=== PATIENT | male | born 1950 | race Caucasian/White ===

== ENCOUNTER 2022-08-29 14:55 | Outpatient (OUT) | payer MEDICARE, SELFPAY ==
[2022-08-29 16:05] LABS: Prostate Specific Antigen Dx <0.13 ng/mL (<=4.00)
== END 2022-08-29 14:56 | disposition home or self-care (01) ==
PROVIDERS: PCP Family Medicine; Visit Provider Urology
DX: C61 Malignant neoplasm of prostate (principal)
CPT/HCPCS: 36415; 84153

== ENCOUNTER 2023-03-31 15:04 | Outpatient (OUT) | payer MEDICARE, SELFPAY ==
[2023-03-31 16:36] LABS: Prostate Specific Antigen Dx <0.13 ng/mL (<=4.00)
== END 2023-03-31 15:05 | disposition home or self-care (01) ==
LOC: LAB 15:05
PROVIDERS: PCP Family Medicine; Visit Provider Radiology Radiation Oncology
DX: C61 Malignant neoplasm of prostate (principal)
CPT/HCPCS: 36415; 84153

== ENCOUNTER 2023-07-13 13:59 | Outpatient (OUT) | payer MEDICARE, SELFPAY ==
--- OUTSIDE RECORDS SUMMARY | 2023-07-13 14:14 | XMS_ITS | CCD ---
Author Organization [facility] Care Team Providers Care Toppiece Cutter Name Role Phone Kevin Brewer Unavailable Unavailable Unavailable Unavailable Unavailable Kevin Brewer Primary Care Provider [phone] Carine DELGADO, Yin R Unavailable KEVIN BREWER Primary Care Physician Unavailable Unavailable Rodriguezuinbrad II, Parveen Wilder Referring Unav ailable Naderer, Dr. Kevin Vega Primary Care Unavai lable McGuinn II, Parveen Wilder Attending Unav ailable McGuinn II, Parveen Wilder Attending Unav ailable McGuinn II, Parveen Wilder Referring Unav ailable Naderer, Dr. Kevin Vega Primary Care Unavai lable McGuinn II, Parveen Wilder Attending Unav ailable McGuinn II, Parveen Wilder Referring Unav ailable Naderer, Dr. Kevin Vega Primary Care Unavai Kevin Mclain Primary Care Provider [phone] Carine DELGADO, Yin R Unavailable DANIELLA, DR KEVIN Scott Primary Care Unavailable NADEREAmanda, DR KEVIN Scott Admitting Unavailable NADERER, DR KEVIN Scott Attending Unavailable NADEREAmanda, DR KEVIN Scott Consulting Unavailable YOVANAEREAmanda, DR KEIVN Scott Primary Care Unavailable ENGELER, DR BOAZ Denney Admitting Unavailable ENGELER, DR BOAZ Denney Attending Unavailable ENGELER, DR BOAZ Denney Consulting Unavailable YOVANAEREAmanda, DR KEVIN Scott Primary Care Unavailable YIN GROVE Admitting Unavailable YIN GROVE Attending Unavailable YIN GROVE Consulting Unavailable DANIELLA, DR KEVIN Scott Primary Care Unavailable YIN GROVE Admitting Unavailable YIN GROVE Attending Unavailable YIN GROVE Consulting Unavailable Kevin Brewer MD Primary Care Provider PARVEEN MULTANI Attending Unavailable KEVIN BREWER Primary Care UnavailDemond White Attending Unavailable KEVIN BREWER Primary Care Unavailable Demond HIGH Referring Unavailable KEVIN BREWER Primary Care Unavailable Demond HIGH Referring Unavailable Demond HIGH Attending Unavailable Yin GROVE Attending Unavailable Yin GROVE Attending Unavailable Yin GROVE Attending Unavailable KEVIN BREWER Attending Unavailable Allergies Allergy Classification Reported Allergen(s) Allergy Type Date of Onset Reaction(s) Facility (1 source) tamsulosin Drug Allergy 05-31-2021 [facility] Medications Current Medications Medication Drug Class(es) Dates Sig (Normalized) Sig (Original) aspirin 81 mg oral tablet (9 sources) Platelet Aggregation Inhibitor, Nonsteroidal Anti-inflammatory Drug Start: 01-18-2021 take 1 tablet by mouth once daily aspirin 81 mg Oral EC Tab 81 mg = 1 tab(s), Oral, Daily, Refills(s) 0, Prophylaxis Start Date: 01/18/21 Status: Ordered Start: 09-28-2019 End: 04-01-2022 aspirin, enteric coated (ASP IRIN, ENTERIC COATED) 81 mg EC tablet Take 81 mg by mouth. 0 09/28/2019 04/01/2022 Discontinued (Course of therapy completed) Comment on above: Take 81 mg by mouth. atorvastatin 10 mg oral tablet (20 sources) HMG-CoA Reductase Inhibitor Start: 0 take 1 tablet by mouth once daily atorvastatin 10 mg Tab 10 mg = 1 tab(s), Oral, Daily, Refills(s) 0, High cholesterol Start Date: 01/18/21 Status: Ordered Comment on above: Take 10 mg by mouth. 24 hr dilTIAZem hydrochloride 180 mg extended release oral capsule (20 sources) Calcium Channel Braeden Start: 3 take 1 capsule by mouth once daily in the morning dilTIAZem CD (Cardizem CD) 180 mg 24 hr capsule Indications: Paroxysmal atrial fibrillation (CMS/HCC) TAKE 1 CAPSULE BY MOUTH EVERY DAY IN THE MORNING 90 capsule 3 01/13/2023 Active Start: 01-14-20[address] [facility] once daily in the morning dilTIAZem HCl ER Coated Beads 180 MG Oral Capsule Extended Release 24 Hour TAKE 1 CAPSULE BY MOUTH EVERY DAY IN THE MORNING Quantity: 90 Refills: 3 Ordered: 14-Jan-2022 Parveen Multani MD Start : 14-Jan-2022 Active Start: 09-28-2019 take 1 tablet by [facility] every twenty-four hours dilTIAZem LA (CARDIZEM LA) 240 mg 24 hr tablet Take 240 mg by mouth. 0 09/28/2019 Active Start: 09-28-2019 take 1 capsule by mo [facility] once daily in the morning dilTIAZem HCl ER Beads 180 MG Oral Capsule Extended Release 24 Hour TAKE 1 CAPSULE BY MOUTH DAILY IN THE MORNING Quantity: 90 Refills: 3 Ordered: 23-Jan-2021 Parveen Multani MD Start : 22-Jan-2021 Active Comment on above: Take 180 mg by mouth . Take 240 mg by mouth . DilTIAZem (Eqv-Tiazac) 180 mg/24 hours oral capsule, extended release (4 sources) Start: 1 DilTIAZem (Eqv-Tiazac) 180 mg/24 hours oral capsule, extended release 180 mg = 1 cap(s), Oral, Daily, irregular heart rate, Refills(s) 0 Start Date: 01/18/21 Status: Ordered Multi Vitamin+ (3 sources) Start: 1 take 1 capsule by mouth once daily Multi Vitamin+ 1 cap, Oral, Daily, Refill(s) 0, Prophylaxis Start Date: 01/21/21 Status: Ordered 24 hr oxybutynin chloride 10 mg extended release oral tablet (2 sources) Cholinergic Muscarinic Antagonist Start: 2 oxybutynin 10 mg ER Tab Refills(s) 0 Start Date: 08/09/21 Status: Ordered Start: 08-09-2021 oxybutynin 10 mg ER Tab Refills(s) 0 Start Date: 08/09/21 Status: Ordered tamsulosin hydrochloride 0.4 mg oral capsule (13 sources) alpha-Adrenergic Braeden Start: 05-11-2023 tamsu losin 0.4 mg Cap Refills(s) 0 Start Date: 05/11/23 Status: Ordered Start: 08-09-2021 take 1 capsule by mo [facility] once daily tamsulosin (Flomax) 0.4 mg 24 hr capsule Take 1 capsule (0.4 mg) by mouth once daily. 0 12/31/2022 Active Comment on above: Take 0.4 mg by mouth once daily. Completed/Discontinued Medications Medication Drug Class(es) Dates Sig (Normalized) Sig (Original) acetaminophen 325 mg oral tablet (14 sources) Start: 03-07-2021 acetaminophen (TYLENOL) 325 mg tablet Take by mouth. 0 03/07/2021 Active Start: 03-07-2021 take 2 tablets by mo [facility] at bedtime as needed for pain acetaminophen 325 mg Tab 650 mg = 2 tab(s), Oral, Bedtime, PRN as needed for pain Start Date: 03/07/21 Status: Ordered Comment on above: Take by mouth. Acetaminophen / diphenhydrAMINE (8 sources) Histamine-1 Receptor Antagonist acetaminophen/diphen hydramine (TYLENOL PM EXTRA STRENGTH ORAL) Take by mouth. 0 Active Comment on above: Take by mouth. ciprofloxacin 500 mg oral tablet (2 sources) Quinolone Antimicrobial Start: take 1 tablet by mouth twice daily Ciprofloxacin HCl - 500 MG Oral Tablet TAKE 1 TABLET BY MOUTH TWICE DAILY FOR 7 DAYS. START 3 DAYS BEFORE PROCEDURE Quantity: 14 Refills: 0 Ordered: 21-Jan-2021 DO Start : 21-Jan-2021 Complete Flomax 0.4 MG CPCR (6 sources) Flomax 0.4 MG CP CR TAKE 1 CAPSULE AT BEDTIME. Quantity: 0 Refills: 0 Ordered: 24-Jul-2021 DO Active hyoscyamine sulfate 0.12 mg / methenamine 118 mg / methylene blue 10 mg / phenyl salicylate 36 mg / sodium phosphate, monobasic 40.8 mg oral capsule (7 sources) Oxidation-Reduction Agent Start: take 1 capsule by mouth twice daily URO-MP 118-10-40.8-36 mg Take 1 capsule by mouth twice daily. 0 08/09/2021 Active Comment on above: Take 1 capsule by mo [facility] twice daily. naproxen sodium 220 mg oral capsule (2 sources) Nonsteroidal Anti-inflammatory Drug naproxen sodium (ALEVE) 220 mg cap Take by mouth. 0 Active Comment on above: Take by mouth. propafenone hydrochloride 150 mg oral tablet (16 sources) Antiarrhythmic Start: take 1 tablet by mouth three times daily propafenone 150 mg Tab 270 EA, TAKE 1 TABLET BY MOUTH THREE TIMES A DAY, Refills(s) 0 Start Date: 03/21/22 Status: Ordered Comment on above: Take 150 mg by mouth three times daily. Problems Active Problems Problem Classification Problem Date Documented Date Episodic/Chronic Cancer of prostate (20 sources) Malignant tumor of prostate; Translations: [Malignant neoplasm of prostate] Onset: 08-09-2021 Chronic Cardiac dysrhythmias (17 sources) Paroxysmal supraventricular tachycardia; Translations: [Paroxysmal supraventricular tachycardia] Onset: 02-06-2023 01-18-2021 Chronic Conduction disorders (4 sources) Bifascicular block; Translations: [Bifascicular block] Onset: 02-10-2023 02-10-2023 Chronic Disorders of lipid metabolism (20 sources) Hyperlipidemia; Translations: [Other and unspecified hyperlipidemia] Onset: 07-09-2022 01-18-2021 Chronic Esophageal disorders (6 sources) Gastroesophageal reflux disease without esophagitis 01-18-2021 Chronic Essential hypertension (20 sources) Hypertensive disorder; Translations: [Unspecified essential hypertension] Onset: 07-02-2022 01-18-2021 Chronic Genitourinary symptoms and ill-defined conditions (2 sources) Urge incontinence; Translations: [Urge incontinence of urine] Onset: 05-11-2023 Chronic Hyperplasia of prostate (12 sources) Benign prostatic hypertrophy with outflow obstruction; Translations: [Benign prostatic hyperplasia with lower urinary tract symptoms] Onset: 08-09-2021 01-21-2021 Chronic Nonspecific chest pain (10 sources) Chest pain; Translations: [Chest pain, unspecified] Onset: 02-06-2023 02-06-2023 Episodic Other aftercare (1 source) 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 continuous 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 (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; Translations: [OTH MINING SUPPORT WORKER CURRENT DRUG THERAPY] Onset: 07-09-2022 Episodic Other diseases of kidney and ureters (1 source) Urinary tract obstruction; Translations: [Other obstructive and reflux uropathy] Onset: 09-27-2021 Episodic Other nutritional; endocrine; and metabolic disorders (6 sources) Obesity; Translations: [Obesity, unspecified] Chronic Other nutritional; endocrine; and metabolic disorders (6 sources) Severe obesity 01-18-2021 Chronic Other nutritional; endocrine; and metabolic disorders (5 sources) Body mass index 40+ - severely obese; Translations: [Morbid obesity] Onset: 02-10-2023 02-10-2023 Chronic Other nutritional; endocrine; and metabolic disorders (2 sources) Morbid (severe) obesity due to excess calories; Translations: [Morbid (severe) obesity due to excess calories (CMS/HCC)] Onset: 02-10-2023 Chronic Other nutritional; endocrine; and metabolic disorders (2 sources) Body mass index (BMI) 40.0-44.9, adult; Translations: [Body mass index (BMI) 40.0-44.9, adult (CMS/HCC)] Onset: 02-10-2023 Chronic Other screening for suspected conditions (not mental disorders or infectious disease) (6 sources) Raised prostate specific antigen 01-21-2021 Episodic Residual codes; unclassified (6 sources) Sleep apnea 03-07-2021 Chronic Residual codes; unclassified (6 sources) Family history of prostate cancer 01-21-2021 Episodic Residual codes; unclassified (5 sources) Family history of cancer; Translations: [Family history of malignant neoplasm of prostate] Onset: 08-09-2021 Episodic Screening and history of mental health and substance abuse codes (9 sources) Ex-smoker; Translations: [Personal history of tobacco use] Episodic Comment on above: Quit in 1970s; Unclassified (1 source) Supraventricular tachycardia, unspecified; Translations: [Supraventricular tachycardia, unspecified] Onset: 02-06-2023 Past or Other Problems Problem Classification Problem Date Documented Date Episodic/Chronic Calculus of urinary tract (1 source) Calculus of ureter; Translations: [CALCULUS OF URETER] Onset: 09-24-2021 Episodic Residual codes; unclassified (1 source) Family history of malignant neoplasm of prostate; Translations: [FAMILY HX MALIG NEOPLASM PROSTATE] Onset: 03-13-2022 Episodic Unclassified (1 source) Onset: 02-10-2023 02-10-2023 Unclassified (1 source) Supraventricular tachycardia, unspecified; Translations: [Supraventricular tachycardia, unspecified] Onset: 02-10-2023 Results Test Name Value Interpretation Reference Range Facility Ambulatory Visit Summaryon 0 05-11-2023 Ambulatory Visit Summary LUIS LIUS :1950 Visit Date:05/11/2023 Ambulatory Visit Instructions Your Diagnosis Prostate cancer Urge incontinence BPH with urinary obstruction Family history of prostate cancer Your Care Team Attending Physician - Yin GROVE MD Primary Care Physician - KEVIN BREWER MD This Is Your Medications List tamsulosin (tamsulosin 0.4 mg Cap) Contact prescribing physician if questions or concerns atorvastatin (atorvastatin 10 mg Tab) diltiazem (DilTIAZem (Eqv-Tiazac) 180 mg/24 hours oral capsule, extended release) propafenone (propafenone 150 mg Tab) Procedures Performed Brachytherapy (06/27/2021), Transrectal biopsy of prostate (03/14/2021), Colonoscopy, Repair of wrist. Discharge Vitals Height 187 cm Height 74 in Weight 147.7 kg Weight 324.94 lb BMI 42.24 What to do next Scheduled Follow-Up Appointments Thursday 9:45 AM EDT With: CARINE DELGADO, Yin Patel Where: [facility] Patient Educationon 05-11-19 Patient Education Oncology Prostate Cancer Screening Prostate cancer screening is testing that is done to check for the presence of prostate cancer in men. The prostate gland is a walnut-sized gland that is located below the bladder and in front of the rectum in males. The function of the prostate is to add fluid to semen during ejaculation. Prostate cancer is one of the most common types of cancer in men. Who should have prostate cancer screening? Screening recommendations vary based on age and other risk factors, as well as between the professional organizations who make the recommendations. In general, screening is recommended if: ? You are age 50 to 70 and have an average risk for prostate cancer. You should talk with your health care provider about your need for screening and how often screening should be done. Because most prostate cancers are slow growing and will not cause , screening in this age group is generally reserved for men who have a 10- to 15-year life expectancy. ? You are younger than age 50, and you have these risk factors: ? Having a father, brother, or uncle who has been diagnosed with prostate cancer. The risk is higher if your family member's cancer occurred at an early age or if you have multiple family members with prostate cancer at an early age. ? Being a male who is Black or is of [place] or sub-Saharan descent. In general, screening is not recommended if: ? You are younger than age 40. ? You are between the ages of 40 and 49 and you have no risk factors. ? You are 70 years of age or older. At this age, the risks that screening can cause are greater than the benefits that it may provide. If you are at high risk for prostate cancer, your health care provider may recommend that you have screenings more often or that you start screening at a younger age. How is screening for prostate cancer done? The recommended prostate cancer screening test is a blood test called the prostate-specific antigen (PSA) test. PSA is a protein that is made in the prostate. As you age, your prostate naturally produces more PSA. Abnormally high PSA levels may be caused by: ? Prostate cancer. ? An enlarged prostate that is not caused by cancer (benign prostatic hyperplasia, or BPH). This condition is very common in older men. ? A prostate gland infection (prostatitis) or urinary tract infection. ? Certain medicines such as male hormones (like testosterone) or other medicines that raise testosterone levels. A rectal exam may be done as part of prostate cancer screening to help provide information about the size of your prostate gland. When a rectal exam is performed, it should be done after the PSA level is drawn to avoid any effect on the results. Depending on the PSA results, you may need more tests, such as: ? A physical exam to check the size of your prostate gland, if not done as part of screening. ? Blood and imaging tests. ? A procedure to remove tissue samples from your prostate gland for testing (biopsy). This is the only way to know for certain if you have prostate cancer. What are the benefits of prostate cancer screening? ? Screening can help to identify cancer at an early stage, before symptoms start and when the cancer can be treated more easily. ? There is a small chance that screening may lower your risk of dying from prostate cancer. The chance is small because prostate cancer is a slow-growing cancer, and most men with prostate cancer from a different cause. What are the risks of prostate cancer screening? The main risk of prostate cancer screening is diagnosing and treating prostate cancer that would never have caused any symptoms or problems. This is called overdiagnosisand overtreatment. PSA screening cannot tell you if your PSA is high due to cancer or a different cause. A prostate biopsy is the only procedure to diagnose prostate cancer. Even the results of a biopsy may not tell you if your cancer needs to be treated. Slow-growing prostate cancer may not need any treatment other than monitoring, so diagnosing and treating it may cause unnecessary stress or other side effects. Questions to ask your health care provider ? When should I start prostate cancer screening? ? What is my risk for prostate cancer? ? How often do I need screening? ? What type of screening tests do I need? ? How do I get my test results? ? What do my results mean? ? Do I need treatment? Where to find more information ? The [place] [employer]: www.cancer.org ? [place] [employer]: www.auanet.org Contact a health care provider if: ? You have difficulty urinating. ? You have pain when you urinate or ejaculate. ? You have blood in your urine or semen. ? You have pain in your back or in the area of your prostate. Summary ? Prostate cancer is a common type of cancer in men. The prostate gland is located below the bladder and in front of the rectum. This gland adds flu (more content not included)... Normal [facility] Urology Office/Clinic Noteon 05-11-2023 Urology Office/Clinic Note Chief Complaint 6m PSA HPI Staff 8m PSA DX: Prostate Cancer, BPH & Fam Hx of Prostate Cancer (father & 2 brothers) S/p Brachytherapy done 06/27/2021. Did not receive Lupron Inj at time of last encounter due to low PSA. *Tamsulosin 0.4mg daily managed by PCP. PRW did advise Tamsulosin no longer needed at time of last encounter.-pt still taking. PSA 03/31/23- <0.13 Mild intermittent burning since Brachytherapy in 2021. Burning is not as intense. Denies pain and visible blood in urine. Denies complaints with stream. Does have occasional loss of bladder control. Urge incontinence. Not enough to warrant wearing protection. Denies all other urinary concerns at this time. History of Present Illness Tests reviewed: reviewed UA, PSA I have reviewed the previous health record information and history for this patient from Dr. Grove. I have reviewed and verified the staff HPI to be accurate for this encounter. Review of Systems PHQ Score Initial Depression Screen Score: 0 SCORE ROS - Provider Constitutional: denies weight loss, denies hot flashes. Eyes: denies eye problems. Gastrointestinal: denies nausea, denies vomiting. Cardiovascular: denies chest pain or angina. Integumentary: no dryness Musculoskeletal: denies musculoskeletal symptoms. ENMT: denies otolaryngeal symptoms. Respiratory: no shortness of breath. Heme/Lymph: denies easy bleeding tendency, denies easy bruising tendency. Psychiatric: no confusion, no anxiety. Genitourinary: See HPI. Physical Exam Vitals & Measurements HT: 74 in HT: 187 cm WT: 147.7 kg WT: 324.94 lb BMI: 42.24 General Appearance: alert, no distress, well nourished, well developed male. Genitourinary: normal scrotum, normal testes, normal urethra, normal epididymis, normal vas deferens/spermatic cord. Flank Pain: none. Bladder: nonpalpable. Assessment/Plan 1. Prostate cancer (C61: Malignant neoplasm of prostate) Fusion bx 03/14/21 - FELICIA x2, G7 (3+4) x10 with perineural invasion, and G6 (3+3) x4. CT 03/29/21 - no metastatic disease but bone scan shows nonspecific focus of mild increase uptake at the right 5th costochondral junction related to fracture or costochondritis. Brachytherapy 06/27/21. PSA: 12/05/20 - 4.3 and 8.6% (prior to tx) 07/16/21 - 0.20 09/23/21 - <0.13 03/11/22 - <0.13 08/29/22 - <0.13 03/31/23 - <0.13 Last Lupron done 09/30/21. Continues to follow w/ Dr. High. Discussed PSA level, remains stable and undetectable. Does not warrant Lupron injection. Will continue to monitor q6mos. -PSA in 6 mos and f/u in 1 yr w/ repeat PSA 2. Urge incontinence (N39.41: Urge incontinence) Has occasional loss of bladder control, exacerbated by coffee intake. Not bothersome enough to wear protection. 3. BPH with urinary obstruction (N40.1: Benign prostatic hyperplasia with lower urinary tract symptoms) Tamsulosin 0.4mg qd, managed by PCP. Advised pt he does not have to take this daily since he is doing well. Has minimal burning with urination and improves when he takes Tamsulosin. -Cont Tamsulosin wo changes 4. Family history of prostate cancer (Z80.42: Family history of malignant neoplasm of prostate) Father and two brothers. [1] Follow-up With When Contact Information CARINE DELGADO, Yin Patel, URL [facility] [address], [place] [address]- [phone] Additional Instructions: PSA in 6 mos and f/u in 1 yr w/ repeat PSA Patient Education Prostate Cancer Screening I, Kimberly Nash, personally scribed for Dr. Grove on 05/11/2023 10:32:17. . Documentation recorded by the scribe, Kimberly Nash, accurately reflects the services(s) I performed and decisions made by me. Authenticated by Dr. Grove on 05/11/2023 10:34:42. Problem List/Past Medical History Ongoing Apnea, sleep Benign essential hypertension BPH with urinary obstruction Class 2 severe obesity due to excess calories with serious comorbidity and body mass index (BMI) of 35.0 to 35.9 in adult Dyslipidemia Elevated PSA Family history of prostate cancer GERD without esophagitis Prostate cancer SVT (supraventricular tachycardia) Urge incontinence Historical No qualifying data Procedure/Surgical History Brachytherapy (06/27/2021), Transrectal biopsy of prostate (03/14/2021), Colonoscopy, Repair of wrist. Medications atorvastatin 10 mg Tab, 10 mg= 1 tab(s), Oral, Daily DilTIAZem (Eqv-Tiazac) 180 mg/24 hours oral capsule, extended release, 180 mg= 1 cap(s), Oral, Daily propafenone 150 mg Tab tamsulosin 0.4 mg Cap Allergies No Known Allergies Social History Alcohol - High Risk, 03/07/2021 Current, Wine, 3-5 times per week, 03/07/2021 Substance Abuse - Denies Substance Abuse, 03/07/2021 Tobacco - Denies Tobacco Use, 03/07/2021 Never Smokeless Tobacco Use:. Household tobacco concerns: No. Yes, 05/11/2023 Family History Cancer: Mother. Pancreatic cancer: Father. Prostate ca (more content not included)... Normal [facility] Comment on above: Result Comment: Elec tronically Signed By: Yin GROVE MD.br\Date and Time Signed: 05/11/23 10:34 EDT\.br\Electronically Co-Signed By: Kimberly Nash.br\Date and Time Co-Signed: 05/11/23 10:32 EDT CNOVon 04-07-2023 CNOV Office Visit ([facility] ) -------- ANSELMOLUIS ZUÑIGA ([id number]) 1950 M Date Time Provider Department 04/07/23 1:15 PM Demond HIGH During your visit today, we recorded the following information about you: Temperature Pulse Respiration Blood pressure 97.9 degrees 80/minute 16/minute 139/83 Weight 149.2 kg Demond High MD 04/15/2023 3:32 PM Signed Radiation Oncology - Follow Up Note PATIENT NAME: Luis Luis PATIENT DIAGNOSIS: Prostate adenocarcinoma, initial PSA 4.3, biopsy [place] score 3 + 4 = 7 (grade group 2), clinical stage T2a, N0, M0, stage IIB [T1-T2, N0, M0, PSA <20, GG 2] (AJCC 8th ed.), s/p TRUS Random and MRI fusion biopsy. RADIATION SUMMARY: DATES OF TREATMENT: Pelvic external beam 04/17/2021- 05/22/2021 Prostate brachytherapy: 06/27/2021 DELIVERED DOSE: Pelvis/ Prostate 45 Gy in 25 fractions Prostate brachytherapy 100 Robles, medium 103 sources, 107.14 mCi INTERVAL HISTORY: Doing well. Denies any problems or concerns. PSA HISTORY: PSA. (no units) Date Value 03/31/2023 <0.13 08/29/2022 <0.13 03/11/2022 <0.13 07/16/2021 0.20 ALLERGIES No Known Allergies naproxen sodium (ALEVE) 220 mg cap Take by mouth. URO-MP 118-10-40.8-36 mg Take 1 capsule by mouth twice daily. propafenone (RYTHMOL) 150 mg tablet Take 150 mg by mouth three times daily. tamsulosin (FLOMAX) 0.4 mg Take 0.4 mg by mouth once daily. acetaminophen/diphenhydr amine (TYLENOL PM EXTRA STRENGTH ORAL) Take by mouth. acetaminophen (TYLENOL) 325 mg tablet Take by mouth. atorvastatin (LIPITOR) 10 mg tablet Take 10 mg by mouth. dilTIAZem LA (CARDIZEM LA) 240 mg 24 hr tablet Take 240 mg by mouth. REVIEW OF SYSTEMS: D/N = 4-6/0-1 Hematuria: No Dysuria: No Incontinence: No. Occasional no pad Urgency: Mild Catheter use: No Medications to aid urination: Patient restarted Flomax on his own without hypotensive event or tachycardia portable - Total AUA Score: 12 Bowel movement frequency: 1/day Bowel movement quality: normal Blood per rectum: none Androgen deprivation: Lupron, was discontinued PHYSICAL EXAM: There were no vitals taken for this visit. KPS: 100 General Appearance: Alert and oriented. No acute distress. Rectal exam is deferred. ASSESSMENT/PLAN: Prostate adenocarcinoma, initial PSA 4.3, biopsy [place] score 3 + 4 = 7 (grade group 2), clinical stage T2a, N0, M0, stage IIB [T1-T2, N0, M0, PSA <20, GG 2] (AJCC 8th ed.), s/p TRUS Random and MRI fusion biopsy. PSA remains undetectable. No postradiation related issues. Plan see patient back in one year for further postradiation follow-up. Signed by: Demond High MD cc: Kevin Brewer MD ([facility]) [address] [place] [id number] Portions of the above note extracted and edited from previous visit as well as active information included in the EMR. Kelly Guo LPN 04/15/2023 3:32 PM Signed AUA=12 Referring Provider: Demond HIGH [[id number]] Allergies As of Date: 04/07/2023 (No Known Allergies) Date Reviewed: 04/07/2023 Reviewed by: Kelly Guo LPN - Fully Assessed Reason for Visit: Prostate Cancer [590] Primary Visit Diagnosis:Malignant neoplasm of prostate (HCC) [C61] Order(s):PSA (OUTSIDE) [[id number]] Order #: [id number] PSA/PROSTSPECAG DIAG [SQPSA] Order #: [id number] FUTURE Prescriptions as of 04/15/2023 - naproxen sodium (ALEVE) 220 mg cap Take by mouth. - URO-MP 118-10-40.8-36 mg Take 1 capsule by mouth twice daily. - propafenone (RYTHMOL) 150 mg tablet Take 150 mg by mouth three times daily. - tamsulosin (FLOMAX) 0.4 mg Take 0.4 mg by mouth once daily. - acetaminophen/diphenhydr amine (TYLENOL PM EXTRA STRENGTH ORAL) Take by mouth. - acetaminophen (TYLENOL) 325 mg tablet Take by mouth. - atorvastatin (LIPITOR) 10 mg tablet Take 10 mg by mouth. - dilTIAZem LA (CARDIZEM LA) 240 mg 24 hr tablet Take 240 mg by mouth. Problem List As Of Date 04/07/2023 Noted Resolved Prostate cancer (HCC) [C61] 04/01/2022 Visit Notes: >> Kelly Guo LPN Tue Apr 07, 2023 1:09 PM Status: Signed AUA=12 Disposition: Return in about 1 year (around 04/07/2024). Follow-up and Disposition History for Encounter Date Provider Department Center 04/07/2023 [id number] [facility] Encounter Status:Closed by Demond HIGH on 04/15/23 Normal [facility] Lab Reportson 04-01-2023 Lab Reports [id number] Normal [facility] ECG 12 Leadon 02-10-2023 Normal sinus rhythm Right bundle branch block left anterior fascicular block Bifascicular block Cannot exclude age-indeterminate inferior infarct QTc 443 ms [facility] Work Phone: CNOVon 09-30-2022 CNOV Office Visit (RADTSA ) -------- LUIS LUIS ([id number]) 1950 M Date Time Provider Department 09/30/22 2:00 PM Demond HIGH During your visit today, we recorded the following information about you: Temperature Pulse Respiration Blood pressure 96.7 degrees 92/minute 18/minute 143/85 Weight 145 kg Naida Jacobo RN 10/03/2022 8:14 AM Signed AUA 14 YOLANDA Solano G Phillip, MD 10/03/2022 8:14 AM Signed Radiation Oncology - Follow Up Note PATIENT NAME: Luis Luis PATIENT DIAGNOSIS: Prostate adenocarcinoma, initial PSA 4.3, biopsy [place] score 3 + 4 = 7 (grade group 2), clinical stage T2a, N0, M0, stage IIB [T1-T2, N0, M0, PSA <20, GG 2] (AJCC 8th ed.), s/p TRUS Random and MRI fusion biopsy. RADIATION SUMMARY: DATES OF TREATMENT: Pelvic external beam 04/17/2021- 05/22/2021 Prostate brachytherapy: 06/27/2021 DELIVERED DOSE: Pelvis/ Prostate 45 Gy in 25 fractions Prostate brachytherapy 100 Robles, medium 103 sources, 107.14 mCi INTERVAL HISTORY: Doing well. Denies any problems or concerns. PSA HISTORY: PSA. (no units) Date Value 08/29/2022 <0.13 03/11/2022 <0.13 07/16/2021 0.20 ALLERGIES No Known Allergies naproxen sodium (ALEVE) 220 mg cap Take by mouth. propafenone (RYTHMOL) 150 mg tablet Take 150 mg by mouth three times daily. tamsulosin (FLOMAX) 0.4 mg Take 0.4 mg by mouth once daily. acetaminophen/diphenhydr amine (TYLENOL PM EXTRA STRENGTH ORAL) Take by mouth. acetaminophen (TYLENOL) 325 mg tablet Take by mouth. atorvastatin (LIPITOR) 10 mg tablet Take 10 mg by mouth. dilTIAZem LA (CARDIZEM LA) 240 mg 24 hr tablet Take 240 mg by mouth. URO-MP 118-10-40.8-36 mg Take 1 capsule by mouth twice daily. REVIEW OF SYSTEMS: D/N = 4-6/0-1 Hematuria: No Dysuria: No Incontinence: No. Occasional no pad Urgency: Mild Catheter use: No Medications to aid urination: Patient restarted Flomax on his own without hypotensive event or tachycardia portable - Total AUA Score: 14 Bowel movement frequency: 1/day Bowel movement quality: normal Blood per rectum: none Androgen deprivation: Lupron, was discontinued PHYSICAL EXAM: BP 143/85 Pulse 92 Temp (!) 35.9 ?C (96.7 ?F) Resp 18 Wt (!) 145 kg (319 lb 9.6 oz) SpO2 94% KPS: 100 General Appearance: Alert and oriented. No acute distress. Rectal exam is deferred. ASSESSMENT/PLAN: Prostate adenocarcinoma, initial PSA 4.3, biopsy Cy score 3 + 4 = 7 (grade group 2), clinical stage T2a, N0, M0, stage IIB [T1-T2, N0, M0, PSA <20, GG 2] (AJCC 8th ed.), s/p TRUS Random and MRI fusion biopsy. PSA remains undetectable. No postradiation related issues. Plan see patient back in 6 months for further postradiation follow-up. Signed by: Demond High MD cc: Kevin Berwer MD ([facility]) [address] [place] [address] Portions of the above note extracted and edited from previous visit as well as active information included in the EMR. Referring Provider: Demond HIGH [[id number]] Allergies As of Date: 09/30/2022 (No Known Allergies) Date Reviewed: 09/30/2022 Reviewed by: Naida Jacobo RN - Fully Assessed Reason for Visit: Prostate Cancer [590] Primary Visit Diagnosis:Malignant neoplasm of prostate (HCC) [C61] Order(s):PSA (OUTSIDE) [[id number]] Order #: [id number] PSA/PROSTSPECAG DIAG [SQPSA] Order #: [id number] FUTURE Prescriptions as of 10/03/2022 - naproxen sodium (ALEVE) 220 mg cap Take by mouth. - URO-MP 118-10-40.8-36 mg Take 1 capsule by mouth twice daily. - propafenone (RYTHMOL) 150 mg tablet Take 150 mg by mouth three times daily. - tamsulosin (FLOMAX) 0.4 mg Take 0.4 mg by mouth once daily. - acetaminophen/diphenhydr amine (TYLENOL PM EXTRA STRENGTH ORAL) Take by mouth. - acetaminophen (TYLENOL) 325 mg tablet Take by mouth. - atorvastatin (LIPITOR) 10 mg tablet Take 10 mg by mouth. - dilTIAZem LA (CARDIZEM LA) 240 mg 24 hr tablet Take 240 mg by mouth. Problem List As Of Date 09/30/2022 Noted Resolved Prostate cancer (HCC) [C61] 04/01/2022 Visit Notes: >> Naida Jacobo RN Tue Sep 30, 2022 1:59 PM Status: Signed AUA 14 Naida Jacobo RN Disposition: Return in about 6 months (around 04/02/2023). Follow-up and Disposition History for Encounter Date Provider Department Center 09/30/2022 [id number] [facility] Encounter Status:Closed by Demond HIGH on 10/03/22 Normal [facility] Lab Reportson 09-09-2022 Lab Reports [id number]: 127 Normal [facility] Ambulatory Visit Summaryon 0 09-08-2022 Ambulatory Visit Summary LUIS LUIS :1950 Visit Date:09/08/2022 Ambulatory Visit Instructions Your Diagnosis Prostate cancer BPH with urinary obstruction Family history of prostate cancer Tests Performed Urnls Dip Stick Auto w/o Microscopy POC 30701 Your Care Team Attending Physician - CARINE DELGADO, Yin Patel Primary Care Physician - KEVIN BREWER MD This Is Your Medications List Contact prescribing physician if questions or concerns atorvastatin (atorvastatin 10 mg Tab) diltiazem (DilTIAZem (Eqv-Tiazac) 180 mg/24 hours oral capsule, extended release) propafenone (propafenone 150 mg Tab) [Image Removed: STOP]Stop taking these medications tamsulosin (tamsulosin 0.4 mg Cap) Procedures Performed Brachytherapy (06/27/2021), Transrectal biopsy of prostate (03/14/2021), Colonoscopy, Repair of wrist. Discharge Vitals Heart Rate (Peripheral) 72 Respiratory Rate 16 Blood Pressure 132/73 Height 187 cm Height 74 in Weight 140 kg Weight 308 lb BMI 40.04 What to do next Scheduled Follow-Up Appointments Thursday 9:45 AM EDT With: Yin GROVE MD Where: [facility] Normal [facility] Patient Educationon 09-09-19 Patient Education Urology Benign Prostatic Hyperplasia Benign prostatic hyperplasia (BPH) is an enlarged prostate gland that is caused by the normal aging process. The prostate may get bigger as a man gets older. The condition is not caused by cancer. The prostate is a walnut-sized gland that is involved in the production of semen. It is located in front of the rectum and below the bladder. The bladder stores urine. The urethra carries stored urine out of the body. An enlarged prostate can press on the urethra. This can make it harder to pass urine. The buildup of urine in the bladder can cause infection. Back pressure and infection may progress to bladder damage and kidney (renal) failure. What are the causes? This condition is part of the normal aging process. However, not all men develop problems from this condition. If the prostate enlarges away from the urethra, urine flow will not be blocked. If it enlarges toward the urethra and compresses it, there will be problems passing urine. What increases the risk? This condition is more likely to develop in men older than 50 years. What are the signs or symptoms? Symptoms of this condition include: ? Getting up often during the night to urinate. ? Needing to urinate frequently during the day. ? Difficulty starting urine flow. ? Decrease in size and strength of your urine stream. ? Leaking (dribbling) after urinating. ? Inability to pass urine. This needs immediate treatment. ? Inability to completely empty your bladder. ? Pain when you pass urine. This is more common if there is also an infection. ? Urinary tract infection (UTI). How is this diagnosed? This condition is diagnosed based on your medical history, a physical exam, and your symptoms. Tests will also be done, such as: ? A post-void bladder scan. This measures any amount of urine that may remain in your bladder after you finish urinating. ? A digital rectal exam. In a rectal exam, your health care provider checks your prostate by putting a lubricated, gloved finger into your rectum to feel the back of your prostate gland. This exam detects the size of your gland and any abnormal lumps or growths. ? An exam of your urine (urinalysis). ? A prostate specific antigen (PSA) screening. This is a blood test used to screen for prostate cancer. ? An ultrasound. This test uses sound waves to electronically produce a picture of your prostate gland. Your health care provider may refer you to a specialist in kidney and prostate diseases (urologist). How is this treated? Once symptoms begin, your health care provider will monitor your condition (active surveillance or watchful waiting). Treatment for this condition will depend on the severity of your condition. Treatment may include: ? Observation and yearly exams. This may be the only treatment needed if your condition and symptoms are mild. ? Medicines to relieve your symptoms, including: ? Medicines to shrink the prostate. ? Medicines to relax the muscle of the prostate. ? Surgery in severe cases. Surgery may include: ? Prostatectomy. In this procedure, the prostate tissue is removed completely through an open incision or with a laparoscope or robotics. ? Transurethral resection of the prostate (TURP). In this procedure, a tool is inserted through the opening at the tip of the penis (urethra). It is used to cut away tissue of the inner core of the prostate. The pieces are removed through the same opening of the penis. This removes the blockage. ? Transurethral incision (TUIP). In this procedure, small cuts are made in the prostate. This lessens the prostate's pressure on the urethra. ? Transurethral microwave thermotherapy (TUMT). This procedure uses microwaves to create heat. The heat destroys and removes a small amount of prostate tissue. ? Transurethral needle ablation (TUNA). This procedure uses radio frequencies to destroy and remove a small amount of prostate tissue. ? Interstitial laser coagulation (ILC). This procedure uses a laser to destroy and remove a small amount of prostate tissue. ? Transurethral electrovaporization (TUVP). This procedure uses electrodes to destroy and remove a small amount of prostate tissue. ? Prostatic urethral lift. This procedure inserts an implant to push the lobes of the prostate away from the urethra. Follow these instructions at home: ? Take ezlh-hcd-eltftsz and prescription medicines only as told by your health care provider. ? Monitor your symptoms for any changes. Contact your health care provider with any changes. ? Avoid drinking large amounts of liquid before going to bed or out in public. ? Avoid or reduce how much caffeine or alcohol you drink. ? Give yourself time when you urinate. ? Keep all follow-up visits. This is important. Contact a health care provider if: ? You have unexplained back pain. ? Your symptoms do not get better with treatment. ? You develop side effects from the medicine (more content not included)... Normal [facility] Urology Office/Clinic Noteon 09-08-2022 Urology Office/Clinic Note Chief Complaint prostate cancer HPI Staff 6 month f/u with PSA and Lupron injection. Previous dx of prostate cancer (Brachytherapy 06/27/21), BPH with urinary obstruction and family hx of prostate cancer (father and 2 sons). Current PSA done 08/29/22 is <0.13 and previous done 03/11/22 was the same. Dysuria: no Incomplete bladder emptying: no Hematuria: no Frequency: yes due to fluid intake Urgency: no Nocturia: 0-1x Stream: no straining Leaking: yes a little Post void dripping: no Wearing pads/ Depends: no Urge incontinence: no Stress incontinence: no Incontinence without Sensory Awareness: no Abdominal pain: no Flank pain: no Sexual complaints: no History of Present Illness Tests reviewed: reviewed UA, PSA I have reviewed the previous health record information and history for this patient from Dr. Grove. I have reviewed and verified the staff HPI to be accurate for this encounter. There have been no associated fever, chills, flank pain, or blood in the urine. Denies any urinary infections since last encounter. Review of Systems PHQ Score Initial Depression Screen Score: 0 ROS - Provider Constitutional: denies weight loss, denies hot flashes. Eyes: denies eye problems. Gastrointestinal: denies nausea, denies vomiting. Cardiovascular: denies chest pain or angina. Integumentary: no dryness Musculoskeletal: denies musculoskeletal symptoms. ENMT: denies otolaryngeal symptoms. Respiratory: no shortness of breath. Heme/Lymph: denies easy bleeding tendency, denies easy bruising tendency. Psychiatric: no confusion, no anxiety. Genitourinary: See HPI. Physical Exam Vitals & Measurements HR: 72(Peripheral) RR: 16 BP: 132/73 HT: 74 in HT: 187 cm WT: 140 kg WT: 308 lb BMI: 40.04 General Appearance: alert, no distress, well nourished, well developed male. Genitourinary: normal scrotum, normal testes, normal urethra, normal epididymis, normal vas deferens/spermatic cord. Flank Pain: none. Bladder: nonpalpable. Assessment/Plan 1. Prostate cancer (C61: Malignant neoplasm of prostate) S/p Brachytherapy done 06/27/2021. Fusion bx 03/14/21; FELICIA x2, G7 (3+4) x10 with perineural invasion, and G6 (3+3) x4. CT done on 03/29/21 showed no metastatic disease but bone scan shows nonspecific focus of mild increase uptake at the right 5th costochondral junction related to fracture or costochondritis. PSA: 12/05/20 - 4.3 and 8.6% (prior to tx) 07/16/21 - 0.20 09/23/21 - <0.13 03/11/22 - <0.13 08/29/22 - <0.13 Last Lupron done 09/30/21, previously done 04/01/21. Discussed pt does not need injection today due to low PSA. Pt agrees with plan. Follow up with PSA in 8 months or sooner if needed. All questions/concerns were discussed. Pt to call the office if he encounters any issues prior. Pt acknowledges understanding. 2. BPH with urinary obstruction (N40.1: Benign prostatic hyperplasia with lower urinary tract symptoms) Tamsulosin 0.4mg daily managed by PCP. Pt is doing well with urination and denies any complications at this time. Discussed Tamsulosin is no longer needed. UA today negative for blood and infection. 3. Family history of prostate cancer (Z80.42: Family history of malignant neoplasm of prostate) Father and two brothers. [1] Follow-up With When Contact Information CARINE DELGADO, ANITA Kaur In 8 months [facility] [address] [place] [phone]- [phone] Additional Instructions: PSA Patient Education Benign Prostatic Hyperplasia I, Kimberly Nash, personally scribed for Dr. Grove on 09/08/2022 12:20:46. . Documentation recorded by the scribe, Kimberly Nash, accurately reflects the services(s) I performed and decisions made by me. Authenticated by Dr. Grove on 09/08/2022 12:22:21. Problem List/Past Medical History Ongoing Apnea, sleep Benign essential hypertension BPH with urinary obstruction Class 2 severe obesity due to excess calories with serious comorbidity and body mass index (BMI) of 35.0 to 35.9 in adult Dyslipidemia Elevated PSA Family history of prostate cancer GERD without esophagitis Prostate cancer SVT (supraventricular tachycardia) Historical No qualifying data Procedure/Surgical History Brachytherapy (06/27/2021), Transrectal biopsy of prostate (03/14/2021), Colonoscopy, Repair of wrist. Medications atorvastatin 10 mg Tab, 10 mg= 1 tab(s), Oral, Daily DilTIAZem (Eqv-Tiazac) 180 mg/24 hours oral capsule, extended release, 180 mg= 1 cap(s), Oral, Daily Lupron Depot 45 mg/6 months intramuscular injection, extended release, 45 mg, IntraMuscular, Once propafenone 150 mg Tab tamsulosin 0.4 mg Cap Allergies No Known Allergies Social History Alcohol - High Risk, 03/07/2021 Current, Wine, 3-5 times per week, 03/07/2021 Substance Abuse - Denies Substance Abuse, 03/07/2021 Tobacco - Denies Tobacco Use, 03/07/2021 Never (less than 100 in lifetime) To (more content not included)... Normal [facility] Comment on above: Result Comment: Elec tronically Signed By: Yin GROVE MD\.br\Date and Time Signed: 09/08/22 12:22 EDT\.br\Electronically Co-Signed By: Kimberly Nash.br\Date and Time Co-Signed: 09/08/22 12:20 EDT CBC AUTO DIFFon 07-02-2022 BASO # 0.1 103/ul Normal 0.0-0.1 [facility] Comment on above: Performed By: #### C BC #### [facility] [address] [place] [address] Dr. Shama Naylor Basophils/100 WBC (Bld) 0.8 % Normal 0.2-2.0 [facility] Comment on above: Performed By: #### C BC #### [facility] [address] [place] [address] Dr. Shama Naylor EO # 0.1 103/ul Normal 0.0-0.7 [facility] Comment on above: Performed By: #### C BC #### [facility] [address] [place] [address] Dr. Shama Naylor Eosinophils/100 WBC (Bld) 2.0 % Normal 0.9-7.0 [facility] Comment on above: Performed By: #### C BC #### [facility] [address] [place] [address] Dr. Shama Naylor Erythrocyte distribution width (RBC) [Ratio] 13.6 % Normal 11.0-15.0 [facility] Comment on above: Performed By: #### C BC #### [facility] [address] [place] [address] Dr. Shama Naylor Hematocrit (Bld) [Volume fraction] 40.0 % Critically low 42.0-54.0 [facility] Comment on above: Performed By: #### C BC #### [facility] [address] [place] [address] Dr. Shama Naylor Hemoglobin (Bld) [Mass/Vol] 13.6 g/dL Critically low 14.0-18.0 [facility] Comment on above: Performed By: #### C BC #### [facility] [address] [place] [address] Dr. Shama Naylor IG # 0.02 10e3/ul Normal 0.00-0.03 [facility] Comment on above: Performed By: #### C BC #### [facility] [address] [place] [address] Dr. Shama Naylor IG % 0.3 % Normal 0.0-0.5 [facility] Comment on above: Performed By: #### C BC #### [facility] [address] [place] [address] Dr. Shama Naylor LYMPH # 1.6 103/ul Normal 1.2-3.8 [facility] Comment on above: Performed By: #### C BC #### [facility] [address] [place] [address] Dr. Shama Naylor Lymphocytes/100 WBC (Bld) 26.0 % Normal 20.5-60.0 [facility] Comment on above: Performed By: #### C BC #### [facility] [address] [place] [address] Dr. Shama Naylor MANUAL DIFF REQ NO Normal [facility] Comment on above: Performed By: #### C BC #### [facility] [address] [place] [address] Dr. Shama Naylor MCH (RBC) [Entitic mass] 30.8 pg Normal 25.9-34.0 [facility] Comment on above: Performed By: #### C BC #### [facility] [address] [place] [address] Dr. Shama Naylor MCHC (RBC) [Mass/Vol] 34.0 g/dL Normal 29.9-35.2 [facility] Comment on above: Performed By: #### C BC #### [facility] [address] [place] [address] Dr. Shama Naylor MCV (RBC) [Entitic vol] 90.7 fL Normal 80.0-94.0 [facility] Comment on above: Performed By: #### C BC #### [facility] [address] [place] [address] Dr. Shama Nalyor MONO # 0.4 103/ul Normal 0.3-0.8 [facility] Comment on above: Performed By: #### C BC #### [facility] [address] [place] [address] Dr. Shama Naylor Monocytes/100 WBC (Bld) 6.1 % Normal 1.7-12.0 [facility] Comment on above: Performed By: #### C BC #### [facility] [address] [address] [address] Shama Naylor NEUT # 3.9 103/ul Normal 1.4-6.5 [facility] Comment on above: Performed By: #### C BC #### [facility] [address] [address] [address] Shama Naylor Neutrophils/100 WBC (Bld) 64.8 % Normal 43.0-75.0 [facility] Comment on above: Performed By: #### C BC #### [facility] [address] [address] [address] Shama Naylor Platelet mean volume (Bld) [Entitic vol] 10.3 fL Normal 9.5-13.5 [facility] Comment on above: Performed By: #### C BC #### [facility] [address] [place] [address] Dr. Shama Naylor PLT 165 103/ul Normal 150-450 [facility] Comment on above: Performed By: #### C BC #### [facility] [address] [place] [address] Dr. Shama Naylor RBC 4.41 106/ul Critically low 4.70-6.10 [facility] Comment on above: Performed By: #### C BC #### [facility] [address] [place] [address] Dr. Shama Naylor WBC 6.0 103/ul Normal 4.0-11.0 [facility] Comment on above: Performed By: #### C BC #### [facility] [address] [place] [address] Dr. Shama Naylor LIPID PROFILEon 07-02-2022 CHOL-HDL RATIO NORM SEE BELOW Normal [facility] Comment on above: Result Comment: 3.3 - 4.4 LOW RISK 4.4 - 7.1 AVERAGE RISK 7.1 - 11.0 MODERATE RISK >11.0 HIGH RISK Performed By: #### L IPID, BMP, LIVER #### [facility] [address] [place] [address] Dr. Shama Naylor Cholesterol [Mass/Vol] 157 mg/dL Normal <=200 [facility] Comment on above: Performed By: #### L IPID, BMP, LIVER #### [facility] [address] [address] [address] Shama Naylor Cholesterol in HDL [Mass/Vol] 58 mg/dL Normal 40-60 [facility] Comment on above: Performed By: #### L IPID, BMP, LIVER #### [facility] [address] [address] [address] Shama Naylor Cholesterol in LDL [Mass/Vol] 81.8 mg/dL Normal [facility] Comment on above: Performed By: #### L IPID, BMP, LIVER #### [facility] [address] [address] [address] Shama Naylor Cholesterol.total /Cholesterol in HDL [Mass ratio] 2.7 {ratio} Normal [facility] Comment on above: Performed By: #### L IPID, BMP, LIVER #### [facility] [address] [address] [address] Shama Naylor HDL NORMAL > or = 60 mg/dl - LO W CARDIOVASCULAR RISK <40 mg/dl - HIGH CARDIOVASCULAR RISK Normal [facility] Comment on above: Performed By: #### L IPID, BMP, LIVER #### [facility] [address] [address] [address] Shama Naylor LDL CALC NORMAL SEE BELOW Normal [facility] Comment on above: Result Comment: <100 mg/dl OPTIMAL 100 - 129 mg/dl NEAR OR ABOVE OPTIMAL 130 - 159 mg/dl BORDERLINE HIGH 160 - 189 mg/dl HIGH >190 mg/dl VERY HIGH Performed By: #### L IPID, BMP, LIVER #### [facility] [address] [address] [address] Shama Naylor Triglyceride [Mass/Vol] 86 mg/dL Normal <=150 [facility] Comment on above: Performed By: #### L IPID, BMP, LIVER #### [facility] [address] [address] [address] Shama Naylor VLDL CALC 17.2 mg/dL Normal [facility] Comment on above: Performed By: #### L IPID, BMP, LIVER #### [facility] [address] [place] [address] Dr. Shama Naylor LIVER PROFILEon 07-02-2022 Albumin [Mass/Vol] 3.3 g/dL Critically low 3.4-5.0 [facility] Comment on above: Performed By: #### L IPID, BMP, LIVER #### [facility] [address] [place] [address] Dr. Shama Naylor Albumin/Globulin [Mass ratio] 1.0 {ratio} Normal [facility] Comment on above: Performed By: #### L IPID, BMP, LIVER #### [facility] [address] [place] [address] Dr. Shama Naylor ALP [Catalytic activity/Vol] 61 U/L Normal 46-116 [facility] Comment on above: Performed By: #### L IPID, BMP, LIVER #### [facility] [address] [place] [address] Dr. Shama Naylor ALT [Catalytic activity/Vol] 38 U/L Normal 16-63 [facility] Comment on above: Performed By: #### L IPID, BMP, LIVER #### [facility] [address] [place] [address] Dr. Shama Naylor AST [Catalytic activity/Vol] 14 U/L Critically low 15-37 [facility] Comment on above: Performed By: #### L IPID, BMP, LIVER #### [facility] [address] [place] [address] Dr. Shama Naylor BILI, CONJUGATED 0.1 mg/dL Normal 0.0-0.2 [facility] Comment on above: Performed By: #### L IPID, BMP, LIVER #### [facility] [address] [place] [address] Dr. Shama Naylor Bilirubin [Mass/Vol] 0.4 mg/dL Normal 0.2-1.0 [facility] Comment on above: Performed By: #### L IPID, BMP, LIVER #### [facility] [address] [place] [address] Dr. Shama Naylor Globulin (S) [Mass/Vol] 3.3 g/dL Normal [facility] Comment on above: Performed By: #### L IPID, BMP, LIVER #### [facility] [address] [place] [address] Dr. Shama Naylor Protein [Mass/Vol] 6.6 g/dL Normal 6.4-8.2 [facility] Comment on above: Performed By: #### L IPID, BMP, LIVER #### [facility] [address] [place] [address] Dr. Shama Naylor PROF CHEM 8 (BAS METB)on Anion gap [Moles/Vol] 9.6 mmol/L Normal [facility] Comment on above: Performed By: #### L IPID, BMP, LIVER #### [facility] [address] [place] [address] Dr. Shama Naylor Calcium [Mass/Vol] 8.8 mg/dL Normal 8.5-10.1 [facility] Comment on above: Performed By: #### L IPID, BMP, LIVER #### [facility] [address] [place] [address] Dr. Shama Naylor Chloride [Moles/Vol] 107 mmol/L Normal 98-107 [facility] Comment on above: Performed By: #### L IPID, BMP, LIVER #### [facility] [address] [place] [address] Dr. Shama Naylor CO2 [Moles/Vol] 28.3 mmol/L Normal 21.0-32.0 [facility] Comment on above: Performed By: #### L IPID, BMP, LIVER #### [facility] [address] [place] [address] Dr. Shama Naylor Creatinine [Mass/Vol] 1.03 mg/dL Normal 0.70-1.30 [facility] Comment on above: Performed By: #### L IPID, BMP, LIVER #### [facility] [address] [place] [address] Dr. Shama Naylor EGFR-AF [place] >60 Normal >=60 [facility] Comment on above: Performed By: #### L IPID, BMP, LIVER #### [facility] [address] [address] [address] Shama Naylor EGFR-NON AF [place] >60 Normal >=60 [facility] Comment on above: Performed By: #### L IPID, BMP, LIVER #### [facility] [address] [address] [address] Shama Naylor Glucose [Mass/Vol] 103 mg/dL Normal 74-106 [facility] Comment on above: Performed By: #### L IPID, BMP, LIVER #### [facility] [address] [address] [address] Shama Naylor Potassium [Moles/Vol] 3.9 mmol/L Normal 3.5-5.1 [facility] Comment on above: Performed By: #### L IPID, BMP, LIVER #### [facility] [address] [place] [address] Dr. Shama Naylor Sodium [Moles/Vol] 141 mmol/L Normal 136-145 [facility] Comment on above: Performed By: #### L IPID, BMP, LIVER #### [facility] [address] [address] [address] Shama Naylor Urea nitrogen [Mass/Vol] 14.0 mg/dL Normal 7.0-18.0 [facility] Comment on above: Performed By: #### L IPID, BMP, LIVER #### [facility] [address] [place] [address] Dr. Shama Naylor Urea nitrogen/Creatini ne [Mass ratio] 13.6 mg/mg Normal [facility] Comment on above: Performed By: #### L IPID, BMP, LIVER #### [facility] [address] [place] [address] Dr. Shama Naylor Office Visit (Cardiology)on 02-11-2022 Follow-up visit Diagnoses/Problems Assessed Paroxysmal SVT (supraventricular tachycardia) (427.0) (I47.1) Hypertension (401.9) (I10) HLD (hyperlipidemia) (272.4) (E78.5) Morbid obesity with BMI of 40.0-44.9, adult (278.01,V85.41) (E66.01,Z68.41) Former smoker (V15.82) (Z87.891) Quit in Orders Morbid obesity with BMI of 40.0-44.9, adult Healthy Weight Tips; Status:Complete; Done: [id number] Some eating tips that can help you lose weight.; Status:Complete; Done: [id number] Paroxysmal SVT (supraventricular tachycardia) IO EKG Electrocardiogram- 12 Lead; Status:Complete; Done: [id number] SocHx: Former smoker Tobacco Use Screening; Status:Complete; Done: [id number] Patient Instructions Please bring all medicines, vitamins, and herbal supplements with you when you come to the office. Prescriptions will not be filled unless you are compliant with your follow up appointments or have a follow up appointment scheduled as per instruction of your physician. Refills should be requested at the time of your visit. Follow up in 1 year Chief Complaint LUIS LUIS is being seen for an annual follow-up of. History of Present Illness Rare episoldes of SVT Patient returns in follow-up of problems as noted. He is doing well. Control of cardiac risk factors including hypertension and hyperlipidemia is reviewed and felt to be adequate and appropriate. He states that with the addition of propafenone he had extremely rare breakthroughs of SVT short in duration of well-tolerated because of this he wishes to continue medical therapy as is without further adjustment or other intervention. We advocated the merits of diet exercise and weight loss. Surgical History Problems History of Arm surgery History of Complete colonoscopy Current Meds Medication NameInstruction Atorvastatin Calcium 10 MG Oral TabletTAKE 1 TABLET Bedtime dilTIAZem HCl ER Coated Beads 180 MG Oral Capsule Extended Release 24 HourTAKE 1 CAPSULE BY MOUTH EVERY DAY IN THE MORNING Flomax 0.4 MG CPCRTAKE 1 CAPSULE AT BEDTIME. Propafenone HCl - 150 MG Oral TabletTAKE 1 TABLET 3 TIMES DAILY. Allergies Medication No Known Drug Allergies Recorded By: Rina Russell; 01/30/2021 12:44:49 PM Social History Problems Caffeine use (V49.89) (Z78.9) 4 8 oz cups of coffee/occasional decaf coffee Former smoker (V15.82) (Z87.891) Quit in No illicit drug use Social alcohol use (V49.89) (Z78.9) Review of Systems Constitutional: not feeling tired. Eyes: no eyesight problems. ENT: no hearing loss and no nosebleeds. Cardiovascular: no intermittent leg claudication and as noted in HPI. Respiratory: no chronic cough and no shortness of breath. Gastrointestinal: no change in bowel habits and no blood in stools. Genitourinary: no urinary frequency and no hematuria. Skin: no skin rashes. Neurological: no seizures and no frequent falls. Psychiatric: no depression and not suicidal. All other systems have been reviewed and are negative for complaint. Vitals Vital Signs Recorded: [id number] 11:05AM Heart Rate73, Apical Pedfnqds504, LUE, Sitting Clzcszmxp32, LUE, Sitting Height6 ft 2 in Rmfftj708 lb BMI Ygwhymozay43.57 kg/m2 BSA Calculated2.64 Tobacco Useb) No PHQ-2 #1. Over the last 2 weeks have you felt down, depressed or hopeless? (If yes, answer PHQ-9 below)No PHQ-2 #2. Over the last 2 weeks have you felt little interest or pleasure in doing things? (If yes, answer PHQ-9 below)No Falls Screening (Age 18+)a) No falls within the last year EKG done in office today Physical Exam Constitutional: alert and in no acute distress. Eyes: no erythema, swelling or discharge from the eye . Neck: neck is supple, symmetric, trachea midline, no masses and no thyromegaly . Pulmonary: no increased work of breathing or signs of respiratory distress and lungs clear to auscultation. Cardiovascular: carotid pulses 2+ bilaterally with no bruit , JVP was normal, no thrills , regular rhythm, normal S1 and S2, no murmurs , pedal pulses 2+ bilaterally and no edema . Abdomen: abdomen non-tender, no masses and no hepatomegaly . Skin: skin warm and dry, normal skin turgor . Psychiatric judgment and insight is normal and oriented to person, place and time . Signatures Electronically signed by : Parveen Multani MD; Feb 11 2022 5:56PM EST (Author) Normal [employer] Tobacco Screening.on Adult depression screening assessment No [facility] [address] DO Work Phone: Fall risk assessment a) No falls within the last year [facility] 250 DO Work Phone: Tobacco use status [facility] b) No [facility] 250 DO Work Phone: Falls Risk Screeningon 08-12 Fall risk assessment a) No falls within the last year [facility] 250 DO Work Phone: Office Visit (Cardiology)on 02-15-2021 Follow-up visit Diagnoses/Problems Assessed Paroxysmal SVT (supraventricular tachycardia) (427.0) (I47.1) Hypertension (401.9) (I10) HLD (hyperlipidemia) (272.4) (E78.5) Class 2 obesity with body mass index (BMI) of 39.0 to 39.9 in adult (278.00,V85.39) (E66.9,Z68.39) Former smoker (V15.82) (Z87.891) Orders Class 2 obesity with body mass index (BMI) of 39.0 to 39.9 in adult Healthy Weight Tips; Status:Complete - Retrospective Authorization; Done: [id number] SocHx: Former smoker Tobacco Use Screening; Status:Complete; Done: [id number] Unlinked Stop: Aspirin 81 MG Oral Tablet Delayed Release Patient Instructions By signing my name below, Shiloh Torres LPN, Scribe, attest that this documentation has been prepared under the direction and in the presence of Dr. Parveen Multani MD. All medical record entries made by the Kjibjaleesa were at my direction and personally dictated by me. I have reviewed the chart and agree that the record accurately reflects my personal performance of the history, physical exam, discussion and plan. Please bring all medicines, vitamins, and herbal supplements with you when you come to the office. Prescriptions will not be filled unless you are compliant with your follow up appointments or have a follow up appointment scheduled as per instruction of your physician. Refills should be requested at the time of your visit Follow up in 1 year. Chief Complaint LUIS LUIS is being seen for a 9 month follow-up of. History of Present Illness Patient returns in follow-up of problems as noted. In the interim she is done well. She had very good control of her supraventricular tachycardia no breakthroughs. She was very symptomatic when she had it before in the absence of symptoms leads me to suspect the control has been good. Treatment of other cardiac risk factors including lipids and cholesterol as well as blood pressure discussed and reviewed and treatment is adequate and appropriate. We discussed the merits of diet lifestyle modification exercise and weight loss. Current Meds Medication NameInstruction Aspirin 81 MG Oral Tablet Delayed ReleaseTAKE 1 TABLET DAILY. Atorvastatin Calcium 10 MG Oral TabletTAKE 1 TABLET BY MOUTH AT BEDTIME dilTIAZem HCl ER Beads 180 MG Oral Capsule Extended Release 24 HourTAKE 1 CAPSULE BY MOUTH DAILY IN THE MORNING Allergies Medication No Known Drug Allergies Recorded By: Rina Russell; 01/30/2021 12:44:49 PM Social History Problems Former smoker (V15.82) (Z87.891) Review of Systems Constitutional: not feeling tired. Eyes: no eyesight problems. ENT: no hearing loss and no nosebleeds. Cardiovascular: no intermittent leg claudication and as noted in HPI. Respiratory: no chronic cough and no shortness of breath. Gastrointestinal: no change in bowel habits and no blood in stools. Genitourinary: no urinary frequency and no hematuria. Skin: no skin rashes. Neurological: no seizures and no frequent falls. Psychiatric: no depression and not suicidal. All other systems have been reviewed and are negative for complaint. Vitals Vital Signs Recorded: [id number] 01:46PM Heart Rate72, R Radial Uulyapsn498, RUE, Sitting Hpi[place]26, RUE, Sitting Height6 ft 2 in Nfgwnz531 lb BMI Bxoptiefzs76.67 kg/m2 BSA Calculated2.61 Tobacco Useb) No Fall Screeninga) No falls within the last year Physical Exam Constitutional: alert and in no acute distress. Eyes: no erythema, swelling or discharge from the eye . Neck: neck is supple, symmetric, trachea midline, no masses and no thyromegaly . Pulmonary: no increased work of breathing or signs of respiratory distress and lungs clear to auscultation. Cardiovascular: carotid pulses 2+ bilaterally with no bruit , JVP was normal, no thrills , regular rhythm, normal S1 and S2, no murmurs , pedal pulses 2+ bilaterally and no edema . Abdomen: abdomen non-tender, no masses and no hepatomegaly . Skin: skin warm and dry, normal skin turgor . Psychiatric judgment and insight is normal and oriented to person, place and time . Signatures Electronically signed by : Parveen Multani MD; Feb 15 2021 5:53PM EST (Author) Normal [employer] Tobacco Screening.on 021 Fall risk assessment a) No falls within the last year -[facility] 250 DO Work Phone: Tobacco use status [facility] b) No [facility] DO Work Phone: Blood Urea Nitrogenon 2020 Urea nitrogen [Mass/Vol] 14 mg/dL Normal 9- [facility] Comment on above: Order Comment: STAT FOR MRI Performed By: #### C REBARRY BUN #### [place] [address] [place] Creatinineon 01-30-2021 Creatinine [Mass/Vol] 0.98 mg/dL Normal 0.64-1.27 [facility] Comment on above: Order Comment: STAT FOR MRI Performed By: #### C REAT BUN #### [address] Creatinine Clr Calc Pharmacy 102.93 [facility] Comment on above: Order Comment: STAT FOR MRI Result Comment: PERF ORMED BY: [place] [address] PATHOLOGIST [employer]ER NILDA PAUL M.D. Performed By: #### C REBARRY BUN #### [address] Estimated GFR ( Zulma > 60 [facility] Comment on above: Order Comment: STAT FOR MRI Result Comment: GFR estimated reference range: According to KDOQI guidelines, <60 ml/min/1.73m2 is sufficient to diagnose a patient with chronic kidney disease. Performed By: #### C REAT, BUN #### [address] Estimated GFR (Non- Am > 60 [facility] Comment on above: Order Comment: STAT FOR MRI Performed By: #### C REAT BUN #### [address] [place] [address] [facility] MR prostate wo/w conon 01-30 MR prostate wo/w con [facility] Main [place] [address] [place] [address] MRI Report Signed Patient: Luis Luis MR#: [id number] 2028 : 1950 Acct:[id number] Age/Sex: 70 / M ADM Date: 01/30/21 Loc: MR Room: Type: [facility] Attending Dr: Yin Grove MD Ordering Provider: Yin Grove MD Date of Service: 01/30/21 MR/MR prostate wo/w con: R97.20 Copies to: Yin Grove MD MRI OF THE PROSTATE GLAND WITHOUT AND WITH CONTRAST INDICATIONS: Elevated prostate specific antigen. Evaluate for prostate cancer. PSA 4.3. TECHNIQUE: MRI of the prostate gland with and without 20 ML ProHance. PI-RADS v2 Classification* PI-RADS 5 Highly Suspicious for Malignancy PI-RADS 4 Probably Malignant PI-RADS 3 Indeterminate PI-RADS 2 Probably Benign PI-RADS 1 Most Probably Benign *Based Upon ACR Guidelines March 2014. FINDINGS: Prostate Gland Size: The prostate gland measures 4.4 cm AP x 5.8 cm transverse x 5.6 cm craniocaudad consistent with a prostatic gland volume of 74.3 cc. PSA Density: 0.0578 ng/mL/cc. Central Zone: No tumor-suspicious regions are identified in the central zone. Transition Zone: There is some nodular enlargement and inhomogeneous signal intensity throughout the transition zone most commonly due to benign prostatic hyperplasia. No tumor-suspicious region is identified within the transition zone. Peripheral Zone: There is a tumor suspicious region, PI-RADS 4, involving the left peripheral zone at the apex. This measures 1.3 x 1.4 x 1.4 cm. This is centered in the 5 o'clock position. This can be seen on image 24 series 4, image 18 series 5 and image 23 series 700. This demonstrates non- circumscribed moderate T2 shortening and evidence of restricted diffusion with early contrast enhancement. Extraprostatic Extension: None. Seminal Vesicle Invasion: None. Pelvic Lymphadenopathy: None. Urinary Bladder: The urinary bladder wall is normal in thickness without evidence of a mass. Rectosigmoid Colon: There is no evidence of diverticulitis or diverticulosis. No rectosigmoid mass is identified. No rectal hemorrhoids are seen. No inguinal hernia is identified. Pelvic Osseous Structures: There is no evidence of osseous metastatic disease at the level of the prostate gland. IMPRESSION: 1. The prostate gland volume equals 74.3 cc. 2. The PSA density equals 0.0578 ng/mL/cc. 3. There is moderate nodular enlargement and inhomogeneous signal intensity throughout the transition zone most commonly due to benign prostatic hyperplasia. 4. Tumor suspicious region, PI-RADS 4, involving the left peripheral zone at the apex. This measures 1.3 x 1.4 x 1.4 cm. This is centered in the 5 o'clock position. 5. There is no evidence of extraprostatic extension of prostate cancer, seminal vesicle invasion or pelvic lymphadenopathy. Electronically signed on Jan 30, 2021 1:52:25 PM COT by: Zachery Verma MD Diplomate, [place] [employer] Report Completed: Jan 30, 2021 1:52:25 PM COT This transmission is proprietary, privileged and confidential. It is intended to be communication only for the use of the addressee; access to this message by anyone else is unauthorized. If you are not the intended recipient and have received this communication in error, please notify us immediately. Any other action taken, including but not limited to the disclosure, copying or distribution of this communication is prohibited by law. Transcribed By: 01/30/21 1358 Dictated By: NON STAFF 01/30/21 1352 Signed By: 01/30/21 1358 [facility] CARDIAC STRESS/REST INJE CTIONon 11-29-2019 [facility] CARDIAC STRESS/REST INJECTION Patient Name: LUIS LUIS STUDY: MYOCARDIAL PERFUSION STRESS TEST WITH LEXISCAN Performing facility: [facility], [address] [place] [address], [address], [place] [address] [facility] Provider: Mary Tam RN, MANAGER TESTING PCP: Dr. Julianna Brewer Supervising provider: Sunday Rai DO, [facility] INDICATION: Chest Pain; HISTORY: Gender: M; Age: 69 y/o ; Height: 187.96 cm; Weight: 036.7112468 kg. High Cholesterol; HTN; Palpitations; Chest Pain; SOB; Quit smoking 40 years ago. COMPARISON: No comparison. ACCESSION NUMBER(S): [id number]; [id number]; [id number] ORDERING CLINICIAN: MARY TAM TECHNIQUE: TWO DAY protocol. Stress injection: Date:11/29/2019, 35.8 mCi of Myoview IV 20 seconds after rapid injection of Lexiscan. Rest injection: Date: 11/30/2019, 33.0 mCi of Myoview IV at rest. The patient had a rapid injection of 0.4 mg of Lexiscan IV over 10 seconds. Imaging was performed by gated tomographic technique. Reason for Lexiscan: dizziness/unsteady/fall risk STRESS TEST DATA: Resting heart rate was 66 BPM. Resting blood pressure was 170/80 mmHg. Peak blood pressure was 124/80 mmHg. Peak heart rate was 86 BPM. TEST TERMINATED DUE TO: Protocol completed FINDINGS: STRESS TEST RESULTS: Resting electrocardiogram revealed normal sinus rhythm with nonspecific ST-T changes and occasional PAC. There were no significant ischemic ECG changes or dysrhythmias. The patient did not have chest pains/symptoms during procedure. There was a normal recovery phase. IMAGING RESULTS: Image quality was good. Rest and stress tomographic images were reviewed and revealed normal perfusion without evidence of ischemia, myocardial infarction, or left ventricular dilatation with stress. Overall left ventricular systolic function appeared to be normal without regional wall motion abnormalities. Ejection fraction was 54%. TID is 1.13 and is normal. There were no evidence of attenuation artifact. IMPRESSION: Normal Lexiscan Myoview cardiac perfusion stress test. No evidence of ischemia or myocardial infarction by perfusion imaging. Normal left ventricular systolic function, ejection fraction 54%. No previous study available for comparison. Electronically signed by: JAMIL JARRELL MD Normal [facility] Vital Signs Date Time Vital Sign Value Performing Clinician Facility 04-07-2023 13:06-0500 Body temperature 97.9 [degF] SARAVANAN High MD Work Phone: [facility] 04-07-2023 13:06-0500 Body weight 149.2 kg SARAVANAN High MD Work Phone: [facility] 04-07-2023 13:06-0500 Diastolic blood pressure 83 mm[Hg] SARAVANAN High MD Work Phone: [facility] 04-07-2023 13:06-0500 Heart rate 80 /min SARAVANAN High MD Work Phone: [facility] 04-07-2023 13:06-0500 Respiratory rate 16 /min SARAVANAN High MD Work Phone: [facility] 04-07-2023 13:06-0500 SaO2% (BldA) [Mass fraction] 96 % SARAVANAN High MD Work Phone: [facility] 04-07-2023 13:06-0500 Systolic blood pressure 139 mm[Hg] SARAVANAN High MD Work Phone: [facility] 02-10-2023 11:10-0500 Body height 188 cm Parveen Multani MD Work Phone: [facility] 02-10-2023 11:10-0500 Body mass index (BMI) [Ratio] 41.6 kg/m2 Parveen Multani MD Work Phone: [facility] 02-10-2023 11:10-0500 Body weight 146.97 kg Parveen Multani MD Work Phone: [facility] 02-10-2023 11:10-0500 Diastolic blood pressure 84 mm[Hg] Parveen Multani MD Work Phone: [facility] 02-10-2023 11:10-0500 Heart rate 67 /min Parveen Multani MD Work Phone: [facility] 02-10-2023 11:10-0500 Systolic blood pressure 132 mm[Hg] Parveen Multani MD Work Phone: [facility] 09-30-2022 13:55-0400 Body temperature 96.69 [degF] SARAVANAN High MD Work Phone: [facility] 09-30-2022 13:55-0400 Body weight 144.97 kg SARAVANAN High MD Work Phone: [facility] 09-30-2022 13:55-0400 Diastolic blood pressure 85 mm[Hg] SARAVANAN High MD Work Phone: [facility] 09-30-2022 13:55-0400 Heart rate 92 /min SARAVANAN High MD Work Phone: [facility] 09-30-2022 13:55-0400 Respiratory rate 18 /min SARAVANAN High MD Work Phone: [facility] 09-30-2022 13:55-0400 SaO2% (BldA) [Mass fraction] 94 % SARAVANAN High MD Work Phone: [facility] 09-30-2022 13:55-0400 Systolic blood pressure 143 mm[Hg] SARAVANAN High MD Work Phone: [facility] 09-08-2022 10:50-0400 Blood Pressure Location Yin GROVE [facility] 09-08-2022 10:50-0400 Diastolic blood pressure 73 mm[Hg] Yin GROVE [facility] 09-08-2022 10:50-0400 Heart rate 72 /min Yin GROVE [facility] 09-08-2022 10:50-0400 Respiratory rate 16 /min Yin GROVE [facility] 09-08-2022 10:50-0400 Systolic blood pressure 132 mm[Hg] Yin GROVE [facility] 04-01-2022 14:41-0500 Body temperature 97.2 [degF] SARAVANAN High MD Work Phone: [facility] 04-01-2022 14:41-0500 Body weight 142.79 kg SARAVANAN High MD Work Phone: [facility] 04-01-2022 14:41-0500 Diastolic blood pressure 90 mm[Hg] SARAVANAN High MD Work Phone: [facility] 04-01-2022 14:41-0500 Heart rate 82 /min SARAVANAN High MD Work Phone: [facility] 04-01-2022 14:41-0500 Respiratory rate 18 /min SARAVANAN High MD Work Phone: [facility] 04-01-2022 14:41-0500 SaO2% (BldA) [Mass fraction] 98 % SARAVANAN High MD Work Phone: [facility] 04-01-2022 14:41-0500 Systolic blood pressure 159 mm[Hg] SARAVANAN High MD Work Phone: [facility] 03-21-2022 11:25-0500 Blood Pressure Location Yin GROVE [facility] 03-21-2022 11:25-0500 Diastolic blood pressure 80 mm[Hg] Yin GROVE [facility] 03-21-2022 11:25-0500 Heart rate 76 /min Yin GROVE [facility] 03-21-2022 11:25-0500 Respiratory rate 16 /min Yin GROVE [facility] 03-21-2022 11:25-0500 Systolic blood pressure 138 mm[Hg] Yin GROVE [facility] 02-11-2022 11:05-0500 Body height 187.96 cm Kevin Brewer Work Phone: [facility] DO Work Phone: 02-11-2022 11:05-0500 Body mass index (BMI) [Ratio] 40.57 kg/m2 Kevin Lovelaceerer Work Phone: [facility] DO Work Phone: 02-11-2022 11:05-0500 Body surface area Derived from formula 2.64 m2 Kevin Lovelaceerer Work Phone: [facility] 250 DO Work Phone: 02-11-2022 11:05-0500 Body weight 143.34 kg Kevin Lovelaceerer Work Phone: [facility] 250 DO Work Phone: 02-11-2022 11:05-0500 Diastolic blood pressure 78 mm[Hg] Kevin Lovelaceerer Work Phone: [facility] 250 DO Work Phone: 02-11-2022 11:05-0500 Heart rate 73 /min Kevin Lovelaceerer Work Phone: [facility] 250 DO Work Phone: 02-11-2022 11:05-0500 Systolic blood pressure 132 mm[Hg] Kevin Lovelaceerer Work Phone: [facility] 250 DO Work Phone: 09-30-2021 10:54-0400 Blood Pressure Location Yin [facility] 09-30-2021 10:54-0400 Diastolic blood pressure 84 mm[Hg] Yin GR[facility] 09-30-2021 10:54-0400 Heart rate 75 /min Yin GROVE [facility] 09-30-2021 10:54-0400 Respiratory rate 16 /min Yin GROVE [facility] 09-30-2021 10:54-0400 Systolic blood pressure 136 mm[Hg] Yin GROVE [facility] 08-14-2021 09:47-0400 Body temperature 96.69 [degF] SARAVANAN High MD Work Phone: [facility] 08-14-2021 09:47-0400 Body weight 141.98 kg SARAVANAN High MD Work Phone: [facility] 08-14-2021 09:47-0400 Diastolic blood pressure 82 mm[Hg] SARAVANAN Hgih MD Work Phone: [facility] 08-14-2021 09:47-0400 Heart rate 82 /min SARAVANAN High MD Work Phone: [facility] 08-14-2021 09:47-0400 Respiratory rate 20 /min SARAVANAN High MD Work Phone: [facility] 08-14-2021 09:47-0400 SaO2% (BldA) [Mass fraction] 94 % SARAVANAN High MD Work Phone: [facility] 08-14-2021 09:47-0400 Systolic blood pressure 131 mm[Hg] SARAVANAN High MD Work Phone: [facility] 08-12-2021 10:15-0400 Body height 187.96 cm Kevin Brewer Work Phone: [facility] 250 DO Work Phone: 08-12-2021 10:15-0400 Body mass index (BMI) [Ratio] 39.93 kg/m2 Kevin Brewer Work Phone: [facility] DO Work Phone: 08-12-2021 10:15-0400 Body surface area Derived from formula 2.62 m2 Kevin Scott Naderer Work Phone: [facility] 250 DO Work Phone: 08-12-2021 10:15-0400 Body weight 141.07 kg Kevin Sonia Naderer Work Phone: [facility] 250 DO Work Phone: 08-12-2021 10:15-0400 Diastolic blood pressure 80 mm[Hg] Kevin Sonia Naderer Work Phone: [facility] 250 DO Work Phone: 08-12-2021 10:15-0400 Heart rate 69 /min Kevin Sonia Naderer Work Phone: [facility] DO Work Phone: 08-12-2021 10:15-0400 Systolic blood pressure 130 mm[Hg] Kevin Scott Naderer Work Phone: [facility] DO Work Phone: 08-09-2021 09:42-0400 Blood Pressure Location Yin GR[facility] 08-09-2021 09:42-0400 Diastolic blood pressure 80 mm[Hg] iYn GROVE [facility] 08-09-2021 09:42-0400 Heart rate 75 /min Yin GR[facility] 08-09-2021 09:42-0400 Respiratory rate 16 /min [facility]in [facility] 08-09-2021 09:42-0400 Systolic blood pressure 134 mm[Hg] [facility] 02-15-2021 13:46-0500 Body height 187.96 cm Kevin Scott Naderer Work Phone: [facility] 250 DO Work Phone: 02-15-2021 13:46-0500 Body mass index (BMI) [Ratio] 39.67 kg/m2 Kevin Scott Naderer Work Phone: [facility] 250 DO Work Phone: 02-15-2021 13:46-0500 Body surface area Derived from formula 2.61 m2 Kevin Scott Naderer Work Phone: [facility] 250 DO Work Phone: 02-15-2021 13:46-0500 Body weight 140.16 kg Kevin Scott Naderer Work Phone: [facility] DO Work Phone: 02-15-2021 13:46-0500 Diastolic blood pressure 80 mm[Hg] Kevin Scott Naderer Work Phone: [facility] 250 DO Work Phone: 02-15-2021 13:46-0500 Heart rate 72 /min Kevin Scott Naderer Work Phone: [facility] DO Work Phone: 02-15-2021 13:46-0500 Systolic blood pressure 118 mm[Hg] Kevin Scott Naderer Work Phone: [facility] DO Work Phone: Encounters Encounter Date Encounter Type Care Provider Facility Start: 05-13-2024 ambulatory Yin GROVE Facili ty:[facility] Start: 06-29-2023 End: 06-29-2023 ambulatory KEVIN BREWER Not Available Start: 05-11-2023 End: 05-12-2023 ambulatory Yin GROVE Facility:[facility] Start: 05-11-2023 End: 05-11-2023 Patient encounter procedure Yin GROVE [facility] Start: 04-07-2023 End: 04-07-2023 ambulatory Demond HIGH Facility:[facility] Start: 04-07-2023 End: 04-07-2023 Patient encounter procedure Demond High MD Work Phone: Radiation Oncology Comment on above: Malignant neoplasm o f prostate (HCC) (Primary Dx) Start: 02-10-2023 End: 02-10-20[facility] Start: 02-10-2023 End: 02-10-2023 Office outpatient visit 25 minutes Parveen Multani MD Work Phone: [facility] Comment on above: Paroxysmal SVT (supr aventricular tachycardia) (Primary Dx); Primary hypertension; Mixed hyperlipidemia; Morbid obesity with BMI of 40.0-44.9, adult (CMS/HCC); Bifascicular block Start: 09-30-2022 End: 09-30-2022 ambulatory KEVIN Sonia DANIELLA Facility:[facility] Start: 09-30-2022 End: 09-30-2022 Patient encounter procedure Demond High MD Work Phone: Radiation Oncology Comment on above: Malignant neoplasm o f prostate (HCC) (Primary Dx) Start: 09-08-2022 End: 09-09-2022 ambulatory Yin GROVE Facility:[facility] Start: 09-08-2022 End: 09-08-2022 Patient encounter procedure Yin GROVE [facility] Start: 07-25-2022 Rx [facility] Work [facility]: Start: 07-02-2022 End: 07-03-[address] KEVIN BREWER Facility:[facility] Start: 04-07-2022 Rx Renewal [facility] Work Phone: Start: 04-01-2022 End: 04-01-2022 ambulatory Yancy Oneill APRN.MANAGER TESTING Work Phone: Hematology/Oncology Comment on above: Prostate cancer (HCC ) Start: 04-01-2022 End: 04-01-2022 Patient encounter procedure Yancy Oneill APRN.MANAGER TESTING Work Phone: [employer] Comment on above: Malignant neoplasm o f prostate (HCC) (Primary Dx) Start: 03-21-2022 End: 03-21-2022 Patient encounter procedure Yin GROVE [facility] Start: 03-11-2022 End: 03-12-[address] KEVIN BREWER Facility:[facility] Start: 02-11-2022 ambulatory Parveen Multani II Facility: Start: 02-11-2022 Office outpatient vi sit 15 minutes [facility] Work Phone: Start: 02-05-2022 Telephone encounter G Chavez High MD Work Phone: Radiation Oncology Comment on above: Future Appointment Start: 01-14-2022 Rx Renewal [facility] Work Phone: Start: 09-30-2021 End: 09-30-2021 Patient encounter procedure Yin GROVE [facility] Start: 09-23-2021 End: 09-24-[address] KEVIN BREWER Facility: Start: 08-14-2021 End: 08-14-2021 Patient encounter procedure Demond High MD Work Phone: Radiation Oncology Comment on above: Malignant neoplasm o f prostate (HCC) (Primary Dx) Start: 08-12-2021 Patient encounter procedure Kevin Brewer Work Phone: [facility] 250 DO Work Phone: Start: 08-12-2021 ambulatory Parveen Multani II Facility: Start: 08-09-2021 End: 08-09-2021 Patient encounter procedure Yin GROVE [facility] Start: 08-05-2021 Telephone encounter G Chavez High MD Work Phone: Radiation Oncology Comment on above: FYI-No Action Needed ; Covid19 Concern Start: 07-25-2021 Patient encounter procedure Demond High MD Work Phone: [employer] Start: 07-25-2021 Radiation Oncology Note Demond High MD Work Phone: Radiation Oncology Comment on above: Simulation Note Start: 07-24-2021 [facility]ASSIE Brewer [facility] Work Phone: Start: 07-16-2021 End: 07-17-[address] KEVIN BREWER Facility: Start: 07-04-2021 End: 07-04-2021 Patient encounter procedure Abdulaziz DAWSON [facility] Start: 06-27-2021 End: 06-28-2021 Patient encounter procedure G Chavez High MD Work Phone: Radiation Oncology Comment on above: Malignant neoplasm o f prostate (HCC) (Primary Dx) Start: 06-11-2021 End: 06-11-2021 Patient encounter procedure G Chavez High MD Work Phone: Radiation Oncology Comment on above: Malignant neoplasm o f prostate (HCC) (Primary Dx) Start: 06-11-2021 Radiation Oncology Note G Kedar High MD Work Phone: Radiation Oncology Comment on above: Simulation Note Start: 04-26-2021 Rx Renewal Kevin A Gunjanr Work Phone: [facility] 250 DO Work Phone: Start: 02-15-2021 ambulatory Parveen Multani II Facility: Start: 02-15-2021 Office outpatient vi sit 15 minutes Kevin Hollinsr Work Phone: [facility] 250 DO Work Phone: Start: 01-22-2021 Rx Renewal Kevin A Gunjanr Work Phone: [facility] [employer] 250 DO Work Phone: Procedures Date Procedure Procedure Detail Performing Clinician Start: 03-31-2023 PSA screening [facility] Provi kilo Start: 02-10-2023 ECG 12-LEAD PARVEEN PATEL Start: 02-10-2023 Ecg routine ecg w/le ast 12 lds w/i&r Parveen Multani MD Work Phone: Start: 08-29-2022 PSA screening [facility] Provi kilo Start: 03-11-2022 End: 03-11-2022 PSA screening [facility] Provider Comment on above: Performed By: #### P SAD #### [facility] [address] [place] [address] Dr. Shama Naylor Start: 09-23-[address] KEVIN BROOKS Comment on above: Performed By: #### P SAD #### [facility] [address] [address] [address] Shama Naylor Start: 07-16-2021 End: 07-16-2021 PSA screening [facility] Provider Comment on above: Performed By: #### P SAD #### [facility] [address] [place] [address] Dr. Shama Naylor Start: 06-27-2021 Brachytherapy Yin GRULLON Start: 03-14-2021 Transrectal biopsy o f prostate Abdulaziz DAWSON Arthroplasty of wrist Abdulaziz RICE Colonoscopy Abdulaziz RICE Surgical repair of u pper extremity Kevin A Naderer Work Phone: Total colonoscopy Kevin A Nad erer Work Phone: Plan of Treatment Date Care Activity Detail Author Start: 03-08-2024 End: 03-08-2024 Patient encounter procedure 03/08/2024 9:00 AM EST Office Visit [facility] [address] [facility] [address] [place] [address] Parveen Multani MD [address] [facility] [address] [place] [address] [facility] Start: 04-07-2023 End: 07-07-2023 Prostate specific Ag [Mass/volume] in Serum or Plasma PSA/PROSTSPECAG DIAG Lab Routine Malignant neoplasm of prostate (HCC) Expected: 04/07/2023, Expires: 07/07/2023 [facility] Work Phone: Comment on above: Expected: 04/07/2023 , Expires: 07/07/2023 Start: 04-02-2023 End: 06-02-2023 Prostate specific Ag [Mass/volume] in Serum or Plasma PSA/PROSTSPECAG DIAG Lab Routine Malignant neoplasm of prostate (HCC) Expected: 04/02/2023 (Approximate), Expires: 06/02/2023 [facility] Work Phone: Comment on above: Expected: 04/02/2023 (Approximate), Expires: 06/02/2023 Start: 03-02-2023 Advance Directive Discussion Advance Directive Discussion [facility] Start: 03-02-2023 Depression Assessment Depression Ass [facility] Start: 02-10-2023 FUV, Provider: Parveen Multani, Status: Pen, Time: 11:00 AM FUV, Provider: Parveen Multani, Status: Pen, Time: 11:00 AM -[facility] [employer] 250 DO Work Phone: Start: 10-31-2022 Covid-19 Vaccine () Covid-19 Vaccine () [facility] Start: 10-31-2022 Influenza vaccination [facility] Start: 03-02-2022 ADVANCE DIRECTIVE DISCUSSION ADVANCE DIRECTIVE DISCUSSION [facility] Start: 03-02-2022 DEPRESSION ASSESSMENT DEPRESSION ASS [facility] Start: 02-11-2022 FUV, Provider: Parveen Multani, Status: Pen, Time: 10:50 AM FUV, Provider: Parveen Multani, Status: Pen, Time: 10:50 AM [facility] [employer] 250 DO Work Phone: Start: 10-31-2021 Influenza vaccination [facility] Start: 04-15-2021 COVID-19 VACCINE (4 - Booster for Pfizer series) COVID-19 VACCINE (4 - Booster for Pfizer series) [facility] Start: 03-02-2021 ADVANCE DIRECTIVE DISCUSSION ADVANCE DIRECTIVE DISCUSSION [facility] Start: 03-02-2021 [facility] Start: 02-15-2021 FUV, Provider: Parveen Multani, Status: Pen, Time: 1:30 PM FUV, Provider: Parveen Multani, Status: Pen, Time: 1:30 PM [facility] [employer] 250 DO Work Phone: Start: 02-07-2021 COVID-19 VACCINE (4 - Booster for Pfizer series) COVID-19 VACCINE (4 - Booster for Pfizer series) [facility] Start: 02-07-2021 COVID-19 VACCINE (4 - Pfizer series) COVID-19 VACCINE (4 - Pfizer series) [facility] Start: 07-02-2015 Abdominal aortic aneurysm screening Abdominal Aortic Aneurysm (AAA) Screening [facility] Start: 07-02-2015 Pneumococcal Vaccine : 65+ (1 of 1 - PCV) Pneumococcal Vaccine: 65+ (1 of 1 - PCV) [facility] Start: 07-02-2015 Pneumococcal Vaccine : 65+ Years (1 - PCV) Pneumococcal Vaccine: 65+ Years (1 - PCV) [facility] Start: 07-02-2015 PNEUMOCOCCAL: 65+ (1 - PCV) PNEUMOCOCCAL: 65+ (1 - PCV) [facility] Start: 07-02-2015 PNEUMOVAX AGE 65 AND OVER WITH 5YR LOOKBACK (#1) PNEUMOVAX AGE 65 AND OVER WITH 5YR LOOKBACK (#1) [facility] Start: 2010 RSV Vaccine (1 - 1-d ose 60+ series) RSV Vaccine (1 - 1-dose 60+ series) [facility] Start: 2000 SHINGRIX VACCINE (1 of 2) SHINGRIX VACCINE (1 of 2) [facility] Start: 2000 Zoster Vaccines (1 of 2) Zoste r Vaccines (1 of 2) [facility] Start: 07-02-1995 COLOGUARD (FIT-DNA) COLOGUARD (FIT-D NA) [facility] Start: 07-02-1995 Colonoscopy COLONOSCOPY [facility] Start: 07-02-1995 COLORECTAL CANCER SCREENING COLORECTAL CANCER SCREENING [facility] Start: 07-02-[address] COLONOGRAPHY [facility] Start: 07-02-1995 DIABET[facility]EN [facility] Start: 07-02-1995 Diabetes Screening Diabetes Screenin g [facility] Start: 07-02-1995 FECAL OCCULT BLOOD FECAL OCCULT BLOO D [facility] Start: 07-02-1995 Screening for malign ant neoplasm of colon [facility] Start: 07-02-1995 SIGMOIDOSCOPY [facility] Start: 1985 Lipid panel Lipid Screening [facility] Start: 1985 LIPID SCREEN LIPID SCREEN [facility] Start: 1972 DTaP/Tdap/Td Vaccine s (1 - Tdap) DTaP/Tdap/Td Vaccines (1 - Tdap) [facility] Start: 1969 SHINGRIX VACCINE (1 of 2) SHINGRIX VACCINE (1 of 2) [facility] Start: 1969 Urine microalbumin profile [facility] Start: 1968 Diabetes mellitus screening Diabetes Screening [facility] Start: 1968 HEPATITIS C SCREENING HEPATITIS C [facility] Start: 1968 Hepatitis C screening Hepatitis C [facility] Start: 1962 Adult depression screening assessment DEPRESSION SCREENING [facility] Start: 1956 PNEUMOCOCCAL: 65+ (1 - PCV) PNEUMOCOCCAL: 65+ (1 - PCV) [facility] Start: 1950 ABDOMINAL AORTIC ANEURYSM SCREENING ABDOMINAL AORTIC ANEURYSM SCREENING [facility] Start: 1950 Abdominal aortic aneurysm screening Abdominal Aortic Aneurysm Screening [facility] Start: 1950 Lipid panel Lipid Panel [facility] Start: 1950 Medicare Annual Well ness Visit Medicare Annual Wellness Visit (AWV) [facility] Start: 1950 Screening for malign ant neoplasm of [facility] Immunizations Immunization Date Immunization Notes Care Provider Concha lopez 11-28-2021 Fluzone High-Dose Quadrivalent 0.7 ML Intramuscular Suspension Prefilled Syringe Kevin Brewer Work Phone: [facility] 250 DO Work Phone: 11-28-2021 influenza virus vaccine, unspecified formulation Yin GROVE [facility] 11-28-2021 influenza, high dose seasonal, preservative-free Parveen Multani MD Work Phone: [facility] Work Phone: 12-13-2020 [employer] COVID-19 Vacc 30 MCG/0.3ML Intramuscular Suspension Kevin Hollinsr Work Phone: [facility] 05-19-2020 Pfizer-BioNTech COVID-19 Vacc 30 MCG/0.3ML Intramuscular Suspension Kevin A Naderer Work Phone: [facility] 04-28-2020 Pfizer-BioNTech COVID-19 Vacc 30 MCG/0.3ML Intramuscular Suspension Kevin A Naderer Work Phone: [facility] 03-02-2020 SARS-CoV-2 (COVID-19 ) mRNA BNT-162b2 vax Abdulaziz DAWSON [facility] Comment on above: Result Comment: pt i s fully vaccinated and has received the booster but does not remember the dates 12-14-2019 influenza virus vaccine, unspecified formulation Yin GROVE [facility] 12-14-2019 influenza, injectabl e, quadrivalent, preservative free Kevin A [facility] Work Phone: 12-01-2019 influenza virus vaccine, unspecified formulation Yin GROVE [facility] 12-01-2019 influenza, seasonal, injectable Kevin A Naderer Work Phone: [facility] 250 DO Work Phone: 02-09-2012 influenza virus vaccine, unspecified formulation Yin GROVE [facility] 02-09-2012 influenza, seasonal, injectable Kevin A [facility]aderer [facility]: [facility] Work Phone: Payers Date Payer Category Payer Private Health Insurance [employer] A ETNA MEDICARE SUPPLEMENT [id number] 2020-Present [phone] [address] [address] [place] [address] Indemnity [id number] 2020 Private Health Insurance [id number] 2015 Medicare MEDICARE MEDICAR E A AND B [id number] 2015-Present [phone] [place] [address] Medicare [id number] 2015 Medicare [id number] 1959 Medicare [id number] 1959 Private Health Insurance [facility] [id number] 1950 Unknown [id number] [id number] 1950 Unknown [id number] [id number] 1950 Unknown [id number]. [id number] 1950 Unknown [id number]. [id number] 1950 Unknown [id number]. 2.593 1950 Unknown [id number]. 2.593 1950 Unknown [id number]. 2.593 1950 Unknown [id number] [id number] 1950 Unknown [id number] [id number] 1950 Unknown [id number] [id number] 1950 Unknown [id number]. 2.727 1950 Unknown [id number] [id number] Unknown Social History Date Type Detail Facility Start: 05-20-2021 End: 09-30-2022 Alcohol use Alcohol use [facility] Comment on above: 4 8 oz cups of coffe e/occasional decaf coffee; Quit in 1970s; Start: 04-03-2021 End: 04-07-2023 Tobacco smoking status NHIS Ex-smoker [facility] End: 04-03-1981 History of tobacco use Current smoker [facility] End: 04-03-1981 History of tobacco use Pipe Smoker [facility] End: 04-03-1981 History of tobacco use Cigar Smoker [facility] Start: 04-03-2021 End: 04-07-2023 Tobacco use and exposure Smokeless tobacco non-user [facility] Start: 05-20-2021 End: 04-07-2023 Alcohol intake Current drinker of alcohol (finding) [facility] Start: 04-03-2021 History SDOH Alcohol Comment 2-3 times/wk [facility] Start: 1950 Sex Assigned At Not on file [facility] Start: 06-01-2021 End: 02-10-2023 Exposure to SARS-CoV-2 (event) Not sure [facility] Start: 05-20-2021 End: 09-30-2022 Sex Assigned At Male [facility] Pender Tobacco smoking status No Smokin g Status Entered [facility] Start: 03-21-2022 Tobacco smoking status Never s moked tobacco (finding) [facility] Start: 05-11-2023 Tobacco smoking status Never [facility] End: 03-02-1969 History of tobacco use Cigarette Smoker [facility] Work Phone: Start: 02-06-2023 Alcohol Comment [facility] Work Phone: Functional Status Date Assessment Result Facility 05-11-2023 Functional Status N/A [facility] 09-08-2022 Functional Status N/A [facility] 03-21-2022 Functional Status N/A [facility] 09-30-2021 Functional Status N/A [facility] Clinical Notes 06-11-2021 to 05-11-2023 Kelly Guo LPN - 04/07/2023 1:09 PM Demond Anthony MD - 04/07/2023 1:05 PM Montez Multani MD - 02/10/2023 11:00 AM Naida Quiles RN - 09/30/2022 1:59 PM EDT Note Date & Type Note Facility 05-11-2023 Hospital Discharge instructions Patient Education 05/11/2023 10:31:53 Prostate Cancer Screening Prostate Cancer Screening Prostate cancer screening is testing that is done to check for the presence of prostate cancer in men. The prostate gland is a walnut-sized gland that is located below the bladder and in front of the rectum in males. The function of the prostate is to add fluid to semen during ejaculation. Prostate cancer is one of the most common types of cancer in men. Who should have prostate cancer screening? Screening recommendations vary based on age and other risk factors, as well as between the professional organizations who make the recommendations. In general, screening is recommended if: You are age 50 to 70 and have an average risk for prostate cancer. You should talk with your health care provider about your need for screening and how often screening should be done. Because most prostate cancers are slow growing and will not cause , screening in this age group is generally reserved for men who have a 10- to 15-year life expectancy. You are younger than age 50, and you have these risk factors: ?Having a father, brother, or uncle who has been diagnosed with prostate cancer. The risk is higher if your family member's cancer occurred at an early age or if you have multiple family members with prostate cancer at an early age. ?Being a male who is Black or is of [place] or sub-Saharan descent. In general, screening is not recommended if: You are younger than age 40. You are between the ages of 40 and 49 and you have no risk factors. You are 70 years of age or older. At this age, the risks that screening can cause are greater than the benefits that it may provide. If you are at high risk for prostate cancer, your health care provider may recommend that you have screenings more often or that you start screening at a younger age. How is screening for prostate cancer done? The recommended prostate cancer screening test is a blood test called the prostate-specific antigen (PSA) test. PSA is a protein that is made in the prostate. As you age, your prostate naturally produces more PSA. Abnormally high PSA levels may be caused by: Prostate cancer. An enlarged prostate that is not caused by cancer (benign prostatic hyperplasia, or BPH). This condition is very common in older men. A prostate gland infection (prostatitis) or urinary tract infection. Certain medicines such as male hormones (like testosterone) or other medicines that raise testosterone levels. A rectal exam may be done as part of prostate cancer screening to help provide information about the size of your prostate gland. When a rectal exam is performed, it should be done after the PSA level is drawn to avoid any effect on the results. Depending on the PSA results, you may need more tests, such as: A physical exam to check the size of your prostate gland, if not done as part of screening. Blood and imaging tests. A procedure to remove tissue samples from your prostate gland for testing (biopsy). This is the only way to know for certain if you have prostate cancer. What are the benefits of prostate cancer screening? Screening can help to identify cancer at an early stage, before symptoms start and when the cancer can be treated more easily. There is a small chance that screening may lower your risk of dying from prostate cancer. The chance is small because prostate cancer is a slow-growing cancer, and most men with prostate cancer from a different cause. What are the risks of prostate cancer screening? The main risk of prostate cancer screening is diagnosing and treating prostate cancer that would never have caused any symptoms or problems. This is called overdiagnosisand overtreatment. PSA screening cannot tell you if your PSA is high due to cancer or a different cause. A prostate biopsy is the only procedure to diagnose prostate cancer. Even the results of a biopsy may not tell you if your cancer needs to be treated. Slow-growing prostate cancer may not need any treatment other than monitoring, so diagnosing and treating it may cause unnecessary stress or other side effects. Questions to ask your health care provider When should I start prostate cancer screening? What is my risk for prostate cancer? How often do I need screening? What type of screening tests do I need? How do I get my test results? What do my results mean? Do I need treatment? Where to find more information The [place] [employer]: www.cancer.org [employer] [employer]: www.auanet.org Contact a health care provider if: You have difficulty urinating. You have pain when you urinate or ejaculate. You have blood in your urine or semen. You have pain in your back or in the area of your prostate. Summary Prostate cancer is a common type of cancer in men. The prostate gland is located below the bladder and in front of the rectum. This gland adds fluid to semen during ejaculation. Prostate cancer screening may identify cancer at an early stage, when the cancer can be treated more easily and is less likely to have spread to other areas of the body. The prostate-specific antigen (PSA) test is the recommended screening test for prostate cancer, but it has associated risks. Discuss the risks and benefits of prostate cancer screening with your health care provider. If you are age 70 or older, the risks that screening can cause are greater than the benefits that it may provide. This information is not intended to replace advice given to you by your health care provider. Make sure you discuss any questions you have with your health care provider. Document Revised: 08/12/2021 Document Reviewed: 08/12/2021 [employer] Patient Education 2022 [employer]. Follow Up Care 09/08/2022 12:26:22 With:CARINE DELGADO, Yin Patel, URL Address: [facility] [address] , [place] [address]- [phone] When: Unknown Comments:PSA in 6 mos and f/u in 1 yr w/ repeat PSA [facility] Yang 04-07-2023 Note HNO ID: [id number] Author: Demond HIGH MD Service: ? Author Type: Physician Type: Progress Notes Filed: 04/15/2023 15:32 Note Text: Radiation Oncology - Follow Up Note PATIENT NAME: Luis Luis PATIENT DIAGNOSIS: Prostate adenocarcinoma, initial PSA 4.3, biopsy Cy score 3 + 4 = 7 (grade group 2), clinical stage T2a, N0, M0, stage IIB [T1-T2, N0, M0, PSA <20, GG 2] (AJCC 8th ed.), s/p TRUS Random and MRI fusion biopsy. RADIATION SUMMARY: DATES OF TREATMENT: Pelvic external beam 04/17/2021- 05/22/2021 Prostate brachytherapy: 06/27/2021 DELIVERED DOSE: Pelvis/ Prostate 45 Gy in 25 fractions Prostate brachytherapy 100 Robles, medium 103 sources, 107.14 mCi INTERVAL HISTORY: Doing well. Denies any problems or concerns. PSA HISTORY: PSA. (no units) Date Value 03/31/2023 <0.13 08/29/2022 <0.13 03/11/2022 <0.13 07/16/2021 0.20 ALLERGIES No Known Allergies naproxen sodium (ALEVE) 220 mg cap Take by mouth. URO-MP 118-10-40.8-36 mg Take 1 capsule by mouth twice daily. propafenone (RYTHMOL) 150 mg tablet Take 150 mg by mouth three times daily. tamsulosin (FLOMAX) 0.4 mg Take 0.4 mg by mouth once daily. acetaminophen/diphenhydramine (TYLENOL PM EXTRA STRENGTH ORAL) Take by mouth. acetaminophen (TYLENOL) 325 mg tablet Take by mouth. atorvastatin (LIPITOR) 10 mg tablet Take 10 mg by mouth. dilTIAZem LA (CARDIZEM LA) 240 mg 24 hr tablet Take 240 mg by mouth. REVIEW OF SYSTEMS: D/N = 4-6/0-1 Hematuria: No Dysuria: No Incontinence: No. Occasional no pad Urgency: Mild Catheter use: No Medications to aid urination: Patient restarted Flomax on his own without hypotensive event or tachycardia portable - Total AUA Score: 12 Bowel movement frequency: 1/day Bowel movement quality: normal Blood per rectum: none Androgen deprivation: Lupron, was discontinued PHYSICAL EXAM: There were no vitals taken for this visit. KPS: 100 General Appearance: Alert and oriented. No acute distress. Rectal exam is deferred. ASSESSMENT/PLAN: Prostate adenocarcinoma, initial PSA 4.3, biopsy Cy score 3 + 4 = 7 (grade group 2), clinical stage T2a, N0, M0, stage IIB [T1-T2, N0, M0, PSA <20, GG 2] (AJCC 8th ed.), s/p TRUS Random and MRI fusion biopsy. PSA remains undetectable. No postradiation related issues. Plan see patient back in one year for further postradiation follow-up. Signed by: Demond High MD cc: Kevin Brewer MD ([facility]) [address] [place] [address] Portions of the above note extracted and edited from previous visit as well as active information included in the EMR. [facility] 04-07-2023 Nurse Note AUA=12 documented in this encounter [facility] 04-07-2023 History of Present illness Narrative Radiation Oncology - Follow Up Note PATIENT NAME: Luis Luis PATIENT DIAGNOSIS: Prostate adenocarcinoma, initial PSA 4.3, biopsy [place] score 3 + 4 = 7 (grade group 2), clinical stage T2a, N0, M0, stage IIB [T1-T2, N0, M0, PSA <20, GG 2] (AJCC 8th ed.), s/p TRUS Random and MRI fusion biopsy. RADIATION SUMMARY: DATES OF TREATMENT: Pelvic external beam 04/17/2021- 05/22/2021 Prostate brachytherapy: 06/27/2021 DELIVERED DOSE: Pelvis/ Prostate 45 Gy in 25 fractions Prostate brachytherapy 100 Robles, medium 103 sources, 107.14 mCi INTERVAL HISTORY: Doing well. Denies any problems or concerns. PSA HISTORY: PSA. (no units) Date Value 03/31/2023 <0.13 08/29/2022 <0.13 03/11/2022 <0.13 07/16/2021 0.20 ALLERGIES No Known Allergies naproxen sodium (ALEVE) 220 mg cap Take by mouth. URO-MP 118-10-40.8-36 mg Take 1 capsule by mouth twice daily. propafenone (RYTHMOL) 150 mg tablet Take 150 mg by mouth three times daily. tamsulosin (FLOMAX) 0.4 mg Take 0.4 mg by mouth once daily. acetaminophen/diphenhydramine (TYLENOL PM EXTRA STRENGTH ORAL) Take by mouth. acetaminophen (TYLENOL) 325 mg tablet Take by mouth. atorvastatin (LIPITOR) 10 mg tablet Take 10 mg by mouth. dilTIAZem LA (CARDIZEM LA) 240 mg 24 hr tablet Take 240 mg by mouth. REVIEW OF SYSTEMS: D/N = 4-6/0-1 Hematuria: No Dysuria: No Incontinence: No. Occasional no pad Urgency: Mild Catheter use: No Medications to aid urination: Patient restarted Flomax on his own without hypotensive event or tachycardia portable - Total AUA Score: 12 Bowel movement frequency: 1/day Bowel movement quality: normal Blood per rectum: none Androgen deprivation: Lupron, was discontinued PHYSICAL EXAM: There were no vitals taken for this visit. KPS: 100 General Appearance: Alert and oriented. No acute distress. Rectal exam is deferred. ASSESSMENT/PLAN: Prostate adenocarcinoma, initial PSA 4.3, biopsy Cy score 3 + 4 = 7 (grade group 2), clinical stage T2a, N0, M0, stage IIB [T1-T2, N0, M0, PSA <20, GG 2] (AJCC 8th ed.), s/p TRUS Random and MRI fusion biopsy. PSA remains undetectable. No postradiation related issues. Plan see patient back in one year for further postradiation follow-up. Signed by: Demond High MD cc: Kevin Brewer MD (Dr) [address] [place] [address] Portions of the above note extracted and edited from previous visit as well as active information included in the EMR. documented in this encounter [facility] 02-10-2023 History of Present illness Narrative Subjective Lusi Luis is a 72 y.o. male Chief Complaint Annual Exam HPI Patient returns in follow-up of paroxysmal SVT. He believes propafenone therapy has done an excellent job of preventing breakthroughs of SVT and he wishes to continue. We discussed the concept of ablation. I note that he has bifascicular heart block and I believe this puts him at increased risk for unintended complete heart block if in fact an attempt was made at performing an atrioventricular marcia modification. Because of this I believe continued pharmacologic therapy to be an appropriate and potentially safer approach than ablation. He concurs particularly in light of the fact has had excellent control His other issues which include blood pressure and hyperlipidemia appear to be well-controlled and managed and he is asymptomatic on current therapy and is pleased. Because of all the above we suggest continued therapy as before without change. Review of Systems All other systems reviewed and are negative. Visit Vitals BP 132/84 (BP Location: Left arm, Patient Position: Sitting) Pulse 67 Ht 1.88 m (6' 2 ) Wt 147 kg (324 lb) BMI 41.60 kg/m Smoking Status Former BSA 2.77 m Objective Physical Exam Constitutional: Appearance: Normal appearance. He is normal weight. HENT: Nose: Nose normal. Neck: Vascular: No carotid bruit. Cardiovascular: Rate and Rhythm: Normal rate. Pulses: Normal pulses. Heart sounds: Normal heart sounds. Pulmonary: Effort: Pulmonary effort is normal. Abdominal: General: Bowel sounds are normal. Palpations: Abdomen is soft. Genitourinary: Rectum: Normal. Musculoskeletal: General: Normal range of motion. Cervical back: Normal range of motion. Right lower leg: No edema. Left lower leg: No edema. Skin: General: Skin is warm and dry. Neurological: General: No focal deficit present. Mental Status: He is alert. Psychiatric: Mood and Affect: Mood normal. Behavior: Behavior normal. Thought Content: Thought content normal. Judgment: Judgment normal. Current Medications Current Outpatient Medications: atorvastatin (Lipitor) 10 mg tablet, Take 1 tablet (10 mg) by mouth once daily at bedtime., Disp: , Rfl: dilTIAZem CD (Cardizem CD) 180 mg 24 hr capsule, TAKE 1 CAPSULE BY MOUTH EVERY DAY IN THE MORNING, Disp: 90 capsule, Rfl: 3 propafenone (Rythmol) 150 mg tablet, Take 1 tablet (150 mg) by mouth 3 times a day., Disp: , Rfl: tamsulosin (Flomax) 0.4 mg 24 hr capsule, Take 1 capsule (0.4 mg) by mouth once daily., Disp: , Rfl: Assessment/Plan 1. Paroxysmal SVT (supraventricular tachycardia) Excellent control on propafenone therapy. Continue same. 2. Primary hypertension Good control on current therapy. Continue same. 3. Mixed hyperlipidemia Excellent control on current therapy. Continue same 4. Morbid obesity with BMI of 40.0-44.9, adult (CMS/HCC) The merits of diet and weight loss were advocated. 5. Bifascicular block This puts him at increased risk for complete heart block if he were to undergo AV node modification and hence we recommend continued pharmacologic therapy as opposed to interventional cardiac electrophysiologic approach. EKG done in office today documented in this encounter [facility] Work Phone: 02-10-2023 Instructions Felix Caal MA - 02/10/2023 11:00 AM EST Please bring all medicines, vitamins, and herbal supplements with you when you come to the office. Prescriptions will not be filled unless you are compliant with your follow up appointments or have a follow up appointment scheduled as per instruction of your physician. Refills should be requested at the time of your visit. documented in this encounter [facility] Work Phone: 09-30-2022 Note HNO ID: [id number] Author: Demond High MD Service: ? Author Type: Physician Type: Progress Notes Filed: 10/03/2022 8:14 AM Note Text: Radiation Oncology - Follow Up Note PATIENT NAME: Luis Luis PATIENT DIAGNOSIS: Prostate adenocarcinoma, initial PSA 4.3, biopsy Cy score 3 + 4 = 7 (grade group 2), clinical stage T2a, N0, M0, stage IIB [T1-T2, N0, M0, PSA <20, GG 2] (AJCC 8th ed.), s/p TRUS Random and MRI fusion biopsy. RADIATION SUMMARY: DATES OF TREATMENT: Pelvic external beam 04/17/2021- 05/22/2021 Prostate brachytherapy: 06/27/2021 DELIVERED DOSE: Pelvis/ Prostate 45 Gy in 25 fractions Prostate brachytherapy 100 Robles, medium 103 sources, 107.14 mCi INTERVAL HISTORY: Doing well. Denies any problems or concerns. PSA HISTORY: PSA. (no units) Date Value 08/29/2022 <0.13 03/11/2022 <0.13 07/16/2021 0.20 ALLERGIES No Known Allergies naproxen sodium (ALEVE) 220 mg cap Take by mouth. propafenone (RYTHMOL) 150 mg tablet Take 150 mg by mouth three times daily. tamsulosin (FLOMAX) 0.4 mg Take 0.4 mg by mouth once daily. acetaminophen/diphenhydramine (TYLENOL PM EXTRA STRENGTH ORAL) Take by mouth. acetaminophen (TYLENOL) 325 mg tablet Take by mouth. atorvastatin (LIPITOR) 10 mg tablet Take 10 mg by mouth. dilTIAZem LA (CARDIZEM LA) 240 mg 24 hr tablet Take 240 mg by mouth. URO-MP 118-10-40.8-36 mg Take 1 capsule by mouth twice daily. REVIEW OF SYSTEMS: D/N = 4-6/0-1 Hematuria: No Dysuria: No Incontinence: No. Occasional no pad Urgency: Mild Catheter use: No Medications to aid urination: Patient restarted Flomax on his own without hypotensive event or tachycardia portable - Total AUA Score: 14 Bowel movement frequency: 1/day Bowel movement quality: normal Blood per rectum: none Androgen deprivation: Lupron, was discontinued PHYSICAL EXAM: BP 143/85 Pulse 92 Temp (!) 35.9 ?C (96.7 ?F) Resp 18 Wt (!) 145 kg (319 lb 9.6 oz) SpO2 94% KPS: 100 General Appearance: Alert and oriented. No acute distress. Rectal exam is deferred. ASSESSMENT/PLAN: Prostate adenocarcinoma, initial PSA 4.3, biopsy Cy score 3 + 4 = 7 (grade group 2), clinical stage T2a, N0, M0, stage IIB [T1-T2, N0, M0, PSA <20, GG 2] (AJCC 8th ed.), s/p TRUS Random and MRI fusion biopsy. PSA remains undetectable. No postradiation related issues. Plan see patient back in 6 months for further postradiation follow-up. Signed by: Demond High MD cc: Kevin Brewer MD ([facility]) [address] [place] [address] Portions of the above note extracted and edited from previous visit as well as active information included in the EMR. [facility] 09-30-2022 History of Present illness Narrative Radiation Oncology - Follow Up Note PATIENT NAME: Luis Luis PATIENT DIAGNOSIS: Prostate adenocarcinoma, initial PSA 4.3, biopsy Cy score 3 + 4 = 7 (grade group 2), clinical stage T2a, N0, M0, stage IIB [T1-T2, N0, M0, PSA <20, GG 2] (AJCC 8th ed.), s/p TRUS Random and MRI fusion biopsy. RADIATION SUMMARY: DATES OF TREATMENT: Pelvic external beam 04/17/2021- 05/22/2021 Prostate brachytherapy: 06/27/2021 DELIVERED DOSE: Pelvis/ Prostate 45 Gy in 25 fractions Prostate brachytherapy 100 Robles, medium 103 sources, 107.14 mCi INTERVAL HISTORY: Doing well. Denies any problems or concerns. PSA HISTORY: PSA. (no units) Date Value 08/29/2022 <0.13 03/11/2022 <0.13 07/16/2021 0.20 ALLERGIES No Known Allergies naproxen sodium (ALEVE) 220 mg cap Take by mouth. propafenone (RYTHMOL) 150 mg tablet Take 150 mg by mouth three times daily. tamsulosin (FLOMAX) 0.4 mg Take 0.4 mg by mouth once daily. acetaminophen/diphenhydramine (TYLENOL PM EXTRA STRENGTH ORAL) Take by mouth. acetaminophen (TYLENOL) 325 mg tablet Take by mouth. atorvastatin (LIPITOR) 10 mg tablet Take 10 mg by mouth. dilTIAZem LA (CARDIZEM LA) 240 mg 24 hr tablet Take 240 mg by mouth. URO-MP 118-10-40.8-36 mg Take 1 capsule by mouth twice daily. REVIEW OF SYSTEMS: D/N = 4-6/0-1 Hematuria: No Dysuria: No Incontinence: No. Occasional no pad Urgency: Mild Catheter use: No Medications to aid urination: Patient restarted Flomax on his own without hypotensive event or tachycardia portable - Total AUA Score: 14 Bowel movement frequency: 1/day Bowel movement quality: normal Blood per rectum: none Androgen deprivation: Lupron, was discontinued PHYSICAL EXAM: BP 143/85 Pulse 92 Temp (!) 35.9 C (96.7 F) Resp 18 Wt (!) 145 kg (319 lb 9.6 oz) SpO2 94% KPS: 100 General Appearance: Alert and oriented. No acute distress. Rectal exam is deferred. ASSESSMENT/PLAN: Prostate adenocarcinoma, initial PSA 4.3, biopsy [place] score 3 + 4 = 7 (grade group 2), clinical stage T2a, N0, M0, stage IIB [T1-T2, N0, M0, PSA <20, GG 2] (AJCC 8th ed.), s/p TRUS Random and MRI fusion biopsy. PSA remains undetectable. No postradiation related issues. Plan see patient back in 6 months for further postradiation follow-up. Signed by: Demond High MD cc: Kevin Brewer MD ([facility]) [address] [place] [id number] Portions of the above note extracted and edited from previous visit as well as active information included in the EMR. documented in this encounter [facility] 09-30-2022 Nurse Note AUA 14 Naida Jacobo RN documented in this encounter [facility] 09-08-2022 Hospital Discharge instructions Patient Education 09/08/2022 12:19:49 Benign Prostatic Hyperplasia Benign Prostatic Hyperplasia Benign prostatic hyperplasia (BPH) is an enlarged prostate gland that is caused by the normal aging process. The prostate may get bigger as a man gets older. The condition is not caused by cancer. The prostate is a walnut-sized gland that is involved in the production of semen. It is located in front of the rectum and below the bladder. The bladder stores urine. The urethra carries stored urine out of the body. An enlarged prostate can press on the urethra. This can make it harder to pass urine. The buildup of urine in the bladder can cause infection. Back pressure and infection may progress to bladder damage and kidney (renal) failure. What are the causes? This condition is part of the normal aging process. However, not all men develop problems from this condition. If the prostate enlarges away from the urethra, urine flow will not be blocked. If it enlarges toward the urethra and compresses it, there will be problems passing urine. What increases the risk? This condition is more likely to develop in men older than 50 years. What are the signs or symptoms? Symptoms of this condition include: Getting up often during the night to urinate. Needing to urinate frequently during the day. Difficulty starting urine flow. Decrease in size and strength of your urine stream. Leaking (dribbling) after urinating. Inability to pass urine. This needs immediate treatment. Inability to completely empty your bladder. Pain when you pass urine. This is more common if there is also an infection. Urinary tract infection (UTI). How is this diagnosed? This condition is diagnosed based on your medical history, a physical exam, and your symptoms. Tests will also be done, such as: A post-void bladder scan. This measures any amount of urine that may remain in your bladder after you finish urinating. A digital rectal exam. In a rectal exam, your health care provider checks your prostate by putting a lubricated, gloved finger into your rectum to feel the back of your prostate gland. This exam detects the size of your gland and any abnormal lumps or growths. An exam of your urine (urinalysis). A prostate specific antigen (PSA) screening. This is a blood test used to screen for prostate cancer. An ultrasound. This test uses sound waves to electronically produce a picture of your prostate gland. Your health care provider may refer you to a specialist in kidney and prostate diseases (urologist). How is this treated? Once symptoms begin, your health care provider will monitor your condition (active surveillance or watchful waiting). Treatment for this condition will depend on the severity of your condition. Treatment may include: Observation and yearly exams. This may be the only treatment needed if your condition and symptoms are mild. Medicines to relieve your symptoms, including: ?Medicines to shrink the prostate. ?Medicines to relax the muscle of the prostate. Surgery in severe cases. Surgery may include: ?Prostatectomy. In this procedure, the prostate tissue is removed completely through an open incision or with a laparoscope or robotics. ?Transurethral resection of the prostate (TURP). In this procedure, a tool is inserted through the opening at the tip of the penis (urethra). It is used to cut away tissue of the inner core of the prostate. The pieces are removed through the same opening of the penis. This removes the blockage. ?Transurethral incision (TUIP). In this procedure, small cuts are made in the prostate. This lessens the prostate's pressure on the urethra. ?Transurethral microwave thermotherapy (TUMT). This procedure uses microwaves to create heat. The heat destroys and removes a small amount of prostate tissue. ?Transurethral needle ablation (TUNA). This procedure uses radio frequencies to destroy and remove a small amount of prostate tissue. ?Interstitial laser coagulation (ILC). This procedure uses a laser to destroy and remove a small amount of prostate tissue. ?Transurethral electrovaporization (TUVP). This procedure uses electrodes to destroy and remove a small amount of prostate tissue. ?Prostatic urethral lift. This procedure inserts an implant to push the lobes of the prostate away from the urethra. Follow these instructions at home: Take [id number] and prescription medicines only as told by your health care provider. Monitor your symptoms for any changes. Contact your health care provider with any changes. Avoid drinking large amounts of liquid before going to bed or out in public. Avoid or reduce how much caffeine or alcohol you drink. Give yourself time when you urinate. Keep all follow-up visits. This is important. Contact a health care provider if: You have unexplained back pain. Your symptoms do not get better with treatment. You develop side effects from the medicine you are taking. Your urine becomes very dark or has a bad smell. Your lower abdomen becomes distended and you have trouble passing urine. Get help right away if: You have a fever or chills. You suddenly cannot urinate. You feel light-headed or very dizzy, or you faint. There are large amounts of blood or clots in your urine. Your urinary problems become hard to manage. You develop moderate to severe low back or flank pain. The flank is the side of your body between the ribs and the hip. These symptoms may be an emergency. Get help right away. Call 911. Do not wait to see if the symptoms will go away. Do not drive yourself to the hospital. Summary Benign prostatic hyperplasia (BPH) is an enlarged prostate that is caused by the normal aging process. It is not caused by cancer. An enlarged prostate can press on the urethra. This can make it hard to pass urine. This condition is more likely to develop in men older than 50 years. Get help right away if you suddenly cannot urinate. This information is not intended to replace advice given to you by your health care provider. Make sure you discuss any questions you have with your health care provider. Document Revised: 09/04/2021 Document Reviewed: 09/04/2021 [employer] Patient Education 2022 [employer]. Follow Up Care 03/21/2022 12:44:25 With:CARINE DELGADO, Yin Patel, URL Address: [facility] [address] , [facility] [place] [address]- [phone] When:Within 8 Month(s) Comments:PSA [facility] [place] 04-01-2022 History of Present illness Narrative Luis Luis was seen and examined by Dr. High today. Patient is doing well. He has recovered from external beam and brachytherapy radiation. He denies any unusual pain. He has occasional burning with urination but has improved and continues to improve. He denies any problems with his bowels. Patient was given treatment summary and survivorship care plan for prostate cancer. Yancy Oneill APRN.ANNA documented in this encounter [facility] 04-01-2022 History of Present illness Narrative Radiation Oncology - Follow Up Note PATIENT NAME: Luis Luis PATIENT DIAGNOSIS: Prostate adenocarcinoma, initial PSA 4.3, biopsy Cy score 3 + 4 = 7 (grade group 2), clinical stage T2a, N0, M0, stage IIB [T1-T2, N0, M0, PSA <20, GG 2] (AJCC 8th ed.), s/p TRUS Random and MRI fusion biopsy. RADIATION SUMMARY: DATES OF TREATMENT: Pelvic external beam 04/17/2021- 05/22/2021 Prostate brachytherapy: 06/27/2021 DELIVERED DOSE: Pelvis/ Prostate 45 Gy in 25 fractions Prostate brachytherapy 100 Robles, medium 103 sources, 107.14 mCi INTERVAL HISTORY: The patient presents for routine follow-up. He states he is doing well. Bladder function continues to resolve. Previous dysuria nearly resolved. Denies any significant obstructive issues. PSA HISTORY: PSA. (no units) Date Value 03/11/2022 <0.13 07/16/2021 0.20 ALLERGIES No Known Allergies URO-MP 118-10-40.8-36 mg Take 1 capsule by mouth twice daily. propafenone (RYTHMOL) 150 mg tablet Take 150 mg by mouth three times daily. tamsulosin (FLOMAX) 0.4 mg Take 0.4 mg by mouth once daily. acetaminophen/diphenhydramine (TYLENOL PM EXTRA STRENGTH ORAL) Take by mouth. acetaminophen (TYLENOL) 325 mg tablet Take by mouth. atorvastatin (LIPITOR) 10 mg tablet Take 10 mg by mouth. dilTIAZem LA (CARDIZEM LA) 240 mg 24 hr tablet Take 240 mg by mouth. REVIEW OF SYSTEMS: D/N = 4-6/0-1 Hematuria: No Dysuria: No Incontinence: No Urgency: Mild Catheter use: No Medications to aid urination: Patient restarted Flomax on his own without hypotensive event or tachycardia portable - Total AUA Score: 14 Bowel movement frequency: 1/day Bowel movement quality: normal Blood per rectum: none Androgen deprivation: Lupron, was discontinued PHYSICAL EXAM: BP 159/90 Pulse 82 Temp 36.2 C (97.2 F) Resp 18 Wt (!) 142.8 kg (314 lb 12.8 oz) SpO2 98% KPS: 100 General Appearance: Alert and oriented. No acute distress. Rectal exam is deferred. ASSESSMENT/PLAN: Prostate adenocarcinoma, initial PSA 4.3, biopsy [place] score 3 + 4 = 7 (grade group 2), clinical stage T2a, N0, M0, stage IIB [T1-T2, N0, M0, PSA <20, GG 2] (AJCC 8th ed.), s/p TRUS Random and MRI fusion biopsy. Patient overall doing well. PSA undetectable. No significant posttreatment related issues. Has continued close follow-up with Dr. Grove. Plan see patient back in 6 months for further postradiation follow-up. Signed by: Demond High MD cc: Kevin Brewer MD ([facility]) [address] [place] [address] Portions of the above note extracted and edited from previous visit as well as active information included in the EMR. documented in this encounter [facility] 04-01-2022 Nurse Note AUA 14 Naida Jacobo RN documented in this encounter [facility] 03-21-2022 Hospital Discharge instructions Patient Education 03/21/2022 12:26:00 Prostate Cancer Prostate Cancer The prostate is a walnut-sized gland that is involved in the production of semen. It is located below a man's bladder, in front of the rectum. Prostate cancer is the abnormal growth of cells in the prostate gland. What are the causes? The exact cause of this condition is not known. What increases the risk? This condition is more likely to develop in men who: Are older than age 65. Are -[place]. Are obese. Have a family history of prostate cancer. Have a family history of breast cancer. What are the signs or symptoms? Symptoms of this condition include: A need to urinate often. Weak or interrupted flow of urine. Trouble starting or stopping urination. Inability to urinate. Pain or burning during urination. Painful ejaculation. Blood in urine or semen. Persistent pain or discomfort in the lower back, lower abdomen, hips, or upper thighs. Trouble getting an erection. Trouble emptying the bladder all the way. How is this diagnosed? This condition can be diagnosed with: A digital rectal exam. For this exam, a health care provider inserts a gloved finger into the rectum to feel the prostate gland. A blood test called a prostate-specific antigen (PSA) test. An imaging test called transrectal ultrasonography. A procedure in which a sample of tissue is taken from the prostate and examined under a microscope (prostate biopsy). Once the condition is diagnosed, tests will be done to determine how far the cancer has spread. This is called staging the cancer. Staging may involve imaging tests, such as: A bone scan. A CT scan. A PET scan. An MRI. The stages of prostate cancer are as follows: Stage I. At this stage, the cancer is found in the prostate only. The cancer is not visible on imaging tests and it is usually found by accident, such as during a prostate surgery. Stage II. At this stage, the cancer is more advanced than it is in stage I, but the cancer has not spread outside the prostate. Stage III. At this stage, the cancer has spread beyond the outer layer of the prostate to nearby tissues. The cancer may be found in the seminal vesicles, which are near the bladder and the prostate. Stage IV. At this stage, the cancer has spread other parts of the body, such as the lymph nodes, bones, bladder, rectum, liver, or lungs. How is this treated? Treatment for this condition depends on several factors, including the stage of the cancer, your age, personal preferences, and your overall health. Talk with your health care provider about treatment options that are recommended for you. Common treatments include: Observation for early stage prostate cancer (active surveillance). This involves having exams, blood tests, and in some cases, more biopsies. For some men, this is the only treatment needed. Surgery. Types of surgeries include: ?Open surgery. In this surgery, a larger incision is made to remove the prostate. ?A laparoscopic prostatectomy. This is a surgery to remove the prostate and lymph nodes through several, small incisions. It is often referred to as a minimally invasive surgery. ?A robotic prostatectomy. This is a surgery to remove the prostate and lymph nodes with the help of a robotic arm that is controlled by a computer. ?Orchiectomy. This is a surgery to remove the testicles. ?Cryosurgery. This is a surgery to freeze and destroy cancer cells. Radiation treatment. Types of radiation treatment include: ?External beam radiation. This type aims beams of radiation from outside the body at the prostate to destroy cancerous cells. ?Brachytherapy. This type uses radioactive needles, seeds, wires, or tubes that are implanted into the prostate gland. Like external beam radiation, brachytherapy destroys cancerous cells. An advantage is that this type of radiation limits the damage to surrounding tissue and has fewer side effects. High-intensity, focused ultrasonography. This treatment destroys cancer cells by delivering high-energy ultrasound waves to the cancerous cells. Chemotherapy medicines. This treatment kills cancer cells or stops them from multiplying. Hormone treatment. This treatment involves taking medicines that act on one of the male hormones (testosterone): ?By stopping your body from producing testosterone. ?By blocking testosterone from reaching cancer cells. Follow these instructions at home: Take [id number] and prescription medicines only as told by your health care provider. Maintain a healthy diet. Get plenty of sleep. Consider joining a support group for men who have prostate cancer. Meeting with a support group may help you learn to cope with the stress of having cancer. Keep all follow-up visits as told by your health care provider. This is important. If you have to go to the hospital, notify your cancer specialist (oncologist). Treatment for prostate cancer may affect sexual function. Continue to have intimate moments with your partner. This may include touching, holding, hugging, and caressing. Contact a health care provider if: You have trouble urinating. You have blood in your urine. You have pain in your hips, back, or chest. Get help right away if: You have weakness or numbness in your legs. You cannot control urination or your bowel movements (incontinence). You have trouble breathing. You have sudden chest pain. You have chills or a fever. Summary The prostate is a walnut-sized gland that is involved in the production of semen. It is located below a man's bladder, in front of the rectum. Prostate cancer is the abnormal growth of cells in the prostate gland. Treatment for this condition depends on several factors, including the stage of the cancer, your age, personal preferences, and your overall health. Talk with your health care provider about treatment options that are recommended for you. Consider joining a support group for men who have prostate cancer. Meeting with a support group may help you learn to cope with the stress of having cancer. This information is not intended to replace advice given to you by your health care provider. Make sure you discuss any questions you have with your health care provider. Document Released: 02/16/2006 Document Revised: 01/29/2018 Document Reviewed: 10/27/2016 [employer] Patient Education 2020 [employer]. Follow Up Care 09/30/2021 11:58:37 With:CARINE DELGADO, Yin Patel, URL Address: [address] [place] [address] [place] [address]- When: Unknown Comments:6 mos w/ PSA [facility] 02-06-2022 Miscellaneous Notes Patient has been rescheduled & notified of appointment. Monica Rodríguez Pt has PSA scheduled with Dr Grove in March and would like to postpone his follow up visit with Dr High until after that is done. PSS- please call pt and reschedule. He will be awaiting your call. Naida Jacobo RN documented in this encounter [facility] 09-30-2021 Hospital Discharge instructions Patient Education 09/30/2021 11:50:37 Benign Prostatic Hyperplasia Benign Prostatic Hyperplasia Benign prostatic hyperplasia (BPH) is an enlarged prostate gland that is caused by the normal aging process and not by cancer. The prostate is a walnut-sized gland that is involved in the production of semen. It is located in front of the rectum and below the bladder. The bladder stores urine and the urethra is the tube that carries the urine out of the body. The prostate may get bigger as a man gets older. An enlarged prostate can press on the urethra. This can make it harder to pass urine. The build-up of urine in the bladder can cause infection. Back pressure and infection may progress to bladder damage and kidney (renal) failure. What are the causes? This condition is part of a normal aging process. However, not all men develop problems from this condition. If the prostate enlarges away from the urethra, urine flow will not be blocked. If it enlarges toward the urethra and compresses it, there will be problems passing urine. What increases the risk? This condition is more likely to develop in men over the age of 50 years. What are the signs or symptoms? Symptoms of this condition include: Getting up often during the night to urinate. Needing to urinate frequently during the day. Difficulty starting urine flow. Decrease in size and strength of your urine stream. Leaking (dribbling) after urinating. Inability to pass urine. This needs immediate treatment. Inability to completely empty your bladder. Pain when you pass urine. This is more common if there is also an infection. Urinary tract infection (UTI). How is this diagnosed? This condition is diagnosed based on your medical history, a physical exam, and your symptoms. Tests will also be done, such as: A post-void bladder scan. This measures any amount of urine that may remain in your bladder after you finish urinating. A digital rectal exam. In a rectal exam, your health care provider checks your prostate by putting a lubricated, gloved finger into your rectum to feel the back of your prostate gland. This exam detects the size of your gland and any abnormal lumps or growths. An exam of your urine (urinalysis). A prostate specific antigen (PSA) screening. This is a blood test used to screen for prostate cancer. An ultrasound. This test uses sound waves to electronically produce a picture of your prostate gland. Your health care provider may refer you to a specialist in kidney and prostate diseases (urologist). How is this treated? Once symptoms begin, your health care provider will monitor your condition (active surveillance or watchful waiting). Treatment for this condition will depend on the severity of your condition. Treatment may include: Observation and yearly exams. This may be the only treatment needed if your condition and symptoms are mild. Medicines to relieve your symptoms, including: ?Medicines to shrink the prostate. ?Medicines to relax the muscle of the prostate. Surgery in severe cases. Surgery may include: ?Prostatectomy. In this procedure, the prostate tissue is removed completely through an open incision or with a laparoscope or robotics. ?Transurethral resection of the prostate (TURP). In this procedure, a tool is inserted through the opening at the tip of the penis (urethra). It is used to cut away tissue of the inner core of the prostate. The pieces are removed through the same opening of the penis. This removes the blockage. ?Transurethral incision (TUIP). In this procedure, small cuts are made in the prostate. This lessens the prostate's pressure on the urethra. ?Transurethral microwave thermotherapy (TUMT). This procedure uses microwaves to create heat. The heat destroys and removes a small amount of prostate tissue. ?Transurethral needle ablation (TUNA). This procedure uses radio frequencies to destroy and remove a small amount of prostate tissue. ?Interstitial laser coagulation (ILC). This procedure uses a laser to destroy and remove a small amount of prostate tissue. ?Transurethral electrovaporization (TUVP). This procedure uses electrodes to destroy and remove a small amount of prostate tissue. ?Prostatic urethral lift. This procedure inserts an implant to push the lobes of the prostate away from the urethra. Follow these instructions at home: Take vaeb-oht-ylcpmpr and prescription medicines only as told by your health care provider. Monitor your symptoms for any changes. Contact your health care provider with any changes. Avoid drinking large amounts of liquid before going to bed or out in public. Avoid or reduce how much caffeine or alcohol you drink. Give yourself time when you urinate. Keep all follow-up visits as told by your health care provider. This is important. Contact a health care provider if: You have unexplained back pain. Your symptoms do not get better with treatment. You develop side effects from the medicine you are taking. Your urine becomes very dark or has a bad smell. Your lower abdomen becomes distended and you have trouble passing your urine. Get help right away if: You have a fever or chills. You suddenly cannot urinate. You feel lightheaded, or very dizzy, or you faint. There are large amounts of blood or clots in the urine. Your urinary problems become hard to manage. You develop moderate to severe low back or flank pain. The flank is the side of your body between the ribs and the hip. These symptoms may represent a serious problem that is an emergency. Do not wait to see if the symptoms will go away. Get medical help right away. Call your local emergency services (911 in the [place] Do not drive yourself to the hospital. Summary Benign prostatic hyperplasia (BPH) is an enlarged prostate that is caused by the normal aging process and not by cancer. An enlarged prostate can press on the urethra. This can make it hard to pass urine. This condition is part of a normal aging process and is more likely to develop in men over the age of 50 years. Get help right away if you suddenly cannot urinate. This information is not intended to replace advice given to you by your health care provider. Make sure you discuss any questions you have with your health care provider. Document Released: 02/16/2006 Document Revised: 01/11/2019 Document Reviewed: 03/23/2017 [employer] Patient Education 2020 [employer] Follow Up Care 04/01/2021 13:09:22 With:CARINE DELGADO, Yin Patel, URL Address: [facility] [address], [place] [phone] When:Within 6 Month(s) Comments:w/ PSA [facility] [place] 08-14-2021 Nurse Note AUA 18 Naida Jacobo RN documented in this encounter [facility] 08-14-2021 History of Present illness Narrative Radiation Oncology - Follow Up Note PATIENT NAME: Luis Luis PATIENT DIAGNOSIS: Prostate adenocarcinoma, initial PSA 4.3, biopsy [place] score 3 + 4 = 7 (grade group 2), clinical stage T2a, N0, M0, stage IIB [T1-T2, N0, M0, PSA <20, GG 2] (AJCC 8th ed.), s/p TRUS Random and MRI fusion biopsy. RADIATION SUMMARY: DATES OF TREATMENT: Pelvic external beam 04/17/2021- 05/22/2021 Prostate brachytherapy: 06/27/2021 DELIVERED DOSE: Pelvis/ Prostate 45 Gy in 25 fractions Prostate brachytherapy 100 Robles, medium 103 sources, 107.14 mCi INTERVAL HISTORY: The patient presents for routine follow-up. Overall bladder function improving, less frequency less obstructive symptoms. Denies dysuria hematuria. No other new problems. PSA HISTORY: PSA. (no units) Date Value 07/16/2021 0.20 ALLERGIES No Known Allergies propafenone (RYTHMOL) 150 mg tablet Take 150 mg by mouth three times daily. tamsulosin (FLOMAX) 0.4 mg Take 0.4 mg by mouth once daily. acetaminophen/diphenhydramine (TYLENOL PM EXTRA STRENGTH ORAL) Take by mouth. acetaminophen (TYLENOL) 325 mg tablet Take by mouth. aspirin, enteric coated (ASPIRIN, ENTERIC COATED) 81 mg EC tablet Take 81 mg by mouth. atorvastatin (LIPITOR) 10 mg tablet Take 10 mg by mouth. dilTIAZem LA (CARDIZEM LA) 240 mg 24 hr tablet Take 240 mg by mouth. URO-MP 118-10-40.8-36 mg Take 1 capsule by mouth twice daily. REVIEW OF SYSTEMS: D/N = 4-6/2-3 Hematuria: No Dysuria: No Incontinence: No Urgency: moderate Catheter use: No Medications to aid urination: Patient restarted Flomax on his own without hypotensive event or tachycardia portable - Total AUA Score: 18 Bowel movement frequency: 1/day Bowel movement quality: normal Blood per rectum: none Androgen deprivation: Lupron PHYSICAL EXAM: BP 131/82 Pulse 82 Temp (!) 35.9 C (96.7 F) Resp 20 Wt (!) 142 kg (313 lb) SpO2 94% KPS: 100 General Appearance: Alert and oriented. No acute distress. Rectal exam is deferred. ASSESSMENT/PLAN: Prostate adenocarcinoma, initial PSA 4.3, biopsy Cy score 3 + 4 = 7 (grade group 2), clinical stage T2a, N0, M0, stage IIB [T1-T2, N0, M0, PSA <20, GG 2] (AJCC 8th ed.), s/p TRUS Random and MRI fusion biopsy. Patient overall doing well. Post-implant CT shows excellent prostate coverage and appropriate normal tissue sparing. No change of modification in either the treatment or follow-up plan based on this. Recommend repeat PSA in 6 months. Patient has continued close follow-up with his urologist as well. Signed by: Demond High MD cc: Kevin Brewer MD ([facility]) [address] [place] [id number] documented in this encounter [facility] 08-09-2021 Hospital Discharge instructions Patient Education 08/09/2021 10:05:01 Brachytherapy for Prostate Cancer Brachytherapy for Prostate Cancer Brachytherapy for prostate cancer is radiation treatment that is placed inside of the prostate (prostate gland). There are several types of brachytherapy: Low-dose rate (LDR) therapy. This may involve temporary implants or permanent radioactive seed or pellet implants. The radiation does not travel far from the prostate, which means that healthy, noncancerous tissues around the prostate receive only a small dose of radiation. This helps to protect those tissues from injury. This type of treatment may be followed by a course of external beam radiation. ?Temporary low-dose implants are left in the prostate for 1 7 days. The implants are needles, applicators, or thin, plastic tubes (catheters) that contain radioactive material. You will need to stay in the hospital while the implant is in place. ?Permanent low-dose implants (seeds or pellets) are injected into the prostate, and they work for up to one year after they are inserted. They are left in place and are not removed. High-dose rate (HDR) therapy. This is given through needles, applicators, or catheters that contain radioactive material. The tubes are removed after treatment, and no radiation is left in the prostate. This type of treatment may be followed by a course of external beam radiation. Tell a health care provider about: Any allergies you have. All medicines you are taking, including vitamins, herbs, eye drops, creams, and [id number]-[id number] medicines. Any problems you or family members have had with anesthetic medicines. Any surgeries you have had. Any blood disorders you have. Any medical conditions you have. What are the risks? Generally, this is a safe procedure. However, problems may occur, including: Inflammation of the rectum. Problems getting or keeping an erection (erectile dysfunction). Trouble urinating. Diarrhea. Bleeding. Loss of bowel control. What happens before the procedure? Staying hydrated Follow instructions from your health care provider about hydration, which may include: Up to 2 hours before the procedure you may continue to drink clear liquids, such as water, clear fruit juice, black coffee, and plain tea. Eating and drinking Follow instructions from your health care provider about eating and drinking, which may include: 8 hours before the procedure stop eating heavy meals or foods such as meat, fried foods, or fatty foods. 6 hours before the procedure stop eating light meals or foods, such as toast or cereal. 6 hours before the procedure stop drinking milk or drinks that contain milk. 2 hours before the procedure stop drinking clear liquids. Medicines Ask your health care provider about: ?Changing or stopping your regular medicines. This is especially important if you are taking diabetes medicines or blood thinners. ?Taking medicines such as aspirin and ibuprofen. These medicines can thin your blood. Do not take these medicines before your procedure if your health care provider instructs you not to. You may be given antibiotic medicine to help prevent infection. General instructions Plan to have someone take you home from the hospital or clinic. If you will be going home right after the procedure, plan to have someone with you for 24 hours. You may have imaging tests done, including an ultrasound, CT scan, or MRI. You may have blood tests done. You may have a test to check the electrical signals in your heart (electrocardiogram). You may need to take medicine to clean out your bowel (bowel prep). What happens during the procedure? To lower your risk of infection: ?Your health care team will wash or sanitize their hands. ?Your skin will be washed with soap. ?Hair may be removed from the surgical area. An IV will be inserted into one of your veins. You will be given one or more of the following: ?A medicine to help you relax (sedative). ?A medicine to numb the area (local anesthetic). ?A medicine to make you fall asleep (general anesthetic). You may have a thin, plastic tube (catheter) inserted to drain your bladder. If you are receiving brachytherapy with implants: ?A needle, applicator, or catheter will be inserted into the prostate. It will be inserted through a body cavity, such as the rectum, or through the tissue between the testicles and the anus (perineum). ?An X-ray, ultrasound, MRI, or CT scan will be used to guide the catheter or applicator toward the prostate. ?Radioactive seeds, wires, or ribbons will be fed through the catheter or applicator. ?If the high-dose method is used: ?The radioactive wires or ribbons will be left in for a few minutes and then removed. ?Once the treatment is finished, the catheter or applicator will be removed. ?If the low-dose method is used, the implant will stay in place for 1 7 days. ?You will remain in the hospital while the implant is in place. ?Once the treatment is finished, the radioactive material and catheter will be removed. If you are receiving permanent, low-dose brachytherapy: ?Small, radioactive seeds or pellets will be injected into your prostate. This may be done through a catheter, needle, or applicator. ?The catheter or applicator will be removed, leaving the seeds in the prostate. The procedure may vary among health care providers and hospitals. What happens after the procedure? Your blood pressure, heart rate, breathing rate, and blood oxygen level will be monitored until the medicines you were given have worn off. Do not drive for 24 hours if you were given a sedative. Summary Brachytherapy for prostate cancer is radiation treatment placed inside of the prostate (prostate gland). There are several types of brachytherapy for prostate cancer, including low-dose temporary treatment, low-dose permanent treatment, and high-dose temporary treatment. Temporary low-dose implants are left in the prostate for 1 7 days. Permanent low-dose implants are injected into the prostate and left in place. They work for up to one year after they are inserted. Permanent high-dose therapy is given through tubes that contain radioactive material. The tubes are removed after treatment, and no radiation is left in the prostate. This information is not intended to replace advice given to you by your health care provider. Make sure you discuss any questions you have with your health care provider. Document Released: 07/27/2006 Document Revised: 01/29/2018 Document Reviewed: 02/25/2017 [employer] Patient Education 2020 [employer]. Follow Up Care 07/04/2021 11:13:01 With:CARINE DELGADO, Yin Patel, URL Address: [facility] [address] [place] [address]- [phone] When: Unknown [facility] 08-05-2021 Miscellaneous Notes Ok to resched Luis called in stating he tested positive for COVID-19 on 08/03/21 and his symptoms started , 08/01/21. He has a scheduled 6wk post implant follow up on 08/08/21. He will call us later in the week to possibly reschedule his follow up. Kelly Guo LPN documented in this encounter [facility] 07-25-2021 History of Present illness Narrative Patient: Luis Luis Date:07/25/2021 [facility] Department of Radiation Oncology [facility] RADIATION ONCOLOGY POST SEED IMPLANT SIMULATION NOTE DATE OF SIMULATION: 07/25/2021 MACHINE: CT Simulator AREA:Prostate PATIENT POSITION: Supine. CONTRAST: None PROTOCOL: None CONCURRENT THERAPY: None FIXATION DEVICE: None PROCEDURE: Patient was simulated on the CT scanner and CT images of the patients pelvis obtained. ASSESSMENT/PLAN: Patient tolerated simulation procedure well. CT images were obtained on the CT simulator for the prostate post brachy therapy seed implant planning. Post planning for the permanent seed prostate brachy procedure will commence following simulation. Electronically Signed CHAVEZ HIGH M.D. 23:26 PM documented in this encounter [facility] 06-27-2021 History of Present illness Narrative Date: 06/27/21 Facility: [facility] Procedure: prostate transperineal brachytherapy implant Sources: [id number] Anesthesia:general Urologist: Dr. Grove This is an operative report supplement to Dr. Grove note. Prior the the implant patient underwent planning using transrectal ultrasound based. The planning including outline of prostate and planning margin around prostate to deliver 100 Gy using Pd 103 sources. It was determined 64 sources, for a total of 107.14 mCi was necessary using 18 needles. Prior to the procedure on the morning of the implant, patient identified by name and hospital ID bracelet. After anesthesia administered patient placed in dorsal-lithotomy position and ultrasound study done showing good correlation with planning images and excellent visualization of the gland. Implant was then carried out using transperineal technique with active ultrasound and fluoroscopic guidance. At the end of the case the treatment planning ultrasound computer showed captured seed located in expected position with appropriate target coverage, no extra seeds implanted. X-ray image showed good seed distribution and all 64 sources. Intraoperative dosimetry reviewed showing D90 of 107.4%, and excelent coverage of gland by the 100% IDL. After the cystoscopy physics performed survey with meter of patient, cystoscopy fluid, floor, trash, work table and general area. No excess activity seen, results documented. Arnol High MD (Signed electronically to expedite mailing) [facility] documented in this encounter [facility] 06-11-2021 History of Present illness Narrative UNIVERSAL PROTOCOL / SAFETY CHECKLIST Procedure to be Performed: Prostate volume study Sign In: A Moment of CARE was completed. Personnel directly involved with the procedure wore the appropriate PPE (Personal Protective Equipment). Patient/Surrogate Stated/Verified: PATIENT VERIFIED(optional for EMERGENT procedures): Patient name, Date of , Relevant allergies and The intended procedure Time Out Communication: Intended patient and procedure match the source documents. Consent documented and matches the intended procedure. Sign Out: SIGN OUT (optional for EMERGENT procedures): No specimen collected. Demond High MD documented in this encounter [facility] 06-11-2021 History of Present illness Narrative LUIS LUIS [id number] 06/11/2021 [facility] Department of Radiation Oncology [facility] RADIATION ONCOLOGY SIMULATION NOTE DATE OF SIMULATION: 06/11/2021 MACHINE: Flexiroam Focus 500 Diagnosis: 185 (Prostate Gland) AREA:Prostate PATIENT POSITION: Supine CONTRAST: None PROTOCOL: None CONCURRENT THERAPY: None FIXATION DEVICE: UTS Stabilization device by [email or web address]. PROCEDURE: Patient was simulated in exaggerated dorsal lithotomy position. Serial images of the prostate were acquired using TRUS and reconstructed in 3D space. These images were imported into [employer] Prostate planning system where a plan was generated. ASSESSMENT/PLAN: Patient tolerated simulation procedure well. Electronically Signed Chavez High M.D. / LAURA 25:05 PM documented in this encounter [facility] Evaluation + Plan note Future Appointments Appointment Date:08/05/2021 08:45:00 AM Scheduled Provider:Yin GROVE MD Location:[place] Appointment Type:URO Office Visit Appointment Date:09/30/2021 10:30:00 AM Scheduled Provider:Yin GROVE MD Location:[place] Appointment Type:URO Office Visit Future Scheduled TestsPT & PTT 03/05/21BUN 03/05/21Creatinine 03/05/21Electrolyte Panel 03/05/21CBC w/ Auto Diff 03/05/21XR Chest 2 Views 03/05/21 [facility] Evaluation + Plan note Future Appointments Appointment Date:09/30/2021 10:30:00 AM Scheduled Provider:Yin GROVE MD Location:[place] Appointment Type:URO Office Visit Diagnostic Tests PendingPSA Total 08/09/21 Future Scheduled TestsPT & PTT 03/05/21BUN 03/05/21Creatinine 03/05/21Electrolyte Panel 03/05/21CBC w/ Auto Diff 03/05/21XR Chest 2 Views 03/05/21 [facility] Evaluation + Plan note Future Appointments Appointment Date:03/21/2022 11:00:00 AM Scheduled Provider:Yin GROVE MD Location:[place] Appointment Type:URO Office Visit Diagnostic Tests PendingPSA Total 09/30/21 Future Scheduled TestsPT & PTT 03/05/21BUN 03/05/21Creatinine 03/05/21Electrolyte Panel 03/05/21CBC w/ Auto Diff 03/05/21XR Chest 2 Views 03/05/21 [facility] Evaluation + Plan note Future Appointments Appointment Date:09/08/2022 10:15:00 AM Scheduled Provider:Yin GROVE MD Location:[place] Appointment Type:URO Office Visit Diagnostic Tests PendingPSA Total 06/30/22 [facility] Evaluation + Plan note Future Appointments Appointment Date:05/11/2023 09:45:00 AM Scheduled Provider:[facility] Office Visit Diagnostic Tests PendingPSA Total 09/08/22 [facility] Evaluation + Plan note Future Appointments Appointment Date:05/13/2024 09:45:00 AM Scheduled Provider:Yni GROVE MD Location:[place] Appointment Type:URO Office Visit Diagnostic Tests PendingPSA Total 05/11/23 [facility] Evaluation note Diagnosis Malignant neoplasm of prostate (HCC)- Primary Malignant neoplasm of prostate [facility] Diagnosis Malignant neoplasm of prostate (HCC)- Primary Malignant neoplasm of prostate [facility] Diagnosis Malignant neoplasm of prostate (HCC)- Primary Malignant neoplasm of prostate [facility] Diagnosis Prostate cancer (HCC) Malignant neoplasm of prostate [facility] Diagnosis Malignant neoplasm of prostate (HCC)- Primary Malignant neoplasm of prostate [facility] Diagnosis Malignant neoplasm of prostate (HCC)- Primary Malignant neoplasm of prostate [facility] Diagnosis Paroxysmal SVT (supraventricular tachycardia)- Primary Primary hypertension Unspecified essential hypertension Mixed hyperlipidemia Morbid obesity with BMI of 40.0-44.9, adult (CMS/HCC) Bifascicular block Other bilateral bundle branch block documented in this encounter [facility] Work Phone: Evaluation note* Diagnosis Malignant neoplasm of prostate (HCC)- Primary Malignant neoplasm of prostate [facility] NarrativePatient returns in follow-up of problems as noted. In the interim she is done well. She had very good control of her supraventricular tachycardia no breakthroughs. She was very symptomatic when she had it before in the absence of symptoms leads me to suspect the control has been good. Treatment of other cardiac risk factors including lipids and cholesterol as well as blood pressure discussed and reviewed and treatment is adequate and appropriate. We discussed the merits of diet lifestyle modific ation exercise and weight loss.[facility] Work Phone: History of Present illness Narrative* Rare episoldes of SVT * Patient returns in follow-up of problems as noted. He is doing well. Control of cardiac risk factors including hypertension and hyperlipidemia is reviewed and felt to be adequate and appropriate. He states that with the addition of propafenone he had extremely rare breakthroughs of SVT short in duration of well-tolerated because of this he wishes to continue medical therapy as is without further adjustment or other intervention. We advocated the merits of diet exercise and weight loss. [facility] Work Phone: Hospital course Narrative No data available for this section [facility] Hospital Discharge instructions No data available for this section [facility] Progress note No data available for this section [facility] Purpose Family History No Family History Records FoundUnknown Family Member Name Dates Details Family history of cardiac ar rhythmia: Brother(V17.49, Z82.49) Status:Active Family history of cerebrovas cular accident (CVA): Sister(V17.1, Z82.3) Status:Active Unknown Family Member Name Dates Details Family history of cerebrovas cular accident (CVA): Sister(V17.1, Z82.3) Status:Active Family history of cardiac ar rhythmia: Brother(V17.49, Z82.49) Status:Active Unknown Family Member Name Dates Details Family history of cardiac ar rhythmia: Brother(V17.49, Z82.49) Status:Active Family history of cerebrovas cular accident (CVA): Sister(V17.1, Z82.3) Status:Active Unknown Family Member Name Dates Details Family history of cardiac ar rhythmia: Brother(V17.49, Z82.49) Status:Active Family history of cerebrovas cular accident (CVA): Sister(V17.1, Z82.3) Status:Active Unknown Family Member Name Dates Details Family history of cardiac ar rhythmia: Brother(V17.49, Z82.49) Status:Active Family history of cerebrovas cular accident (CVA): Sister(V17.1, Z82.3) Status:Active Unknown Family Member Name Dates Details Family history of cardiac ar rhythmia: Brother(V17.49, Z82.49) Status:Active Family history of cerebrovas cular accident (CVA): Sister(V17.1, Z82.3) Status:Active Unknown Family Member Name Dates Details Family history of cerebrovas cular accident (CVA): Sister(V17.1, Z82.3) Status:Active Family history of cardiac ar rhythmia: Brother(V17.49, Z82.49) Status:Active Unknown Family Member Name Dates Details Family history of cardiac ar rhythmia: Brother(V17.49, Z82.49) Status:Active Family history of cerebrovas cular accident (CVA): Sister(V17.1, Z82.3) Status:Active Advance Directives No Advanced Directives Records FoundNo Advanced Directives Records FoundNo Advanced Directives Records FoundNo Advanced Directives Records FoundNo Advanced Directives Records FoundNo Advanced Directives Records FoundNo Advanced Directives Records FoundNo Advanced Directives Records FoundNo Advanced Directives Records Found Chief Complaint LUIS LUIS is being seen for a 9 month follow-up of.LUIS LUIS is being seen for a 9 month follow-up of.* Patient is here for an EKG visit after starting Propafenone 150mg TID. He states that since he started this medication he has felt much better and is not having any SVT as he been. He is taking the medication as directed. EKG reviewed with Tiffany Shen RN * TO Dr. Parveen Multani MD LUIS LUIS is being seen for an annual follow-up of. Reason for Referral Specialty Diagnoses / Procedures Referred By Myrtle romeo Referred To Contact Diagnoses Paroxysmal SVT (supraventricular tachycardia) Procedures ECG 12 Lead Parveen Multani MD [address] [facility] [address] [place] [address] Referral ID Status Reason Start Date Expiration Date V isits Requested Visits Authorized [id number] Pending Review 02/10/2023 02/10/2024 1 1 Specialty Diagnoses / Procedures Referred By Contac t Referred To Contact Cardiology Diagnoses Paroxysmal SVT (supraventricular tachycardia) Procedures Follow Up In Cardiology Parveen Multani MD [address] [place] [address] [address], [address] [place] [address] Parveen Multani MD [address] [place] [address] 2, [facility] [address] [place] [address] Referral ID Status Reason Start Date Expiration Date V isits Requested Visits Authorized [id number] Authorized 02/10/2023 02/10/2024 1 1 Additional Source Comments (unrecognized sect ion and content) No Status Records FoundNo Status Records FoundNo Status Records FoundNo Status Records FoundNo Status Records FoundNo Status Records FoundNo Status Records FoundNo Status Records FoundNo Status Records Found INFORMATION SOURCE (unrecogn ized section and content) DATE CREATED AUTHOR 12/03/2019 [facility] DATE CREATED AUTHOR AUTHOR'S ORGANIZ ATION 04/21/2021 [facility] DATE CREATED AUTHOR AUTHOR'S ORGANIZ ATION 02/12/2022 [facility] DATE CREATED AUTHOR AUTHOR'S ORGANIZ ATION 02/12/2022 [employer] DATE CREATED AUTHOR AUTHOR'S ORGANIZ ATION 07/10/2022 [facility] DATE CREATED AUTHOR AUTHOR'S ORGANIZ ATION 02/13/2023 [facility] DATE CREATED AUTHOR AUTHOR'S ORGANIZ ATION 04/17/2023 [facility] DATE CREATED AUTHOR AUTHOR'S ORGANIZ ATION 05/13/2023 [facility] DATE CREATED AUTHOR AUTHOR'S ORGANIZ ATION 06/29/[address] [facility] EPIC Source Comments (unrecognize d section and content) In the event this informatio n is protected by the Federal Confidentiality of Alcohol and Drug Abuse Patient Records regulations: The Federal rules restrict any use of the information to criminally investigate or prosecute any alcohol or drug abuse patient.[facility] the event this information is protected by the Federal Confidentiality of Alcohol and Drug Abuse Patient Records regulations: The Federal rules restrict any use of the information to criminally investigate or prosecute any alcohol or drug abuse patient.[facility] the event this information is protected by the Federal Confidentiality of Alcohol and Drug Abuse Patient Records regulations: The Federal rules restrict any use of the information to criminally investigate or prosecute any alcohol or drug abuse patient.[facility] HospitalIn the event this information is protected by the Federal Confidentiality of Alcohol and Drug Abuse Patient Records regulations: The Federal rules restrict any use of the information to criminally investigate or prosecute any alcohol or drug abuse patient.[facility] Hospital[facility] the event this information is protected by the Federal Confidentiality of Alcohol and Drug Abuse Patient Records regulations: The Federal rules restrict any use of the information to criminally investigate or prosecute any alcohol or drug abuse patient.[facility] Hospital[facility] the event this information is protected by the Federal Confidentiality of Alcohol and Drug Abuse Patient Records regulations: The Federal rules restrict any use of the information to criminally investigate or prosecute any alcohol or drug abuse patient.[facility] HospitalIn the event this information is protected by the Federal Confidentiality of Alcohol and Drug Abuse Patient Records regulations: The Federal rules restrict any use of the information to criminally investigate or prosecute any alcohol or drug abuse patient.[facility] Hospital[facility] the event this information is protected by the Federal Confidentiality of Alcohol and Drug Abuse Patient Records regulations: The Federal rules restrict any use of the information to criminally investigate or prosecute any alcohol or drug abuse patient.[facility] HospitalIn the event this information is protected by the Federal Confidentiality of Alcohol and Drug Abuse Patient Records regulations: The Federal rules restrict any use of the information to criminally investigate or prosecute any alcohol or drug abuse patient.[facility] Hospital[facility] the event this information is protected by the Federal Confidentiality of Alcohol and Drug Abuse Patient Records regulations: The Federal rules restrict any use of the information to criminally investigate or prosecute any alcohol or drug abuse patient.[facility] Hospital[facility] the event this information is protected by the Federal Confidentiality of Alcohol and Drug Abuse Patient Records regulations: The Federal rules restrict any use of the information to criminally investigate or prosecute any alcohol or drug abuse patient.[facility] Care Teams (unrecognized sec tion and content) Toppiece Cutter Relationship Specialty Start Date End Date Kevin Brewer [address] [facility] [place] [address] PCP - General Family Practice 03/22/21 Yin Grove MD [address] [place] [address] Referring Urology 03/22/21 Toppiece Cutter Relationship Specialty Start Date End Date Kevin Brewer [address] [place] [address] PCP - General Family Practice 03/22/21 Yin Grove MD [address] [place] [address] Referring Urology 03/22/21 Toppiece Cutter Relationship Specialty Start Date End Date Kevin Brewer [address] [place] [address] PCP - General Family Practice 03/22/21 Yin Grove MD [address] [place] [address] Referring Urology 03/22/21 Toppiece Cutter Relationship Specialty Start Date End Date Kevin Brewer [address] [place] [address] PCP - General Family Practice 03/22/21 Yin Grove MD [address] [place] [address] Referring Urology 03/22/21 Toppiece Cutter Relationship Specialty Start Date End Date Kevin Brewer [address] [place] [address] PCP - General Family Practice 03/22/21 Yin Grove MD [address] [place] [address] Referring Urology 03/22/21 Toppiece Cutter Relationship Specialty Start Date End Date Kevin Brewer [address] [place] [address] PCP - General Family Medicine 03/22/21 Yin Grove MD [address] [place] [address] Referring Urology 03/22/21 Toppiece Cutter Relationship Specialty Start Date End Date Kevin Brewer [address] [place] [address] PCP - General Family Medicine 03/22/21 Yin Grove MD [address] [place] [address] Referring Urology 03/22/21 Toppiece Cutter Relationship Specialty Start Date End Date Kevin Brewer [address] [place] [address] PCP - General Family Medicine 03/22/21 Yin Grove MD [address] [place] [address] Referring Urology 03/22/21 Toppiece Cutter Relationship Specialty Start Date End Date Kevin Brewer Sonia [address] [place] [address] PCP - General Family Medicine 03/22/21 Yin Grove MD [address] [place] [address] Referring Urology 03/22/21 Toppiece Cutter Relationship Specialty Start Date End Date Kevin Brewer MD [address] [place] [address] PCP - General Family Medicine 02/05/23 Toppiece Cutter Relationship Specialty Start Date End Date Kevin Brewer [address] [place] [address] PCP - General Family Medicine 03/22/21 Yin Grove MD [address] [place] [address] Referring Urology 03/22/21 Reason for Visit (unrecogniz ed section and content) Specialty Diagnoses / Procedures Referred By Contac t Referred To Contact Radiation Oncology / RADIATION ONCOLOGY Diagnoses Malignant neoplasm of prostate Seed Im[facility] at [facility] Procedures SEED IMPLANT Demond High MD [address] [place] [address] [place] [address] Demond High MD [address] [place] [address] [place] [address] Referral ID Status Reason Start Date Expiration Date V isits Requested Visits Authorized [id number] Authorized 06/27/2021 03/01/2022 99 99 Reason Comments FYI-No Action Needed Covid19 Concern Reason Comments Prostate Cancer Reason Comments Future Appointment Reason Comments Annual Exam Specialty Diagnoses / Procedures Referred By Contac t Referred To Contact Diagnoses Paroxysmal SVT (supraventricular tachycardia) Procedures ECG 12 Lead Parveen Multani MD [address] [facility] 2, [facility] [address] [place] [address] Referral ID Status Reason Start Date Expiration Date V isits Requested Visits Authorized [id number] Pending Review 02/10/2023 02/10/2024 1 1 FOR RECORDS PERTAINING TO PATIENTS WHO ARE OR HAVE BEEN ENROLLED IN A CHEMICAL DEPENDENCY/SUBSTANCEABUSE PROGRAM, SOME INFORMATION MAY BE OMITTED. This clinical summary was aggregated from multiple sources. Caution should be exercised in using it in the provision of clinical care. This summary normalizes information from multiple sources, and as a consequence, information in this document may materially change the coding, format and clinical context of patient data. In addition, data may be omitted in some cases. CLINICAL DECISIONS SHOULD BE BASED ON THE PRIMARY CLINICAL RECORDS. [facility]. provides no warranty or guarantee of the accuracy or completeness of information in this document.
[2023-07-13 14:16] LABS: Basophils Absolute Auto 0.1 10^3/uL (0.0-0.1); Basophils Percent Auto 0.8 % (0.2-2.0); Eosinophils Absolute Auto 0.1 10^3/uL (0.0-0.7); Eosinophils Percent Auto 1.6 % (0.9-7.0); Hematocrit 43.7 % (42.0-54.0); Hemoglobin 14.8 g/dL (14.0-18.0); Immature Granulocytes Abs Auto 0.03 10^3/uL (0.00-0.03); Immature Granulocytes Pct Auto 0.4 % (0.0-0.5); Lymphocytes Absolute Auto 1.8 10^3/uL (1.2-3.8); Lymphocytes Percent Auto 23.4 % (20.5-60.0); Mean Corpuscular HGB Conc 33.9 g/dL (29.9-35.2); Mean Corpuscular Hemoglobin 30.5 pg (25.9-34.0); Mean Corpuscular Volume 89.9 fL (80.0-94.0); Mean Platelet Volume 10.6 fL (9.5-13.5); Monocytes Absolute Auto 0.5 10^3/uL (0.3-0.8); Monocytes Percent Auto 6.7 % (1.7-12.0); Neutrophils Absolute Auto 5.2 10^3/uL (1.4-6.5); Neutrophils Percent Auto 67.1 % (43.0-75.0); Platelet Count 197 10^3/uL (150-450); Red Blood Count 4.86 10^6/uL (4.70-6.10); Red Cell Distribution Width 13.7 % (11.0-15.0); White Blood Count 7.7 10^3/uL (4.0-11.0)
[2023-07-13 15:20] LABS: Alanine Aminotransferase 46 U/L (16-63); Albumin Globulin Ratio 1.2; Albumin Level 3.8 g/dL (3.4-5.0); Alkaline Phosphatase 58 U/L (46-116); Anion Gap 12.2; Aspartate Amino Transferase 18 U/L (15-37); BUN Creatinine Ratio 20.4; Bilirubin Direct 0.1 mg/dL (0.0-0.2); Bilirubin Total 0.6 mg/dL (0.2-1.0); Calcium 9.2 mg/dL (8.5-10.1); Carbon Dioxide 26.7 mmol/L (21.0-32.0); Chloride 104 mmol/L (98-107); Cholesterol 157 mg/dL (<=200); Estimated GFR (African America >60 (>=60); Estimated GFR (Non-African Ame >60 (>=60); Globulin 3.2 g/dL; Glucose 94 mg/dL (74-106); HDL Cholesterol 53 mg/dL (40-60); LDL Cholesterol Calculated 85.8 mg/dL; Potassium 3.9 mmol/L (3.5-5.1); Sodium 139 mmol/L (136-145); Thyroid Stimulating Hormone 3.433 uIU/mL (0.358-3.740); Triglycerides 91 mg/dL (<=150); VLDL CHOLESTEROL 18.2 mg/dL
== END 2023-07-13 14:00 | disposition home or self-care (01) ==
LOC: LAB 14:02
PROVIDERS: PCP Family Medicine; Visit Provider Family Medicine
DX: E78.5 Hyperlipidemia, unspecified (principal); I10 Essential (primary) hypertension; E66.01 Morbid (severe) obesity due to excess calories; Z79.899 Other long term (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
CPT/HCPCS: 36415; 80048; 80061; 80076; 84443; 85025

== ENCOUNTER 2023-07-14 09:03 | Outpatient (OUT) | payer MEDICARE, SELFPAY ==
--- NOTE | 2023-07-14 09:00 | CA_ITS ---
Patient Name: LUIS RODRIGUEZ MR#: [id number] : 1950 Exam Date: 07/14/2023 Ordering Doctor: DR Kevin Olivo . ECHOCARDIOGRAM REPORT PROCEDURE: CA ECHO DOPPLER COMPLETE INDICATIONS: Bilateral leg edema, shortness of breath, hypertension COMPARISON: None. DESCRIPTION: COMPLETE ECHOCARDIOGRAM Real-time transthoracic echocardiography with 2D, M-mode, spectral and color flow Doppler performed. QUALITY: Technical quality was good. 74 , 325#, BSA 2.67 m2, BP 122/72 LEFT VENTRICLE: Normal chamber size. Proximal septal hypertrophy (sigmoid septum). LV EF: Global left ventricular systolic function is difficult to assess but appears preserved; visually estimated ejection fraction is 55 to 60%. Unable to assess regional wall motion abnormality; consider contrast study for better delineation of endocardial borders. DIASTOLIC: Normal diastolic function. ATRIAL SEPTUM: Inadequately seen. LEFT ATRIUM: Normal chamber size. RIGHT ATRIUM: Normal chamber size. RIGHT VENTRICLE: Poorly seen. Normal chamber size; systolic function appears reduced. TRICUSPID VALVE: Normal mobility and thickness. No stenosis with trivial regurgitation. No evidence of pulmonary hypertension. RVSP 25 mmHg MITRAL VALVE: Normal mobility and thickness. No evidence of mitral valve stenosis. There is no mitral annular calcification. Trivial mitral regurgitation. AORTIC VALVE: Normal trileaflet appearance. Normal leaflet mobility. No evidence of aortic valve stenosis. Focal calcification. No aortic regurgitation. AORTIC ROOT: Normal diameter and appearance. Ascending aorta is normal in size. PULMONIC VALVE: Normal thickness and mobility. No stenosis. Trivial regurgitation. PERICARDIUM: Anterior free space; trivial effusion versus fat pad. IVC: Not well visualized. CONCLUSION: 1. Global left ventricular systolic function is difficult to assess but appears preserved; visually estimated ejection fraction is 55 to 60% 2. The right ventricle is poorly seen; appears normal in size with reduced systolic function 3. Normal diastolic function 4. Valves are poorly seen; no obvious significant valvular abnormalities 5. Anterior free space; trivial effusion versus fat pad Adult Echocardiography Procedure Report Left Ventricle LVEDD (3.7 - 5.6 cm): 5.50 cm LVESD (2.2 - 4.0 cm): 3.58 cm LVIVS thickness (0.6 - 1.2 cm): 1.37 cm LVPW thickness (0.5 - 1.0 cm): 0.97 cm E - e': 5.15 LVOT Max Gradient: 1.98 mm[Hg] LVOT Area (cm2): 0.70 m/s Peak Velocity (LVOT): 0.70 m/s Mean Velocity (LVOT): 0.46 m/s LVOT Diameter 2.42 cm Left Atrium LA Volume Index (2D A2C): 29.46 ml/m2 Left Atrium Systolic Dimension: 3.47 cm Mitral Valve MV E to A Ratio: 1.17 Mitral Valve A-Wave Peak Velocity: 0.50 m/s Mitral Valve E-Wave Peak Velocity: 0.58 m/s Right Ventricle Aorta AO Root Diam: 3.89 cm Ascending Ao Diam: 3.23 cm Aortic Valve AoV Area (Peak Xavier): 2.90 cm2, 2.90 cm2 AoV Area (VTI): 3.10 cm2, 3.10 cm2 Peak Velocity(Antegrade Flow): 1.12 m/s Peak Gradient(Antegrade Flow): 5.01 mm[Hg] Mean Velocity(Antegrade Flow): 0.73 m/s Mean Gradient(Antegrade Flow): 2.47 mm[Hg] Velocity Time Integral: 24.03 cm Tricuspid Valve Peak Velocity (Regurgitant Flow): 2.36 m/s Pulmonic Valve Mean Gradient: 2.53 mm[Hg], 2.27 mm[Hg] Mean Velocity: 0.75 m/s, 0.69 m/s Peak Gradient: 4.39 mm[Hg], 4.13 mm[Hg] Right Atrium Dictated by: Yogi Bruno M.D. on 07/14/2023 at 14:08 Approved by: Yogi Bruno M.D. on 07/14/2023 at 14:12
--- OUTSIDE RECORDS SUMMARY | 2023-07-14 09:27 | XMS_ITS | CCD ---
Author Organization [facility] Care Team Providers Care Cafeteria Food Server Name Role Phone Kevin Brewer Unavailable Unavailable Unavailable Unavailable Unavailable Kevin Brewer Primary Care Provider [phone] Carine DELGADO, Yin R Unavailable KEVIN BREWER Primary Care Physician [phone] Unavailable Unavailable Rodriguezuinbrad II, Parveen Wilder Referring [...] Care Unavai Kevin Mclain Primary Care Provider Carine DELGADO, Yin R Unavailable [phone] DANIELLA, DR KEVIN Scott Primary Care Unavailable NADEREAmanda, DR KEVIN Scott Admitting Unavailable NADERER, DR KEVIN Scott Attending Unavailable NADEREAmanda, DR KEVIN Scott Consulting Unavailable YOVANAEREAmanda, DR KEVIN Scott Primary Care Unavailable ENGELER, DR BOAZ [...] (1 source) tamsulosin Drug Allergy 05-31-2021 [facility] Repository Medications Current Medications Medication Drug [...] Active Start: 01-14-2022 take 1 capsule by [facility] once daily in the morning dilTIAZem HCl [...] Start: 09-28-2019 take 1 capsule by [facility] once daily in the morning dilTIAZem HCl [...] Start: 08-09-2021 take 1 capsule by [facility] once daily tamsulosin (Flomax) 0.4 mg 24 [...] Start: 03-07-2021 take 2 tablets by [facility] at bedtime as needed for pain acetaminophen [...] on above: Take 1 capsule by mo [facility] twice daily. 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 [employer]: www.cancer.org ? [employer]: www.auanet.org Contact a health care [...] adds flu (more content not included)... Normal [facility] Urology Office/Clinic Noteon 05-11-2023 Urology Office/Clinic Note [...] [facility] [address], [place] [address] [phone] Additional Instructions: PSA in 6 mos and [...] Prostate ca (more content not included)... Normal [facility] Comment on above: Result Comment: Elec tronically Signed By: Yin GROVE MD.br\Date and Time Signed: 05/11/23 10:34 EDT\.br\Electronically Co-Signed By: Kimberly Nash.br\Date and Time Co-Signed: 05/11/23 10:32 EDT CNOVon 04-07-2023 CNOV Office Visit (RADTSA ) -------- ANSELMOLUIS ZUÑIGA ([id number]) 1950 M Date Time Provider Department 04/07/23 1:15 PM Demond HIGH During your visit today, we recorded the following information about you: Temperature Pulse Respiration Blood pressure 97.9 degrees 80/minute 16/minute 139/83 Weight 149.2 kg Demond High MD 04/15/2023 3:32 PM Signed Radiation Oncology - Follow Up Note PATIENT NAME: Luis Luis PATIENT DIAGNOSIS: Prostate adenocarcinoma, initial PSA 4.3, biopsy [place] score 3 + 4 = 7 (grade [...] ASSESSMENT/PLAN: Prostate adenocarcinoma, initial PSA 4.3, biopsy [place] score 3 + 4 = 7 (grade group 2), clinical stage T2a, N0, M0, stage IIB [T1-T2, N0, M0, PSA <20, GG 2] (AJCC 8th ed.), s/p TRUS Random and MRI fusion biopsy. PSA remains undetectable. No postradiation related issues. Plan see patient back in one year for further postradiation follow-up. Signed by: Demond High MD cc: Kevin Brewer MD ([facility]) [address] [place] [id number] Portions of the above note extracted and edited from previous visit as well as active information included in the EMR. Kelly Guo LPN 04/15/2023 3:32 PM Signed AUA=12 Referring Provider: Demond HIGH [[id number]] Allergies As of Date: 04/07/2023 (No Known Allergies) Date Reviewed: 04/07/2023 Reviewed by: Kelly Guo LPN - Fully Assessed Reason for Visit: Prostate Cancer [590] Primary Visit Diagnosis:Malignant neoplasm of prostate (HCC) [C61] Order(s):PSA (OUTSIDE) [3326832] Order #: [id number] PSA/PROSTSPECAG DIAG [SQPSA] Order #: [id number] FUTURE Prescriptions as of 04/15/2023 - naproxen [...] for Encounter Date Provider Department Center 04/07/2023 [id number] HIGH [facility] Encounter Status:Closed by Demond HIGH on 04/15/23 Normal [facility] Lab Reportson 04-01-2023 Lab Reports [id number] F Normal [facility] ECG 12 Leadon 02-10-2023 Normal sinus rhythm Right bundle branch block left anterior fascicular block Bifascicular block Cannot exclude age-indeterminate inferior infarct QTc 443 ms [facility] Work Phone: CNOVon 09-30-2022 CNOV Office Visit (RADTSA ) -------- LUIS LUIS ([id number]) 1950 M Date Time Provider Department 09/30/22 [...] DIAGNOSIS: Prostate adenocarcinoma, initial PSA 4.3, biopsy [place] score 3 + 4 = 7 (grade [...] Demond High MD cc: Kevin Brewer MD ([facility]) [address] [place] [address] Portions of the above note extracted and edited from previous visit as well as active information included in the EMR. Referring Provider: Demond HIGH [[id number]] Allergies As of Date: 09/30/2022 (No Known Allergies) Date Reviewed: 09/30/2022 Reviewed by: Naida Jacobo RN - Fully Assessed Reason for Visit: Prostate Cancer [590] Primary Visit Diagnosis:Malignant neoplasm of prostate (HCC) [C61] Order(s):PSA (OUTSIDE) [[id number]] Order #: [id number] PSA/PROSTSPECAG DIAG [SQPSA] Order #: [id number] FUTURE Prescriptions as of 10/03/2022 - naproxen [...] for Encounter Date Provider Department Center 09/30/2022 [id number] HIGH [facility] Encounter Status:Closed by Demond HIGH on 10/03/22 Normal [facility] Lab Reportson 09-09-2022 Lab Reports [id number]: 127 Normal [facility] Ambulatory Visit Summaryon 0 09-08-2022 Ambulatory Visit Summary LUIS LUIS :1950 Visit Date:09/08/2022 Ambulatory Visit Instructions Your Diagnosis Prostate cancer BPH with urinary obstruction Family history of prostate cancer Tests Performed Urnls Dip Stick Auto w/o Microscopy POC 11077 Your Care Team Attending Physician - CARINE [...] Yin GROVE MD Where: [facility] Normal [facility] Patient Educationon 09-09-19 Patient Education Urology Benign [...] Follow these instructions at home: ? Take falf-yox-kicfsrm and prescription medicines only as told by [...] the medicine (more content not included)... Normal [facility] Urology Office/Clinic Noteon 09-08-2022 Urology Office/Clinic Note [...] [facility] [address] [place] [address] [phone] Additional Instructions: PSA Patient Education Benign Prostatic [...] lifetime) To (more content not included)... Normal [facility] Comment on above: Result Comment: Elec tronically Signed By: Yin GROVE MD\.br\Date and Time Signed: 09/08/22 12:22 EDT\.br\Electronically Co-Signed By: Kimberly Nash.br\Date and Time Co-Signed: 09/08/22 12:20 EDT CBC AUTO DIFFon 07-02-2022 BASO # 0.1 103/ul Normal 0.0-0.1 [facility] Comment on above: Performed By: #### C BC #### [facility] [address] [place] [address] Dr. Shama Nyalor Basophils/100 WBC (Bld) 0.8 % Normal 0.2-2.0 [facility] Comment on above: Performed By: #### C BC #### [facility] [address] [place] [address] Dr. Shama Naylor EO # 0.1 103/ul Normal 0.0-0.7 [facility] Comment on above: Performed By: #### C BC #### [facility] [address] [place] [address] Dr. Shama Naylor Eosinophils/100 WBC (Bld) 2.0 % Normal 0.9-7.0 [facility] Comment on above: Performed By: #### C BC #### [facility] [address] [place] [address] Dr. Shama Naylor Erythrocyte distribution width (RBC) [Ratio] 13.6 % Normal 11.0-15.0 [facility] Comment on above: Performed By: #### C BC #### [facility] [address] [place] [address] Dr. Shama Naylor Hematocrit (Bld) [Volume fraction] 40.0 % Critically low 42.0-54.0 [facility] Comment on above: Performed By: #### C BC #### [facility] [address] [place] [address] Dr. Shama Naylor Hemoglobin (Bld) [Mass/Vol] 13.6 g/dL Critically low 14.0-18.0 [facility] Comment on above: Performed By: #### C BC #### [facility] [address] [place] [address] Dr. Shama Naylor IG # 0.02 10e3/ul Normal 0.00-0.03 [facility] Comment on above: Performed By: #### C BC #### [facility] [address] [place] [address] Dr. Shama Naylor IG % 0.3 % Normal 0.0-0.5 [facility] Comment on above: Performed By: #### C BC #### [facility] [address] [place] [address] Dr. Shama Naylor LYMPH # 1.6 103/ul Normal 1.2-3.8 [facility] Comment on above: Performed By: #### C BC #### [facility] [address] [place] [address] Dr. Shama Naylor Lymphocytes/100 WBC (Bld) 26.0 % Normal 20.5-60.0 [facility] Comment on above: Performed By: #### C BC #### [facility] [address] [place] [address] Dr. Shama Naylor MANUAL DIFF REQ NO Normal [facility] Comment on above: Performed By: #### C BC #### [facility] [address] [place] [address] Dr. Shama Naylor MCH (RBC) [Entitic mass] 30.8 pg Normal 25.9-34.0 [facility] Comment on above: Performed By: #### C BC #### [facility] [address] [place] [address] Dr. Shama Naylor MCHC (RBC) [Mass/Vol] 34.0 g/dL Normal 29.9-35.2 [facility] Comment on above: Performed By: #### C BC #### [facility] [address] [place] [address] Dr. Shama Naylor MCV (RBC) [Entitic vol] 90.7 fL Normal 80.0-94.0 [facility] Comment on above: Performed By: #### C BC #### [facility] [address] [place] [address] Dr. Shama Naylor MONO # 0.4 103/ul Normal 0.3-0.8 [facility] Comment on above: Performed By: #### C BC #### [facility] [address] [place] [address] Dr. Shama Naylor Monocytes/100 WBC (Bld) 6.1 % Normal 1.7-12.0 [facility] Comment on above: Performed By: #### C BC #### [facility] [address] [address] [address] Shama Naylor NEUT # 3.9 103/ul Normal 1.4-6.5 [facility] Comment on above: Performed By: #### C BC #### [facility] [address] [address] [address] Shama Naylor Neutrophils/100 WBC (Bld) 64.8 % Normal 43.0-75.0 [facility] Comment on above: Performed By: #### C BC #### [facility] [address] [address] [address] Shama Naylor Platelet mean volume (Bld) [Entitic vol] 10.3 fL Normal 9.5-13.5 [facility] Comment on above: Performed By: #### C BC #### [facility] [address] [place] [address] Dr. Shama Naylor PLT 165 103/ul Normal 150-450 [facility] Comment on above: Performed By: #### C BC #### [facility] [address] [place] [address] Dr. Shama Naylor RBC 4.41 106/ul Critically low 4.70-6.10 [facility] Comment on above: Performed By: #### C BC #### [facility] [address] [place] [address] Dr. Shama Naylor WBC 6.0 103/ul Normal 4.0-11.0 [facility] Comment on above: Performed By: #### C BC #### [facility] [address] [place] [address] Dr. Shama Naylor LIPID PROFILEon 07-02-2022 CHOL-HDL RATIO NORM SEE BELOW Normal [facility] Comment on above: Result Comment: 3.3 - 4.4 LOW RISK 4.4 - 7.1 AVERAGE RISK 7.1 - 11.0 MODERATE RISK >11.0 HIGH RISK Performed By: #### L IPID, BMP, LIVER #### [facility] [address] [place] [address] Dr. Shama Naylor Cholesterol [Mass/Vol] 157 mg/dL Normal <=200 [facility] Comment on above: Performed By: #### L IPID, BMP, LIVER #### [facility] [address] [address] [address] Shama Naylor Cholesterol in HDL [Mass/Vol] 58 mg/dL Normal 40-60 [facility] Comment on above: Performed By: #### L IPID, BMP, LIVER #### [facility] [address] [address] [address] Shama Naylor Cholesterol in LDL [Mass/Vol] 81.8 mg/dL Normal [facility] Comment on above: Performed By: #### L IPID, BMP, LIVER #### [facility] [address] [address] [address] Shama Naylor Cholesterol.total /Cholesterol in HDL [Mass ratio] 2.7 {ratio} Normal [facility] Comment on above: Performed By: #### L IPID, BMP, LIVER #### [facility] [address] [address] [address] Shama Naylor HDL NORMAL > or = 60 mg/dl - LO W CARDIOVASCULAR RISK <40 mg/dl - HIGH CARDIOVASCULAR RISK Normal [facility] Comment on above: Performed By: #### L IPID, BMP, LIVER #### [facility] [address] [address] [address] Shama Naylor LDL CALC NORMAL SEE BELOW Normal [facility] Comment on above: Result Comment: <100 mg/dl OPTIMAL 100 - 129 mg/dl NEAR OR ABOVE OPTIMAL 130 - 159 mg/dl BORDERLINE HIGH 160 - 189 mg/dl HIGH >190 mg/dl VERY HIGH Performed By: #### L IPID, BMP, LIVER #### [facility] [address] [address] [address] Shama Naylor Triglyceride [Mass/Vol] 86 mg/dL Normal <=150 [facility] Comment on above: Performed By: #### L IPID, BMP, LIVER #### [facility] [address] [address] [address] Shama Naylor VLDL CALC 17.2 mg/dL Normal [facility] Comment on above: Performed By: #### L IPID, BMP, LIVER #### [facility] [address] [place] [address] Dr. Shama Naylor LIVER PROFILEon 07-02-2022 Albumin [Mass/Vol] 3.3 g/dL Critically low 3.4-5.0 [facility] Comment on above: Performed By: #### L IPID, BMP, LIVER #### [facility] [address] [place] [address] Dr. Shama Naylor Albumin/Globulin [Mass ratio] 1.0 {ratio} Normal [facility] Comment on above: Performed By: #### L IPID, BMP, LIVER #### [facility] [address] [place] [address] Dr. Shama Naylor ALP [Catalytic activity/Vol] 61 U/L Normal 46-116 [facility] Comment on above: Performed By: #### L IPID, BMP, LIVER #### [facility] [address] [place] [address] Dr. Shama Naylor ALT [Catalytic activity/Vol] 38 U/L Normal 16-63 [facility] Comment on above: Performed By: #### L IPID, BMP, LIVER #### [facility] [address] [place] [address] Dr. Shama Naylor AST [Catalytic activity/Vol] 14 U/L Critically low 15-37 [facility] Comment on above: Performed By: #### L IPID, BMP, LIVER #### [facility] [address] [place] [address] Dr. Shama Naylor BILI, CONJUGATED 0.1 mg/dL Normal 0.0-0.2 [facility] Comment on above: Performed By: #### L IPID, BMP, LIVER #### [facility] [address] [place] [address] Dr. Shama Naylor Bilirubin [Mass/Vol] 0.4 mg/dL Normal 0.2-1.0 [facility] Comment on above: Performed By: #### L IPID, BMP, LIVER #### [facility] [address] [place] [address] Dr. Shama Naylor Globulin (S) [Mass/Vol] 3.3 g/dL Normal [facility] Comment on above: Performed By: #### L IPID, BMP, LIVER #### [facility] [address] [place] [address] Dr. Shama Naylor Protein [Mass/Vol] 6.6 g/dL Normal 6.4-8.2 [facility] Comment on above: Performed By: #### L IPID, BMP, LIVER #### [facility] [address] [place] [address] Dr. Shama Naylor PROF CHEM 8 (BAS METB)on Anion gap [Moles/Vol] 9.6 mmol/L Normal [facility] Comment on above: Performed By: #### L IPID, BMP, LIVER #### [facility] [address] [place] [address] Dr. Shama Naylor Calcium [Mass/Vol] 8.8 mg/dL Normal 8.5-10.1 [facility] Comment on above: Performed By: #### L IPID, BMP, LIVER #### [facility] [address] [place] [address] Dr. Shama Naylor Chloride [Moles/Vol] 107 mmol/L Normal 98-107 [facility] Comment on above: Performed By: #### L IPID, BMP, LIVER #### [facility] [address] [place] [address] Dr. Shama Naylor CO2 [Moles/Vol] 28.3 mmol/L Normal 21.0-32.0 [facility] Comment on above: Performed By: #### L IPID, BMP, LIVER #### [facility] [address] [place] [address] Dr. Shama Naylor Creatinine [Mass/Vol] 1.03 mg/dL Normal 0.70-1.30 [facility] Comment on above: Performed By: #### L IPID, BMP, LIVER #### [facility] [address] [place] [address] Dr. Shama Naylor EGFR-AF AFGHAN >60 Normal >=60 [facility] Comment on above: Performed By: #### L IPID, BMP, LIVER #### [facility] [address] [address] [address] Shama Naylor EGFR-NON AF AFGHAN >60 Normal >=60 [facility] Comment on above: Performed By: #### L IPID, BMP, LIVER #### [facility] [address] [address] [address] Shama Naylor Glucose [Mass/Vol] 103 mg/dL Normal 74-106 [facility] Comment on above: Performed By: #### L IPID, BMP, LIVER #### [facility] [address] [address] [address] Shama Naylor Potassium [Moles/Vol] 3.9 mmol/L Normal 3.5-5.1 [facility] Comment on above: Performed By: #### L IPID, BMP, LIVER #### [facility] [address] [place] [address] Dr. Shama Naylor Sodium [Moles/Vol] 141 mmol/L Normal 136-145 [facility] Comment on above: Performed By: #### L IPID, BMP, LIVER #### [facility] [address] [address] [address] Shama Naylor Urea nitrogen [Mass/Vol] 14.0 mg/dL Normal 7.0-18.0 [facility] Comment on above: Performed By: #### L IPID, BMP, LIVER #### [facility] [address] [place] [address] Dr. Shama Naylor Urea nitrogen/Creatini ne [Mass ratio] 13.6 mg/mg Normal [facility] Comment on above: Performed By: #### L IPID, BMP, LIVER #### [facility] [address] [place] [address] Dr. Shama Naylor Office Visit (Cardiology)on 02-11-2022 Follow-up visit Diagnoses/Problems Assessed Paroxysmal SVT (supraventricular tachycardia) (427.0) (I47.1) Hypertension (401.9) (I10) HLD (hyperlipidemia) (272.4) (E78.5) Morbid obesity with BMI of 40.0-44.9, adult (278.01,V85.41) (E66.01,Z68.41) Former smoker (V15.82) (Z87.891) Quit in Orders Morbid obesity with BMI of 40.0-44.9, adult Healthy Weight Tips; Status:Complete; Done: 18Ltq5512 Some eating tips that can help you lose weight.; Status:Complete; Done: 07Hhf2355 Paroxysmal SVT (supraventricular tachycardia) IO EKG Electrocardiogram- 12 Lead; Status:Complete; Done: 06Uco4522 SocHx: Former smoker Tobacco Use Screening; Status:Complete; Done: 26Drl7869 Patient Instructions Please bring all medicines, vitamins, [...] negative for complaint. Vitals Vital Signs Recorded: 39Sdc2100 11:05AM Heart Rate73, Apical Viuhrqyh875, LUE, Sitting Ttiwkgqom13, LUE, Sitting Height6 ft 2 in Ohxujn289 lb BMI Ximydyuqxk03.57 kg/m2 BSA Calculated2.64 Tobacco Useb) No PHQ-2 [...] Feb 11 2022 5:56PM EST (Author) Normal [employer] Tobacco Screening.on Adult depression screening assessment No [facility] 250 DO Work Phone: Fall risk assessment a) No falls within the last year [facility] 250 DO Work Phone: Tobacco use status [facility] b) No [facility] 250 DO Work Phone: Falls Risk Screeningon 08-12 Fall risk assessment a) No falls within the last year [facility] 250 DO Work Phone: Office Visit [...] Weight Tips; Status:Complete - Retrospective Authorization; Done: 31Uux3432 SocHx: Former smoker Tobacco Use Screening; Status:Complete; Done: 99Mxb9261 Unlinked Stop: Aspirin 81 MG Oral Tablet [...] negative for complaint. Vitals Vital Signs Recorded: 70Weo4200 01:46PM Heart Rate72, R Radial Iqvuiprx405, RUE, Sitting Pawtjfmph10, RUE, Sitting Height6 ft 2 in Fvfltp237 lb BMI Vuyztjzrmz47.67 kg/m2 BSA Calculated2.61 Tobacco Useb) No Fall [...] a) No falls within the last year -[facility] 250 DO Work Phone: Tobacco use status [facility] b) No [facility] 250 DO Work Phone: Blood Urea Nitrogenon 2020 Urea nitrogen [Mass/Vol] 14 mg/dL Normal 9- [facility] Comment on above: Order Comment: STAT FOR MRI Performed By: #### C REBARRY BUN #### [place] [address] [place] Creatinineon 01-30-2021 Creatinine [Mass/Vol] 0.98 mg/dL Normal 0.64-1.27 [facility] Comment on above: Order Comment: STAT FOR MRI Performed By: #### C REAT BUN #### [address] Creatinine Clr Calc Pharmacy 102.93 [facility] Comment on above: Order Comment: STAT FOR MRI Result Comment: PERF ORMED BY: [place] [address] PATHOLOGIST NUT PACKER NILDA PAUL M.D. Performed By: #### C REBARRY BUN #### [address] Estimated GFR ( Zulma > 60 [facility] Comment on above: Order Comment: STAT FOR MRI Result Comment: GFR estimated reference range: According to KDOQI guidelines, <60 ml/min/1.73m2 is sufficient to diagnose a patient with chronic kidney disease. Performed By: #### C REAT, BUN #### [address] Estimated GFR (Non- Am > 60 [facility] Comment on above: Order Comment: STAT FOR MRI Performed By: #### C REAT BUN #### [address] [place] [address] [facility] MR prostate wo/w conon 01-30 MR prostate wo/w con [facility] [address] [place] [address] [place] [address] MRI Report Signed Patient: Luis Luis MR#: [id number] 2028 : 1950 Acct:[id number] Age/Sex: 70 / M ADM Date: 01/30/21 Loc: MR Room: Type: [facility] Attending Dr: Yin Grove MD Ordering Provider: [...] PM COT by: Zachery Verma MD Diplomate, [employer] Report Completed: Jan 30, [...] STAFF 01/30/21 1352 Signed By: 01/30/21 1358 [facility] CARDIAC STRESS/REST INJE CTIONon 11-29-2019 [facility] CARDIAC STRESS/REST INJECTION Patient Name: LUIS LUIS STUDY: MYOCARDIAL PERFUSION STRESS TEST WITH LEXISCAN Performing facility: [facility], [address] [place] [address], [address], [place] [address] [facility] Provider: Mary Tam RN, COSTUMING SUPERVISOR PCP: Dr. Julianna Brewer Supervising provider: Sunday Rai DO, [facility] INDICATION: Chest Pain; HISTORY: Gender: M; Age: 69 y/o ; Height: 187.96 cm; Weight: 980.3751080 kg. High Cholesterol; HTN; Palpitations; Chest Pain; SOB; Quit smoking 40 years ago. COMPARISON: No comparison. ACCESSION NUMBER(S): [id number]; [id number]; [id number] ORDERING CLINICIAN: MARY TAM TECHNIQUE: TWO DAY [...] Electronically signed by: JAMIL JARRELL MD Normal [facility] Vital Signs Date Time Vital Sign Value Performing Clinician Facility 04-07-2023 13:06-0500 Body temperature 97.9 [degF] SARAVANAN High MD Work Phone: [facility] 04-07-2023 13:06-0500 Body weight 149.2 kg SARAVANAN High MD Work Phone: [facility] 04-07-2023 13:06-0500 Diastolic blood pressure 83 mm[Hg] SARAVANAN High MD Work Phone: [facility] 04-07-2023 13:06-0500 Heart rate 80 /min SARAVANAN High MD Work Phone: [facility] 04-07-2023 13:06-0500 Respiratory rate 16 /min SARAVANAN High MD Work Phone: [facility] 04-07-2023 13:06-0500 SaO2% (BldA) [Mass fraction] 96 % SARAVANAN High MD Work Phone: [facility] 04-07-2023 13:06-0500 Systolic blood pressure 139 mm[Hg] SARAVANAN High MD Work Phone: [facility] 02-10-2023 11:10-0500 Body height 188 cm Parveen Multani MD Work Phone: [facility] 02-10-2023 11:10-0500 Body mass index (BMI) [Ratio] 41.6 kg/m2 Parveen Multani MD Work Phone: [facility] 02-10-2023 11:10-0500 Body weight 146.97 kg Parveen Multani MD Work Phone: [facility] 02-10-2023 11:10-0500 Diastolic blood pressure 84 mm[Hg] Parveen Multani MD Work Phone: [facility] 02-10-2023 11:10-0500 Heart rate 67 /min Parveen Multani MD Work Phone: [facility] 02-10-2023 11:10-0500 Systolic blood pressure 132 mm[Hg] Parveen Multani MD Work Phone: [facility] 09-30-2022 13:55-0400 Body temperature 96.69 [degF] SARAVANAN High MD Work Phone: [facility] 09-30-2022 13:55-0400 Body weight 144.97 kg SARAVANAN High MD Work Phone: [facility] 09-30-2022 13:55-0400 Diastolic blood pressure 85 mm[Hg] SARAVANAN High MD Work Phone: [facility] 09-30-2022 13:55-0400 Heart rate 92 /min SARAVANAN High MD Work Phone: [facility] 09-30-2022 13:55-0400 Respiratory rate 18 /min SARAVANAN High MD Work Phone: [facility] 09-30-2022 13:55-0400 SaO2% (BldA) [Mass fraction] 94 % SARAVANAN High MD Work Phone: [facility] 09-30-2022 13:55-0400 Systolic blood pressure 143 mm[Hg] SARAVANAN High MD Work Phone: [facility] 09-08-2022 10:50-0400 Blood Pressure Location Yin GROVE [facility] 09-08-2022 10:50-0400 Diastolic blood pressure 73 mm[Hg] Yin GROVE [facility] 09-08-2022 10:50-0400 Heart rate 72 /min Yin GROVE [facility] 09-08-2022 10:50-0400 Respiratory rate 16 /min Yin GROVE [facility] 09-08-2022 10:50-0400 Systolic blood pressure 132 mm[Hg] Yin GROVE [facility] 04-01-2022 14:41-0500 Body temperature 97.2 [degF] SARAVANAN High MD Work Phone: [facility] 04-01-2022 14:41-0500 Body weight 142.79 kg SARAVANAN High MD Work Phone: [facility] 04-01-2022 14:41-0500 Diastolic blood pressure 90 mm[Hg] SARAVANAN High MD Work Phone: [facility] 04-01-2022 14:41-0500 Heart rate 82 /min SARAVANAN High MD Work Phone: [facility] 04-01-2022 14:41-0500 Respiratory rate 18 /min SARAVANAN High MD Work Phone: [facility] 04-01-2022 14:41-0500 SaO2% (BldA) [Mass fraction] 98 % SARAVANAN High MD Work Phone: [facility] 04-01-2022 14:41-0500 Systolic blood pressure 159 mm[Hg] SARAVANAN High MD Work Phone: [facility] 03-21-2022 11:25-0500 Blood Pressure Location Yin [facility] 03-21-2022 11:25-0500 Diastolic blood pressure 80 mm[Hg] Yin GROVE [facility] 03-21-2022 11:25-0500 Heart rate 76 /min Yin GROVE [facility] 03-21-2022 11:25-0500 Respiratory rate 16 /min Yin GROVE [facility] 03-21-2022 11:25-0500 Systolic blood pressure 138 mm[Hg] Yin GROVE [facility] 02-11-2022 11:05-0500 Body height 187.96 cm Kevin Brewer Work Phone: [facility] DO Work Phone: 02-11-2022 11:05-0500 Body mass index (BMI) [Ratio] 40.57 kg/m2 Kevin Lovelaceerer Work Phone: [facility] DO Work Phone: 02-11-2022 11:05-0500 Body surface area Derived from formula 2.64 m2 Kevin Lovelaceerer Work Phone: [facility] 250 DO Work Phone: 02-11-2022 11:05-0500 Body weight 143.34 kg Kevin Lovelaceerer Work Phone: [facility] 250 DO Work Phone: 02-11-2022 11:05-0500 Diastolic blood pressure 78 mm[Hg] Kevin Lovelaceerer Work Phone: [facility] 250 DO Work Phone: 02-11-2022 11:05-0500 Heart rate 73 /min Kevin Lovelaceerer Work Phone: [facility] DO Work Phone: 02-11-2022 11:05-0500 Systolic blood pressure 132 mm[Hg] Kevin Lovelaceerer Work Phone: [facility] DO Work Phone: 09-30-2021 10:54-0400 Blood Pressure Location [facility] 09-30-2021 10:54-0400 Diastolic blood pressure 84 mm[Hg] Yin GR[facility] 09-30-2021 10:54-0400 Heart rate 75 /min Yin GR[facility] 09-30-2021 10:54-0400 Respiratory rate 16 /min Yin [facility] 09-30-2021 10:54-0400 Systolic blood pressure 136 mm[Hg] Yin GR[facility] 08-14-2021 09:47-0400 Body temperature 96.69 [degF] SARAVANAN High MD Work Phone: [facility] 08-14-2021 09:47-0400 Body weight 141.98 kg SARAVANAN High MD Work Phone: [facility] 08-14-2021 09:47-0400 Diastolic blood pressure 82 mm[Hg] SARAVANAN High MD Work Phone: [facility] 08-14-2021 09:47-0400 Heart rate 82 /min SARAVANAN High MD Work Phone: [facility] 08-14-2021 09:47-0400 Respiratory rate 20 /min SARAVANAN High MD Work Phone: [facility] 08-14-2021 09:47-0400 SaO2% (BldA) [Mass fraction] 94 % SARAVANAN High MD Work Phone: [facility] 08-14-2021 09:47-0400 Systolic blood pressure 131 mm[Hg] SARAVANAN High MD Work Phone: [facility] 08-12-2021 10:15-0400 Body height 187.96 cm Kevin Brewer Work Phone: [facility] DO Work Phone: 08-12-2021 10:15-0400 Body mass index (BMI) [Ratio] 39.93 kg/m2 Kevin Brewer Work Phone: [facility] DO Work Phone: 08-12-2021 10:15-0400 Body surface area Derived from formula 2.62 m2 Kevin Scott Naderer Work Phone: [facility] DO Work Phone: 08-12-2021 10:15-0400 Body weight 141.07 kg Kevin Sonia Naderer Work Phone: [facility] DO Work Phone: 08-12-2021 10:15-0400 Diastolic blood pressure 80 mm[Hg] Kevin Sonia Naderer Work Phone: [facility] 250 DO Work Phone: 08-12-2021 10:15-0400 Heart rate 69 /min Kevin Sonia Naderer Work Phone: [facility] DO Work Phone: 08-12-2021 10:15-0400 Systolic blood pressure 130 mm[Hg] Kevin Scott Naderer Work Phone: [facility] DO Work Phone: 08-09-2021 09:42-0400 Blood Pressure Location [facility] 08-09-2021 09:42-0400 Diastolic blood pressure 80 mm[Hg] Yin GR[facility] 08-09-2021 09:42-0400 Heart rate 75 /min Yin [facility] 08-09-2021 09:42-0400 Respiratory rate 16 /min [facility] 08-09-2021 09:42-0400 Systolic blood pressure 134 mm[Hg] [facility] 02-15-2021 13:46-0500 Body height 187.96 cm Kevin Scott Naderer Work Phone: [facility] 250 DO Work Phone: 02-15-2021 13:46-0500 Body mass index (BMI) [Ratio] 39.67 kg/m2 Kevin Scott Naderer Work Phone: [facility] 250 DO Work Phone: 02-15-2021 13:46-0500 Body surface area Derived from formula 2.61 m2 Kevin Scott Naderer Work Phone: [facility] 250 DO Work Phone: 02-15-2021 13:46-0500 Body weight 140.16 kg Kevin Scott Naderer Work Phone: [facility] DO Work Phone: 02-15-2021 13:46-0500 Diastolic blood pressure 80 mm[Hg] Kevin Scott Naderer Work Phone: [facility] DO Work Phone: 02-15-2021 13:46-0500 Heart rate 72 /min Kevin Scott Naderer Work Phone: [facility] DO Work Phone: 02-15-2021 13:46-0500 Systolic blood pressure 118 mm[Hg] Kevin Scott Naderer Work Phone: [facility] DO Work Phone: Encounters Encounter Date Encounter Type Care Provider Facility Start: 05-13-2024 ambulatory Yin GROVE Facili ty:[facility] Start: 06-29-2023 End: 06-29-2023 ambulatory KEVIN BREWER Not Available Start: 05-11-2023 End: 05-12-2023 ambulatory Yin GROVE Facility:[facility] Start: 05-11-2023 End: 05-11-2023 Patient encounter procedure Yin [facility] Start: 04-07-2023 End: 04-07-2023 ambulatory Demond HIGH Facility:[facility] Start: 04-07-2023 End: 04-07-2023 Patient encounter procedure Demond High MD Work Phone: Radiation Oncology Comment on above: Malignant neoplasm o f prostate (HCC) (Primary Dx) Start: 02-10-2023 End: 02-10-2023 [facility] Start: 02-10-2023 End: 02-10-2023 Office outpatient visit 25 minutes Parveen Multani MD Work Phone: [facility] Comment on above: Paroxysmal SVT (supr aventricular tachycardia) (Primary Dx); Primary hypertension; Mixed hyperlipidemia; Morbid obesity with BMI of 40.0-44.9, adult (CMS/HCC); Bifascicular block Start: 09-30-2022 End: 09-30-2022 ambulatory KEVIN Sonia DANIELLA Facility:[facility] Start: 09-30-2022 End: 09-30-2022 Patient encounter procedure Demond High MD Work Phone: Radiation Oncology Comment on above: Malignant neoplasm o f prostate (HCC) (Primary Dx) Start: 09-08-2022 End: 09-09-2022 ambulatory Yin GROVE Facility:[facility] Start: 09-08-2022 End: 09-08-2022 Patient encounter procedure Yin GR[facility] Start: 07-25-2022 Rx Renewal [facility] Work Phone: Start: 07-02-2022 End: 07-03-[address] KEVIN BREWER Facility:[facility] Start: 04-07-2022 Rx Renewal [facility] Brewer [facility] Work Phone: Start: 04-01-2022 End: 04-01-2022 ambulatory Yancy Oneill APRN.COSTUMING SUPERVISOR Work Phone: Hematology/Oncology Comment on above: Prostate cancer (HCC ) Start: 04-01-2022 End: 04-01-2022 Patient encounter procedure Yancy Oneill APRN.COSTUMING SUPERVISOR Work Phone: Vocation Comment on above: Malignant neoplasm o f prostate (HCC) (Primary Dx) Start: 03-21-2022 End: 03-21-2022 Patient encounter procedure Yin GR[facility] Start: 03-11-2022 End: 03-12-[address] KEVIN BREWER Facility:[facility] Start: 02-11-2022 ambulatory Parveen Multani II Facility: Start: 02-11-2022 Office outpatient vi sit 15 minutes Keivn Berwer Work Phone: [facility] 250 DO Work Phone: Start: 02-05-2022 Telephone encounter G Chavez High MD Work Phone: Radiation Oncology Comment on above: Future Appointment Start: 01-14-2022 Rx Renewal [facility] Work Phone: Start: 09-30-2021 End: 09-30-2021 Patient encounter procedure Yin GROVE [facility] Start: 09-23-2021 End: 09-24-[address] KEVIN BREWER Facility: Start: 08-14-2021 End: 08-14-2021 Patient encounter procedure Demond High MD Work Phone: Radiation Oncology Comment on above: Malignant neoplasm o f prostate (HCC) (Primary Dx) Start: 08-12-2021 Patient encounter procedure Kevin Brewer Work Phone: [facility] 250 DO Work Phone: Start: 08-12-2021 ambulatory Parveen Multani II Facility: Start: 08-09-2021 End: 08-09-2021 Patient encounter procedure Yin GROVE [facility] Start: 08-05-2021 Telephone encounter G Chavez High MD Work Phone: Radiation Oncology Comment on above: FYI-No Action Needed ; Covid19 Concern Start: 07-25-2021 Patient encounter procedure Demond High MD Work Phone: [employer]ocation Start: 07-25-2021 Radiation Oncology Note Demond High MD Work Phone: Radiation Oncology Comment on above: Simulation Note Start: 07-24-2021 KASSIE Brewer [facility] Work Phone: Start: 07-16-2021 End: 07-17-[address] KEVIN BREWER Facility: Start: 07-04-2021 End: 07-04-2021 Patient encounter procedure Abdulaziz DAWSON [facility] Start: 06-27-2021 End: 06-28-2021 Patient encounter [...] Rx Renewal Kevin A Gunjanr Work Phone: [facility] 250 DO Work Phone: Start: 02-15-2021 ambulatory Parveen Multani II Facility: Start: 02-15-2021 Office outpatient vi sit 15 minutes Kevin Hollinsr Work Phone: [facility] 250 DO Work Phone: Start: 01-22-2021 Rx Renewal Kevin A Gunjanr Work Phone: [facility] 250 DO Work Phone: Procedures Date Procedure Procedure Detail Performing Clinician Start: 03-31-2023 PSA screening [facility] Provi kilo Start: 02-10-2023 ECG 12-LEAD PARVEEN PATEL Start: 02-10-2023 Ecg routine ecg w/le ast 12 lds w/i&r Parveen Multani MD Work Phone: Start: 08-29-2022 PSA screening [facility] Provi kilo Start: 03-11-2022 End: 03-11-2022 PSA screening [facility] Provider Comment on above: Performed By: #### P SAD #### [facility] [address] [place] [address] Dr. Shama Naylor Start: 09-23-[address] KEVIN BROOKS Comment on above: Performed By: #### P SAD #### [facility] [address] [address] [address] Shama Naylor Start: 07-16-2021 End: 07-16-2021 PSA screening [facility] Provider Comment on above: Performed By: #### P SAD #### [facility] [address] [place] [address] Dr. Shama Naylor Start: 06-27-2021 Brachytherapy Yin [...] procedure 03/08/2024 9:00 AM EST Office Visit [facility] [address] [place] [address] Parveen Multani MD [address] [place] [address] [facility] Start: 04-07-2023 End: 07-07-2023 Prostate specific Ag [Mass/volume] in Serum or Plasma PSA/PROSTSPECAG DIAG Lab Routine Malignant neoplasm of prostate (HCC) Expected: 04/07/2023, Expires: 07/07/2023 [facility] Work Phone: Comment on above: Expected: 04/07/2023 , Expires: 07/07/2023 Start: 04-02-2023 End: 06-02-2023 Prostate specific Ag [Mass/volume] in Serum or Plasma PSA/PROSTSPECAG DIAG Lab Routine Malignant neoplasm of prostate (HCC) Expected: 04/02/2023 (Approximate), Expires: 06/02/2023 [facility] Work Phone: Comment on above: Expected: 04/02/2023 (Approximate), Expires: 06/02/2023 Start: 03-02-2023 Advance Directive Discussion Advance Directive Discussion [facility] Start: 03-02-2023 Depression Assessment Depression Ass [facility] Start: 02-10-2023 FUV, Provider: Parveen Multani, Status: Pen, Time: 11:00 AM FUV, Provider: Parveen Multani, Status: Pen, Time: 11:00 AM -[facility] 250 DO Work Phone: Start: 10-31-2022 Covid-19 Vaccine () Covid-19 Vaccine () [facility] Start: 10-31-2022 Influenza vaccination [facility] Start: 03-02-2022 ADVANCE DIRECTIVE DISCUSSION ADVANCE DIRECTIVE DISCUSSION [facility] Start: 03-02-2022 DEPRESSION ASSESSMENT DEPRESSION ASS [facility] Start: 02-11-2022 FUV, Provider: Parveen Multani, Status: Pen, Time: 10:50 AM FUV, Provider: Parveen Multani, Status: Pen, Time: 10:50 AM [facility] [employer] 250 DO Work Phone: Start: 10-31-2021 Influenza vaccination C [facility] Start: 04-15-2021 COVID-19 VACCINE (4 - Booster for Pfizer series) COVID-19 VACCINE (4 - Booster for Pfizer series) [facility] Start: 03-02-2021 ADVANCE DIRECTIVE DISCUSSION ADVANCE DIRECTIVE DISCUSSION [facility] Start: 03-02-2021 [facility] Start: 02-15-2021 FUV, Provider: Parveen Multani, Status: Pen, Time: 1:30 PM FUV, Provider: Parveen Multani, Status: Pen, Time: 1:30 PM [facility] 250 DO Work Phone: Start: 02-07-2021 COVID-19 VACCINE (4 - Booster for Pfizer series) COVID-19 VACCINE (4 - Booster for Pfizer series) [facility] Start: 02-07-2021 COVID-19 VACCINE (4 - Pfizer series) COVID-19 VACCINE (4 - Pfizer series) [facility] Start: 07-02-2015 Abdominal aortic aneurysm screening Abdominal Aortic Aneurysm (AAA) Screening [facility] Start: 07-02-2015 Pneumococcal Vaccine : 65+ (1 of 1 - PCV) Pneumococcal Vaccine: 65+ (1 of 1 - PCV) [facility] Start: 07-02-2015 Pneumococcal Vaccine : 65+ Years (1 - PCV) Pneumococcal Vaccine: 65+ Years (1 - PCV) [facility] Start: 07-02-2015 PNEUMOCOCCAL: 65+ (1 - PCV) PNEUMOCOCCAL: 65+ (1 - PCV) [facility] Start: 07-02-2015 PNEUMOVAX AGE 65 AND OVER WITH 5YR LOOKBACK (#1) PNEUMOVAX AGE 65 AND OVER WITH 5YR LOOKBACK (#1) [facility] Start: 2010 RSV Vaccine (1 - 1-d ose 60+ series) RSV Vaccine (1 - 1-dose 60+ series) [facility] Start: 2000 SHINGRIX VACCINE (1 of 2) SHINGRIX VACCINE (1 of 2) [facility] Start: 2000 Zoster Vaccines (1 of 2) Zoste r Vaccines (1 of 2) [facility] Start: 07-02-1995 COLOGUARD (FIT-DNA) COLOGUARD (FIT-D NA) [facility] Start: 07-02-1995 Colonoscopy COLONOSCOPY [facility] Start: 07-02-1995 COLORECTAL CANCER SCREENING COLORECTAL CANCER SCREENING [facility] Start: 07-02-[address] COLONOGRAPHY [facility] Start: 07-02-1995 DIABETES SCREEN [facility] Start: 07-02-1995 Diabetes Screening Diabetes Screenin g [facility] Start: 07-02-1995 FECAL OCCULT BLOOD FECAL OCCULT BLOO D [facility] Start: 07-02-1995 Screening for malign ant neoplasm of colon [facility] Start: 07-02-1995 SIGMOIDOSCOPY [facility]OSCOPY [facility] Start: 1985 Lipid panel Lipid Screening [facility] Start: 1985 LIPID SCREEN LIPID SCREEN [facility] Start: 1972 DTaP/Tdap/Td Vaccine s (1 - Tdap) DTaP/Tdap/Td Vaccines (1 - Tdap) [facility] Start: 1969 SHINGRIX VACCINE (1 of 2) SHINGRIX VACCINE (1 of 2) [facility] Start: 1969 Urine microalbumin profile [facility] Start: 1968 Diabetes mellitus screening Diabetes Screening [facility] Start: 1968 HEPATITIS C SCREENING HEPATITIS C [facility] Start: 1968 Hepatitis C screening Hepatitis C [facility] Start: 1962 Adult depression screening assessment DEPRESSION SCREENING [facility] Start: 1956 PNEUMOCOCCAL: 65+ (1 - PCV) PNEUMOCOCCAL: 65+ (1 - PCV) [facility] Start: 1950 ABDOMINAL AORTIC ANEURYSM SCREENING ABDOMINAL AORTIC ANEURYSM SCREENING [facility] Start: 1950 Abdominal aortic aneurysm screening Abdominal Aortic Aneurysm Screening [facility] Start: 1950 Lipid panel Lipid Panel [facility] Start: 1950 Medicare Annual Well ness Visit Medicare Annual Wellness Visit (AWV) [facility] Start: 1950 Screening for malign ant neoplasm of [facility] Immunizations Immunization Date Immunization Notes Care Provider Concha lopez 11-28-2021 Fluzone High-Dose Quadrivalent 0.7 ML Intramuscular Suspension Prefilled Syringe Kevin Brewer Work Phone: [facility] 250 DO Work Phone: 11-28-2021 influenza virus vaccine, unspecified formulation Yin GROVE [facility] 11-28-2021 influenza, high dose seasonal, preservative-free Parveen Multani MD Work Phone: [facility] Work Phone: 12-13-2020 [email or web address] COVID-19 Vacc 30 MCG/0.3ML Intramuscular Suspension Kevin Hollinsr Work Phone: [facility] 05-19-2020 Pfizer-BioNTech COVID-19 Vacc 30 MCG/0.3ML Intramuscular Suspension Kevin A Naderer Work Phone: [facility] 04-28-2020 Pfizer-BioNTech COVID-19 Vacc 30 MCG/0.3ML Intramuscular Suspension Kevin A Naderer Work Phone: [facility] 03-02-2020 SARS-CoV-2 (COVID-19 ) mRNA BNT-162b2 vax Abdulaziz DAWSON [facility] Comment on above: Result Comment: pt i s fully vaccinated and has received the booster but does not remember the dates 12-14-2019 influenza virus vaccine, unspecified formulation Yin GROVE [facility] 12-14-2019 influenza, injectabl e, quadrivalent, preservative free Kevin A Naderer Work Phone: [facility] DO Work Phone: 12-01-2019 influenza virus vaccine, unspecified formulation Yin GROVE [facility] 12-01-2019 influenza, seasonal, injectable Kevin A Naderer Work Phone: [facility] 250 DO Work Phone: 02-09-2012 influenza virus vaccine, unspecified formulation Yin GROVE [facility] 02-09-2012 influenza, seasonal, injectable Kevin A Naderer [facility]: [facility] Work Phone: Payers Date Payer Category Payer Private Health Insurance [employer] A ETNA MEDICARE SUPPLEMENT [id number] 2020-Present [phone] [address] [address] [place] [address] Indemnity [id number] 2020 Private Health Insurance [id number] 2015 Medicare MEDICARE MEDICAR E A AND B [id number] 2015-Present [phone] [place] [address] Medicare [id number] 2015 Medicare [id number] 1959 Medicare [id number] 1959 Private Health Insurance [facility] [id number] 1950 Unknown [id number] 1950 Unknown [id number] 1950 Unknown [id number] 1950 Unknown [id number] 1950 Unknown [id number] [id number] 1950 Unknown [id number]. 2.593 1950 Unknown [id number]. 2.593 1950 Unknown [id number]. 2.1244 1950 Unknown [id number] [id number]. 2.727 1950 Unknown [id number] [id number]. 2.727 1950 Unknown [id number] [id number]. 2.727 1950 Unknown [id number]. 2.1259 Unknown Social History Date Type Detail Facility Start: 05-20-2021 End: 09-30-2022 Alcohol use Alcohol use [facility] Comment on above: 4 8 oz cups of coffe e/occasional decaf coffee; Quit in 1970s; Start: 04-03-2021 End: 04-07-2023 Tobacco smoking status NHIS Ex-smoker [facility] End: 04-03-1981 History of tobacco use Current smoker [facility] End: 04-03-1981 History of tobacco use Pipe Smoker [facility] End: 04-03-1981 History of tobacco use Cigar Smoker [facility] Start: 04-03-2021 End: 04-07-2023 Tobacco use and exposure Smokeless tobacco non-user [facility] Start: 05-20-2021 End: 04-07-2023 Alcohol intake Current drinker of alcohol (finding) [facility] Start: 04-03-2021 History SDOH Alcohol Comment 2-3 times/wk [facility] Start: 1950 Sex Assigned At Not on file [facility] Start: 06-01-2021 End: 02-10-2023 Exposure to SARS-CoV-2 (event) Not sure [facility] Start: 05-20-2021 End: 09-30-2022 Sex Assigned At Male [facility] [place] Tobacco smoking status No Smokin g Status Entered [facility] Start: 03-21-2022 Tobacco smoking status Never s moked tobacco (finding) [facility] Start: 05-11-2023 Tobacco smoking status Never [facility] End: 03-02-1969 History of tobacco use Cigarette Smoker [facility] Work Phone: Start: 02-06-2023 Alcohol Comment [facility] Work Phone: Functional Status Date Assessment Result Facility 05-11-2023 Functional Status N/A [facility] 09-08-2022 Functional Status N/A [facility] 03-21-2022 Functional Status N/A [facility] 09-30-2021 Functional Status N/A [facility] Clinical Notes 06-11-2021 to 05-11-2023 Kelly [...] treatment? Where to find more information [employer]: www.cancer.org [employer]: www.auanet.org Contact a health care [...] provider. Document Revised: 08/12/2021 Document Reviewed: 08/12/2021 [employer] Patient Education 2022 H-care. Follow Up Care 09/08/2022 12:26:22 With:CARINE DELGADO, Yin Patel, URL Address: [facility] [address] , [place] [phone] When: Unknown Comments:PSA in 6 mos and f/u in 1 yr w/ repeat PSA [facility] [place] 04-07-2023 Note HNO ID: [id number] Author: Demond HIGH MD Service: ? Author [...] Demond High MD cc: Kevin Brewer MD ([facility]) [address] [place] [address] Portions of the above note extracted and edited from previous visit as well as active information included in the EMR. [facility] 04-07-2023 Nurse Note AUA=12 documented in this encounter [facility] 04-07-2023 History of Present illness Narrative Radiation Oncology - Follow Up Note PATIENT NAME: Luis Luis PATIENT DIAGNOSIS: Prostate adenocarcinoma, initial PSA 4.3, biopsy [place] score 3 + 4 = 7 (grade [...] cc: Kevin Brewer MD (Dr) [address] [place] [address] Portions of the above note extracted and edited from previous visit as well as active information included in the EMR. documented in this encounter [facility] 02-10-2023 History of Present illness Narrative Subjective Luis Luis is a 72 y.o. 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 documented in this encounter [facility] Work Phone: 09-30-2022 Note HNO ID: [id number] Author: Demond High MD Service: ? Author [...] Demond High MD cc: Kevin Brewer MD ([facility]) [address] [place] [address] Portions of the above note extracted and edited from previous visit as well as active information included in the EMR. [facility] 09-30-2022 History of Present illness Narrative Radiation [...] ASSESSMENT/PLAN: Prostate adenocarcinoma, initial PSA 4.3, biopsy [place] score 3 + 4 = 7 (grade group 2), clinical stage T2a, N0, M0, stage IIB [T1-T2, N0, M0, PSA <20, GG 2] (AJCC 8th ed.), s/p TRUS Random and MRI fusion biopsy. PSA remains undetectable. No postradiation related issues. Plan see patient back in 6 months for further postradiation follow-up. Signed by: Demond High MD cc: Kevin Brewer MD ([facility]) [address] [place] [phone] Portions of the above note extracted and edited from previous visit as well as active information included in the EMR. documented in this encounter [facility] 09-30-2022 Nurse Note AUA 14 Naida Jacobo RN documented in this encounter [facility] 09-08-2022 Hospital Discharge instructions Patient Education [...] urethra. Follow these instructions at home: Take yzii-ldt-gnwglny and prescription medicines only as told by [...] provider. Document Revised: 09/04/2021 Document Reviewed: 09/04/2021 [employer] Patient Education 2022 H-care. Follow Up Care 03/21/2022 12:44:25 With:CARINE DELGADO, Yin Patel, URL Address: [facility] [address] , [place] [address]- [phone] When:Within 8 Month(s) Comments:PSA [facility] [place] 04-01-2022 History of Present illness Narrative [...] Yancy Oneill APRN.ANNA documented in this encounter [facility] 04-01-2022 History of Present illness Narrative [...] ASSESSMENT/PLAN: Prostate adenocarcinoma, initial PSA 4.3, biopsy [place] score 3 + 4 = 7 (grade [...] Demond High MD cc: Kevin Brewer MD ([facility]) [address] [place] [address] Portions of the above note extracted and edited from previous visit as well as active information included in the EMR. documented in this encounter [facility] 04-01-2022 Nurse Note AUA 14 Naida Jacobo RN documented in this encounter [facility] 03-21-2022 Hospital Discharge instructions Patient Education [...] who: Are older than age 65. Are -Hungarian. Are obese. Have a family history of [...] cells. Follow these instructions at home: Take fyja-unf-eofnvli and prescription medicines only as told by [...] 02/16/2006 Document Revised: 01/29/2018 Document Reviewed: 10/27/2016 [facility] Patient Education 2020 H-care. Follow Up Care 09/30/2021 11:58:37 With:CARINE DELGADO, Yin Patel, URL Address: [address] [place] [address] [place] [address]- When: Unknown Comments:6 mos w/ PSA [facility] 02-06-2022 Miscellaneous Notes Patient has been rescheduled & notified of appointment. Monica Rodríguez Pt has PSA scheduled with Dr Grove in March and would like to postpone his follow up visit with Dr High until after that is done. PSS- please call pt and reschedule. He will be awaiting your call. Naida Jacobo RN documented in this encounter [facility] 09-30-2021 Hospital Discharge instructions Patient Education [...] urethra. Follow these instructions at home: Take eidp-nss-nhbjqhl and prescription medicines only as told by [...] 02/16/2006 Document Revised: 01/11/2019 Document Reviewed: 03/23/2017 [employer] Patient Education 2020 [employer] Follow Up Care 04/01/2021 13:09:22 With:CARINE DELGADO, Yin Patel, URL Address: [facility] [address], [place] [address]- [phone] When:Within 6 Month(s) Comments:w/ PSA [facility] 08-14-2021 Nurse Note AUA 18 Naida Jacobo RN documented in this encounter [facility] 08-14-2021 History of Present illness Narrative Radiation Oncology - Follow Up Note PATIENT NAME: Luis Luis PATIENT DIAGNOSIS: Prostate adenocarcinoma, initial PSA 4.3, biopsy [place] score 3 + 4 = 7 (grade [...] Demond High MD cc: Kevin Brewer MD ([facility]) [address] [place] [phone] documented in this encounter [facility] 08-09-2021 Hospital Discharge instructions Patient Education [...] including vitamins, herbs, eye drops, creams, and uord-xto-ytheoca medicines. Any problems you or family members [...] 07/27/2006 Document Revised: 01/29/2018 Document Reviewed: 02/25/2017 [employer] Patient Education 2020 H-care. Follow Up Care 07/04/2021 11:13:01 With:CARINE DELGADO, Yin Patel, URL Address: [facility] [address] [place] [phone] When: Unknown [facility] 08-05-2021 Miscellaneous Notes Ok to resched Luis called in stating he tested positive for COVID-19 on 08/03/21 and his symptoms started , 08/01/21. He has a scheduled 6wk post implant follow up on 08/08/21. He will call us later in the week to possibly reschedule his follow up. Kelly Guo LPN documented in this encounter [facility] 07-25-2021 History of Present illness Narrative Patient: Luis Luis Date:07/25/2021 [facility] Department of Radiation Oncology [facility] RADIATION ONCOLOGY POST SEED IMPLANT SIMULATION NOTE [...] M.D. 23:26 PM documented in this encounter [facility] 06-27-2021 History of Present illness Narrative Date: 06/27/21 Facility: [facility] Procedure: prostate transperineal brachytherapy implant Sources: [...] High MD (Signed electronically to expedite mailing) [facility] documented in this encounter [facility] 06-11-2021 History of Present illness Narrative [...] Demond High MD documented in this encounter [facility] 06-11-2021 History of Present illness Narrative LUIS LUIS [id number] 06/11/2021 [facility] Department of Radiation Oncology [facility] RADIATION ONCOLOGY SIMULATION NOTE DATE OF SIMULATION: 06/11/2021 MACHINE: [employer] 500 Diagnosis: 185 (Prostate Gland) AREA:Prostate PATIENT POSITION: Supine CONTRAST: None PROTOCOL: None CONCURRENT THERAPY: None FIXATION DEVICE: UTS Stabilization device by [employer]. PROCEDURE: Patient was simulated in exaggerated dorsal lithotomy position. Serial images of the prostate were acquired using TRUS and reconstructed in 3D space. These images were imported into [employer] Prostate planning system where a plan was generated. ASSESSMENT/PLAN: Patient tolerated simulation procedure well. Electronically Signed Chavez High M.D. / LAURA 25:05 PM documented in this encounter [facility] Evaluation + Plan note Future Appointments Appointment Date:08/05/2021 08:45:00 AM Scheduled Provider:Yin GROVE MD Location:[facility] Appointment Type:URO Office Visit Appointment Date:09/30/2021 10:30:00 AM Scheduled Provider:Yin GROVE MD Location:[facility] Appointment Type:URO Office Visit Future Scheduled TestsPT & PTT 03/05/21BUN 03/05/21Creatinine 03/05/21Electrolyte Panel 03/05/21CBC w/ Auto Diff 03/05/21XR Chest 2 Views 03/05/21 [facility] Evaluation + Plan note Future Appointments Appointment Date:09/30/2021 10:30:00 AM Scheduled Provider:Yin GROVE MD Location:[facility] Appointment Type:URO Office Visit Diagnostic Tests PendingPSA Total 08/09/21 Future Scheduled TestsPT & PTT 03/05/21BUN 03/05/21Creatinine 03/05/21Electrolyte Panel 03/05/21CBC w/ Auto Diff 03/05/21XR Chest 2 Views 03/05/21 [facility] Evaluation + Plan note Future Appointments Appointment Date:03/21/2022 11:00:00 AM Scheduled Provider:Yin GROVE MD Location:[facility] Appointment Type:URO Office Visit Diagnostic Tests PendingPSA Total 09/30/21 Future Scheduled TestsPT & PTT 03/05/21BUN 03/05/21Creatinine 03/05/21Electrolyte Panel 03/05/21CBC w/ Auto Diff 03/05/21XR Chest 2 Views 03/05/21 [facility] Evaluation + Plan note Future Appointments Appointment Date:09/08/2022 10:15:00 AM Scheduled Provider:Yin GROVE MD Location:[facility] Appointment Type:URO Office Visit Diagnostic Tests PendingPSA Total 06/30/22 [facility] Evaluation + Plan note Future Appointments Appointment Date:05/11/2023 09:45:00 AM Scheduled Provider:[facility]in [facility]OVE [facility] Type:[facility]O Office Visit Diagnostic Tests PendingPSA Total 09/08/22 [facility] Evaluation + Plan note Future Appointments Appointment Date:05/13/2024 09:45:00 AM Scheduled Provider:Yin GROVE MD Location:[facility] Appointment Type:URO Office Visit Diagnostic Tests PendingPSA Total 05/11/23 [facility] Evaluation note Diagnosis Malignant neoplasm of prostate (HCC)- Primary Malignant neoplasm of prostate [facility] Diagnosis Malignant neoplasm of prostate (HCC)- Primary Malignant neoplasm of prostate [facility] Diagnosis Malignant neoplasm of prostate (HCC)- Primary Malignant neoplasm of prostate [facility] Diagnosis Prostate cancer (HCC) Malignant neoplasm of prostate [facility] Diagnosis Malignant neoplasm of prostate (HCC)- Primary Malignant neoplasm of prostate [facility] Diagnosis Malignant neoplasm of prostate (HCC)- Primary Malignant neoplasm of prostate [facility] Diagnosis Paroxysmal SVT (supraventricular tachycardia)- Primary Primary hypertension Unspecified essential hypertension Mixed hyperlipidemia Morbid obesity with BMI of 40.0-44.9, adult (CMS/HCC) Bifascicular block Other bilateral bundle branch block documented in this encounter [facility] Work Phone: Evaluation note* Diagnosis Malignant neoplasm of prostate (HCC)- Primary Malignant neoplasm of prostate [facility] of [facility] NarrativePatient returns in follow-up [...] diet lifestyle modific ation exercise and weight loss.[facility] [employer] Work Phone: History of Present illness Narrative* [...] merits of diet exercise and weight loss. [facility] [employer] Work Phone: Hospital course Narrative No data available for this section [facility] Hospital Discharge instructions No data available for this section [facility] Progress note No data available for this section [facility] Purpose Family History No Family [...] ECG 12 Lead Parveen Multani MD [address] [facility] [address], [address] [place] [address] Referral ID Status Reason Start Date Expiration Date V isits Requested Visits Authorized [id number] Pending Review 02/10/2023 02/10/2024 1 1 Specialty Diagnoses / Procedures Referred By Contac t Referred To Contact Cardiology Diagnoses Paroxysmal SVT (supraventricular tachycardia) Procedures Follow Up In Cardiology Parveen Multani MD [address] [place] [address] [address], [address] [place] [address] Parveen Multani MD [address] [place] [address] 2, [facility] [address] [place] [address] Referral ID Status Reason Start Date Expiration Date V isits Requested Visits Authorized [id number] Authorized 02/10/2023 02/10/2024 1 1 Additional Source Comments (unrecognized sect ion and content) No Status Records FoundNo Status Records FoundNo Status Records FoundNo Status Records FoundNo Status Records FoundNo Status Records FoundNo Status Records FoundNo Status Records FoundNo Status Records Found INFORMATION SOURCE (unrecogn ized section and content) DATE CREATED AUTHOR 12/03/2019 [facility] DATE CREATED AUTHOR AUTHOR'S ORGANIZ ATION 04/21/2021 [facility] DATE CREATED AUTHOR AUTHOR'S ORGANIZ ATION 02/12/2022 [facility] DATE CREATED AUTHOR AUTHOR'S ORGANIZ ATION 02/12/2022 [employer] DATE CREATED AUTHOR AUTHOR'S ORGANIZ ATION 07/10/2022 [facility] DATE CREATED AUTHOR AUTHOR'S ORGANIZ ATION 02/13/2023 [facility] DATE CREATED AUTHOR AUTHOR'S ORGANIZ ATION 04/17/2023 [facility] DATE CREATED AUTHOR AUTHOR'S ORGANIZ ATION 05/13/2023 [facility] DATE CREATED AUTHOR AUTHOR'S ORGANIZ ATION 06/29/2023 [facility] EPIC Source Comments (unrecognize d section and content) In the event this informatio n is protected by the Federal Confidentiality of Alcohol and Drug Abuse Patient Records regulations: The Federal rules restrict any use of the information to criminally investigate or prosecute any alcohol or drug abuse patient.[facility] the event this information is protected by the Federal Confidentiality of Alcohol and Drug Abuse Patient Records regulations: The Federal rules restrict any use of the information to criminally investigate or prosecute any alcohol or drug abuse patient.[facility] the event this information is protected by the Federal Confidentiality of Alcohol and Drug Abuse Patient Records regulations: The Federal rules restrict any use of the information to criminally investigate or prosecute any alcohol or drug abuse patient.[facility] the event this information is protected by the Federal Confidentiality of Alcohol and Drug Abuse Patient Records regulations: The Federal rules restrict any use of the information to criminally investigate or prosecute any alcohol or drug abuse patient.[facility] the event this information is protected by the Federal Confidentiality of Alcohol and Drug Abuse Patient Records regulations: The Federal rules restrict any use of the information to criminally investigate or prosecute any alcohol or drug abuse patient.[facility] the event this information is protected by the Federal Confidentiality of Alcohol and Drug Abuse Patient Records regulations: The Federal rules restrict any use of the information to criminally investigate or prosecute any alcohol or drug abuse patient.[facility] the event this information is protected by the Federal Confidentiality of Alcohol and Drug Abuse Patient Records regulations: The Federal rules restrict any use of the information to criminally investigate or prosecute any alcohol or drug abuse patient.[facility] the event this information is protected by the Federal Confidentiality of Alcohol and Drug Abuse Patient Records regulations: The Federal rules restrict any use of the information to criminally investigate or prosecute any alcohol or drug abuse patient.[facility] the event this information is protected by the Federal Confidentiality of Alcohol and Drug Abuse Patient Records regulations: The Federal rules restrict any use of the information to criminally investigate or prosecute any alcohol or drug abuse patient.[facility] the event this information is protected by the Federal Confidentiality of Alcohol and Drug Abuse Patient Records regulations: The Federal rules restrict any use of the information to criminally investigate or prosecute any alcohol or drug abuse patient.[facility] the event this information is protected by the Federal Confidentiality of Alcohol and Drug Abuse Patient Records regulations: The Federal rules restrict any use of the information to criminally investigate or prosecute any alcohol or drug abuse patient.[facility] Care Teams (unrecognized sec tion and content) [employer] Relationship Specialty Start Date End Date Kevin Brewer [address] [place] [address] PCP - General Family Practice 03/22/21 Yin Grove MD [address] [place] [address] Referring Urology 03/22/21 [employer] Specialty Start Date End Date Kevin Brewer [address] [place] [address] PCP - General Family Practice 03/22/21 Yin Grove MD [address] [place] [address] Referring Urology 03/22/21 [employer] Relationship Specialty Start Date End Date Kevin Brewer [address] [place] [address] PCP - General Family Practice 03/22/21 Yin Grove MD [address] [place] [address] Referring Urology 03/22/21 [employer] Relationship Specialty Start Date End Date Kevin Brewer [address] [place] [address] PCP - General Family Practice 03/22/21 Yin Grove MD [address] [place] [address] Referring Urology 03/22/21 [employer] Relationship Specialty Start Date End Date Kevin Brewer [address] [place] [address] PCP - General Family Practice 03/22/21 Yin Grove MD [address] [place] [address] Referring Urology 03/22/21 [employer] Relationship Specialty Start Date End Date Kevin Brewer [address] [place] [address] PCP - General Family Medicine 03/22/21 Yin Grove MD [address] [place] [address] Referring Urology 03/22/21 [employer] Relationship Specialty Start Date End Date Kevin Brewer [address] [place] [address] PCP - General Family Medicine 03/22/21 Yin Grove MD [address] [place] [address] Referring Urology 03/22/21 [employer] Relationship Specialty Start Date End Date Kevin Brewer [address] [place] [address] PCP - General Family Medicine 03/22/21 Yin Grove MD [address] [place] [address] Referring Urology 03/22/21 [employer] Relationship Specialty Start Date End Date Kevin Brewer S[place] [address] [place] [address] PCP - General Family Medicine 03/22/21 Yin Grove MD [address] [place] [address] Referring Urology 03/22/21 [employer] Relationship Specialty Start Date End Date Kevin Brewer MD [address] [place] [address] PCP - General Family Medicine 02/05/23 [employer] Relationship Specialty Start Date End Date Kevin Brewer [address] [place] [address] PCP - General Family Medicine 03/22/21 Yin Grove MD [address] [place] [address] Referring Urology 03/22/21 Reason for Visit (unrecogniz ed section and content) Specialty Diagnoses / Procedures Referred By Contac t Referred To Contact Radiation Oncology / RADIATION ONCOLOGY Diagnoses Malignant neoplasm of prostate [facility] Implant at [facility] Procedures SEED IMPLANT Demond High MD [address] [place] [address] [place] [address] Demond High MD [address] [place] [address] [place] [address] Referral ID Status Reason Start Date Expiration Date V isits Requested Visits Authorized [id number] Authorized 06/27/2021 03/01/2022 99 99 Reason Comments FYI-No Action Needed Covid19 Concern Reason Comments Prostate Cancer Reason Comments Future Appointment Reason Comments Annual Exam Specialty Diagnoses / Procedures Referred By Contac t Referred To Contact Diagnoses Paroxysmal SVT (supraventricular tachycardia) Procedures ECG 12 Lead Parveen Multani MD [address] [facility] [address], [facility] [address] [place] [address] Referral ID Status Reason Start Date Expiration Date V isits Requested Visits Authorized [id number] Pending Review 02/10/2023 02/10/2024 1 1 FOR [...] BE BASED ON THE PRIMARY CLINICAL RECORDS. [facility] [employer] [facility]. provides no warranty or guarantee of the accuracy or completeness of information in this document.
== END 2023-07-14 09:04 | disposition home or self-care (01) ==
LOC: CARD 09:03
PROVIDERS: PCP Family Medicine; Visit Provider Family Medicine
DX: R60.0 Localized edema (principal); R06.02 Shortness of breath
CPT/HCPCS: 93306

== ENCOUNTER 2023-08-17 09:52 | Outpatient (OUT) | payer MEDICARE, SELFPAY | END 2023-08-17 09:53 | disposition home or self-care (01) | LOC: PST 09:52 | PROVIDERS: PCP Family Medicine; Visit Provider Surgery | DX: Z01.818 Encounter for other preprocedural examination (principal); Z12.11 Encounter for screening for malignant neoplasm of colon ==

== ENCOUNTER 2023-08-25 10:19 | Day surgery (SDC) | payer MEDICARE, SELFPAY ==
--- OUTSIDE RECORDS SUMMARY | 2023-08-25 10:23 | XMS_ITS | CCD ---
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 Kevin Vega Primary Care Rachaelvai Kevin Mclain Primary Care Provider Yin Grove MD R Unavailable DR KEVIN BREWER Primary Care Unavailable NADEREAmanda, DR KEVIN Scott Admitting Unavailable NADERER, DR KEVIN Scott Attending Unavailable NADERER, DR KEVIN Scott Consulting Unavailable NADERER, DR KEVIN Scott Primary Care Unavailable ENGELER, DR BOAZ Denney Admitting Unavailable ENGELER, DR BOAZ Denney Attending Unavailable ENGELER, DR BOAZ Denney Consulting Unavailable NADERER, DR KEVIN Scott Primary Care Unavailable YIN GROVE Admitting Unavailable YIN GROVE Attending Unavailable YIN GROVE Consulting Unavailable NADERER, DR KEVIN Scott Primary Care Unavailable YIN [...] GROVE Attending Unavailable KEVIN BREWER Attending Unavailable [place] Attending Unavailable Allergies Allergy Classification Reported Allergen(s) Allergy Type Date of Onset Reaction(s) Facility (1 source) tamsulosin Drug Allergy 05-31-[address] [facility] Repository Medications Current Medications Medication Drug [...] Active Start: 01-14-2022 take 1 capsule by [facility] once daily in the morning dilTIAZem HCl ER Coated Beads 180 MG Oral Capsule Extended Release 24 Hour TAKE 1 CAPSULE BY MOUTH EVERY DAY IN THE MORNING Quantity: 90 Refills: 3 Ordered: 14-Jan-2022 Parveen Multani MD Start : 14-Jan-2022 Active Start: 09-28-2019 [facility]four [facility] dilTIAZem LA (CARDIZEM LA) 240 mg 24 hr tablet Take 240 mg by mouth. 0 09/28/2019 Active Start: 09-28-2019 take 1 capsule by [facility] once daily in the morning dilTIAZem HCl [...] Start: 08-09-2021 take 1 capsule by mo uth once daily tamsulosin (Flomax) 0.4 mg 24 [...] 03-07-2021 take 2 tablets by mo [facility] at bedtime as needed for pain acetaminophen [...] above: Take 1 capsule by mo [facility] twice daily. naproxen sodium 220 mg oral capsule (2 sources) Nonsteroidal Anti-inflammatory Drug naproxen sodium (ALEVE) 220 mg cap Take by mouth. 0 Active Comment on above: Take by mouth. propafenone hydrochloride 150 mg oral tablet (16 sources) Antiarrhythmic Start: 05-26-2 022 take 1 tablet by mouth three times [...] 02-06-2023 Episodic Other aftercare (1 source) Other [facility] (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; Translations: [OTH [facility] CURRENT DRUG THERAPY] Onset: 07-09-2022 Episodic Other [...] Yin GROVE MD Where: [facility] Patient Educationon 05-11-19 24 Patient Education Oncology Prostate Cancer Screening Prostate [...] Where to find more information ? The [place] [employer]: www.cancer.org ? [place] [employer]: www.auanet.org Contact a health care [...] adds flu (more content not included)... Normal [facility] Urology Office/Clinic Noteon 05-11-2023 Urology Office/Clinic [...] Yin Patel, URL [facility] [address] [place] [address]- [phone] Additional Instructions: PSA in 6 mos and [...] Prostate ca (more content not included)... Normal [facility] Comment on above: Result Comment: Elec tronically Signed By: Yin GROVE MD\.br\Date and Time Signed: 05/11/23 10:34 EDT\.br\Electronically Co-Signed By: Kimberly Nash\.br\Date and Time Co-Signed: 05/11/23 10:32 EDT CNOVon 04-07-2023 CNOV Office Visit (RADTSA ) -------- LUIS LUIS ([id number]) 1950 Date Time Provider Department 04/07/23 1:15 PM [...] ASSESSMENT/PLAN: Prostate adenocarcinoma, initial PSA 4.3, biopsy Harrogate score 3 + 4 = 7 (grade group 2), clinical stage T2a, N0, M0, stage IIB [T1-T2, N0, M0, PSA <20, GG 2] (AJCC 8th ed.), s/p TRUS Random and MRI fusion biopsy. PSA remains undetectable. No postradiation related issues. Plan see patient back in one year for further postradiation follow-up. Signed by: Demond High MD cc: Kevin Brewer MD (Dr) [address] [place] [address] Portions of the above note extracted and edited from previous visit as well as active information included in the EMR. Kelly Guo LPN 04/15/2023 3:32 PM Signed AUA=12 Referring Provider: Demond HIGH [[id number]] Allergies As of Date: 04/07/2023 (No Known Allergies) Date Reviewed: 04/07/2023 Reviewed by: Kelly Guo LPN - Fully Assessed Reason for Visit: Prostate Cancer [590] Primary Visit Diagnosis:Malignant neoplasm of prostate (HCC) [C61] Order(s):PSA (OUTSIDE) [[id number]] Order #: [id number] PSA/PROSTSPECAG DIAG [SQPSA] Order #: [id number] FUTURE Prescriptions as of 04/15/2023 - naproxen [...] for Encounter Date Provider Department Center 04/07/2023 [id number] HIGH [facility] Encounter Status:Closed by Demond HIGH on 04/15/23 Normal [facility] Lab Reportson 04-01-2023 Lab Reports [id number] F Normal [facility] ECG 12 Leadon 02-10-2023 Normal sinus rhythm Right bundle branch block left anterior fascicular block Bifascicular block Cannot exclude age-indeterminate inferior infarct QTc 443 ms [facility] Work Phone: CNOVon 09-30-2022 CNOV Office Visit (RADTSA ) -------- LUIS LUIS ([id number]) 1950 M Date Time Provider Department 09/30/22 [...] Demond High MD cc: Kevin Brewer MD ([facility]) [address] [place] [address] Portions of the above note extracted and edited from previous visit as well as active information included in the EMR. Referring Provider: Demond HIGH [[id number]] Allergies As of Date: 09/30/2022 (No Known Allergies) Date Reviewed: 09/30/2022 Reviewed by: Naida Jacobo RN - Fully Assessed Reason for Visit: Prostate Cancer [590] Primary Visit Diagnosis:Malignant neoplasm of prostate (HCC) [C61] Order(s):PSA (OUTSIDE) [[id number]] Order #: [id number] PSA/PROSTSPECAG DIAG [SQPSA] Order #: [id number] FUTURE Prescriptions as of 10/03/2022 - naproxen [...] for Encounter Date Provider Department Center 09/30/2022 [id number] HIGH [facility] Encounter Status:Closed by Demond HIGH on 10/03/22 Normal [facility] Lab Reportson 09-09-2022 Lab Reports [id number]: 127 Normal [facility] Ambulatory Visit Summaryon 0 09-08-2022 Ambulatory Visit Summary LUIS LUIS :1950 Visit Date:09/08/2022 Ambulatory Visit Instructions Your Diagnosis Prostate cancer BPH with urinary obstruction Family history of prostate cancer Tests Performed Urnls Dip Stick Auto w/o Microscopy POC [id number] Your Care Team Attending Physician - CARINE DELGADO, Yin Patel Primary Care Physician - DANIELLA DELGADO, KEVIN This Is Your Medications List Contact prescribing [...] What to do next Scheduled Follow-Up Appointments Thursday. 2023 9:45 AM EDT With: CARINE DELGADO, Yin Patel Where: [facility] Patient Educationon 09-09-19 Patient Education [...] Follow these instructions at home: ? Take yvwg-ddo-tevdjer and prescription medicines only as told by [...] the medicine (more content not included)... Normal [facility] Urology Office/Clinic Noteon 09-08-2022 Urology Office/Clinic [...] brothers. [1] Follow-up With When Contact Information Yin GROVE MD, URAyden In 8 months [facility] [address] [place] [address] [phone] Additional Instructions: PSA Patient Education Benign Prostatic [...] lifetime) To (more content not included)... Normal [facility] Comment on above: Result Comment: Elec tronically Signed By: Yin GROVE MD\.br\Date and Time Signed: 09/08/22 12:22 EDT\.br\Electronically Co-Signed By: Kimberly Nash\.br\Date and Time Co-Signed: 09/08/22 12:20 EDT CBC AUTO DIFFon 07-02-2022 BASO # 0.1 103/ul Normal 0.0-0.1 [facility] Comment on above: Performed By: #### C BC #### [facility] [address] [place] [address] Dr. Shama Naylor Basophils/100 WBC (Bld) 0.8 % Normal 0.2-2.0 [facility] Comment on above: Performed By: #### C BC #### [facility] [address] [place] [address] Dr. Shama Naylor EO # 0.1 103/ul Normal 0.0-0.7 [facility] Comment on above: Performed By: #### C BC #### [facility] [address] [place] [address] Dr. Shama Naylor Eosinophils/100 WBC (Bld) 2.0 % Normal 0.9-7.0 [facility] Comment on above: Performed By: #### C BC #### [facility] [address] [place] [address] Dr. Shama Naylor Erythrocyte distribution width (RBC) [Ratio] 13.6 % Normal 11.0-15.0 [facility] Comment on above: Performed By: #### C BC #### [facility] [address] [place] [address] Dr. Shama Naylor Hematocrit (Bld) [Volume fraction] 40.0 % Critically low 42.0-54.0 [facility] Comment on above: Performed By: #### C BC #### [facility] [address] [place] [address] Dr. Shama Naylor Hemoglobin (Bld) [Mass/Vol] 13.6 g/dL Critically low 14.0-18.0 [facility] Comment on above: Performed By: #### C BC #### [facility] [address] [place] [address] Dr. Shama Naylor IG # 0.02 10e3/ul Normal 0.00-0.03 [facility] Comment on above: Performed By: #### C BC #### [facility] [address] [place] [address] Dr. Shama Naylor IG % 0.3 % Normal 0.0-0.5 [facility] Comment on above: Performed By: #### C BC #### [facility] [address] [place] [address] Dr. Shama Naylor LYMPH # 1.6 103/ul Normal 1.2-3.8 [facility] Comment on above: Performed By: #### C BC #### [facility] [address] [place] [address] Dr. Shama Naylor Lymphocytes/100 WBC (Bld) 26.0 % Normal 20.5-60.0 [facility] Comment on above: Performed By: #### C BC #### [facility] [address] [place] [address] Dr. Shama Naylor MANUAL DIFF REQ NO Normal [facility] Comment on above: Performed By: #### C BC #### [facility] [address] [place] [address] Dr. Shama Naylor MCH (RBC) [Entitic mass] 30.8 pg Normal 25.9-34.0 [facility] Comment on above: Performed By: #### C BC #### [facility] [address] [place] [address] Dr. Shama Naylor MCHC (RBC) [Mass/Vol] 34.0 g/dL Normal 29.9-35.2 [facility] Comment on above: Performed By: #### C BC #### [facility] [address] [place] [address] Dr. Shama Naylor MCV (RBC) [Entitic vol] 90.7 fL Normal 80.0-94.0 [facility] Comment on above: Performed By: #### C BC #### [facility] [address] [place] [address] Dr. Shama Naylor MONO # 0.4 103/ul Normal 0.3-0.8 [facility] Comment on above: Performed By: #### C BC #### [facility] [address] [place] [address] Dr. Shama Naylor Monocytes/100 WBC (Bld) 6.1 % Normal 1.7-12.0 [facility] Comment on above: Performed By: #### C BC #### [facility] [address] [place] [address] Dr. Shama Naylor NEUT # 3.9 103/ul Normal 1.4-6.5 [facility] Comment on above: Performed By: #### C BC #### [facility] [address] [address] [address] Shama Naylor Neutrophils/100 WBC (Bld) 64.8 % Normal 43.0-75.0 [facility] Comment on above: Performed By: #### C BC #### [facility] [address] [place] [address] Dr. Shama Naylor Platelet mean volume (Bld) [Entitic vol] 10.3 fL Normal 9.5-13.5 [facility] Comment on above: Performed By: #### C BC #### [facility] [address] [place] [address] Dr. Shama Naylor PLT 165 103/ul Normal 150-450 [facility] Comment on above: Performed By: #### C BC #### [facility] [address] [place] [address] Dr. Shama Naylor RBC 4.41 106/ul Critically low 4.70-6.10 [facility] Comment on above: Performed By: #### C BC #### [facility] [address] [place] [address] Dr. Shama Naylor WBC 6.0 103/ul Normal 4.0-11.0 [facility] Comment on above: Performed By: #### C BC #### [facility] [address] [place] [address] Dr. Shama Naylor LIPID PROFILEon 07-02-2022 CHOL-HDL RATIO NORM SEE BELOW Normal [facility] Comment on above: Result Comment: 3.3 - 4.4 LOW RISK 4.4 - 7.1 AVERAGE RISK 7.1 - 11.0 MODERATE RISK >11.0 HIGH RISK Performed By: #### L IPID, BMP, LIVER #### [facility] [address] [place], [place] [id number] Dr. Shama Naylor Cholesterol [Mass/Vol] 157 mg/dL Normal <=200 [facility] Comment on above: Performed By: #### L IPID, BMP, LIVER #### [facility] [address] [address] [address] Shama Naylor Cholesterol in HDL [Mass/Vol] 58 mg/dL Normal 40-60 [facility] Comment on above: Performed By: #### L IPID, BMP, LIVER #### [facility] [address] [address] [address] Shama Naylor Cholesterol in LDL [Mass/Vol] 81.8 mg/dL Normal [facility] Comment on above: Performed By: #### L IPID, BMP, LIVER #### [facility] [address] [place] [address] Dr. Shama Naylor Cholesterol.total /Cholesterol in HDL [Mass ratio] 2.7 {ratio} Normal [facility] Comment on above: Performed By: #### L IPID, BMP, LIVER #### [facility] [address] [address] [address] Shama Naylor HDL NORMAL > or = 60 mg/dl - LO W CARDIOVASCULAR RISK <40 mg/dl - HIGH CARDIOVASCULAR RISK Normal [facility] Comment on above: Performed By: #### L IPID, BMP, LIVER #### [facility] [address] [place] [address] Dr. Shama Naylor LDL CALC NORMAL SEE BELOW Normal [facility] Comment on above: Result Comment: <100 mg/dl OPTIMAL 100 - 129 mg/dl NEAR OR ABOVE OPTIMAL 130 - 159 mg/dl BORDERLINE HIGH 160 - 189 mg/dl HIGH >190 mg/dl VERY HIGH Performed By: #### L IPID, BMP, LIVER #### [facility] [address] [address] [address] Shama Naylor Triglyceride [Mass/Vol] 86 mg/dL Normal <=150 [facility] Comment on above: Performed By: #### L IPID, BMP, LIVER #### [facility] [address] [address] [address] Shama Naylor VLDL CALC 17.2 mg/dL Normal [facility] Comment on above: Performed By: #### L IPID, BMP, LIVER #### [facility] [address] [place] [address] Dr. Shama Naylor LIVER PROFILEon 07-02-2022 Albumin [Mass/Vol] 3.3 g/dL Critically low 3.4-5.0 [facility] Comment on above: Performed By: #### L IPID, BMP, LIVER #### [facility] [address] [place] [address] Dr. Shama Naylor Albumin/Globulin [Mass ratio] 1.0 {ratio} Normal [facility] Comment on above: Performed By: #### L IPID, BMP, LIVER #### [facility] [address] [place] [address] Dr. Shama Naylor ALP [Catalytic activity/Vol] 61 U/L Normal 46-116 [facility] Comment on above: Performed By: #### L IPID, BMP, LIVER #### [facility] [address] [place] [address] Dr. Shama Naylor ALT [Catalytic activity/Vol] 38 U/L Normal 16-63 [facility] Comment on above: Performed By: #### L IPID, BMP, LIVER #### [facility] [address] [place] [address] Dr. Shama Naylor AST [Catalytic activity/Vol] 14 U/L Critically low 15-37 [facility] Comment on above: Performed By: #### L IPID, BMP, LIVER #### [facility] [address] [place] [address] Dr. Shama Naylor BILI, CONJUGATED 0.1 mg/dL Normal 0.0-0.2 [facility] Comment on above: Performed By: #### L IPID, BMP, LIVER #### [facility] [address] [place] [address] Dr. Shama Naylor Bilirubin [Mass/Vol] 0.4 mg/dL Normal 0.2-1.0 [facility] Comment on above: Performed By: #### L IPID, BMP, LIVER #### [facility] [address] [address] [address] Shama Naylor Globulin (S) [Mass/Vol] 3.3 g/dL Normal [facility] Comment on above: Performed By: #### L IPID, BMP, LIVER #### [facility] [address] [address] [address] Shama Naylor Protein [Mass/Vol] 6.6 g/dL Normal 6.4-8.[address] [facility] Comment on above: Performed By: #### L IPID, BMP, LIVER #### [facility] [address] [address] [address] Shama Naylor PROF CHEM 8 (BAS METB)on Anion gap [Moles/Vol] 9.6 mmol/L Normal [facility] Comment on above: Performed By: #### L IPID, BMP, LIVER #### [facility] [address] [place] [address] Dr. Shama Naylor Calcium [Mass/Vol] 8.8 mg/dL Normal 8.5-10.[address] [facility] Comment on above: Performed By: #### L IPID, BMP, LIVER #### [facility] [address] [address] [address] Shama Naylor Chloride [Moles/Vol] 107 mmol/L Normal 98-[address] [facility] Comment on above: Performed By: #### L IPID, BMP, LIVER #### [facility] [address] [address] [address] Shama Naylor CO2 [Moles/Vol] 28.3 mmol/L Normal 21.0-32.0 [facility] Comment on above: Performed By: #### L IPID, BMP, LIVER #### [facility] [address] [address] [address] Shama Naylor Creatinine [Mass/Vol] 1.03 mg/dL Normal 0.70-1.30 [facility] Comment on above: Performed By: #### L IPID, BMP, LIVER #### [facility] [address] [address] [address] Shama Naylor EGFR-AF CITIZEN [place] >60 Normal >=60 [facility] Comment on above: Performed By: #### L IPID, BMP, LIVER #### [facility] [address] [place] [address] Dr. Shama Naylor EGFR-NON AF CITIZEN [place] >60 Normal >=60 [facility] Comment on above: Performed By: #### L IPID, BMP, LIVER #### [facility] [address] [place] [address] Dr. Shama Naylor Glucose [Mass/Vol] 103 mg/dL Normal 74-106 [facility] Comment on above: Performed By: #### L IPID, BMP, LIVER #### [facility] [address] [place] [address] Dr. Shama Naylor Potassium [Moles/Vol] 3.9 mmol/L Normal 3.5-5.1 [facility] Comment on above: Performed By: #### L IPID, BMP, LIVER #### [facility] [address] [place] [address] Dr. Shama Naylor Sodium [Moles/Vol] 141 mmol/L Normal 136-145 [facility] Comment on above: Performed By: #### L IPID, BMP, LIVER #### [facility] [address] [place] [address] Dr. Shama Naylor Urea nitrogen [Mass/Vol] 14.0 mg/dL Normal 7.0-18.0 [facility] Comment on above: Performed By: #### L IPID, BMP, LIVER #### [facility] [address] [place] [address] Dr. Shama Naylor Urea nitrogen/Creatini ne [Mass ratio] 13.6 mg/mg Normal [facility] Comment on above: Performed By: #### L IPID, BMP, LIVER #### [facility] [address] [place] [address] Dr. Shama Naylor Office Visit (Cardiology)on 02-11-2022 Follow-up visit Diagnoses/Problems Assessed Paroxysmal SVT (supraventricular tachycardia) (427.0) (I47.1) Hypertension (401.9) (I10) HLD (hyperlipidemia) (272.4) (E78.5) Morbid obesity with BMI of 40.0-44.9, adult (278.01,V85.41) (E66.01,Z68.41) Former smoker (V15.82) (Z87.891) Quit in Orders Morbid obesity with BMI of 40.0-44.9, adult Healthy Weight Tips; Status:Complete; Done: 55Nld3008 Some eating tips that can help you lose weight.; Status:Complete; Done: 71Qbr3262 Paroxysmal SVT (supraventricular tachycardia) IO EKG Electrocardiogram- 12 Lead; Status:Complete; Done: 96Kso5163 SocHx: Former smoker Tobacco Use Screening; Status:Complete; Done: 16Ngr8447 Patient Instructions Please bring all medicines, vitamins, [...] coffee Former smoker (V15.82) (Z87.891) Quit in 1970s No illicit drug use Social alcohol use [...] negative for complaint. Vitals Vital Signs Recorded: 26Qyc5694 11:05AM Heart Rate73, Apical Cnpaefkl873, LUE, Sitting Xxwkvvzdt50, LUE, Sitting Height6 ft 2 in Mqxeci444 lb BMI Wivfkciwph58.57 kg/m2 BSA Calculated2.64 Tobacco Useb) No PHQ-2 [...] Feb 11 2022 5:56PM EST (Author) Normal [place] Tobacco Screening.on 022 Adult depression screening assessment No [facility] 250 DO Work Phone: Fall risk assessment a) No falls within the last year [facility] 250 DO Work Phone: Tobacco use status [facility] b) No [facility] 250 DO Work Phone: Falls Risk Screeningon 08-12 Fall risk assessment a) No falls within the last year [facility] 250 DO Work Phone: Office Visit (Cardiology)on [...] Weight Tips; Status:Complete - Retrospective Authorization; Done: 80Zdk9668 SocHx: Former smoker Tobacco Use Screening; Status:Complete; Done: 95Max9899 Unlinked Stop: Aspirin 81 MG Oral Tablet Delayed Release Patient Instructions By signing my name below, I, Shiloh Hernandez LPN, Scribe, attest that this documentation has been prepared under the direction and in the presence of Dr. Parveen Multani MD. All medical record entries made by the [facility] were at my direction and personally dictated [...] negative for complaint. Vitals Vital Signs Recorded: 60Zzc8993 01:46PM Heart Rate72, R Radial Vgjbdhcf164, RUE, Sitting Xmrurgtmc30, RUE, Sitting Height6 ft 2 in Pojhal258 lb BMI Mjgrpbgvpl71.67 kg/m2 BSA Calculated2.61 Tobacco Useb) No Fall [...] a) No falls within the last year -[facility] 250 DO Work Phone: Tobacco use status [facility] b) No -[facility] 250 DO Work Phone: Blood Urea Nitrogenon 2020 Urea nitrogen [Mass/Vol] 14 mg/dL Normal 9- [facility] Comment on above: Order Comment: STAT FOR MRI Performed By: #### C REAT BUN #### [place] [address] [place] Creatinineon 01-30-2021 Creatinine [Mass/Vol] 0.98 mg/dL Normal 0.64-1.27 [facility] Comment on above: Order Comment: STAT FOR MRI Performed By: #### C REAT, BUN #### [place] [address] [place] [facility] 102.[address] [facility] Comment on above: Order Comment: STAT FOR MRI Result Comment: PERF ORMED BY: [place] [address] PATHOLOGIST CREAMERY WORKER NILDA PAUL M.D. Performed By: #### C REAT, BUN #### [address] Estimated GFR ( Zulma > [address] [facility] Comment on above: Order Comment: STAT FOR MRI Result Comment: GFR estimated reference range: According to KDOQI guidelines, <60 ml/min/1.73m2 is sufficient to diagnose a patient with chronic kidney disease. Performed By: #### C REAT, BUN #### [place] [address] [place] Estimated GFR (Non- Am > [address] [facility] Comment on above: Order Comment: STAT FOR MRI Performed By: #### C REAT, BUN #### [facility] [address] [id number] [facility] MR prostate wo/w conon 01-30 MR prostate wo/w con [facility] Main Wall [address] [id number] MRI Report Signed Patient: Luis Luis MR#: [id number] 2028 : 1950 Acct:[id number] Age/Sex: 70 / M ADM Date: 01/30/21 Loc: MR Room: Type: [facility] Attending Dr: Yin Grove MD Ordering Provider: [...] PM COT by: Zachery Verma MD Diplomate, [place] [employer] Report Completed: Jan 30, [...] STAFF 01/30/21 1352 Signed By: 01/30/21 1358 [facility] CARDIAC STRESS/REST INJE CTIONon 11-29-2019 [facility] CARDIAC STRESS/REST INJECTION Patient Name: LUIS LUIS STUDY: MYOCARDIAL PERFUSION STRESS TEST WITH LEXISCAN Performing facility: [facility], [address] [place] [address], [address], [place] [address] [facility] Provider: Mary Tam RN, CENTRAL SUPPLY TECHNICIAN SUPERVISOR PCP: Dr. Julianna Brewer Supervising provider: Sunday Rai DO, [facility] INDICATION: Chest Pain; HISTORY: Gender: M; Age: 69 y/o ; Height: 187.96 cm; Weight: 571.2990868 kg. High Cholesterol; HTN; Palpitations; Chest Pain; SOB; Quit smoking 40 years ago. COMPARISON: No comparison. ACCESSION NUMBER(S): [id number]; [id number]; [id number] ORDERING CLINICIAN: MARY TAM TECHNIQUE: TWO DAY [...] comparison. Electronically signed by: JAMIL JARRELL MD [facility] Vital Signs Date Time Vital Sign Value Performing Clinician Facility 04-07-2023 13:06-0500 Body temperature 97.9 [degF] SARAVANAN High MD Work Phone: [facility] 04-07-2023 13:06-0500 Body weight 149.2 kg SARAVANAN High MD Work Phone: [facility] 04-07-2023 13:06-0500 Diastolic blood pressure 83 mm[Hg] SARAVANAN High MD Work Phone: [facility] 04-07-2023 13:06-0500 Heart rate 80 /min SARAVANAN High MD Work Phone: [facility] 04-07-2023 13:06-0500 Respiratory rate 16 /min SARAVANAN High MD Work Phone: [facility] 04-07-2023 13:06-0500 SaO2% (BldA) [Mass fraction] 96 % SARAVANAN High MD Work Phone: [facility] 04-07-2023 13:06-0500 Systolic blood pressure 139 mm[Hg] SARAVANAN High MD Work Phone: [facility] 02-10-2023 11:10-0500 Body height 188 cm Parveen Multani MD Work Phone: [facility] 02-10-2023 11:10-0500 Body mass index (BMI) [Ratio] 41.6 kg/m2 Parveen Multani MD Work Phone: [facility] 02-10-2023 11:10-0500 Body weight 146.97 kg Parveen Multani MD Work Phone: [facility] 02-10-2023 11:10-0500 Diastolic blood pressure 84 mm[Hg] Parveen Multani MD Work Phone: [facility] 02-10-2023 11:10-0500 Heart rate 67 /min Parveen Multani MD Work Phone: [facility] 02-10-2023 11:10-0500 Systolic blood pressure 132 mm[Hg] Parveen Multani MD Work Phone: [facility] 09-30-2022 13:55-0400 Body temperature 96.69 [degF] SARAVANAN High MD Work Phone: [facility] 09-30-2022 13:55-0400 Body weight 144.97 kg SARAVANAN High MD Work Phone: [facility] 09-30-2022 13:55-0400 Diastolic blood pressure 85 mm[Hg] SARAVANAN High MD Work Phone: [facility] 09-30-2022 13:55-0400 Heart rate 92 /min SARAVANAN High MD Work Phone: [facility] 09-30-2022 13:55-0400 Respiratory rate 18 /min SARAVANAN High MD Work Phone: [facility] 09-30-2022 13:55-0400 SaO2% (BldA) [Mass fraction] 94 % SARAVANAN High MD Work Phone: [facility] 09-30-2022 13:55-0400 Systolic blood pressure 143 mm[Hg] SARAVANAN High MD Work Phone: [facility] 09-08-2022 10:50-0400 Blood Pressure Location Yin GROVE [facility] 09-08-2022 10:50-0400 Diastolic blood pressure 73 mm[Hg] Yin GROVE [facility] 09-08-2022 10:50-0400 Heart rate 72 /min Yin GROVE [facility] 09-08-2022 10:50-0400 Respiratory rate 16 /min Yin GROVE [facility] 09-08-2022 10:50-0400 Systolic blood pressure 132 mm[Hg] Yin GROVE [facility] 04-01-2022 14:41-0500 Body temperature 97.2 [degF] SARAVANAN High MD Work Phone: [facility] 04-01-2022 14:41-0500 Body weight 142.79 kg SARAVANAN High MD Work Phone: [facility] 04-01-2022 14:41-0500 Diastolic blood pressure 90 mm[Hg] SARAVANAN High MD Work Phone: [facility] 04-01-2022 14:41-0500 Heart rate 82 /min SARAVANAN High MD Work Phone: [facility] 04-01-2022 14:41-0500 Respiratory rate 18 /min SARAVANAN High MD Work Phone: [facility] 04-01-2022 14:41-0500 SaO2% (BldA) [Mass fraction] 98 % SARAVANAN High MD Work Phone: [facility] 04-01-2022 14:41-0500 Systolic blood pressure 159 mm[Hg] SARAVANAN High MD Work Phone: [facility] 03-21-2022 11:25-0500 Blood Pressure Location iYn GROVE [facility] 03-21-2022 11:25-0500 Diastolic blood pressure 80 mm[Hg] Yin GROVE [facility] 03-21-2022 11:25-0500 Heart rate 76 /min Yin GROVE [facility] 03-21-2022 11:25-0500 Respiratory rate 16 /min Yin GROVE [facility] 03-21-2022 11:25-0500 Systolic blood pressure 138 mm[Hg] Yin GROVE [facility] 02-11-2022 11:05-0500 Body height 187.96 cm Kevin Brewer Work Phone: [facility] 250 DO Work Phone: 02-11-2022 11:05-0500 Body mass index (BMI) [Ratio] 40.57 kg/m2 Kevin Scott Naderer Work Phone: [facility] 250 DO Work Phone: 02-11-2022 11:05-0500 Body surface area Derived from formula 2.64 m2 Kevin Scott Naderer Work Phone: [facility] 250 DO Work Phone: 02-11-2022 11:05-0500 Body weight 143.34 kg Kevin Scott Naderer Work Phone: [facility] 250 DO Work Phone: 02-11-2022 11:05-0500 Diastolic blood pressure 78 mm[Hg] Kevin Scott Naderer Work Phone: [facility] 250 DO Work Phone: 02-11-2022 11:05-0500 Heart rate 73 /min Kevin Scott Naderer Work Phone: [facility] 250 DO Work Phone: 02-11-2022 11:05-0500 Systolic blood pressure 132 mm[Hg] Kevin Scott Naderer Work Phone: [facility] 250 DO Work Phone: 09-30-2021 10:54-0400 Blood Pressure Location Yin GROVE [facility] 09-30-2021 10:54-0400 Diastolic blood pressure 84 mm[Hg] Yin GROVE [facility] 09-30-2021 10:54-0400 Heart rate 75 /min Yin GROVE [facility] 09-30-2021 10:54-0400 Respiratory rate 16 /min [facility] 09-30-2021 10:54-0400 Systolic blood pressure 136 mm[Hg] Yinlucy GROVE [facility] 08-14-2021 09:47-0400 Body temperature 96.69 [degF] SARAVANAN High MD Work Phone: [facility] 08-14-2021 09:47-0400 Body weight 141.98 kg SARAVANAN High MD Work Phone: [facility] 08-14-2021 09:47-0400 Diastolic blood pressure 82 mm[Hg] SARAVANAN High MD Work Phone: [facility] 08-14-2021 09:47-0400 Heart rate 82 /min SARAVANAN High MD Work Phone: [facility] 08-14-2021 09:47-0400 Respiratory rate 20 /min SARAVANAN High MD Work Phone: [facility] 08-14-2021 09:47-0400 SaO2% (BldA) [Mass fraction] 94 % SARAVANAN High MD Work Phone: [facility] 08-14-2021 09:47-0400 Systolic blood pressure 131 mm[Hg] SARAVANAN High MD Work Phone: [facility] 08-12-2021 10:15-0400 Body height 187.96 cm Kevin Brewer Work Phone: [facility] 250 DO Work Phone: 08-12-2021 10:15-0400 Body mass index (BMI) [Ratio] 39.93 kg/m2 Kevin Brewer Work Phone: [facility] 250 DO Work Phone: 08-12-2021 10:15-0400 Body surface area Derived from formula 2.62 m2 Kevin Scott Naderer Work Phone: [facility] 250 DO Work Phone: 08-12-2021 10:15-0400 Body weight 141.07 kg Kevin Scott Naderer Work Phone: [facility] 250 DO Work Phone: 08-12-2021 10:15-0400 Diastolic blood pressure 80 mm[Hg] Kevin Scott Naderer Work Phone: [facility] 250 DO Work Phone: 08-12-2021 10:15-0400 Heart rate 69 /min Kevin Scott Naderer Work Phone: [facility] 250 DO Work Phone: 08-12-2021 10:15-0400 Systolic blood pressure 130 mm[Hg] Kevin Lovelaceerer Work Phone: [facility] 250 DO Work Phone: 08-09-2021 09:42-0400 Blood Pressure Location Yin GROVE [facility] 08-09-2021 09:42-0400 Diastolic blood pressure 80 mm[Hg] Yin GROVE [facility] 08-09-2021 09:42-0400 Heart rate 75 /min Yin GROVE [facility] 08-09-2021 09:42-0400 Respiratory rate 16 /min Yin GROVE [facility] 08-09-2021 09:42-0400 Systolic blood pressure 134 mm[Hg] Yin [facility] 02-15-2021 13:46-0500 Body height 187.96 cm Kevin Scott Naderer Work Phone: [facility] 250 DO Work Phone: 02-15-2021 13:46-0500 Body mass index (BMI) [Ratio] 39.67 kg/m2 Kevin Scott Naderer Work Phone: [facility] 250 DO Work Phone: 02-15-2021 13:46-0500 Body surface area Derived from formula 2.61 m2 Kevin Scott Naderer Work Phone: [facility] 250 DO Work Phone: 02-15-2021 13:46-0500 Body weight 140.16 kg Kevin Scott Naderer Work Phone: [facility] 250 DO Work Phone: 02-15-2021 13:46-0500 Diastolic blood pressure 80 mm[Hg] Kevin Scott Naderer Work Phone: [facility] 250 DO Work Phone: 02-15-2021 13:46-0500 Heart rate 72 /min eKvin Scott Naderer Work Phone: [facility] 250 DO Work Phone: 02-15-2021 13:46-0500 Systolic blood pressure 118 mm[Hg] Kevin Scott Naderer Work Phone: [facility] 250 DO Work Phone: Encounters Encounter Date Encounter Type Care Provider Facility Start: 05-13-2024 ambulatory Yin Moorei ty:[facility] Start: 07-13-2023 End: 07-13-2023 ambulatory FRANCHESCA [place] Not Available Start: 06-29-2023 End: 06-29-2023 ambulatory KEVIN BREWER Not Available Start: 05-11-2023 End: 05-12-2023 ambulatory Yin GROVE [facility] Start: 05-11-2023 End: 05-11-2023 Patient encounter procedure Yin GROVE [facility] Start: 04-07-2023 End: 04-07-2023 ambulatory Demond HIGH Facility:[facility] Start: 04-07-2023 End: 04-07-2023 Patient encounter procedure Demond High MD Work Phone: Radiation Oncology Comment on above: Malignant neoplasm o f prostate (HCC) (Primary Dx) Start: 02-10-2023 End: 02-10-[address] [facility] Start: 02-10-2023 End: 02-10-2023 Office outpatient visit 25 minutes Parveen Multani MD Work Phone: [facility] Comment on above: Paroxysmal SVT (supr aventricular tachycardia) (Primary Dx); Primary hypertension; Mixed hyperlipidemia; Morbid obesity with BMI of 40.0-44.9, adult (CMS/HCC); Bifascicular block Start: 09-30-2022 End: 09-30-2022 ambulatory KEVIN Sonia DANIELLA Facility:[facility] Start: 09-30-2022 End: 09-30-2022 Patient encounter procedure Demond High MD Work Phone: Radiation Oncology Comment on above: Malignant neoplasm o f prostate (HCC) (Primary Dx) Start: 09-08-2022 End: 09-09-2022 ambulatory Yin GROVE [facility] Start: 09-08-2022 End: 09-08-2022 Patient encounter procedure Yin GROVE [facility] Start: 07-25-2022 Rx Renewal [facility] Work Phone: Start: 07-02-2022 End: 07-03-[address] KEVIN BREWER Facility:[facility] Start: 04-07-2022 Rx Renewal Kevin Brewer Work Phone: [facility] 250 DO Work Phone: Start: 04-01-2022 End: 04-01-2022 ambulatory Yancy Oneill APRN.CENTRAL SUPPLY TECHNICIAN SUPERVISOR Work Phone: Hematology/Oncology Comment on above: Prostate cancer (HCC ) Start: 04-01-2022 End: 04-01-2022 Patient encounter procedure Yancy Oneill APRN.CENTRAL SUPPLY TECHNICIAN SUPERVISOR Work Phone: [facility] Comment on above: Malignant neoplasm o f prostate (HCC) (Primary Dx) Start: 03-21-2022 End: 03-21-2022 Patient encounter procedure Yin GROVE [facility] Start: 03-11-2022 End: 03-12-[address] KEVIN BREWER Facility:[facility] Start: 02-11-2022 ambulatory Parveen Multani II Facility: Start: 02-11-2022 Office outpatient vi sit 15 minutes [facility] Brewer [facility] DO Work Phone: Start: 02-05-2022 Telephone encounter G Chavez High MD Work Phone: Radiation Oncology Comment on above: Future Appointment Start: 01-14-2022 Rx Renewal Kevin Brewer Work Phone: [facility] 250 DO Work Phone: Start: 09-30-2021 End: 09-30-2021 Patient encounter procedure Yin GROVE [facility] Start: 09-23-2021 End: 09-24-[address] KEVIN BREWER Facility:[facility] Start: 08-14-2021 End: 08-14-2021 Patient encounter procedure Demond High MD Work Phone: Radiation Oncology Comment on above: Malignant neoplasm o f prostate (HCC) (Primary Dx) Start: 08-12-2021 Patient encounter procedure Kevin Brewer Work Phone: [address] [place] [address] DO Work Phone: Start: 08-12-2021 ambulatory Parveen Multani II Facility: Start: 08-09-2021 End: 08-09-2021 Patient encounter procedure Yin GROVE [facility] Start: 08-05-2021 Telephone encounter G Chavez High MD Work Phone: Radiation Oncology Comment on above: FYI-No Action Needed ; Covid19 Concern Start: 07-25-2021 Patient encounter procedure Demond High MD Work Phone: [facility] Start: 07-25-2021 Radiation Oncology Note G Kedar High MD Work Phone: Radiation Oncology Comment on above: Simulation Note Start: 07-24-2021 AUDIT Kevin Brewer Work Phone: [facility] 250 DO Work Phone: Start: 07-16-2021 End: 07-17-[address] KEVIN BREWER Facility: Start: 07-04-2021 End: 07-04-2021 Patient encounter procedure Abdulaziz DAWSON [facility] Start: 06-27-2021 End: 06-28-2021 Patient encounter procedure Demond Chavez High MD Work Phone: Radiation Oncology Comment on above: Malignant neoplasm o f prostate (HCC) (Primary Dx) Start: 06-11-2021 End: 06-11-2021 Patient encounter procedure Demond Chavez High MD Work Phone: Radiation Oncology Comment on above: Malignant neoplasm o f prostate (HCC) (Primary Dx) Start: 06-11-2021 Radiation Oncology Note G Kedar High MD Work Phone: Radiation Oncology Comment on above: Simulation Note Start: 04-26-2021 Rx Renewal Kevin A Naderer Work Phone: [facility] 250 DO Work Phone: Start: 02-15-2021 ambulatory Parveen Multani II Facility: Start: 02-15-2021 Office outpatient vi sit 15 minutes Kevin A Naderer Work Phone: [facility] 250 DO Work Phone: Start: 01-22-2021 Rx Renewal Kevin A Naderer Work Phone: [facility] 250 DO Work Phone: Procedures Date Procedure Procedure Detail Performing Clinician Start: 03-31-2023 PSA screening [facility] Provi kilo Start: 02-10-2023 ECG 12-LEAD PARVEEN PATEL Start: 02-10-2023 Ecg routine ecg w/le ast 12 lds w/i&r Parveen Multani MD Work Phone: Start: 08-29-2022 PSA screening [facility] Provi kilo Start: 03-11-2022 End: 03-11-2022 PSA screening [facility] Provider Comment on above: Performed By: #### P SAD #### [facility] [address] [place] [address] Dr. Shama Naylor Start: 09-23-[address] KEVIN BROOKS Comment on above: Performed By: #### P SAD #### [facility] [address] [place] [address] Dr. Shama Naylor Start: 07-16-2021 End: 07-16-2021 PSA screening [facility] Provider Comment on above: Performed By: #### P SAD #### [facility] [address] [place] [address] Dr. Shama Naylor Start: 06-27-2021 Brachytherapy Yin GRULLON Start: 03-14-2021 Transrectal biopsy o f prostate Abdulaziz DAWSON Arthroplasty of wrist Abdulaziz DAWSON Colonoscopy Abdulaziz DAWSON Surgical repair of u pper extremity Kevin Lovelaceereamanda Work Phone: Total colonoscopy Kevin Lovelace ereamanda Work Phone: Plan of Treatment Date Care Activity Detail Author Start: 03-08-2024 End: 03-08-2024 Patient encounter procedure 03/08/2024 9:00 AM EST Office Visit [facility] [address] [id number] Parveen Multani MD 703 [facility] [address], [address] [address] [facility] Start: 04-07-2023 End: 07-07-2023 Prostate specific Ag [Mass/volume] in Serum or Plasma PSA/PROSTSPECAG DIAG Lab Routine Malignant neoplasm of prostate (HCC) Expected: 04/07/2023, Expires: 07/07/2023 [facility] Work Phone: Comment on above: Expected: 04/07/2023 , Expires: 07/07/2023 Start: 04-02-2023 End: 06-02-2023 Prostate specific Ag [Mass/volume] in Serum or Plasma PSA/PROSTSPECAG DIAG Lab Routine Malignant neoplasm of prostate (HCC) Expected: 04/02/2023 (Approximate), Expires: 06/02/2023 [facility] Work Phone: Comment on above: Expected: 04/02/2023 (Approximate), Expires: 06/02/2023 Start: 03-02-2023 Advance Directive Discussion Advance Directive Discussion [facility] Start: 03-02-2023 Depression Assessment Depression Ass essment [facility] Start: 02-10-2023 FUV, Provider: Parveen Multani, Status: Pen, Time: 11:00 AM FUV, Provider: Parveen Multani, Status: Pen, Time: 11:00 AM [facility] 250 DO Work Phone: Start: 10-31-2022 Covid-19 Vaccine ( season) Covid-19 Vaccine () [facility] Start: 10-31-2022 Influenza vaccination C [facility] Start: 03-02-2022 ADVANCE DIRECTIVE DISCUSSION ADVANCE DIRECTIVE DISCUSSION [facility] Start: 03-02-2022 DEPRESSION ASSESSMENT DEPRESSION ASS ESSMENT [facility] Start: 02-11-2022 FUV, Provider: Parveen Multani, Status: Pen, Time: 10:50 AM FUV, Provider: Parveen Multani, Status: Pen, Time: 10:50 AM [facility] 250 DO Work Phone: Start: 10-31-2021 Influenza vaccination C [facility] Start: 04-15-2021 COVID-19 VACCINE (4 - Booster for Pfizer series) COVID-19 VACCINE (4 - Booster for Pfizer series) [facility] Start: 03-02-2021 ADVANCE DIRECTIVE DISCUSSION ADVANCE DIRECTIVE DISCUSSION [facility] Start: 03-02-2021 DEPRESSION ASSESSMENT DEPRESSION ASS ESSMENT [facility] Start: 02-15-2021 FUV, Provider: Parveen Multani, Status: Pen, Time: 1:30 PM FUV, Provider: Parveen Multani, Status: Pen, Time: 1:30 PM [facility] 250 DO Work Phone: Start: 12-09-2021 COVID-19 VACCINE (4 - Booster for Pfizer series) COVID-19 VACCINE (4 - Booster for Pfizer series) [facility] Start: 02-07-2021 COVID-19 VACCINE (4 - Pfizer series) COVID-19 VACCINE (4 - Pfizer series) [facility] Start: 07-02-2015 Abdominal aortic aneurysm screening Abdominal Aortic Aneurysm (AAA) Screening [facility] Start: 07-02-2015 Pneumococcal Vaccine : 65+ (1 of 1 - PCV) Pneumococcal Vaccine: 65+ (1 of 1 - PCV) [facility] Start: 07-02-2015 Pneumococcal Vaccine : 65+ Years (1 - PCV) Pneumococcal Vaccine: 65+ Years (1 - PCV) [facility] Start: 07-02-2015 PNEUMOCOCCAL: 65+ (1 - PCV) PNEUMOCOCCAL: 65+ (1 - PCV) [facility] Start: 07-02-2015 PNEUMOVAX AGE 65 AND OVER WITH 5YR LOOKBACK (#1) PNEUMOVAX AGE 65 AND OVER WITH 5YR LOOKBACK (#1) [facility] Start: 2010 RSV Vaccine (1 - 1-d ose 60+ series) RSV Vaccine (1 - 1-dose 60+ series) [facility] Start: 2000 SHINGRIX VACCINE (1 of 2) SHINGRIX VACCINE (1 of 2) [facility] Start: 2000 Zoster Vaccines (1 of 2) Zoste r Vaccines (1 of 2) [facility] Start: 07-02-1995 COLOGUARD (FIT-DNA) COLOGUARD (FIT-D NA) [facility] Start: 07-02-1995 Colonoscopy COLONOSCOPY [facility] Start: 07-02-1995 COLORECTAL CANCER SCREENING COLORECTAL CANCER SCREENING [facility] Start: 07-02-[address] COLONOGRAPHY [facility] Start: 07-02-1995 DIABETES SCREEN [facility] Start: 07-02-1995 Diabetes Screening Diabetes Screenin g [facility] Start: 07-02-1995 FECAL OCCULT BLOOD FECAL OCCULT BLOO D [facility] Start: 07-02-1995 Screening for malign ant neoplasm of colon [facility] Start: 07-02-1995 SIGMOIDOSCOPY SIGMOIDOSCOPY [facility] Start: 1985 [facility] Start: 1985 LIPID SCREEN LIPID SCREEN [facility] Start: 1972 DTaP/Tdap/Td Vaccine s (1 - Tdap) DTaP/Tdap/Td Vaccines (1 - Tdap) [facility] Start: 1969 SHINGRIX VACCINE (1 of 2) SHINGRIX VACCINE (1 of 2) [facility] Start: 1969 Urine microalbumin profile [facility] Start: 1968 Diabetes mellitus screening Diabetes Screening [facility] Start: 1968 HEPATITIS C SCREENING HEPATITIS C [facility] Start: 1968 Hepatitis C screening Hepatitis C [facility] Start: 1962 Adult depression screening assessment DEPRESSION SCREENING [facility] Start: 1956 PNEUMOCOCCAL: 65+ (1 - PCV) PNEUMOCOCCAL: 65+ (1 - PCV) [facility] Start: 1950 ABDOMINAL AORTIC ANEURYSM SCREENING ABDOMINAL AORTIC ANEURYSM SCREENING [facility] Start: 1950 Abdominal aortic aneurysm screening Abdominal Aortic Aneurysm Screening [facility] Start: 1950 Lipid panel Lipid Panel [facility] Start: 1950 Medicare Annual Well ness Visit Medicare Annual Wellness Visit (AWV) [facility] Start: 1950 Screening for malign ant neoplasm of colon [facility] Immunizations Immunization Date Immunization Notes Care Provider Fa [facility] 11-28-2021 Fluzone High-Dose Quadrivalent 0.7 ML Intramuscular Suspension Prefilled Syringe Kevin Brewer Work Phone: [facility] 250 DO Work Phone: 11-28-2021 influenza virus vaccine, unspecified formulation Yin GROVE [facility] 11-28-2021 influenza, high dose seasonal, preservative-free Parveen Multani MD Work Phone: [facility] Work Phone: 12-13-2020 Pf[employer] COVID-19 Vacc 30 MCG/0.3ML Intramuscular Suspension Kevin A Naderer Work Phone: [facility] of [facility] 05-19-2020 Pfizer-BioNTech COVID-19 Vacc 30 MCG/0.3ML Intramuscular Suspension Kevin A Naderer Work Phone: [facility] 04-28-2020 Pfizer-BioNTech COVID-19 Vacc 30 MCG/0.3ML Intramuscular Suspension Kevin A Naderer Work Phone: [facility] 03-02-2020 SARS-CoV-2 (COVID-19 ) mRNA BNT-162b2 vax Abdulaziz EUNICE [facility] Comment on above: Result Comment: pt i s fully vaccinated and has received the booster but does not remember the dates 12-14-2019 influenza virus vaccine, unspecified formulation Yin GROVE [facility] 12-14-2019 influenza, injectabl e, quadrivalent, preservative free Kevin A Naderer Work Phone: [facility] ShangPin DO Work Phone: 12-01-2019 influenza virus vaccine, unspecified formulation Yin GROVE [facility] 12-01-2019 influenza, seasonal, injectable Kevin A Naderer Work Phone: [facility] 250 DO Work Phone: 02-09-2012 influenza virus vaccine, unspecified formulation Yin [employer] [facility] 02-09-2012 influenza, seasonal, injectable Kevin A Naderer Work Phone: [facility] 250 DO Work Phone: Payers Date Payer Category Payer Private Health Insurance AETSARAVANAN Scott ETSARAVANAN MEDICARE SUPPLEMENT [id number] 2020-Present [phone] [address] [address] [place] [address] Indemnity [id number] 2020 Private Health Insurance [id number] 2015 Medicare MEDICARE MEDICAR E A AND B [id number] 2015-Present [phone] [place] [address] Medicare [id number] 2015 Medicare [id number] 1959 Medicare [id number] 1959 Private Health Insurance [facility] [id number] 1950 Unknown [id number] [id number]. 2.356 1950 Unknown [id number] 2.16.840.1.356754.3.579. 2.356 1950 Unknown [id number] 2.16.840.1.226627.3.579. 2.356 1950 Unknown [id number] 2.16.840.1.053061.3.579. 2.593 1950 Unknown [id number] 2.16.840.1.254826.3.579. 2.593 1950 Unknown [id number] 2.16.840.1.248023.3.579. 2.593 1950 Unknown [id number] 2.16.840.1.752760.3.579. 2.593 1950 Unknown [id number] 2.16.840.1.674475.3.579. 2.1244 1950 Unknown [id number] 2.16.840.1.967686.3.579. 2.727 1950 Unknown [id number] 2.16.840.1.960169.3.579. 2.727 1950 Unknown [id number] 2.16.840.1.452015.3.579. 2.727 1950 Unknown [id number] 2.16.840.1.393119.3.579. 2.1259 1950 Unknown [id number] 2.16.840.1.423971.3.579. 2.1259 Unknown Social History Date Type Detail Facility Start: 05-20-2021 End: 09-30-2022 Alcohol use Alcohol use [facility] Comment on above: 4 8 oz cups of coffe e/occasional decaf coffee; Quit in 1970s; Start: 04-03-2021 End: 04-07-2023 Tobacco smoking status NHIS Ex-smoker [facility] End: 04-03-1981 History of tobacco use Current smoker [facility] End: 04-03-1981 History of tobacco use Pipe Smoker [facility] End: 04-03-1981 History of tobacco use Cigar Smoker [facility] Start: 04-03-2021 End: 04-07-2023 Tobacco use and exposure Smokeless tobacco non-user [facility] Start: 05-20-2021 End: 04-07-2023 Alcohol intake Current drinker of alcohol (finding) [facility] Start: 04-03-2021 History SDOH Alcohol Comment 2-3 times/wk [facility] Start: 1950 Sex Assigned At Not on file C [facility] Start: 06-01-2021 End: 02-10-2023 Exposure to SARS-CoV-2 (event) Not sure [facility] Start: 05-20-2021 End: 09-30-2022 Sex Assigned At Male [facility] [place] Tobacco smoking status No Smokin g Status Entered [facility] Start: 03-21-2022 Tobacco smoking status Never s moked tobacco (finding) [facility] Start: 05-11-2023 Tobacco smoking status Never [facility] End: 03-02-1969 History of tobacco use Cigarette Smoker [facility] Work Phone: Start: 02-06-2023 Alcohol Comment [facility] Work Phone: Functional Status Date Assessment Result Facility 05-11-2023 Functional Status N/A [facility] 09-08-2022 Functional Status N/A [facility] 03-21-2022 Functional Status N/A [facility] 09-30-2021 Functional Status N/A [facility] Clinical Notes 06-11-2021 to 05-11-2023 Kelly Guo LPN - 04/07/2023 1:09 PM Demond Anthony MD - 04/07/2023 1:05 PM Montez Multani MD - 02/10/2023 11:00 AM ESTPatient Naida Loo RN - 09/30/2022 1:59 PM EDT Note [...] treatment? Where to find more information [employer] [place] [employer]: www.cancer.org [place] [employer]: www.auanet.org Contact a health care [...] provider. Document Revised: 08/12/2021 Document Reviewed: 08/12/2021 Elsevier Patient Education 2022 [facility]. Follow Up Care 09/08/2022 12:26:22 With:CARINE DELGADO, Yin Patel, URL Address: [facility] [address], [place] [address] [phone] When: Unknown Comments:PSA in 6 mos and f/u in 1 yr w/ repeat PSA [facility] [place] 04-07-2023 Note HNO ID: [id number] Author: Demond HIGH MD Service: ? Author [...] Demond High MD cc: Kevin Brewer MD ([facility]) [address] [place] [address] Portions of the above note extracted and edited from previous visit as well as active information included in the EMR. [facility] 04-07-2023 Nurse Note AUA=12 documented in this encounter [facility] 04-07-2023 History of Present illness Narrative Radiation Oncology - Follow Up Note PATIENT NAME: Lius Luis PATIENT DIAGNOSIS: Prostate adenocarcinoma, initial PSA [...] Demond High MD cc: Kevin Brewer MD ([facility]) [address] [place] [address] Portions of the above note extracted and edited from previous visit as well as active information included in the EMR. documented in this encounter [facility] 02-10-2023 History of Present illness Narrative [...] in office today documented in this encounter [facility] Work Phone: 02-10-2023 Instructions Felix Caal [...] of your visit. documented in this encounter [facility] Work Phone: 09-30-2022 Note HNO ID: [id number] Author: Demond High MD Service: ? Author [...] ASSESSMENT/PLAN: Prostate adenocarcinoma, initial PSA 4.3, biopsy Harrogate score 3 + 4 = 7 (grade group 2), clinical stage T2a, N0, M0, stage IIB [T1-T2, N0, M0, PSA <20, GG 2] (AJCC 8th ed.), s/p TRUS Random and MRI fusion biopsy. PSA remains undetectable. No postradiation related issues. Plan see patient back in 6 months for further postradiation follow-up. Signed by: Demond High MD cc: Kevin Brewer MD ([facility]) [address] [place] [address] Portions of the above note extracted and edited from previous visit as well as active information included in the EMR. [facility] 09-30-2022 History of Present illness Narrative [...] Demond High MD cc: Kevin Brewer MD ([facility]) [address] [place] [address] Portions of the above note extracted and edited from previous visit as well as active information included in the EMR. documented in this encounter [facility] 09-30-2022 Nurse Note AUA 14 Naida Jacobo RN documented in this encounter [facility] 09-08-2022 Hospital Discharge instructions Patient Education [...] urethra. Follow these instructions at home: Take zzwf-oij-quqbwyo and prescription medicines only as told by [...] provider. Document Revised: 09/04/2021 Document Reviewed: 09/04/2021 [employer] Patient Education 2022 [facility]. Follow Up Care 03/21/2022 12:44:25 With:CARINE DELGADO, Yin Patel, KAVITAL Address: [facility] [address] , [place] [address] [phone] When:Within 8 Month(s) Comments:PSA [facility] [place] 04-01-2022 History of Present illness Narrative [...] care plan for prostate cancer. Yancy Oneill APRN.CENTRAL SUPPLY TECHNICIAN SUPERVISOR documented in this encounter [facility] 04-01-2022 History of Present illness Narrative Radiation Oncology - Follow Up Note PATIENT NAME: Luis Luis PATIENT DIAGNOSIS: Prostate adenocarcinoma, initial PSA 4.3, biopsy Harrogate score 3 + 4 = 7 (grade [...] Demond High MD cc: Kevin Brewer MD ([facility]) [address] [place] [address] Portions of the above note extracted and edited from previous visit as well as active information included in the EMR. documented in this encounter [facility] 04-01-2022 Nurse Note AUA 14 Naida Jacobo RN documented in this encounter [facility] 03-21-2022 Hospital Discharge instructions Patient Education [...] who: Are older than age 65. Are -[place]. Are obese. Have a family history of [...] cells. Follow these instructions at home: Take wygh-qaz-cmulzrv and prescription medicines only as told by [...] 02/16/2006 Document Revised: 01/29/2018 Document Reviewed: 10/27/2016 [employer] Patient Education 2020 [facility]. Follow Up Care 09/30/2021 11:58:37 With:CARINE DELGADO, Yin Patel, URL Address: [address] [place], [place] [id number]- When: Unknown Comments:6 mos w/ PSA [facility] 02-06-2022 Miscellaneous Notes Patient has been rescheduled & notified of appointment. Monica Rodríguez Pt has PSA scheduled with Dr Grove in March and would like to postpone his follow up visit with Dr High until after that is done. PSS- please call pt and reschedule. He will be awaiting your call. Naida Jacobo RN documented in this encounter [facility] 09-30-2021 Hospital Discharge instructions Patient Education [...] urethra. Follow these instructions at home: Take gsxz-suc-bdqhzlb and prescription medicines only as told by [...] 02/16/2006 Document Revised: 01/11/2019 Document Reviewed: 03/23/2017 [employer] Patient Education 2020 [facility]. Follow Up Care 04/01/2021 13:09:22 With:CARINE DELGADO, Yin Patel, URL Address: [facility] [address], [place] [phone] When:Within 6 Month(s) Comments:w/ PSA [facility] [place] 08-14-2021 Nurse Note AUA 18 Naida Jacobo RN documented in this encounter [facility] 08-14-2021 History of Present illness Narrative Radiation Oncology - Follow Up Note PATIENT NAME: Luis Luis PATIENT DIAGNOSIS: Prostate adenocarcinoma, initial PSA 4.3, biopsy Harrogate score 3 + 4 = 7 (grade [...] ASSESSMENT/PLAN: Prostate adenocarcinoma, initial PSA 4.3, biopsy Harrogate score 3 + 4 = 7 (grade [...] Demond High MD cc: Kevin Brewer MD ([facility]) [address] [place] [address] documented in this encounter [facility] 08-09-2021 Hospital Discharge instructions Patient Education [...] including vitamins, herbs, eye drops, creams, and hqlt-glg-mxnuoko medicines. Any problems you or family members [...] 07/27/2006 Document Revised: 01/29/2018 Document Reviewed: 02/25/2017 [employer] Patient Education 2020 [facility]. Follow Up Care 07/04/2021 11:13:01 With:CARINE DELGADO, Yin Patel, URL Address: [facility] [address], [place] [address]- [phone] When: Unknown [facility] 08-05-2021 Miscellaneous Notes Ok to resched Luis called in stating he tested positive for COVID-19 on 08/03/21 and his symptoms started , 08/01/21. He has a scheduled 6wk post implant follow up on 08/08/21. He will call us later in the week to possibly reschedule his follow up. Kelly Guo LPN documented in this encounter [facility] 07-25-2021 History of Present illness Narrative Patient: Luis Luis Date:07/25/2021 [facility] Department of Radiation Oncology [facility] RADIATION ONCOLOGY POST SEED IMPLANT SIMULATION [...] M.D. 23:26 PM documented in this encounter [facility] 06-27-2021 History of Present illness Narrative Date: 06/27/21 Facility: [facility] Procedure: prostate transperineal brachytherapy implant Sources: [...] patient identified by name and hospital ID [email or web address]. After anesthesia administered patient placed in dorsal-lithotomy [...] High MD (Signed electronically to expedite mailing) [facility] documented in this encounter [facility] 06-11-2021 History of Present illness Narrative [...] Demond High MD documented in this encounter [facility] 06-11-2021 History of Present illness Narrative LUIS LUIS [id number] 06/11/2021 [facility] Department of Radiation Oncology [facility] RADIATION ONCOLOGY SIMULATION NOTE DATE OF SIMULATION: 06/11/2021 MACHINE: [employer] 500 Diagnosis: 185 (Prostate Gland) AREA:Prostate PATIENT POSITION: Supine CONTRAST: None PROTOCOL: None CONCURRENT THERAPY: None FIXATION DEVICE: UTS Stabilization device by [employer]. PROCEDURE: Patient was simulated in exaggerated dorsal lithotomy position. Serial images of the prostate were acquired using TRUS and reconstructed in 3D space. These images were imported into [employer] Prostate planning system where a plan was generated. ASSESSMENT/PLAN: Patient tolerated simulation procedure well. Electronically Signed Chavez High M.D. / LAURA 25:05 PM documented in this encounter [facility] Evaluation + Plan note Future Appointments Appointment Date:08/05/2021 08:45:00 AM Scheduled Provider:Yin GROVE MD Location:[facility] Appointment Type:URO Office Visit Appointment Date:09/30/2021 10:30:00 AM Scheduled Provider:Yin GROVE MD Location:[facility] Appointment Type:URO Office Visit Future Scheduled TestsPT & PTT 03/05/21BUN 03/05/21Creatinine 03/05/21Electrolyte Panel 03/05/21CBC w/ Auto Diff 03/05/21XR Chest 2 Views 03/05/21 [facility] Evaluation + Plan note Future Appointments Appointment Date:09/30/2021 10:30:00 AM Scheduled Provider:Yin GROVE MD Location:[facility] Appointment Type:URO Office Visit Diagnostic Tests PendingPSA Total 08/09/21 Future Scheduled TestsPT & PTT 03/05/21BUN 03/05/21Creatinine 03/05/21Electrolyte Panel 03/05/21CBC w/ Auto Diff 03/05/21XR Chest 2 Views 03/05/[address] [facility] Evaluation + Plan note Future Appointments Appointment Date:03/21/2022 11:00:00 AM Scheduled Provider:Yin GROVE MD Location:[facility] Appointment Type:URO Office Visit Diagnostic Tests PendingPSA Total 09/30/21 Future Scheduled TestsPT & PTT 03/05/21BUN 03/05/21Creatinine 03/05/21Electrolyte Panel 03/05/21CBC w/ Auto Diff 03/05/21XR Chest 2 Views 03/05/[address] [facility] Evaluation + Plan note Future Appointments Appointment Date:09/08/2022 10:15:00 AM Scheduled Provider:Yin GROVE MD Location:[facility] Appointment Type:URO Office Visit Diagnostic Tests PendingPSA Total 06/30/22 [facility] Evaluation + Plan note Future Appointments Appointment Date:05/11/2023 09:45:00 AM Scheduled Provider:Yin GROVE MD Location:[facility] Appointment Type:URO Office Visit Diagnostic Tests PendingPSA Total 09/08/[address] [facility] Evaluation + Plan note Future Appointments Appointment Date:05/13/2024 09:45:00 AM Scheduled Provider:Yin GROVE MD Location:[facility] Appointment Type:URO Office Visit Diagnostic Tests PendingPSA Total 05/11/[address] [facility] Evaluation note Diagnosis Malignant neoplasm of prostate (HCC)- Primary Malignant neoplasm of prostate [facility] Malignant neoplasm of prostate (HCC)- Primary Malignant neoplasm of prostate [facility] Diagnosis Malignant neoplasm of prostate (HCC)- Primary Malignant neoplasm of prostate [facility] Diagnosis Prostate cancer (HCC) Malignant neoplasm of prostate [facility] Malignant neoplasm of prostate (HCC)- Primary Malignant neoplasm of prostate [facility] Diagnosis Malignant neoplasm of prostate (HCC)- Primary Malignant neoplasm of prostate [facility] Diagnosis Paroxysmal SVT (supraventricular tachycardia)- Primary Primary hypertension Unspecified essential hypertension Mixed hyperlipidemia Morbid obesity with BMI of 40.0-44.9, adult (CMS/HCC) Bifascicular block Other bilateral bundle branch block documented in this encounter [facility] Work Phone: Evaluation note* Diagnosis Malignant neoplasm of prostate (HCC)- Primary Malignant neoplasm of prostate [facility] of [facility] illness NarrativePatient returns in follow-up [...] diet lifestyle modific ation exercise and weight loss.[facility] Work Phone: History of Present illness Narrative* [...] merits of diet exercise and weight loss. [facility] Work Phone: Hospital course Narrative No data available for this section [facility] [employer] Hospital Discharge instructions No data available for this section [facility] Progress note No data available for this section [facility] Purpose Family History No Family [...] Procedures ECG 12 Lead Parveen Multani MD [address] [place] [address] 2, [place] [phone] Referral ID Status Reason Start Date Expiration Date V isits Requested Visits Authorized [id number] Pending Review 02/10/2023 02/10/2024 1 1 Specialty Diagnoses / Procedures Referred By Myrtle romeo Referred To Contact Cardiology Diagnoses Paroxysmal SVT (supraventricular tachycardia) Procedures Follow Up In Cardiology Parveen Multani MD [address] [facility] 2, [facility] [address] [place] [id number] Parveen Multani MD [address] [place] [address] 2, [place] [phone] Referral ID Status Reason Start Date Expiration Date V isits Requested Visits Authorized [id number] Authorized 02/10/2023 02/10/2024 1 1 Additional Source Comments (unrecognized sect ion and content) No Status Records FoundNo Status Records FoundNo Status Records FoundNo Status Records FoundNo Status Records FoundNo Status Records FoundNo Status Records FoundNo Status Records FoundNo Status Records Found INFORMATION SOURCE (unrecogn ized section and content) DATE CREATED AUTHOR 12/03/2019 [facility] DATE CREATED AUTHOR AUTHOR'S ORGANIZ ATION 04/21/2021 [facility] DATE CREATED AUTHOR AUTHOR'S ORGANIZ ATION 02/12/2022 [facility] DATE CREATED AUTHOR AUTHOR'S ORGANIZ ATION 02/12/2022 [employer] DATE CREATED AUTHOR AUTHOR'S ORGANIZ ATION 07/10/[address] [facility] DATE CREATED AUTHOR AUTHOR'S ORGANIZ ATION 02/13/2023 [facility] DATE CREATED AUTHOR AUTHOR'S ORGANIZ ATION 04/17/2023 [facility] DATE CREATED AUTHOR AUTHOR'S ORGANIZ ATION 05/13/2023 [facility] DATE CREATED AUTHOR AUTHOR'S ORGANIZ ATION 07/14/2023 [facility] [employer] Comments (unrecognize d section and content) In the event this informatio n is protected by the Federal Confidentiality of Alcohol and Drug Abuse Patient Records regulations: The Federal rules restrict any use of the information to criminally investigate or prosecute any alcohol or drug abuse patient.[facility] the event this information is protected by the Federal Confidentiality of Alcohol and Drug Abuse Patient Records regulations: The Federal rules restrict any use of the information to criminally investigate or prosecute any alcohol or drug abuse patient.[facility] the event this information is protected by the Federal Confidentiality of Alcohol and Drug Abuse Patient Records regulations: The Federal rules restrict any use of the information to criminally investigate or prosecute any alcohol or drug abuse patient.[facility] the event this information is protected by the Federal Confidentiality of Alcohol and Drug Abuse Patient Records regulations: The Federal rules restrict any use of the information to criminally investigate or prosecute any alcohol or drug abuse patient.[facility] the event this information is protected by the Federal Confidentiality of Alcohol and Drug Abuse Patient Records regulations: The Federal rules restrict any use of the information to criminally investigate or prosecute any alcohol or drug abuse patient.[facility] the event this information is protected by the Federal Confidentiality of Alcohol and Drug Abuse Patient Records regulations: The Federal rules restrict any use of the information to criminally investigate or prosecute any alcohol or drug abuse patient.[facility] the event this information is protected by the Federal Confidentiality of Alcohol and Drug Abuse Patient Records regulations: The Federal rules restrict any use of the information to criminally investigate or prosecute any alcohol or drug abuse patient.[facility] the event this information is protected by the Federal Confidentiality of Alcohol and Drug Abuse Patient Records regulations: The Federal rules restrict any use of the information to criminally investigate or prosecute any alcohol or drug abuse patient.[facility] the event this information is protected by the Federal Confidentiality of Alcohol and Drug Abuse Patient Records regulations: The Federal rules restrict any use of the information to criminally investigate or prosecute any alcohol or drug abuse patient.[facility] the event this information is protected by the Federal Confidentiality of Alcohol and Drug Abuse Patient Records regulations: The Federal rules restrict any use of the information to criminally investigate or prosecute any alcohol or drug abuse patient.[facility] the event this information is protected by the Federal Confidentiality of Alcohol and Drug Abuse Patient Records regulations: The Federal rules restrict any use of the information to criminally investigate or prosecute any alcohol or drug abuse patient.[facility] Teams (unrecognized sec tion and content) 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 Relationship Specialty Start Date End Date Kevin Brewer [address] [place] [address] PCP - General Family Practice 03/22/21 Yin Grove MD [address] [place] [address] Referring Urology 03/22/21 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 Relationship Specialty Start Date End Date Kevin Brewer [address] [place] [address] PCP - General Family Practice 03/22/21 Yin Grove MD [address] [place] [address] Referring Urology 03/22/21 [employer]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 Relationship Specialty Start Date End Date Kevin Brewer [address] [place] [address] PCP - General Family Practice 03/22/21 Yin Grove MD [address] [place] [address] Referring Urology 03/22/21 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 Relationship Specialty Start Date End Date Kevin Brewer [address] [place] [address] PCP - General Family Practice 03/22/21 Yin Grove MD [address] [place] [address] Referring Urology 03/22/21 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 Relationship Specialty Start Date End Date Kevin Brewer [address] [place] [address] PCP - General Family Practice 03/22/21 Yin Grove MD [address] [place] [address] Referring Urology 03/22/21 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 Relationship Specialty Start Date End Date Kevin Brewer [address] [place] [address] PCP - General Family Medicine 03/22/21 Yin Grove MD [address] [place] [address] Referring Urology 03/22/21 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 Relationship Specialty Start Date End Date Kevin Brewer [address] [place] [address] PCP - General Family Medicine 03/22/21 Yin Grove MD [address] [place] [address] Referring Urology 03/22/21 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 Relationship Specialty Start Date End Date Kevin Brewer [address] [place] [address] PCP - General Family Medicine 03/22/21 Yin Grove MD [address] [place] [address] Referring Urology 03/22/21 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 Relationship Specialty Start Date End Date Kevin Brewer [address] [place] [address] PCP - General Family Medicine 03/22/21 Yin Grove MD [address] [place] [address] Referring Urology 03/22/21 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 Relationship Specialty Start Date End Date Kevin Brewer MD [address] [place] [address] PCP - General Family Medicine 02/05/23 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 Relationship Specialty Start Date End Date Kevin Brewer [address] [place] [address] PCP - General Family Medicine 03/22/21 Yin Grove MD [address] [facility] [place] [address] Referring Urology 03/22/21 Reason for Visit (unrecogniz ed section and content) Specialty Diagnoses / Procedures Referred By Contac t Referred To Contact Radiation Oncology / RADIATION ONCOLOGY Diagnoses Malignant neoplasm of prostate Seed Implant at [facility] Procedures SEED IMPLANT Demond High MD [address] [place] [address] [place] [address] Demond High MD [address] [place] [address] [place] [address] Referral ID Status Reason Start Date Expiration Date V isits Requested Visits Authorized [id number] Authorized 06/27/2021 03/01/2022 99 99 Reason Comments FYI-No Action Needed Covid19 Concern Reason Comments Prostate Cancer Reason Comments Future Appointment Reason Comments Annual Exam Specialty Diagnoses / Procedures Referred By Contac t Referred To Contact Diagnoses Paroxysmal SVT (supraventricular tachycardia) Procedures ECG 12 Lead Parveen Multani MD [address] [facility] [address] [place] [address] Referral ID Status Reason Start Date Expiration Date V isits Requested Visits Authorized [id number] Pending Review 02/10/2023 02/10/2024 1 1 FOR [...] BE BASED ON THE PRIMARY CLINICAL RECORDS. [facility] [employer], [facility]. provides no warranty or guarantee of the accuracy or completeness of information in this document.
[2023-08-25 10:49] VITALS: BP 157/96; PULSE 95; TEMP 36.2; O2SAT 95; BMI 41.6
[2023-08-25] MEDS: LACTATED RINGER'S SOLUTION 1,000 ML 50 ML IV (11:00)
[2023-08-25 11:54] VITALS: BP 102/64; PULSE 68; O2SAT 92
--- NOTE | 2023-08-25 12:01 | W.PM.PROCNOT ---
Date of procedure: 08/25/23 Pre-op diagnosis: screening colonoscopy Post-op diagnosis: other (inadequate prep) Procedure: Previous colonoscopy: 2009 procedure: inadequate prep, sigmoidoscopy only The patient was given IV conscious sedation.? The patient's SPO2 remained above 90% throughout the procedure. The colonoscope was inserted per rectum and advanced under direct vision to the transverse colon with difficulty.?The prep was inadequate. After continued efforts to clear the lumen of contents the procedure was aborted due to poor visualization. Only the sigmoid colon was assessed. ? Findings: Descending/Sigmoid colon: grossly normal Rectum/Anus: examined in normal and retroflexed positions and was normal Withdrawal Time was (minutes): 12 The colon was decompressed and the scope was removed.? The patient tolerated the procedure well. Recommendations/Plan: 1.? Pt to return for repeat colonoscopy in near future, will do 2 day prep 2.? Discussed with the family Anesthesia: MAC Surgeon: Leonardo Correia Estimated blood loss (mL): 0 Pathology: none sent Condition: stable Disposition: PACU
[2023-08-25 12:10] VITALS: BP 133/71; PULSE 68; O2SAT 93
== END 2023-08-25 12:28 | disposition home or self-care (01) ==
PROVIDERS: PCP Family Medicine; Visit Provider Surgery
PROC: (CPT 45330; principal; 2023-08-25 10:35)
DX: Z12.11 Encounter for screening for malignant neoplasm of colon (principal); K59.00 Constipation, unspecified; Z87.891 Personal history of nicotine dependence; E78.5 Hyperlipidemia, unspecified; I49.9 Cardiac arrhythmia, unspecified; I11.0 Hypertensive heart disease with heart failure; I50.9 Heart failure, unspecified; N40.0 Benign prostatic hyperplasia without lower urinary tract symptoms
CPT/HCPCS: 45330; J2704

== ENCOUNTER 2023-11-11 12:20 | Outpatient (OUT) | payer MEDICARE, SELFPAY ==
--- OUTSIDE RECORDS SUMMARY | 2023-11-11 12:28 | XMS_ITS | CCD ---
Author Organization [facility] CliniSywy Care Team Providers Care Picture Engraver Name Role Phone Kevin Brewer Unavailable Unavailable Unavailable Unavailable Unavailable Kevin Brewer Primary Care Provider Yin Grove MD R Unavailable [phone] KEVIN BREWER Primary Care Physician [phone] Unavailable Unavailable Rodriguezuinbrad II, Parveen Wilder Referring Unav ailable Naderer, Dr. Kevin Vega Primary Care Unavai lable McGuinn II, Parveen Wlider Attending Unav ailable McGuinn II, Parveen Wilder [...] MULTANI Attending Unavailable KEVIN BREWER Primary Care Unavailabl Demond Stanton Attending Unavailable KEVIN BREWER Primary Care Unavailable Demond HIGH Referring Unavailable KEVIN BREWER Primary Care Unavailable Demond HIGH Referring Unavailable Demond HIGH Attending Unavailable Yin GROVE Attending Unavailable Yin GROVE Attending Unavailable Yin GROVE Attending Unavailable KEVIN BREWER Attending Unavailable FRANCHESCA [place] Attending Unavailable FRANCHESCA [place] Attending Unavailable Allergies Allergy Classification Reported Allergen(s) Allergy Type Date of Onset Reaction(s) Facility (1 source) tamsulosin Drug Allergy 05-31-[address] [facility] Repository Medications Current Medications Medication Drug Class(es) [...] Active Start: 01-14-2022 take 1 capsule by mo [facility] once daily in the morning dilTIAZem [...] Start: 09-28-2019 take 1 capsule by mo [facility] once daily in the morning dilTIAZem [...] 0 Start Date: 05/11/23 Status: Ordered Start: 06-10-2022 take 1 capsule by mo [facility] once daily tamsulosin (Flomax) 0.4 mg 24 [...] Active Start: 03-07-2021 take 2 tablets by [facility] at bedtime as needed for pain [...] oral tablet (2 sources) Quinolone Antimicrobial Start: 021 take 1 tablet by mouth twice daily [...] oral capsule (7 sources) Oxidation-Reduction Agent Start: 022 take 1 capsule by mouth twice daily URO-MP 118-10-40.8-36 mg Take 1 capsule by mouth twice daily. 0 08/09/2021 Active Comment on above: Take 1 capsule by [facility] twice daily. naproxen sodium 220 mg oral capsule (2 sources) Nonsteroidal Anti-inflammatory Drug naproxen sodium (ALEVE) 220 mg cap Take by mouth. 0 Active Comment on above: Take by mouth. propafenone hydrochloride 150 mg oral tablet (16 sources) Antiarrhythmic Start: 022 take 1 tablet by mouth three [...] 02-06-2023 Episodic Other aftercare (1 source) Other usp (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; Translations: [OTH [facility] CURRENT DRUG THERAPY] Onset: 07-09-2022 Episodic Other [...] use] Episodic Comment on above: Quit in ; Unclassified (1 source) Supraventricular tachycardia, unspecified; Translations: [...] DELGADO, Yin Patel Where: [facility] Patient Educationon 05-11-19 24 Patient Education Oncology [...] Where to find more information ? The [employer]: www.cancer.org ? [employer]: www.auanet.org Contact a health care [...] adds flu (more content not included)... Normal [facility] Urology Office/Clinic Noteon 05-11-2023 Urology Office/Clinic [...] [facility] [address] [place] [address] [phone] Additional Instructions: PSA in 6 mos and [...] Prostate ca (more content not included)... Normal [facility] Comment on above: Result Comment: Elec tronically Signed By: Yin GROVE MD\.br\Date and Time Signed: 05/11/23 10:34 EDT\.br\Electronically Co-Signed By: Kimberly Nash\.br\Date and Time Co-Signed: 05/11/23 10:32 EDT CNOVon 04-07-2023 CNOV Office Visit (RADTSA ) -------- LUIS LUIS ([id number]) 1950 Date Time Provider Department 04/07/23 1:15 [...] cc: Kevin Brewer MD (Dr[facility]) [address] [place] [address] Portions of the above note extracted and edited from previous visit as well as active information included in the EMR. Kelly Guo LPN 04/15/2023 3:32 PM Signed AUA=12 Referring Provider: Demond HIGH [[id number]] Allergies As of Date: 04/07/2023 (No Known Allergies) Date Reviewed: 04/07/2023 Reviewed by: Kelly Guo LPN - Fully Assessed Reason for Visit: Prostate Cancer [590] Primary Visit Diagnosis:Malignant neoplasm of prostate (HCC) [C61] Order(s):PSA (OUTSIDE) [[id number]] Order #: [id number] PSA/PROSTSPECAG DIAG [SQPSA] Order #: [id number] FUTURE Prescriptions as of 04/15/2023 - naproxen [...] for Encounter Date Provider Department Center 04/07/2023 [id number] HIGHY Encounter Status:Closed by Demond HIGH on 04/15/23 Normal [facility] Lab Reportson 04-01-2023 Lab Reports [id number] F Normal [facility] ECG 12 Leadon 02-10-2023 Normal sinus rhythm Right bundle branch block left anterior fascicular block Bifascicular block Cannot exclude age-indeterminate inferior infarct QTc [address] [facility] Work Phone: CNOVon 09-30-2022 CNOV Office Visit (RADTSA ) -------- LUIS LUIS ([id number]) 1950 M Date Time Provider Department 09/30/22 [...] ASSESSMENT/PLAN: Prostate adenocarcinoma, initial PSA 4.3, biopsy [place] score 3 + 4 = 7 (grade group 2), clinical stage T2a, N0, M0, stage IIB [T1-T2, N0, M0, PSA <20, GG 2] (AJCC 8th ed.), s/p TRUS Random and MRI fusion biopsy. PSA remains undetectable. No postradiation related issues. Plan see patient back in 6 months for further postradiation follow-up. Signed by: Demond High MD cc: Kevin Brewer MD ([facility]) [address] [place] [address] Portions of the above note extracted and edited from previous visit as well as active information included in the EMR. Referring Provider: Demond HIGH [[id number]] Allergies As of Date: 09/30/2022 (No Known Allergies) Date Reviewed: 09/30/2022 Reviewed by: Naida Jacobo RN - Fully Assessed Reason for Visit: Prostate Cancer [590] Primary Visit Diagnosis:Malignant neoplasm of prostate (HCC) [C61] Order(s):PSA (OUTSIDE) [[id number]] Order #: [id number] PSA/PROSTSPECAG DIAG [SQPSA] Order #: [id number] FUTURE Prescriptions as of 10/03/2022 - naproxen [...] 04/01/2022 Visit Notes: >> Naida Jacobo RN [place] Sep 30, 2022 1:59 PM Status: Signed AUA 14 Naida Jacobo RN Disposition: Return in about 6 months (around 04/02/2023). Follow-up and Disposition History for Encounter Date Provider Department Center 09/30/2022 [id number] [facility] Encounter Status:Closed by Demond HIGH on 10/03/22 Normal [facility] Lab Reportson 09-09-2022 Lab Reports [id number]: 127 Normal [facility] Ambulatory Visit Summaryon 0 09-08-2022 Ambulatory Visit Summary LUIS LUIS Kristan :1950 Visit Date:09/08/2022 Ambulatory Visit Instructions Your Diagnosis Prostate cancer BPH with urinary obstruction Family history of prostate cancer Tests Performed Urnls Dip Stick Auto w/o Microscopy POC [id number] Your Care Team Attending Physician - CARINE [...] DELGADO, Yin Patel Where: [facility] Patient Educationon 09-09-19 23 Patient Education Urology Benign Prostatic Hyperplasia Benign [...] Follow these instructions at home: ? Take ldai-ycz-vijulwk and prescription medicines only as told by [...] the medicine (more content not included)... Normal [facility] Urology Office/Clinic Noteon 09-08-2022 Urology Office/Clinic [...] With When Contact Information Yin GROVE MD, ANITA In 8 months [facility] [address], [place] [address] [phone] Additional Instructions: PSA Patient Education Benign Prostatic Hyperplasia Kimberly Torres, personally scribed for Dr. Grove on 09/08/2022 [...] lifetime) To (more content not included)... Normal [facility] Comment on above: Result Comment: Elec tronically Signed By: Yin GROVE MD\.br\Date and Time Signed: 09/08/22 12:22 EDT\.br\Electronically Co-Signed By: Kimberly Nash\.br\Date and Time Co-Signed: 09/08/22 12:20 EDT CBC AUTO DIFFon 05-03-2023 BASO # 0.1 103/ul Normal 0.0-0.1 [facility] Comment on above: Performed By: #### C BC #### [facility] [address] [place] [address] Dr. Shama Naylor Basophils/100 WBC (Bld) 0.8 % Normal 0.2-2.0 [facility] Comment on above: Performed By: #### C BC #### [facility] [address] [place] [address] Dr. Shama Naylor EO # 0.1 103/ul Normal 0.0-0.7 [facility] Comment on above: Performed By: #### C BC #### [facility] [address] [place] [address] Dr. Shama Naylor Eosinophils/100 WBC (Bld) 2.0 % Normal 0.9-7.0 [facility] Comment on above: Performed By: #### C BC #### [facility] [address] [place] [address] Dr. Shama Naylor Erythrocyte distribution width (RBC) [Ratio] 13.6 % Normal 11.0-15.0 [facility] Comment on above: Performed By: #### C BC #### [facility] [address] [place] [address] Dr. Shama Naylor Hematocrit (Bld) [Volume fraction] 40.0 % Critically low 42.0-54.0 [facility] Comment on above: Performed By: #### C BC #### [facility] [address] [place] [address] Dr. Shama Naylor Hemoglobin (Bld) [Mass/Vol] 13.6 g/dL Critically low 14.0-18.0 [facility] Comment on above: Performed By: #### C BC #### [facility] [address] [place] [address] Dr. Shama Naylor IG # 0.02 10e3/ul Normal 0.00-0.03 [facility] Comment on above: Performed By: #### C BC #### [facility] [address] [place] [address] Dr. Shama Naylor IG % 0.3 % Normal 0.0-0.5 [facility] Comment on above: Performed By: #### C BC #### [facility] [address] [place] [address] Dr. Shama Naylor LYMPH # 1.6 103/ul Normal 1.2-3.8 [facility] Comment on above: Performed By: #### C BC #### [facility] [address] [place] [address] Dr. Shama Naylor Lymphocytes/100 WBC (Bld) 26.0 % Normal 20.5-60.0 [facility] Comment on above: Performed By: #### C BC #### [facility] [address] [place] [address] Dr. Shama Naylor MANUAL DIFF REQ NO Normal [facility] Comment on above: Performed By: #### C BC #### [facility] [address] [place] [address] Dr. Shama Naylor MCH (RBC) [Entitic mass] 30.8 pg Normal 25.9-34.0 [facility] Comment on above: Performed By: #### C BC #### [facility] [address] [place] [address] Dr. Shama Naylor MCHC (RBC) [Mass/Vol] 34.0 g/dL Normal 29.9-35.[address] [facility] Comment on above: Performed By: #### C BC #### [facility] [address] [place] [address] Dr. Shama Naylor MCV (RBC) [Entitic vol] 90.7 fL Normal 80.0-94.0 [facility] Comment on above: Performed By: #### C BC #### [facility] [address] [place] [address] Dr. Shama Naylor MONO # 0.4 103/ul Normal 0.3-0.8 [facility] Comment on above: Performed By: #### C BC #### [facility] [address] [place] [address] Dr. Shama Naylor Monocytes/100 WBC (Bld) 6.1 % Normal 1.7-12.0 [facility] Comment on above: Performed By: #### C BC #### [facility] [address] [place] [address] Dr. Shama Naylor NEUT # 3.9 103/ul Normal 1.4-6.5 [facility] Comment on above: Performed By: #### C BC #### [facility] [address] [place] [address] Dr. Shama Naylor Neutrophils/100 WBC (Bld) 64.8 % Normal 43.0-75.0 [facility] Comment on above: Performed By: #### C BC #### [facility] [address] [place] [address] Dr. Shama Naylor Platelet mean volume (Bld) [Entitic vol] 10.3 fL Normal 9.5-13.5 [facility] Comment on above: Performed By: #### C BC #### [facility] [address] [place] [address] Dr. Shama Naylor PLT 165 103/ul Normal 150-450 [facility] Comment on above: Performed By: #### C BC #### [facility] [address] [place] [address] Dr. Shama Naylor RBC 4.41 106/ul Critically low 4.70-6.10 [facility] Comment on above: Performed By: #### C BC #### [facility] [address] [place] [address] Dr. Shama Naylor WBC 6.0 103/ul Normal 4.0-11.0 [facility] Comment on above: Performed By: #### C BC #### [facility] [address] [place] [address] Dr. Shama Naylor LIPID PROFILEon 07-02-2022 CHOL-HDL RATIO NORM SEE BELOW Normal [facility] Comment on above: Result Comment: 3.3 - 4.4 LOW RISK 4.4 - 7.1 AVERAGE RISK 7.1 - 11.0 MODERATE RISK >11.0 HIGH RISK Performed By: #### L IPID, BMP, LIVER #### [facility] [address] [address] [address] Shama Naylor Cholesterol [Mass/Vol] 157 mg/dL Normal <=200 [facility] Comment on above: Performed By: #### L IPID, BMP, LIVER #### [facility] [address] [address] [address] Shama Naylor Cholesterol in HDL [Mass/Vol] 58 mg/dL Normal 40-[address] [facility] Comment on above: Performed By: #### L IPID, BMP, LIVER #### [facility] [address] [address] [address] Shama Naylor Cholesterol in LDL [Mass/Vol] 81.8 mg/dL Normal [facility] Comment on above: Performed By: #### L IPID, BMP, LIVER #### [facility] [address] [address] [address] Shama Naylor Cholesterol.total /Cholesterol in HDL [Mass ratio] 2.7 {ratio} Normal [facility] Comment on above: Performed By: #### L IPID, BMP, LIVER #### [facility] [address] [address] [address] Shama Naylor HDL NORMAL > or = 60 mg/dl - LO W CARDIOVASCULAR RISK <40 mg/dl - HIGH CARDIOVASCULAR RISK Normal [facility] Comment on above: Performed By: #### L IPID, BMP, LIVER #### [facility] [address] [address] [address] Shama Naylor LDL CALC NORMAL SEE BELOW Normal The [facility] Comment on above: Result Comment: <100 mg/dl OPTIMAL 100 - 129 mg/dl NEAR OR ABOVE OPTIMAL 130 - 159 mg/dl BORDERLINE HIGH 160 - 189 mg/dl HIGH >190 mg/dl VERY HIGH Performed By: #### L IPID, BMP, LIVER #### [facility] [address] [address] [address] Shama Naylor Triglyceride [Mass/Vol] 86 mg/dL Normal <=[address] [facility] Comment on above: Performed By: #### L IPID, BMP, LIVER #### [facility] [address] [address] [address] Shama Naylor VLDL CALC 17.2 mg/dL Normal [facility] Comment on above: Performed By: #### L IPID, BMP, LIVER #### [facility] [address] [place] [address] Dr. Shama Naylor LIVER PROFILEon 07-02-2022 Albumin [Mass/Vol] 3.3 g/dL Critically low 3.4-5.0 [facility] Comment on above: Performed By: #### L IPID, BMP, LIVER #### [facility] [address] [place] [address] Dr. Shama Naylor Albumin/Globulin [Mass ratio] 1.0 {ratio} Normal [facility] Comment on above: Performed By: #### L IPID, BMP, LIVER #### [facility] [address] [place] [address] Dr. Shama Naylor ALP [Catalytic activity/Vol] 61 U/L Normal 46-[address] [facility] Comment on above: Performed By: #### L IPID, BMP, LIVER #### [facility] [address] [place] [address] Dr. Shama Naylor ALT [Catalytic activity/Vol] 38 U/L Normal 16-[address] [facility] Comment on above: Performed By: #### L IPID, BMP, LIVER #### [facility] [address] [place] [address] Dr. Shama Naylor AST [Catalytic activity/Vol] 14 U/L Critically low 15-[address] [facility] Comment on above: Performed By: #### L IPID, BMP, LIVER #### [facility] [address] [place] [address] Dr. Shama Naylor BILI, CONJUGATED 0.1 mg/dL Normal 0.0-0.2 [facility] Comment on above: Performed By: #### L IPID, BMP, LIVER #### [facility] [address] [place] [address] Dr. Shama Naylor Bilirubin [Mass/Vol] 0.4 mg/dL Normal 0.2-1.[address] [facility] Comment on above: Performed By: #### L IPID, BMP, LIVER #### [facility] [address] [place] [address] Dr. Shama Naylor Globulin (S) [Mass/Vol] 3.3 g/dL Normal [facility] Comment on above: Performed By: #### L IPID, BMP, LIVER #### [facility] [address] [place] [address] Dr. Shama Naylor Protein [Mass/Vol] 6.6 g/dL Normal 6.4-8.[address] [facility] Comment on above: Performed By: #### L IPID, BMP, LIVER #### [facility] [address] [place] [address] Dr. Shama Naylor PROF CHEM 8 (BAS METB)on Anion gap [Moles/Vol] 9.6 mmol/L Normal [facility] Comment on above: Performed By: #### L IPID, BMP, LIVER #### [facility] [address] [place] [address] Dr. Shama Naylor Calcium [Mass/Vol] 8.8 mg/dL Normal 8.5-10.[address] [facility] Comment on above: Performed By: #### L IPID, BMP, LIVER #### [facility] [address] [place] [address] Dr. Shama Naylor Chloride [Moles/Vol] 107 mmol/L Normal 98-[address] [facility] Comment on above: Performed By: #### L IPID, BMP, LIVER #### [facility] [address] [place] [address] Dr. Shama Naylor CO2 [Moles/Vol] 28.3 mmol/L Normal 21.0-32.0 [facility] Comment on above: Performed By: #### L IPID, BMP, LIVER #### [facility] [address] [place] [address] Dr. Shama Naylor Creatinine [Mass/Vol] 1.03 mg/dL Normal 0.70-1.30 [facility] Comment on above: Performed By: #### L IPID, BMP, LIVER #### [facility] [address] [place] [address] Dr. Shama Naylor EGFR-AF BURKINAN >60 Normal >=60 [facility] Comment on above: Performed By: #### L IPID, BMP, LIVER #### [facility] [address] [place] [address] Dr. Shama Naylor EGFR-NON AF BURKINAN >60 Normal >=60 [facility] Comment on above: Performed By: #### L IPID, BMP, LIVER #### [facility] [address] [place] [address] Dr. Shama Naylor Glucose [Mass/Vol] 103 mg/dL Normal 74-106 [facility] Comment on above: Performed By: #### L IPID, BMP, LIVER #### [facility] [address] [place] [address] Dr. Shama Naylor Potassium [Moles/Vol] 3.9 mmol/L Normal 3.5-5.1 [facility] Comment on above: Performed By: #### L IPID, BMP, LIVER #### [facility] [address] [place] [address] Dr. Shama Naylor Sodium [Moles/Vol] 141 mmol/L Normal 136-145 [facility] Comment on above: Performed By: #### L IPID BMP, LIVER #### [facility] [address] [place] [address] Dr. Shama Naylor Urea nitrogen [Mass/Vol] 14.0 mg/dL Normal 7.0-18.0 [facility] Comment on above: Performed By: #### L IPID, BMP, LIVER #### [facility] [address] [place] [address] Dr. Shama Naylor Urea nitrogen/Creatini ne [Mass ratio] 13.6 mg/mg Normal [facility] Comment on above: Performed By: #### L IPID, BMP, LIVER #### [facility] [address] [place] [address] Dr. Shama Naylor Office Visit (Cardiology)on 02-11-2022 Follow-up visit Diagnoses/Problems Assessed Paroxysmal SVT (supraventricular tachycardia) (427.0) (I47.1) Hypertension (401.9) (I10) HLD (hyperlipidemia) (272.4) (E78.5) Morbid obesity with BMI of 40.0-44.9, adult (278.01,V85.41) (E66.01,Z68.41) Former smoker (V15.82) (Z87.891) Quit in 1970s Orders Morbid obesity with BMI of 40.0-44.9, adult Healthy Weight Tips; Status:Complete; Done: 75Gtt4853 Some eating tips that can help you lose weight.; Status:Complete; Done: 65Uif6498 Paroxysmal SVT (supraventricular tachycardia) IO EKG Electrocardiogram- 12 Lead; Status:Complete; Done: 12Mvv1408 SocHx: Former smoker Tobacco Use Screening; Status:Complete; Done: 46Atx7785 Patient Instructions Please bring all medicines, vitamins, [...] negative for complaint. Vitals Vital Signs Recorded: 90Svr0983 11:05AM Heart Rate73, Apical Dayimvxs398, LUE, Sitting Poffwasbm36, LUE, Sitting Height6 ft 2 in Vghymf041 lb BMI Xdqzosmkrc73.57 kg/m2 BSA Calculated2.64 Tobacco Useb) No PHQ-2 [...] Feb 11 2022 5:56PM EST (Author) Normal [employer] Tobacco Screening.on 022 Adult depression screening assessment No [facility] 250 DO Work Phone: Fall risk assessment a) No falls within the last year [facility] 250 DO Work Phone: Tobacco use status [facility] b) No [facility] 250 DO Work Phone: Falls Risk Screeningon 08-12 Fall risk assessment a) No falls within the last year [facility] Mary Lou Bolden DO Work Phone: Office Visit (Cardiology)on 02-15-2021 [...] Weight Tips; Status:Complete - Retrospective Authorization; Done: 69Kce1246 SocHx: Former smoker Tobacco Use Screening; Status:Complete; Done: 68Qap9439 Unlinked Stop: Aspirin 81 MG Oral Tablet [...] negative for complaint. Vitals Vital Signs Recorded: 89Zvw4206 01:46PM Heart Rate72, R Radial Ybcruexg696, RUE, Sitting Lukvzmdpj98, RUE, Sitting Height6 ft 2 in Btjitd485 lb BMI Igdscuulve11.67 kg/m2 BSA Calculated2.61 Tobacco Useb) No Fall [...] a) No falls within the last year -[facility] 250 DO Work Phone: Tobacco use status [facility] b) No -[facility] 250 DO Work Phone: Blood Urea Nitrogenon 2020 Urea nitrogen [Mass/Vol] 14 mg/dL Normal 9-23 [facility] Comment on above: Order Comment: STAT FOR MRI Performed By: #### C REAT, BUN #### [place] [address] [place] Creatinineon 01-30-2021 Creatinine [Mass/Vol] 0.98 mg/dL Normal 0.64-1.27 [facility] Comment on above: Order Comment: STAT FOR MRI Performed By: #### C REAT, BUN #### [place] [address] [place] Creatinine Clr Calc Pharmacy 102.93 [facility] Comment on above: Order Comment: STAT FOR MRI Result Comment: PERF ORMED BY: [place] [address] PATHOLOGIST [employer]AREPOINT DESIGNER DEVELOPER NILDA PAUL M.D. Performed By: #### C REAT, BUN #### [address] Estimated GFR ( Zulma > 60 [facility] Comment on above: Order Comment: STAT FOR MRI Result Comment: GFR estimated reference range: According to KDOQI guidelines, <60 ml/min/1.73m2 is sufficient to diagnose a patient with chronic kidney disease. Performed By: #### C REAT, BUN #### [facility] [address] [place] [address] [place] Estimated GFR (Non- Am > 60 Normal [facility] Comment on above: Order Comment: STAT FOR MRI Performed By: #### C NICHO WINN #### [facility] [address] [id number] [facility] MR prostate wo/w conon 01-30 MR prostate wo/w con [facility] [employer] [address] [id number] MRI Report Signed Patient: Luis Luis MR#: [id number] 2028 : 1950 Acct:[id number] Age/Sex: 70 / M ADM Date: 01/30/21 Loc: MR Room: Type: [facility] Attending Dr: Yin Grove MD Ordering Provider: [...] PM COT by: Zachery Verma MD Diplomate, [employer] Report Completed: Jan 30, [...] STAFF 01/30/21 1352 Signed By: 01/30/21 1358 [facility] [facility] CARDIAC STRESS/REST INJE CTIONon 11-29-2019 [facility] CARDIAC STRESS/REST INJECTION Patient Name: LUIS LUIS STUDY: MYOCARDIAL PERFUSION STRESS TEST WITH LEXISCAN Performing facility: [facility], [address] [place] [address], [address], [place] [address] [facility] Provider: Mary Tam RN, [employer] PCP: Dr. Julianna Brewer Supervising provider: Sunday Rai DO, [facility] INDICATION: Chest Pain; HISTORY: Gender: M; Age: 69 y/o ; Height: 187.96 cm; Weight: 793.0516531 kg. High Cholesterol; HTN; Palpitations; Chest Pain; SOB; Quit smoking 40 years ago. COMPARISON: No comparison. ACCESSION NUMBER(S): [id number]; [id number]; [id number] ORDERING CLINICIAN: MARY TAM TECHNIQUE: TWO DAY [...] Electronically signed by: JAMIL JARRELL MD Normal [facility] Vital Signs Date Time Vital Sign Value Performing Clinician Facility 04-07-2023 13:06-0500 Body temperature 97.9 [degF] SARAVANAN High MD Work Phone: [facility] 04-07-2023 13:06-0500 Body weight 149.2 kg SARAVANAN High MD Work Phone: [facility] 04-07-2023 13:06-0500 Diastolic blood pressure 83 mm[Hg] SARAVANAN High MD Work Phone: [facility] 04-07-2023 13:06-0500 Heart rate 80 /min SARAVANAN High MD Work Phone: [facility] 04-07-2023 13:06-0500 Respiratory rate 16 /min SARAVANAN High MD Work Phone: [facility] 04-07-2023 13:06-0500 SaO2% (BldA) [Mass fraction] 96 % SARAVANAN High MD Work Phone: [facility] 04-07-2023 13:06-0500 Systolic blood pressure 139 mm[Hg] SARAVANAN High MD Work Phone: [facility] 02-10-2023 11:10-0500 Body height 188 cm Parveen Multani MD Work Phone: [facility] 02-10-2023 11:10-0500 Body mass index (BMI) [Ratio] 41.6 kg/m2 Parveen Multani MD Work Phone: [facility] 02-10-2023 11:10-0500 Body weight 146.97 kg Parveen Multani MD Work Phone: [facility] 02-10-2023 11:10-0500 Diastolic blood pressure 84 mm[Hg] Parveen Multani MD Work Phone: [facility] 02-10-2023 11:10-0500 Heart rate 67 /min Parveen Multani MD Work Phone: [facility] 02-10-2023 11:10-0500 Systolic blood pressure 132 mm[Hg] Parveen Multani MD Work Phone: [facility] 09-30-2022 13:55-0400 Body temperature 96.69 [degF] SARAVANAN High MD Work Phone: [facility] 09-30-2022 13:55-0400 Body weight 144.97 kg SARAVANAN High MD Work Phone: [facility] 09-30-2022 13:55-0400 Diastolic blood pressure 85 mm[Hg] SARAVANAN High MD Work Phone: [facility] 09-30-2022 13:55-0400 Heart rate 92 /min SARAVANAN High MD Work Phone: [facility] 09-30-2022 13:55-0400 Respiratory rate 18 /min SARAVANAN High MD Work Phone: [facility] 09-30-2022 13:55-0400 SaO2% (BldA) [Mass fraction] 94 % SARAVANAN High MD Work Phone: [facility] 09-30-2022 13:55-0400 Systolic blood pressure 143 mm[Hg] SARAVANAN High MD Work Phone: [facility] 09-08-2022 10:50-0400 Blood Pressure Location Yin GROVE [facility] 09-08-2022 10:50-0400 Diastolic blood pressure 73 mm[Hg] Yin GROVE [facility] 09-08-2022 10:50-0400 Heart rate 72 /min Yin GROVE [facility] 09-08-2022 10:50-0400 Respiratory rate 16 /min Yin GROVE [facility] 09-08-2022 10:50-0400 Systolic blood pressure 132 mm[Hg] Yin GROVE [facility] 04-01-2022 14:41-0500 Body temperature 97.2 [degF] SARAVANAN High MD Work Phone: [facility] 04-01-2022 14:41-0500 Body weight 142.79 kg SARAVANAN High MD Work Phone: [facility] 04-01-2022 14:41-0500 Diastolic blood pressure 90 mm[Hg] SARAVANAN High MD Work Phone: [facility] 04-01-2022 14:41-0500 Heart rate 82 /min SARAVANAN High MD Work Phone: [facility] 04-01-2022 14:41-0500 Respiratory rate 18 /min SARAVANAN High MD Work Phone: [facility] 04-01-2022 14:41-0500 SaO2% (BldA) [Mass fraction] 98 % SARAVANAN High MD Work Phone: [facility] 04-01-2022 14:41-0500 Systolic blood pressure 159 mm[Hg] SARAVANAN High MD Work Phone: [facility] 03-21-2022 11:25-0500 Blood Pressure Location Yin GROVE [facility] 03-21-2022 11:25-0500 Diastolic blood pressure 80 mm[Hg] Yin GROVE [facility] 03-21-2022 11:25-0500 Heart rate 76 /min Yin GROVE [facility] 03-21-2022 11:25-0500 Respiratory rate 16 /min Yin GROVE [facility] 03-21-2022 11:25-0500 Systolic blood pressure 138 mm[Hg] Yin GROVE [facility] 02-11-2022 11:05-0500 Body height 187.96 cm Kevin Brewer Work Phone: [facility] 250 DO Work Phone: 02-11-2022 11:05-0500 Body mass index (BMI) [Ratio] 40.57 kg/m2 Kevin Scott Naderer Work Phone: [facility] 250 DO Work Phone: 02-11-2022 11:05-0500 Body surface area Derived from formula 2.64 m2 Kevin Scott Naderer Work Phone: [facility] 250 DO Work Phone: 02-11-2022 11:05-0500 Body weight 143.34 kg Kevin Scott Naderer Work Phone: [facility] 250 DO Work Phone: 02-11-2022 11:05-0500 Diastolic blood pressure 78 mm[Hg] Kevin Scott Naderer Work Phone: [facility] 250 DO Work Phone: 02-11-2022 11:05-0500 Heart rate 73 /min Kevin Scott Naderer Work Phone: [facility] 250 DO Work Phone: 02-11-2022 11:05-0500 Systolic blood pressure 132 mm[Hg] Kevin Scott Naderer Work Phone: [facility] 250 DO Work Phone: 09-30-2021 10:54-0400 Blood Pressure Location Yin GROVE [facility] 09-30-2021 10:54-0400 Diastolic blood pressure 84 mm[Hg] Yni GROVE [facility] 09-30-2021 10:54-0400 Heart rate 75 /min [facility]in [facility] 09-30-2021 10:54-0400 Respiratory rate 16 /min Yin GROVE [facility] 09-30-2021 10:54-0400 Systolic blood pressure 136 mm[Hg] Yin [facility] 08-14-2021 09:47-0400 Body temperature 96.69 [degF] SARAVANAN High MD Work Phone: [facility] 08-14-2021 09:47-0400 Body weight 141.98 kg SARAVANAN High MD Work Phone: [facility] 08-14-2021 09:47-0400 Diastolic blood pressure 82 mm[Hg] SARAVANAN High MD Work Phone: [facility] 08-14-2021 09:47-0400 Heart rate 82 /min SARAVANAN High MD Work Phone: [facility] 08-14-2021 09:47-0400 Respiratory rate 20 /min SARAVANAN High MD Work Phone: [facility] 08-14-2021 09:47-0400 SaO2% (BldA) [Mass fraction] 94 % SARAVANAN High MD Work Phone: [facility] 08-14-2021 09:47-0400 Systolic blood pressure 131 mm[Hg] SARAVANAN High MD Work Phone: [facility] 08-12-2021 10:15-0400 Body height 187.96 cm Kevin Brewer Work Phone: [facility] 250 DO Work Phone: 08-12-2021 10:15-0400 Body mass index (BMI) [Ratio] 39.93 kg/m2 Kevin A Naderer Work Phone: [facility] 250 DO Work Phone: 08-12-2021 10:15-0400 Body surface area Derived from formula 2.62 m2 Kevin Scott Naderer Work Phone: [facility] 250 DO Work Phone: 08-12-2021 10:15-0400 Body weight 141.07 kg Kevin Scott Naderer Work Phone: [facility] 250 DO Work Phone: 08-12-2021 10:15-0400 Diastolic blood pressure 80 mm[Hg] Kevin Scott Naderer Work Phone: [facility] 250 DO Work Phone: 08-12-2021 10:15-0400 Heart rate 69 /min Kevin Lovelaceerer Work Phone: [facility] 250 DO Work Phone: 08-12-2021 10:15-0400 Systolic blood pressure 130 mm[Hg] Kevin Lovelaceerer Work Phone: [facility] 250 DO Work Phone: 08-09-2021 09:42-0400 Blood Pressure Location Yin GROVE [facility] 08-09-2021 09:42-0400 Diastolic blood pressure 80 mm[Hg] Yin GROVE [facility] 08-09-2021 09:42-0400 Heart rate 75 /min Yin GROVE [facility] 08-09-2021 09:42-0400 Respiratory rate 16 /min Yin GROVE [facility] 08-09-2021 09:42-0400 Systolic blood pressure 134 mm[Hg] Yin GROVE [facility] 02-15-2021 13:46-0500 Body height 187.96 cm Kevin Scott Naderer Work Phone: [facility] 250 DO Work Phone: 02-15-2021 13:46-0500 Body mass index (BMI) [Ratio] 39.67 kg/m2 Kevin Scott Naderer Work Phone: [facility] 250 DO Work Phone: 02-15-2021 13:46-0500 Body surface area Derived from formula 2.61 m2 Kevin Scott Naderer Work Phone: [facility] 250 DO Work Phone: 02-15-2021 13:46-0500 Body weight 140.16 kg Kevin Sonia Naderer Work Phone: [facility] 250 DO Work Phone: 02-15-2021 13:46-0500 Diastolic blood pressure 80 mm[Hg] Kevin Scott Naderer Work Phone: [facility] 250 DO Work Phone: 02-15-2021 13:46-0500 Heart rate 72 /min Kevin Scott Naderer Work Phone: [facility] 250 DO Work Phone: 02-15-2021 13:46-0500 Systolic blood pressure 118 mm[Hg] Kevin Scott Naderer Work Phone: [facility] 250 DO Work Phone: Encounters Encounter Date Encounter Type Care Provider Facility Start: 05-13-2024 ambulatory Yin R CARINE Facili ty:[facility] Start: 10-28-2023 End: 10-28-2023 ambulatory FRANCHESCA [place] Not Available Start: 07-13-2023 End: 07-13-2023 ambulatory FRANCHESCA [place] Not Available Start: 06-29-2023 End: 06-29-2023 ambulatory KEVIN BREWER Not Available Start: 05-11-2023 End: 05-12-2023 ambulatory Yin R CARINE Facility:[facility] [place] Start: 05-11-2023 End: 05-11-2023 Patient encounter procedure Yin Patel CARINE [facility] Start: 04-07-2023 End: 04-07-2023 ambulatory Demond HIGH Facility:[facility] Start: 04-07-2023 End: 04-07-2023 Patient encounter procedure Demond High MD Work Phone: Radiation Oncology Comment on above: Malignant neoplasm o f prostate (HCC) (Primary Dx) Start: 02-10-2023 End: 02-10-2023 ambulatory PARVEEN MULTANI [facility] Start: 02-10-2023 End: 02-10-2023 Office outpatient visit 25 minutes Parveen Multani MD Work Phone: [facility] Comment on above: Paroxysmal SVT (supr aventricular tachycardia) (Primary Dx); Primary hypertension; Mixed hyperlipidemia; Morbid obesity with BMI of 40.0-44.9, adult (CMS/HCC); Bifascicular block Start: 09-30-2022 End: 09-30-2022 ambulatory KEVIN Sonia DANIELLA Facility:[facility] Start: 09-30-2022 End: 09-30-2022 Patient encounter procedure Demond High MD Work Phone: Radiation Oncology Comment on above: Malignant neoplasm o f prostate (HCC) (Primary Dx) Start: 09-08-2022 End: 09-09-2022 ambulatory Yin GROVE Facility:[facility] [place] Start: 09-08-2022 End: 09-08-2022 Patient encounter procedure Yin GROVE [facility] Start: 07-25-2022 Rx Renewal Kevin Brewer Work Phone: [facility] 250 DO Work Phone: Start: 07-02-2022 End: 07-03-[address] KEVIN BREWER Facility: Start: 04-07-2022 Rx Renewal Kevin Brewer Work Phone: [facility] 250 DO Work Phone: Start: 04-01-2022 End: 04-01-2022 ambulatory Yancy Oneill APRN.[employer]ER Work Phone: Hematology/Oncology Comment on above: Prostate cancer (HCC ) Start: 04-01-2022 End: 04-01-2022 Patient encounter procedure Yancy Oneill APRN.[employer]ER Work Phone: [facility] Comment on above: Malignant neoplasm o f prostate (HCC) (Primary Dx) Start: 03-21-2022 End: 03-21-2022 Patient encounter procedure Yin GROVE [facility] Start: 03-11-2022 End: 03-12-[address] KEVIN BREWER Facility:[facility] Start: 02-11-2022 ambulatory Parveen Multani II Facility: Start: 02-11-2022 Office outpatient vi sit 15 minutes Kevin Brewer Work Phone: [facility] 250 DO Work Phone: Start: 02-05-2022 Telephone encounter G Chavez High MD Work Phone: Radiation Oncology Comment on above: Future Appointment Start: 01-14-2022 Rx Renewal [facility] Brew[facility] Work Phone: Start: 09-30-2021 End: 09-30-2021 Patient encounter procedure Yin GROVE [facility] Start: 09-23-2021 End: 09-24-[address] KEVIN BREWER Facility: Start: 08-14-2021 End: 08-14-2021 Patient encounter procedure Demond High MD Work Phone: Radiation Oncology Comment on above: Malignant neoplasm o f prostate (HCC) (Primary Dx) Start: 08-12-2021 Patient encounter procedure Kevin Brewer Work Phone: [facility] DO Work Phone: Start: 08-12-2021 ambulatory Parveen abdalla [facility] Facility: Start: 08-09-2021 End: 08-09-2021 Patient encounter procedure Yin GROVE [facility] Start: 08-05-2021 Telephone encounter G Chavez High MD Work Phone: Radiation Oncology Comment on above: FYI-No Action Needed ; Covid19 Concern Start: 07-25-2021 Patient encounter procedure Demond High MD Work Phone: [facility] Start: 07-25-2021 Radiation Oncology Note Demond High MD Work Phone: Radiation Oncology Comment on above: Simulation Note Start: 07-24-2021 KASSIE Brewer [facility] Work Phone: Start: 07-16-2021 End: 05-18-[address] KEVIN BREWER Facility:[facility] Start: 07-04-2021 End: 07-04-2021 Patient encounter procedure Abdulaziz DAWSON [facility] [place] Start: 06-27-2021 End: 06-28-2021 Patient encounter [...] Simulation Note Start: 04-26-2021 Rx Renewal Kevin Brewer Work Phone: [facility] 250 DO Work Phone: Start: 02-15-2021 ambulatory Parveen Multani II Facility: Start: 02-15-2021 Office outpatient vi sit 15 minutes Kevin Brewer Work Phone: [facility] 250 DO Work Phone: Start: 01-22-2021 Rx Renewal Kevin Brewer Work Phone: [facility] 250 DO Work Phone: Procedures Date Procedure Procedure Detail Performing Clinician Start: 03-31-2023 PSA screening [facility] Provi kilo Start: 02-10-2023 ECG 12-LEAD PARVEEN PATEL Start: 02-10-2023 Ecg routine ecg w/le ast 12 lds w/i&r Parveen Multani MD Work Phone: Start: 08-29-2022 PSA screening [facility] Provi kilo Start: 03-11-2022 End: 03-11-2022 PSA screening [facility] Provider Comment on above: Performed By: #### P SAD #### [facility] [address] [address] [address] Shama Naylor Start: 09-23-[address] KEVIN BROOKS Comment on above: Performed By: #### P SAD #### [facility] [address] [address] [address] Shama Naylor Start: 07-16-2021 End: 07-16-2021 PSA screening [facility] Provider Comment on above: Performed By: #### P SAD #### [facility] [address] [address] [address] Shama Naylor Start: 06-27-2021 Brachytherapy Yin W ELFEGOBONIFACIO Start: 03-14-2021 Transrectal biopsy o f prostate Abdulaziz DAWSON Arthroplasty of wrist Abdulaziz DAWSON Colonoscopy Abdulaziz DAWSON Surgical repair of u pper extremity Kevin Brewer Work Phone: Total colonoscopy Kevin Lovelace ereamanda Work Phone: Plan of Treatment Date Care Activity Detail Author Start: 03-08-2024 End: 03-08-2024 Patient encounter procedure 03/08/2024 9:00 AM EST Office Visit [facility] [address] [id number] Parveen Multani MD 703 [facility] [address], [address] [address] [facility] Start: 04-07-2023 End: 07-07-2023 Prostate specific Ag [Mass/volume] in Serum or Plasma PSA/PROSTSPECAG DIAG Lab Routine Malignant neoplasm of prostate (HCC) Expected: 04/07/2023, Expires: 07/07/2023 [facility] Work Phone: Comment on above: Expected: 04/07/2023 , Expires: 07/07/2023 Start: 04-02-2023 End: 06-02-2023 Prostate specific Ag [Mass/volume] in Serum or Plasma PSA/PROSTSPECAG DIAG Lab Routine Malignant neoplasm of prostate (HCC) Expected: 04/02/2023 (Approximate), Expires: 06/02/2023 [facility] Work Phone: Comment on above: Expected: 04/02/2023 (Approximate), Expires: 06/02/2023 Start: 03-02-2023 Advance Directive Discussion Advance Directive Discussion [facility] Start: 03-02-2023 Depression Assessment Depression Ass [facility] Start: 02-10-2023 FUV, Provider: Parveen Multani, Status: Pen, Time: 11:00 AM FUV, Provider: Parveen Multani, Status: Pen, Time: 11:00 AM [facility] 250 DO Work Phone: Start: 10-31-2022 Covid-19 Vaccine () Covid-19 Vaccine () [facility] Start: 10-31-2022 Influenza vaccination C [facility] Start: 03-02-2022 ADVANCE DIRECTIVE DISCUSSION ADVANCE DIRECTIVE DISCUSSION [facility] Start: 03-02-2022 DEPRESSION ASSESSMENT [facility] Start: 02-11-2022 FUV, Provider: Parveen Multani, Status: Pen, Time: 10:50 AM FUV, Provider: Parveen Multani, Status: Pen, Time: 10:50 AM [facility] 250 DO Work Phone: Start: 10-31-2021 Influenza vaccination C [facility] Start: 04-15-2021 COVID-19 VACCINE (4 - Booster for Pfizer series) COVID-19 VACCINE (4 - Booster for Pfizer series) [facility] Start: 03-02-2021 ADVANCE DIRECTIVE DISCUSSION ADVANCE DIRECTIVE DISCUSSION [facility] Start: 03-02-2021 DEPRESSION ASSESSMENT [facility]ION ASS [facility] Start: 02-15-2021 FUV, Provider: Parveen Mulatni, Status: Pen, Time: 1:30 PM FUV, Provider: Parveen Multani, Status: Pen, Time: 1:30 PM [facility] 250 DO Work Phone: Start: 02-07-2021 COVID-19 VACCINE (4 - Booster for Pfizer series) COVID-19 VACCINE (4 - Booster for Pfizer series) [facility] Start: 02-07-2021 COVID-19 VACCINE (4 - Pfizer series) COVID-19 VACCINE (4 - Pfizer series) [facility] Start: 07-02-2015 Abdominal aortic aneurysm screening Abdominal Aortic Aneurysm (AAA) Screening [facility] Start: 07-02-2015 Pneumococcal Vaccine : 65+ (1 of 1 - PCV) Pneumococcal Vaccine: 65+ (1 of 1 - PCV) [facility] Start: 07-02-2015 Pneumococcal Vaccine : 65+ Years (1 - PCV) Pneumococcal Vaccine: 65+ Years (1 - PCV) [facility] Start: 07-02-2015 PNEUMOCOCCAL: 65+ (1 - PCV) PNEUMOCOCCAL: 65+ (1 - PCV) [facility] Start: 07-02-2015 PNEUMOVAX AGE 65 AND OVER WITH 5YR LOOKBACK (#1) PNEUMOVAX AGE 65 AND OVER WITH 5YR LOOKBACK (#1) [facility] Start: 2010 RSV Vaccine (1 - 1-d ose 60+ series) RSV Vaccine (1 - 1-dose 60+ series) [facility] Start: 2000 SHINGRIX VACCINE (1 of 2) SHINGRIX VACCINE (1 of 2) [facility] Start: 2000 Zoster Vaccines (1 of 2) Zoste r Vaccines (1 of 2) [facility] Start: 07-02-1995 COLOGUARD (FIT-DNA) COLOGUARD (FIT-D NA) [facility] Start: 07-02-1995 Colonoscopy COLONOSCOPY [facility] Start: 07-02-1995 COLORECTAL CANCER SCREENING COLORECTAL CANCER SCREENING [facility] Start: 07-02-[address] COLONOGRAPHY [facility] Start: 07-02-1995 DIABETES SCREEN DIABETES SCREEN [facility] Start: 07-02-1995 Diabetes Screening Diabetes Screenin g [facility] Start: 07-02-1995 FECAL OCCULT BLOOD FECAL OCCULT BLOO D [facility] Start: 07-02-1995 Screening for malign ant neoplasm of colon [facility] Start: 07-02-1995 SIGMOIDOSCOPY SIGMOIDOSCOPY [facility] Start: 1985 Lipid panel Lipid Screening [facility] Start: 1985 LIPID SCREEN LIPID SCREEN [facility] Start: 1972 DTaP/Tdap/Td Vaccine s (1 - Tdap) DTaP/Tdap/Td Vaccines (1 - Tdap) [facility] Start: 1969 SHINGRIX VACCINE (1 of 2) SHINGRIX VACCINE (1 of 2) [facility] Start: 1969 Urine microalbumin profile [facility] Start: 1968 Diabetes mellitus screening Diabetes Screening [facility] Start: 1968 HEPATITIS C SCREENING HEPATITIS C [facility] Start: 1968 Hepatitis C screening Hepatitis C [facility] Start: 1962 Adult depression screening assessment DEPRESSION SCREENING [facility] Start: 1956 PNEUMOCOCCAL: 65+ (1 - PCV) PNEUMOCOCCAL: 65+ (1 - PCV) [facility] Start: 1950 ABDOMINAL AORTIC ANEURYSM SCREENING ABDOMINAL AORTIC ANEURYSM SCREENING [facility] Start: 1950 Abdominal aortic aneurysm screening Abdominal Aortic Aneurysm Screening [facility] Start: 1950 Lipid panel Lipid Panel [facility] Start: 1950 Medicare Annual Well ness Visit Medicare Annual Wellness Visit (AWV) [facility] Start: 1950 Screening for malign ant neoplasm of colon [facility] Immunizations Immunization Date Immunization Notes Care Provider Concha lopez 11-28-2021 Fluzone High-Dose Quadrivalent 0.7 ML Intramuscular Suspension Prefilled Syringe Kevin Brewer Work Phone: [facility] 250 DO Work Phone: 11-28-2021 influenza virus vaccine, unspecified formulation Yin GROVE [facility] 11-28-2021 influenza, high dose seasonal, preservative-free Parveen Multani MD Work Phone: [facility] Work Phone: 12-13-2020 Pfizer-BioNTech COVID-19 Vacc 30 MCG/0.3ML Intramuscular Suspension Kevin A Naderer Work Phone: [facility] 05-19-2020 Pfizer-BioNTech COVID-19 Vacc 30 MCG/0.3ML Intramuscular Suspension Kevin A Naderer Work Phone: [facility] 04-28-2020 Pfizer-BioNTech COVID-19 Vacc 30 MCG/0.3ML Intramuscular Suspension Kevin A Naderer Work Phone: [facility] 03-02-2020 SARS-CoV-2 (COVID-19 ) mRNA [id number] vax Abdulaziz DAWSON [facility] Comment on above: Result Comment: pt i s fully vaccinated and has received the booster but does not remember the dates 12-14-2019 influenza virus vaccine, unspecified formulation Yin GROVE [facility] 12-14-2019 influenza, injectabl e, quadrivalent, preservative free Kevin A Naderer Work Phone: [facility] 250 DO Work Phone: 12-01-2019 influenza virus vaccine, unspecified formulation Yin GROVE [facility] 12-01-2019 influenza, seasonal, injectable Kevin A Naderer Work Phone: [facility] 250 DO Work Phone: 02-09-2012 influenza virus vaccine, unspecified formulation Yin GROVE [facility] 02-09-2012 influenza, seasonal, injectable Kevin A Naderer Work Phone: -[facility] 250 DO Work Phone: Payers Date Payer Category Payer Private Health Insurance AETSARAVANAN Scott ETSARAVANAN MEDICARE SUPPLEMENT [id number] 2020-Present [phone] [address] [address] [place] [address] Indemnity [id number] 2020 Private Health Insurance [id number] 2015 Medicare MEDICARE MEDICAR E A AND B [id number] 2015-Present [phone] [address] [address] [place] [address] Medicare [id number] 2015 Medicare [id number] 1959 Medicare [id number] 1959 Private Health Insurance [id number] 1950 Unknown [id number] 1950 Unknown [id number] 1950 Unknown [id number] 1950 Unknown [id number] 2.593 1950 Unknown [id number] [id number]. 2.593 1950 Unknown [id number] 2.16.840.1.056400.3.579. 2.593 1950 Unknown [id number] 2.16.840.1.115542.3.579. 2.593 1950 Unknown [id number] 2.16.840.1.065396.3.579. 2.1244 1950 Unknown [id number] 2.16.840.1.342383.3.579. 2.727 1950 Unknown [id number] 2.16.840.1.375497.3.579. 2.727 1950 Unknown [id number] 2.16.840.1.318414.3.579. 2.727 1950 Unknown [id number] 2.16.840.1.380311.3.579. 2.1259 1950 Unknown [id number] 2.16.840.1.619227.3.579. 2.1259 1950 Unknown [id number] 2.16.840.1.371409.3.579. 2.1259 Unknown Social History Date Type Detail Facility Start: 05-20-2021 End: 09-30-2022 Alcohol use Alcohol use [facility] Comment on above: 4 8 oz cups of coffe e/occasional decaf coffee; Quit in 1970s; Start: 04-03-2021 End: 04-07-2023 Tobacco smoking status NHIS Ex-smoker [facility] End: 04-03-1981 History of tobacco use Current smoker [facility] End: 04-03-1981 History of tobacco use Pipe Smoker [facility] End: 04-03-1981 History of tobacco use Cigar Smoker [facility] Start: 04-03-2021 End: 04-07-2023 Tobacco use and exposure Smokeless tobacco non-user [facility] Start: 05-20-2021 End: 04-07-2023 Alcohol intake Current drinker of alcohol (finding) [facility] Start: 04-03-2021 History SDOH Alcohol Comment 2-3 times/wk [facility] Start: 1950 Sex Assigned At Not on file [facility] Start: 06-01-2021 End: 02-10-2023 Exposure to SARS-CoV-2 (event) Not sure [facility] Start: 05-20-2021 End: 09-30-2022 Sex Assigned At Male [facility] Breonna Tobacco smoking status No Smokin g Status Entered [facility] Start: 03-21-2022 Tobacco smoking status Never s moked tobacco (finding) [facility] Start: 05-11-2023 Tobacco smoking status Never [facility] End: 03-02-1969 History of tobacco use Cigarette Smoker [facility] Work Phone: Start: 02-06-2023 Alcohol Comment [facility] Work Phone: Functional Status Date Assessment Result Facility 05-11-2023 Functional Status N/A [facility] 09-08-2022 Functional Status N/A [facility] 03-21-2022 Functional Status N/A [facility] 09-30-2021 Functional Status N/A [facility] Clinical Notes 06-11-2021 to 05-11-2023 Kelly [...] treatment? Where to find more information [employer]: www.cancer.org [employer]: www.auanet.org Contact a health care [...] provider. Document Revised: 08/12/2021 Document Reviewed: 08/12/2021 [employer] Patient Education 2022 [place]. Follow Up Care 09/08/2022 12:26:22 With:CARINE DELGADO, Yin Patel, URL Address: [facility] [address], [place] [phone] When: Unknown Comments:PSA in 6 mos and f/u in 1 yr w/ repeat PSA [facility] 04-07-2023 Note HNO ID: [id number] Author: Demond HIGH MD Service: ? Author Type: Physician Type: Progress Notes Filed: 04/15/2023 15:32 Note Text: Radiation Oncology - Follow Up Note PATIENT NAME: Luis Luis PATIENT DIAGNOSIS: Prostate adenocarcinoma, initial PSA 4.3, biopsy Belleview score 3 + 4 = 7 (grade [...] ASSESSMENT/PLAN: Prostate adenocarcinoma, initial PSA 4.3, biopsy Belleview score 3 + 4 = 7 (grade group 2), clinical stage T2a, N0, M0, stage IIB [T1-T2, N0, M0, PSA <20, GG 2] (AJCC 8th ed.), s/p TRUS Random and MRI fusion biopsy. PSA remains undetectable. No postradiation related issues. Plan see patient back in one year for further postradiation follow-up. Signed by: Demond High MD cc: Kevin Brewer MD ([facility]) [address] [place] [address] Portions of the above note extracted and edited from previous visit as well as active information included in the EMR. [facility] 04-07-2023 Nurse Note AUA=12 documented in this encounter [facility] 04-07-2023 History of Present illness [...] ASSESSMENT/PLAN: Prostate adenocarcinoma, initial PSA 4.3, biopsy Belleview score 3 + 4 = 7 (grade group 2), clinical stage T2a, N0, M0, stage IIB [T1-T2, N0, M0, PSA <20, GG 2] (AJCC 8th ed.), s/p TRUS Random and MRI fusion biopsy. PSA remains undetectable. No postradiation related issues. Plan see patient back in one year for further postradiation follow-up. Signed by: Demond High MD cc: Kevin Brewer MD ([facility]) [address] [place] [address] Portions of the above note extracted and edited from previous visit as well as active information included in the EMR. documented in this encounter [facility] 02-10-2023 History of Present illness [...] in office today documented in this encounter [facility] Work Phone: 02-10-2023 Instructions Felix Caal [...] of your visit. documented in this encounter [facility] Work Phone: 09-30-2022 Note HNO ID: [id number] Author: Demond High MD Service: ? Author Type: Physician Type: Progress Notes Filed: 10/03/2022 8:14 AM Note Text: Radiation Oncology - Follow Up Note PATIENT NAME: Luis Luis PATIENT DIAGNOSIS: Prostate adenocarcinoma, initial PSA 4.3, biopsy Belleview score 3 + 4 = 7 (grade [...] ASSESSMENT/PLAN: Prostate adenocarcinoma, initial PSA 4.3, biopsy Belleview score 3 + 4 = 7 (grade group 2), clinical stage T2a, N0, M0, stage IIB [T1-T2, N0, M0, PSA <20, GG 2] (AJCC 8th ed.), s/p TRUS Random and MRI fusion biopsy. PSA remains undetectable. No postradiation related issues. Plan see patient back in 6 months for further postradiation follow-up. Signed by: Demond High MD cc: Kevin Brewer MD ([facility]) [address] [place] [phone] Portions of the above note extracted and edited from previous visit as well as active information included in the EMR. [facility] 09-30-2022 History of Present illness Narrative Radiation [...] Demond High MD cc: Kevin Brewer MD ([facility]) [address] [facility] [place] [place] [address] Portions of the above note extracted and edited from previous visit as well as active information included in the EMR. documented in this encounter [facility] 09-30-2022 Nurse Note AUA 14 Naida Jacobo RN documented in this encounter [facility] 09-08-2022 Hospital Discharge instructions Patient [...] urethra. Follow these instructions at home: Take gfyz-nvi-exnhsen and prescription medicines only as told by [...] provider. Document Revised: 09/04/2021 Document Reviewed: 09/04/2021 [employer] Patient Education 2022 [place]J. Follow Up Care 03/21/2022 12:44:25 With:CARINE DELGADO, Yin Patel, URL Address: [facility] [address] , [place] [address]- [phone] When:Within 8 Month(s) Comments:PSA [facility] Yang 04-01-2022 History of Present illness Narrative [...] Yancy Oneill APRN.ANNA documented in this encounter [facility] 04-01-2022 History of Present illness Narrative Radiation Oncology - Follow Up Note PATIENT NAME: Luis Luis PATIENT DIAGNOSIS: Prostate adenocarcinoma, initial PSA 4.3, biopsy Belleview score 3 + 4 = 7 (grade [...] ASSESSMENT/PLAN: Prostate adenocarcinoma, initial PSA 4.3, biopsy Belleview score 3 + 4 = 7 (grade [...] Demond High MD cc: Kevin Brewer MD ([facility]) [address] [place] [address] Portions of the above note extracted and edited from previous visit as well as active information included in the EMR. documented in this encounter [facility] 04-01-2022 Nurse Note AUA 14 Naida Jacobo RN documented in this encounter [facility] 03-21-2022 Hospital Discharge instructions Patient [...] who: Are older than age 65. Are -Chinese. Are obese. Have a family history of [...] cells. Follow these instructions at home: Take wcdr-mkb-kwhvrxw and prescription medicines only as told by [...] 02/16/2006 Document Revised: 01/29/2018 Document Reviewed: 10/27/2016 [employer] Patient Education MeeDoc. Follow Up Care 09/30/2021 11:58:37 With:CARINE DELGADO, Yin Patel, URL Address: [address] [place], [place] [id number]- When: Unknown Comments:6 mos w/ PSA [facility] 02-06-2022 Miscellaneous Notes Patient has been rescheduled & notified of appointment. Monica Rodríguez Pt has PSA scheduled with Dr Grove in March and would like to postpone his follow up visit with Dr High until after that is done. PSS- please call pt and reschedule. He will be awaiting your call. Naida Jacobo RN documented in this encounter [facility] 09-30-2021 Hospital Discharge instructions Patient [...] urethra. Follow these instructions at home: Take xxjw-dfs-xtsxlfx and prescription medicines only as told by [...] 02/16/2006 Document Revised: 01/11/2019 Document Reviewed: 03/23/2017 [employer] Patient Education [employer]ee[employer]. Follow Up Care 04/01/2021 13:09:22 With:CARINE DELGADO, Yin aPtel, URL Address: [facility] [address] , [place] [address] [phone] When:Within 6 Month(s) Comments:w/ PSA [facility] 08-14-2021 Nurse Note AUA 18 Naida Jacobo RN documented in this encounter [facility] 08-14-2021 History of Present illness Narrative Radiation Oncology - Follow Up Note PATIENT NAME: Luis Luis PATIENT DIAGNOSIS: Prostate adenocarcinoma, initial PSA 4.3, biopsy Belleview score 3 + 4 = 7 (grade [...] Demond High MD cc: Kevin Brewer MD ([facility]) [address] [place] [address] documented in this encounter [facility] 08-09-2021 Hospital Discharge instructions Patient [...] including vitamins, herbs, eye drops, creams, and vnru-drm-kvymhop medicines. Any problems you or family members [...] 07/27/2006 Document Revised: 01/29/2018 Document Reviewed: 02/25/2017 [employer] Patient Education 2020 MON[place]J. Follow Up Care 07/04/2021 11:13:01 With:CARINE DELGADO, Yin Patel, URL Address: [facility] [address], [place] [address] [phone] When: Unknown [facility] 08-05-2021 Miscellaneous Notes Ok to resched Luis called in stating he tested positive for COVID-19 on 08/03/21 and his symptoms started , 08/01/21. He has a scheduled 6wk post implant follow up on 08/08/21. He will call us later in the week to possibly reschedule his follow up. Kelly Guo LPN documented in this encounter [facility] 07-25-2021 History of Present illness Narrative Patient: Luis Luis Date:07/25/2021 [facility] Department of Radiation Oncology [facility] RADIATION ONCOLOGY POST SEED IMPLANT SIMULATION NOTE [...] M.D. 23:26 PM documented in this encounter [facility] 06-27-2021 History of Present illness Narrative Date: 06/27/21 Facility: [facility] Procedure: prostate transperineal brachytherapy implant Sources: [id number] [...] High MD (Signed electronically to expedite mailing) [facility] documented in this encounter [facility] 06-11-2021 History of Present illness [...] Demond High MD documented in this encounter [facility] 06-11-2021 History of Present illness Narrative LUIS LUIS [id number] 06/11/2021 [facility] Department of Radiation Oncology [facility] RADIATION ONCOLOGY SIMULATION NOTE DATE OF SIMULATION: 06/11/2021 MACHINE: [employer] Flex Focus 500 Diagnosis: 185 (Prostate Gland) AREA:Prostate PATIENT POSITION: Supine CONTRAST: None PROTOCOL: None CONCURRENT THERAPY: None FIXATION DEVICE: UTS Stabilization device by [employer]. PROCEDURE: Patient was simulated in exaggerated dorsal lithotomy position. Serial images of the prostate were acquired using TRUS and reconstructed in 3D space. These images were imported into [employer] Prostate planning system where a plan was generated. ASSESSMENT/PLAN: Patient tolerated simulation procedure well. Electronically Signed Chavez High M.D. / LAURA 25:05 PM documented in this encounter [facility] Evaluation + Plan note Future Appointments Appointment Date:08/05/2021 08:45:00 AM Scheduled Provider:Yin GROVE MD Location:[facility] Appointment Type:URO Office Visit Appointment Date:09/30/2021 10:30:00 AM Scheduled Provider:Yin GROVE MD Location:[facility] Appointment Type:URO Office Visit Future Scheduled TestsPT & PTT 03/05/21BUN 03/05/21Creatinine 03/05/21Electrolyte Panel 03/05/21CBC w/ Auto Diff 03/05/21XR Chest 2 Views 03/05/21 [facility] Evaluation + Plan note Future Appointments Appointment Date:09/30/2021 10:30:00 AM Scheduled Provider:Yin GROVE MD Location:[facility] Appointment Type:URO Office Visit Diagnostic Tests PendingPSA Total 08/09/21 Future Scheduled TestsPT & PTT 03/05/21BUN 03/05/21Creatinine 03/05/21Electrolyte Panel 03/05/21CBC w/ Auto Diff 03/05/21XR Chest 2 Views 03/05/21 [facility] Evaluation + Plan note Future Appointments Appointment Date:03/21/2022 11:00:00 AM Scheduled Provider:Yin GROVE MD Location:[facility] Appointment Type:URO Office Visit Diagnostic Tests PendingPSA Total 09/30/21 Future Scheduled TestsPT & PTT 03/05/21BUN 03/05/21Creatinine 03/05/21Electrolyte Panel 03/05/21CBC w/ Auto Diff 03/05/21XR Chest 2 Views 03/05/21 [facility] Evaluation + Plan note Future Appointments Appointment Date:09/08/2022 10:15:00 AM Scheduled Provider:Yin GROVE MD Location:[facility] Appointment Type:URO Office Visit Diagnostic Tests PendingPSA Total 06/30/22 [facility] Evaluation + Plan note Future Appointments Appointment Date:05/11/2023 09:45:00 AM Scheduled Provider:Yin GROVE MD Location:[facility] Appointment Type:URO Office Visit Diagnostic Tests PendingPSA Total 09/08/22 [facility] Evaluation + Plan note Future Appointments Appointment Date:05/13/2024 09:45:00 AM Scheduled Provider:Yin GROVE MD Location:[facility] Appointment Type:URO Office Visit Diagnostic Tests PendingPSA Total 05/11/23 [facility] Evaluation note Diagnosis Malignant neoplasm of prostate (HCC)- Primary Malignant neoplasm of prostate [facility] Malignant neoplasm of prostate (HCC)- Primary Malignant neoplasm of prostate [facility] Diagnosis Malignant neoplasm of prostate (HCC)- Primary Malignant neoplasm of prostate [facility] Diagnosis Prostate cancer (HCC) Malignant neoplasm of prostate [facility] Diagnosis Malignant neoplasm of prostate (HCC)- Primary Malignant neoplasm of prostate [facility] Diagnosis Malignant neoplasm of prostate (HCC)- Primary Malignant neoplasm of prostate [facility] Diagnosis Paroxysmal SVT (supraventricular tachycardia)- Primary Primary hypertension Unspecified essential hypertension Mixed hyperlipidemia Morbid obesity with BMI of 40.0-44.9, adult (CMS/HCC) Bifascicular block Other bilateral bundle branch block documented in this encounter [facility] Work Phone: Evaluation note* Diagnosis Malignant neoplasm of prostate (HCC)- Primary Malignant neoplasm of prostate [facility] of [facility] NarrativePatient returns in [...] diet lifestyle modific ation exercise and weight loss.[facility] [employer] Work Phone: History of Present illness Narrative* [...] merits of diet exercise and weight loss. [facility] [employer] Work Phone: Hospital course Narrative No data available for this section [facility] Discharge instructions No data available for this section [facility] note No data available for this section [facility] Purpose Family History No Family [...] Procedures ECG 12 Lead Parveen Multani MD [address] [place] [address] 2, [place] [phone] Referral ID Status Reason Start Date Expiration Date V isits Requested Visits Authorized [id number] Pending Review 02/10/2023 02/10/2024 1 1 Specialty Diagnoses / Procedures Referred By Myrtle romeo Referred To Contact Cardiology Diagnoses Paroxysmal SVT (supraventricular tachycardia) Procedures Follow Up In Cardiology Parveen Multani MD [address] [place] [address] [place] [address], [address] [address] Parveen Multani MD [address] [place] [address] 2, [place] [phone] Referral ID Status Reason Start Date Expiration Date V isits Requested Visits Authorized [id number] Authorized 02/10/2023 02/10/2024 1 1 Additional Source Comments (unrecognized sect ion and content) No Status Records FoundNo Status Records FoundNo Status Records FoundNo Status Records FoundNo Status Records FoundNo Status Records FoundNo Status Records FoundNo Status Records FoundNo Status Records Found INFORMATION SOURCE (unrecogn ized section and content) DATE CREATED AUTHOR 12/03/2019 [facility] DATE CREATED AUTHOR AUTHOR'S ORGANIZ ATION 04/21/2021 [facility] DATE CREATED AUTHOR AUTHOR'S ORGANIZ ATION 02/12/2022 [facility] DATE CREATED AUTHOR AUTHOR'S ORGANIZ ATION 02/12/2022 [facility] DATE CREATED AUTHOR AUTHOR'S ORGANIZ ATION 07/10/2022 [facility] [place] [facility] DATE CREATED AUTHOR AUTHOR'S ORGANIZ ATION 02/13/2023 [facility] DATE CREATED AUTHOR AUTHOR'S ORGANIZ ATION 04/17/2023 [facility] DATE CREATED AUTHOR AUTHOR'S ORGANIZ ATION 05/13/2023 [facility] DATE CREATED AUTHOR AUTHOR'S ORGANIZ ATION 10/30/2023 [facility] EPIC Source Comments (unrecognize d section and content) In the event this informatio n is protected by the Federal Confidentiality of Alcohol and Drug Abuse Patient Records regulations: The Federal rules restrict any use of the information to criminally investigate or prosecute any alcohol or drug abuse patient.[facility] the event this information is protected by the Federal Confidentiality of Alcohol and Drug Abuse Patient Records regulations: The Federal rules restrict any use of the information to criminally investigate or prosecute any alcohol or drug abuse patient.[facility] the event this information is protected by the Federal Confidentiality of Alcohol and Drug Abuse Patient Records regulations: The Federal rules restrict any use of the information to criminally investigate or prosecute any alcohol or drug abuse patient.[facility] the event this information is protected by the Federal Confidentiality of Alcohol and Drug Abuse Patient Records regulations: The Federal rules restrict any use of the information to criminally investigate or prosecute any alcohol or drug abuse patient.[facility] the event this information is protected by the Federal Confidentiality of Alcohol and Drug Abuse Patient Records regulations: The Federal rules restrict any use of the information to criminally investigate or prosecute any alcohol or drug abuse patient.[facility] the event this information is protected by the Federal Confidentiality of Alcohol and Drug Abuse Patient Records regulations: The Federal rules restrict any use of the information to criminally investigate or prosecute any alcohol or drug abuse patient.[facility] the event this information is protected by the Federal Confidentiality of Alcohol and Drug Abuse Patient Records regulations: The Federal rules restrict any use of the information to criminally investigate or prosecute any alcohol or drug abuse patient.[facility] the event this information is protected by the Federal Confidentiality of Alcohol and Drug Abuse Patient Records regulations: The Federal rules restrict any use of the information to criminally investigate or prosecute any alcohol or drug abuse patient.[facility] the event this information is protected by the Federal Confidentiality of Alcohol and Drug Abuse Patient Records regulations: The Federal rules restrict any use of the information to criminally investigate or prosecute any alcohol or drug abuse patient.[facility] the event this information is protected by the Federal Confidentiality of Alcohol and Drug Abuse Patient Records regulations: The Federal rules restrict any use of the information to criminally investigate or prosecute any alcohol or drug abuse patient.[facility] Hospital[facility] the event this information is protected by the Federal Confidentiality of Alcohol and Drug Abuse Patient Records regulations: The Federal rules restrict any use of the information to criminally investigate or prosecute any alcohol or drug abuse patient.[facility] Teams (unrecognized sec tion and content) Picture Engraver Relationship Specialty Start Date End Date Kevin Brewer [address] [place] [address] PCP - General Family Practice 03/22/21 Yin Grove MD [address] [place] [address] Referring Urology 03/22/21 Picture Engraver Relationship Specialty Start Date End Date Kevin Brewer [address] [place] [address] PCP - General Family Practice 03/22/21 Yin Grove MD [address] [place] [address] Referring Urology 03/22/21 Picture Engraver Relationship Specialty Start Date End Date Kevin Brewer [address] [place] [address] PCP - General Family Practice 03/22/21 Yin Grove MD [address] [place] [address] Referring Urology 03/22/21 Picture Engraver Relationship Specialty Start Date End Date Kevin Brewer [address] [place] [address] PCP - General Family Practice 03/22/21 Yin Grove MD [address] [place] [address] Referring Urology 03/22/21 Picture Engraver Relationship Specialty Start Date End Date Kevin Brewer [address] [place] [address] PCP - General Family Practice 03/22/21 Yin Grove MD [address] [place] [address] Referring Urology 03/22/21 Picture Engraver Relationship Specialty Start Date End Date Kevin Brewer [address] [place] [address] PCP - General Family Medicine 03/22/21 Yin Grove MD [address] [place] [address] Referring Urology 03/22/21 Picture Engraver Relationship Specialty Start Date End Date Kevin Brewer [address] [place] [address] PCP - General Family Medicine 03/22/21 Yin Gorve MD [address] [place] [address] Referring Urology 03/22/21 Picture Engraver Relationship Specialty Start Date End Date Kevin Brewer [address] [place] [address] PCP - General Family Medicine 03/22/21 Yin Grove MD [address] [place] [address] Referring Urology 03/22/21 Picture Engraver Relationship Specialty Start Date End Date Kevin Brewer [address] [place] [address] PCP - General Family Medicine 03/22/21 Yin Grove MD [address] [place] [address] Referring Urology 03/22/21 Picture Engraver Relationship Specialty Start Date End Date Kevin Brewer MD [address] [place] [address] PCP - General Family Medicine 02/05/23 Picture Engraver Relationship Specialty Start Date End Date Kevin Brewer [address] [place] [address] PCP - General Family Medicine 03/22/21 Yin Grove MD [address] [place] [address] Referring Urology 03/22/21 Reason for Visit (unrecogniz ed section and content) Specialty Diagnoses / Procedures Referred By Contac t Referred To Contact Radiation Oncology / RADIATION ONCOLOGY Diagnoses Malignant neoplasm of prostate Seed Implant at [employer] Procedures SEED IMPLANT Demond High MD [address] [place] [address] [place] [address] Demond High MD [address] [place] [address] [place] [address] Referral ID Status Reason Start Date Expiration Date V isits Requested Visits Authorized [id number] Authorized 06/27/2021 03/01/2022 99 99 Reason Comments FYI-No Action Needed Covid19 Concern Reason Comments Prostate Cancer Reason Comments Future Appointment Reason Comments Annual Exam Specialty Diagnoses / Procedures Referred By Contac t Referred To Contact Diagnoses Paroxysmal SVT (supraventricular tachycardia) Procedures ECG 12 Lead Parveen Multani MD [address] [facility] [address] [place] [address] Referral ID Status Reason Start Date Expiration Date V isits Requested Visits Authorized [id number] Pending Review 02/10/2023 02/10/2024 1 1 FOR [...] BE BASED ON THE PRIMARY CLINICAL RECORDS. [facility] [employer] [facility] provides no warranty or guarantee of the accuracy or completeness of information in this document.
== END 2023-11-11 12:21 | disposition home or self-care (01) ==
LOC: PST 12:21
PROVIDERS: PCP Family Medicine; Visit Provider Surgery
DX: Z01.818 Encounter for other preprocedural examination (principal)

== ENCOUNTER 2023-11-17 07:07 | Day surgery (SDC) | payer MEDICARE, SELFPAY ==
[2023-11-17 07:00] VITALS: BP 152/84; PULSE 90; TEMP 36.1; O2SAT 95; BMI 39.9
--- OUTSIDE RECORDS SUMMARY | 2023-11-17 07:11 | XMS_ITS | CCD ---
Author Organization [facility] CliniSypr Care Team Providers Care Order Control Clerk Blood Bank Name Role Phone Kevin Brewer Unavailable Unavailable Unavailable Unavailable Unavailable Kevin Brewer Primary Care Provider Yin Grove MD R Unavailable KEVIN BREWER Primary Care Physician [phone] Unavailable Unavailable Rodriguezuinbrad II, Parveen Wilder Referring [...] (1 source) tamsulosin Drug Allergy 05-31-2021 [facility] Repository Medications Current Medications Medication [...] Start: 01-14-2022 take 1 capsule by mo [facility] once daily in the morning dilTIAZem [...] Start: 09-28-2019 take 1 capsule by mo [facility] once daily in the morning dilTIAZem [...] Start: 06-10-2022 take 1 capsule by mo [facility] once daily tamsulosin (Flomax) 0.4 mg [...] Active Start: 03-07-2021 take 2 tablets by [facility] at bedtime as needed for pain acetaminophen [...] Comment on above: Take 1 capsule by [facility] twice daily. naproxen sodium 220 mg oral [...] 02-06-2023 Episodic Other aftercare (1 source) Other jail (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; Translations: [OTH INTERMEDIATE CURRENT DRUG THERAPY] Onset: 07-09-2022 Episodic Other [...] DELGADO, Yin Patel Where: [facility] Patient Educationon 05-11-19 24 [...] Where to find more information ? The [employer]: www.cancer.org ? [employer]: www.auanet.org Contact a health care [...] adds flu (more content not included)... Normal [facility] Urology Office/Clinic Noteon 05-11-2023 Urology Office/Clinic Note [...] [facility] [address] [place] [address] [phone] Additional Instructions: PSA in 6 mos and [...] Prostate ca (more content not included)... Normal [facility] Comment on above: Result Comment: Elec tronically Signed By: Yin GROVE MD\.br\Date and Time Signed: 05/11/23 10:34 EDT\.br\Electronically Co-Signed By: Kimberly Nash\.br\Date and Time Co-Signed: 05/11/23 10:32 EDT CNOVon 04-07-2023 CNOV Office Visit (RADTSA ) -------- LUIS LUIS ([id number]) 1950 Date Time Provider Department 04/07/23 1:15 [...] cc: Kevin Brewer MD ([facility]) [address] [place] [address] Portions of the above note extracted and edited from previous visit as well as active information included in the EMR. Kelly Guo LPN 04/15/2023 3:32 PM Signed AUA=12 Referring Provider: Demond HIGH [[id number]] Allergies As of Date: 04/07/2023 (No Known Allergies) Date Reviewed: 04/07/2023 Reviewed by: Kelly Guo LPN - Fully Assessed Reason for Visit: Prostate Cancer [590] Primary Visit Diagnosis:Malignant neoplasm of prostate (HCC) [C61] Order(s):PSA (OUTSIDE) [6510138] Order #: [id number] PSA/PROSTSPECAG DIAG [SQPSA] Order #: [id number] FUTURE Prescriptions as of 04/15/2023 - naproxen [...] for Encounter Date Provider Department Center 04/07/2023 [id number] HIGHY Encounter Status:Closed by Demond HIGH on 04/15/23 Normal [facility] Lab Reportson 04-01-2023 Lab Reports [id number] F Normal [facility] ECG 12 Leadon 02-10-2023 Normal sinus rhythm Right bundle branch block left anterior fascicular block Bifascicular block Cannot exclude age-indeterminate inferior infarct QTc 443 ms [facility] Work Phone: CNOVon 09-30-2022 CNOV Office Visit (RADTSA ) -------- LUIS ULIS ([id number]) 1950 M Date Time Provider Department 09/30/22 [...] ASSESSMENT/PLAN: Prostate adenocarcinoma, initial PSA 4.3, biopsy [place] score 3 + 4 = 7 (grade group 2), clinical stage T2a, N0, M0, stage IIB [T1-T2, N0, M0, PSA <20, GG 2] (AJCC 8th ed.), s/p TRUS Random and MRI fusion biopsy. PSA remains undetectable. No postradiation related issues. Plan see patient back in 6 months for further postradiation follow-up. Signed by: Demond High MD cc: Kevin Brewer MD ([facility]) [address] [place] [address] Portions of the above note extracted and edited from previous visit as well as active information included in the EMR. Referring Provider: Demond HIGH [[id number]] Allergies As of Date: 09/30/2022 (No Known Allergies) Date Reviewed: 09/30/2022 Reviewed by: Naida Jacoob RN - Fully Assessed Reason for Visit: Prostate Cancer [590] Primary Visit Diagnosis:Malignant neoplasm of prostate (HCC) [C61] Order(s):PSA (OUTSIDE) [[id number]] Order #: [id number] PSA/PROSTSPECAG DIAG [SQPSA] Order #: [id number] FUTURE Prescriptions as of 10/03/2022 - naproxen [...] for Encounter Date Provider Department Center 09/30/2022 [id number] HIGH [facility] Encounter Status:Closed by Demond HIGH on 10/03/22 Normal [facility] Lab Reportson 09-09-2022 Lab Reports [id number]: 127 Normal [facility] Ambulatory Visit Summaryon 0 09-08-2022 Ambulatory Visit Summary LUIS LUIS Kristan :1950 Visit Date:09/08/2022 Ambulatory Visit Instructions Your Diagnosis Prostate cancer BPH with urinary obstruction Family history of prostate cancer Tests Performed Urnls Dip Stick Auto w/o Microscopy POC [id number] Your Care Team Attending Physician - CARINE [...] DELGADO, Yin Patel Where: [facility] Patient Educationon 09-09-19 23 Patient Education Urology [...] Follow these instructions at home: ? Take gmzc-oqu-khvzcuq and prescription medicines only as told by [...] the medicine (more content not included)... Normal [facility] Office/Clinic Noteon 09-08-2022 Urology Office/Clinic Note [...] [facility] [address], [place] [address] [phone] Additional Instructions: PSA Patient Education Benign Prostatic [...] lifetime) To (more content not included)... Normal [facility] Comment on above: Result Comment: Elec tronically Signed By: Yin GROVE MD\.br\Date and Time Signed: 09/08/22 12:22 EDT\.br\Electronically Co-Signed By: Kimberly Nash\.br\Date and Time Co-Signed: 09/08/22 12:20 EDT CBC AUTO DIFFon 05-03-2023 BASO # 0.1 103/ul Normal 0.0-0.1 [facility] Comment on above: Performed By: #### C BC #### [facility] [address] [place] [address] Dr. Shama Naylor Basophils/100 WBC (Bld) 0.8 % Normal 0.2-2.0 [facility] Comment on above: Performed By: #### C BC #### [facility] [address] [place] [address] Dr. Shama Naylor EO # 0.1 103/ul Normal 0.0-0.7 [facility] Comment on above: Performed By: #### C BC #### [facility] [address] [place] [address] Dr. Shama Naylor Eosinophils/100 WBC (Bld) 2.0 % Normal 0.9-7.0 [facility] Comment on above: Performed By: #### C BC #### [facility] [address] [place] [address] Dr. Shama Naylor Erythrocyte distribution width (RBC) [Ratio] 13.6 % Normal 11.0-15.0 [facility] Comment on above: Performed By: #### C BC #### [facility] [address] [place] [address] Dr. Shama Naylor Hematocrit (Bld) [Volume fraction] 40.0 % Critically low 42.0-54.0 [facility] Comment on above: Performed By: #### C BC #### [facility] [address] [place] [address] Dr. Shama Naylor Hemoglobin (Bld) [Mass/Vol] 13.6 g/dL Critically low 14.0-18.0 [facility] Comment on above: Performed By: #### C BC #### [facility] [address] [place] [address] Dr. Shama Naylor IG # 0.02 10e3/ul Normal 0.00-0.03 [facility] Comment on above: Performed By: #### C BC #### [facility] [address] [place] [address] Dr. Shama Naylor IG % 0.3 % Normal 0.0-0.5 [facility] Comment on above: Performed By: #### C BC #### [facility] [address] [place] [address] Dr. Shama Naylor LYMPH # 1.6 103/ul Normal 1.2-3.8 [facility] Comment on above: Performed By: #### C BC #### [facility] [address] [place] [address] Dr. Shama Naylor Lymphocytes/100 WBC (Bld) 26.0 % Normal 20.5-60.0 [facility] Comment on above: Performed By: #### C BC #### [facility] [address] [place] [address] Dr. Shama Nyalor MANUAL DIFF REQ NO Normal [facility] Comment on above: Performed By: #### C BC #### [facility] [address] [place] [address] Dr. Shama Naylor MCH (RBC) [Entitic mass] 30.8 pg Normal 25.9-34.0 [facility] Comment on above: Performed By: #### C BC #### [facility] [address] [place] [address] Dr. Shama Naylor MCHC (RBC) [Mass/Vol] 34.0 g/dL Normal 29.9-35.2 [facility] Comment on above: Performed By: #### C BC #### [facility] [address] [place] [address] Dr. Shama Naylor MCV (RBC) [Entitic vol] 90.7 fL Normal 80.0-94.0 [facility] Comment on above: Performed By: #### C BC #### [facility] [address] [place] [address] Dr. Shama Naylor MONO # 0.4 103/ul Normal 0.3-0.8 [facility] Comment on above: Performed By: #### C BC #### [facility] [address] [place] [address] Dr. Shama Naylor Monocytes/100 WBC (Bld) 6.1 % Normal 1.7-12.0 [facility] Comment on above: Performed By: #### C BC #### [facility] [address] [place] [address] Dr. Shama Naylor NEUT # 3.9 103/ul Normal 1.4-6.5 [facility] Comment on above: Performed By: #### C BC #### [facility] [address] [place] [address] Dr. Shama Naylor Neutrophils/100 WBC (Bld) 64.8 % Normal 43.0-75.0 [facility] Comment on above: Performed By: #### C BC #### [facility] [address] [place] [address] Dr. Shama Naylor Platelet mean volume (Bld) [Entitic vol] 10.3 fL Normal 9.5-13.5 [facility] Comment on above: Performed By: #### C BC #### [facility] [address] [place] [address] Dr. Shama Naylor PLT 165 103/ul Normal 150-450 [facility] Comment on above: Performed By: #### C BC #### [facility] [address] [place] [address] Dr. Shama Naylor RBC 4.41 106/ul Critically low 4.70-6.10 [facility] Comment on above: Performed By: #### C BC #### [facility] [address] [place] [address] Dr. Shama Naylor WBC 6.0 103/ul Normal 4.0-11.0 [facility] Comment on above: Performed By: #### C BC #### [facility] [address] [place] [address] Dr. Shama Naylor LIPID PROFILEon 07-02-2022 CHOL-HDL RATIO NORM SEE BELOW Normal [facility] Comment on above: Result Comment: 3.3 - 4.4 LOW RISK 4.4 - 7.1 AVERAGE RISK 7.1 - 11.0 MODERATE RISK >11.0 HIGH RISK Performed By: #### L IPID, BMP, LIVER #### [facility] [address] [address] [address] Shama Naylor Cholesterol [Mass/Vol] 157 mg/dL Normal <=200 [facility] Comment on above: Performed By: #### L IPID, BMP, LIVER #### [facility] [address] [address] [address] Shama Naylor Cholesterol in HDL [Mass/Vol] 58 mg/dL Normal 40-60 [facility] Comment on above: Performed By: #### L IPID, BMP, LIVER #### [facility] [address] [address] [address] Shama Naylor Cholesterol in LDL [Mass/Vol] 81.8 mg/dL Normal [facility] Comment on above: Performed By: #### L IPID, BMP, LIVER #### [facility] [address] [address] [address] Shama Naylor Cholesterol.total /Cholesterol in HDL [Mass ratio] 2.7 {ratio} Normal [facility] Comment on above: Performed By: #### L IPID, BMP, LIVER #### [facility] [address] [address] [address] Shama Naylor HDL NORMAL > or = 60 mg/dl - LO W CARDIOVASCULAR RISK <40 mg/dl - HIGH CARDIOVASCULAR RISK Normal [facility] Comment on above: Performed By: #### L IPID, BMP, LIVER #### [facility] [address] [address] [address] Shama Naylor LDL CALC NORMAL SEE BELOW Normal [facility] Comment on above: Result Comment: <100 mg/dl OPTIMAL 100 - 129 mg/dl NEAR OR ABOVE OPTIMAL 130 - 159 mg/dl BORDERLINE HIGH 160 - 189 mg/dl HIGH >190 mg/dl VERY HIGH Performed By: #### L IPID, BMP, LIVER #### [facility] [address] [address] [address] Shama Naylor Triglyceride [Mass/Vol] 86 mg/dL Normal <=150 [facility] Comment on above: Performed By: #### L IPID, BMP, LIVER #### [facility] [address] [address] [address] Shama Naylor VLDL CALC 17.2 mg/dL Normal [facility] Comment on above: Performed By: #### L IPID, BMP, LIVER #### [facility] [address] [place] [address] Dr. Shama Naylor LIVER PROFILEon 07-02-2022 Albumin [Mass/Vol] 3.3 g/dL Critically low 3.4-5.0 [facility] Comment on above: Performed By: #### L IPID, BMP, LIVER #### [facility] [address] [place] [address] Dr. Shama Naylor Albumin/Globulin [Mass ratio] 1.0 {ratio} Normal [facility] Comment on above: Performed By: #### L IPID, BMP, LIVER #### [facility] [address] [place] [address] Dr. Shama Naylor ALP [Catalytic activity/Vol] 61 U/L Normal 46-116 [facility] Comment on above: Performed By: #### L IPID, BMP, LIVER #### [facility] [address] [place] [address] Dr. Shama Naylor ALT [Catalytic activity/Vol] 38 U/L Normal 16-63 [facility] Comment on above: Performed By: #### L IPID, BMP, LIVER #### [facility] [address] [place] [address] Dr. Shama Naylor AST [Catalytic activity/Vol] 14 U/L Critically low 15-37 [facility] Comment on above: Performed By: #### L IPID, BMP, LIVER #### [facility] [address] [place] [address] Dr. Shama Naylor BILI, CONJUGATED 0.1 mg/dL Normal 0.0-0.2 [facility] Comment on above: Performed By: #### L IPID, BMP, LIVER #### [facility] [address] [place] [address] Dr. Shama Naylor Bilirubin [Mass/Vol] 0.4 mg/dL Normal 0.2-1.0 [facility] Comment on above: Performed By: #### L IPID, BMP, LIVER #### [facility] [address] [place] [address] Dr. Shama Naylor Globulin (S) [Mass/Vol] 3.3 g/dL Normal [facility] Comment on above: Performed By: #### L IPID, BMP, LIVER #### [facility] [address] [place] [address] Dr. Shama Naylor Protein [Mass/Vol] 6.6 g/dL Normal 6.4-8.2 [facility] Comment on above: Performed By: #### L IPID, BMP, LIVER #### [facility] [address] [place] [address] Dr. Shama Naylor PROF CHEM 8 (BAS METB)on Anion gap [Moles/Vol] 9.6 mmol/L Normal [facility] Comment on above: Performed By: #### L IPID, BMP, LIVER #### [facility] [address] [place] [address] Dr. Shama Naylor Calcium [Mass/Vol] 8.8 mg/dL Normal 8.5-10.1 [facility] Comment on above: Performed By: #### L IPID, BMP, LIVER #### [facility] [address] [place] [address] Dr. Shama Naylor Chloride [Moles/Vol] 107 mmol/L Normal 98-107 [facility] Comment on above: Performed By: #### L IPID, BMP, LIVER #### [facility] [address] [place] [address] Dr. Shama Naylor CO2 [Moles/Vol] 28.3 mmol/L Normal 21.0-32.0 [facility] Comment on above: Performed By: #### L IPID, BMP, LIVER #### [facility] [address] [place] [address] Dr. Shama Naylor Creatinine [Mass/Vol] 1.03 mg/dL Normal 0.70-1.30 [facility] Comment on above: Performed By: #### L IPID, BMP, LIVER #### [facility] [address] [place] [address] Dr. Shama Naylor EGFR-AF EGYPTIAN >60 Normal >=60 [facility] Comment on above: Performed By: #### L IPID, BMP, LIVER #### [facility] [address] [place] [address] Dr. Shama Naylor EGFR-NON AF EGYPTIAN >60 Normal >=60 [facility] Comment on above: Performed By: #### L IPID, BMP, LIVER #### [facility] [address] [place] [address] Dr. Shama Naylor Glucose [Mass/Vol] 103 mg/dL Normal 74-106 [facility] Comment on above: Performed By: #### L IPID, BMP, LIVER #### [facility] [address] [place] [address] Dr. Shama Naylor Potassium [Moles/Vol] 3.9 mmol/L Normal 3.5-5.1 [facility] Comment on above: Performed By: #### L IPID, BMP, LIVER #### [facility] [address] [place] [address] Dr. Shama Naylor Sodium [Moles/Vol] 141 mmol/L Normal 136-145 [facility] Comment on above: Performed By: #### L IPID BMP, LIVER #### [facility] [address] [place] [address] Dr. Shama Naylor Urea nitrogen [Mass/Vol] 14.0 mg/dL Normal 7.0-18.0 [facility] Comment on above: Performed By: #### L IPID, BMP, LIVER #### [facility] [address] [place] [address] Dr. Shama Naylor Urea nitrogen/Creatini ne [Mass ratio] 13.6 mg/mg Normal [facility] Comment on above: Performed By: #### L IPID, BMP, LIVER #### [facility] [address] [place] [address] Dr. Shmaa Naylor Office Visit (Cardiology)on 02-11-2022 Follow-up visit Diagnoses/Problems Assessed Paroxysmal SVT (supraventricular tachycardia) (427.0) (I47.1) Hypertension (401.9) (I10) HLD (hyperlipidemia) (272.4) (E78.5) Morbid obesity with BMI of 40.0-44.9, adult (278.01,V85.41) (E66.01,Z68.41) Former smoker (V15.82) (Z87.891) Quit in 1970s Orders Morbid obesity with BMI of 40.0-44.9, adult Healthy Weight Tips; Status:Complete; Done: 35Noe1846 Some eating tips that can help you lose weight.; Status:Complete; Done: 67Ell4326 Paroxysmal SVT (supraventricular tachycardia) IO EKG Electrocardiogram- 12 Lead; Status:Complete; Done: 26Wic6230 SocHx: Former smoker Tobacco Use Screening; Status:Complete; Done: 59Ubx0264 Patient Instructions Please bring all medicines, vitamins, [...] negative for complaint. Vitals Vital Signs Recorded: 63Bsy3109 11:05AM Heart Rate73, Apical Tydsaoef498, LUE, Sitting Kjmthaqns43, LUE, Sitting Height6 ft 2 in Baumtw867 lb BMI Wzdnqewwdy98.57 kg/m2 BSA Calculated2.64 Tobacco Useb) No PHQ-2 [...] Feb 11 2022 5:56PM EST (Author) Normal [employer] Tobacco Screening.on 022 Adult depression screening assessment No [facility] 250 DO Work Phone: Fall risk assessment a) No falls within the last year [facility] 250 DO Work Phone: Tobacco use status [facility] b) No [facility] 250 DO Work Phone: Falls Risk Screeningon 08-12 Fall risk assessment a) No falls within the last year [facility] Mary Lou Bolden DO Work Phone: Office [...] Weight Tips; Status:Complete - Retrospective Authorization; Done: 45Lfe5570 SocHx: Former smoker Tobacco Use Screening; Status:Complete; Done: 23Lbs6919 Unlinked Stop: Aspirin 81 MG Oral Tablet [...] negative for complaint. Vitals Vital Signs Recorded: 45Moj8555 01:46PM Heart Rate72, R Radial Gampoann339, RUE, Sitting Bxdbehsow38, RUE, Sitting Height6 ft 2 in Hywqyu449 lb BMI Ceuagrexhu34.67 kg/m2 BSA Calculated2.61 Tobacco Useb) No Fall [...] a) No falls within the last year -[facility] [facility] 250 DO Work Phone: Tobacco use status [facility] b) No -[facility] 250 DO Work Phone: Blood Urea Nitrogenon 2020 Urea nitrogen [Mass/Vol] 14 mg/dL Normal 9-23 [facility] Comment on above: Order Comment: STAT FOR MRI Performed By: #### C REAT, BUN #### [place] [address] [place] Creatinineon 01-30-2021 Creatinine [Mass/Vol] 0.98 mg/dL Normal 0.64-1.27 [facility] Comment on above: Order Comment: STAT FOR MRI Performed By: #### C REAT, BUN #### [place] [address] [place] Creatinine Clr Calc Pharmacy 102.93 [facility] Comment on above: Order Comment: STAT FOR MRI Result Comment: PERF ORMED BY: [place] [address] PATHOLOGIST CUSTOMER TRAINER NILDA PAUL M.D. Performed By: #### C REAT, BUN #### [address] Estimated GFR ( Zulma > 60 [facility] Comment on above: Order Comment: STAT FOR MRI Result Comment: GFR estimated reference range: According to KDOQI guidelines, <60 ml/min/1.73m2 is sufficient to diagnose a patient with chronic kidney disease. Performed By: #### C REAT, BUN #### [facility] [address] [place] [address] [place] Estimated GFR (Non- Am > 60 Normal [facility] Comment on above: Order Comment: STAT FOR MRI Performed By: #### C NICHO WINN #### [facility] [address] [id number] [facility] MR prostate wo/w conon 01-30 MR prostate wo/w con [facility] Main [place] [address] [id number] MRI Report Signed Patient: Luis Luis MR#: [id number] 2028 : 1950 Acct:[id number] Age/Sex: 70 / M ADM Date: 01/30/21 Loc: MR Room: Type: [facility] Attending Dr: Yin Grove MD Ordering [...] PM COT by: Zachery Verma MD Diplomate, [employer] Report Completed: Jan 30, [...] STAFF 01/30/21 1352 Signed By: 01/30/21 1358 [facility] CARDIAC STRESS/REST INJE CTIONon 11-29-2019 [facility] CARDIAC STRESS/REST INJECTION Patient Name: LUIS LUIS STUDY: MYOCARDIAL PERFUSION STRESS TEST WITH LEXISCAN Performing facility: [facility], [address] [place] [address], [address], [place] [address] [facility] Provider: Mary Tam RN, [employer] PCP: Dr. Julianna Brewer Supervising provider: Sunday Rai DO, [facility] INDICATION: Chest Pain; HISTORY: Gender: M; Age: 69 y/o ; Height: 187.96 cm; Weight: 784.7656132 kg. High Cholesterol; HTN; Palpitations; Chest Pain; SOB; Quit smoking 40 years ago. COMPARISON: No comparison. ACCESSION NUMBER(S): [id number]; [id number]; [id number] ORDERING CLINICIAN: MARY TAM TECHNIQUE: TWO DAY [...] Electronically signed by: JAMIL JARRELL MD Normal [facility] Vital Signs Date Time Vital Sign Value Performing Clinician Facility 04-07-2023 13:06-0500 Body temperature 97.9 [degF] SARAVANAN High MD Work Phone: [facility] 04-07-2023 13:06-0500 Body weight 149.2 kg SARAVANAN High MD Work Phone: [facility] 04-07-2023 13:06-0500 Diastolic blood pressure 83 mm[Hg] SARAVANAN High MD Work Phone: [facility] 04-07-2023 13:06-0500 Heart rate 80 /min SARAVANAN High MD Work Phone: [facility] 04-07-2023 13:06-0500 Respiratory rate 16 /min SARAVANAN High MD Work Phone: [facility] 04-07-2023 13:06-0500 SaO2% (BldA) [Mass fraction] 96 % SARAVANAN High MD Work Phone: [facility] 04-07-2023 13:06-0500 Systolic blood pressure 139 mm[Hg] SARAVANAN High MD Work Phone: [facility] 02-10-2023 11:10-0500 Body height 188 cm Parveen Multani MD Work Phone: [facility] 02-10-2023 11:10-0500 Body mass index (BMI) [Ratio] 41.6 kg/m2 Parveen Multani MD Work Phone: [facility] 02-10-2023 11:10-0500 Body weight 146.97 kg Parveen Multani MD Work Phone: [facility] 02-10-2023 11:10-0500 Diastolic blood pressure 84 mm[Hg] Parveen Multani MD Work Phone: [facility] 02-10-2023 11:10-0500 Heart rate 67 /min Parveen Multani MD Work Phone: [facility] 02-10-2023 11:10-0500 Systolic blood pressure 132 mm[Hg] Parveen Multani MD Work Phone: [facility] 09-30-2022 13:55-0400 Body temperature 96.69 [degF] SARAVANAN High MD Work Phone: [facility] 09-30-2022 13:55-0400 Body weight 144.97 kg SARAVANAN High MD Work Phone: [facility] 09-30-2022 13:55-0400 Diastolic blood pressure 85 mm[Hg] SARAVANAN High MD Work Phone: [facility] 09-30-2022 13:55-0400 Heart rate 92 /min SARAVANAN High MD Work Phone: [facility] 09-30-2022 13:55-0400 Respiratory rate 18 /min SARAVANAN High MD Work Phone: [facility] 09-30-2022 13:55-0400 SaO2% (BldA) [Mass fraction] 94 % SARAVANAN High MD Work Phone: [facility] 09-30-2022 13:55-0400 Systolic blood pressure 143 mm[Hg] SARAVANAN High MD Work Phone: [facility] 09-08-2022 10:50-0400 Blood Pressure Location Yin GROVE [facility] 09-08-2022 10:50-0400 Diastolic blood pressure 73 mm[Hg] Yin GROVE [facility] 09-08-2022 10:50-0400 Heart rate 72 /min Yin GROVE [facility] 09-08-2022 10:50-0400 Respiratory rate 16 /min Yin GROVE [facility] 09-08-2022 10:50-0400 Systolic blood pressure 132 mm[Hg] Yin GROVE [facility] 04-01-2022 14:41-0500 Body temperature 97.2 [degF] SARAVANAN High MD Work Phone: [facility] 04-01-2022 14:41-0500 Body weight 142.79 kg SARAVANAN High MD Work Phone: [facility] 04-01-2022 14:41-0500 Diastolic blood pressure 90 mm[Hg] SARAVANAN High MD Work Phone: [facility] 04-01-2022 14:41-0500 Heart rate 82 /min SARAVANAN High MD Work Phone: [facility] 04-01-2022 14:41-0500 Respiratory rate 18 /min SARAVANAN High MD Work Phone: [facility] 04-01-2022 14:41-0500 SaO2% (BldA) [Mass fraction] 98 % SARAVANAN High MD Work Phone: [facility] 04-01-2022 14:41-0500 Systolic blood pressure 159 mm[Hg] SARAVANAN High MD Work Phone: [facility] 03-21-2022 11:25-0500 Blood Pressure Location Yin [facility] 03-21-2022 11:25-0500 Diastolic blood pressure 80 mm[Hg] Yin GROVE [facility] 03-21-2022 11:25-0500 Heart rate 76 /min Yin GROVE [facility] 03-21-2022 11:25-0500 Respiratory rate 16 /min Yin GROVE [facility] 03-21-2022 11:25-0500 Systolic blood pressure 138 mm[Hg] Yin GROVE [facility] 02-11-2022 11:05-0500 Body height 187.96 cm Kevin Brewer Work Phone: [facility] 250 DO Work Phone: 02-11-2022 11:05-0500 Body mass index (BMI) [Ratio] 40.57 kg/m2 Kevin Scott Naderer Work Phone: [facility] 250 DO Work Phone: 02-11-2022 11:05-0500 Body surface area Derived from formula 2.64 m2 Kevin Scott Naderer Work Phone: [facility] 250 DO Work Phone: 02-11-2022 11:05-0500 Body weight 143.34 kg Kevin Scott Naderer Work Phone: [facility] 250 DO Work Phone: 02-11-2022 11:05-0500 Diastolic blood pressure 78 mm[Hg] Kevin Scott Naderer Work Phone: [facility] 250 DO Work Phone: 02-11-2022 11:05-0500 Heart rate 73 /min Kevin Scott Naderer Work Phone: [facility] 250 DO Work Phone: 02-11-2022 11:05-0500 Systolic blood pressure 132 mm[Hg] Kevin Scott Naderer Work Phone: [facility] 250 DO Work Phone: 09-30-2021 10:54-0400 Blood Pressure Location Yin [facility] 09-30-2021 10:54-0400 Diastolic blood pressure 84 mm[Hg] Yin GROVE [facility] 09-30-2021 10:54-0400 Heart rate 75 /min [facility]in [facility] 09-30-2021 10:54-0400 Respiratory rate 16 /min Yin [facility] 09-30-2021 10:54-0400 Systolic blood pressure 136 mm[Hg] Yin GROVE [facility] 08-14-2021 09:47-0400 Body temperature 96.69 [degF] SARAVANAN High MD Work Phone: [facility] 08-14-2021 09:47-0400 Body weight 141.98 kg SARAVANAN High MD Work Phone: [facility] 08-14-2021 09:47-0400 Diastolic blood pressure 82 mm[Hg] SARAVANAN High MD Work Phone: [facility] 08-14-2021 09:47-0400 Heart rate 82 /min SARAVANAN High MD Work Phone: [facility] 08-14-2021 09:47-0400 Respiratory rate 20 /min SARAVANAN High MD Work Phone: [facility] 08-14-2021 09:47-0400 SaO2% (BldA) [Mass fraction] 94 % SARAVANAN High MD Work Phone: [facility] 08-14-2021 09:47-0400 Systolic blood pressure 131 mm[Hg] SARAVANAN High MD Work Phone: [facility] 08-12-2021 10:15-0400 Body height 187.96 cm Kevin Brewer Work Phone: [facility] 250 DO Work Phone: 08-12-2021 10:15-0400 Body mass index (BMI) [Ratio] 39.93 kg/m2 Kevin A Naderer Work Phone: [facility] 250 DO Work Phone: 08-12-2021 10:15-0400 Body surface area Derived from formula 2.62 m2 Kevin Scott Naderer Work Phone: [facility] 250 DO Work Phone: 08-12-2021 10:15-0400 Body weight 141.07 kg Kevin Scott Naderer Work Phone: [facility] 250 DO Work Phone: 08-12-2021 10:15-0400 Diastolic blood pressure 80 mm[Hg] Kevin Scott Naderer Work Phone: [facility] 250 DO Work Phone: 08-12-2021 10:15-0400 Heart rate 69 /min Kevin Lovelaceerer Work Phone: [facility] 250 DO Work Phone: 08-12-2021 10:15-0400 Systolic blood pressure 130 mm[Hg] Kevin Lovelaceerer Work Phone: [facility] 250 DO Work Phone: 08-09-2021 09:42-0400 Blood Pressure Location Yin [facility] 08-09-2021 09:42-0400 Diastolic blood pressure 80 mm[Hg] Yin GROVE [facility] 08-09-2021 09:42-0400 Heart rate 75 /min Yin GROVE [facility] 08-09-2021 09:42-0400 Respiratory rate 16 /min Yin [facility] 08-09-2021 09:42-0400 Systolic blood pressure 134 mm[Hg] Yin GROVE [facility] 02-15-2021 13:46-0500 Body height 187.96 cm Kevin Scott Naderer Work Phone: [facility] 250 DO Work Phone: 02-15-2021 13:46-0500 Body mass index (BMI) [Ratio] 39.67 kg/m2 Kevin Scott Naderer Work Phone: [facility] 250 DO Work Phone: 02-15-2021 13:46-0500 Body surface area Derived from formula 2.61 m2 Kevin Scott Naderer Work Phone: [facility] 250 DO Work Phone: 02-15-2021 13:46-0500 Body weight 140.16 kg Kevin Sonia Naderer Work Phone: [facility] 250 DO Work Phone: 02-15-2021 13:46-0500 Diastolic blood pressure 80 mm[Hg] Kevin Scott Naderer Work Phone: [facility] 250 DO Work Phone: 02-15-2021 13:46-0500 Heart rate 72 /min Kevin Scott Naderer Work Phone: [facility] 250 DO Work Phone: 02-15-2021 13:46-0500 Systolic blood pressure 118 mm[Hg] Kevin Scott Naderer Work Phone: [facility] 250 DO Work Phone: Encounters Encounter Date Encounter Type Care Provider Facility Start: 05-13-2024 ambulatory Yin R CARINE Facili ty:[facility] Start: 10-28-2023 End: 10-28-2023 ambulatory FRANCHESCA JN Not Available Start: 07-13-2023 End: 07-13-2023 ambulatory FRANCHESCA [place] Not Available Start: 06-29-2023 End: 06-29-2023 ambulatory KEVIN BREWER Not Available Start: 05-11-2023 End: 05-12-2023 ambulatory Yin R CARINE Facility:[facility] Start: 05-11-2023 End: 05-11-2023 Patient encounter procedure Yin Patel CARINE [facility] Start: 04-07-2023 End: 04-07-2023 ambulatory Demond HIGH Facility:[facility] Start: 04-07-2023 End: 04-07-2023 Patient encounter procedure Demond High MD Work Phone: Radiation Oncology Comment on above: Malignant neoplasm o f prostate (HCC) (Primary Dx) Start: 02-10-2023 End: 02-10-2023 ambulatory PARVEEN MULTANI [facility] Start: 02-10-2023 End: 02-10-2023 Office outpatient visit 25 minutes Parveen Multani MD Work Phone: [facility] Comment on above: Paroxysmal SVT (supr aventricular tachycardia) (Primary Dx); Primary hypertension; Mixed hyperlipidemia; Morbid obesity with BMI of 40.0-44.9, adult (CMS/HCC); Bifascicular block Start: 09-30-2022 End: 09-30-2022 ambulatory KEVIN Sonia DANIELLA Facility:[facility] Start: 09-30-2022 End: 09-30-2022 Patient encounter procedure Demond High MD Work Phone: Radiation Oncology Comment on above: Malignant neoplasm o f prostate (HCC) (Primary Dx) Start: 09-08-2022 End: 09-09-2022 ambulatory Yin GROVE Facility:[facility] Start: 09-08-2022 End: 09-08-2022 Patient encounter procedure Yin GROVE [facility] Start: 07-25-2022 Rx Renewal Kevin Brewer Work Phone: [facility] 250 DO Work Phone: Start: 07-02-2022 End: 07-03-[address] KEVIN BREWER Facility: Start: 04-07-2022 Rx Renewal Kevin Brewer Work Phone: [facility] 250 DO Work Phone: Start: 04-01-2022 End: 04-01-2022 ambulatory Yancy Oneill APRN.[employer] Work Phone: Hematology/Oncology Comment on above: Prostate cancer (HCC ) Start: 04-01-2022 End: 04-01-2022 Patient encounter procedure Yancy Oneill APRN[employer] Work Phone: [facility] Comment on above: Malignant neoplasm o f prostate (HCC) (Primary Dx) Start: 03-21-2022 End: 03-21-2022 Patient encounter procedure Yin GROVE [facility] Start: 03-11-2022 End: 03-12-[address] KEVIN BREWER Facility:[facility] Start: 02-11-2022 ambulatory Parveen Multani II Facility: Start: 02-11-2022 Office outpatient vi sit 15 minutes Kevin Brewer Work Phone: [facility] 250 DO Work Phone: Start: 02-05-2022 Telephone encounter G Chavez High MD Work Phone: Radiation Oncology Comment on above: Future Appointment Start: 01-14-2022 [facility] Work Phone: Start: 09-30-2021 End: 09-30-2021 Patient encounter procedure Yin GROVE [facility] Start: 09-23-2021 End: 09-24-[address] KEVIN BREWER Facility: Start: 08-14-2021 End: 08-14-2021 Patient encounter procedure Demond High MD Work Phone: Radiation Oncology Comment on above: Malignant neoplasm o f prostate (HCC) (Primary Dx) Start: 08-12-2021 Patient encounter procedure Kevin Brewer Work Phone: [facility] [employer] DO Work Phone: Start: 08-12-2021 ambulatory Parveen abdalla [facility] [place] Facility: Start: 08-09-2021 End: 08-09-2021 Patient encounter procedure Yin GROVE [facility] Start: 08-05-2021 Telephone encounter G Chavez High MD Work Phone: Radiation Oncology Comment on above: FYI-No Action Needed ; Covid19 Concern Start: 07-25-2021 Patient encounter procedure Demond High MD Work Phone: [facility] Start: 07-25-2021 Radiation Oncology Note Demond High MD Work Phone: Radiation Oncology Comment on above: Simulation Note Start: 07-24-2021 [facility]ASSI[facility] Brewer [facility] Work Phone: Start: 07-16-2021 End: 05-18-[address] KEVIN BREWER Facility:[facility] Start: 07-04-2021 End: 07-04-2021 Patient encounter procedure Abdulaziz DAWSON [facility] Start: 06-27-2021 End: 06-28-2021 Patient encounter [...] 04-26-2021 Rx Renewal Kevin Brewer Work Phone: [facility] 250 DO Work Phone: Start: 02-15-2021 ambulatory Parveen Multani II Facility: Start: 02-15-2021 Office outpatient vi sit 15 minutes Kevin Brewer Work Phone: [facility] 250 DO Work Phone: Start: 01-22-2021 Rx Renewal Kevin Brewer Work Phone: [facility] 250 DO Work Phone: Procedures Date [...] above: Performed By: #### P SAD #### [facility] [address] [address] [address] Shama Naylor Start: 09-23-[address] KEVIN BROOKS Comment on above: Performed By: #### P SAD #### [facility] [address] [address] [address] Shama Naylor Start: 07-16-2021 End: 07-16-2021 PSA screening [facility] Provider Comment on above: Performed By: #### P SAD #### [facility] [address] [address] [address] Shama Naylor Start: 06-27-2021 Brachytherapy Yin [...] procedure 03/08/2024 9:00 AM EST Office Visit [facility] [address] [address] Parveen Multani MD 703 [facility] [address] [address] [facility] Start: 04-07-2023 End: 07-07-2023 Prostate specific Ag [Mass/volume] in Serum or Plasma PSA/PROSTSPECAG DIAG Lab Routine Malignant neoplasm of prostate (HCC) Expected: 04/07/2023, Expires: 07/07/[address] [facility] Work Phone: Comment on above: Expected: 04/07/2023 , Expires: 07/07/2023 Start: 04-02-2023 End: 06-02-2023 Prostate specific Ag [Mass/volume] in Serum or Plasma PSA/PROSTSPECAG DIAG Lab Routine Malignant neoplasm of prostate (HCC) Expected: 04/02/2023 (Approximate), Expires: 06/02/[address] [facility] Work Phone: Comment on above: Expected: 04/02/2023 (Approximate), Expires: 06/02/2023 Start: 03-02-2023 Advance Directive Discussion Advance Directive Discussion [facility] Start: 03-02-2023 [facility] Start: 02-10-2023 FUV, Provider: Parveen Multani, Status: Pen, Time: 11:00 AM FUV, Provider: Parveen Multani, Status: Pen, Time: 11:00 AM [facility] 250 DO Work Phone: Start: 10-31-2022 Covid-19 Vaccine () Covid-19 Vaccine () [facility] Start: 10-31-2022 Influenza vaccination C [facility] Start: 03-02-2022 ADVANCE DIRECTIVE DISCUSSION ADVANCE DIRECTIVE DISCUSSION [facility] Start: 03-02-2022 DEPRESSION [facility]MENT [facility] Start: 02-11-2022 FUV, Provider: Parveen Multani, Status: Pen, Time: 10:50 AM FUV, Provider: Praveen Multani, Status: Pen, Time: 10:50 AM [facility] 250 DO Work Phone: Start: 10-31-2021 Influenza vaccination C [facility] Start: 04-15-2021 COVID-19 VACCINE (4 - Booster for Pfizer series) COVID-19 VACCINE (4 - Booster for Pfizer series) [facility] Start: 03-02-2021 ADVANCE DIRECTIVE DISCUSSION ADVANCE DIRECTIVE DISCUSSION [facility] Start: 03-02-2021 DEPRESSION ASSESSMENT [facility] Start: 02-15-2021 FUV, Provider: Parveen Multani, Status: Pen, Time: 1:30 PM FUV, Provider: Parveen Multani, Status: Pen, Time: 1:[address] [facility] 250 DO Work Phone: Start: 02-07-2021 COVID-19 VACCINE (4 - Booster for Pfizer series) COVID-19 VACCINE (4 - Booster for Pfizer series) [facility] Start: 02-07-2021 COVID-19 VACCINE (4 - Pfizer series) COVID-19 VACCINE (4 - Pfizer series) [facility] Start: 07-02-2015 Abdominal aortic aneurysm screening Abdominal Aortic Aneurysm (AAA) Screening [facility] Start: 07-02-2015 Pneumococcal Vaccine : 65+ (1 of 1 - PCV) Pneumococcal Vaccine: 65+ (1 of 1 - PCV) [facility] Start: 07-02-2015 Pneumococcal Vaccine : 65+ Years (1 - PCV) Pneumococcal Vaccine: 65+ Years (1 - PCV) [facility] Start: 07-02-2015 PNEUMOCOCCAL: 65+ (1 - PCV) PNEUMOCOCCAL: 65+ (1 - PCV) [facility] Start: 07-02-2015 PNEUMOVAX AGE 65 AND OVER WITH 5YR LOOKBACK (#1) PNEUMOVAX AGE 65 AND OVER WITH 5YR LOOKBACK (#1) [facility] Start: 2010 RSV Vaccine (1 - 1-d ose 60+ series) RSV Vaccine (1 - 1-dose 60+ series) [facility] Start: 2000 SHINGRIX VACCINE (1 of 2) SHINGRIX VACCINE (1 of 2) [facility] Start: 2000 Zoster Vaccines (1 of 2) Zoste r Vaccines (1 of 2) [facility] Start: 07-02-1995 COLOGUARD (FIT-DNA) COLOGUARD (FIT-D NA) [facility] Start: 07-02-1995 Colonoscopy COLONOSCOPY [facility] Start: 07-02-1995 COLORECTAL CANCER SCREENING COLORECTAL CANCER SCREENING [facility] Start: 07-02-[address] COLONOGRAPHY [facility] Start: 07-02-1995 DIABETES SCREEN DIABETES SCREEN [facility] Start: 07-02-1995 Diabetes Screening Diabetes Screenin g [facility] Start: 07-02-1995 FECAL OCCULT BLOOD FECAL OCCULT BLOO D [facility] Start: 07-02-1995 Screening for malign ant neoplasm of colon [facility] Start: 07-02-1995 SIGMOIDOSCOPY SIGMOIDOSCOPY [facility] Start: 1985 Lipid panel Lipid Screening [facility] Start: 1985 LIPID SCREEN LIPID SCREEN [facility] Start: 1972 DTaP/Tdap/Td Vaccine s (1 - Tdap) DTaP/Tdap/Td Vaccines (1 - Tdap) [facility] Start: 1969 SHINGRIX VACCINE (1 of 2) SHINGRIX VACCINE (1 of 2) [facility] Start: 1969 Urine microalbumin profile [facility] Start: 1968 Diabetes mellitus screening Diabetes Screening [facility] Start: 1968 HEPATITIS C SCREENING HEPATITIS C [facility] Start: 1968 Hepatitis C screening Hepatitis C [facility] Start: 1962 Adult depression screening assessment DEPRESSION SCREENING [facility] Start: 1956 PNEUMOCOCCAL: 65+ (1 - PCV) PNEUMOCOCCAL: 65+ (1 - PCV) [facility] Start: 1950 ABDOMINAL AORTIC ANEURYSM SCREENING ABDOMINAL AORTIC ANEURYSM SCREENING [facility] Start: 1950 Abdominal aortic aneurysm screening Abdominal Aortic Aneurysm Screening [facility] Start: 1950 Lipid panel Lipid Panel [facility] Start: 1950 Medicare Annual Well ness Visit Medicare Annual Wellness Visit (AWV) [facility] Start: 1950 Screening for malign ant neoplasm of colon [facility] Immunizations Immunization Date Immunization Notes Care Provider Concha lopez 11-28-2021 Fluzone High-Dose Quadrivalent 0.7 ML Intramuscular Suspension Prefilled Syringe Kevin Brewer Work Phone: [facility] 250 DO Work Phone: 11-28-2021 influenza virus vaccine, unspecified formulation Yin GROVE [facility] 11-28-2021 influenza, high dose seasonal, preservative-free Parveen Multani MD Work Phone: [facility] Work Phone: 12-13-2020 Pfizer-BioNTech COVID-19 Vacc 30 MCG/0.3ML Intramuscular Suspension Kevin A Naderer Work Phone: [facility] 05-19-2020 Pfizer-BioNTech COVID-19 Vacc 30 MCG/0.3ML Intramuscular Suspension Kevin A Naderer Work Phone: [facility] 04-28-2020 Pfizer-BioNTech COVID-19 Vacc 30 MCG/0.3ML Intramuscular Suspension Kevin A Naderer Work Phone: [facility] 03-02-2020 SARS-CoV-2 (COVID-19 ) mRNA [id number] vax Abdulaziz DAWSON [facility] Comment on above: Result Comment: pt i s fully vaccinated and has received the booster but does not remember the dates 12-14-2019 influenza virus vaccine, unspecified formulation Yin GROVE [facility] 12-14-2019 influenza, injectabl e, quadrivalent, preservative free Kevin A Naderer Work Phone: [facility] 250 DO Work Phone: 12-01-2019 influenza virus vaccine, unspecified formulation Yin GROVE [facility] 12-01-2019 influenza, seasonal, injectable Kevin A Naderer Work Phone: [facility] 250 DO Work Phone: 02-09-2012 influenza virus vaccine, unspecified formulation Yin GROVE [facility] 02-09-2012 influenza, seasonal, injectable Kevin A Naderer Work Phone: -[facility] 250 DO Work Phone: Payers Date Payer Category Payer Private Health Insurance AETSARAVANAN Scott ETSARAVANAN MEDICARE SUPPLEMENT [id number] 2020-Present [phone] [address] [address] [place] [address] Indemnity [id number] 2020 Private Health Insurance [id number] 2015 Medicare MEDICARE MEDICAR E A AND B [id number] 2015-Present [phone] [address] [address] [place] [address] Medicare [id number] 2015 Medicare [id number] 1959 Medicare [id number] 1959 Private Health Insurance [id number] 1950 Unknown [id number]. 2.356 1950 Unknown [id number] [id number]. 2.356 1950 Unknown [id number]. 2.356 1950 Unknown [id number] [id number]. 2.593 1950 Unknown [id number] [id number]. 2.593 1950 Unknown [id number] [id number]. 2.593 1950 Unknown [id number] [id number]. 2.593 1950 Unknown [id number] [id number]. 2.1244 1950 Unknown [id number] [id number]. 2.727 1950 Unknown [id number] [id number]. 2.727 1950 Unknown [id number] [id number]. 2.727 1950 Unknown [id number] [id number]. 2.1259 1950 Unknown [id number] [id number]. 2.1259 1950 Unknown [id number]. 2.1259 Unknown Social History Date Type Detail Facility Start: 05-20-2021 End: 09-30-2022 Alcohol use Alcohol use [facility] Comment on above: 4 8 oz cups of coffe e/occasional decaf coffee; Quit in 1970s; Start: 04-03-2021 End: 04-07-2023 Tobacco smoking status NHIS Ex-smoker [facility] End: 04-03-1981 History of tobacco use Current smoker [facility] End: 04-03-1981 History of tobacco use Pipe Smoker [facility] End: 04-03-1981 History of tobacco use Cigar Smoker [facility] Start: 04-03-2021 End: 04-07-2023 Tobacco use and exposure Smokeless tobacco non-user [facility] Start: 05-20-2021 End: 04-07-2023 Alcohol intake Current drinker of alcohol (finding) [facility] Start: 04-03-2021 History SDOH Alcohol Comment 2-3 times/wk [facility] Start: 1950 Sex Assigned At Not on file C [facility] Start: 06-01-2021 End: 02-10-2023 Exposure to SARS-CoV-2 (event) Not sure [facility] Start: 05-20-2021 End: 09-30-2022 Sex Assigned At Male [facility] Breonna Tobacco smoking status No Smokin g Status Entered [facility] Start: 03-21-2022 Tobacco smoking status Never s moked tobacco (finding) [facility] Start: 05-11-2023 Tobacco smoking status Never [facility] End: 03-02-1969 History of tobacco use Cigarette Smoker [facility] Work Phone: Start: 02-06-2023 Alcohol Comment [facility] Work Phone: Functional Status Date Assessment Result Facility 05-11-2023 Functional Status N/A [facility] 09-08-2022 Functional Status N/A [facility] 03-21-2022 Functional Status N/A [facility] 09-30-2021 Functional Status N/A [facility] Clinical Notes 06-11-2021 to 05-11-2023 Kelly Guo [...] treatment? Where to find more information [employer]: www.cancer.org [employer]: www.auanet.org Contact a health care [...] provider. Document Revised: 08/12/2021 Document Reviewed: 08/12/2021 [email or web address] Patient Education 2022 [employer]. Follow Up Care 09/08/2022 12:26:22 With:CARINE DELGADO, Yin Patel, URL Address: [facility] [address], [place] [address] [phone] When: Unknown Comments:PSA in 6 mos and f/u in 1 yr w/ repeat PSA [facility] 04-07-2023 Note HNO ID: [id number] Author: Demond HIGH MD Service: ? Author Type: Physician Type: Progress Notes Filed: 04/15/2023 15:32 Note Text: Radiation Oncology - Follow Up Note PATIENT NAME: Luis Luis PATIENT DIAGNOSIS: Prostate adenocarcinoma, initial PSA 4.3, biopsy [place] score 3 + 4 = 7 (grade [...] ASSESSMENT/PLAN: Prostate adenocarcinoma, initial PSA 4.3, biopsy [place] score 3 + 4 = 7 (grade group 2), clinical stage T2a, N0, M0, stage IIB [T1-T2, N0, M0, PSA <20, GG 2] (AJCC 8th ed.), s/p TRUS Random and MRI fusion biopsy. PSA remains undetectable. No postradiation related issues. Plan see patient back in one year for further postradiation follow-up. Signed by: Demond High MD cc: Kevin Brewer MD ([facility]) [address] [place] [address] Portions of the above note extracted and edited from previous visit as well as active information included in the EMR. [facility] 04-07-2023 Nurse Note AUA=12 documented in this encounter [facility] 04-07-2023 History of Present illness Narrative Radiation [...] ASSESSMENT/PLAN: Prostate adenocarcinoma, initial PSA 4.3, biopsy [place] score 3 + 4 = 7 (grade group 2), clinical stage T2a, N0, M0, stage IIB [T1-T2, N0, M0, PSA <20, GG 2] (AJCC 8th ed.), s/p TRUS Random and MRI fusion biopsy. PSA remains undetectable. No postradiation related issues. Plan see patient back in one year for further postradiation follow-up. Signed by: Demond High MD cc: Kevin Brewer MD ([facility]) [address] [place] [address] Portions of the above note extracted and edited from previous visit as well as active information included in the EMR. documented in this encounter [facility] 02-10-2023 History of Present illness Narrative Subjective [...] in office today documented in this encounter [facility] Work Phone: 02-10-2023 Instructions Felix Caal MA [...] of your visit. documented in this encounter [facility] Work Phone: 09-30-2022 Note HNO ID: [id number] Author: Demond High MD Service: ? Author Type: Physician Type: Progress Notes Filed: 10/03/2022 8:14 AM Note Text: Radiation Oncology - Follow Up Note PATIENT NAME: Luis Luis PATIENT DIAGNOSIS: Prostate adenocarcinoma, initial PSA 4.3, biopsy [place] score 3 + 4 = 7 (grade [...] ASSESSMENT/PLAN: Prostate adenocarcinoma, initial PSA 4.3, biopsy [place] score 3 + 4 = 7 (grade group 2), clinical stage T2a, N0, M0, stage IIB [T1-T2, N0, M0, PSA <20, GG 2] (AJCC 8th ed.), s/p TRUS Random and MRI fusion biopsy. PSA remains undetectable. No postradiation related issues. Plan see patient back in 6 months for further postradiation follow-up. Signed by: Demond High MD cc: Kevin Brewer MD ([facility]) [address] [place] [id number] Portions of the above note extracted and edited from previous visit as well as active information included in the EMR. [facility] 09-30-2022 History of Present illness Narrative [...] cc: Kevin Brewer MD ([facility]) [address] [place] [address] Portions of the above note extracted and edited from previous visit as well as active information included in the EMR. documented in this encounter [facility] 09-30-2022 Nurse Note AUA 14 Naida Jacobo RN documented in this encounter [facility] 09-08-2022 Hospital Discharge instructions Patient Education 09/08/2022 [...] urethra. Follow these instructions at home: Take fptp-mlf-mgxinos and prescription medicines only as told by [...] provider. Document Revised: 09/04/2021 Document Reviewed: 09/04/2021 [email or web address] Patient Education 2022 [employer]. Follow Up Care 03/21/2022 12:44:25 With:CARINE DELGADO, Yin Patel, URL Address: [facility] [address] , [place] [address]- [phone] When:Within 8 Month(s) Comments:PSA [facility] Yang 04-01-2022 History of Present illness [...] Yancy Oneill APRN.ANNA documented in this encounter [facility] 04-01-2022 History of Present illness Narrative Radiation Oncology - Follow Up Note PATIENT NAME: Luis Luis PATIENT DIAGNOSIS: Prostate adenocarcinoma, initial PSA 4.3, biopsy [place] score 3 + 4 = 7 (grade [...] ASSESSMENT/PLAN: Prostate adenocarcinoma, initial PSA 4.3, biopsy [place] score 3 + 4 = 7 (grade [...] cc: Kevin Brewer MD ([facility]) [address] [place] [address] Portions of the above note extracted and edited from previous visit as well as active information included in the EMR. documented in this encounter [facility] 04-01-2022 Nurse Note AUA 14 Naida Jacobo RN documented in this encounter [facility] 03-21-2022 Hospital Discharge instructions Patient Education 03/21/2022 [...] who: Are older than age 65. Are -Ukrainian. Are obese. Have a family history of [...] cells. Follow these instructions at home: Take jlwu-tng-rlupjyf and prescription medicines only as told by [...] 02/16/2006 Document Revised: 01/29/2018 Document Reviewed: 10/27/2016 [email or web address] Patient Education [employer] Follow Up Care 09/30/2021 11:58:37 With:CARINE DELGADO, Yin Patel, URL Address: [address] [place], [place] [id number]- When: Unknown Comments:6 mos w/ PSA [facility] 02-06-2022 Miscellaneous Notes Patient has been rescheduled & notified of appointment. Monica Rodríguez Pt has PSA scheduled with Dr Grove in March and would like to postpone his follow up visit with Dr High until after that is done. PSS- please call pt and reschedule. He will be awaiting your call. Naida Jacobo RN documented in this encounter [facility] 09-30-2021 Hospital Discharge instructions Patient Education 09/30/2021 [...] urethra. Follow these instructions at home: Take iopt-yrj-evmxjho and prescription medicines only as told by [...] 02/16/2006 Document Revised: 01/11/2019 Document Reviewed: 03/23/2017 [email or web address] Patient Education [employer] Follow Up Care 04/01/2021 13:09:22 With:CARINE DELGADO, Yin Patel, URL Address: [facility] [address] , [place] [phone] When:Within 6 Month(s) Comments:w/ PSA [facility] Yang 08-14-2021 Nurse Note AUA 18 Naida Jacobo RN documented in this encounter [facility] 08-14-2021 History of Present illness Narrative Radiation Oncology - Follow Up Note PATIENT NAME: Luis Luis PATIENT DIAGNOSIS: Prostate adenocarcinoma, initial PSA 4.3, biopsy [place] score 3 + 4 = 7 (grade [...] cc: Kevin Brewer MD ([facility]) [address] [place] [address] documented in this encounter [facility] 08-09-2021 Hospital Discharge instructions Patient Education 08/09/2021 [...] including vitamins, herbs, eye drops, creams, and rchf-lvy-aoargdz medicines. Any problems you or family members [...] 07/27/2006 Document Revised: 01/29/2018 Document Reviewed: 02/25/2017 [email or web address] Patient Education 2020 [employer]. Follow Up Care 07/04/2021 11:13:01 With:CARINE DELGADO, Yin Patel, URL Address: [facility] [address], [place] [phone] When: Unknown [facility] 08-05-2021 Miscellaneous Notes Ok to resched Luis called in stating he tested positive for COVID-19 on 08/03/21 and his symptoms started , 08/01/21. He has a scheduled 6wk post implant follow up on 08/08/21. He will call us later in the week to possibly reschedule his follow up. Kelly Guo LPN documented in this encounter [facility] 07-25-2021 History of Present illness Narrative Patient: Luis Luis Date:07/25/2021 [facility] Department of Radiation Oncology [facility] RADIATION ONCOLOGY POST SEED IMPLANT SIMULATION NOTE [...] M.D. 23:26 PM documented in this encounter [facility] 06-27-2021 History of Present illness Narrative Date: 06/27/21 Facility: [facility] Procedure: prostate transperineal brachytherapy implant [...] [facility] documented in this encounter [facility] 06-11-2021 History of Present illness Narrative [facility] [...] Demond High MD documented in this encounter [facility] 06-11-2021 History of Present illness Narrative LUIS LUIS [id number] 06/11/2021 [facility] Department of Radiation Oncology [facility] RADIATION ONCOLOGY SIMULATION NOTE DATE OF SIMULATION: 06/11/2021 MACHINE: [employer] Flex Focus 500 Diagnosis: 185 (Prostate Gland) AREA:Prostate PATIENT POSITION: Supine CONTRAST: None PROTOCOL: None CONCURRENT THERAPY: None FIXATION DEVICE: UTS Stabilization device by [employer]. PROCEDURE: Patient was simulated in exaggerated dorsal lithotomy position. Serial images of the prostate were acquired using TRUS and reconstructed in 3D space. These images were imported into [employer] Prostate planning system where a plan was generated. ASSESSMENT/PLAN: Patient tolerated simulation procedure well. Electronically Signed Chavez High M.D. / LAURA 25:05 PM documented in this encounter [facility] Evaluation + Plan note Future Appointments Appointment Date:08/05/2021 08:45:00 AM Scheduled Provider:Yin GROVE MD Location:[facility] Appointment Type:URO Office Visit Appointment Date:09/30/2021 10:30:00 AM Scheduled Provider:Yin GROVE MD Location:[facility] Appointment Type:URO Office Visit Future Scheduled TestsPT & PTT 03/05/21BUN 03/05/21Creatinine 03/05/21Electrolyte Panel 03/05/21CBC w/ Auto Diff 03/05/21XR Chest 2 Views 03/05/21 [facility] Evaluation + Plan note Future Appointments Appointment Date:09/30/2021 10:30:00 AM Scheduled Provider:Yin GROVE MD Location:[facility] Appointment Type:URO Office Visit Diagnostic Tests PendingPSA Total 08/09/21 Future Scheduled TestsPT & PTT 03/05/21BUN 03/05/21Creatinine 03/05/21Electrolyte Panel 03/05/21CBC w/ Auto Diff 03/05/21XR Chest 2 Views 03/05/21 [facility] Evaluation + Plan note Future Appointments Appointment Date:03/21/2022 11:00:00 AM Scheduled Provider:Yin GROVE MD Location:[facility] Appointment Type:URO Office Visit Diagnostic Tests PendingPSA Total 09/30/21 Future Scheduled TestsPT & PTT 03/05/21BUN 03/05/21Creatinine 03/05/21Electrolyte Panel 03/05/21CBC w/ Auto Diff 03/05/21XR Chest 2 Views 03/05/21 [facility] Evaluation + Plan note Future Appointments Appointment Date:09/08/2022 10:15:00 AM Scheduled Provider:Yin GROVE MD Location:[facility] Appointment Type:URO Office Visit Diagnostic Tests PendingPSA Total 06/30/22 [facility] Evaluation + Plan note Future Appointments Appointment Date:05/11/2023 09:45:00 AM Scheduled Provider:Yin GROVE MD Location:[facility] Appointment Type:URO Office Visit Diagnostic Tests PendingPSA Total 09/08/22 [facility] Evaluation + Plan note Future Appointments Appointment Date:05/13/2024 09:45:00 AM Scheduled Provider:Yin GROVE MD Location:[facility] Appointment Type:URO Office Visit Diagnostic Tests PendingPSA Total 05/11/23 [facility] Evaluation note Diagnosis Malignant neoplasm of prostate [...] bundle branch block documented in this encounter [facility] Work Phone: Evaluation note* Diagnosis Malignant neoplasm of prostate (HCC)- Primary Malignant neoplasm of prostate [facility] of [facility] NarrativePatient returns in follow-up [...] diet lifestyle modific ation exercise and weight loss.[facility] [employer] Work Phone: History of Present illness Narrative* [...] merits of diet exercise and weight loss. [facility] [employer] Work Phone: Hospital course Narrative No data available for this section [facility] Discharge instructions No data available for this section [facility] note No data available for this section [facility] Purpose Family History No Family [...] Procedures ECG 12 Lead Parveen Multani MD [address] [place] [address] 2, [place] [id number] Referral ID Status Reason Start Date Expiration Date V isits Requested Visits Authorized [id number] Pending Review 02/10/2023 02/10/2024 1 1 Specialty Diagnoses / Procedures Referred By Myrtle romeo Referred To Contact Cardiology Diagnoses Paroxysmal SVT (supraventricular tachycardia) Procedures Follow Up In Cardiology Parveen Multani MD [address] [place] [address] [place] [address], [address] [address] Parveen Multani MD [address] [place] [address] 2, [place] [phone] Referral ID Status Reason Start Date Expiration Date V isits Requested Visits Authorized [id number] Authorized 02/10/2023 02/10/2024 1 1 Additional Source Comments (unrecognized sect ion and content) No Status Records FoundNo Status Records FoundNo Status Records FoundNo Status Records FoundNo Status Records FoundNo Status Records FoundNo Status Records FoundNo Status Records FoundNo Status Records Found INFORMATION SOURCE (unrecogn ized section and content) DATE CREATED AUTHOR 12/03/2019 [facility] DATE CREATED AUTHOR AUTHOR'S ORGANIZ ATION 04/21/2021 [facility] DATE CREATED AUTHOR AUTHOR'S ORGANIZ ATION 02/12/2022 [facility] DATE CREATED AUTHOR AUTHOR'S ORGANIZ ATION 02/12/2022 [facility] DATE CREATED AUTHOR AUTHOR'S ORGANIZ ATION 07/10/2022 [facility] [place] [facility] DATE CREATED AUTHOR AUTHOR'S ORGANIZ ATION 02/13/2023 [facility] DATE CREATED AUTHOR AUTHOR'S ORGANIZ ATION 04/17/2023 [facility] DATE CREATED AUTHOR AUTHOR'S ORGANIZ ATION 05/13/2023 [facility] DATE CREATED AUTHOR AUTHOR'S ORGANIZ ATION 10/30/2023 [facility] EPIC Source Comments (unrecognize d section and content) In the event this informatio n is protected by the Federal Confidentiality of Alcohol and Drug Abuse Patient Records regulations: The Federal rules restrict any use of the information to criminally investigate or prosecute any alcohol or drug abuse patient.[facility] event this information is protected by the Federal Confidentiality of Alcohol and Drug Abuse Patient Records regulations: The Federal rules restrict any use of the information to criminally investigate or prosecute any alcohol or drug abuse patient.[facility] the event this information is protected by the Federal Confidentiality of Alcohol and Drug Abuse Patient Records regulations: The Federal rules restrict any use of the information to criminally investigate or prosecute any alcohol or drug abuse patient.[facility] the event this information is protected by the Federal Confidentiality of Alcohol and Drug Abuse Patient Records regulations: The Federal rules restrict any use of the information to criminally investigate or prosecute any alcohol or drug abuse patient.[facility] the event this information is protected by the Federal Confidentiality of Alcohol and Drug Abuse Patient Records regulations: The Federal rules restrict any use of the information to criminally investigate or prosecute any alcohol or drug abuse patient.[facility] the event this information is protected by the Federal Confidentiality of Alcohol and Drug Abuse Patient Records regulations: The Federal rules restrict any use of the information to criminally investigate or prosecute any alcohol or drug abuse patient.[facility] the event this information is protected by the Federal Confidentiality of Alcohol and Drug Abuse Patient Records regulations: The Federal rules restrict any use of the information to criminally investigate or prosecute any alcohol or drug abuse patient.[facility] the event this information is protected by the Federal Confidentiality of Alcohol and Drug Abuse Patient Records regulations: The Federal rules restrict any use of the information to criminally investigate or prosecute any alcohol or drug abuse patient.[facility] the event this information is protected by the Federal Confidentiality of Alcohol and Drug Abuse Patient Records regulations: The Federal rules restrict any use of the information to criminally investigate or prosecute any alcohol or drug abuse patient.[facility] the event this information is protected by the Federal Confidentiality of Alcohol and Drug Abuse Patient Records regulations: The Federal rules restrict any use of the information to criminally investigate or prosecute any alcohol or drug abuse patient.[facility] the event this information is protected by the Federal Confidentiality of Alcohol and Drug Abuse Patient Records regulations: The Federal rules restrict any use of the information to criminally investigate or prosecute any alcohol or drug abuse patient.[facility] Teams (unrecognized sec tion and content) Order Control Clerk Blood Bank Relationship Specialty Start Date End Date Kevin Brewer [address] [place] [address] PCP - General Family Practice 03/22/21 Yin Grove MD [address] [place] [address] Referring Urology 03/22/21 Order Control Clerk Blood Bank Relationship Specialty Start Date End Date Kevin Brewer [address] [place] [address] PCP - General Family Practice 03/22/21 Yin Grove MD [address] [place] [address] Referring Urology 03/22/21 Order Control Clerk Blood Bank Relationship Specialty Start Date End Date Kevin Brewer [address] [place] [address] PCP - General Family Practice 03/22/21 Yin Grove MD [address] [place] [address] Referring Urology 03/22/21 Order Control Clerk Blood Bank Relationship Specialty Start Date End Date Kevin Brewer [address] [place] [address] PCP - General Family Practice 03/22/21 Yin Grove MD [address] [place] [address] Referring Urology 03/22/21 Order Control Clerk Blood Bank Relationship Specialty Start Date End Date Kevin Brewer [address] [place] [address] PCP - General Family Practice 03/22/21 Yin Grove MD [address] [place] [address] Referring Urology 03/22/21 Order Control Clerk Blood Bank Relationship Specialty Start Date End Date Kevin Brewer [address] [place] [address] PCP - General Family Medicine 03/22/21 Yin Grove MD [address] [place] [address] Referring Urology 03/22/21 Order Control Clerk Blood Bank Relationship Specialty Start Date End Date Kevin Brewer [address] [place] [address] PCP - General Family Medicine 03/22/21 Yin Grove MD [address] [place] [address] Referring Urology 03/22/21 Order Control Clerk Blood Bank Relationship Specialty Start Date End Date Kevin Brewer [address] [place] [address] PCP - General Family Medicine 03/22/21 Yin Grove MD [address] [place] [address] Referring Urology 03/22/21 Order Control Clerk Blood Bank Relationship Specialty Start Date End Date Kevin Brewer [address] [place] [address] PCP - General Family Medicine 03/22/21 Yin Grove MD [address] [place] [address] Referring Urology 03/22/21 Order Control Clerk Blood Bank Relationship Specialty Start Date End Date Kevin Brewer MD [address] [place] [address] PCP - General Family Medicine 02/05/23 Order Control Clerk Blood Bank Relationship Specialty Start Date End Date Kevin Brewer [address] [place] [address] PCP - General Family Medicine 03/22/21 Yin Grove MD [address] [place] [address] Referring Urology 03/22/21 Reason for Visit (unrecogniz ed section and content) Specialty Diagnoses / Procedures Referred By Contac t Referred To Contact Radiation Oncology / RADIATION ONCOLOGY Diagnoses Malignant neoplasm of prostate [facility] Im[facility] at [facility] Procedures SEED IMPLANT Demond High MD [address] [place] [address] [place] [address] Demond High MD [address] [place] [address] [place] [address] Referral ID Status Reason Start Date Expiration Date V isits Requested Visits Authorized [id number] Authorized 06/27/2021 03/01/2022 99 99 Reason Comments FYI-No Action Needed Covid19 Concern Reason Comments Prostate Cancer Reason Comments Future Appointment Reason Comments Annual Exam Specialty Diagnoses / Procedures Referred By Contac t Referred To Contact Diagnoses Paroxysmal SVT (supraventricular tachycardia) Procedures ECG 12 Lead Parveen Multani MD [address] [facility] [address] [place] [address] Referral ID Status Reason Start Date Expiration Date V isits Requested Visits Authorized [id number] Pending Review 02/10/2023 02/10/2024 1 1 FOR [...] BE BASED ON THE PRIMARY CLINICAL RECORDS. [facility] [employer] provides no warranty or guarantee of the accuracy or completeness of information in this document.
[2023-11-17] MEDS: LACTATED RINGER'S SOLUTION 1,000 ML 50 ML IV (07:36)
--- NOTE | 2023-11-17 07:56 | W.PM.PROCNOT ---
Date of procedure: 11/17/23 Pre-op diagnosis: screening colonoscopy Post-op diagnosis: other (sigmoid polyp at 60cm) Procedure: Previous colonoscopy: 2023 incomplete procedure: screening colonoscopy with hot snare complete sigmoid polypectomy at 60cm The patient was given IV conscious sedation.? The patient's SPO2 remained above 90% throughout the procedure. The colonoscope was inserted per rectum and advanced under direct vision to the cecum without difficulty.? The prep was ok.? Findings: Terminal ileum os: normal Cecum/Ascending colon: normal Transverse colon: normal Descending/Sigmoid colon: subcentimeter sigmoid polyp at 60 cm removed with hot snare technique (complete polypectomy) Rectum/Anus: examined in normal and retroflexed positions and was normal Withdrawal Time was (minutes): 15 The colon was decompressed and the scope was removed.? The patient tolerated the procedure well. Recommendations/Plan: 1.? Lifestyle and dietary modifications as discussed 2.? F/U Biopsies 3.? F/U in 3-5 years 4.? Discussed with the family Anesthesia: MAC Surgeon: Leonardo Correia Estimated blood loss (mL): 0 Pathology: other (sigmoid polyp) Condition: stable Disposition: PACU
[2023-11-17 08:46] VITALS: BP 148/91; PULSE 72; TEMP 36.5; O2SAT 95
[2023-11-17 09:01] VITALS: BP 144/96; PULSE 71; O2SAT 96
[2023-11-17 09:16] VITALS: BP 135/94; PULSE 76; O2SAT 96
== END 2023-11-17 09:16 | disposition home or self-care (01) ==
PROVIDERS: PCP Family Medicine; Visit Provider Surgery
PROC: (CPT 45385; principal; 2023-11-17 07:55)
DX: Z12.11 Encounter for screening for malignant neoplasm of colon (principal); D12.5 Benign neoplasm of sigmoid colon; Z90.79 Acquired absence of other genital organ(s); G47.33 Obstructive sleep apnea (adult) (pediatric); E78.5 Hyperlipidemia, unspecified; I10 Essential (primary) hypertension; I48.91 Unspecified atrial fibrillation; N40.0 Benign prostatic hyperplasia without lower urinary tract symptoms; Z85.46 Personal history of malignant neoplasm of prostate
CPT/HCPCS: 45385; 88305; J2704

== ENCOUNTER 2023-12-03 12:51 | Outpatient (OUT) | payer MEDICARE, SELFPAY ==
[2023-12-03 14:02] LABS: Prostate Specific Antigen Dx 0.13 ng/mL (<=4.00)
== END 2023-12-03 12:52 | disposition home or self-care (01) ==
LOC: LAB 12:52
PROVIDERS: PCP Family Medicine; Visit Provider Urology
DX: C61 Malignant neoplasm of prostate (principal)
CPT/HCPCS: 36415; 84153

== ENCOUNTER 2023-12-29 13:33 | Outpatient (OUT) | payer MEDICARE, SELFPAY ==
--- NOTE | 2023-12-29 13:38 | MR_ITS ---
[address] [address] Patient Name: LUIS KHAN MRN: [id number] date: 1950 Sex: M Assigned Patient Location: MRI Current Patient Location: Accession/Order Number: [id number] Exam Date: 12/29/2023 13:50 Report Date: 12/31/2023 07:23 At the request of: SHABBIR BREWER Procedure: MR lumbar spine wo con EXAMINATION: MR lumbar spine wo con HISTORY: Lumbar Radiculopathy, Right Sided Low Back Pain COMPARISON: No relevant comparison available. TECHNIQUE: A variety of imaging planes and parameters were utilized for visualization of suspected pathology. FINDINGS: For the purposes of numbering, sagittal T2 image # 7 extends from the T11 vertebral body superiorly to the S3 level inferiorly. PARASPINAL AREA: Normal with no visible mass. BONES: Normal alignment with no acute fracture or spondylolisthesis. Moderate degenerative spondylosis and facet osteoarthropathy. No bone edema. CORD/CAUDA EQUINA: Normal caliber, contour, and signal intensity. DISC LEVELS: 12-L1: No significant disc/facet abnormality, spinal stenosis, or foraminal stenosis. L1-L2: Moderate disc space narrowing and disc desiccation. Moderate diffuse disc/osteophyte complex extending posteriorly 3.2 mm. Mild ligamentum flavum hypertrophy. No central or foraminal stenosis L2-L3: Moderate disc space narrowing and disc desiccation. Mild posterior disc protrusion extending posteriorly up to 2.8 mm. No central or foraminal stenosis L3-L4: Disc desiccation. Mild posterior disc protrusion. No central or foraminal stenosis L4-L5: Disc desiccation. Mild posterior disc protrusion. No central or foraminal stenosis L5-S1: No significant disc/facet abnormality, spinal stenosis, or foraminal stenosis. MR/MR lumbar spine wo con IMPRESSION: Degenerative changes without central or foraminal stenosis Electronically authenticated by: KERRI ORELLANA Date: 12/31/2023 07:23
--- OUTSIDE RECORDS SUMMARY | 2023-12-29 13:56 | XMS_ITS | CCD ---
Author Organization [facility] Care Team Providers Care 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 Name Role Phone Kevin Brewer Unavailable Unavailable Unavailable Unavailable Unavailable Kevin Brewer Primary Care Provider Yin Hawk MD Unavailable KEVIN BREWER Primary Care Physician Unavailable Unavailable Hansa II, Parveen Wilder Referring Unav ailable Naderer, Dr. Kevin Vega Primary Care Unavai lable McGuinn II, Parveen Wilder Attending Unav ailable McGuinn II, Parveen Wilder Attending Unav ailable McGuinn II, Parveen Wilder Referring Unav ailable Naderer, Dr. Kevin Vega Primary Care Unavai lable McGuinn II, Parveen Wilder Attending Unav ailable McGuinn II, Parveen Wilder Referring Unav ailable Naderer, Dr. Kevin Vega Primary Care RachaelvaKevin Bal Primary Care Provider Yin Hawk MD Unavailable [phone] KEVIN BREWER Primary Care Unavailable NADEREAmanda, DR KEVIN Scott Admitting Unavailable NADERER, DR KEVIN Scott Attending Unavailable NADERER, DR KEVIN Scott Consulting Unavailable NADERER, DR KEVIN Scott Primary Care Unavailable ENGELER, DR BOAZ Denney Admitting Unavailable ENGELER, DR BOAZ Denney Attending Unavailable ENGELER, DR BOAZ Denney Consulting Unavailable NADEREAmanda, DR KEVIN Scott Primary Care Unavailable YIN HAWK Admitting Unavailable YIN HAWK Attending Unavailable YIN HAWK Consulting Unavailable NADEREAmanda, DR KEVIN Scott Primary Care Unavailable YIN HAWK Admitting Unavailable YIN HAWK Attending Unavailable YIN HAWK Consulting Unavailable Kevin Brewer MD Primary Care Provider PARVEEN SANTO Attending Unavailable KEVIN BREWER Primary Care UnavailDemond White Attending Unavailable KEVIN BREWER Primary Care Unavailable Demond BUTLER Referring Unavailable KEVIN BREWER Primary Care Unavailable Demond BUTLER Referring Unavailable Demond BUTLER Attending Unavailable Yin HAWK Attending Unavailable Yin HAWK Attending Unavailable Yin HAWK Attending Unavailable DO Franchesca Nj Attending Provider [phone] Franchesca Nj Attending Unavailable Franchesca Nj Admitting Unavailable Kevin Brewer Primary Care Provider Yin Hawk MD Unavailable Kevin Brewer MD Primary Care Provider [phone] KEVIN BREWER Attending Unavailable FRANCHESCA [place] Attending Unavailable FRANCHESCA [place] Attending Unavailable NAIDA HOBSON Attending Unavailable KEVIN BREWER Attending Unavailable Allergies Allergy Classification Reported Allergen(s) Allergy Type Date of Onset Reaction(s) Facility (1 source) tamsulosin Drug Allergy 05-31-2021 [facility] Repository Medications Current Medications Medication Drug Class(es) Dates Sig (Normalized) Sig (Original) acetaminophen 325 mg oral tablet (16 sources) Start: 03-07-2021 acetaminophen (TYLENOL) 325 mg tablet Take by mouth. 03/07/2021 Active Start: 03-07-2021 take 2 tablets by [facility] at bedtime as needed for pain acetaminophen 325 mg Tab 650 mg = 2 tab(s), Oral, Bedtime, PRN as needed for pain Start Date: 03/07/21 Status: Ordered Comment on above: Take by mouth. Acetaminophen / diphenhydrAM INE (9 sources) Histamine-1 Receptor Antagonist acetaminophen/diphen hydr amine (TYLENOL PM EXTRA STRENGTH ORAL) Take by mouth. Active acetaminophen/di phenhydramine (TYLENOL PM EXTRA STRENGTH ORAL) Take by mouth. 0 Active Comment on above: Take by mouth. aspirin 81 mg oral tablet (10 sources) Platelet Aggregation Inhibitor, Nonsteroidal Anti-inflammatory Drug [...] Start: 0 take 1 tablet by mouth at bedtime atorvastatin (Lipitor) 10 MG tablet Take 10 mg by mouth at bedtime 04/02/2023 Active Comment on above: Take 10 mg by mouth. 24 hr dilTIAZem hydrochloride 180 mg extended release oral capsule (20 sources) Calcium Channel Braeden Start: 0 take 1 tablet by mouth every twenty-four hours dilTIAZem LA (CARDIZEM LA) 240 mg 24 hr tablet Take 240 mg by mouth. 09/28/2019 Active Start: 09-28-2019 take 1 capsule by mo ut in the morning, then take 1 capsule by mouth every twenty-four hours dilTIAZem CD (Cardizem CD) 180 MG 24 hr capsule Take 180 mg by mouth in the morning. 01/13/2023 Active Comment on above: Take 180 mg by mouth . Take 240 mg by mouth . DilTIAZem (Eqv-Tiazac) 180 mg/24 hours oral capsule, extended release (4 sources) Start: 01-19-20 DilTIAZem (Eqv-Tiazac) 180 mg/24 hours oral capsule, extended release 180 mg = 1 cap(s), Oral, Daily, irregular heart rate, Refills(s) 0 Start Date: 01/18/21 Status: Ordered furosemide 40 mg oral tablet (7 sources) Loop Diuretic Start: 07-28-19 24 take 1 tablet by mouth once daily as needed for edema furosemide (Lasix) 40 MG tablet Indications: Bilateral leg edema Take 1 tablet (40 mg) by mouth Daily as needed (Leg Edema) 30 tablet 5 07/28/2023 Active meloxicam 15 mg oral tablet (2 sources) Nonsteroidal Anti-inflammatory Drug Start: 12-21-19 24 take 1 tablet by mouth once daily at mealtime meloxicam (Mobic) 15 MG tablet Indications: Lumbar radiculopathy Take 1 tablet (15 mg) by mouth Daily Take with food 30 tablet 5 12/21/2023 Active Start: 12-21-2023 take 1 tablet by cailin th once daily at mealtime meloxicam (Mobic) 15 MG tablet Indications: Lumbar radiculopathy Take 1 tablet (15 mg) by mouth Daily Take with food 30 tablet 5 12/21/2023 Active Multi Vitamin+ (3 sources) Start: 01-21-2021 take 1 capsule by mouth once daily Multi Vitamin+ 1 cap, Oral, Daily, Refill(s) 0, Prophylaxis Start Date: 01/21/21 Status: Ordered 24 hr oxybutynin chloride 10 mg extended release oral tablet (2 sources) Cholinergic Muscarinic Antagonist Start: 08-09-2021 oxybutynin 10 mg ER Tab Refills(s) 0 Start Date: 08/09/21 Status: Ordered Start: 08-09-2021 oxybutynin 10 mg ER Tab Refills(s) 0 Start Date: 08/09/21 Status: Ordered potassium chloride 20 meq extended release oral tablet (7 sources) Start: 07-28-2023 take 1 tablet by mouth once daily as needed potassium chloride CR (K-Tab) 20 MEQ ER tablet Indications: Bilateral leg edema Take 1 tablet (20 mEq) by mouth Daily as needed (Use with furosemide) Do not crush, chew, or split. 30 tablet 5 07/28/2023 Active propafenone hydrochloride 150 mg oral tablet (20 sources) Antiarrhythmic Start: 07-25-2021 End: 04-27-2024 propafenone (Rythmol) 150 MG tablet Take 150 mg by mouth in the morning and 150 mg at noon and 150 mg in the evening. 04/28/2023 04/27/2024 Active Comment on above: Take 150 mg by mouth three times daily. tamsulosin hydrochloride 0.4 mg oral capsule (20 sources) alpha-Adrenergic Braeden Start: 08-09-2021 End: 11-08-2024 take 1 capsule by mouth once daily tamsulosin (Flomax) 0.4 MG 24 hr capsule Indications: Prostate cancer (CMS/HCC) Take 1 capsule (0.4 mg) by mouth Daily 90 capsule 3 11/09/2023 11/08/2024 Active Comment on above: Take 0.4 mg by mouth once daily. Completed/Discontinued Medications Medication Drug Class(es) Dates Sig (Normalized) Sig (Original) ciprofloxacin 500 mg oral tablet (2 sources) Quinolone Antimicrobial Start: 01-21-2021 take 1 tablet by mouth twice daily [...] oral capsule (7 sources) Oxidation-Reduction Agent Start: 08-09-2021 take 1 capsule by mouth twice daily URO-MP 118-10-40.8-36 mg Take 1 capsule by mouth twice daily. 0 08/09/2021 Active Comment on above: Take 1 capsule by [facility] twice daily. lisinopril 10 mg oral tablet (1 source) Angiotensin Converting Enzyme Inhibitor Start: 09-27-2019 End: 09-28-2019 take 10 mg by mouth once daily Lisinopril Discontinued 10 MG PO Daily September 27, 2019 12:00am September 28, 2019 1:39pm naproxen sodium 220 mg oral capsule (2 sources) Nonsteroidal Anti-inflammatory Drug naproxen sodium (ALEVE) 220 mg cap Take by mouth. 0 Active Comment on above: Take by mouth. simvastatin 20 mg oral tablet (1 source) HMG-CoA Reductase Inhibitor Start: 09-27-2019 End: 09-28-2019 take 20 mg by mouth at bedtime Simvastatin Discontinued 20 MG PO Bedtime September 27, 2019 12:00am September 28, 2019 1:39pm Problems Active Problems Problem Classification Problem Date Documented Date Episodic/Chronic Cancer of prostate (20 sources) Malignant tumor of prostate; Translations: [Malignant neoplasm of prostate] Onset: 08-09-2021 Chronic Cardiac dysrhythmias (20 sources) Paroxysmal supraventricular tachycardia; Translations: [Paroxysmal supraventricular tachycardia] Onset: 02-06-2023 01-18-2021 Chronic Conduction disorders (4 sources) Bifascicular block; Translations: [Bifascicular block] Onset: 02-10-2023 02-10-2023 Chronic Disorders of lipid metabolism (20 sources) Hyperlipidemia; Translations: [Other and unspecified hyperlipidemia] Onset: 07-09-2022 01-18-2021 Chronic Esophageal disorders (13 sources) Gastroesophageal reflux disease without esophagitis; Translations: [Gastro-esophageal reflux disease without esophagitis] Onset: 06-29-2023 01-18-2021 Chronic Essential hypertension (20 sources) Hypertensive disorder; Translations: [Unspecified essential hypertension] Onset: 07-02-2022 01-18-2021 Chronic Genitourinary symptoms and ill-defined conditions (2 sources) Urge incontinence; Translations: [Urge incontinence of urine] Onset: 05-11-2023 Chronic Hyperplasia of prostate (19 sources) Benign prostatic hypertrophy with outflow obstruction; Translations: [Benign prostatic hyperplasia with lower urinary tract symptoms] Onset: 08-09-2021 01-21-2021 Chronic Nonspecific chest pain (10 sources) Chest pain; Translations: [Chest pain, unspecified] Onset: 02-06-2023 02-06-2023 Episodic Other aftercare (1 source) Other penitentiary (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; Translations: [OTH USP CURRENT DRUG THERAPY] Onset: 07-09-2022 Episodic Other diseases of kidney and ureters (1 source) Urinary tract obstruction; Translations: [Other obstructive and reflux uropathy] Onset: 09-27-2021 Episodic Other lower respiratory disease (2 sources) Hypoxia; Translations: [Hypoxemia] 12-02-2023 Episodic Other lower respiratory disease (2 sources) Snoring; Translations: [Snoring] 12-02-2023 Episodic Other nutritional; endocrine; and metabolic disorders [...] 40.0-44.9, adult (CMS/HCC)] Onset: 02-10-2023 Chronic Other nutritional; endocrine; and metabolic disorders (9 sources) Morbid obesity; Translations: [Morbid (severe) obesity due to excess calories] Onset: 06-29-2023 12-02-2023 Chronic Other screening for suspected conditions (not mental disorders or infectious disease) (6 sources) Raised prostate specific antigen 01-21-2021 Episodic Residual codes; unclassified (6 sources) Sleep apnea 03-07-2021 Chronic Residual codes; unclassified (9 sources) Obstructive sleep apnea syndrome; Translations: [Obstructive sleep apnea (adult) (pediatric)] Onset: 06-29-2023 12-02-2023 Chronic Residual codes; unclassified (2 sources) Daytime somnolence; Translations: [Other hypersomnia] 12-02-2023 Chronic Residual codes; unclassified (6 sources) Family history of prostate cancer 01-21-2021 Episodic Residual codes; unclassified (5 sources) Family history of cancer; Translations: [Family history of malignant neoplasm of prostate] Onset: 08-09-2021 Episodic Residual codes; unclassified (9 sources) Bilateral lower limb edema; Translations: [Localized edema] Onset: 06-29-2023 06-29-2023 Episodic Screening and history of mental health and substance abuse codes (9 sources) Ex-smoker; Translations: [Personal history of tobacco use] Episodic Comment on above: Quit in 1970s; Spondylosis; intervertebral disc disorders; other back problems (12 sources) Lumbar radiculopathy; Translations: [Chronic low back pain] Onset: 12-21-2023 12-21-2023 Episodic Unclassified (1 source) Supraventricular tachycardia, unspecified; Translations: [Supraventricular tachycardia, unspecified] Onset: 02-06-2023 Past or Other Problems Problem Classification Problem Date Documented Date Episodic/Chronic Calculus of urinary tract (1 source) Calculus of ureter; Translations: [CALCULUS OF URETER] Onset: 09-24-2021 Episodic Other aftercare (7 sources) Long-term current use of drug therapy; Translations: [Other penitentiary (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] Onset: 06-29-2023 06-29-2023 Episodic Other lower respiratory disease (7 sources) Dyspnea on exertion; Translations: [Shortness of breath] Onset: 06-29-2023 Resolved: 12-21-2023 06-29-2023 Episodic Residual codes; unclassified (1 source) Family history of malignant neoplasm of prostate; Translations: [FAMILY HX MALIG NEOPLASM PROSTATE] Onset: 03-13-2022 Episodic Unclassified (1 source) Onset: 02-10-2023 02-10-2023 Unclassified (1 source) Supraventricular tachycardia, unspecified; Translations: [Supraventricular tachycardia, unspecified] Onset: 02-10-2023 Results Test Name Value Interpretation Reference Range Facility MHPT PSA, DIAGNOSTICon 12-02 PROSTATE SPECIFIC ANTIGEN DX 0.13 ng/mL NINF - 4.00 ng/mL [facility]-17-2023 L Specimen: [id number] Received: 11/18/23 Status: LEILANI Javier Num: [id number] Spec Type: Surgical Subm Dr: Franchesca Nj DO Tissues: A Colon Biopsy (SIGMOID POLYP) Procedures: HE/2, Gross/Micro L4 Age/ Patient Sex Location Account Attending Physician Luis Luis 73/M LABELL [id number] Franchesca Nj DO SPEC NUM: [id number] RECD: 11/18/23 STATUS: LEILANI JAVIER NUM: [id number] LULÚ: 11/17/[address]: Franchesca Nj DO ENTERED: 11/18/23 [facility] DR: Marta,Solange SPEC TYPE: Surgical DEPT: CECILIO RODRIGUEZ ENTERED BY: [id number] RECV BY: [id number] ORDERED: HE/2, Gross/Micro L4 ORDERED: HE/2, Gross/Micro L4 Pathological Diagnosis Polyp, sigmoid colon: Tubular Adenoma. - Negative For High Grade Dysplasia And Malignancy. Clinical Information Sigmoid polypectomy Gross Description The specimen is received in formalin with the patient's name and sigmoid polyp and consists of 3 freed irregular shaped portions of soft tissue ranging in size from 0.4 to 0.5 cm in greatest dimension. The specimen is entirely submitted in cassette A1. CPT Codes 26165 Specimen: [id number] Received: 11/18/23 Status: LEILANI Javier Num: [id number] Spec Type: Surgical Subm Dr: Franchesca Nj DO Tissues: A Colon Biopsy (SIGMOID POLYP) Procedures: HE/Basilio, Gross/Micro L4 Patient: Luis Luis [id number] (Continued) Signed (signature on file) Brynn Watson MD 11/19/231926 Normal [facility] Ambulatory Visit Summaryon 0 05-11-2023 Ambulatory Visit Summary LUIS LUIS :1950 Visit Date:05/11/2023 Ambulatory Visit Instructions Your Diagnosis Prostate cancer Urge incontinence BPH with urinary obstruction Family history of prostate cancer Your Care Team Attending Physician - Yin HAWK MD Primary Care Physician - KEVIN BREWER [...] DELGADO, Yin Patel Where: [facility] Patient Educationon 05-11-19 24 Patient Education Oncology [...] Where to find more information ? The [employer]: www.cancer.org ? [employer]: www.auanet.org Contact a health care [...] adds flu (more content not included)... Normal [facility] Urology Office/Clinic Noteon 05-11-2023 Urology Office/Clinic [...] and history for this patient from Dr. Hawk. I have reviewed and verified the staff [...] done 09/30/21. Continues to follow w/ Dr. Butler. Discussed PSA level, remains stable and undetectable. [...] URL [facility] [address], [place] [address]- [phone] Additional Instructions: PSA in 6 mos and f/u in 1 yr w/ repeat PSA Patient Education Prostate Cancer Screening I, Kimberly Nash, personally scribed for Dr. Hawk on 05/11/2023 10:32:17. . Documentation recorded by the scribe, Kimberly Nash, accurately reflects the services(s) I performed and decisions made by me. Authenticated by Dr. Hawk on 05/11/2023 10:34:42. Problem List/Past Medical History [...] Prostate ca (more content not included)... Normal [facility] Comment on above: Result Comment: Elec tronically Signed By: Yin HAWK MD\.br\Date and Time Signed: 05/11/23 10:34 EDT\.br\Electronically Co-Signed By: Kimberly Nash\.br\Date and Time Co-Signed: 05/11/23 10:32 EDT CNOVon 04-07-2023 CNOV Office Visit (RADTSA ) -------- BILLLUIS J ([id number]) 1950 M Date Time Provider Department 04/07/23 1:15 PM Demond BUTLER During your visit today, we recorded the following information about you: Temperature Pulse Respiration Blood pressure 97.9 degrees 80/minute 16/minute 139/83 Weight 149.2 kg Demond Butler MD 04/15/2023 3:32 PM Signed Radiation Oncology - Follow Up Note PATIENT NAME: Luis Luis PATIENT DIAGNOSIS: Prostate adenocarcinoma, initial PSA 4.3, biopsy Elysian score 3 + 4 = 7 (grade [...] ASSESSMENT/PLAN: Prostate adenocarcinoma, initial PSA 4.3, biopsy Elysian score 3 + 4 = 7 (grade group 2), clinical stage T2a, N0, M0, stage IIB [T1-T2, N0, M0, PSA <20, GG 2] (AJCC 8th ed.), s/p TRUS Random and MRI fusion biopsy. PSA remains undetectable. No postradiation related issues. Plan see patient back in one year for further postradiation follow-up. Signed by: Demond Butler MD cc: Kevin Brewer MD ([facility]) [address] [place] [address] Portions of the above note extracted and edited from previous visit as well as active information included in the EMR. Kelly Guo LPN 04/15/2023 3:32 PM Signed AUA=12 Referring Provider: Demond BUTLER [[id number]] Allergies As of Date: 04/07/2023 (No Known Allergies) Date Reviewed: 04/07/2023 Reviewed by: Kelly Guo LPN - Fully Assessed Reason for Visit: Prostate Cancer [590] Primary Visit Diagnosis:Malignant neoplasm of prostate (HCC) [C61] Order(s):PSA (OUTSIDE) [8696753] Order #: [id number] PSA/PROSTSPECAG DIAG [SQPSA] Order #: [id number] FUTURE Prescriptions as of 04/15/2023 - naproxen [...] for Encounter Date Provider Department Center 04/07/2023 [id number] [facility] Encounter Status:Closed by Demond BUTLER on 04/15/23 Normal [facility] Lab Reportson 04-01-2023 Lab Reports [id number] F Normal [facility] ECG 12 Leadon 02-10-2023 Normal sinus rhythm Right bundle branch block left anterior fascicular block Bifascicular block Cannot exclude age-indeterminate inferior infarct QTc 443 ms [facility] Work Phone: CNOVon 09-30-2022 CNOV Office Visit (RADTSA ) -------- LUIS LUIS ([id number]) 1950 M Date Time Provider Department 09/30/22 2:00 PM Demond BUTLER During your visit today, we recorded the following information about you: Temperature Pulse Respiration Blood pressure 96.7 degrees 92/minute 18/minute 143/85 Weight 145 kg Naida Jacobo RN 10/03/2022 8:14 AM Signed AUA 14 YOLANDA Solano G Phillip, MD 10/03/2022 8:14 AM Signed Radiation Oncology - Follow Up Note PATIENT NAME: Luis Luis PATIENT DIAGNOSIS: Prostate adenocarcinoma, initial PSA 4.3, biopsy Elysian score 3 + 4 = 7 (grade [...] ASSESSMENT/PLAN: Prostate adenocarcinoma, initial PSA 4.3, biopsy Elysian score 3 + 4 = 7 (grade group 2), clinical stage T2a, N0, M0, stage IIB [T1-T2, N0, M0, PSA <20, GG 2] (AJCC 8th ed.), s/p TRUS Random and MRI fusion biopsy. PSA remains undetectable. No postradiation related issues. Plan see patient back in 6 months for further postradiation follow-up. Signed by: Demond Butler MD cc: Kevin Brewer MD ([facility]) [address] [place] [address] Portions of the above note extracted and edited from previous visit as well as active information included in the EMR. Referring Provider: Demond BUTLER [[id number]] Allergies As of Date: 09/30/2022 (No Known Allergies) Date Reviewed: 09/30/2022 Reviewed by: Naida Jacobo RN - Fully Assessed Reason for Visit: Prostate Cancer [590] Primary Visit Diagnosis:Malignant neoplasm of prostate (HCC) [C61] Order(s):PSA (OUTSIDE) [[id number]] Order #: [id number] PSA/PROSTSPECAG DIAG [SQPSA] Order #: [id number] FUTURE Prescriptions as of 10/03/2022 - naproxen [...] for Encounter Date Provider Department Center 09/30/2022 [id number] [facility] Encounter Status:Closed by Demond BUTLER on 10/03/22 Normal [facility] Lab Reportson 09-09-2022 Lab Reports [id number]: 127 Normal [facility] Ambulatory Visit Summaryon 0 09-08-2022 Ambulatory Visit Summary LUIS LUIS :1950 Visit Date:09/08/2022 Ambulatory Visit Instructions Your Diagnosis Prostate cancer BPH with urinary obstruction Family history of prostate cancer Tests Performed Urnls Dip Stick Auto w/o Microscopy POC [id number] Your Care Team Attending Physician - Yin HAWK MD Primary Care Physician - KEVIN BREWER [...] DELGADO, Yin Patel Where: [facility] Patient Educationon 09-09-19 23 Patient Education Urology [...] Follow these instructions at home: ? Take [id number] and prescription medicines only as told by [...] the medicine (more content not included)... Normal [facility] Urology Office/Clinic Noteon 09-08-2022 Urology Office/Clinic [...] and history for this patient from Dr. Hawk. I have reviewed and verified the staff [...] Contact Information CARINE DELGADO, Yin Patel, URL In 8 months [facility] [address], [place] [address]- [phone] Additional Instructions: PSA Patient Education Benign Prostatic Hyperplasia I, Kimberly Nash, personally scribed for Dr. Hawk on 09/08/2022 12:20:46. . Documentation recorded by the scribe, Kimberly Nash, accurately reflects the services(s) I performed and decisions made by me. Authenticated by Dr. Hawk on 09/08/2022 12:22:21. Problem List/Past Medical History [...] lifetime) To (more content not included)... Normal [facility] Comment on above: Result Comment: Elec tronically Signed By: Yin HAWK MD\.br\Date and Time Signed: 09/08/22 12:22 EDT\.br\Electronically Co-Signed By: Kimberly Nash\.br\Date and Time Co-Signed: 09/08/22 12:20 EDT CBC AUTO DIFFon 07-02-2022 BASO # 0.1 103/ul Normal 0.0-0.1 [facility] Comment on above: Performed By: #### C BC #### [facility] [address] [place] [address] Dr. Shama Naylor Basophils/100 WBC (Bld) 0.8 % Normal 0.2-2.0 [facility] Comment on above: Performed By: #### C BC #### [facility] [address] [place] [address] Dr. Shama Naylor EO # 0.1 103/ul Normal 0.0-0.7 [facility] Comment on above: Performed By: #### C BC #### [facility] [address] [place] [address] Dr. Shama Naylor Eosinophils/100 WBC (Bld) 2.0 % Normal 0.9-7.0 [facility] Comment on above: Performed By: #### C BC #### [facility] [address] [place] [address] Dr. Shama Naylor Erythrocyte distribution width (RBC) [Ratio] 13.6 % Normal 11.0-15.0 [facility] Comment on above: Performed By: #### C BC #### [facility] [address] [place] [address] Dr. Shama Naylor Hematocrit (Bld) [Volume fraction] 40.0 % Critically low 42.0-54.0 [facility] Comment on above: Performed By: #### C BC #### [facility] [address] [place] [address] Dr. Shama Naylor Hemoglobin (Bld) [Mass/Vol] 13.6 g/dL Critically low 14.0-18.0 [facility] Comment on above: Performed By: #### C BC #### [facility] [address] [place] [address] Dr. Shama Naylor IG # 0.02 10e3/ul Normal 0.00-0.03 [facility] Comment on above: Performed By: #### C BC #### [facility] [address] [place] [address] Dr. Shama Naylor IG % 0.3 % Normal 0.0-0.5 [facility] Comment on above: Performed By: #### C BC #### [facility] [address] [place] [address] Dr. Shama Naylor LYMPH # 1.6 103/ul Normal 1.2-3.8 [facility] Comment on above: Performed By: #### C BC #### [facility] [address] [place] [address] Dr. Shama Naylor Lymphocytes/100 WBC (Bld) 26.0 % Normal 20.5-60.0 [facility] Comment on above: Performed By: #### C BC #### [facility] [address] [place] [address] Dr. Shama Naylor MANUAL DIFF REQ NO Normal [facility] Comment on above: Performed By: #### C BC #### [facility] [address] [place] [address] Dr. Shama Naylor MCH (RBC) [Entitic mass] 30.8 pg Normal 25.9-34.0 [facility] Comment on above: Performed By: #### C BC #### [facility] [address] [place] [address] Dr. Shama Naylor MCHC (RBC) [Mass/Vol] 34.0 g/dL Normal 29.9-35.2 [facility] Comment on above: Performed By: #### C BC #### [facility] [address] [place] [address] Dr. Shama Naylor MCV (RBC) [Entitic vol] 90.7 fL Normal 80.0-94.0 [facility] Comment on above: Performed By: #### C BC #### [facility] [address] [place] [address] Dr. Shama Naylor MONO # 0.4 103/ul Normal 0.3-0.8 [facility] Comment on above: Performed By: #### C BC #### [facility] [address] [address] [address] Shama Naylor Monocytes/100 WBC (Bld) 6.1 % Normal 1.7-12.0 [facility] Comment on above: Performed By: #### C BC #### [facility] [address] [address] [address] Shama Naylor NEUT # 3.9 103/ul Normal 1.4-6.5 [facility] Comment on above: Performed By: #### C BC #### [facility] [address] [address] [address] Shama Naylor Neutrophils/100 WBC (Bld) 64.8 % Normal 43.0-75.0 [facility] Comment on above: Performed By: #### C BC #### [facility] [address] [place] [address] Dr. Shama Naylor Platelet mean volume (Bld) [Entitic vol] 10.3 fL Normal 9.5-13.5 [facility] Comment on above: Performed By: #### C BC #### [facility] [address] [place] [address] Dr. Shama Naylor PLT 165 103/ul Normal 150-450 [facility] Comment on above: Performed By: #### C BC #### [facility] [address] [place] [address] Dr. Shama Naylor RBC 4.41 106/ul Critically low 4.70-6.10 [facility] Comment on above: Performed By: #### C BC #### [facility] [address] [place] [address] Dr. Shama Naylor WBC 6.0 103/ul Normal 4.0-11.0 [facility] Comment on above: Performed By: #### C BC #### [facility] [address] [place] [address] Dr. Shama Naylor LIPID PROFILEon 07-02-2022 CHOL-HDL RATIO NORM SEE BELOW Normal [facility] Comment on above: Result Comment: 3.3 - 4.4 LOW RISK 4.4 - 7.1 AVERAGE RISK 7.1 - 11.0 MODERATE RISK >11.0 HIGH RISK Performed By: #### L IPID, BMP, LIVER #### [facility] [address] [address] [address] Shama Naylor Cholesterol [Mass/Vol] 157 mg/dL Normal <=200 [facility] Comment on above: Performed By: #### L IPID, BMP, LIVER #### [facility] [address] [address] [address] Shama Naylor Cholesterol in HDL [Mass/Vol] 58 mg/dL Normal 40-60 [facility] Comment on above: Performed By: #### L IPID, BMP, LIVER #### [facility] [address] [address] [address] Shama Naylor Cholesterol in LDL [Mass/Vol] 81.8 mg/dL Normal [facility] Comment on above: Performed By: #### L IPID, BMP, LIVER #### [facility] [address] [address] [address] Shama Naylor Cholesterol.total /Cholesterol in HDL [Mass ratio] 2.7 {ratio} Normal [facility] Comment on above: Performed By: #### L IPID, BMP, LIVER #### [facility] [address] [address] [address] Shama Naylor HDL NORMAL > or = 60 mg/dl - LO W CARDIOVASCULAR RISK <40 mg/dl - HIGH CARDIOVASCULAR RISK Normal [facility] Comment on above: Performed By: #### L IPID, BMP, LIVER #### [facility] [address] [address] [address] Shama Naylor LDL CALC NORMAL SEE BELOW Normal [facility] Comment on above: Result Comment: <100 mg/dl OPTIMAL 100 - 129 mg/dl NEAR OR ABOVE OPTIMAL 130 - 159 mg/dl BORDERLINE HIGH 160 - 189 mg/dl HIGH >190 mg/dl VERY HIGH Performed By: #### L IPID, BMP, LIVER #### [facility] [address] [address] [address] Shama Naylor Triglyceride [Mass/Vol] 86 mg/dL Normal <=150 [facility] Comment on above: Performed By: #### L IPID, BMP, LIVER #### [facility] [address] [place] [address] Dr. Shama Naylor VLDL CALC 17.2 mg/dL Normal [facility] Comment on above: Performed By: #### L IPID, BMP, LIVER #### [facility] [address] [place] [address] Dr. Shama Naylor LIVER PROFILEon 07-02-2022 Albumin [Mass/Vol] 3.3 g/dL Critically low 3.4-5.0 [facility] Comment on above: Performed By: #### L IPID, BMP, LIVER #### [facility] [address] [place] [address] Dr. Shama Naylor Albumin/Globulin [Mass ratio] 1.0 {ratio} Normal [facility] Comment on above: Performed By: #### L IPID, BMP, LIVER #### [facility] [address] [place] [address] Dr. Shama Naylor ALP [Catalytic activity/Vol] 61 U/L Normal 46-116 [facility] Comment on above: Performed By: #### L IPID, BMP, LIVER #### [facility] [address] [place] [address] Dr. Shama Naylor ALT [Catalytic activity/Vol] 38 U/L Normal 16-63 [facility] Comment on above: Performed By: #### L IPID, BMP, LIVER #### [facility] [address] [place] [address] Dr. Shama Naylor AST [Catalytic activity/Vol] 14 U/L Critically low 15-37 [facility] Comment on above: Performed By: #### L IPID, BMP, LIVER #### [facility] [address] [place] [address] Dr. Shama Naylor BILI, CONJUGATED 0.1 mg/dL Normal 0.0-0.2 [facility] Comment on above: Performed By: #### L IPID, BMP, LIVER #### [facility] [address] [place] [address] Dr. Shama Naylor Bilirubin [Mass/Vol] 0.4 mg/dL Normal 0.2-1.0 [facility] Comment on above: Performed By: #### L IPID, BMP, LIVER #### [facility] [address] [address] [address] Shama Naylor Globulin (S) [Mass/Vol] 3.3 g/dL Normal [facility] Comment on above: Performed By: #### L IPID, BMP, LIVER #### [facility] [address] [place] [address] Dr. Shama Naylor Protein [Mass/Vol] 6.6 g/dL Normal 6.4-8.2 [facility] Comment on above: Performed By: #### L IPID, BMP, LIVER #### [facility] [address] [address] [address] Shama Naylor PROF CHEM 8 (BAS METB)on Anion gap [Moles/Vol] 9.6 mmol/L Normal [facility] Comment on above: Performed By: #### L IPID, BMP, LIVER #### [facility] [address] [address] [address] Shama Naylor Calcium [Mass/Vol] 8.8 mg/dL Normal 8.5-10.1 [facility] Comment on above: Performed By: #### L IPID, BMP, LIVER #### [facility] [address] [address] [address] Shama Naylor Chloride [Moles/Vol] 107 mmol/L Normal 98-107 [facility] Comment on above: Performed By: #### L IPID, BMP, LIVER #### [facility] [address] [address] [address] Shama Naylor CO2 [Moles/Vol] 28.3 mmol/L Normal 21.0-32.0 [facility] Comment on above: Performed By: #### L IPID, BMP, LIVER #### [facility] [address] [address] [address] Shama Naylor Creatinine [Mass/Vol] 1.03 mg/dL Normal 0.70-1.30 [facility] Comment on above: Performed By: #### L IPID, BMP, LIVER #### [facility] [address] [place] [address] Dr. Shama Naylor EGFR-AF MOLDOVAN >60 Normal >=60 [facility] Comment on above: Performed By: #### L IPID, BMP, LIVER #### [facility] [address] [place] [address] Dr. Shama Naylor EGFR-NON AF MOLDOVAN >60 Normal >=60 [facility] Comment on above: Performed By: #### L IPID, BMP, LIVER #### [facility] [address] [place] [address] Dr. Shama Naylor Glucose [Mass/Vol] 103 mg/dL Normal 74-106 [facility] Comment on above: Performed By: #### L IPID, BMP, LIVER #### [facility] [address] [place] [address] Dr. Shama Naylor Potassium [Moles/Vol] 3.9 mmol/L Normal 3.5-5.1 [facility] Comment on above: Performed By: #### L IPID, BMP, LIVER #### [facility] [address] [place] [address] Dr. Shama Naylor Sodium [Moles/Vol] 141 mmol/L Normal 136-145 [facility] Comment on above: Performed By: #### L IPID, BMP, LIVER #### [facility] [address] [place] [address] Dr. Shama Naylor Urea nitrogen [Mass/Vol] 14.0 mg/dL Normal 7.0-18.0 [facility] Comment on above: Performed By: #### L IPID, BMP, LIVER #### [facility] [address] [place] [address] Dr. Shama Naylor Urea nitrogen/Creatini ne [Mass ratio] 13.6 mg/mg Normal [facility] Comment on above: Performed By: #### L IPID, BMP, LIVER #### [facility] [address] [place] [address] Dr. Shama Naylor Office Visit (Cardiology)on 02-11-2022 Follow-up visit Diagnoses/Problems Assessed Paroxysmal SVT (supraventricular tachycardia) (427.0) (I47.1) Hypertension (401.9) (I10) HLD (hyperlipidemia) (272.4) (E78.5) Morbid obesity with BMI of 40.0-44.9, adult (278.01,V85.41) (E66.01,Z68.41) Former smoker (V15.82) (Z87.891) Quit in 1970s Orders Morbid obesity with BMI of 40.0-44.9, adult Healthy Weight Tips; Status:Complete; Done: [id number] Some eating tips that can help you lose weight.; Status:Complete; Done: 40Snp6084 Paroxysmal SVT (supraventricular tachycardia) IO EKG Electrocardiogram- 12 Lead; Status:Complete; Done: [id number] SocHx: Former smoker Tobacco Use Screening; Status:Complete; Done: 22Vla0006 Patient Instructions Please bring all medicines, vitamins, [...] negative for complaint. Vitals Vital Signs Recorded: [id number] 11:05AM Heart Rate73, Apical Cbemrily265, LUE, Sitting Nbjhqljqu35, LUE, Sitting Height6 ft 2 in Uyjdzn872 lb BMI Lxpcaqmetf48.57 kg/m2 BSA Calculated2.64 Tobacco Useb) No PHQ-2 [...] . Signatures Electronically signed by : Parveen Santo MD; Feb 11 2022 5:56PM EST (Author) Normal [employer] Tobacco Screening.on Adult depression screening assessment No [facility] [address] DO Work Phone: Fall risk assessment a) No falls within the last year [facility] [address] DO Work Phone: Tobacco use status [facility] b) No -[facility] [address] DO Work Phone: Falls Risk Screeningon 08-12 Fall risk assessment a) No falls within the last year [facility] [address] DO Work Phone: Office Visit (Cardiology)on [...] Weight Tips; Status:Complete - Retrospective Authorization; Done: [id number] SocHx: Former smoker Tobacco Use Screening; Status:Complete; Done: 61Mez4637 Unlinked Stop: Aspirin 81 MG Oral Tablet Delayed Release Patient Instructions By signing my name below, I, Shiloh Hernandez LPN, Scribe, attest that this documentation has been prepared under the direction and in the presence of Dr. Parveen Santo MD. All medical record entries made by the Scribe were at my direction and personally dictated [...] negative for complaint. Vitals Vital Signs Recorded: [id number] 01:46PM Heart Rate72, R Radial Rsyxsjkq833, RUE, Sitting Nliijcuiq14, RUE, Sitting Height6 ft 2 in Xwxiwo668 lb BMI Rnuvtrtnts90.67 kg/m2 BSA Calculated2.61 Tobacco Useb) No Fall [...] . Signatures Electronically signed by : Parveen Santo MD; Feb 15 2021 5:53PM EST (Author) Normal [employer] Tobacco Screening.on 021 Fall risk assessment a) No falls within the last year [facility] [address] DO Work Phone: Tobacco use status [facility] b) No -[facility] DO Work Phone: [facility] CARDIAC STRESS/REST INJE CTIONon 11-29-2019 [facility] CARDIAC STRESS/REST INJECTION Patient Name: LUIS LUIS STUDY: MYOCARDIAL PERFUSION STRESS TEST WITH LEXISCAN Performing facility: [facility], [address] [place] [address], [id number] [facility] Provider: Mary Tam RN, [employer] PCP: Dr. Julianna Brewer Supervising provider: Sunday Rai DO, [facility] INDICATION: Chest Pain; HISTORY: Gender: M; Age: 69 y/o ; Height: 187.96 cm; Weight: 599.5261557 kg. High Cholesterol; HTN; Palpitations; Chest Pain; SOB; Quit smoking 40 years ago. COMPARISON: No comparison. ACCESSION NUMBER(S): [id number]; [id number]; [id number] ORDERING CLINICIAN: MARY TAM TECHNIQUE: TWO DAY [...] comparison. Electronically signed by: JAMIL JARRELL MD [facility] Vital Signs Date Time Vital Sign Value Performing Clinician Facility 12-21-2023 08:54-0400 Body height 188 cm Kevin Brewer MD Work Phone: [facility] 12-21-2023 08:54-0400 Body mass index (BMI) [Ratio] 40.19 kg/m2 Kevin Brewer MD Work Phone: [facility] 12-21-2023 08:54-0400 Body temperature 96.6 [degF] Kevin Brewer MD Work Phone: [facility] 12-21-2023 08:54-0400 Body weight 141.98 kg Kevin Brewer MD Work Phone: [facility] 12-21-2023 08:54-0400 Diastolic blood pressure 84 mm[Hg] Kevin Brewer MD Work Phone: [facility] 12-21-2023 08:54-0400 Heart rate 87 /min Kevin Brewer MD Work Phone: [facility] 12-21-2023 08:54-0400 Respiratory rate 20 /min Kevin Brewer MD Work Phone: [facility] 12-21-2023 08:54-0400 SaO2% (BldA) [Mass fraction] 94 % Kevin Brewer MD Work Phone: [facility] 12-21-2023 08:54-0400 Systolic blood pressure 150 mm[Hg] Kevin Brewer MD Work Phone: [facility] 12-02-2023 13:42-0400 Body height 188 cm Naida Gillbinh [employer]ICER Work Phone: [facility] 12-02-2023 13:42-0400 Body mass index (BMI) [Ratio] 40.06 kg/m2 Naida Valeriemor [employer]OUNT OFFICER Work Phone: [facility] 12-02-2023 13:42-0400 Body weight 141.52 kg Naida Gillmor [employer]ERCIAL ACCOUNT OFFICER Work Phone: [facility] 12-02-2023 13:42-0400 Diastolic blood pressure 92 mm[Hg] Naida Gillmor [employer]ERCIAL ACCOUNT OFFICER Work Phone: [facility] 12-02-2023 13:42-0400 Heart rate 75 /min Naida Valeriemor COMMERCIAL ACCOUNT OFFICER Work Phone: [facility] 12-02-2023 13:42-0400 Systolic blood pressure 148 mm[Hg] Naida Gillmor [employer]ERCIAL ACCOUNT OFFICER Work Phone: [facility] 04-07-2023 13:06-0500 Body temperature 97.9 [degF] SARAVANAN Butler MD Work Phone: [facility] 04-07-2023 13:06-0500 Body weight 149.2 kg SARAVANAN Butler MD Work Phone: [facility] 04-07-2023 13:06-0500 Diastolic blood pressure 83 mm[Hg] SARAVANAN Butler MD Work Phone: [facility] 04-07-2023 13:06-0500 Heart rate 80 /min SARAVANAN Butler MD Work Phone: [facility] 04-07-2023 13:06-0500 Respiratory rate 16 /min SARAVANAN Butler MD Work Phone: [facility] 04-07-2023 13:06-0500 SaO2% (BldA) [Mass fraction] 96 % SARAVNAAN Butler MD Work Phone: [facility] 04-07-2023 13:06-0500 Systolic blood pressure 139 mm[Hg] SARAVANAN Butler MD Work Phone: [facility] 02-10-2023 11:10-0500 Body height 188 cm Parveen Santo MD Work Phone: [facility] 02-10-2023 11:10-0500 Body mass index (BMI) [Ratio] 41.6 kg/m2 Parveen Santo MD Work Phone: [facility] 02-10-2023 11:10-0500 Body weight 146.97 kg Pavreen Santo MD Work Phone: [facility] 02-10-2023 11:10-0500 Diastolic blood pressure 84 mm[Hg] Parveen Santo MD Work Phone: [facility] 02-10-2023 11:10-0500 Heart rate 67 /min Parveen Santo MD Work Phone: [facility] 02-10-2023 11:10-0500 Systolic blood pressure 132 mm[Hg] Parveen Santo MD Work Phone: [facility] 09-30-2022 13:55-0400 Body temperature 96.69 [degF] SARAVANAN Butler MD Work Phone: [facility] 09-30-2022 13:55-0400 Body weight 144.97 kg SARAVANAN Butler MD Work Phone: [facility] 09-30-2022 13:55-0400 Diastolic blood pressure 85 mm[Hg] SARAVANAN Butler MD Work Phone: [facility] 09-30-2022 13:55-0400 Heart rate 92 /min SARAVANAN Butler MD Work Phone: [facility] 09-30-2022 13:55-0400 Respiratory rate 18 /min SARAVANAN Butler MD Work Phone: [facility] 09-30-2022 13:55-0400 SaO2% (BldA) [Mass fraction] 94 % SARAVANAN Butler MD Work Phone: [facility] 09-30-2022 13:55-0400 Systolic blood pressure 143 mm[Hg] SARAVANAN Butler MD Work Phone: [facility] 09-08-2022 10:50-0400 Blood Pressure Location Yin HAWK [facility] 09-08-2022 10:50-0400 Diastolic blood pressure 73 mm[Hg] Yin HAWK [facility] 09-08-2022 10:50-0400 Heart rate 72 /min Yin HAWK [facility] 09-08-2022 10:50-0400 Respiratory rate 16 /min Yinlucy HAWK [facility] 09-08-2022 10:50-0400 Systolic blood pressure 132 mm[Hg] Yinlucy HAWK [facility] 04-01-2022 14:41-0500 Body temperature 97.2 [degF] SARAVANAN Butler MD Work Phone: [facility] 04-01-2022 14:41-0500 Body weight 142.79 kg SARAVANAN Butler MD Work Phone: [facility] 04-01-2022 14:41-0500 Diastolic blood pressure 90 mm[Hg] SARAVANAN Butler MD Work Phone: [facility] 04-01-2022 14:41-0500 Heart rate 82 /min SARAVANAN Butler MD Work Phone: [facility] 04-01-2022 14:41-0500 Respiratory rate 18 /min SARAVANAN Butler MD Work Phone: [facility] 04-01-2022 14:41-0500 SaO2% (BldA) [Mass fraction] 98 % SARAVANAN Butler MD Work Phone: [facility] 04-01-2022 14:41-0500 Systolic blood pressure 159 mm[Hg] SARAVANAN Butler MD Work Phone: [facility] 03-21-2022 11:25-0500 Blood Pressure Location Yinlucy HAWK [facility] 03-21-2022 11:25-0500 Diastolic blood pressure 80 mm[Hg] Yin HAWK [facility] 03-21-2022 11:25-0500 Heart rate 76 /min Yinlucy HAWK [facility] 03-21-2022 11:25-0500 Respiratory rate 16 /min Yin HAWK [facility] 03-21-2022 11:25-0500 Systolic blood pressure 138 mm[Hg] Yinlucy HAWK [facility] 02-11-2022 11:05-0500 Body height 187.96 cm Kevin Brewer Work Phone: [facility] [address] DO Work Phone: 02-11-2022 11:05-0500 Body mass index (BMI) [Ratio] 40.57 kg/m2 Kevin Brewer Work Phone: [facility] [facility] DO Work Phone: 02-11-2022 11:05-0500 Body surface area Derived from formula 2.64 m2 Kevin A Naderer Work Phone: [facility] DO Work Phone: 02-11-2022 11:05-0500 Body weight 143.34 kg Kevin Scott Naderer Work Phone: [facility] [address] DO Work Phone: 02-11-2022 11:05-0500 Diastolic blood pressure 78 mm[Hg] Kevin Scott Naderer Work Phone: [facility] [address] DO Work Phone: 02-11-2022 11:05-0500 Heart rate 73 /min Kevin Scott Naderer Work Phone: [facility] DO Work Phone: 02-11-2022 11:05-0500 Systolic blood pressure 132 mm[Hg] Kevin Lovelaceerer Work Phone: [facility] [address] DO Work Phone: 09-30-2021 10:54-0400 Blood Pressure Location Yinlucy HAWK [facility] 09-30-2021 10:54-0400 Diastolic blood pressure 84 mm[Hg] Yin HAWK [facility] 09-30-2021 10:54-0400 Heart rate 75 /min Yin HAWK [facility] 09-30-2021 10:54-0400 Respiratory rate 16 /min Yin HAWK [facility] 09-30-2021 10:54-0400 Systolic blood pressure 136 mm[Hg] Yin HAWK [facility] 08-14-2021 09:47-0400 Body temperature 96.69 [degF] SARAVANAN Butler MD Work Phone: [facility] 08-14-2021 09:47-0400 Body weight 141.98 kg SARAVANAN Butler MD Work Phone: [facility] 08-14-2021 09:47-0400 Diastolic blood pressure 82 mm[Hg] SARAVANAN Butler MD Work Phone: [facility] 08-14-2021 09:47-0400 Heart rate 82 /min SARAVANAN Butler MD Work Phone: [facility] 08-14-2021 09:47-0400 Respiratory rate 20 /min SARAVANAN Butler MD Work Phone: [facility] 08-14-2021 09:47-0400 SaO2% (BldA) [Mass fraction] 94 % SARAVANAN Butler MD Work Phone: [facility] 08-14-2021 09:47-0400 Systolic blood pressure 131 mm[Hg] SARAVANAN Butler MD Work Phone: [facility] 08-12-2021 10:15-0400 Body height 187.96 cm Kevin Brewer Work Phone: [facility] DO Work Phone: 08-12-2021 10:15-0400 Body mass index (BMI) [Ratio] 39.93 kg/m2 Kevin Brewer Work Phone: [facility] [address] DO Work Phone: 08-12-2021 10:15-0400 Body surface area Derived from formula 2.62 m2 Kevin Brewer Work Phone: [facility] [address] DO Work Phone: 08-12-2021 10:15-0400 Body weight 141.07 kg Kevin A Naderer Work Phone: [facility] DO Work Phone: 08-12-2021 10:15-0400 Diastolic blood pressure 80 mm[Hg] Kevin Scott Naderer Work Phone: [facility] [address] DO Work Phone: 08-12-2021 10:15-0400 Heart rate 69 /min Kevin Scott Naderer Work Phone: [facility] DO Work Phone: 08-12-2021 10:15-0400 Systolic blood pressure 130 mm[Hg] Kevin Scott Naderer Work Phone: [facility] [address] DO Work Phone: 08-09-2021 09:42-0400 Blood Pressure Location Yin HAWK [facility] 08-09-2021 09:42-0400 Diastolic blood pressure 80 mm[Hg] Yin HAWK [facility] 08-09-2021 09:42-0400 Heart rate 75 /min Yin HAWK [facility] 08-09-2021 09:42-0400 Respiratory rate 16 /min Yin HAWK [facility] 08-09-2021 09:42-0400 Systolic blood pressure 134 mm[Hg] [facility] HAWK [facility] 02-15-2021 13:46-0500 Body height 187.96 cm Kevin Lovelacefabianr Work Phone: [facility] 250 DO Work Phone: 02-15-2021 13:46-0500 Body mass index (BMI) [Ratio] 39.67 kg/m2 Kevin Hollinsr Work Phone: [facility] 250 DO Work Phone: 02-15-2021 13:46-0500 Body surface area Derived from formula 2.61 m2 Kevin Brewer Work Phone: [facility] 250 DO Work Phone: 02-15-2021 13:46-0500 Body weight 140.16 kg Kevin Brewer Work Phone: [facility] 250 DO Work Phone: 02-15-2021 13:46-0500 Diastolic blood pressure 80 mm[Hg] Kevin Brewer Work Phone: [facility] 250 DO Work Phone: 02-15-2021 13:46-0500 Heart rate 72 /min Kevin Brewer Work Phone: [facility] 250 DO Work Phone: 02-15-2021 13:46-0500 Systolic blood pressure 118 mm[Hg] Kevin Brewer Work Phone: [facility] 250 DO Work Phone: Encounters Encounter Date Encounter Type Care Provider Facility Start: 05-13-2024 ambulatory Yin Cain ty:UCHE Soria Start: 12-21-2023 End: 12-21-2023 Bamboo flowsheet Kevin Brewer MD Work Phone: [facility] Start: 12-21-2023 End: 12-21-2023 Bamboo flowsheet Kevin Brewer MD Work Phone: [facility] Start: 12-21-2023 End: 12-21-2023 ambulatory KEVIN BREWER Not Available Start: 12-21-2023 End: 12-21-2023 Office outpatient visit 25 minutes Kevin Brewer MD Work Phone: [facility] Comment on above: Essential hypertensi on, benign (CMS/HCC) (Primary Dx); Lumbar radiculopathy; Chronic right-sided low back pain with right-sided sciatica; Bilateral leg edema; SVT (supraventricular tachycardia) (CMS/HCC) Start: 12-03-2023 End: 12-03-2023 Clinisync Result Encounter Generic External Data Provider [facility] External Department Unsolicited Start: 12-03-2023 End: 12-03-2023 Clinisync Result Encounter Generic External Data Provider [facility] External Department Unsolicited Start: 12-02-2023 End: 12-02-2023 Bamboo flowsheet Naida Hobson COMM[employer]CIAL ACCOUNT OFFICER Work Phone: [facility] Start: 12-02-2023 End: 12-02-2023 Bamboo flowsheet Naida Hobson COMMERCIAL ACCOUNT OFFICER Work Phone: [facility] Start: 12-02-2023 End: 12-02-2023 ambulatory NAIDA HOBSON Not Available Start: 12-02-2023 End: 12-02-2023 Office outpatient visit 25 minutes Naida Hobson COMMERCIAL ACCOUNT OFFICER Work Phone: [facility] Comment on above: Morbid obesity due t o excess calories (CMS/HCC) (Primary Dx); RENAE on CPAP; Hypoxia; Snoring; Daytime hypersomnolence Start: 11-17-2023 End: 11-17-2023 ambulatory Franchesca [facility] Work Phone: Start: 11-17-2023 End: 11-17-2023 Departed Referred DO Franchesca N[place] Work Phone: [facility] Start: 10-28-2023 End: 10-28-2023 ambulatory FRANCHESCA [place] Not Available Start: 07-13-2023 End: 07-13-2023 ambulatory FRANCHESCA [place] Not Available Start: 06-29-2023 End: 06-29-2023 ambulatory KEVIN LOVELACEFABIANAmanda Not Available Start: 05-11-2023 End: 05-12-2023 ambulatory Yin HAWK Facility:[facility] Start: 05-11-2023 End: 05-11-2023 Patient encounter procedure Yin HAWK [facility] Start: 04-07-2023 End: 04-07-2023 ambulatory Demond BUTLER Facility:[facility] Start: 04-07-2023 End: 04-07-2023 Patient encounter procedure Demond Butler MD Work Phone: Radiation Oncology Comment on above: Malignant neoplasm o f prostate (HCC) (Primary Dx) Start: 02-10-2023 End: 02-10-2023 [facility] Start: 02-10-2023 End: 02-10-2023 Office outpatient visit 25 minutes Parveen Santo MD Work Phone: [facility] Comment on above: Paroxysmal SVT (supr aventricular tachycardia) (Primary Dx); Primary hypertension; Mixed hyperlipidemia; Morbid obesity with BMI of 40.0-44.9, adult (CMS/HCC); Bifascicular block Start: 09-30-2022 End: 09-30-2022 ambulatory KEVIN BREWER Facility:[facility] Start: 09-30-2022 End: 09-30-2022 Patient encounter procedure Demond Butler MD Work Phone: Radiation Oncology Comment on above: Malignant neoplasm o f prostate (HCC) (Primary Dx) Start: 09-08-2022 End: 09-09-2022 ambulatory Yin HAWK Facility:[facility] Start: 09-08-2022 End: 09-08-2022 Patient encounter procedure Yin HAWK [facility] Start: 07-25-2022 Rx Renewal Kevin Brewer Work Phone: [facility] 250 DO Work Phone: Start: 07-02-2022 End: 07-03-[address] KEVIN BREWER Facility:[facility] Start: 04-07-2022 Rx Renewal [facility] 250 [facility] Work Phone: Start: 04-01-2022 End: 04-01-2022 ambulatory Yancy Oneill APRN.STITCH CLEANER Work Phone: Hematology/Oncology Comment on above: Prostate cancer (HCC ) Start: 04-01-2022 End: 04-01-2022 Patient encounter procedure Yancy Oneill APRN.STITCH CLEANER Work Phone: [facility] Comment on above: Malignant neoplasm o f prostate (HCC) (Primary Dx) Start: 03-21-2022 End: 03-21-2022 Patient encounter procedure Yin HAWK [facility] Start: 03-11-2022 End: 03-12-[address] KEVIN BREWER Facility:[facility] Start: 02-11-2022 ambulatory Parveen Snato II Facility: Start: 02-11-2022 Office outpatient vi sit 15 minutes Kevin Brewer Work Phone: [facility] 250 DO Work Phone: Start: 02-05-2022 Telephone encounter G Chavez Butler MD Work Phone: Radiation Oncology Comment on above: Future Appointment Start: 01-14-2022 Rx Renewal Kevin Brewer Work Phone: [facility] 250 DO Work Phone: Start: 09-30-2021 End: 09-30-2021 Patient encounter procedure Yin HAWK [facility] Start: 09-23-2021 End: 09-24-[address] KEVIN BREWER Facility: Start: 08-14-2021 End: 08-14-2021 Patient encounter procedure Demond Butler MD Work Phone: Radiation Oncology Comment on above: Malignant neoplasm o f prostate (HCC) (Primary Dx) Start: 08-12-2021 Patient encounter procedure Kevin Brewer Work Phone: [facility] 250 DO Work Phone: Start: 08-12-2021 ambulatory Parveen Santo II Facility: Start: 08-09-2021 End: 08-09-2021 Patient encounter procedure Yin HAWK [facility] Start: 08-05-2021 Telephone encounter Demond Butler MD Work Phone: Radiation Oncology Comment on above: FYI-No Action Needed ; Covid19 Concern Start: 07-25-2021 Patient encounter procedure Demond Butler MD Work Phone: [facility] Start: 07-25-2021 Radiation Oncology Note Demond Butler MD Work Phone: Radiation Oncology Comment on above: Simulation Note Start: 07-25-2021 End: 07-25-2021 Subsequent hospital visit by physician Pet Ct Scan [facility] Work Phone: Radiology Pet CT Start: 07-24-2021 AUDIT Kevin Brewer Work Phone: [facility] 250 DO Work Phone: Start: 07-16-2021 End: 07-17-[address] KEVIN BREWER Facility:[facility] Start: 07-04-2021 End: 07-04-2021 Patient encounter procedure Abdulaziz DAWSON [facility] Start: 06-27-2021 End: 06-28-2021 Patient encounter procedure Demond Butler MD Work Phone: Radiation Oncology Comment on above: Malignant neoplasm o f prostate (HCC) (Primary Dx) Start: 06-11-2021 End: 06-11-2021 Patient encounter procedure Demond Butler MD Work Phone: Radiation Oncology Comment on above: Malignant neoplasm o f prostate (HCC) (Primary Dx) Start: 06-11-2021 Radiation Oncology Note G Kedar Butler MD Work Phone: Radiation Oncology Comment on above: Simulation Note Start: 04-26-2021 Rx Renewal Kevin Brewer Work Phone: [facility] 250 DO Work Phone: Start: 04-09-2021 End: 04-09-2021 Subsequent hospital visit by physician Demond Butler MD Work Phone: Radiology Pet CT Start: 02-15-2021 [facility] Start: 02-15-2021 Office outpatient vi sit 15 minutes Kevin Brewer Work Phone: [facility] 250 DO Work Phone: Start: 01-22-2021 Rx Renewal Kevin Brewer Work Phone: [facility] 250 DO Work Phone: Procedures Date Procedure Procedure Detail Performing Clinician Start: 12-03-2023 MHPT PSA, DIAGNOSTIC Ge neric External Data Provider Start: 11-17-2023 Colonoscopy Naida smith COMMERCIAL ACCOUNT OFFICER Work Phone: Start: 03-31-2023 PSA screening [facility] Provi kilo Start: 02-10-2023 ECG 12-LEAD PARVEEN PATEL Start: 02-10-2023 Ecg routine ecg w/le ast 12 lds w/i&r Parveen Santo MD Work Phone: Start: 08-29-2022 PSA screening [facility] Provi kilo Start: 03-11-2022 End: 03-11-2022 PSA screening [facility] Provider Comment on above: Performed By: #### P SAD #### [facility] [address] [address] [address] Shama Naylor Start: 09-23-[address] KEVIN BROOKS Comment on above: Performed By: #### P SAD #### [facility] [address] [place] [address] Dr. Shama Naylor Start: 07-16-2021 End: 07-16-2021 PSA screening [facility] Provider Comment on above: Performed By: #### P SAD #### [facility] [address] [place] [address] Dr. Shama Naylor Start: 06-27-2021 Brachytherapy Yin W ATEBONIFACIO Start: 03-14-2021 Transrectal biopsy o f prostate Abdulaziz DAWSON Arthroplasty of wrist Abdulaziz DAWSON Colonoscopy Abdulaziz DAWSON Surgical repair of u pper extremity Kevin A Naderer Work Phone: Total colonoscopy Kevin A Nad erer Work Phone: Plan of Treatment Date Care Activity Detail Author Start: 11-16-2033 Screening for malign ant neoplasm of colon [facility] Start: 2025 RSV Vaccine (1 - 1-d ose 75+ series) RSV Vaccine (1 - 1-dose 75+ series) [facility] Start: 12-20-2024 Medicare Annual Well ness (AWV) Medicare Annual Wellness (AWV) [facility] Start: 04-05-2024 End: 04-05-2024 Patient encounter procedure 04/05/2024 1:15 PM EST Office Visit Radiation Oncology [address] [place] [address] [place] [address] Demond Butler MD [address] [place] [address] 1 yr rv Radiation Oncology Comment on above: 1 yr rv Start: 03-23-2024 End: 03-23-2024 Patient encounter procedure 03/23/2024 9:00 AM EST Office Visit [facility] [address] [place] [id number] Kevin Brewer MD [address] [place] [address] ANNA SEQUEIRA Start: 03-08-2024 End: 03-08-2024 Patient encounter procedure 03/08/2024 9:00 AM EST Office Visit [facility] [address] [facility] [address] [place] [id number] Parveen Santo MD [address] [facility] [address] [place] [address] [facility] Start: 12-21-2023 End: 12-20-2024 MR Lumbar spine WO contrast MR lumbar spine wo contrast Imaging Routine Lumbar radiculopathy Chronic right-sided low back pain with right-sided sciatica Expected: 12/21/2023, Expires: 12/20/2024 [facility] Work Phone: Comment on above: Expected: 12/21/2023 , Expires: 12/20/2024 Start: 12-21-2023 End: 12-21-2023 Patient encounter procedure 12/21/2023 8:45 AM EDT Office Visit [facility] [address] [place] [address] Kevin Brewer MD [address] [place] [address] ANNA SEQUEIRA Start: 11-01-2023 Covid-19 Vaccine ( season) Covid-19 Vaccine () [facility] Start: 11-01-2023 Influenza vaccination Influenza Vacc ine (#1) [facility] Start: 04-07-2023 End: 07-07-2023 Prostate specific Ag [Mass/volume] in Serum or Plasma PSA/PROSTSPECAG DIAG Lab Routine Malignant neoplasm of prostate (HCC) Expected: 04/07/2023, Expires: 07/07/2023 [facility] Work Phone: Comment on above: Expected: 04/07/2023 , Expires: 07/07/2023 Start: 04-02-2023 End: 06-02-2023 Prostate specific Ag [Mass/volume] in Serum or Plasma PSA/PROSTSPECAG DIAG Lab Routine Malignant neoplasm of prostate (HCC) Expected: 04/02/2023 (Approximate), Expires: 06/02/2023 [facility] Work Phone: Comment on above: Expected: 04/02/2023 (Approximate), Expires: 06/02/2023 Start: 03-02-2023 Advance Directive Discussion Advance Directive Discussion [facility] Start: 03-02-2023 Depression Assessment [facility] Start: 02-10-2023 FUV, Provider: Parveen Santo, Status: Navarro, Time: 11:00 AM FUV, Provider: Parveen Santo, Status: Pen, Time: 11:[address] Work Phone: Start: 10-31-2022 Covid-19 Vaccine () Covid-19 Vaccine () [facility] Start: 10-31-2022 Influenza vaccination [facility] Start: 03-02-2022 ADVANCE DIRECTIVE DISCUSSION ADVANCE DIRECTIVE DISCUSSION [facility] Start: 03-02-2022 DEPRESSION ASSESSMENT DEPRESSION ASS [facility] Start: 02-11-2022 FUV, Provider: Parveen Santo, Status: Navarro, Time: 10:50 AM FUV, Provider: Parveen Santo, Status: Pen, Time: 10:50 AM [facility] [employer] 250 DO Work Phone: Start: 10-31-2021 Influenza vaccination [facility] Start: 04-15-2021 COVID-19 VACCINE (4 - Booster for Pfizer series) COVID-19 VACCINE (4 - Booster for Pfizer series) [facility] Start: 03-02-2021 ADVANCE DIRECTIVE DISCUSSION ADVANCE DIRECTIVE DISCUSSION [facility] Start: 03-02-2021 DEPRESSION ASSESSMENT DEPRESSION ASS ESSMENT [facility] Start: 02-15-2021 FUV, Provider: Parveen Santo, Status: Pen, Time: 1:30 PM FUV, Provider: Parveen Santo, Status: Navarro, Time: 1:30 PM [facility] [employer] 250 DO Work Phone: Start: 02-07-2021 COVID-19 VACCINE (4 - Booster for Pfizer series) COVID-19 VACCINE (4 - Booster for Pfizer series) [facility] Start: 02-07-2021 COVID-19 VACCINE (4 - Pfizer series) COVID-19 VACCINE (4 - Pfizer series) [facility] Start: 07-02-2015 Abdominal aortic aneurysm screening Abdominal Aortic Aneurysm (AAA) Screening [facility] Start: 07-02-2015 Pneumococcal Vaccine : 65+ (1 of 1 - PCV) Pneumococcal Vaccine: 65+ (1 of 1 - PCV) [facility] Start: 07-02-2015 Pneumococcal Vaccine : 65+ Years (1 - PCV) Pneumococcal Vaccine: 65+ Years (1 - PCV) [facility] Start: 07-02-2015 Pneumococcal Vaccine : 65+ Years (1 of 1 - PCV) Pneumococcal Vaccine: 65+ Years (1 of 1 - PCV) [facility] Start: 07-02-2015 PNEUMOCOCCAL: 65+ (1 - PCV) PNEUMOCOCCAL: 65+ (1 - PCV) [facility] Start: 07-02-2015 PNEUMOVAX AGE 65 AND OVER WITH 5YR LOOKBACK (#1) PNEUMOVAX AGE 65 AND OVER WITH 5YR LOOKBACK (#1) [facility] Start: 2010 RSV Vaccine (1 - 1-d ose 60+ series) RSV Vaccine (1 - 1-dose 60+ series) [facility] Start: 2000 SHINGRIX VACCINE (1 of 2) SHINGRIX VACCINE (1 of 2) [facility] Start: 2000 Zoster Vaccines (1 of 2) Zoste r Vaccines (1 of 2) [facility] Start: 07-02-1995 COLOGUARD (FIT-DNA) COLOGUARD (FIT-D NA) [facility] Start: 07-02-1995 Colonoscopy COLONOSCOPY [facility] Start: 07-02-1995 COLORECTAL CANCER SCREENING COLORECTAL CANCER SCREENING [facility] Start: 07-02-[address] COLONOGRAPHY [facility] Start: 07-02-1995 [facility]ET[facility]CREEN [facility] Start: 07-02-1995 Diabetes Screening Diabetes Screenin g [facility] Start: 07-02-1995 FECAL OCCULT BLOOD FECAL OCCULT BLOO D [facility] Start: 07-02-1995 Screening for malign ant neoplasm of colon [facility] Start: 07-02-1995 SIGMOIDOSCOPY SIGMOIDOSCOPY [facility] Start: 1985 Lipid panel Lipid Screening [facility] Start: 1985 LIPID SCREEN LIPID SCREEN [facility] Start: 1972 DTaP/Tdap/Td Vaccine s (1 - Tdap) DTaP/Tdap/Td Vaccines (1 - Tdap) [facility] Start: 1969 SHINGRIX VACCINE (1 of 2) SHINGRIX VACCINE (1 of 2) [facility] Start: 1969 Urine microalbumin profile [facility] Start: 1968 Anxiety Screening Anxiety Screening [facility] Start: 1968 Depression Screening Depression Scre ening [facility] Start: 1968 Diabetes mellitus screening Diabetes Screening [facility] Start: 1968 HEPATITIS C SCREENING HEPATITIS C [facility] Start: 1968 Hepatitis C screening Hepatitis C [facility] Start: 1962 Adult depression screening assessment DEPRESSION SCREENING [facility] Start: 1956 PNEUMOCOCCAL: 65+ (1 - PCV) PNEUMOCOCCAL: 65+ (1 - PCV) [facility] Start: 1950 ABDOMINAL AORTIC ANEURYSM SCREENING ABDOMINAL AORTIC ANEURYSM SCREENING [facility] Start: 1950 Abdominal aortic aneurysm screening Abdominal Aortic Aneurysm Screening [facility] Start: 1950 Lipid panel Lipid Panel [facility] Start: 1950 Medicare Annual Well ness (AWV) Medicare Annual Wellness (AWV) [facility] Start: 1950 Medicare Annual Well ness Visit Medicare Annual Wellness Visit (AWV) [facility] Start: 1950 Screening for malign ant neoplasm of colon [facility] Immunizations Immunization Date Immunization Notes Care Provider Concha lopez 11-28-2021 Fluzone High-Dose Quadrivalent 0.7 ML Intramuscular Suspension Prefilled Syringe Kevin Hollinsr Work Phone: [facility] 250 DO Work Phone: 11-28-2021 influenza virus vaccine, unspecified formulation Yin CARINE [facility] 11-28-2021 influenza, high dose seasonal, preservative-free Parveen Santo MD Work Phone: [facility] Work Phone: 12-13-2020 Pfizer-BioNTech COVID-19 Vacc 30 MCG/0.3ML Intramuscular Suspension Kevin A Naderer Work Phone: [facility] 05-19-2020 Pfizer-BioNTech COVID-19 Vacc 30 MCG/0.3ML Intramuscular Suspension Kevin A Naderer Work Phone: [facility] 04-28-2020 Pfizer-BioNTech COVID-19 Vacc 30 MCG/0.3ML Intramuscular Suspension Kevin A Naderer Work Phone: [facility] 03-02-2020 SARS-CoV-2 (COVID-19 ) mRNA BNT-162b2 renate DAWSON [facility] Comment on above: Result Comment: pt i s fully vaccinated and has received the booster but does not remember the dates 12-14-2019 influenza virus vaccine, unspecified formulation Yin HAWK [facility] 12-14-2019 influenza, injectabl e, quadrivalent, preservative free Kevin A Naderer Work Phone: [facility] [address] DO Work Phone: 12-01-2019 influenza virus vaccine, unspecified formulation Yin HAWK [facility] 12-01-2019 influenza, seasonal, injectable Kevin A Naderer Work Phone: [facility] [address] DO Work Phone: 02-09-2012 influenza virus vaccine, unspecified formulation Yin HAWK [facility] 02-09-2012 influenza, seasonal, injectable Kevin A Naderer Work Phone: [facility] [address] DO Work Phone: Payers Date Payer Category Payer Self-pay [id number] 2020 Private Health Insurance [employer] A ETNA MEDICARE SUPPLEMENT [id number] 2020-Present [phone] [address] [address] [place] [address] Indemnity [id number] 2020 Private Health Insurance [id number] 2015 Medicare MEDICARE MEDICAR E A AND B [id number] 2015-Present [phone] [address] [address] [place] [address] Medicare [id number] 2015 Medicare [id number] 1959 Medicare [id number] 1959 Private Health Insurance [facility] [id number] 1950 Unknown [id number] [id number]. 356 1950 Unknown [id number] 2.16.840.1.166342.3.579.2. 356 1950 Unknown [id number] 2.16.840.1.115517.3.579.2. 356 1950 Unknown [id number] 2.16.840.1.585738.3.579.2. 593 1950 Unknown [id number] 2.16.840.1.087378.3.579.2. 593 1950 Unknown [id number] 2.16.840.1.455553.3.579.2. 593 1950 Unknown [id number] 2.16.840.1.811120.3.579.2. 593 1950 Unknown [id number] 2.16.840.1.610097.3.579.2. 1244 1950 Unknown [id number] 2.16.840.1.158109.3.579.2. 727 1950 Unknown [id number] 2.16.840.1.309090.3.579.2. 727 1950 Unknown [id number] 2.16.840.1.039747.3.579.2. 727 1950 Unknown [id number] 2.16.840.1.694381.3.579.2. 1259 1950 Unknown [id number] 2.16.840.1.859929.3.579.2. 1259 1950 Unknown [id number] 2.16.840.1.604624.3.579.2. 1259 1950 Unknown [id number] 2.16.840.1.721111.3.579.2. 1259 1950 Unknown [id number] 2.16.840.1.034119.3.579.2. 1258 Unknown Unknown [facility] [id number] Unknown [id number]. 531 Social History Date Type Detail Facility Start: 05-20-2021 End: 06-23-2023 Alcohol use Alcohol use [facility] Comment on above: 4 8 oz cups of coffe e/occasional decaf coffee; Quit in 1970s; Start: 04-03-2021 End: 12-02-2023 Tobacco smoking status NHIS Ex-smoker [facility] End: 04-03-1981 History of tobacco use Current smoker [facility] End: 04-03-1981 History of tobacco use Pipe Smoker [facility] End: 04-03-1981 History of tobacco use Cigar Smoker [facility] Start: 04-03-2021 End: 12-02-2023 Tobacco use and exposure Smokeless tobacco non-user [facility] Start: 05-20-2021 End: 12-21-2023 Alcohol intake Current drinker of alcohol (finding) [facility] Start: 04-03-2021 History SDOH Alcohol Comment 2-3 times/wk [facility] Start: 1950 Sex Assigned At Not on file [facility] Start: 03-10-2021 End: 02-10-2023 Exposure to SARS-CoV-2 (event) Not sure [facility] Start: 05-20-2021 End: 06-23-2023 Sex Assigned At Male [facility] Tobacco smoking status No Smokin g Status Entered [facility] Start: 03-21-2022 Tobacco smoking status Never s moked tobacco (finding) [facility] Start: 05-11-2023 Tobacco smoking status Never [facility] End: 03-02-1969 History of tobacco use Cigarette Smoker [facility] Work Phone: Start: 02-06-2023 Alcohol Comment [facility] Work Phone: Start: 1950 [facility] Ass[facility] [facility] Do you belong to any clubs or organizations such as voodoo groups, unions, fraternal or athletic groups, or school groups? Yes [facility] Are you now , , , , never or living with a partner? [facility] How often to you hav e a drink containing alcohol? 2-3 time sa week [facility] How many standard dr inks containing alcohol do you have on a typical day? 1 or 2 [facility] How often do you hav e 6 or more drinks on 1 occasion? Less than monthly [facility] Do you feel stress - tense, restless, nervous, or anxious, or unable to sleep at night because your mind is troubled all the time - these days [OSQ] Not at all [facility] (I/We) worried wheth er (my/our) food would run out before (I/we) got money to buy more. Never true [facility] In the past 12 month s, was there a time when you were not able to pay the mortgage or rent on time? No [facility] Start: 07-13-2023 Tobacco Comment Smoked pipe a short time over 40 years ago. [facility] Start: 07-13-2023 Alcohol Comment Typically have drinks with dinner. [facility] Functional Status Date Assessment Result Facility 05-11-2023 Functional Status N/A [facility] 09-08-2022 Functional Status N/A [facility] 03-21-2022 Functional Status N/A [facility] 09-30-2021 Functional Status N/A [facility] Clinical Notes 06-11-2021 to 12-21-2023 Kevin Brewer MD - 12/21/2023 9:34 AM Sumi Brewer MD - 12/21/2023 9:34 AM Sumi Brewer MD - 12/21/2023 9:34 AM Sumi Brewer MD - 12/21/2023 9:34 AM EDTPatient InstructionsLaboratory Note Date & Type Note Facility 12-21-2023 History of Present illness Narrative Associated Problem(s): Lumbar radiculopathy Increased symptoms and abnormal exam. Check MRI. Associated Problem(s): Essential hypertension, benign (CMS/HCC) BP elevated but previously controlled and monitor PRN. Associated Problem(s): Chronic low back pain with right-sided sciatica Increased pain and radicular symptoms. Abnormal exam on left leg. Check MRI and start PT. Use mobic PRN. Associated Problem(s): Bilateral leg edema Edema stable and continue lasix. Elevate legs PRN. Associated Problem(s): SVT (supraventricular tachycardia) (CMS/HCC) Occasional palpitations and continue medication. Follow with cardiology. Images from the original note were not included. Subjective Patient ID: Luis Luis is a 73 y.o. male who presents for Follow-up (6 m/Sciatic pain). Follow up HTN, SVT, and edema. Checking BP PRN and typically controlled. BP elevated today but increased pain. Taking medication daily and tolerating without side effects. SVT stable. Occasional palpitations and heart racing but only lasts few seconds. Not lightheaded or dizzy. Following with cardiology and no medication changes. Edema controlled with medication. Mild swelling at end of day and if on feet a lot. Edema improved in am and with elevation. C/o increased pain in low back and radiates down right leg. Weakness in leg and hard to lift leg. Pain in left knee. Seen by neurology for RENAE and did not feel vibration on left ankle but normal on right. At times feels like leg will give out. Going to chiropractor for back pain and mild relief. No imaging for years. Review of Systems Constitutional: Negative for fatigue. Respiratory: Negative for cough, shortness of breath and wheezing. Cardiovascular: Negative for chest pain and palpitations. Gastrointestinal: Negative for abdominal pain, diarrhea, nausea and vomiting. Genitourinary: Negative for dysuria. Objective Physical Exam Constitutional: General: He is not in acute distress. Appearance: Normal appearance. HENT: Head: Normocephalic. Right Ear: Tympanic membrane and ear canal normal. Left Ear: Tympanic membrane and ear canal normal. Eyes: Extraocular Movements: Extraocular movements intact. Pupils: Pupils are equal, round, and reactive to light. Cardiovascular: Rate and Rhythm: Normal rate and regular rhythm. Heart sounds: No murmur heard. No friction rub. No gallop. Pulmonary: Breath sounds: Normal breath sounds. No wheezing, rhonchi or rales. Abdominal: General: Bowel sounds are normal. There is no distension. Palpations: Abdomen is soft. Tenderness: There is no abdominal tenderness. There is no guarding or rebound. Musculoskeletal: Left lower leg: No edema. Neurological: Mental Status: He is alert. Assessment/Plan Problem List Items Addressed This Visit Essential hypertension, benign (CMS/HCC) - Primary BP elevated but previously controlled and monitor PRN. SVT (supraventricular tachycardia) (CMS/HCC) Occasional palpitations and continue medication. Follow with cardiology. Bilateral leg edema Edema stable and continue lasix. Elevate legs PRN. Lumbar radiculopathy Increased symptoms and abnormal exam. Check MRI. Relevant Medications meloxicam (Mobic) 15 MG tablet Other Relevant Orders MR lumbar spine wo contrast Chronic low back pain with right-sided sciatica Increased pain and radicular symptoms. Abnormal exam on left leg. Check MRI and start PT. Use mobic PRN. Relevant Orders MR lumbar spine wo contrast documented in this encounter [facility] 05-11-2023 Hospital Discharge instructions Patient Education 05/11/2023 [...] treatment? Where to find more information [employer]: www.cancer.org [employer]: www.auanet.org Contact a health care [...] provider. Document Revised: 08/12/2021 Document Reviewed: 08/12/2021 [employer] Patient Education 2022 [employer]. Follow Up Care 09/08/2022 12:26:22 With:CARINE DELGADO, Yin Patel, URL Address: [facility] [address], [place] [address]- [phone] When: Unknown Comments:PSA in 6 mos and f/u in 1 yr w/ repeat PSA [facility] 04-07-2023 Note HNO ID: [id number] Author: Demond BUTLER MD Service: ? Author Type: Physician Type: [...] ASSESSMENT/PLAN: Prostate adenocarcinoma, initial PSA 4.3, biopsy Elysian score 3 + 4 = 7 (grade group 2), clinical stage T2a, N0, M0, stage IIB [T1-T2, N0, M0, PSA <20, GG 2] (AJCC 8th ed.), s/p TRUS Random and MRI fusion biopsy. PSA remains undetectable. No postradiation related issues. Plan see patient back in one year for further postradiation follow-up. Signed by: Demond Butler MD cc: Kevin Brewer MD ([facility]) [address] [place] [address] Portions of the above note extracted and edited from previous visit as well as active information included in the EMR. [facility] 04-07-2023 Nurse Note AUA=12 documented in this encounter [facility] 04-07-2023 History of Present illness Narrative Radiation Oncology - Follow Up Note PATIENT NAME: Luis Luis PATIENT DIAGNOSIS: Prostate adenocarcinoma, initial PSA 4.3, biopsy Elysian score 3 + 4 = 7 (grade [...] for further postradiation follow-up. Signed by: Demond Butler MD cc: Kevin Brewer MD ([facility]) [address] [place] [id number] Portions of the above note extracted and edited from previous visit as well as active information included in the EMR. documented in this encounter [facility] 02-10-2023 History of Present illness Narrative [...] in office today documented in this encounter [facility] Work Phone: 02-10-2023 Instructions Felix [...] of your visit. documented in this encounter [facility] Work Phone: 09-30-2022 Note HNO ID: [id number] Author: Demond Butler MD Service: ? Author Type: Physician Type: Progress Notes Filed: 10/03/2022 8:14 AM Note Text: Radiation Oncology - Follow Up Note PATIENT NAME: Luis Luis PATIENT DIAGNOSIS: Prostate adenocarcinoma, initial PSA 4.3, biopsy Elysian score 3 + 4 = 7 (grade [...] for further postradiation follow-up. Signed by: Demond Butler MD cc: Kevin Brewer MD ([facility]) [address] [place] [address] Portions of the above note extracted and edited from previous visit as well as active information included in the EMR. [facility] 09-30-2022 History of Present illness Narrative Radiation [...] for further postradiation follow-up. Signed by: Demond Butler MD cc: Kevin Brewer MD ([facility]) [address] [place] [phone] Portions of the above note extracted and edited from previous visit as well as active information included in the EMR. documented in this encounter [facility] 09-30-2022 Nurse Note AUA 14 Naida Jacobo RN documented in this encounter [facility] 09-08-2022 Hospital Discharge instructions Patient Education [...] urethra. Follow these instructions at home: Take xiis-qjs-tvwalet and prescription medicines only as told by [...] provider. Document Revised: 09/04/2021 Document Reviewed: 09/04/2021 VendRx Patient Education 2022 [employer]. Follow Up Care 03/21/2022 12:44:25 With:CARINE DELGADO, ANITA Kaur Address: [facility] [address] [place] [address] [phone] When:Within 8 Month(s) Comments:PSA [facility] 04-01-2022 History of Present illness Narrative Luis Luis was seen and examined by Dr. Butler today. Patient is doing well. He has recovered from external beam and brachytherapy radiation. He denies any unusual pain. He has occasional burning with urination but has improved and continues to improve. He denies any problems with his bowels. Patient was given treatment summary and survivorship care plan for prostate cancer. Yancy Oneill APRN.[employer] documented in this encounter [facility] 04-01-2022 History of Present illness Narrative Radiation Oncology - Follow Up Note PATIENT NAME: Luis Luis PATIENT DIAGNOSIS: Prostate adenocarcinoma, initial PSA 4.3, biopsy Elysian score 3 + 4 = 7 (grade [...] issues. Has continued close follow-up with Dr. Hawk. Plan see patient back in 6 months for further postradiation follow-up. Signed by: Demond Butler MD cc: Kevin Brewer MD ([facility]) [address] [place] [address] Portions of the above note extracted and edited from previous visit as well as active information included in the EMR. documented in this encounter [facility] 04-01-2022 Nurse Note AUA 14 Naida Jacobo RN documented in this encounter [facility] 03-21-2022 Hospital Discharge instructions Patient Education [...] who: Are older than age 65. Are -Greek. Are obese. Have a family history of [...] cells. Follow these instructions at home: Take asno-roq-yxhjljx and prescription medicines only as told by [...] 02/16/2006 Document Revised: 01/29/2018 Document Reviewed: 10/27/2016 VendRx Patient Education 2020 [employer]. Follow Up Care 09/30/2021 11:58:37 With:CARINE DELGADO, Yin Patel, URL Address: [address] [place] [address]- When: Unknown Comments:6 mos w/ PSA [facility] 02-06-2022 Miscellaneous Notes Patient has been rescheduled & notified of appointment. Monica Rodríguez Pt has PSA scheduled with Dr Hawk in March and would like to postpone his follow up visit with Dr Butler until after that is done. PSS- please call pt and reschedule. He will be awaiting your call. Naida Jacobo RN documented in this encounter [facility] 09-30-2021 Hospital Discharge instructions Patient Education [...] urethra. Follow these instructions at home: Take xjmc-ivs-njoffim and prescription medicines only as told by [...] 02/16/2006 Document Revised: 01/11/2019 Document Reviewed: 03/23/2017 VendRx Patient Education 2020 [employer] Follow Up Care 04/01/2021 13:09:22 With:CARINE DELGADO, KAVITA KaurL Address: [facility] [address] [place] [address]- [phone] When:Within 6 Month(s) Comments:w/ ASHER [facility] 08-14-2021 Nurse Note AUA 18 Naida Jacobo RN documented in this encounter [facility] 08-14-2021 History of Present illness Narrative [...] ASSESSMENT/PLAN: Prostate adenocarcinoma, initial PSA 4.3, biopsy Elysian score 3 + 4 = 7 (grade [...] his urologist as well. Signed by: Demond Butler MD cc: Kevin Brewer MD ([facility]) [address] [place] [address] documented in this encounter [facility] 08-09-2021 Hospital Discharge instructions Patient Education [...] including vitamins, herbs, eye drops, creams, and nsku-ygw-ygvcdat medicines. Any problems you or family members [...] 07/27/2006 Document Revised: 01/29/2018 Document Reviewed: 02/25/2017 VendRx Patient Education 2020 [employer] Follow Up Care 07/04/2021 11:13:01 With:CARINE DELGADO, Yin Patel, URL Address: [facility] [address], [place] [address]- [phone] When: Unknown [facility] 08-05-2021 Miscellaneous Notes Ok to resched Luis called in stating he tested positive for COVID-19 on 08/03/21 and his symptoms started , 08/01/21. He has a scheduled 6wk post implant follow up on 08/08/21. He will call us later in the week to possibly reschedule his follow up. Kelly Guo LPN documented in this encounter [facility] 07-25-2021 History of Present illness Narrative Patient: Luis Luis Date:07/25/2021 [facility] Department of Radiation Oncology [facility] [...] will commence following simulation. Electronically Signed CHAVEZ BUTLER M.D. 23:26 PM documented in this encounter [facility] 06-27-2021 History of Present illness Narrative Date: 06/27/21 Facility: [facility] Procedure: prostate transperineal brachytherapy implant Sources: [id number] Anesthesia:general Urologist: Dr. Hawk This is an operative report supplement to Dr. Hawk note. Prior the the implant patient underwent [...] No excess activity seen, results documented. Arnol Butler MD (Signed electronically to expedite mailing) [facility] documented in this encounter [facility] 06-11-2021 History of Present illness Narrative [...] for EMERGENT procedures): No specimen collected. Demond Butler MD documented in this encounter [facility] 06-11-2021 History of Present illness Narrative LUIS LUIS [id number] 06/11/2021 [facility] Department of Radiation Oncology [facility] RADIATION ONCOLOGY SIMULATION NOTE DATE OF SIMULATION: 06/11/2021 MACHINE: [employer] Focus 500 Diagnosis: 185 (Prostate Gland) AREA:Prostate PATIENT POSITION: Supine CONTRAST: None PROTOCOL: None CONCURRENT THERAPY: None FIXATION DEVICE: UTS Stabilization device by [employer]. PROCEDURE: Patient was simulated in exaggerated dorsal lithotomy position. Serial images of the prostate were acquired using TRUS and reconstructed in 3D space. These images were imported into [employer] Prostate planning system where a plan was generated. ASSESSMENT/PLAN: Patient tolerated simulation procedure well. Electronically Signed Chavez Butler M.D. / LAURA 25:05 PM documented in this encounter [facility] Evaluation + Plan note Future Appointments Appointment Date:08/05/2021 08:45:00 AM Scheduled Provider:Yin HAWK MD [facility] Type:URO Office Visit Appointment Date:09/30/2021 10:30:00 AM Scheduled Provider:Yin HAWK MD Location:[facility] [place] Appointment Type:URO Office Visit Future Scheduled TestsPT & PTT 03/05/21BUN 03/05/21Creatinine 03/05/21Electrolyte Panel 03/05/21CBC w/ Auto Diff 03/05/21XR Chest 2 Views 03/05/21 [facility] Evaluation + Plan note Future Appointments Appointment Date:09/30/2021 10:30:00 AM Scheduled Provider:Yin HAWK MD Location:[facility] Appointment Type:URO Office Visit Diagnostic Tests PendingPSA Total 08/09/21 Future Scheduled TestsPT & PTT 03/05/21BUN 03/05/21Creatinine 03/05/21Electrolyte Panel 03/05/21CBC w/ Auto Diff 03/05/21XR Chest 2 Views 03/05/21 [facility] Evaluation + Plan note Future Appointments Appointment Date:03/21/2022 11:00:00 AM Scheduled Provider:Yin HAWK MD Location:[facility] Appointment Type:URO Office Visit Diagnostic Tests PendingPSA Total 09/30/21 Future Scheduled TestsPT & PTT 03/05/21BUN 03/05/21Creatinine 03/05/21Electrolyte Panel 03/05/21CBC w/ Auto Diff 03/05/21XR Chest 2 Views 03/05/21 [facility] Evaluation + Plan note Future Appointments Appointment Date:09/08/2022 10:15:00 AM Scheduled Provider:Yin HAWK MD Location:[facility] Appointment Type:URO Office Visit Diagnostic Tests PendingPSA Total 06/30/22 [facility] Evaluation + Plan note Future Appointments Appointment Date:05/11/2023 09:45:00 AM Scheduled Provider:Yin HAWK MD Location:[facility] Appointment Type:URO Office Visit Diagnostic Tests PendingPSA Total 09/08/22 [facility] Evaluation + Plan note Future Appointments Appointment Date:05/13/2024 09:45:00 AM Scheduled Provider:Yin HAWK MD Location:[facility] Appointment Type:URO Office Visit Diagnostic Tests PendingPSA Total 05/11/23 [facility] Evaluation note Diagnosis Malignant neoplasm of prostate (HCC)- Primary Malignant neoplasm of prostate [facility] Diagnosis Malignant neoplasm of prostate (HCC)- Primary Malignant neoplasm of prostate [facility] Diagnosis Malignant neoplasm of prostate (HCC)- Primary Malignant neoplasm of prostate [facility]* Diagnosis Prostate cancer (HCC) Malignant neoplasm of prostate [facility] Diagnosis Malignant neoplasm of prostate (HCC)- Primary Malignant neoplasm of prostate [facility] Diagnosis Malignant neoplasm of prostate (HCC)- Primary Malignant neoplasm of prostate [facility]* Diagnosis Paroxysmal SVT (supraventricular tachycardia)- Primary Primary hypertension Unspecified essential hypertension Mixed hyperlipidemia Morbid obesity with BMI of 40.0-44.9, adult (CMS/HCC) Bifascicular block Other bilateral bundle branch block documented in this encounter [facility] Work Phone: Evaluation note* Diagnosis Malignant neoplasm of prostate (HCC)- Primary Malignant neoplasm of prostate [facility]No assessment information availableTrihealth [facility] Work Phone: Evaluation note* Diagnosis Morbid obesity due to excess calories (CMS/HCC)- Primary RENAE on CPAP Hypoxia Hypoxemia Snoring Other dyspnea and respiratory abnormality Daytime hypersomnolence [facility] Diagnosis Essential hypertension, benign (CMS/HCC)- Primary Essential hypertension, benign Bilateral leg edema Edema SOB (shortness of breath) on exertion Shortness of breath BPH without urinary obstruction Gastroesophageal reflux disease without esophagitis Esophageal reflux RENAE on CPAP SVT (supraventricular tachycardia) (CMS/HCC) Other specified cardiac dysrhythmias Encounter for long-term (current) use of medications Encounter for long-term (current) use of other medications Colon cancer screening Special screening for malignant neoplasms, colon Dyslipidemia (CMS/HCC) Other and unspecified hyperlipidemia Morbid obesity due to excess calories (CMS/HCC) Essential hypertension, benign (CMS/HCC)- Primary Essential hypertension, benign Lumbar radiculopathy Thoracic or lumbosacral neuritis or radiculitis, unspecified Chronic right-sided low back pain with right-sided sciatica Bilateral leg edema Edema SVT (supraventricular tachycardia) (CMS/HCC) Other specified cardiac dysrhythmias [facility] NarrativePatient returns in follow-up [...] diet lifestyle modific ation exercise and weight loss.[facility] Work Phone: History of Present illness Narrative* [...] merits of diet exercise and weight loss. [facility] [employer] (acquired by [employer] in 2014) Work Phone: Hospital course Narrative No data available for this section [facility] Hospital Discharge instructions No data available for this section [facility] Progress note No data available for this section [facility] Summary Purpose Family History No Family History [...] cerebrovas cular accident (CVA): Sister(V17.1, Z82.3) Status:Active Relationship Condition Age at Onset Recorded Date/T zack brother Cardiac arrhythmia Unknown Advance Directives No Advanced Directives Records Found Advance Directive Response Recorded Date/ Time Advance Directives No September 26 4:21pm Chief Complaint LUIS LUIS is being seen [...] Tiffany Shen RN * TO Dr. Parveen Santo MD LUIS LUIS is being seen for an annual follow-up of. Reason for Referral Specialty Diagnoses / Procedures Referred By Myrtle romeo Referred To Contact Diagnoses Paroxysmal SVT (supraventricular tachycardia) Procedures ECG 12 Lead Parveen Santo MD [address] [place] [address] 2, [place] [phone] Referral ID Status Reason Start Date Expiration Date V isits Requested Visits Authorized [id number] Pending Review 02/10/2023 02/10/2024 1 1 Specialty Diagnoses / Procedures Referred By Myrtle romeo Referred To Contact Cardiology Diagnoses Paroxysmal SVT (supraventricular tachycardia) Procedures Follow Up In Cardiology Parveen Santo MD [address] [place] [address] 2, [place] [phone] Parveen Santo MD [address] [place] [address] 2, [place] [phone] Referral ID Status Reason Start Date Expiration Date V isits Requested Visits Authorized [id number] Authorized 02/10/2023 02/10/2024 1 1 Additional Source Comments (unrecognized sect ion and content) No Status Records FoundNo Status Records FoundNo Status Records FoundNo Status Records FoundNo Status Records FoundNo Status Records FoundNo Status Records FoundNo Status Records FoundNo Status Records Found INFORMATION SOURCE (unrecogn ized section and content) DATE CREATED AUTHOR 12/03/2019 [facility] DATE CREATED AUTHOR AUTHOR'S ORGANIZ ATION 02/12/2022 [facility] DATE CREATED AUTHOR AUTHOR'S ORGANIZ ATION 02/12/2022 [employer] DATE CREATED AUTHOR AUTHOR'S ORGANIZ ATION 07/10/2022 [facility] DATE CREATED AUTHOR AUTHOR'S ORGANIZ ATION 02/13/2023 [facility] DATE CREATED AUTHOR AUTHOR'S ORGANIZ ATION 04/17/2023 [facility] DATE CREATED AUTHOR AUTHOR'S ORGANIZ ATION 05/13/2023 [facility] DATE CREATED AUTHOR AUTHOR'S ORGANIZ ATION 11/22/2023 [facility] DATE CREATED AUTHOR AUTHOR'S ORGANIZ ATION 12/22/2023 [facility] EPIC Source Comments (unrecognize d section and content) In the event this informatio n is protected by the Federal Confidentiality of Alcohol and Drug Abuse Patient Records regulations: The Federal rules restrict any use of the information to criminally investigate or prosecute any alcohol or drug abuse patient.[facility] HospitalIn the event this information is protected by the Federal Confidentiality of Alcohol and Drug Abuse Patient Records regulations: The Federal rules restrict any use of the information to criminally investigate or prosecute any alcohol or drug abuse patient.[facility] HospitalIn the event this information is protected by the Federal Confidentiality of Alcohol and Drug Abuse Patient Records regulations: The Federal rules restrict any use of the information to criminally investigate or prosecute any alcohol or drug abuse patient.[facility] HospitalIn the event this information is protected by the Federal Confidentiality of Alcohol and Drug Abuse Patient Records regulations: The Federal rules restrict any use of the information to criminally investigate or prosecute any alcohol or drug abuse patient.[facility] HospitalIn the event this information is protected by the Federal Confidentiality of Alcohol and Drug Abuse Patient Records regulations: The Federal rules restrict any use of the information to criminally investigate or prosecute any alcohol or drug abuse patient.[facility] HospitalIn the event this information is protected by the Federal Confidentiality of Alcohol and Drug Abuse Patient Records regulations: The Federal rules restrict any use of the information to criminally investigate or prosecute any alcohol or drug abuse patient.[facility] HospitalIn the event this information is protected by the Federal Confidentiality of Alcohol and Drug Abuse Patient Records regulations: The Federal rules restrict any use of the information to criminally investigate or prosecute any alcohol or drug abuse patient.[facility]In the event this information is protected by the Federal Confidentiality of Alcohol and Drug Abuse Patient Records regulations: The Federal rules restrict any use of the information to criminally investigate or prosecute any alcohol or drug abuse patient.[facility] the event this information is protected by the Federal Confidentiality of Alcohol and Drug Abuse Patient Records regulations: The Federal rules restrict any use of the information to criminally investigate or prosecute any alcohol or drug abuse patient.[facility] HospitalIn the event this information is protected by the Federal Confidentiality of Alcohol and Drug Abuse Patient Records regulations: The Federal rules restrict any use of the information to criminally investigate or prosecute any alcohol or drug abuse patient.[facility] HospitalIn the event this information is protected by the Federal Confidentiality of Alcohol and Drug Abuse Patient Records regulations: The Federal rules restrict any use of the information to criminally investigate or prosecute any alcohol or drug abuse patient.[facility] the event this information is protected by the Federal Confidentiality of Alcohol and Drug Abuse Patient Records regulations: The Federal rules restrict any use of the information to criminally investigate or prosecute any alcohol or drug abuse patient.[facility] HospitalIn the event this information is protected by the Federal Confidentiality of Alcohol and Drug Abuse Patient Records regulations: The Federal rules restrict any use of the information to criminally investigate or prosecute any alcohol or drug abuse patient.[facility] Care Teams (unrecognized sec tion and content) 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 Relationship Specialty Start Date End Date Kevin Brewer [address] [place] [address] PCP - General Family Practice 03/22/21 Yin Hawk MD [address] [place] [address] Referring Urology 03/22/21 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 Relationship Specialty Start Date End Date Kevin Brewer [address] [place] [address] PCP - General Family Practice 03/22/21 Yin Hawk MD [address] [place] [address] Referring Urology 03/22/21 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 Relationship Specialty Start Date End Date Kevin Brewer [address] [place] [address] PCP - General Family Practice 03/22/21 Yin Hawk MD [address] [place] [address] Referring Urology 03/22/21 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 Relationship Specialty Start Date End Date Kevin Brewer [address] [place] [address] PCP - General Family Practice 03/22/21 Yin Hawk MD [address] [place] [address] Referring Urology 03/22/21 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 Relationship Specialty Start Date End Date Kevin Brewer [address] [place] [address] PCP - General Family Practice 03/22/21 Yin Hawk MD [address] [place] [address] Referring Urology 03/22/21 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 Relationship Specialty Start Date End Date Kevin Brewer [address] [place] [address] PCP - General Family Medicine 03/22/21 Yin Hawk MD [address] [place] [address] Referring Urology 03/22/21 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 Relationship Specialty Start Date End Date Kevin Brewer [address] [place] [address] PCP - General Family Medicine 03/22/21 Yin Hawk MD [address] [place] [address] Referring Urology 03/22/21 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 Relationship Specialty Start Date End Date Kevin Brewer [address] [place], [place] [id number] PCP - General Family Medicine 03/22/21 Yin Hawk MD [address] [place] [address] Referring Urology 03/22/21 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 Relationship Specialty Start Date End Date Kevin Brewer [address] [place], [place] [id number] PCP - General Family Medicine 03/22/21 Yin Hawk MD [address] [place] [address] Referring Urology 03/22/21 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 Relationship Specialty Start Date End Date Kevin Brewer MD [address] [place] [id number] PCP - General Family Medicine 06/29/23 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 Relationship Specialty Start Date End Date Kevin Brewer MD [address] [place] [phone] PCP - General Family Medicine 06/29/23 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 Relationship Specialty Start Date End Date Kevin Brewer MD [address] [place] [address] PCP - General Family Medicine 06/29/23 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 Relationship Specialty Start Date End Date Kevin Brewer MD [address] [place] [id number] PCP - General Family Medicine 06/29/23 Reason for Visit (unrecogniz ed section and content) Specialty Diagnoses / Procedures Referred By Contac t Referred To Contact Radiation Oncology / RADIATION ONCOLOGY Diagnoses Malignant neoplasm of prostate Seed Implant at [facility] Procedures SEED IMPLANT Demond Btuler MD [address] [place] [address] [place] [address] Demond Butler MD [address] [place] [address] [place] [address] Referral ID Status Reason Start Date Expiration Date V isits Requested Visits Authorized [id number] Authorized 06/27/2021 03/01/2022 99 99 Reason Comments FYI-No Action Needed Covid19 Concern Reason Comments Prostate Cancer Reason Comments Future Appointment Reason Comments Annual Exam Specialty Diagnoses / Procedures Referred By Contac t Referred To Contact Diagnoses Paroxysmal SVT (supraventricular tachycardia) Procedures ECG 12 Lead Parveen Santo MD [address] [facility] [address] [place] [address] Referral ID Status Reason Start Date Expiration Date V isits Requested Visits Authorized [id number] Pending Review 02/10/2023 02/10/2024 1 1 Specialty Diagnoses / Procedures Referred By Contac t Referred To Contact Radiation Oncology / RADIATION ONCOLOGY Diagnoses Malignant neoplasm of prostate SIM/JADA/Pelvis Procedures SIMULATION BREONNA IMRT 25 fractions Demond Butler MD [address] [place] [address] [place] [address] Demond Butler MD [address] [place] [address] [place] [address] Referral ID Status Reason Start Date Expiration Date Visits Re quested Visits Authorized [id number] Closed 04/09/2021 03/01/2022 99 99 Reason Comments Sleep Apnea Reason Comments Follow-up 6 mSciatic pain Goals (unrecognized section and content) Goals may be documented in a n alternate section FOR RECORDS PERTAINING TO PATIENTS WHO ARE [...] BE BASED ON THE PRIMARY CLINICAL RECORDS. [facility] [employer] [facility] provides no warranty or guarantee of the accuracy or completeness of information in this document.
== END 2023-12-29 13:34 | disposition home or self-care (01) ==
LOC: MRI 13:33
PROVIDERS: PCP Family Medicine; Visit Provider Family Medicine
DX: M54.16 Radiculopathy, lumbar region (principal); M54.41 Lumbago with sciatica, right side; G89.29 Other chronic pain; M51.369 Other intervertebral disc degeneration, lumbar region without mention of lumbar back pain or lower extremity pain
CPT/HCPCS: 72148

== ENCOUNTER 2024-02-18 10:00 | Outpatient (OUT) | payer MEDICARE, SELFPAY ==
--- NOTE | 2024-02-18 | XR_ITS ---
The [address] [address] Patient Name: LUIS KHAN MRN: [id number] date: 1950 Sex: M Assigned Patient Location: [facility] Current Patient Location: Accession/Order Number: [id number] Exam Date: 02/18/2024 10:11 Report Date: 02/20/2024 06:33 At the request of: SHABBIR BREWER Procedure: XR hip RT min 2V EXAM: XR hip RT min 2V HISTORY: Chronic right hip pain; M25.551 COMPARISON: None. TECHNIQUE: 2 views of the right hip are performed. FINDINGS: There is no acute fracture or dislocation. There is joint space narrowing, greatest superiorly. Multiple metallic densities project over the midline low pelvis consistent with prior prostate brachytherapy. XR/XR hip RT min 2V IMPRESSION: Degenerative changes. No acute bony abnormality. Electronically authenticated by: ALAYNA HUERTA Date: 02/20/2024 06:33
--- OUTSIDE RECORDS SUMMARY | 2024-02-18 10:18 | XMS_ITS | CCD ---
Author Organization [facility] Care Team Providers Care Record Center Specialist Name Role Phone Kevin Brewer Unavailable Unavailable Unavailable Unavailable Unavailable Kevin Brewer Primary Care Provider Yin Hakw MD Unavailable [phone] KEVIN BREWER Primary Care Physician [phone] Unavailable Unavailable Hansa II, Parveen Wilder Referring [...] Primary Care RachaelvaKevin Bal Primary Care Provider [phone] Yin Hawk MD Unavailable DR KEVIN BREWER Primary Care Unavailable [...] SANTO Attending Unavailable KEVIN BREWER Primary Care Unavailabl Demond Stanton Attending Unavailable KEVIN BREWER Primary Care Unavailable Demond BUTLER Referring Unavailable DANIELLA, KEVIN Scott Primary Care Unavailable Demond BUTLER Referring Unavailable Demond BUTLER Attending Unavailable Yin HAWK Attending Unavailable Yin HAWK Attending Unavailable Yin HAWK Attending Unavailable DO Franchesca Nj Attending Provider Franchesca Nj Attending Unavailable Franhcesca Nj Admitting Unavailable Kevin Brewer Primary Care Provider Yin Hawk MD Unavailable Kevin Brewer MD Primary Care Provider KEVIN BREWER Attending Unavailable FRANCHESCA NJ Attending Unavailable FRANCHESCA NJ Attending Unavailable NAIDA HOBSON Attending Unavailable NADERER, KEVIN Attending Unavailable TANJA DING Attending Unavailable NADERER, KEVIN Referring Unavailable MARINAFRANCHESCA PULIDO Attending Unavailable NADERER, KEVIN Referring Unavailable PULIDODAYNA Attending Unavailable NADERER, KEVIN Referring Unavailable PULIDO, DAYNA Attending Unavailable NADERER, KEVIN Referring Unavailable MARINAFRANCHESCA PULIDO Attending Unavailable NADEREAmanda, KEVIN Referring Unavailable PULIDO, DAYNA Attending Unavailable NADEREAmanda, KEVIN Referring Unavailable CHERYL TAMAYO Attending Unavailable NADERER, KEVIN Referring Unavailable PULIDODAYNA Attending Unavailable NADERER, KEVIN Referring Unavailable PULIDO, DAYNA Attending Unavailable NADERER, KEVIN Referring Unavailable PULIDO, DAYNA Attending Unavailable NADERER, KEVIN Referring Unavailable Allergies Allergy Classification Reported Allergen(s) Allergy Type Date of Onset Reaction(s) Facility (1 source) tamsulosin Drug Allergy 05-31-2021 [facility] Repository Medications Current Medications Medication Drug Class(es) Dates Sig (Normalized) Sig (Original) acetaminophen 325 mg oral tablet (16 sources) Start: 03-07-2021 acetaminophen (TYLENOL) 325 mg tablet Take by mouth. 03/07/2021 Active Start: 03-07-2021 take 2 tablets by mo uth at bedtime as needed for pain acetaminophen [...] (20 sources) HMG-CoA Reductase Inhibitor Start: 0 End: 5 take 1 tablet by mouth at bedtime atorvastatin (Lipitor) 10 MG tablet Indications: Dyslipidemia (CMS/HCC) Take 1 tablet (10 mg) by mouth at bedtime 30 tablet 11 12/21/2023 12/20/2024 Active Comment on above: Take 10 mg by mouth. 24 hr dilTIAZem hydrochloride 180 mg extended release oral capsule (20 sources) Calcium Channel Braeden Start: 0 take 1 tablet by mouth every twenty-four hours dilTIAZem LA (CARDIZEM LA) 240 mg 24 hr tablet Take 240 mg by mouth. 09/28/2019 Active Start: 09-28-2019 take 1 capsule by mo uth in the morning, then take 1 capsule [...] Status: Ordered furosemide 40 mg oral tablet (20 sources) Loop Diuretic Start: 07-28-19 take 1 tablet by mouth once daily as needed for edema furosemide (Lasix) 40 MG tablet Indications: Bilateral leg edema Take 1 tablet (40 mg) by mouth Daily as needed (Leg Edema) 30 tablet 5 07/28/2023 Active meloxicam 15 mg oral tablet (20 sources) Nonsteroidal Anti-inflammatory Drug Start: 12-21-19 End: 01-18-20 take 1 tablet by mouth once daily at mealtime meloxicam (Mobic) 15 MG tablet Indications: Lumbar radiculopathy Take 1 tablet (15 mg) by mouth Daily Take with food 30 tablet 5 01/18/2024 Active Multi Vitamin+ (3 sources) Start: 01-22-20 take 1 capsule by mouth once daily Multi Vitamin+ 1 cap, Oral, Daily, Refill(s) 0, Prophylaxis Start Date: 01/21/21 Status: Ordered 24 hr oxybutynin chloride 10 mg extended release oral tablet (2 sources) Cholinergic Muscarinic Antagonist Start: 08-10-19 oxybutynin 10 mg ER Tab Refills(s) 0 Start Date: 08/09/21 Status: Ordered Start: 08-09-2021 oxybutynin 10 mg ER Tab Refills(s) 0 Start Date: 08/09/21 Status: Ordered potassium chloride 20 meq extended release oral tablet (20 sources) Start: 07-28-2023 take 1 tablet by [...] Comment on above: Take 1 capsule by [facility] twice daily. lisinopril 10 mg oral tablet [...] hyperlipidemia] Onset: 07-09-2022 01-18-2021 Chronic Esophageal disorders (20 sources) Gastroesophageal reflux disease without esophagitis; Translations: [Gastro-esophageal reflux disease without esophagitis] Onset: 06-29-2023 01-18-2021 Chronic Essential hypertension (20 sources) Hypertensive disorder; Translations: [Unspecified essential hypertension] Onset: 07-02-2022 01-18-2021 Chronic Genitourinary symptoms and ill-defined conditions (2 sources) Urge incontinence; Translations: [Urge incontinence of urine] Onset: 05-11-2023 Chronic Hyperplasia of prostate (20 sources) Benign prostatic hypertrophy with outflow obstruction; Translations: [Benign prostatic hyperplasia with lower urinary tract symptoms] Onset: 08-09-2021 01-21-2021 Chronic Nonspecific chest pain (10 sources) Chest pain; Translations: [Chest pain, unspecified] Onset: 02-06-2023 02-06-2023 Episodic Other aftercare (1 source) 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; Translations: [OTH 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 RESOURCE 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 CURRENT DRUG THERAPY] Onset: 07-09-2022 Episodic Other [...] Chronic Other nutritional; endocrine; and metabolic disorders (20 sources) Morbid obesity; Translations: [Morbid (severe) obesity due to excess calories] Onset: 06-29-2023 12-02-2023 Chronic Other screening for suspected conditions (not mental disorders or infectious disease) (6 sources) Raised prostate specific antigen 01-21-2021 Episodic Residual codes; unclassified (6 sources) Sleep apnea 03-07-2021 Chronic Residual codes; unclassified (20 sources) Obstructive sleep apnea syndrome; Translations: [Obstructive [...] Spondylosis; intervertebral disc disorders; other back problems (20 sources) Lumbar radiculopathy; Translations: [Chronic low back pain] Onset: 12-21-2023 12-21-2023 Episodic Unclassified (1 source) Supraventricular tachycardia, unspecified; Translations: [Supraventricular tachycardia, unspecified] Onset: 02-06-2023 Past or Other Problems Problem Classification Problem Date Documented Date Episodic/Chronic Calculus of urinary tract (1 source) Calculus of ureter; Translations: [CALCULUS OF URETER] Onset: 09-24-2021 Episodic Other aftercare (20 sources) Long-term current use of drug therapy; Translations: [Other senior living (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] Onset: 06-29-2023 06-29-2023 Episodic Other lower respiratory disease (20 sources) Dyspnea on exertion; Translations: [Shortness of breath] Onset: 06-29-2023 Resolved: 12-21-2023 06-29-2023 Episodic Residual codes; unclassified (1 source) Family history of malignant neoplasm of prostate; Translations: [FAMILY HX MALIG NEOPLASM PROSTATE] Onset: 03-13-2022 Episodic Residual codes; unclassified (20 sources) Bilateral lower limb edema; Translations: [Localized edema] Onset: 06-29-2023 06-29-2023 Episodic Unclassified (1 source) Onset: 02-10-2023 02-10-2023 Unclassified (1 source) Supraventricular tachycardia, unspecified; Translations: [Supraventricular tachycardia, unspecified] Onset: 02-10-2023 Results Test Name Value Interpretation Reference Range Facility PT PSA, DIAGNOSTICon 12-02 PROSTATE SPECIFIC ANTIGEN DX 0.13 ng/mL NINF - 4.00 ng/mL [facility] Ruddy 11-17-2023 L Specimen: [id number] Received: 11/18/23 Status: LEILANI Javier Num: [id number] Spec Type: Surgical Subm Dr: Franchesca Nj DO Tissues: A Colon Biopsy (SIGMOID POLYP) Procedures: HE/2, Gross/Micro L4 Age/ Patient Sex Location Account Attending Physician Luis Luis 73/M LABELL [id number] Franchesca Nj DO SPEC NUM: [id number] RECD: 11/18/23 STATUS: LEILANI JAVIER NUM: [id number] LULÚ: 11/17/[address]: Franchesca Nj DO ENTERED: 11/18/23-10[address] [facility] DR: Marta,Solange SPEC TYPE: Surgical DEPT: CECILIO RODRIGUEZ ENTERED BY: [id number] RECV BY: [id number] ORDERED: HE/2, Gross/Micro L4 ORDERED: HE/2, Gross/Micro [...] entirely submitted in cassette A1. CPT Codes 66488 Specimen: [id number] Received: 11/18/23 Status: LEILANI Javier Num: [id number] Spec Type: Surgical Subm Dr: Franchesca Nj DO Tissues: A Colon Biopsy (SIGMOID POLYP) Procedures: EDGARDO/2, Gross/Micro L4 Patient: Luis Luis [id number] (Continued) Signed (signature on file) Brynn Watson MD 11/19/231926 Normal [facility] Ambulatory Visit Summaryon 0 05-11-2023 Ambulatory Visit Summary LUIS LUIS :1950 Visit Date:05/11/2023 Ambulatory Visit Instructions Your Diagnosis Prostate cancer Urge incontinence BPH with urinary obstruction Family history of prostate cancer Your Care Team Attending Physician - CARINE [...] [facility] Patient Educationon 05-11-19 Patient Education Oncology Prostate [...] Where to find more information ? The [place] [employer]: www.cancer.org ? [place] [employer]: www.auanet.org Contact a health care [...] adds flu (more content not included)... Normal [facility] Urology Office/Clinic Noteon 05-11-2023 Urology Office/Clinic [...] [facility] [address], [place] [phone] Additional Instructions: PSA in 6 mos and f/u in 1 yr w/ repeat PSA Patient Education Prostate Cancer Screening IKimberly, personally scribed for Dr. Hawk on 05/11/2023 [...] Prostate ca (more content not included)... Normal [facility] Comment on above: Result Comment: Elec tronically Signed By: Yin HAWK MD\.br\Date and Time Signed: 05/11/23 10:34 EDT\.br\Electronically Co-Signed By: Kimberly Nash.br\Date and Time Co-Signed: 05/11/23 10:32 EDT CNOVon 04-07-2023 CNOV Office Visit (RADTSA ) -------- LUIS LUIS ([id number]) 1950 M Date Time Provider Department 04/07/23 1:15 PM Demond BUTLER During your visit today, we recorded the following information about you: Temperature Pulse Respiration Blood pressure 97.9 degrees 80/minute 16/minute 139/83 Weight 149.2 kg Demond Butler MD 04/15/2023 3:32 PM Signed Radiation Oncology - Follow Up Note PATIENT NAME: Luis Rushing Daniellanicholasneo PATIENT DIAGNOSIS: Prostate adenocarcinoma, initial PSA 4.3, [...] ASSESSMENT/PLAN: Prostate adenocarcinoma, initial PSA 4.3, biopsy Vader score 3 + 4 = 7 (grade group 2), clinical stage T2a, N0, M0, stage IIB [T1-T2, N0, M0, PSA <20, GG 2] (AJCC 8th ed.), s/p TRUS Random and MRI fusion biopsy. PSA remains undetectable. No postradiation related issues. Plan see patient back in one year for further postradiation follow-up. Signed by: Demond Butler MD cc: Kevin Brewer MD ([facility]) [address] [place] [address] Portions of the above note extracted and edited from previous visit as well as active information included in the EMR. Kelly Guo LPN 04/15/2023 3:32 PM Signed AUA=12 Referring Provider: Demond BUTLER [[id number]] Allergies As of Date: 04/07/2023 (No Known Allergies) Date Reviewed: 04/07/2023 Reviewed by: Kelly Guo LPN - Fully Assessed Reason for Visit: Prostate Cancer [590] Primary Visit Diagnosis:Malignant neoplasm of prostate (HCC) [C61] Order(s):PSA (OUTSIDE) [9390470] Order #: [id number] PSA/PROSTSPECAG DIAG [SQPSA] Order #: [id number] FUTURE Prescriptions as of 04/15/2023 - naproxen [...] 04/01/2022 Visit Notes: >> Kelly Guo LPN jaleesa Apr 07, 2023 1:09 PM Status: Signed AUA=12 Disposition: Return in about 1 year (around 04/07/2024). Follow-up and Disposition History for Encounter Date Provider Department Center 04/07/2023 [id number] BUTLER JANNA RAVI Encounter Status:Closed by Demond BUTLER on 04/15/23 Normal [facility] Lab Reportson 04-01-2023 Lab Reports [id number] F Normal [facility] ECG 12 Leadon 02-10-2023 Normal sinus rhythm Right bundle branch block left anterior fascicular block Bifascicular block Cannot exclude age-indeterminate inferior infarct QTc 443 ms [facility] Work Phone: CNOVon 09-30-2022 CNOV Office Visit (RADTSA ) -------- BILLLUIS Rushing ([id number]) 1950 M Date Time Provider Department 09/30/22 [...] DIAGNOSIS: Prostate adenocarcinoma, initial PSA 4.3, biopsy Vader score 3 + 4 = 7 (grade [...] ASSESSMENT/PLAN: Prostate adenocarcinoma, initial PSA 4.3, biopsy Vader score 3 + 4 = 7 (grade group 2), clinical stage T2a, N0, M0, stage IIB [T1-T2, N0, M0, PSA <20, GG 2] (AJCC 8th ed.), s/p TRUS Random and MRI fusion biopsy. PSA remains undetectable. No postradiation related issues. Plan see patient back in 6 months for further postradiation follow-up. Signed by: Demond Butler MD cc: Kevin Brewer MD ([facility]) [address] [place] [id number] Portions of the above note extracted and edited from previous visit as well as active information included in the EMR. Referring Provider: Demond BUTLER [[id number]] Allergies As of Date: 09/30/2022 (No Known Allergies) Date Reviewed: 09/30/2022 Reviewed by: Naida Jacobo RN - Fully Assessed Reason for Visit: Prostate Cancer [590] Primary Visit Diagnosis:Malignant neoplasm of prostate (HCC) [C61] Order(s):PSA (OUTSIDE) [[id number]] Order #: [id number] PSA/PROSTSPECAG DIAG [SQPSA] Order #: [id number] FUTURE Prescriptions as of 10/03/2022 - naproxen [...] for Encounter Date Provider Department Center 09/30/2022 [id number] [facility] BREON[facility] Encounter Status:Closed by Demond BUTLER on 10/03/22 Normal [facility] Lab Reportson 09-09-2022 Lab Reports [id number]: 127 Normal [facility] Ambulatory Visit Summaryon 0 09-08-2022 Ambulatory Visit Summary LUIS LUIS :1950 Visit Date:09/08/2022 Ambulatory Visit Instructions Your Diagnosis Prostate cancer BPH with urinary obstruction Family history of prostate cancer Tests Performed Urnls Dip Stick Auto w/o Microscopy POC 17737 Your Care Team Attending Physician - CARINE [...] [facility] Patient Educationon 09-09-19 Patient Education Urology Benign [...] Follow these instructions at home: ? Take dbdj-pse-emvphko and prescription medicines only as told by [...] the medicine (more content not included)... Normal [facility] Urology Office/Clinic Noteon 09-08-2022 Urology Office/Clinic [...] [facility] [address], [place] [phone] Additional Instructions: PSA Patient Education Benign Prostatic Hyperplasia I, Kimberly Nash, personally scribed for Dr. Hawk on 09/08/2022 12:20:46. . Documentation recorded by the scribeKimberly, accurately reflects the services(s) I performed and [...] lifetime) To (more content not included)... Normal [facility] Comment on above: Result Comment: Elec tronically Signed By: Yin HAWK MD\.br\Date and Time Signed: 09/08/22 12:22 EDT\.br\Electronically Co-Signed By: Kimberly Nash\.br\Date and Time Co-Signed: 09/08/22 12:20 EDT CBC AUTO DIFFon 07-02-2022 BASO # 0.1 103/ul Normal 0.0-0.1 [facility] Comment on above: Performed By: #### C BC #### [facility] [address] [place] [address] Dr. Shama Naylor Basophils/100 WBC (Bld) 0.8 % Normal 0.2-2.0 [facility] Comment on above: Performed By: #### C BC #### [facility] [address] [place] [address] Dr. Shama Naylor EO # 0.1 103/ul Normal 0.0-0.7 [facility] Comment on above: Performed By: #### C BC #### [facility] [address] [place] [address] Dr. Shama Naylor Eosinophils/100 WBC (Bld) 2.0 % Normal 0.9-7.0 [facility] Comment on above: Performed By: #### C BC #### [facility] [address] [place] [address] Dr. Shama Naylor Erythrocyte distribution width (RBC) [Ratio] 13.6 % Normal 11.0-15.0 [facility] Comment on above: Performed By: #### C BC #### [facility] [address] [place] [address] Dr. Shama Naylor Hematocrit (Bld) [Volume fraction] 40.0 % Critically low 42.0-54.0 [facility] Comment on above: Performed By: #### C BC #### [facility] [address] [place] [address] Dr. Shama Naylor Hemoglobin (Bld) [Mass/Vol] 13.6 g/dL Critically low 14.0-18.0 [facility] Comment on above: Performed By: #### C BC #### [facility] [address] [place] [address] Dr. Shama Naylor IG # 0.02 10e3/ul Normal 0.00-0.03 [facility] Comment on above: Performed By: #### C BC #### [facility] [address] [place] [address] Dr. Shama Naylor IG % 0.3 % Normal 0.0-0.5 [facility] Comment on above: Performed By: #### C BC #### [facility] [address] [place] [address] Dr. Shama Naylor LYMPH # 1.6 103/ul Normal 1.2-3.8 [facility] Comment on above: Performed By: #### C BC #### [facility] [address] [place] [address] Dr. Shama Naylor Lymphocytes/100 WBC (Bld) 26.0 % Normal 20.5-60.0 [facility] Comment on above: Performed By: #### C BC #### [facility] [address] [place] [address] Dr. Shama Naylor MANUAL DIFF REQ NO Normal [facility] Comment on above: Performed By: #### C BC #### [facility] [address] [place] [address] Dr. Shama Naylor MCH (RBC) [Entitic mass] 30.8 pg Normal 25.9-34.0 [facility] Comment on above: Performed By: #### C BC #### [facility] [address] [place] [address] Dr. Shama Naylor MCHC (RBC) [Mass/Vol] 34.0 g/dL Normal 29.9-35.2 [facility] Comment on above: Performed By: #### C BC #### [facility] [address] [address] [address] Shama Naylor MCV (RBC) [Entitic vol] 90.7 fL Normal 80.0-94.0 [facility] Comment on above: Performed By: #### C BC #### [facility] [address] [address] [address] Shama Naylor MONO # 0.4 103/ul Normal 0.3-0.8 [facility] Comment on above: Performed By: #### C BC #### [facility] [address] [address] [address] Shama Naylor Monocytes/100 WBC (Bld) 6.1 % Normal 1.7-12.0 [facility] Comment on above: Performed By: #### C BC #### [facility] [address] [place] [address] Dr. Shama Naylor NEUT # 3.9 103/ul Normal 1.4-6.5 [facility] Comment on above: Performed By: #### C BC #### [facility] [address] [address] [address] Shama Naylor Neutrophils/100 WBC (Bld) 64.8 % Normal 43.0-75.0 [facility] Comment on above: Performed By: #### C BC #### [facility] [address] [address] [address] Shama Naylor Platelet mean volume (Bld) [Entitic vol] 10.3 fL Normal 9.5-13.5 [facility] Comment on above: Performed By: #### C BC #### [facility] [address] [address] [address] Shama Naylor PLT 165 103/ul Normal 150-450 [facility] Comment on above: Performed By: #### C BC #### [facility] [address] [address] [address] Shama Naylor RBC 4.41 106/ul Critically low 4.70-6.10 [facility] Comment on above: Performed By: #### C BC #### [facility] [address] [address] [address] Shama Naylor WBC 6.0 103/ul Normal 4.0-11.0 [facility] Comment on above: Performed By: #### C BC #### [facility] [address] [address] [address] Shama Naylor LIPID PROFILEon 07-02-2022 CHOL-HDL RATIO NORM SEE BELOW Normal [facility] Comment on above: Result Comment: 3.3 - 4.4 LOW RISK 4.4 - 7.1 AVERAGE RISK 7.1 - 11.0 MODERATE RISK >11.0 HIGH RISK Performed By: #### L IPID, BMP, LIVER #### [facility] [address] [address] [address] Shama Naylor Cholesterol [Mass/Vol] 157 mg/dL Normal <=200 [facility] Comment on above: Performed By: #### L IPID, BMP, LIVER #### [facility] [address] [place] [address] Dr. Shama Naylor Cholesterol in HDL [Mass/Vol] 58 mg/dL Normal 40-60 [facility] Comment on above: Performed By: #### L IPID, BMP, LIVER #### [facility] [address] [place] [address] Dr. Shama Naylor Cholesterol in LDL [Mass/Vol] 81.8 mg/dL Normal [facility] Comment on above: Performed By: #### L IPID, BMP, LIVER #### [facility] [address] [place] [address] Dr. Shama Naylor Cholesterol.total /Cholesterol in HDL [Mass ratio] 2.7 {ratio} Normal [facility] Comment on above: Performed By: #### L IPID, BMP, LIVER #### [facility] [address] [place] [address] Dr. Shama Naylor HDL NORMAL > or = 60 mg/dl - LO W CARDIOVASCULAR RISK <40 mg/dl - HIGH CARDIOVASCULAR RISK Normal [facility] Comment on above: Performed By: #### L IPID, BMP, LIVER #### [facility] [address] [address] [address] Shama Naylor LDL CALC NORMAL SEE BELOW Normal [facility] Comment on above: Result Comment: <100 mg/dl OPTIMAL 100 - 129 mg/dl NEAR OR ABOVE OPTIMAL 130 - 159 mg/dl BORDERLINE HIGH 160 - 189 mg/dl HIGH >190 mg/dl VERY HIGH Performed By: #### L IPID, BMP, LIVER #### [facility] [address] [address] [address] Shama Naylor Triglyceride [Mass/Vol] 86 mg/dL Normal <=150 [facility] Comment on above: Performed By: #### L IPID, BMP, LIVER #### [facility] [address] [place] [address] Dr. Shama Naylor VLDL CALC 17.2 mg/dL Normal [facility] Comment on above: Performed By: #### L IPID, BMP, LIVER #### [facility] [address] [place] [address] Dr. Shama Naylor LIVER PROFILEon 07-02-2022 Albumin [Mass/Vol] 3.3 g/dL Critically low 3.4-5.0 [facility] Comment on above: Performed By: #### L IPID, BMP, LIVER #### [facility] [address] [place] [address] Dr. Shama Naylor Albumin/Globulin [Mass ratio] 1.0 {ratio} Normal [facility] Comment on above: Performed By: #### L IPID, BMP, LIVER #### [facility] [address] [place] [address] Dr. Shama Naylor ALP [Catalytic activity/Vol] 61 U/L Normal 46-116 [facility] Comment on above: Performed By: #### L IPID, BMP, LIVER #### [facility] [address] [place] [address] Dr. Shama Naylor ALT [Catalytic activity/Vol] 38 U/L Normal 16-63 [facility] Comment on above: Performed By: #### L IPID, BMP, LIVER #### [facility] Laboratory [address] [place] [address] Dr. Shama Naylor AST [Catalytic activity/Vol] 14 U/L Critically low 15-37 [facility] Comment on above: Performed By: #### L IPID, BMP, LIVER #### [facility] Laboratory [address] [place] [address] Dr. Shama Naylor BILI, CONJUGATED 0.1 mg/dL Normal 0.0-0.2 [facility] Comment on above: Performed By: #### L IPID, BMP, LIVER #### [facility] Laboratory [address] [place] [address] Dr. Shama Naylor Bilirubin [Mass/Vol] 0.4 mg/dL Normal 0.2-1.0 [facility] Comment on above: Performed By: #### L IPID, BMP, LIVER #### [facility] Laboratory [address] [place] [address] Dr. Shama Naylor Globulin (S) [Mass/Vol] 3.3 g/dL Normal [facility] Comment on above: Performed By: #### L IPID, BMP, LIVER #### [facility] Laboratory [address] [place] [address] Dr. Shama Naylor Protein [Mass/Vol] 6.6 g/dL Normal 6.4-8.2 [facility] Comment on above: Performed By: #### L IPID, BMP, LIVER #### [facility] Laboratory [address] [place] [address] Dr. Shama Naylor PROF CHEM 8 (BAS METB)on Anion gap [Moles/Vol] 9.6 mmol/L Normal [facility] Comment on above: Performed By: #### L IPID, BMP, LIVER #### [facility] Laboratory [address] [place] [address] Dr. Shama Naylor Calcium [Mass/Vol] 8.8 mg/dL Normal 8.5-10.1 [facility] Comment on above: Performed By: #### L IPID, BMP, LIVER #### [facility] Laboratory [address] [place] [address] Dr. Shama Naylor Chloride [Moles/Vol] 107 mmol/L Normal 98-107 [facility] Comment on above: Performed By: #### L IPID, BMP, LIVER #### [facility] Laboratory [address] [address] [address] Shama Naylor CO2 [Moles/Vol] 28.3 mmol/L Normal 21.0-32.0 [facility] Comment on above: Performed By: #### L IPID, BMP, LIVER #### [facility] Laboratory [address] [address] [address] Shama Naylor Creatinine [Mass/Vol] 1.03 mg/dL Normal 0.70-1.30 [facility] Comment on above: Performed By: #### L IPID, BMP, LIVER #### [facility] Laboratory [address] [address] [address] Shama Naylor EGFR-AF PARAGUAYAN >60 Normal >=60 [facility] Comment on above: Performed By: #### L IPID, BMP, LIVER #### [facility] Laboratory [address] [address] [address] Shama Naylor EGFR-NON AF PARAGUAYAN >60 Normal >=60 [facility] Comment on above: Performed By: #### L IPID, BMP, LIVER #### [facility] Laboratory [address] [address] [address] Shama Naylor Glucose [Mass/Vol] 103 mg/dL Normal 74-106 [facility] Comment on above: Performed By: #### L IPID, BMP, LIVER #### [facility] Laboratory [address] [address] [address] Shama Naylor Potassium [Moles/Vol] 3.9 mmol/L Normal 3.5-5.1 [facility] Comment on above: Performed By: #### L IPID, BMP, LIVER #### [facility] Laboratory [address] [address] [address] Shama Naylor Sodium [Moles/Vol] 141 mmol/L Normal 136-145 [facility] Comment on above: Performed By: #### L IPID, BMP, LIVER #### [facility] Laboratory [address] [address] [address] Shama Naylor Urea nitrogen [Mass/Vol] 14.0 mg/dL Normal 7.0-18.0 [facility] Comment on above: Performed By: #### L IPID, BMP, LIVER #### [facility] Laboratory [address] [place], [place] [address] Dr. Shama Naylor Urea nitrogen/Creatini ne [Mass ratio] 13.6 mg/mg Normal [facility] Comment on above: Performed By: #### L IPID, BMP, LIVER #### [facility] Laboratory [address] [place], [place] [address] Dr. Shama Naylor Office Visit (Cardiology)on 02-11-2022 Follow-up visit Diagnoses/Problems Assessed Paroxysmal SVT (supraventricular tachycardia) (427.0) (I47.1) Hypertension (401.9) (I10) HLD (hyperlipidemia) (272.4) (E78.5) Morbid obesity with BMI of 40.0-44.9, adult (278.01,V85.41) (E66.01,Z68.41) Former smoker (V15.82) (Z87.891) Quit in 1970s Orders Morbid obesity with BMI of 40.0-44.9, adult Healthy Weight Tips; Status:Complete; Done: 27Yus2513 Some eating tips that can help you lose weight.; Status:Complete; Done: 29Zbm3180 Paroxysmal SVT (supraventricular tachycardia) IO EKG Electrocardiogram- 12 Lead; Status:Complete; Done: [id number] SocHx: Former smoker Tobacco Use Screening; Status:Complete; Done: [id number] Patient Instructions Please bring all medicines, vitamins, [...] negative for complaint. Vitals Vital Signs Recorded: [id number] 11:05AM Heart Rate73, Apical Csvvvaxh076, LUE, Sitting Xmscbqmux79, LUE, Sitting Height6 ft 2 in Zkguut153 lb BMI Odiqlhadri68.57 kg/m2 BSA Calculated2.64 Tobacco Useb) No PHQ-2 [...] Feb 11 2022 5:56PM EST (Author) Normal [facility] Tobacco Screening.on Adult depression screening assessment No [facility] DO Work Phone: Fall risk assessment a) No falls within the last year [facility] [employer] [address] DO Work Phone: Tobacco use status [facility] b) No [facility] [employer] 250 DO Work Phone: Falls Risk Screeningon 08-12 Fall risk assessment a) No falls within the last year [facility] [employer] 250 DO Work Phone: Office Visit (Cardiology)on [...] Weight Tips; Status:Complete - Retrospective Authorization; Done: [id number] SocHx: Former smoker Tobacco Use Screening; Status:Complete; Done: 78Uvz1039 Unlinked Stop: Aspirin 81 MG Oral Tablet Delayed Release Patient Instructions By signing my name below, IShiloh LPN, Scribe, attest that this documentation has been prepared under the direction and in the presence of Dr. Parveen Santo MD. All medical record entries made by the Efe were at my direction and personally dictated [...] negative for complaint. Vitals Vital Signs Recorded: [id number] 01:46PM Heart Rate72, R Radial Qzcpvljo372, RUE, Sitting Kkuavbxkz78, RUE, Sitting Height6 ft 2 in Eqerlv979 lb BMI Hwovlmpylj04.67 kg/m2 BSA Calculated2.61 Tobacco Useb) No Fall [...] Feb 15 2021 5:53PM EST (Author) Normal [facility] Tobacco Screening.on 021 Fall risk assessment a) No falls within the last year [facility] [employer] 250 DO Work Phone: Tobacco use status [facility] b) No [facility] 250 DO Work Phone: [facility] CARDIAC STRESS/REST INJE CTIONon 11-29-2019 [facility] CARDIAC STRESS/REST INJECTION Patient Name: LUIS LUIS STUDY: MYOCARDIAL PERFUSION STRESS TEST WITH LEXISCAN Performing facility: [facility], [address] [place] [address], [id number] [facility] Provider: Mary Tam RN, PASTRY FINISHER PCP: Dr. Julianna Brewer Supervising provider: Sunday Rai DO, [facility] INDICATION: Chest Pain; HISTORY: Gender: M; Age: 69 y/o ; Height: 187.96 cm; Weight: 969.5668772 kg. High Cholesterol; HTN; Palpitations; Chest Pain; SOB; Quit smoking 40 years ago. COMPARISON: No comparison. ACCESSION NUMBER(S): [id number]; [id number]; [id number] ORDERING CLINICIAN: MARY TAM TECHNIQUE: TWO DAY [...] comparison. Electronically signed by: JAMIL JARRELL MD [facility] Vital Signs Date Time Vital Sign Value Performing Clinician Facility 12-21-2023 08:54-0400 Body height 188 cm Kevin Brewer MD Work Phone: [facility] 12-21-2023 08:54-0400 Body mass index (BMI) [Ratio] 40.19 kg/m2 Kevin Brewer MD Work Phone: [facility] 12-21-2023 08:54-0400 Body temperature 96.6 [degF] Kevin Brewer MD Work Phone: [facility] 12-21-2023 08:54-0400 Body weight 141.98 kg Kevin Brewer MD Work Phone: [facility] 12-21-2023 08:54-0400 Diastolic blood pressure 84 mm[Hg] Kevin Brewer MD Work Phone: [facility] 12-21-2023 08:54-0400 Heart rate 87 /min Kevin Brewer MD Work Phone: [facility] 12-21-2023 08:54-0400 Respiratory rate 20 /min Kevin Brewer MD Work Phone: [facility] 12-21-2023 08:54-0400 SaO2% (BldA) [Mass fraction] 94 % Kevin Brewer MD Work Phone: [facility] 12-21-2023 08:54-0400 Systolic blood pressure 150 mm[Hg] Kevin Brewer MD Work Phone: [facility] 12-02-2023 13:42-0400 Body height 188 cm Naida Valeriemor CONFIGURATION MANAGEMENT ADMINISTRATOR Work Phone: [facility] 12-02-2023 13:42-0400 Body mass index (BMI) [Ratio] 40.06 kg/m2 Naida Gillmor CONFIGURATION MANAGEMENT ADMINISTRATOR Work Phone: [facility] 12-02-2023 13:42-0400 Body weight 141.52 kg Naida Gillmor CONFIGURATION MANAGEMENT ADMINISTRATOR Work Phone: [facility] 12-02-2023 13:42-0400 Diastolic blood pressure 92 mm[Hg] Naida Valeriemor CONFIGURATION MANAGEMENT ADMINISTRATOR Work Phone: [facility] 12-02-2023 13:42-0400 Heart rate 75 /min Naida Gillmor CONFIGURATION MANAGEMENT ADMINISTRATOR Work Phone: [facility] 12-02-2023 13:42-0400 Systolic blood pressure 148 mm[Hg] Naida Gillmor CONFIGURATION MANAGEMENT ADMINISTRATOR Work Phone: [facility] 04-07-2023 13:06-0500 Body temperature 97.9 [degF] SARAVANAN Butler MD Work Phone: [facility] 04-07-2023 13:06-0500 Body weight 149.2 kg SARAVANAN Butler MD Work Phone: [facility] 04-07-2023 13:06-0500 Diastolic blood pressure 83 mm[Hg] SARAVANAN Butler MD Work Phone: [facility] 04-07-2023 13:06-0500 Heart rate 80 /min SARAVANAN Butler MD Work Phone: [facility] 04-07-2023 13:06-0500 Respiratory rate 16 /min SARAVANAN Butler MD Work Phone: [facility] 04-07-2023 13:06-0500 SaO2% (BldA) [Mass fraction] 96 % SARAVANAN Butler MD Work Phone: [facility] 04-07-2023 13:06-0500 Systolic blood pressure 139 mm[Hg] SARAVANAN Butler MD Work Phone: [facility] 02-10-2023 11:10-0500 Body height 188 cm Parveen Santo MD Work Phone: [facility] 02-10-2023 11:10-0500 Body mass index (BMI) [Ratio] 41.6 kg/m2 Parveen Santo MD Work Phone: [facility] 02-10-2023 11:10-0500 Body weight 146.97 kg Parveen Santo MD Work Phone: [facility] 02-10-2023 11:10-0500 Diastolic blood pressure 84 mm[Hg] Parveen Santo MD Work Phone: [facility] 02-10-2023 11:10-0500 Heart rate 67 /min Parveen Santo MD Work Phone: [facility] 02-10-2023 11:10-0500 Systolic blood pressure 132 mm[Hg] Parveen Santo MD Work Phone: [facility] 09-30-2022 13:55-0400 Body temperature 96.69 [degF] SARAVANAN Butler MD Work Phone: [facility] 09-30-2022 13:55-0400 Body weight 144.97 kg SARAVANAN Butler MD Work Phone: [facility] 09-30-2022 13:55-0400 Diastolic blood pressure 85 mm[Hg] SARAVANAN Butler MD Work Phone: [facility] 09-30-2022 13:55-0400 Heart rate 92 /min SARAVANAN Butler MD Work Phone: [facility] 09-30-2022 13:55-0400 Respiratory rate 18 /min SARAVANAN Butler MD Work Phone: [facility] 09-30-2022 13:55-0400 SaO2% (BldA) [Mass fraction] 94 % SARAVANAN Butler MD Work Phone: [facility] 09-30-2022 13:55-0400 Systolic blood pressure 143 mm[Hg] SARAVANAN Butler MD Work Phone: [facility] 09-08-2022 10:50-0400 Blood Pressure Location Yin HAWK [facility] 09-08-2022 10:50-0400 Diastolic blood pressure 73 mm[Hg] Yin HAWK [facility] 09-08-2022 10:50-0400 Heart rate 72 /min Yin HAWK [facility] 09-08-2022 10:50-0400 Respiratory rate 16 /min Yin HAWK [facility] 09-08-2022 10:50-0400 Systolic blood pressure 132 mm[Hg] Yin HAWK [facility] 04-01-2022 14:41-0500 Body temperature 97.2 [degF] SARAVANAN Butler MD Work Phone: [facility] 04-01-2022 14:41-0500 Body weight 142.79 kg SARAVANAN Butler MD Work Phone: [facility] 04-01-2022 14:41-0500 Diastolic blood pressure 90 mm[Hg] SARAVANAN Butler MD Work Phone: [facility] 04-01-2022 14:41-0500 Heart rate 82 /min SARAVANAN Butler MD Work Phone: [facility] 04-01-2022 14:41-0500 Respiratory rate 18 /min SARAVANAN Butler MD Work Phone: [facility] 04-01-2022 14:41-0500 SaO2% (BldA) [Mass fraction] 98 % SARAVANAN Butler MD Work Phone: [facility] 04-01-2022 14:41-0500 Systolic blood pressure 159 mm[Hg] SARAVANAN Butler MD Work Phone: [facility] 03-21-2022 11:25-0500 Blood Pressure Location Yin HAWK [facility] 03-21-2022 11:25-0500 Diastolic blood pressure 80 mm[Hg] Yin HAWK [facility] 03-21-2022 11:25-0500 Heart rate 76 /min Yin HAWK [facility] 03-21-2022 11:25-0500 Respiratory rate 16 /min Yin HAWK [facility] 03-21-2022 11:25-0500 Systolic blood pressure 138 mm[Hg] Yin HAWK [facility] 02-11-2022 11:05-0500 Body height 187.96 cm Kevin Brewer Work Phone: [facility] 250 DO Work Phone: 02-11-2022 11:05-0500 Body mass index (BMI) [Ratio] 40.57 kg/m2 Kevin Lovelaceerer Work Phone: [facility] 250 DO Work Phone: 02-11-2022 11:05-0500 Body surface area Derived from formula 2.64 m2 Kevin Lovelaceerer Work Phone: [facility] 250 DO Work Phone: 02-11-2022 11:05-0500 Body weight 143.34 kg Kevin Lovelaceerer Work Phone: [facility] 250 DO Work Phone: 02-11-2022 11:05-0500 Diastolic blood pressure 78 mm[Hg] Kevin Lovelaceerer Work Phone: [facility] 250 DO Work Phone: 02-11-2022 11:05-0500 Heart rate 73 /min Kevin Lovelaceerer Work Phone: [facility] 250 DO Work Phone: 02-11-2022 11:05-0500 Systolic blood pressure 132 mm[Hg] Kevin Scott Albaniaerer Work Phone: [facility] 250 DO Work Phone: 09-30-2021 10:54-0400 Blood Pressure Location Yin HAWK [facility] 09-30-2021 10:54-0400 Diastolic blood pressure 84 mm[Hg] Yin HAWK [facility] 09-30-2021 10:54-0400 Heart rate 75 /min Yin HAWK [facility] 09-30-2021 10:54-0400 Respiratory rate 16 /min Yin HAWK [facility] 09-30-2021 10:54-0400 Systolic blood pressure 136 mm[Hg] Yin HAWK [facility] 08-14-2021 09:47-0400 Body temperature 96.69 [degF] SARAVANAN Butler MD Work Phone: [facility] 08-14-2021 09:47-0400 Body weight 141.98 kg SARAVANAN Butler MD Work Phone: [facility] 08-14-2021 09:47-0400 Diastolic blood pressure 82 mm[Hg] SARAVANAN Butler MD Work Phone: [facility] 08-14-2021 09:47-0400 Heart rate 82 /min SARAVANAN Butler MD Work Phone: [facility] 08-14-2021 09:47-0400 Respiratory rate 20 /min SARAVANAN Butler MD Work Phone: [facility] 08-14-2021 09:47-0400 SaO2% (BldA) [Mass fraction] 94 % SARAVANAN Butler MD Work Phone: [facility] 08-14-2021 09:47-0400 Systolic blood pressure 131 mm[Hg] SARAVANAN Butler MD Work Phone: [facility] 08-12-2021 10:15-0400 Body height 187.96 cm Kevin Brewer Work Phone: [facility] 250 DO Work Phone: 08-12-2021 10:15-0400 Body mass index (BMI) [Ratio] 39.93 kg/m2 Kevin Scott Naderer Work Phone: [facility] 250 DO Work Phone: 08-12-2021 10:15-0400 Body surface area Derived from formula 2.62 m2 Kevin Scott Naderer Work Phone: [facility] 250 DO Work Phone: 08-12-2021 10:15-0400 Body weight 141.07 kg Kevin Scott Naderer Work Phone: [facility] 250 DO Work Phone: 08-12-2021 10:15-0400 Diastolic blood pressure 80 mm[Hg] Kevin Scott Naderer Work Phone: [facility] 250 DO Work Phone: 08-12-2021 10:15-0400 Heart rate 69 /min Kevin Scott Naderer Work Phone: [facility] 250 DO Work Phone: 08-12-2021 10:15-0400 Systolic blood pressure 130 mm[Hg] Kevin Lovelaceerer Work Phone: [facility] 250 DO Work Phone: 08-09-2021 09:42-0400 Blood Pressure Location Yin HAWK [facility] 08-09-2021 09:42-0400 Diastolic blood pressure 80 mm[Hg] Yin HAWK [facility] 08-09-2021 09:42-0400 Heart rate 75 /min Yin HAWK [facility] 08-09-2021 09:42-0400 Respiratory rate 16 /min Yin HAWK [facility] 08-09-2021 09:42-0400 Systolic blood pressure 134 mm[Hg] [facility] 02-15-2021 13:46-0500 Body height 187.96 cm Kevin Sonia Naderer Work Phone: [facility] 250 DO Work Phone: 02-15-2021 13:46-0500 Body mass index (BMI) [Ratio] 39.67 kg/m2 Kevin A Naderer Work Phone: [facility] 250 DO Work Phone: 02-15-2021 13:46-0500 Body surface area Derived from formula 2.61 m2 Kevin A Naderer Work Phone: [facility] 250 DO Work Phone: 02-15-2021 13:46-0500 Body weight 140.16 kg Kevin A Naderer Work Phone: [facility] 250 DO Work Phone: 02-15-2021 13:46-0500 Diastolic blood pressure 80 mm[Hg] Kevin A Naderer Work Phone: [facility] 250 DO Work Phone: 02-15-2021 13:46-0500 Heart rate 72 /min Kevin A Naderer Work Phone: [facility] DO Work Phone: 02-15-2021 13:46-0500 Systolic blood pressure 118 mm[Hg] Kevin Brewer Work Phone: [facility] 250 DO Work Phone: Encounters Encounter Date Encounter Type Care Provider Facility Start: 05-13-2024 ambulatory Yin R CARINE Cain ty:[facility] Start: 02-15-2024 End: 02-15-2024 Bamboo flowsheet Dayna Pulido HAND PASTER Work Phone: [facility] Start: 02-15-2024 End: 02-15-2024 Bamboo flowsheet Dayna Pulido HAND PASTER Work Phone: [facility] Start: 02-15-2024 End: 02-15-2024 ambulatory Dayna Pulido HAND PASTER Work Phone: [facility] Comment on above: Lumbar radiculopathy (Primary Dx); Chronic right-sided low back pain with right-sided sciatica Start: 02-10-2024 End: 02-10-2024 Bamboo flowsheet Dayna Pulido HAND PASTER Work Phone: [facility] Start: 02-10-2024 End: 02-10-2024 Bamboo flowsheet Dayna Pulido HAND PASTER Work Phone: [facility] Start: 02-10-2024 End: 02-10-2024 ambulatory Dayna Pulido HAND PASTER Work Phone: [facility] Comment on above: Lumbar radiculopathy (Primary Dx); Chronic right-sided low back pain with right-sided sciatica Start: 02-08-2024 End: 02-08-2024 Bamboo flowsheet Dayna Pulido HAND PASTER Work Phone: [facility] Start: 02-08-2024 End: 02-08-2024 Bamboo flowsheet Dayna Pulido HAND PASTER Work Phone: [facility] Start: 02-08-2024 End: 02-08-2024 ambulatory Dayna Pulido HAND PASTER Work Phone: [facility] Comment on above: Lumbar radiculopathy (Primary Dx); Chronic right-sided low back pain with right-sided sciatica Start: 02-05-2024 End: 02-05-2024 Bamboo flowsheet Cheryl Tamayo HAND PASTER [facility] Start: 02-05-2024 End: 02-05-2024 Bamboo flowsheet Cheryl Tamayo HAND PASTER [facility] Start: 02-05-2024 End: 02-05-2024 ambulatory Cheryl Tamayo HAND PASTER [facility] Comment on above: Lumbar radiculopathy (Primary Dx); Chronic right-sided low back pain with right-sided sciatica Start: 02-03-2024 End: 02-03-2024 Bamboo flowsheet Dayna Pulido HAND PASTER Work Phone: [facility] Start: 02-03-2024 End: 02-03-2024 Bamboo flowsheet Dayna Pulido HAND PASTER Work Phone: [facility] Start: 02-03-2024 End: 02-03-2024 ambulatory Dayna Pulido HAND PASTER Work Phone: [facility] Comment on above: Lumbar radiculopathy (Primary Dx); Chronic right-sided low back pain with right-sided sciatica Start: 01-27-2024 End: 01-27-2024 Bamboo flowsheet Franchesca J Marina PT Work Phone: [facility] Start: 01-27-2024 End: 01-27-2024 Bamboo flowsheet Franchesca J Marina PT Work Phone: [facility] Start: 01-27-2024 End: 01-27-2024 ambulatory Franchesca J Marina PT Work Phone: [facility] Comment on above: Lumbar radiculopathy (Primary Dx); Chronic right-sided low back pain with right-sided sciatica Start: 01-25-2024 End: 01-25-2024 Bamboo flowsheet Dayna Pulido HAND PASTER Work Phone: [facility] Start: 01-25-2024 End: 01-25-2024 Bamboo flowsheet Dayna Pulido HAND PASTER Work Phone: [facility] Start: 01-25-2024 End: 01-25-2024 ambulatory Dayna Pulido HAND PASTER Work Phone: [facility] Comment on above: Lumbar radiculopathy (Primary Dx); Chronic right-sided low back pain with right-sided sciatica Start: 01-21-2024 End: 01-21-2024 Bamboo flowsheet Dayna Pulido HAND PASTER Work Phone: [facility] Start: 01-21-2024 End: 01-21-2024 Bamboo flowsheet Dayna Pulido HAND PASTER Work Phone: [facility] Start: 01-21-2024 End: 01-21-2024 ambulatory Dayna Pulido HAND PASTER Work Phone: [facility] Comment on above: Lumbar radiculopathy (Primary Dx); Chronic right-sided low back pain with right-sided sciatica Start: 01-20-2024 End: 01-20-2024 Bamboo flowsheet Franchesca J Marina PT Work Phone: [facility] Start: 01-20-2024 End: 01-20-2024 Bamboo flowsheet Franchesca J Marina PT Work Phone: [facility] Start: 01-20-2024 End: 01-20-2024 ambulatory Franchesca J Marina PT Work Phone: [facility] Comment on above: Lumbar radiculopathy (Primary Dx); Chronic right-sided low back pain with right-sided sciatica Start: 01-14-2024 End: 01-14-2024 Bamboo flowsheet Tanja Ding PT Work Phone: [facility] Start: 01-14-2024 End: 01-14-2024 Bamboo flowsheet Tanja Ding PT Work Phone: [facility] Start: 01-14-2024 End: 01-14-2024 ambulatory Tanja Kristan Ding PT Work Phone: [facility] Comment on above: Lumbar radiculopathy ; Chronic right-sided low back pain with right-sided sciatica Start: 12-21-2023 End: 12-21-2023 Bamboo flowsheet Kevin [...] 12-02-2023 End: 12-02-2023 Bamboo flowsheet Naida Hobson CONFIGURATION MANAGEMENT ADMINISTRATOR Work Phone: [facility] [address] Start: 12-02-2023 End: 12-02-2023 Bamboo flowsheet Naida Hobson CONFIGURATION MANAGEMENT ADMINISTRATOR Work Phone: [facility] [address] Start: 12-02-2023 End: 12-02-2023 ambulatory NAIDA HOBSON Not Available Start: 12-02-2023 End: 12-02-2023 Office outpatient visit 25 minutes Naida Hobson CONFIGURATION MANAGEMENT ADMINISTRATOR Work Phone: [facility] [address] Comment on above: Morbid obesity due t o excess calories (CMS/HCC) (Primary Dx); RENAE on CPAP; Hypoxia; Snoring; Daytime hypersomnolence Start: 11-17-2023 End: 11-17-2023 ambulatory Franchesca Nj [facility] Work Phone: Start: 11-17-2023 End: 11-17-2023 Departed Referred DO Franchesca Nj Work Phone: [facility] Start: 10-28-2023 End: 10-28-2023 ambulatory FRANCHESCA MONROYETT Not Available Start: 07-13-2023 End: 07-13-2023 ambulatory FRANCHESCA ONDINA Not Available Start: 06-29-2023 End: 06-29-2023 ambulatory KEVIN BREWER Not Available Start: 05-11-2023 End: 05-12-2023 ambulatory Yin HAWK Facility:[facility] Start: 05-11-2023 End: 05-11-2023 Patient encounter procedure Yin HAWK [facility] Start: 04-07-2023 End: 04-07-2023 ambulatory Demond BUTLER Facility:[facility] Start: 04-07-2023 End: 04-07-2023 Patient encounter procedure Demond Butler MD Work Phone: Radiation Oncology Comment on above: Malignant neoplasm o f prostate (HCC) (Primary Dx) Start: 02-10-2023 End: 02-10-2023 ambulatory PARVEEN SANTO [facility] Ambulatory Start: 02-10-2023 End: 02-10-2023 Office outpatient visit 25 minutes Parveen Santo MD Work Phone: [facility] Comment on above: Paroxysmal SVT (supr aventricular tachycardia) (Primary Dx); Primary hypertension; Mixed hyperlipidemia; Morbid obesity with BMI of 40.0-44.9, adult (CMS/HCC); Bifascicular block Start: 09-30-2022 End: 09-30-2022 ambulatory KEVIN BREWER Facility:[facility] Start: 09-30-2022 End: 09-30-2022 Patient encounter procedure Demond Butler MD Work Phone: Radiation Oncology Comment on above: Malignant neoplasm o f prostate (HCC) (Primary Dx) Start: 09-08-2022 End: 09-09-2022 ambulatory Yin HAWK Facility:[facility] Start: 09-08-2022 End: 09-08-2022 Patient encounter procedure Yin HAWK [facility] Start: 07-25-2022 Rx Renewal [facility] Work Phone: Start: 07-02-2022 End: 07-03-[address] KEVIN BREWER Facility:[facility] Start: 04-07-2022 Rx Renewal [facility] DO Work Phone: Start: 04-01-2022 End: 04-01-2022 ambulatory Yancy Oneill APRN.PASTRY FINISHER Work Phone: Hematology/Oncology Comment on above: Prostate cancer (HCC ) Start: 04-01-2022 End: 04-01-2022 Patient encounter procedure Yancy Oneill APRN.PASTRY FINISHER Work Phone: [facility] Comment on above: Malignant neoplasm o f prostate (HCC) (Primary Dx) Start: 03-21-2022 End: 03-21-2022 Patient encounter procedure Yin HAWK [facility] Start: 03-11-2022 End: 03-12-[address] KEVIN BREWER Facility:[facility] Start: 02-11-2022 ambulatory Parveen Santo II Facility: Start: 02-11-2022 Office outpatient vi sit 15 minutes Kevin Brewer Work Phone: [facility] 250 DO Work Phone: Start: 02-05-2022 Telephone encounter Demond Butler MD Work Phone: Radiation Oncology Comment on above: Future Appointment Start: 01-14-2022 Rx Renewal Kevin Brewer Work Phone: [facility] 250 DO Work Phone: Start: 09-30-2021 End: 09-30-2021 Patient encounter procedure Yin HWAK [facility] Start: 09-23-2021 End: 09-24-[address] KEVIN BREWER Facility: Start: 08-14-2021 End: 08-14-2021 Patient encounter procedure Demond Butler MD Work Phone: Radiation Oncology Comment on above: Malignant neoplasm o f prostate (HCC) (Primary Dx) Start: 08-12-2021 Patient encounter procedure Kevin Brewer Work Phone: [facility] 250 DO Work Phone: Start: 08-12-2021 ambulatory Parveen Santo Facility: Start: 08-09-2021 End: 08-09-2021 Patient encounter procedure Yin HAWK [facility] Start: 08-05-2021 Telephone encounter Demond Butler MD Work Phone: Radiation Oncology Comment on above: FYI-No Action Needed ; Covid19 Concern Start: 07-25-2021 Patient encounter procedure Demond Butler MD Work Phone: [facility] Start: 07-25-2021 Radiation Oncology Note Demond Butler MD Work Phone: Radiation Oncology Comment on above: Simulation Note Start: 07-25-2021 End: 07-25-2021 Subsequent hospital visit by physician Pet Ct Scan Eldena Work Phone: Radiology Pet CT Start: 07-24-2021 KASSIE Brewer Work Phone: [facility] 250 DO Work Phone: Start: 07-16-2021 End: 07-17-[address] KEVIN BREWER Facility: Start: 07-04-2021 End: 07-04-2021 Patient encounter procedure Abdulaziz Ramirez EUNICE [facility] Start: 06-27-2021 End: 06-28-2021 Patient encounter procedure Demond Butler MD Work Phone: Radiation Oncology Comment on above: Malignant neoplasm o f prostate (HCC) (Primary Dx) Start: 06-11-2021 End: 06-11-2021 Patient encounter procedure Demond Butler MD Work Phone: Radiation Oncology Comment on above: Malignant neoplasm o f prostate (HCC) (Primary Dx) Start: 06-11-2021 Radiation Oncology Note Demond Butler MD Work Phone: Radiation Oncology Comment on above: Simulation Note Start: 04-26-2021 Rx Renewal Kevin Brewer Work Phone: [facility] 250 DO Work Phone: Start: 04-09-2021 End: 04-09-2021 Subsequent hospital visit by physician Demond Butler MD Work Phone: Radiology Pet CT Start: 02-15-2021 ambulatory Parveen Santo II Facility: Start: 02-15-2021 Office outpatient vi sit 15 minutes Kevin Brewer Work Phone: [facility] 250 DO Work Phone: Start: 01-22-2021 Rx Renewal Kevin A Naderer Work Phone: [facility] 250 DO Work Phone: Procedures Date Procedure Procedure Detail Performing Clinician Start: 12-03-2023 MHPT PSA, DIAGNOSTIC Ge neric External Data Provider Start: 11-17-2023 Colonoscopy Naida Alcantar sarah CONFIGURATION MANAGEMENT ADMINISTRATOR Work Phone: Start: 03-31-2023 PSA screening [facility] Provi kilo Start: 02-10-2023 ECG 12-LEAD PARVEEN PATEL Start: 02-10-2023 Ecg routine ecg w/le ast 12 lds w/i&r Parveen Santo MD Work Phone: Start: 08-29-2022 PSA screening [facility] Provi kilo Start: 03-11-2022 End: 03-11-2022 PSA screening [facility] Provider Comment on above: Performed By: #### P SAD #### [facility] [address] [address] [address] Shama Naylor Start: 09-23-[address] KEVIN BROOKS Comment on above: Performed By: #### P SAD #### [facility] [address] [address] [address] Shama Naylor Start: 07-16-2021 End: 07-16-2021 PSA screening [facility] Provider Comment on above: Performed By: #### P SAD #### [facility] [address] [address] [address] Shama Naylor Start: 06-27-2021 Brachytherapy Yin W ATEBONIFACIO Start: 03-14-2021 Transrectal biopsy o f prostate Abdulaziz DAWSON Arthroplasty of wrist Abdulaziz RICE Colonoscopy Abdulaziz DAWSON Surgical repair of u pper extremity Kevin A Naderer Work Phone: Total colonoscopy Kevin A Nad erer Work Phone: Plan of Treatment Date Care Activity Detail Author Start: 11-16-2033 Screening for malign ant neoplasm of colon [facility] Start: 2025 RSV Vaccine (1 - 1-d ose 75+ series) RSV Vaccine (1 - 1-dose 75+ series) [facility] Start: 12-20-2024 Medicare Annual Well ness (AWV) Medicare Annual Wellness (AWV) [facility] Start: 04-05-2024 End: 04-05-2024 Patient encounter procedure 04/05/2024 1:15 PM EST Office Visit Radiation Oncology [address] [place] [address] Demond Butler MD [address] [place] [address] 1 yr rv Radiation Oncology Comment on above: 1 yr rv Start: 03-23-2024 End: 03-23-2024 Patient encounter procedure 03/23/2024 9:00 AM EST Office Visit [facility] [address] [place] [address] Kevin Brewer MD [address] [place] [address] [facility] Start: 03-08-2024 End: 03-08-2024 Patient encounter procedure 03/08/2024 9:00 AM EST Office Visit [facility] [address] [facility] [address] [place] [address] Parveen Santo MD [address] [facility] [address], [place] [address] [place] [address] [facility] Start: 02-17-2024 End: 02-17-2024 ambulatory 02/17/2024 9:00 AM EST Treatment [facility] [address] [place] [address] Dayna Pulido, HAND PASTER [address] [place] [address] [facility] Start: 02-15-2024 End: 02-15-2024 ambulatory [facility] Comment on above: Arrived Start: 02-10-2024 End: 02-10-2024 ambulatory [facility] Comment on above: Lumbar radiculopathy (Primary Dx); Chronic right-sided low back pain with right-sided sciatica Start: 02-08-2024 End: 02-08-2024 ambulatory [facility] Comment on above: Lumbar radiculopathy (Primary Dx) Start: 02-05-2024 End: 02-05-2024 ambulatory [facility] Comment on above: Arrived Start: 02-03-2024 End: 02-03-2024 ambulatory [facility] Comment on above: Arrived Start: 01-27-2024 End: 01-27-2024 ambulatory [facility] Start: 01-25-2024 End: 01-25-2024 ambulatory [facility] Comment on above: Arrived Start: 01-21-2024 End: 01-21-2024 ambulatory [facility] Comment on above: Arrived Start: 01-20-2024 End: 01-20-2024 ambulatory 01/20/2024 10:00 AM EST Treatment [facility] [address] [place] [address] Franchesca Ram, PT [address] [place], [place] [id number] Arrived [facility] Comment on above: Arrived Start: 12-21-2023 End: 12-20-2024 MR Lumbar spine WO contrast MR lumbar spine wo contrast Imaging Routine Lumbar radiculopathy Chronic right-sided low back pain with right-sided sciatica Expected: 12/21/2023, Expires: 12/20/2024 [facility] Work Phone: Comment on above: Expected: 12/21/2023 , Expires: 12/20/2024 Start: 12-21-2023 End: 12-21-2023 Patient encounter procedure 12/21/2023 8:45 AM EDT Office Visit [facility] [address] [place] [address] Kevin Brewer MD [address] [place] [address] [facility] Start: 11-01-2023 Covid-19 Vaccine ( season) Covid-19 Vaccine ( season) [facility] Start: 11-01-2023 Influenza vaccination Influenza Vacc ine (#1) [facility] Start: 04-07-2023 End: 07-07-2023 Prostate specific Ag [Mass/volume] in Serum or Plasma PSA/PROSTSPECAG DIAG Lab Routine Malignant neoplasm of prostate (HCC) Expected: 04/07/2023, Expires: 07/07/2023 [facility] Work Phone: Comment on above: Expected: 04/07/2023 , Expires: 07/07/2023 Start: 04-02-2023 End: 06-02-2023 Prostate specific Ag [Mass/volume] in Serum or Plasma PSA/PROSTSPECAG DIAG Lab Routine Malignant neoplasm of prostate (HCC) Expected: 04/02/2023 (Approximate), Expires: 06/02/2023 [facility] Work Phone: Comment on above: Expected: 04/02/2023 (Approximate), Expires: 06/02/2023 Start: 03-02-2023 Advance Directive Discussion Advance Directive Discussion [facility] Start: 03-02-2023 Depression Assessment [facility] Start: 02-10-2023 FUV, Provider: Parveen Santo, Status: Pen, Time: 11:00 AM FUV, Provider: Parveen Santo, Status: Pen, Time: 11:[address] [address] DO Work Phone: Start: 10-31-2022 Covid-19 Vaccine () Covid-19 Vaccine () [facility] Start: 10-31-2022 Influenza vaccination [facility] Start: 03-02-2022 ADVANCE DIRECTIVE DISCUSSION ADVANCE DIRECTIVE DISCUSSION [facility] Start: 03-02-2022 [facility] Start: 02-11-2022 FUV, Provider: Parveen Santo, Status: Pen, Time: 10:50 AM FUV, Provider: Parveen Santo, Status: Pen, Time: 10:50 AM [facility] 250 DO Work Phone: Start: 10-31-[address] [facility] Start: 04-15-2021 COVID-19 VACCINE (4 - Booster for Pfizer series) COVID-19 VACCINE (4 - Booster for Pfizer series) [facility] Start: 03-02-2021 ADVANCE DIRECTIVE DISCUSSION ADVANCE DIRECTIVE DISCUSSION [facility] Start: 03-02-2021 DEPRESSION ASSESSMENT DEPRESSION ASS ESSMENT [facility] Start: 02-15-2021 FUV, Provider: Parveen Santo, Status: Pen, Time: 1:30 PM FUV, Provider: Parveen Santo, Status: Pen, Time: 1:30 PM [facility] [employer] 250 DO Work Phone: Start: 02-07-2021 COVID-19 VACCINE (4 - Booster for Pfizer series) COVID-19 VACCINE (4 - Booster for Pfizer series) [facility] Start: 02-07-2021 COVID-19 VACCINE (4 - Pfizer series) COVID-19 VACCINE (4 - Pfizer series) [facility] Start: 07-02-2015 Abdominal aortic aneurysm screening Abdominal Aortic Aneurysm (AAA) Screening [facility] Start: 07-02-2015 Pneumococcal Vaccine : 65+ (1 of 1 - PCV) Pneumococcal Vaccine: 65+ (1 of 1 - PCV) [facility] Start: 07-02-2015 Pneumococcal Vaccine : 65+ Years (1 - PCV) Pneumococcal Vaccine: 65+ Years (1 - PCV) [facility] Start: 07-02-2015 Pneumococcal Vaccine : 65+ Years (1 of 1 - PCV) Pneumococcal Vaccine: 65+ Years (1 of 1 - PCV) [facility] Start: 07-02-2015 PNEUMOCOCCAL: 65+ (1 - PCV) PNEUMOCOCCAL: 65+ (1 - PCV) [facility] Start: 07-02-2015 PNEUMOVAX AGE 65 AND OVER WITH 5YR LOOKBACK (#1) PNEUMOVAX AGE 65 AND OVER WITH 5YR LOOKBACK (#1) [facility] Start: 2010 RSV Vaccine (1 - 1-d ose 60+ series) RSV Vaccine (1 - 1-dose 60+ series) [facility] Start: 2000 SHINGRIX VACCINE (1 of 2) SHINGRIX VACCINE (1 of 2) [facility] Start: 2000 Zoster Vaccines (1 of 2) Zoste r Vaccines (1 of 2) [facility] Start: 07-02-1995 COLOGUARD (FIT-DNA) COLOGUARD (FIT-D NA) [facility] Start: 07-02-1995 Colonoscopy COLONOSCOPY [facility] Start: 07-02-1995 COLORECTAL CANCER SCREENING COLORECTAL CANCER SCREENING [facility] Start: 07-02-[address] COLONOGRAPHY [facility] Start: 07-02-1995 [facility]ABET[facility]EN [facility] Start: 07-02-1995 Diabetes Screening Diabetes Screenin g [facility] Start: 07-02-1995 FECAL OCCULT BLOOD FECAL OCCULT BLOO D [facility] Start: 07-02-1995 Screening for malign ant neoplasm of colon [facility] Start: 07-02-1995 SIGMOIDOSCOPY SIGMOIDOSCOPY [facility] Start: 1985 Lipid panel Lipid Screening [facility] Start: 1985 LIPID SCREEN LIPID SCREEN [facility] Start: 1972 DTaP/Tdap/Td Vaccine s (1 - Tdap) DTaP/Tdap/Td Vaccines (1 - Tdap) [facility] Start: 1969 SHINGRIX VACCINE (1 of 2) SHINGRIX VACCINE (1 of 2) [facility] Start: 1969 Urine microalbumin profile [facility] Start: 1968 Anxiety Screening Anxiety Screening [facility] Start: 1968 Depression Screening Depression Scre ening [facility] Start: 1968 Diabetes mellitus screening Diabetes Screening [facility] Start: 1968 HEPATITIS C SCREENING HEPATITIS C [facility] Start: 1968 Hepatitis C screening Hepatitis C [facility] Start: 1962 Adult depression screening assessment DEPRESSION SCREENING [facility] Start: 1956 PNEUMOCOCCAL: 65+ (1 - PCV) PNEUMOCOCCAL: 65+ (1 - PCV) [facility] Start: 1950 ABDOMINAL AORTIC ANEURYSM SCREENING ABDOMINAL AORTIC ANEURYSM SCREENING [facility] Start: 1950 Abdominal aortic aneurysm screening Abdominal Aortic Aneurysm Screening [facility] Start: 1950 Lipid panel Lipid Panel [facility] Start: 1950 Medicare Annual Well ness (AWV) Medicare Annual Wellness (AWV) [facility] Start: 1950 Medicare Annual Well ness Visit Medicare Annual Wellness Visit (AWV) [facility] Start: 1950 Screening for malign ant neoplasm of colon [facility] Immunizations Immunization Date Immunization Notes Care Provider [facility] 11-28-2021 Fluzone High-Dose Quadrivalent 0.7 ML Intramuscular Suspension Prefilled Syringe Kevin A Naderer Work Phone: [facility] 250 DO Work Phone: 11-28-2021 influenza virus vaccine, unspecified formulation Yin HAWK [facility] 11-28-2021 influenza, high dose seasonal, preservative-free Parveen Santo MD Work Phone: [facility] Work Phone: 12-13-2020 Pfizer-BioNTech COVID-19 Vacc 30 MCG/0.3ML Intramuscular Suspension Kevin A Naderer Work Phone: [facility] 05-19-2020 Pfizer-BioNTech COVID-19 Vacc 30 MCG/0.3ML Intramuscular Suspension Kevin A Naderer Work Phone: [facility] 04-28-2020 Pfizer-BioNTech COVID-19 Vacc 30 MCG/0.3ML Intramuscular Suspension Kevin A Naderer Work Phone: [facility] 03-02-2020 SARS-CoV-2 (COVID-19 ) mRNA BNT-162b2 renate DAWSON [facility] Comment on above: Result Comment: pt i s fully vaccinated and has received the booster but does not remember the dates 12-14-2019 influenza virus vaccine, unspecified formulation Yin HAWK [facility] 12-14-2019 influenza, injectabl e, quadrivalent, preservative free Kevin A Naderer Work Phone: [address] [place] [address] DO Work Phone: 12-01-2019 influenza virus vaccine, unspecified formulation Yin HAWK [facility] 12-01-2019 influenza, seasonal, injectable Kevin A Naderer Work Phone: [address] [address] DO Work Phone: 02-09-2012 influenza virus vaccine, unspecified formulation Yin HAWK [facility] 02-09-2012 influenza, seasonal, injectable Kevin A Naderer Work Phone: [address] [address] DO Work Phone: Payers Date Payer Category Payer Self-pay [id number] 2020 Private Health Insurance [employer] MEDICARE SUPPLEMENT [id number] 2020-Present [phone] [address] [address] [place] [address] Indemnity [id number] 2020 Private Health Insurance [id number] 2015 Medicare MEDICARE MEDICAR E A AND B [id number] 2015-Present [phone] [address] [address] [place] [address] Medicare [id number] 2015 Medicare [id number]. [id number] 1959 Medicare [id number] 1959 Private Health Insurance [facility] [id number] 1950 Unknown [id number] 2.16.840.1.187129.3.579.2. 356 1950 Unknown [id number] 2.16.840.1.850507.3.579.2. 356 1950 Unknown [id number] 2.16.840.1.886444.3.579.2. 356 1950 Unknown [id number] 2.16.840.1.970573.3.579.2. 593 1950 Unknown [id number] 2.16.840.1.461458.3.579.2. 593 1950 Unknown [id number] 2.16.840.1.852909.3.579.2. 593 1950 Unknown [id number] 2.16.840.1.807753.3.579.2. 593 1950 Unknown [id number] 2.16.840.1.134809.3.579.2. 1244 1950 Unknown [id number] 2.16.840.1.490888.3.579.2. 727 1950 Unknown [id number] 2.16.840.1.078670.3.579.2. 727 1950 Unknown [id number] 2.16.840.1.436434.3.579.2. 727 1950 Unknown [id number] 2.16.840.1.236819.3.579.2. 1258 1950 Unknown [id number] 2.16.840.1.436527.3.579.2. 1258 1950 Unknown [id number] 2.16.840.1.670949.3.579.2. 1258 1950 Unknown [id number] 2.16.840.1.975760.3.579.2. 1258 1950 Unknown [id number] 2.16.840.1.706861.3.579.2. 1258 1950 Unknown [id number] 2.16.840.1.306698.3.579.2. 1258 1950 Unknown [id number] 2.16.840.1.317023.3.579.2. 1258 1950 Unknown [id number] 2.16.840.1.838044.3.579.2. 1258 1950 Unknown [id number] 2.16.840.1.032224.3.579.2. 1258 1950 Unknown [id number] 2.16.840.1.342342.3.579.2. 1258 1950 Unknown [id number] 2.16.840.1.592079.3.579.2. 1258 1950 Unknown [id number] 2.16.840.1.224958.3.579.2. 1258 1950 Unknown [id number] 2.16.840.1.208345.3.579.2. 1258 1950 Unknown [id number] 2.16.840.1.048022.3.579.2. 1258 1950 Unknown [id number] 2.16.840.1.088358.3.579.2. 125 Unknown Unknown [facility] [id number] Unknown [id number] 2.16.840.1.229732.3.579.2. 531 Social History Date Type Detail Facility Start: 05-20-2021 End: 06-23-2023 Alcohol use Alcohol use [facility] Comment on above: 4 8 oz cups of coffe e/occasional decaf coffee; Quit in 1970s; Start: 04-03-2021 End: 12-02-2023 Tobacco smoking status NHIS Ex-smoker [facility] End: 04-03-1981 History of tobacco use Current smoker [facility] End: 04-03-1981 History of tobacco use Pipe Smoker [facility] End: 04-03-1981 History of tobacco use Cigar Smoker [facility] Start: 04-03-2021 End: 12-02-2023 Tobacco use and exposure Smokeless tobacco non-user [facility] Start: 05-20-2021 End: 12-21-2023 Alcohol intake Current drinker of alcohol (finding) [facility] Start: 04-03-2021 History SDOH Alcohol Comment 2-3 times/wk [facility] Start: 1950 Sex Assigned At Not on file [facility] Start: 03-10-2021 End: 02-10-2023 Exposure to SARS-CoV-2 (event) Not sure [facility] Start: 05-20-2021 End: 06-23-2023 Sex Assigned At Male [facility] Tobacco smoking status No Smokin g Status Entered [facility] Start: 03-21-2022 Tobacco smoking status Never s moked tobacco (finding) [facility] Start: 05-11-2023 Tobacco smoking status Never [facility] End: 03-02-1969 History of tobacco use Cigarette Smoker [facility] Work Phone: Start: 02-06-2023 Alcohol Comment social [facility] Work Phone: Start: 1950 Sex Assigned At Male [facility] Do you belong to any clubs or organizations such as confucianism groups, unions, fraternal or athletic groups, or [...] Not at all [facility] (I/We) worried tylor er (my/our) food would run out before [...] 05-11-2023 Functional Status N/A [facility] 09-08-2022 Functional Status N/A [facility] 03-21-2022 Functional Status N/A [facility] 09-30-2021 Functional Status N/A [facility] Clinical Notes 06-11-2021 to 01-27-2024 Franchesca Ram, PT - 01/27/2024 9:00 AM Srinivas Ram, PT - 01/20/2024 10:00 AM Holly Ding, PT - 01/14/2024 1:00 PM Val Brewer MD - 12/21/2023 9:34 AM EDTPatient InstructionsRadiology Note Date & Type Note Facility 01-27-2024 History of Present illness Narrative Images from the original note were not included. Time In: 9:00 am Time Out: 10:00 am Supervised Time: 45 min Total Time: 60 min Visit Number: 4, Medicare Chief Complaint: M54.16 Lumbar radiculopathy M54.41: Right low back pain with right sciatica Precautions: none per patient Subjective At IE Mechanism of injury: 3-4 month history of LBP, right hip pain and R LE radiating pain, no known cause. Pain limits lifting leg into car, disturbs sleep, can cause giving way: uses a cane as needed. Pt has had similar symptoms in the past, resolved spontaneously. Current NSAID medication helping back (and stiff left knee). 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 Location of Symptoms: low back, right hip, right lateral thigh to knee Pain level today: -06/09 R hip/buttocks area pain amb into session, severe initially standing this a.m. runs down IT band area Wbing on R and standing cause exacerbation What increases symptoms: flexing hip to lift leg into car, walking, standing. Sit to stand after prolonged sitting: feels like deep ache. Riding stationary bike increases pain. What decreases symptoms: sitting when pain with standing. Pain radiates: R posterior hip, R LE Timing of pain: constant Numbness/tingling: none on right Imaging: MRI 12/31/23: Degenerative changes without central or foraminal stenosis. L2-3 with moderate disc space narrowing, posterior disc protrusion up to 2.8 mm. No spondylolisthesis. Objective Posture / Appearance: no lateral shift Lumbar AROM: flexion: WNL, no pain with repeated forward bend extension: WNL no pain L side bend: 25% limited with right LBP R side bend: WNL no pain Muscle Strength: R knee extension: 5/5 R knee flexion: 5/5 R hip flexion: pain R hip abduction: 4/5 L knee extension: 4/5 L knee flexion: 5/5 L hip flexion: 5/5 L hip abduction: 5/5 Palpation: Point tender right L5S1, right greater trochanter. R ant rotated innominate Joint Play: decreased L3, right SI Muscle length: decreased hamstrings bilaterally (45*) Special Tests: Positive SLR test bilaterally, right SHANIA. Right single knee to chest increases pain past 90* flexion. Negative hip scour bilaterally and left SHANIA. Positive femoral nerve stretch test right. 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 No sleep disturbance, pain with lifting leg in 2-3 weeks Pt able to walk, ride stationary bike for exercise without increase in pain Home program in place 0-2/10 pain with pt able to manage indep Rehab Potential: Good Plan: PT 1-2x/week x 6 weeks Treatment: manual therapy, therapeutic exercises, modalities as needed for pain and inflammation. Tolerated all well today with no increased pain reported. Min v/c required for technique today. Min pain decreased post session. Finished with Estim/MHP for further pain relief. documented in this encounter [facility] 01-20-2024 History of Present illness Narrative Time In: 9:50 am Time Out: 10:30 am Supervised Time: 25 min Total Time: 40 min Visit Number: 2, Medicare Chief Complaint: M54.16 Lumbar radiculopathy M54.41: Right low back pain with right sciatica Precautions: none per patient Subjective At IE Mechanism of injury: 3-4 month history of LBP, right hip pain and R LE radiating pain, no known cause. Pain limits lifting leg into car, disturbs sleep, can cause giving way: uses a cane as needed. Pt has had similar symptoms in the past, resolved spontaneously. Current NSAID medication helping back (and stiff left knee). 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 Location of Symptoms: low back, right hip, right lateral thigh to knee Pain level: average 5-6/10 What increases symptoms: flexing hip to lift leg into car, walking, standing. Sit to stand after prolonged sitting: feels like deep ache. Riding stationary bike increases pain. What decreases symptoms: sitting when pain with standing. Pain radiates: R posterior hip, R LE Timing of pain: constant Numbness/tingling: none on right Imaging: MRI 12/31/23: Degenerative changes without central or foraminal stenosis. L2-3 with moderate disc space narrowing, posterior disc protrusion up to 2.8 mm. No spondylolisthesis. Today: mild pain entering R buttocks/hip area into HS Objective Posture / Appearance: no lateral shift Lumbar AROM: flexion: WNL, no pain with repeated forward bend extension: WNL no pain L side bend: 25% limited with right LBP R side bend: WNL no pain Muscle Strength: R knee extension: 5/5 R knee flexion: 5/5 R hip flexion: pain R hip abduction: 4/5 L knee extension: 4/5 L knee flexion: 5/5 L hip flexion: 5/5 L hip abduction: 5/5 Palpation: Point tender right L5S1, right greater trochanter. R ant rotated innominate Joint Play: decreased L3, right SI Muscle length: decreased hamstrings bilaterally (45*) Special Tests: Positive SLR test bilaterally, right SHANIA. Right single knee to chest increases pain past 90* flexion. Negative hip scour bilaterally and left SHANIA. Positive femoral nerve stretch test right. 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: manual therapy: no need for R ant innominate rotation correction today therapeutic exercises: per paper grid ROM, flexibility, strength, core/hip strengthening x 25 min sup added multiple new exercises without issue, min soreness only with bridges, no pain with clams Modalities: CP/ESU R side low back/buttocks into lateral hip seated in chair IFC x 10 min with relief reported PT Assessment: Therapy Diagnosis: LBP, sciatica, pain decreased with manual therapy Functional Limitations: Oswestry low back questionnaire: 12/50 points, 24% impairment 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 No sleep disturbance, pain with lifting leg in 2-3 weeks Pt able to walk, ride stationary bike for exercise without increase in pain Home program in place 0-2/10 pain with pt able to manage indep Rehab Potential: Good Plan: PT 1-2x/week x 6 weeks Treatment: manual therapy, therapeutic exercises, modalities as needed for pain and inflammation. Tolerated all well today, advised to add some standing and seated flexion as well as LTRs L to HEP (may need to update handouts next session, add bridges too if they go well) documented in this encounter [facility] 01-14-2024 History of Present illness Narrative Time In: 1:05 pm Time Out: 2:00 pm Supervised Time: 55 min Total Time: 55 min Evaluation Time: 20 min Visit Number: 1, Medicare Chief Complaint: M54.16 Lumbar radiculopathy M54.41: Right low back pain with right sciatica Precautions: none per patient Subjective Mechanism of injury: 3-4 month history of LBP, right hip pain and R LE radiating pain, no known cause. Pain limits lifting leg into car, disturbs sleep, can cause giving way: uses a cane as needed. Pt has had similar symptoms in the past, resolved spontaneously. Current NSAID medication helping back (and stiff left knee). 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 Location of Symptoms: low back, right hip, right lateral thigh to knee Pain level: average 5-6/10 What increases symptoms: flexing hip to lift leg into car, walking, standing. Sit to stand after prolonged sitting: feels like deep ache. Riding stationary bike increases pain. What decreases symptoms: sitting when pain with standing. Pain radiates: R posterior hip, R LE Timing of pain: constant Numbness/tingling: none on right Imaging: MRI 12/31/23: Degenerative changes without central or foraminal stenosis. L2-3 with moderate disc space narrowing, posterior disc protrusion up to 2.8 mm. No spondylolisthesis. Objective Posture / Appearance: no lateral shift Lumbar AROM: flexion: WNL, no pain with repeated forward bend extension: WNL no pain L side bend: 25% limited with right LBP R side bend: WNL no pain Muscle Strength: R knee extension: 5/5 R knee flexion: 5/5 R hip flexion: pain R hip abduction: 4/5 L knee extension: 4/5 L knee flexion: 5/5 L hip flexion: 5/5 L hip abduction: 5/5 Palpation: Point tender right L5S1, right greater trochanter. R ant rotated innominate Joint Play: decreased L3, right SI Muscle length: decreased hamstrings bilaterally (45*) Special Tests: Positive SLR test bilaterally, right SHANIA. Right single knee to chest increases pain past 90* flexion. Negative hip scour bilaterally and left SHANIA. Positive femoral nerve stretch test right. 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 X 15 minutes of therapeutic exercises: flexion based, self innom rotation METs PT Assessment: Therapy Diagnosis: LBP, sciatica, pain decreased with manual therapy Functional Limitations: Oswestry low back questionnaire: 12/50 points, 24% impairment Shelter Goals: in 6 weeks Centralize symptoms to low back only in 2-3 weeks. No sleep disturbance, pain with lifting leg in 2-3 weeks Pt able to walk, ride stationary bike for exercise without increase in pain Home program in place 0-2/10 pain with pt able to manage indep Rehab Potential: Good Plan: PT 1-2x/week x 6 weeks Treatment: manual therapy, therapeutic exercises, modalities as needed for pain and inflammation. I hereby deem this POC medically necessary. Please sign below and fax back to the number below. Physician Signature: Date: Cosigned by Kevin Brewer MD at 01/16/2024 3:48 PM EST documented in this encounter [facility] 12-21-2023 History of Present illness Narrative Associated [...] spine wo contrast documented in this encounter [facility] 05-11-2023 Hospital Discharge instructions Patient Education 05/11/2023 [...] treatment? Where to find more information [employer] [place] [employer]: www.cancer.org [place] [employer]: www.auanet.org Contact a health care [...] provider. Document Revised: 08/12/2021 Document Reviewed: 08/12/2021 dotSyntax Patient Education 2022 [employer]. Follow Up Care 09/08/2022 12:26:22 With:CARINE DELGADO, Yin Patel, URL Address: [facility] [address], [place] [phone] When: Unknown Comments:PSA in 6 mos and f/u in 1 yr w/ repeat PSA [facility] 04-07-2023 Note HNO ID: [id number] Author: Demond BUTLER MD Service: ? Author [...] ASSESSMENT/PLAN: Prostate adenocarcinoma, initial PSA 4.3, biopsy Vader score 3 + 4 = 7 (grade group 2), clinical stage T2a, N0, M0, stage IIB [T1-T2, N0, M0, PSA <20, GG 2] (AJCC 8th ed.), s/p TRUS Random and MRI fusion biopsy. PSA remains undetectable. No postradiation related issues. Plan see patient back in one year for further postradiation follow-up. Signed by: Demond Butler MD cc: Kevin Brewer MD ([facility]) [address] [place] [address] Portions of the above note extracted and edited from previous visit as well as active information included in the EMR. [facility] 04-07-2023 Nurse Note AUA=12 documented in this encounter [facility] 04-07-2023 History of Present illness Narrative Radiation Oncology - Follow Up Note PATIENT NAME: Luis Luis PATIENT DIAGNOSIS: Prostate adenocarcinoma, initial PSA 4.3, biopsy Vader score 3 + 4 = 7 (grade [...] ASSESSMENT/PLAN: Prostate adenocarcinoma, initial PSA 4.3, biopsy Vader score 3 + 4 = 7 (grade group 2), clinical stage T2a, N0, M0, stage IIB [T1-T2, N0, M0, PSA <20, GG 2] (AJCC 8th ed.), s/p TRUS Random and MRI fusion biopsy. PSA remains undetectable. No postradiation related issues. Plan see patient back in one year for further postradiation follow-up. Signed by: Demond Butler MD cc: Kevin Brewer MD ([facility]) [address] [place] [address] Portions of the above note extracted and edited from previous visit as well as active information included in the EMR. documented in this encounter [facility] 02-10-2023 History of Present illness Narrative Subjective [...] in office today documented in this encounter [facility] Work Phone: 02-10-2023 Instructions Felix Caal [...] of your visit. documented in this encounter [facility] Work Phone: 09-30-2022 Note HNO ID: [id number] Author: Demond Butler MD Service: ? Author Type: Physician Type: Progress Notes Filed: 10/03/2022 8:14 AM Note Text: Radiation Oncology - Follow Up Note PATIENT NAME: Luis Luis PATIENT DIAGNOSIS: Prostate adenocarcinoma, initial PSA 4.3, biopsy Vader score 3 + 4 = 7 (grade [...] ASSESSMENT/PLAN: Prostate adenocarcinoma, initial PSA 4.3, biopsy Yc score 3 + 4 = 7 (grade group 2), clinical stage T2a, N0, M0, stage IIB [T1-T2, N0, M0, PSA <20, GG 2] (AJCC 8th ed.), s/p TRUS Random and MRI fusion biopsy. PSA remains undetectable. No postradiation related issues. Plan see patient back in 6 months for further postradiation follow-up. Signed by: Demond Butler MD cc: Kevin Brewer MD ([facility]) [address] [place] [id number] Portions of the above note extracted and edited from previous visit as well as active information included in the EMR. [facility] 09-30-2022 History of Present illness Narrative Radiation Oncology - Follow Up Note PATIENT NAME: Luis Luis PATIENT DIAGNOSIS: Prostate adenocarcinoma, initial PSA 4.3, biopsy Vader score 3 + 4 = 7 (grade [...] Demond Butler MD cc: Kevin Brewer MD ([facility]) [address] [place] [address] Portions of the above note extracted and edited from previous visit as well as active information included in the EMR. documented in this encounter [facility] 09-30-2022 Nurse Note AUA 14 Naida Jacobo RN documented in this encounter [facility] 09-08-2022 Hospital Discharge instructions Patient Education 09/08/2022 [...] urethra. Follow these instructions at home: Take hazb-kxe-ywzhvux and prescription medicines only as told by [...] provider. Document Revised: 09/04/2021 Document Reviewed: 09/04/2021 dotSyntax Patient Education 2022 [employer]. Follow Up Care 03/21/2022 12:44:25 With:CARINE DELGADO, ANITA Kaur Address: [facility] [address] , [place] [phone] When:Within 8 Month(s) Comments:PSA [facility] 04-01-2022 History of Present illness Narrative [...] Yancy Oneill APRN.ANNA documented in this encounter [facility] 04-01-2022 History of Present illness Narrative Radiation Oncology - Follow Up Note PATIENT NAME: Luis Luis PATIENT DIAGNOSIS: Prostate adenocarcinoma, initial PSA 4.3, biopsy Vader score 3 + 4 = 7 (grade [...] ASSESSMENT/PLAN: Prostate adenocarcinoma, initial PSA 4.3, biopsy Vader score 3 + 4 = 7 (grade [...] Demond Butler MD cc: Kevin Brewer MD ([facility]) [address] [place] [address] Portions of the above note extracted and edited from previous visit as well as active information included in the EMR. documented in this encounter [facility] 04-01-2022 Nurse Note AUA 14 Naida Jacobo RN documented in this encounter [facility] 03-21-2022 Hospital Discharge instructions Patient Education 03/21/2022 [...] who: Are older than age 65. Are -[place]. Are obese. Have a family history of [...] cells. Follow these instructions at home: Take uzdh-mbj-jcttuqw and prescription medicines only as told by [...] 02/16/2006 Document Revised: 01/29/2018 Document Reviewed: 10/27/2016 dotSyntax Patient Education 2020 [employer]. Follow Up Care 09/30/2021 11:58:37 With:CARINE DELGADO, Yin Patel, URL Address: [address] [place] [phone]- When: Unknown Comments:6 mos w/ PSA [facility] 02-06-2022 Miscellaneous Notes Patient has been rescheduled & notified of appointment. Monica Rodríguez Pt has PSA scheduled with Dr Hawk in March and would like to postpone his follow up visit with Dr Butler until after that is done. PSS- please call pt and reschedule. He will be awaiting your call. Naida Jacobo RN documented in this encounter [facility] 09-30-2021 Hospital Discharge instructions Patient Education 09/30/2021 [...] urethra. Follow these instructions at home: Take jfkw-mlg-bnthmyj and prescription medicines only as told by [...] 02/16/2006 Document Revised: 01/11/2019 Document Reviewed: 03/23/2017 dotSyntax Patient Education 2020 [employer]. Follow Up Care 04/01/2021 13:09:22 With:CARINE DELGADO, Yin Patel, URL Address: [facility] [address] [place] [phone] When:Within 6 Month(s) Comments:w/ PSA [facility] 08-14-2021 Nurse Note AUA 18 Naida Jacobo RN documented in this encounter [facility] 08-14-2021 History of Present illness Narrative Radiation [...] ASSESSMENT/PLAN: Prostate adenocarcinoma, initial PSA 4.3, biopsy Vader score 3 + 4 = 7 (grade [...] Demond Butler MD cc: Kevin Brewer MD ([facility]) [address] [place] [address] documented in this encounter [facility] 08-09-2021 Hospital Discharge instructions Patient Education 08/09/2021 [...] including vitamins, herbs, eye drops, creams, and fyjc-ynw-pyacwab medicines. Any problems you or family members [...] 07/27/2006 Document Revised: 01/29/2018 Document Reviewed: 02/25/2017 [employer] Patient Education 2020 [employer]. Follow Up Care 07/04/2021 11:13:01 With:CARINE DELGADO, Yin Patel, URL Address: [facility] [address], [place] [phone] When: Unknown [facility] 08-05-2021 Miscellaneous Notes Ok to resched Luis called in stating he tested positive for COVID-19 on 08/03/21 and his symptoms started , 08/01/21. He has a scheduled 6wk post implant follow up on 08/08/21. He will call us later in the week to possibly reschedule his follow up. Kelly Guo LPN documented in this encounter [facility] 07-25-2021 History of Present illness Narrative Patient: Luis Luis Date:07/25/2021 [facility] Department of Radiation Oncology [facility] RADIATION ONCOLOGY POST SEED IMPLANT SIMULATION [...] M.D. 23:26 PM documented in this encounter [facility] 06-27-2021 History of Present illness Narrative Date: 06/27/21 Facility: [facility] Procedure: prostate transperineal brachytherapy implant Sources: [id number] [...] Butler MD (Signed electronically to expedite mailing) [place] documented in this encounter [facility] 06-11-2021 History of Present illness Narrative UNIVERSAL [...] Demond Butler MD documented in this encounter [facility] 06-11-2021 History of Present illness Narrative LUIS LUIS [id number] 06/11/2021 [facility] Department of Radiation Oncology [facility] RADIATION ONCOLOGY SIMULATION NOTE DATE OF SIMULATION: 06/11/2021 MACHINE: [employer] Direct Focus 500 Diagnosis: 185 (Prostate Gland) AREA:Prostate PATIENT POSITION: Supine CONTRAST: None PROTOCOL: None CONCURRENT THERAPY: None FIXATION DEVICE: UTS Stabilization device by [employer]. PROCEDURE: Patient was simulated in exaggerated dorsal lithotomy position. Serial images of the prostate were acquired using TRUS and reconstructed in 3D space. These images were imported into [employer] Prostate planning system where a plan was generated. ASSESSMENT/PLAN: Patient tolerated simulation procedure well. Electronically Signed Chavez Butler M.D. / LAURA 25:05 PM documented in this encounter [facility] Evaluation + Plan note Future Appointments Appointment Date:08/05/2021 08:45:00 AM Scheduled Provider:Yin HAWK MD Location:[facility] Appointment Type:URO Office Visit Appointment Date:09/30/2021 10:30:00 AM Scheduled Provider:Yin HAWK MD [facility] Type:[facility]O Office Visit Future Scheduled TestsPT & PTT 03/05/21BUN 03/05/21Creatinine 03/05/21Electrolyte Panel 03/05/21CBC w/ Auto Diff 03/05/21XR Chest 2 Views 03/05/21 [facility] Evaluation + Plan note Future Appointments Appointment Date:09/30/2021 10:30:00 AM Scheduled Provider:Yin HAWK MD Location:[facility] Appointment Type:URO Office Visit Diagnostic Tests PendingPSA Total 08/09/21 Future Scheduled TestsPT & PTT 03/05/21BUN 03/05/21Creatinine 03/05/21Electrolyte Panel 03/05/21CBC w/ Auto Diff 03/05/21XR Chest 2 Views 03/05/21 [facility] Evaluation + Plan note Future Appointments Appointment Date:03/21/2022 11:00:00 AM Scheduled Provider:Yin HAWK MD Location:[facility] Appointment Type:URO Office Visit Diagnostic Tests PendingPSA Total 09/30/21 Future Scheduled TestsPT & PTT 03/05/21BUN 03/05/21Creatinine 03/05/21Electrolyte Panel 03/05/21CBC w/ Auto Diff 03/05/21XR Chest 2 Views 03/05/21 [facility] Evaluation + Plan note Future Appointments Appointment Date:09/08/2022 10:15:00 AM Scheduled Provider:Yin HAWK MD Location:[facility] Appointment Type:URO Office Visit Diagnostic Tests PendingPSA Total 06/30/22 [facility] Evaluation + Plan note Future Appointments Appointment Date:05/11/2023 09:45:00 AM Scheduled Provider:[facility]in HAWK MD [facility] Type:[facility]O Office Visit Diagnostic Tests PendingPSA Total 09/08/22 [facility] Evaluation + Plan note Future Appointments Appointment Date:05/13/2024 09:45:00 AM Scheduled Provider:Yin HAWK MD Location:[facility] Appointment Type:URO Office Visit Diagnostic Tests PendingPSA Total 05/11/23 [facility] Evaluation note Diagnosis Malignant neoplasm of prostate (HCC)- Primary Malignant neoplasm of prostate documented in this encounter [facility] note* Diagnosis Malignant neoplasm of prostate (HCC)- Primary Malignant neoplasm of prostate [facility] Diagnosis Malignant neoplasm of prostate (HCC)- Primary Malignant neoplasm of prostate [facility] Diagnosis Prostate cancer (HCC) Malignant neoplasm of prostate [facility] Diagnosis Malignant neoplasm of prostate (HCC)- Primary Malignant neoplasm of prostate [facility] Diagnosis Malignant neoplasm of prostate (HCC)- Primary Malignant neoplasm of prostate [facility] Diagnosis Paroxysmal SVT (supraventricular tachycardia)- Primary Primary hypertension Unspecified essential hypertension Mixed hyperlipidemia Morbid obesity with BMI of 40.0-44.9, adult (CMS/HCC) Bifascicular block Other bilateral bundle branch block documented in this encounter [facility] Work Phone: Evaluation note* Diagnosis Malignant neoplasm of prostate (HCC)- Primary Malignant neoplasm of prostate [facility] noteNo assessment information [facility]* Diagnosis Morbid obesity due to excess calories (CMS/HCC)- Primary RENAE on CPAP Hypoxia Hypoxemia Snoring Other dyspnea and respiratory abnormality Daytime hypersomnolence documented in this encounter [facility] Healthcare[facility]* Diagnosis Essential hypertension, benign (CMS/HCC)- Primary [...] specified cardiac dysrhythmias documented in this encounter [facility] Healthcare[facility]* Diagnosis Essential hypertension, benign (CMS/HCC)- Primary [...] (supraventricular tachycardia) (CMS/HCC) Other specified cardiac dysrhythmias Lumbar radiculopathy- Primary Thoracic or lumbosacral neuritis or radiculitis, unspecified Chronic right-sided low back pain with right-sided sciatica documented in this encounter [facility] HealthcareEvaluation note* Diagnosis Essential hypertension, benign (CMS/HCC)- Primary [...] (supraventricular tachycardia) (CMS/HCC) Other specified cardiac dysrhythmias Lumbar radiculopathy- Primary Thoracic or lumbosacral neuritis or radiculitis, unspecified Chronic right-sided low back pain with right-sided sciatica documented in this encounter [facility] HealthcareEvaluation note* Diagnosis Essential hypertension, benign (CMS/HCC)- Primary Essential hypertension, benign Bilateral leg edema Edema SOB (shortness of breath) on exertion Shortness of breath BPH without urinary obstruction Gastroesophageal reflux disease without esophagitis Esophageal reflux RENAE on CPAP SVT (supraventricular tachycardia) ([facility]/HCC) Other specified cardiac dysrhythmias Encounter for long-term (current) use of medications Encounter for long-term (current) use of other medications Colon cancer screening Special screening for malignant neoplasms, colon Dyslipidemia ([facility]/HCC) Other and unspecified hyperlipidemia Morbid obesity due to excess calories ([facility]/HCC) Essential hypertension, benign ([facility]/HCC)- Primary Essential hypertension, benign Lumbar radiculopathy Thoracic or lumbosacral neuritis or radiculitis, unspecified Chronic right-sided low back pain with right-sided sciatica Bilateral leg edema Edema SVT (supraventricular tachycardia) ([facility]) Other specified cardiac dysrhythmias Lumbar radiculopathy Thoracic or lumbosacral neuritis or radiculitis, unspecified Chronic right-sided low back pain with right-sided sciatica documented in this encounter [facility]* Diagnosis Essential hypertension, benign ([facility]/HCC)- Primary Essential hypertension, benign Bilateral leg edema Edema SOB (shortness of breath) on exertion Shortness of breath BPH without urinary obstruction Gastroesophageal reflux disease without esophagitis Esophageal reflux RENAE on CPAP SVT (supraventricular tachycardia) ([facility]) Other specified cardiac dysrhythmias Encounter for long-term (current) use of medications Encounter for long-term (current) use of other medications Colon cancer screening Special screening for malignant neoplasms, colon Dyslipidemia ([facility]) Other and unspecified hyperlipidemia Morbid obesity due to excess calories ([facility]) Essential hypertension, benign ([facility])- Primary Essential hypertension, benign Lumbar radiculopathy Thoracic or lumbosacral neuritis or radiculitis, unspecified Chronic right-sided low back pain with right-sided sciatica Bilateral leg edema Edema SVT (supraventricular tachycardia) ([facility]) Other specified cardiac dysrhythmias Lumbar radiculopathy- Primary Thoracic or lumbosacral neuritis or radiculitis, unspecified Chronic right-sided low back pain with right-sided sciatica documented in this encounter [facility]* Diagnosis Essential hypertension, benign ([facility]/HCC)- Primary Essential hypertension, benign Bilateral leg edema [...] (supraventricular tachycardia) (CMS/HCC) Other specified cardiac dysrhythmias Lumbar radiculopathy- Primary Thoracic or lumbosacral neuritis or radiculitis, unspecified Chronic right-sided low back pain with right-sided sciatica documented in this encounter [facility]* Diagnosis Essential hypertension, benign (CMS/HCC)- Primary Essential hypertension, benign Bilateral leg edema Edema SOB (shortness of breath) on exertion Shortness of breath BPH without urinary obstruction Gastroesophageal reflux disease without esophagitis Esophageal reflux RENAE on CPAP SVT (supraventricular tachycardia) ([facility]/HCC) Other specified cardiac dysrhythmias Encounter for long-term (current) use of medications Encounter for long-term (current) use of other medications Colon cancer screening Special screening for malignant neoplasms, colon Dyslipidemia ([facility]/HCC) Other and unspecified hyperlipidemia Morbid obesity due to excess calories ([facility]/HCC) Essential hypertension, benign (CMS/HCC)- Primary Essential hypertension, benign Lumbar radiculopathy Thoracic or lumbosacral neuritis or radiculitis, unspecified Chronic right-sided low back pain with right-sided sciatica Bilateral leg edema Edema SVT (supraventricular tachycardia) ([facility]/HCC) Other specified cardiac dysrhythmias Lumbar radiculopathy- Primary Thoracic or lumbosacral neuritis or radiculitis, unspecified Chronic right-sided low back pain with right-sided sciatica documented in this encounter [facility]* Diagnosis Essential hypertension, benign ([facility]/HCC)- Primary Essential hypertension, benign Bilateral leg edema [...] (supraventricular tachycardia) (CMS/HCC) Other specified cardiac dysrhythmias Lumbar radiculopathy- Primary Thoracic or lumbosacral neuritis or radiculitis, unspecified Chronic right-sided low back pain with right-sided sciatica documented in this encounter [facility]* Diagnosis Essential hypertension, benign (CMS/HCC)- Primary [...] (supraventricular tachycardia) (CMS/HCC) Other specified cardiac dysrhythmias Lumbar radiculopathy- Primary Thoracic or lumbosacral neuritis or radiculitis, unspecified Chronic right-sided low back pain with right-sided sciatica documented in this encounter [facility] [...] diet lifestyle modific ation exercise and weight loss.[facility] 250 DO Work Phone: History of Present illness Narrative* [...] merits of diet exercise and weight loss. [facility] 250 DO Work Phone: Hospital course Narrative No data available for this section [facility] Hospital Discharge instructions No data available for this section [facility] Progress note No data available for this section [facility] visit Narrative* Rehabilitation - Outpatient (Routine) - Authorized Specialty Diagnoses / Procedures Referred By Myrtle romeo Referred To Contact Physical Therapy Diagnoses Lumbar radiculopathy Chronic right-sided low back pain with right-sided sciatica Procedures NC OFFICE/OUTPATIENT NEW HIGH MDM 60 MINUTES Kevin Brewer MD [address] [place] [address] Phone: tel: fax: Franchesca Ram, PT [address] [place] [address] Phone: tel: fax: Referral ID Status Reason Start Date Expiration Date Visits Requested Visits Authorized [id number] Authorized Specialty Services Required 01/06/2024 07/04/2024 20 20 [facility] Narrative* Rehabilitation - Outpatient (Routine) - Authorized Specialty Diagnoses / Procedures Referred By Myrtle romeo Referred To Contact Physical Therapy Diagnoses Lumbar radiculopathy Chronic right-sided low back pain with right-sided sciatica Procedures NC OFFICE/OUTPATIENT NEW HIGH [facility] 60 MINUTES Kevin Brewer MD [address] [place] [address] Phone: tel: fax: Franchesca Ram, PT [address] [place] [address] Phone: tel: fax: Referral ID Status Reason Start Date Expiration Date Visits Requested Visits Authorized [id number] Authorized Specialty Services Required 01/06/2024 07/04/2024 20 30 [facility] - [facility]patient (Routine) - Authorized Specialty Diagnoses / Procedures Referred By Myrtle romeo Referred To Contact Physical Therapy Diagnoses Lumbar radiculopathy Chronic right-sided low back pain with right-sided sciatica Procedures NC OFFICE/OUTPATIENT NEW HIGH [facility] 60 MINUTES Kevin Brewer MD [address] [place] [address] Phone: tel: fax: Franchesca Ram, PT [address] [place] [address] Phone: tel: fax: Referral ID Status Reason Start Date Expiration Date Visits Requested Visits Authorized [id number] Authorized Specialty Services Required 01/06/2024 03/01/2024 20 30 [facility] Summary Purpose Family History No Family History [...] Referral Specialty Diagnoses / Procedures Referred By Contac t Referred To Contact Diagnoses Paroxysmal SVT (supraventricular tachycardia) Procedures ECG 12 Lead Parveen Santo MD [address] [place] [address] 2, [address] [address] Referral ID Status Reason Start Date Expiration Date V isits Requested Visits Authorized [id number] Pending Review 02/10/2023 02/10/2024 1 1 Specialty Diagnoses / Procedures Referred By Contac t Referred To Contact Cardiology Diagnoses Paroxysmal SVT (supraventricular tachycardia) Procedures Follow Up In Cardiology Parveen Santo MD [address] [facility] 2, [address] [address] Parveen Santo MD [address] [place] [address] 2, [address] [address] Referral ID Status Reason Start Date Expiration Date V isits Requested Visits Authorized [id number] Authorized 02/10/2023 02/10/2024 1 1 Additional Source Comments (unrecognized sect ion and content) No Status Records FoundNo Status Records FoundNo Status Records FoundNo Status Records FoundNo Status Records FoundNo Status Records FoundNo Status Records FoundNo Status Records FoundNo Status Records Found INFORMATION SOURCE (unrecogn ized section and content) DATE CREATED AUTHOR 12/03/2019 [facility] DATE CREATED AUTHOR AUTHOR'S ORGANIZ ATION 02/12/2022 [facility] DATE CREATED AUTHOR AUTHOR'S ORGANIZ ATION 02/12/2022 [facility] DATE CREATED AUTHOR AUTHOR'S ORGANIZ ATION 07/10/2022 [facility] DATE CREATED AUTHOR AUTHOR'S ORGANIZ ATION 02/13/2023 [facility] DATE CREATED AUTHOR AUTHOR'S ORGANIZ ATION 04/17/2023 [facility] DATE CREATED AUTHOR AUTHOR'S ORGANIZ ATION 05/13/2023 [facility] DATE CREATED AUTHOR AUTHOR'S ORGANIZ ATION 11/22/2023 [facility] DATE CREATED AUTHOR AUTHOR'S ORGANIZ ATION 02/16/2024 [facility] EPIC Source Comments (unrecognize d section and content) In the event this informatio n is protected by the Federal Confidentiality of Alcohol and Drug Abuse Patient Records regulations: The Federal rules restrict any use of the information to criminally investigate or prosecute any alcohol or drug abuse patient.[facility] the event this information is protected by the Federal Confidentiality of Alcohol and Drug Abuse Patient Records regulations: The Federal rules restrict any use of the information to criminally investigate or prosecute any alcohol or drug abuse patient.[facility] the event this information is protected by the Federal Confidentiality of Alcohol and Drug Abuse Patient Records regulations: The Federal rules restrict any use of the information to criminally investigate or prosecute any alcohol or drug abuse patient.[facility] the event this information is protected by the Federal Confidentiality of Alcohol and Drug Abuse Patient Records regulations: The Federal rules restrict any use of the information to criminally investigate or prosecute any alcohol or drug abuse patient.[facility] the event this information is protected by the Federal Confidentiality of Alcohol and Drug Abuse Patient Records regulations: The Federal rules restrict any use of the information to criminally investigate or prosecute any alcohol or drug abuse patient.[facility] the event this information is protected by the Federal Confidentiality of Alcohol and Drug Abuse Patient Records regulations: The Federal rules restrict any use of the information to criminally investigate or prosecute any alcohol or drug abuse patient.[facility] the event this information is protected by the Federal Confidentiality of Alcohol and Drug Abuse Patient Records regulations: The Federal rules restrict any use of the information to criminally investigate or prosecute any alcohol or drug abuse patient.[facility] the event this information is protected by the Federal Confidentiality of Alcohol and Drug Abuse Patient Records regulations: The Federal rules restrict any use of the information to criminally investigate or prosecute any alcohol or drug abuse patient.[facility] the event this information is protected by the Federal Confidentiality of Alcohol and Drug Abuse Patient Records regulations: The Federal rules restrict any use of the information to criminally investigate or prosecute any alcohol or drug abuse patient.[facility] the event this information is protected by the Federal Confidentiality of Alcohol and Drug Abuse Patient Records regulations: The Federal rules restrict any use of the information to criminally investigate or prosecute any alcohol or drug abuse patient.[facility] the event this information is protected by the Federal Confidentiality of Alcohol and Drug Abuse Patient Records regulations: The Federal rules restrict any use of the information to criminally investigate or prosecute any alcohol or drug abuse patient.[facility] the event this information is protected by the Federal Confidentiality of Alcohol and Drug Abuse Patient Records regulations: The Federal rules restrict any use of the information to criminally investigate or prosecute any alcohol or drug abuse patient.[facility] the event this information is protected by the Federal Confidentiality of Alcohol and Drug Abuse Patient Records regulations: The Federal rules restrict any use of the information to criminally investigate or prosecute any alcohol or drug abuse patient.[facility] Care Teams (unrecognized sec tion and content) Record Center Specialist Relationship Specialty Start Date End Date Kevin Brewer [address] [place] [address] PCP - General Family Practice 03/22/21 Yin Hawk MD [address] [place] [address] Referring Urology 03/22/21 Record Center Specialist Relationship Specialty Start Date End Date Kevin Brewer [address] [place] [address] PCP - General Family Practice 03/22/21 Yin Hawk MD [address] [place] [address] Referring Urology 03/22/21 Record Center Specialist Relationship Specialty Start Date End Date Kevin Brewer [address] [place] [address] PCP - General Family Practice 03/22/21 Yin Hawk MD [address] [place] [address] Referring Urology 03/22/21 Record Center Specialist Relationship Specialty Start Date End Date Kevin Brewer [address] [place] [address] PCP - General Family Practice 03/22/21 Yin Hawk MD [address] [place] [address] Referring Urology 03/22/21 Record Center Specialist Relationship Specialty Start Date End Date Kevin Brewer [address] [place] [address] PCP - General Family Practice 03/22/21 Yin Hawk MD [address] [place] [address] Referring Urology 03/22/21 Record Center Specialist Relationship Specialty Start Date End Date Kevin Brewer [address] [place] [address] PCP - General Family Medicine 03/22/21 Yin Hawk MD [address] [place] [address] Referring Urology 03/22/21 Record Center Specialist Relationship Specialty Start Date End Date Kevin Brewer [address] [place] [address] PCP - General Family Medicine 03/22/21 Yin Hawk MD [address] [place] [address] Referring Urology 03/22/21 Record Center Specialist Relationship Specialty Start Date End Date Daniella Kevin Scott [address] [place] [address] PCP - General Family Medicine 03/22/21 Yin Hawk MD [address] [place] [address] Referring Urology 03/22/21 Record Center Specialist Relationship Specialty Start Date End Date DaniellaKevin [address] [place] [address] PCP - General Family Medicine 03/22/21 Yin Hawk MD [address] [place] [address] Referring Urology 03/22/21 Record Center Specialist Relationship Specialty Start Date End Date Kevin Brewer MD [address] [place] [address] PCP - General Family Medicine 02/05/23 Record Center Specialist Relationship Specialty Start Date End Date Albaniajesus Kevin Scott [address] [place] [address] PCP - General Family Medicine 03/22/21 Yin Hawk MD [address] [place] [address] Referring Urology 03/22/21 Team Status: Inactive Member Role Status Dates Franchesca Nj DO Attending Provider Active Star t: November 17, 2023 End: November 17, 2023 Record Center Specialist Relationship Specialty Start Date End Date Albaniaclaudetteamanda Kevin Scott [address] [place] [address] PCP - General Family Medicine 03/22/21 Yin Hawk MD [address] [place] [address] Referring Urology 03/22/21 Record Center Specialist Relationship Specialty Start Date End Date Kevin Brewer [address] [place], [place] [id number] PCP - General Family Medicine 03/22/21 Yin Hawk MD [address] [place] [address] Referring Urology 03/22/21 Record Center Specialist Relationship Specialty Start Date End Date Kevin Brewer MD [address] [place] [address] PCP - General Family Medicine 06/29/23 Record Center Specialist Relationship Specialty Start Date End Date Kevin Brewer MD [address] [place] [address] PCP - General Family Medicine 06/29/23 Record Center Specialist Relationship Specialty Start Date End Date Kevin Brewer MD [address] [place] [address] PCP - General Family Medicine 06/29/23 Record Center Specialist Relationship Specialty Start Date End Date Kevin Brewer MD [address] [place] [address] PCP - General Family Medicine 06/29/23 Record Center Specialist Relationship Specialty Start Date End Date Kevin Brewer MD [address] [place] [address] PCP - General Family Medicine 06/29/23 Record Center Specialist Relationship Specialty Start Date End Date Kevin Brewer MD [address] [place] [address] PCP - General Family Medicine 06/29/23 Record Center Specialist Relationship Specialty Start Date End Date Kevin Brewer MD [address] [place] [address] PCP - General Family Medicine 06/29/23 Record Center Specialist Relationship Specialty Start Date End Date Kevin Brewer MD [address] [place] [address] PCP - General Family Medicine 06/29/23 Record Center Specialist Relationship Specialty Start Date End Date Kevin Brewer MD [address] [place] [address] PCP - General Family Medicine 06/29/23 Record Center Specialist Relationship Specialty Start Date End Date Kevin Brewer MD [address] [place] [address] PCP - General Family Medicine 06/29/23 Record Center Specialist Relationship Specialty Start Date End Date Kevin Brewer MD [address] [place] [address] PCP - General Family Medicine 06/29/23 Record Center Specialist Relationship Specialty Start Date End Date Kevin Brewer MD [address] [place] [address] PCP - General Family Medicine 06/29/23 Record Center Specialist Relationship Specialty Start Date End Date Kevin Brewer MD [address] [place] [address] PCP - General Family Medicine 06/29/23 Record Center Specialist Relationship Specialty Start Date End Date Kevin Brewer MD [address] [place] [address] PCP - General Family Medicine 06/29/23 Record Center Specialist Relationship Specialty Start Date End Date Kevin Brewer MD [address] [place] [address] PCP - General Family Medicine 06/29/23 Record Center Specialist Relationship Specialty Start Date End Date Kevin Brewer MD [address] [place] [address] PCP - General Family Medicine 06/29/23 Record Center Specialist Relationship Specialty Start Date End Date Kevin Brewer MD [address] [place] [address] PCP - General Family Medicine 06/29/23 Record Center Specialist Relationship Specialty Start Date End Date Kevin Brewer MD [address] [place] [address] PCP - General Family Medicine 06/29/23 Reason for Visit (unrecogniz ed section and content) Specialty Diagnoses / Procedures Referred By Contac t Referred To Contact Radiation Oncology / RADIATION ONCOLOGY Diagnoses Malignant neoplasm of prostate Seed Implant at [facility] Procedures SEED IMPLANT Demond Butler MD [address] [place] [address] [place] [address] Demond Butler MD [address] [place] [address] [place] [address] Referral ID Status Reason Start Date Expiration Date V isits Requested Visits Authorized [id number] Authorized 06/27/2021 03/01/2022 99 99 Reason Comments FYI-No Action Needed Covid19 Concern Reason Comments Prostate Cancer Reason Comments Future Appointment Reason Comments Annual Exam Specialty Diagnoses / Procedures Referred By Contac t Referred To Contact Diagnoses Paroxysmal SVT (supraventricular tachycardia) Procedures ECG 12 Lead Parveen Santo MD [address] [facility] 2, [facility] [address] [place] [address] Referral ID Status Reason Start Date Expiration Date V isits Requested Visits Authorized [id number] Pending Review 02/10/2023 02/10/2024 1 1 Specialty Diagnoses / Procedures Referred By Contac t Referred To Contact Radiation Oncology / RADIATION ONCOLOGY Diagnoses Malignant neoplasm of prostate SIM/JADA/Pelvis Procedures SIMULATION BREONNA IMRT 25 fractions Demond Butler MD [address] [place] [address] [place] [address] Demond Butler MD [address] [place] [address] [place] [address] Referral ID Status Reason Start Date Expiration Date Visits Re quested Visits Authorized [id number] Closed 04/09/2021 03/01/2022 99 99 Reason Comments [...] BE BASED ON THE PRIMARY CLINICAL RECORDS. [facility]. provides no warranty or guarantee of the accuracy or completeness of information in this document.
== END 2024-02-18 10:01 | disposition home or self-care (01) ==
LOC: RAD 10:00
PROVIDERS: PCP Family Medicine; Visit Provider Family Medicine
DX: M25.551 Pain in right hip (principal); G89.29 Other chronic pain
CPT/HCPCS: 73502

== ENCOUNTER 2024-03-08 10:40 | Outpatient (OUT) | payer MEDICARE, SELFPAY ==
--- NOTE | 2024-03-08 | CONS_ITS ---
CONSULTATION DATE: 03/08/2024 TO: Kevin Olivo M.D. HISTORY: Patient presented today complaining of five month history of progressive pain in his right hip area, described as between 3-7/10 pain, sharp in character, which increased with activities such as standing, walking and performing transitioning maneuvers. He feels most comfortable in the semi- recumbent position. Denies any change in bowel and bladder habits or new sensorimotor changes in the lower extremities. CURRENT MEDICATION: Includes Tylenol p.r.n., takes two pills daily up to b.i.d. p.r.n. His BERNA on today?s visit is 30%. EXAM: Notable for patient having no clinical radiculopathy or myelopathy involving the lower extremities. Patient had positive right sided FABERs sign and a fair amount of myalgia and spasm of the right gluteus maximum, gluteus medius and a moderate amount of spasm of the right adductor. IMPRESSION: Our impression is patient with chronic pain secondary to osteoporosis, degenerative joint disease of the right hip. RECOMMENDATIONS: I recommend a right hip joint injection under fluoroscopic guidance. Will place him on baclofen 10 mg pills, half a pill to one pill at h.s. as tolerated. Went over the details of the procedure with the patient. All his questions were answered. He agrees to proceed with the outlined plan. As part of providing excellent, safe, comprehensive care, the following was completed at our patient's visit: 1. A medication reconciliation and review to ensure accurate knowledge of current/active medications, including asking our patients to inform us about any [id number] medications or herbal remedies/nutritional supplements/alternative remedies. 2. A review to specifically ensure our patients have had annual screening for: elevated body mass index (BMI, see intake chart for exact total), tobacco use, screening for depression, and screening for unhealthy alcohol use. When screening is concerning, patients are provided with education and the specific recommendation to discuss the concerning health issue and treatment options with their primary care provider. SHAHLA
== END 2024-03-08 10:41 | disposition home or self-care (01) ==
LOC: PM 10:42
PROVIDERS: PCP Family Medicine; Visit Provider Anesthesiology Pain Medicine
DX: M16.11 Unilateral primary osteoarthritis, right hip (principal); M81.0 Age-related osteoporosis without current pathological fracture
CPT/HCPCS: G0463

== ENCOUNTER 2024-03-14 08:57 | Day surgery (SDC) | payer MEDICARE, SELFPAY ==
--- OUTSIDE RECORDS SUMMARY | 2024-03-14 09:18 | XMS_ITS | CCD ---
Author Organization [facility] Care Team Providers Care History Instructor Name Role Phone Kevin Brewer Unavailable Unavailable Unavailable Unavailable Unavailable Kevin Brewer Primary Care Provider [phone] Yin Hawk MD Unavailable KEVIN BREWER Primary [...] Primary Care Provider Yin Hawk MD Unavailable DR KEVIN BREWER Primary Care Unavailable NADEREAmanda, DR KEIVN Scott Admitting Unavailable NADERER, DR KEVIN Scott [...] Unavailable Kevin Brewer MD Primary Care Provider Demond BUTLER Attending Unavailable KEVIN BREWER Primary Care Unavailable Demond BUTLER Referring Unavailable KEVIN BREWER Primary Care Unavailable Demond BUTLER Referring Unavailable Demond BUTLER Attending Unavailable Yin HAWK Attending Unavailable Yin HAWK Attending Unavailable Yin HAWK Attending Unavailable DO Franchesca Nj Attending Provider Franchesca Nj Attending Unavailable Franchesca Nj Admitting Unavailable Kevin Brewer Primary Care Provider [phone] Yin Hawk MD Unavailable [phone] Kevin Brewer MD Primary Care Provider KEVIN BREWER Attending Unavailable FRANCHESCA NJ Attending Unavailable FRANCHESCA NJ Attending Unavailable NAIDA HOBSON Attending Unavailable NADERER, KEVIN Attending Unavailable TANJA DING Attending Unavailable NADERER, KEVIN Referring Unavailable MARINAFRANCHESCA PULIDO Attending Unavailable NADERER, KEVIN Referring Unavailable PULIDO, DAYNA Attending Unavailable NADERER, KEVIN Referring Unavailable PULIDO, DAYNA Attending Unavailable NADERER, KEVIN Referring Unavailable FRANCHESCA GRAY Attending Unavailable NADERER, KEVIN Referring Unavailable PULIDO, DAYNA Attending Unavailable NADERER, KEVIN Referring Unavailable CHERYL TAMAYO Attending Unavailable NADERER, KEVIN Referring Unavailable PULIDO, DAYNA Attending Unavailable NADERER, KEVIN Referring Unavailable PULIDO, DAYNA Attending Unavailable NADERER, KEVIN Referring Unavailable PULIDO, DAYNA Attending Unavailable NADERER, KEVIN Referring Unavailable PULIDO, DAYNA Attending Unavailable NADERER, KEVIN Referring Unavailable NADERER, KEVIN Attending Unavailable PULIDO, DAYNA Attending Unavailable NADERER, KEVIN Referring Unavailable MARY TAM Attending Unavailable PARVEEN SANTO Referring Unavailable KEVIN BREWER Primary Care Unavailabl e Allergies Allergy Classification Reported Allergen(s) Allergy Type Date of Onset Reaction(s) Facility (1 source) tamsulosin Drug Allergy 05-31-2021 [facility] Repository Medications Current Medications Medication Drug Class(es) Dates Sig (Normalized) Sig (Original) acetaminophen 325 mg oral tablet (16 sources) Start: 03-07-2021 acetaminophen (TYLENOL) 325 mg tablet Take by mouth. 03/07/2021 Active Start: 03-07-2021 take 2 tablets by [facility] at bedtime as needed for pain [...] End: 5 take 1 tablet by mouth once daily at bedtime atorvastatin (Lipitor) 10 mg tablet Indications: Hyperlipidemia, unspecified TAKE 1 TABLET BY MOUTH EVERYDAY AT BEDTIME 90 tablet 3 04/02/2023 Active Comment on above: Take 10 mg by mouth. bisacodyl 5 mg delayed release oral tablet (2 sources) Stimulant Laxative Start: 4 End: 4 take 1 tablet by mouth once bisacodyl (Dulcolax) 5 MG EC tablet Indications: Encounter for screening colonoscopy Take 1 tablet (5 mg) by mouth 1 time for 1 dose Do not crush, chew, or split. Take as detailed on clinic hand out for colonoscopy prep 1 tablet 10/28/2023 10/28/2023 Active 24 hr dilTIAZem hydrochloride 180 mg extended release oral capsule (20 sources) Calcium Channel Braeden Start: 0 take 1 tablet by mouth every twenty-four hours dilTIAZem LA (CARDIZEM LA) 240 mg 24 hr tablet Take 240 mg by mouth. 09/28/2019 Active Start: 09-28-2019 take 1 capsule by [facility] once daily in the morning dilTIAZem CD (Cardizem CD) 180 mg 24 hr capsule Indications: Paroxysmal atrial fibrillation (Multi) TAKE 1 CAPSULE BY MOUTH EVERY MORNING 90 capsule 1 01/15/2024 Active Comment on above: Take 180 mg [...] oral tablet (20 sources) Loop Diuretic Start: 4 take 1 tablet by mouth every twenty-four hours as needed furosemide (Lasix) 40 mg tablet Take 1 tablet (40 mg) by mouth once daily as needed. 07/28/2023 Active meloxicam 15 mg oral tablet (20 sources) Nonsteroidal Anti-inflammatory Drug Start: 4 take 1 tablet by mouth once daily meloxicam (Mobic) 15 mg tablet Take 1 tablet (15 mg) by mouth once daily. 02/17/2024 Active Start: 12-21-2023 End: 01-18-2024 take 1 tablet by mouth once daily at mealtime meloxicam (Mobic) 15 MG tablet Indications: Lumbar radiculopathy Take 1 tablet (15 mg) by mouth Daily Take with food 30 tablet 5 01/18/2024 Active Multi Vitamin+ (3 sources) Start: 01-21-2021 [...] Refills(s) 0 Start Date: 08/09/21 Status: Ordered polyethylene glycol 3350 72394 mg powder for oral solution (2 sources) Osmotic Laxative Start: 10-28-2023 End: 10-28-2023 take 17 g by mouth once polyethylene glycol, PEG, 3350 (Glycolax) 17 GM/SCOOP powder Indications: Colonoscopy Take 238 g by mouth 1 (one) time for 1 dose Take as detailed from clinic hand out for colonoscopy prep 238 g 10/28/2023 10/28/2023 Active potassium chloride 20 meq extended release oral tablet (20 sources) Start: 07-28-2023 take 1 tablet by mouth every twenty-four hours as needed potassium chloride CR 20 mEq ER tablet Take 1 tablet (20 mEq) by mouth once daily as needed. 07/28/2023 Active propafenone hydrochloride 150 mg oral tablet (20 sources) Antiarrhythmic Start: 07-25-2021 End: 04-27-2024 take 1 tablet by mouth three times daily propafenone (Rythmol) 150 mg tablet Indications: Paroxysmal SVT (supraventricular tachycardia) ([facility]) Take 1 tablet (150 mg) by mouth 3 times a day. 270 tablet 3 04/28/2023 04/27/2024 Active Comment on above: Take 150 mg by mouth three times daily. tamsulosin hydrochloride 0.4 mg oral capsule (20 sources) alpha-Adrenergic Braeden Start: 08-09-2021 End: 11-08-2024 take 1 capsule by mouth once daily tamsulosin (Flomax) 0.4 mg 24 hr capsule Take 1 capsule (0.4 mg) by mouth once daily. 12/31/2022 Active Comment on above: Take 0.4 [...] Comment on above: Take 1 capsule by [facility] twice daily. lisinopril 10 mg oral [...] tachycardia] Onset: 02-06-2023 01-18-2021 Chronic Conduction disorders (6 sources) Bifascicular block; Translations: [Bifascicular block] Onset: [...] urinary tract symptoms] Onset: 08-09-2021 01-21-2021 Chronic Other aftercare (3 sources) Other intermediate manager (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; Translations: [OTH RETIREMENT CURRENT DRUG THERAPY] Onset: 07-09-2022 Episodic Other aftercare (3 sources) Taking high risk medication; Translations: [Other residential (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] Onset: 03-08-2024 03-08-2024 Episodic Other diseases of kidney and ureters (1 source) Urinary tract obstruction; Translations: [Other obstructive and reflux uropathy] Onset: 09-27-2021 Episodic Other lower respiratory disease (2 sources) Hypoxia; Translations: [Hypoxemia] 12-02-2023 Episodic Other lower respiratory disease (2 sources) Snoring; Translations: [Snoring] 12-02-2023 Episodic Other non-traumatic joint disorders (7 sources) Hip pain; Translations: [Pain in right hip] Onset: 02-17-2024 02-17-2024 Episodic Other nutritional; endocrine; and metabolic disorders (6 sources) Obesity; Translations: [Obesity, unspecified] Chronic Other nutritional; endocrine; and metabolic disorders (6 sources) Severe obesity 01-18-2021 Chronic Other nutritional; endocrine; and metabolic disorders (8 sources) Body mass index 40+ - severely obese; Translations: [Morbid obesity] Onset: 02-10-2023 02-10-2023 Chronic Other nutritional; endocrine; and metabolic disorders (20 sources) Morbid obesity; Translations: [Morbid (severe) obesity due to excess calories] Onset: 06-29-2023 12-02-2023 Chronic Other nutritional; endocrine; and metabolic disorders (2 sources) Body mass index (BMI) 40.0-44.9, adult; Translations: [Body mass index (BMI) 40.0-44.9, adult (Multi)] Onset: 02-10-2023 Chronic Other nutritional; endocrine; and metabolic disorders (2 sources) Morbid (severe) obesity due to excess calories; Translations: [Morbid (severe) obesity due to excess calories (Multi)] Onset: 02-10-2023 Chronic Residual codes; unclassified (6 sources) Sleep apnea 03-07-2021 Chronic Residual codes; unclassified (20 sources) Obstructive sleep apnea syndrome; Translations: [Obstructive sleep apnea (adult) (pediatric)] Onset: 06-29-2023 12-02-2023 Chronic Residual codes; unclassified (2 sources) Daytime somnolence; Translations: [Other hypersomnia] 12-02-2023 Chronic Residual codes; unclassified (2 sources) Obstructive sleep apnea (adult) (pediatric); Translations: [Obstructive sleep apnea (adult) (pediatric)] Onset: 03-08-2024 Chronic Residual codes; unclassified (6 sources) Family history of prostate cancer 01-21-2021 Episodic Residual codes; unclassified (5 sources) Family history of cancer; Translations: [Family history of malignant neoplasm of prostate] Onset: 08-09-2021 Episodic Screening and history of mental health and substance abuse codes (9 sources) Ex-smoker; Translations: [Personal history of tobacco use] Episodic Comment on above: Quit in ; Spondylosis; intervertebral disc disorders; other back problems (7 sources) Degeneration of lumbar intervertebral disc; Translations: [Degeneration of intervertebral disc of lumbar region with discogenic back pain and lower extremity pain] Onset: 12-21-2023 02-17-2024 Chronic Spondylosis; intervertebral disc disorders; other back problems (20 sources) Lumbar radiculopathy; Translations: [Chronic low back pain] Onset: 12-21-2023 12-21-2023 Episodic Unclassified (1 source) Supraventricular tachycardia, unspecified (CMS-HCC); Translations: [Supraventricular tachycardia, unspecified (CMS-HCC)] Onset: 02-06-2023 Past or Other Problems Problem Classification Problem Date Documented Date Episodic/Chronic Calculus of urinary tract (1 source) Calculus of ureter; Translations: [CALCULUS OF URETER] Onset: 09-24-2021 Episodic Nonspecific chest pain (11 sources) Chest pain; Translations: [Chest pain, unspecified] Onset: 02-06-2023 Resolved: 03-08-2024 02-06-2023 Episodic Other aftercare (20 sources) Long-term current use of drug therapy; Translations: [Other intermediate manager (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] Onset: 06-29-2023 06-29-2023 Episodic Other aftercare (3 sources) Patient encounter status; Translations: [Other residential (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] Onset: 06-29-2023 06-29-2023 Episodic Other lower respiratory disease (20 sources) Dyspnea on exertion; Translations: [Shortness of breath] Onset: 06-29-2023 Resolved: 12-21-2023 06-29-2023 Episodic Other screening for suspected conditions (not mental disorders or infectious disease) (8 sources) Raised prostate specific antigen; Translations: [Patient encounter status] 01-21-2021 Episodic Residual codes; unclassified (1 source) Family history of malignant neoplasm of prostate; Translations: [FAMILY HX MALIG NEOPLASM PROSTATE] Onset: 03-13-2022 Episodic Residual codes; unclassified (20 sources) Bilateral lower limb edema; Translations: [Localized edema] Onset: 06-29-2023 06-29-2023 Episodic Unclassified (2 sources) Onset: 02-10-2023 Resolved: 03-08-2024 02-10-2023 Unclassified (1 source) Supraventricular tachycardia, unspecified (CMS-HCC); Translations: [Supraventricular tachycardia, unspecified (CMS-HCC)] Onset: 03-08-2024 Results Test Name Value Interpretation Reference Range Facility MHPT PSA, DIAGNOSTICon 12-02 PROSTATE SPECIFIC ANTIGEN DX 0.13 ng/mL NINF - 4.00 ng/mL [facility] Ruddy 11-17-2023 L Specimen: [id number] Received: 11/18/23 Status: LEILANI Javier Num: [id number] Spec Type: Surgical Subm Dr: Franchesca Nj DO Tissues: A Colon Biopsy (SIGMOID POLYP) Procedures: HE/2, Gross/Micro L4 Age/ Patient Sex Location Account Attending Physician Luis Luis 73/M LABELL [id number] Franchesca Nj DO SPEC NUM: [id number] RECD: 11/18/23 STATUS: LEILANI JAVIER NUM: [id number] LULÚ: 11/17/[address]: Franchesca Nj DO ENTERED: 11/18/[address] [facility] DR: Marta,Solange SPEC TYPE: Surgical DEPT: CECILIO RODRIGUEZ ENTERED BY: [id number] RECV BY: [id number] ORDERED: HE/2, Gross/Micro L4 ORDERED: 2, Gross/Micro L4 Pathological Diagnosis Polyp, sigmoid colon: [...] entirely submitted in cassette A1. CPT Codes 98185 Specimen: [id number] Received: 11/18/23 Status: LEILANI Javier Num: [id number] Spec Type: Surgical Subm Dr: Franchesca Nj DO Tissues: A Colon Biopsy (SIGMOID POLYP) Procedures: HE/2, Gross/Micro L4 Patient: Luis Luis [id number] (Continued) Signed (signature on file) Brynn Watson MD 11/19/231926 Normal [facility] Ambulatory Visit Summaryon 0 05-11-2023 [...] DELGADO, Yin Patel Where: [facility] Patient Educationon 05-11-19 Patient Education Oncology Prostate [...] Where to find more information ? The [employer]: www.cancer.org ? [employer]: www.auanet.org Contact a health care [...] adds flu (more content not included)... Normal [facility] Urology Office/Clinic Noteon 05-11-2023 Urology Office/Clinic [...] Patel, URL [facility] [address], [place] [address]- [phone] Additional Instructions: PSA in 6 mos and f/u in 1 yr w/ repeat PSA Patient Education Prostate Cancer Screening I, Kimberly Nash, personally scribed for Dr. Hawk on 05/11/2023 10:32:17. . Documentation recorded by the scribeKimberly, accurately [...] Prostate ca (more content not included)... Normal [facility] Comment on above: Result Comment: Elec tronically Signed By: Yin HAWK MD\.br\Date and Time Signed: 05/11/23 10:34 EDT\.br\Electronically Co-Signed By: Kimberly Nash.br\Date and Time Co-Signed: 05/11/23 10:32 EDT CNOVon 04-07-2023 CNOV Office Visit (RADTSA ) -------- LUIS LUIS ([id number]) 1950 M Date Time Provider Department 04/07/23 [...] ASSESSMENT/PLAN: Prostate adenocarcinoma, initial PSA 4.3, biopsy [place] score 3 + 4 = 7 (grade group 2), clinical stage T2a, N0, M0, stage IIB [T1-T2, N0, M0, PSA <20, GG 2] (AJCC 8th ed.), s/p TRUS Random and MRI fusion biopsy. PSA remains undetectable. No postradiation related issues. Plan see patient back in one year for further postradiation follow-up. Signed by: Demond Butler MD cc: Kevin Brewer MD ([facility]) [address] [place] [address] Portions of the above note extracted and edited from previous visit as well as active information included in the EMR. Kelly Guo LPN 04/15/2023 3:32 PM Signed AUA=12 Referring Provider: Demond BUTLER [[id number]] Allergies As of Date: 04/07/2023 (No Known Allergies) Date Reviewed: 04/07/2023 Reviewed by: Kelly Guo LPN - Fully Assessed Reason for Visit: Prostate Cancer [590] Primary Visit Diagnosis:Malignant neoplasm of prostate (HCC) [C61] Order(s):PSA (OUTSIDE) [3758069] Order #: [id number] PSA/PROSTSPECAG DIAG [SQPSA] Order #: [id number] FUTURE Prescriptions as of 04/15/2023 - naproxen [...] for Encounter Date Provider Department Center 04/07/2023 [id number] BUTLER JANNA RAVI Encounter Status:Closed by Demond BUTLER on 04/15/23 Normal [facility] Reportson 04-01-2023 Lab Reports [id number] F Normal [facility] ECG 12 Leadon 02-10-2023 Normal sinus rhythm Right bundle branch block left anterior fascicular block Bifascicular block Cannot exclude age-indeterminate inferior infarct QTc 443 ms [facility] Work Phone: CNOVon 09-30-2022 CNOV Office Visit (RADTSA ) -------- BILLLUIS J ([id number]) 1950 M Date Time Provider Department 09/30/22 2:00 PM Demond BUTLER During your visit today, we recorded the following information about you: Temperature Pulse Respiration Blood pressure 96.7 degrees 92/minute 18/minute 143/85 Weight 145 kg Naida Jacobo RN 10/03/2022 8:14 AM Signed AUYOLANDA Cameron G Phillip, MD 10/03/2022 8:14 AM Signed Radiation Oncology - Follow Up Note PATIENT NAME: Luis Luis PATIENT DIAGNOSIS: Prostate adenocarcinoma, initial PSA 4.3, biopsy [place] score 3 + 4 = 7 (grade [...] Demond Butler MD cc: Kevin Brewer MD ([facility]) [address] [place] [address] Portions of the above note extracted and edited from previous visit as well as active information included in the EMR. Referring Provider: Demond BUTLER [[id number]] Allergies As of Date: 09/30/2022 (No Known Allergies) Date Reviewed: 09/30/2022 Reviewed by: Naida Jacobo RN - Fully Assessed Reason for Visit: Prostate Cancer [590] Primary Visit Diagnosis:Malignant neoplasm of prostate (HCC) [C61] Order(s):PSA (OUTSIDE) [8414601] Order #: [id number] PSA/PROSTSPECAG DIAG [SQPSA] Order #: [id number] FUTURE Prescriptions as of 10/03/2022 - naproxen [...] for Encounter Date Provider Department Center 09/30/2022 [id number] [facility] BREONNA Encounter Status:Closed by Demond BUTLER on 10/03/22 Normal [facility] Lab Reportson 09-09-2022 Lab Reports [id number]: 127 Normal [facility] Ambulatory Visit Summaryon 0 09-08-2022 Ambulatory Visit Summary LUIS LUIS :1950 Visit Date:09/08/2022 Ambulatory Visit Instructions Your Diagnosis Prostate cancer BPH with urinary obstruction Family history of prostate cancer Tests Performed Urnls Dip Stick Auto w/o Microscopy POC 96175 Your Care Team Attending Physician - CARINE [...] DELGADO, Yin Patel Where: [facility] Patient Educationon 09-09-19 Patient Education Urology [...] Follow these instructions at home: ? Take mekt-jjr-smydjwy and prescription medicines only as told by [...] the medicine (more content not included)... Normal [facility] Urology Office/Clinic Noteon 09-08-2022 Urology Office/Clinic [...] [facility] [address], [place] [address]- [phone] Additional Instructions: PSA Patient Education Benign Prostatic Hyperplasia IKimberly, personally scribed for Dr. Hawk on 09/08/2022 [...] lifetime) To (more content not included)... Normal [facility] Comment on above: Result Comment: Elec tronically Signed By: Yin HAWK MD\.br\Date and Time Signed: 09/08/22 12:22 EDT\.br\Electronically Co-Signed By: Kimberly Nash\.br\Date and Time Co-Signed: 09/08/22 12:20 EDT CBC AUTO DIFFon 07-02-2022 BASO # 0.1 103/ul Normal 0.0-0.1 [facility] Comment on above: Performed By: #### C BC #### [facility] [address] [place] [address] Dr. Shama Naylor Basophils/100 WBC (Bld) 0.8 % Normal 0.2-2.0 [facility] Comment on above: Performed By: #### C BC #### [facility] [address] [place] [address] Dr. Shama Naylor EO # 0.1 103/ul Normal 0.0-0.7 [facility] Comment on above: Performed By: #### C BC #### [facility] [address] [place] [address] Dr. Shama Naylor Eosinophils/100 WBC (Bld) 2.0 % Normal 0.9-7.0 [facility] Comment on above: Performed By: #### C BC #### [facility] [address] [place] [address] Dr. Shama Naylor Erythrocyte distribution width (RBC) [Ratio] 13.6 % Normal 11.0-15.0 [facility] Comment on above: Performed By: #### C BC #### [facility] [address] [place] [address] Dr. Shama Naylor Hematocrit (Bld) [Volume fraction] 40.0 % Critically low 42.0-54.0 [facility] Comment on above: Performed By: #### C BC #### [facility] [address] [place] [address] Dr. Shama Naylor Hemoglobin (Bld) [Mass/Vol] 13.6 g/dL Critically low 14.0-18.0 [facility] Comment on above: Performed By: #### C BC #### [facility] [address] [place] [address] Dr. Shama Naylor IG # 0.02 10e3/ul Normal 0.00-0.03 [facility] Comment on above: Performed By: #### C BC #### [facility] [address] [place] [address] Dr. Shama Naylor IG % 0.3 % Normal 0.0-0.5 [facility] Comment on above: Performed By: #### C BC #### [facility] [address] [place] [address] Dr. Shama Naylor LYMPH # 1.6 103/ul Normal 1.2-3.8 [facility] Comment on above: Performed By: #### C BC #### [facility] [address] [place] [address] Dr. Shama Naylor Lymphocytes/100 WBC (Bld) 26.0 % Normal 20.5-60.0 [facility] Comment on above: Performed By: #### C BC #### [facility] [address] [place] [address] Dr. Shama Naylor MANUAL DIFF REQ NO Normal [facility] Comment on above: Performed By: #### C BC #### [facility] [address] [place] [address] Dr. Shama Naylor MCH (RBC) [Entitic mass] 30.8 pg Normal 25.9-34.0 [facility] Comment on above: Performed By: #### C BC #### [facility] [address] [place] [address] Dr. Shama Naylor MCHC (RBC) [Mass/Vol] 34.0 g/dL Normal 29.9-35.2 [facility] Comment on above: Performed By: #### C BC #### [facility] [address] [place] [address] Dr. Shama Naylor MCV (RBC) [Entitic vol] 90.7 fL Normal 80.0-94.0 [facility] Comment on above: Performed By: #### C BC #### [facility] [address] [place] [address] Dr. Shama Naylor MONO # 0.4 103/ul Normal 0.3-0.8 [facility] Comment on above: Performed By: #### C BC #### [facility] [address] [place] [address] Dr. Shama Naylor Monocytes/100 WBC (Bld) 6.1 % Normal 1.7-12.0 [facility] Comment on above: Performed By: #### C BC #### [facility] [address] [place] [address] Dr. Shama Naylor NEUT # 3.9 103/ul Normal 1.4-6.5 [facility] Comment on above: Performed By: #### C BC #### [facility] [address] [place] [address] Dr. Shama Naylor Neutrophils/100 WBC (Bld) 64.8 % Normal 43.0-75.0 [facility] Comment on above: Performed By: #### C BC #### [facility] [address] [place] [address] Dr. Shama Naylor Platelet mean volume (Bld) [Entitic vol] 10.3 fL Normal 9.5-13.5 [facility] Comment on above: Performed By: #### C BC #### [facility] [address] [place] [address] Dr. Shama Naylor PLT 165 103/ul Normal 150-450 [facility] Comment on above: Performed By: #### C BC #### [facility] [address] [place] [address] Dr. Shama Naylor RBC 4.41 106/ul Critically low 4.70-6.10 [facility] Comment on above: Performed By: #### C BC #### [facility] [address] [address] [address] Shama Naylor WBC 6.0 103/ul Normal 4.0-11.0 [facility] Comment on above: Performed By: #### C BC #### [facility] [address] [address] [address] Shama Naylor LIPID PROFILEon 07-02-2022 CHOL-HDL RATIO NORM SEE BELOW Normal [facility] Comment on above: Result Comment: 3.3 - 4.4 LOW RISK 4.4 - 7.1 AVERAGE RISK 7.1 - 11.0 MODERATE RISK >11.0 HIGH RISK Performed By: #### L IPID, BMP, LIVER #### [facility] [address] [address] [address] Shama Naylor Cholesterol [Mass/Vol] 157 mg/dL Normal <=200 [facility] Comment on above: Performed By: #### L IPID, BMP, LIVER #### [facility] [address] [place] [address] Dr. Shama Naylor Cholesterol in HDL [Mass/Vol] 58 mg/dL Normal 40-60 [facility] Comment on above: Performed By: #### L IPID, BMP, LIVER #### [facility] [address] [place] [address] Dr. Shama Naylor Cholesterol in LDL [Mass/Vol] 81.8 mg/dL Normal [facility] Comment on above: Performed By: #### L IPID, BMP, LIVER #### [facility] [address] [address] [address] Shama Naylor Cholesterol.total /Cholesterol in HDL [Mass ratio] 2.7 {ratio} Normal [facility] Comment on above: Performed By: #### L IPID, BMP, LIVER #### [facility] [address] [place] [address] Dr. Shama Naylor HDL NORMAL > or = 60 mg/dl - LO W CARDIOVASCULAR RISK <40 mg/dl - HIGH CARDIOVASCULAR RISK Normal [facility] Comment on above: Performed By: #### L IPID, BMP, LIVER #### [facility] [address] [address] [address] Shama Naylor LDL CALC NORMAL SEE BELOW Normal [facility] Comment on above: Result Comment: <100 mg/dl OPTIMAL 100 - 129 mg/dl NEAR OR ABOVE OPTIMAL 130 - 159 mg/dl BORDERLINE HIGH 160 - 189 mg/dl HIGH >190 mg/dl VERY HIGH Performed By: #### L IPID, BMP, LIVER #### [facility] [address] [address] [address] Shama Naylor Triglyceride [Mass/Vol] 86 mg/dL Normal <=150 [facility] Comment on above: Performed By: #### L IPID, BMP, LIVER #### [facility] [address] [place] [address] Dr. Shama Naylor VLDL CALC 17.2 mg/dL Normal [facility] Comment on above: Performed By: #### L IPID, BMP, LIVER #### [facility] [address] [place] [address] Dr. Shama Naylor LIVER PROFILEon 07-02-2022 Albumin [Mass/Vol] 3.3 g/dL Critically low 3.4-5.0 [facility] Comment on above: Performed By: #### L IPID, BMP, LIVER #### [facility] [address] [place] [address] Dr. Shama Naylor Albumin/Globulin [Mass ratio] 1.0 {ratio} Normal [facility] Comment on above: Performed By: #### L IPID, BMP, LIVER #### [facility] [address] [place] [address] Dr. Shama Naylor ALP [Catalytic activity/Vol] 61 U/L Normal 46-116 [facility] Comment on above: Performed By: #### L IPID, BMP, LIVER #### [facility] [address] [place] [address] Dr. Shama Naylor ALT [Catalytic activity/Vol] 38 U/L Normal 16-63 [facility] Comment on above: Performed By: #### L IPID, BMP, LIVER #### [facility] [address] [place] [address] Dr. Shama Naylor AST [Catalytic activity/Vol] 14 U/L Critically low 15-37 [facility] Comment on above: Performed By: #### L IPID, BMP, LIVER #### [facility] [address] [place] [address] Dr. Shama Naylor BILI, CONJUGATED 0.1 mg/dL Normal 0.0-0.2 [facility] Comment on above: Performed By: #### L IPID, BMP, LIVER #### [facility] [address] [place] [address] Dr. Shama Naylor Bilirubin [Mass/Vol] 0.4 mg/dL Normal 0.2-1.0 [facility] Comment on above: Performed By: #### L IPID, BMP, LIVER #### [facility] [address] [place] [address] Dr. Shama Naylor Globulin (S) [Mass/Vol] 3.3 g/dL Normal [facility] Comment on above: Performed By: #### L IPID, BMP, LIVER #### [facility] [address] [place] [address] Dr. Shama Naylor Protein [Mass/Vol] 6.6 g/dL Normal 6.4-8.2 [facility] Comment on above: Performed By: #### L IPID, BMP, LIVER #### [facility] [address] [place] [address] Dr. Shama Naylor PROF CHEM 8 (BAS METB)on Anion gap [Moles/Vol] 9.6 mmol/L Normal [facility] Comment on above: Performed By: #### L IPID, BMP, LIVER #### [facility] [address] [place] [address] Dr. Shama Naylor Calcium [Mass/Vol] 8.8 mg/dL Normal 8.5-10.1 [facility] Comment on above: Performed By: #### L IPID, BMP, LIVER #### [facility] [address] [place] [address] Dr. Shama Naylor Chloride [Moles/Vol] 107 mmol/L Normal 98-107 [facility] Comment on above: Performed By: #### L IPID, BMP, LIVER #### [facility] [address] [address] [address] Shama Naylor CO2 [Moles/Vol] 28.3 mmol/L Normal 21.0-32.0 [facility] Comment on above: Performed By: #### L IPID, BMP, LIVER #### [facility] [address] [place] [address] Dr. Shama Naylor Creatinine [Mass/Vol] 1.03 mg/dL Normal 0.70-1.30 [facility] Comment on above: Performed By: #### L IPID, BMP, LIVER #### [facility] [address] [place] [address] Dr. Shama Naylor EGFR-AF ROMANIAN >60 Normal >=60 [facility] Comment on above: Performed By: #### L IPID, BMP, LIVER #### [facility] [address] [place] [address] Dr. Shama Naylor EGFR-NON AF ROMANIAN >60 Normal >=60 [facility] Comment on above: Performed By: #### L IPID, BMP, LIVER #### [facility] [address] [place] [address] Dr. Shama Naylor Glucose [Mass/Vol] 103 mg/dL Normal 74-106 [facility] Comment on above: Performed By: #### L IPID, BMP, LIVER #### [facility] [address] [place] [address] Dr. Shmaa Naylor Potassium [Moles/Vol] 3.9 mmol/L Normal 3.5-5.1 [facility] Comment on above: Performed By: #### L IPID, BMP, LIVER #### [facility] [address] [place] [address] Dr. Shama Naylor Sodium [Moles/Vol] 141 mmol/L Normal 136-145 [facility] Comment on above: Performed By: #### L IPID, BMP, LIVER #### [facility] [address] [place] [address] Dr. Shama Naylor Urea nitrogen [Mass/Vol] 14.0 mg/dL Normal 7.0-18.0 [facility] Comment on above: Performed By: #### L IPID, BMP, LIVER #### [facility] [address], [place] [address] Dr. Shama Naylor Urea nitrogen/Creatini ne [Mass ratio] 13.6 mg/mg Normal [facility] Comment on above: Performed By: #### L IPID, BMP, LIVER #### [facility] [address] [place], [place] [address] Dr. Shama Naylor Office Visit (Cardiology)on 02-11-2022 Follow-up visit Diagnoses/Problems Assessed Paroxysmal SVT (supraventricular tachycardia) (427.0) (I47.1) Hypertension (401.9) (I10) HLD (hyperlipidemia) (272.4) (E78.5) Morbid obesity with BMI of 40.0-44.9, adult (278.01,V85.41) (E66.01,Z68.41) Former smoker (V15.82) (Z87.891) Quit in 1970s Orders Morbid obesity with BMI of 40.0-44.9, adult Healthy Weight Tips; Status:Complete; Done: [id number] Some eating tips that can help you lose weight.; Status:Complete; Done: [id number] Paroxysmal SVT (supraventricular tachycardia) IO EKG Electrocardiogram- 12 Lead; Status:Complete; Done: [id number] SocHx: Former smoker Tobacco Use Screening; Status:Complete; Done: [id number] Patient Instructions Please bring all medicines, vitamins, [...] negative for complaint. Vitals Vital Signs Recorded: [id number] 11:05AM Heart Rate73, Apical Mcpacnbt332, LUE, Sitting Oobuyqlqd01, LUE, Sitting Height6 ft 2 in Qmegie477 lb BMI Tlmiwffkfg40.57 kg/m2 BSA Calculated2.64 Tobacco Useb) No PHQ-2 [...] Feb 11 2022 5:56PM EST (Author) Normal [employer] Tobacco Screening.on Adult depression screening assessment No [facility] [employer] DO Work Phone: Fall risk assessment a) No falls within the last year [facility] [employer] 250 DO Work Phone: Tobacco use status CP b) No -[facility] [employer] 250 DO Work Phone: Falls Risk Screeningon 08-12 Fall risk assessment a) No falls within the last year [facility] [employer] 250 DO Work Phone: Office Visit (Cardiology)on [...] Weight Tips; Status:Complete - Retrospective Authorization; Done: [id number] SocHx: Former smoker Tobacco Use Screening; Status:Complete; Done: [id number] Unlinked Stop: Aspirin 81 MG Oral Tablet [...] negative for complaint. Vitals Vital Signs Recorded: [id number] 01:46PM Heart Rate72, R Radial Pispefaj554, RUE, Sitting Hjntljnjz07, RUE, Sitting Height6 ft 2 in Mrbtug655 lb BMI Fvmsfebnyh95.67 kg/m2 BSA Calculated2.61 Tobacco Useb) No Fall [...] Feb 15 2021 5:53PM EST (Author) Normal [employer] Tobacco Screening.on 021 Fall risk assessment a) No falls within the last year [facility] 250 DO Work Phone: Tobacco use status [facility] b) No [facility] 250 DO Work Phone: [facility] CARDIAC STRESS/REST INJE CTIONon 11-29-2019 [facility] CARDIAC STRESS/REST INJECTION Patient Name: LUIS LUIS STUDY: MYOCARDIAL PERFUSION STRESS TEST WITH LEXISCAN Performing facility: [facility], [address] [place] [address], [address], [place] [id number] [facility] Provider: Mary Tma RN, DIAGNOSTIC RADIOLOGIC TECHNOLOGIST PCP: Dr. Julianna Brewer Supervising provider: Sunday Rai DO, [facility] INDICATION: Chest Pain; HISTORY: Gender: M; Age: 69 y/o ; Height: 187.96 cm; Weight: 599.7425214 kg. High Cholesterol; HTN; Palpitations; Chest Pain; SOB; Quit smoking 40 years ago. COMPARISON: No comparison. ACCESSION NUMBER(S): [id number]; [id number]; [id number] ORDERING CLINICIAN: MARY TAM TECHNIQUE: TWO DAY [...] comparison. Electronically signed by: JAMIL JARRELL MD [facility] Vital Signs Date Time Vital Sign Value Performing Clinician Facility 03-08-2024 08:56-0500 Body height 188 cm Mary AVERY Work Phone: [facility] 03-08-2024 08:56-0500 Body mass index (BMI) [Ratio] 41.09 kg/m2 Mary AVERY Work Phone: [facility] 03-08-2024 08:56-0500 Body weight 145.15 kg Mary AVERY Work Phone: [facility] 03-08-2024 08:56-0500 Diastolic blood pressure 80 mm[Hg] Mary Tam INSTRUCTOR [employer]-DIAGNOSTIC RADIOLOGIC TECHNOLOGIST Work Phone: [facility] 03-08-2024 08:56-0500 Heart rate 68 /min Mary Tam INSTRUCTOR [employer]DIAGNOSTIC RADIOLOGIC TECHNOLOGIST Work Phone: [facility] 03-08-2024 08:56-0500 Systolic blood pressure 136 mm[Hg] Mary Tam INSTRUCTOR [employer]DIAGNOSTIC RADIOLOGIC TECHNOLOGIST Work Phone: [facility] 02-17-2024 13:36-0500 Body height 188 cm Kevin Brewer MD Work Phone: [facility] 02-17-2024 13:36-0500 Body mass index (BMI) [Ratio] 40.83 kg/m2 Kevin Brewer MD Work Phone: [facility] 02-17-2024 13:36-0500 Body temperature 97.11 [degF] Kevin Brewer MD Work Phone: [facility] 02-17-2024 13:36-0500 Body weight 144.24 kg Kevin Brewer MD Work Phone: [facility] 02-17-2024 13:36-0500 Diastolic blood pressure 72 mm[Hg] Kevin Brewer MD Work Phone: [facility] 02-17-2024 13:36-0500 Heart rate 72 /min Kevin Brewer MD Work Phone: [facility] 02-17-2024 13:36-0500 Respiratory rate 18 /min Kevin Brewer MD Work Phone: [facility] 02-17-2024 13:36-0500 SaO2% (BldA) [Mass fraction] 95 % Kevin Brewer MD Work Phone: [facility] 02-17-2024 13:36-0500 Systolic blood pressure 144 mm[Hg] Kevin Brewer MD Work Phone: [facility] 12-21-2023 08:54-0400 Body height 188 cm Kevin Brewer MD Work Phone: [facility] 12-21-2023 08:54-0400 Body mass index (BMI) [Ratio] 40.19 kg/m2 Kevin Brewer MD Work Phone: [facility] 12-21-2023 08:54-0400 Body temperature 96.6 [degF] Kevin Brewer MD Work Phone: [facility] 12-21-2023 08:54-0400 Body weight 141.98 kg Kevin Brewer MD Work Phone: [facility] 12-21-2023 08:54-0400 Diastolic blood pressure 84 mm[Hg] Kevin Brewer MD Work Phone: [facility] 12-21-2023 08:54-0400 Heart rate 87 /min Kevin Brewer MD Work Phone: [facility] 12-21-2023 08:54-0400 Respiratory rate 20 /min Kevin Brewer MD Work Phone: [facility] 12-21-2023 08:54-0400 SaO2% (BldA) [Mass fraction] 94 % Kevin Brewer MD Work Phone: [facility] 12-21-2023 08:54-0400 Systolic blood pressure 150 mm[Hg] Kevin Brewer MD Work Phone: [facility] 12-02-2023 13:42-0400 Body height 188 cm Naida Hobson RADIATOR FITTER Work Phone: [facility] 12-02-2023 13:42-0400 Body mass index (BMI) [Ratio] 40.06 kg/m2 Naida Hobson RADIATOR FITTER Work Phone: [facility] 12-02-2023 13:42-0400 Body weight 141.52 kg Naida Hobson RADIATOR FITTER Work Phone: [facility] 12-02-2023 13:42-0400 Diastolic blood pressure 92 mm[Hg] Naida Hobson RADIATOR FITTER Work Phone: [facility] 12-02-2023 13:42-0400 Heart rate 75 /min Naida Batistaamanda RADIATOR FITTER Work Phone: [facility] 12-02-2023 13:42-0400 Systolic blood pressure 148 mm[Hg] Naida Batistar RADIATOR FITTER Work Phone: [facility] 10-28-2023 10:12-0400 Body height 188 cm Franchesca Nj DO Work Phone: [facility] 10-28-2023 10:12-0400 Body mass index (BMI) [Ratio] 41.6 kg/m2 Franchesca Nj DO Work Phone: [facility] 10-28-2023 10:12-0400 Body weight 146.97 kg Franchesca Nj DO Work Phone: [facility] 10-28-2023 10:12-0400 Diastolic blood pressure 80 mm[Hg] Franchesca Nj DO Work Phone: [facility] 10-28-2023 10:12-0400 Heart rate 76 /min Franchesca Nj DO Work Phone: [facility] 10-28-2023 10:12-0400 Respiratory rate 20 /min Franchesca Nj DO Work Phone: [facility] 10-28-2023 10:12-0400 SaO2% (BldA) [Mass fraction] 94 % Franchesca Nj DO Work Phone: [facility] 10-28-2023 10:12-0400 Systolic blood pressure 142 mm[Hg] Franchesca Nj DO Work Phone: [facility] 04-07-2023 13:06-0500 Body temperature 97.9 [degF] SARAVANAN Butler MD Work Phone: [facility] 04-07-2023 13:06-0500 Body weight 149.2 kg SARAVANAN Butler MD Work Phone: [facility] 04-07-2023 13:06-0500 Diastolic blood pressure 83 mm[Hg] SARAVANAN Butler MD Work Phone: [facility] 04-07-2023 13:06-0500 Heart rate 80 /min SARAVANAN Butler MD Work Phone: [facility] 04-07-2023 13:06-0500 Respiratory rate 16 /min SARAVANAN Butler MD Work Phone: [facility] 04-07-2023 13:06-0500 SaO2% (BldA) [Mass fraction] 96 % SARAVANAN Butler MD Work Phone: [facility] 04-07-2023 13:06-0500 Systolic blood pressure 139 mm[Hg] SARAVANAN Butler MD Work Phone: [facility] 02-10-2023 11:10-0500 Body height 188 cm Parveen Santo MD Work Phone: [facility] 02-10-2023 11:10-0500 Body mass index (BMI) [Ratio] 41.6 kg/m2 Parveen Santo MD Work Phone: [facility] 02-10-2023 11:10-0500 Body weight 146.97 kg Parveen Santo MD Work Phone: [facility] 02-10-2023 11:10-0500 Diastolic blood pressure 84 mm[Hg] Parveen Santo MD Work Phone: [facility] 02-10-2023 11:10-0500 Heart rate 67 /min Parveen Santo MD Work Phone: [facility] 02-10-2023 11:10-0500 Systolic blood pressure 132 mm[Hg] Parveen Santo MD Work Phone: [facility] 09-30-2022 13:55-0400 Body temperature 96.69 [degF] SARAVANAN Butler MD Work Phone: [facility] 09-30-2022 13:55-0400 Body weight 144.97 kg SARAVANAN Butler MD Work Phone: [facility] 09-30-2022 13:55-0400 Diastolic blood pressure 85 mm[Hg] SARAVANAN Butler MD Work Phone: [facility] 09-30-2022 13:55-0400 Heart rate 92 /min SARAVANAN Butler MD Work Phone: [facility] 09-30-2022 13:55-0400 Respiratory rate 18 /min SARAVANAN Butler MD Work Phone: [facility] 09-30-2022 13:55-0400 SaO2% (BldA) [Mass fraction] 94 % SARAVANAN Butler MD Work Phone: [facility] 09-30-2022 13:55-0400 Systolic blood pressure 143 mm[Hg] SARAVANAN Butler MD Work Phone: [facility] 09-08-2022 10:50-0400 Blood Pressure Location Yin HAWK [facility] 09-08-2022 10:50-0400 Diastolic blood pressure 73 mm[Hg] iYn HAWK [facility] 09-08-2022 10:50-0400 Heart rate 72 /min Yin HAWK [facility] 09-08-2022 10:50-0400 Respiratory rate 16 /min Yin HAWK [facility] 09-08-2022 10:50-0400 Systolic blood pressure 132 mm[Hg] Yin HAWK [facility] 04-01-2022 14:41-0500 Body temperature 97.2 [degF] SARAVANAN Butler MD Work Phone: [facility] 04-01-2022 14:41-0500 Body weight 142.79 kg SARAVANAN Butler MD Work Phone: [facility] 04-01-2022 14:41-0500 Diastolic blood pressure 90 mm[Hg] SARAVANAN Butler MD Work Phone: [facility] 04-01-2022 14:41-0500 Heart rate 82 /min SARAVANAN Butler MD Work Phone: [facility] 04-01-2022 14:41-0500 Respiratory rate 18 /min SARAVANAN Butler MD Work Phone: [facility] 04-01-2022 14:41-0500 SaO2% (BldA) [Mass fraction] 98 % SARAVANAN Butler MD Work Phone: [facility] 04-01-2022 14:41-0500 Systolic blood pressure 159 mm[Hg] SARAVANAN Butler MD Work Phone: [facility] 03-21-2022 11:25-0500 Blood Pressure Location Yin HAWK [facility] 03-21-2022 11:25-0500 Diastolic blood pressure 80 mm[Hg] Yin HAWK [facility] 03-21-2022 11:25-0500 Heart rate 76 /min Yin HAWK [facility] 03-21-2022 11:25-0500 Respiratory rate 16 /min Yin HAWK [facility] 03-21-2022 11:25-0500 Systolic blood pressure 138 mm[Hg] Yin HAWK [facility] 02-11-2022 11:05-0500 Body height 187.96 cm Kevin Brewer Work Phone: [facility] 250 DO Work Phone: 02-11-2022 11:05-0500 Body mass index (BMI) [Ratio] 40.57 kg/m2 Kevin A Naderer Work Phone: [facility] 250 DO Work Phone: 02-11-2022 11:05-0500 Body surface area Derived from formula 2.64 m2 Kevin Scott Naderer Work Phone: [facility] 250 DO Work Phone: 02-11-2022 11:05-0500 Body weight 143.34 kg Kevin Lovelaceerer Work Phone: [facility] 250 DO Work Phone: 02-11-2022 11:05-0500 Diastolic blood pressure 78 mm[Hg] Kevin Lovelaceerer Work Phone: [facility] 250 DO Work Phone: 02-11-2022 11:05-0500 Heart rate 73 /min Kevin Lovelaceerer Work Phone: [facility] 250 DO Work Phone: 02-11-2022 11:05-0500 Systolic blood pressure 132 mm[Hg] Kevin Lovelaceerer Work Phone: [facility] 250 DO Work Phone: 09-30-2021 10:54-0400 Blood Pressure Location Yin HAWK [facility] 09-30-2021 10:54-0400 Diastolic blood pressure 84 mm[Hg] Yin HAWK [facility] 09-30-2021 10:54-0400 Heart rate 75 /min Yin HAWK [facility] 09-30-2021 10:54-0400 Respiratory rate 16 /min Yin HAWK [facility] 09-30-2021 10:54-0400 Systolic blood pressure 136 mm[Hg] [facility]WK [facility] 08-14-2021 09:47-0400 Body temperature 96.69 [degF] SARAVANAN Butler MD Work Phone: [facility] 08-14-2021 09:47-0400 Body weight 141.98 kg SARAVANAN Butler MD Work Phone: [facility] 08-14-2021 09:47-0400 Diastolic blood pressure 82 mm[Hg] SARAVANAN Butler MD Work Phone: [facility] 08-14-2021 09:47-0400 Heart rate 82 /min SARAVANAN Butler MD Work Phone: [facility] 08-14-2021 09:47-0400 Respiratory rate 20 /min SARAVANAN Butler MD Work Phone: [facility] 08-14-2021 09:47-0400 SaO2% (BldA) [Mass fraction] 94 % SARAVANAN Butler MD Work Phone: [facility] 08-14-2021 09:47-0400 Systolic blood pressure 131 mm[Hg] SARAVANAN Butler MD Work Phone: [facility] 08-12-2021 10:15-0400 Body height 187.96 cm Kevin Brewer Work Phone: [facility] [employer] 250 DO Work Phone: 08-12-2021 10:15-0400 Body mass index (BMI) [Ratio] 39.93 kg/m2 Kevin Brewer Work Phone: [facility] 250 DO Work Phone: 08-12-2021 10:15-0400 Body surface area Derived from formula 2.62 m2 Kevin Scott Naderer Work Phone: [facility] 250 DO Work Phone: 08-12-2021 10:15-0400 Body weight 141.07 kg Kevin Scott Naderer Work Phone: [facility] 250 DO Work Phone: 08-12-2021 10:15-0400 Diastolic blood pressure 80 mm[Hg] Kevin Scott Naderer Work Phone: [facility] 250 DO Work Phone: 08-12-2021 10:15-0400 Heart rate 69 /min Kevin Scott Naderer Work Phone: [facility] 250 DO Work Phone: 08-12-2021 10:15-0400 Systolic blood pressure 130 mm[Hg] Kevin Scott Naderer Work Phone: [facility] 250 DO Work Phone: 08-09-2021 09:42-0400 Blood Pressure Location Yin HAWK [facility] 08-09-2021 09:42-0400 Diastolic blood pressure 80 mm[Hg] Yin HAWK [facility] 08-09-2021 09:42-0400 Heart rate 75 /min Yin HAWK [facility] 08-09-2021 09:42-0400 Respiratory rate 16 /min [facility] HAWK [facility] 08-09-2021 09:42-0400 Systolic blood pressure 134 mm[Hg] [facility] HAWK [facility] 02-15-2021 13:46-0500 Body height 187.96 cm Kevin Scott Naderer Work Phone: [facility] 250 DO Work Phone: 02-15-2021 13:46-0500 Body mass index (BMI) [Ratio] 39.67 kg/m2 Kevin Scott Naderer Work Phone: [facility] 250 DO Work Phone: 02-15-2021 13:46-0500 Body surface area Derived from formula 2.61 m2 Kevin Scott Naderer Work Phone: [facility] 250 DO Work Phone: 02-15-2021 13:46-0500 Body weight 140.16 kg Kevin Scott Naderer Work Phone: [facility] 250 DO Work Phone: 02-15-2021 13:46-0500 Diastolic blood pressure 80 mm[Hg] Kevin Lovelaceerer Work Phone: [facility] 250 DO Work Phone: 02-15-2021 13:46-0500 Heart rate 72 /min Kevin Scott Naderer Work Phone: [facility] 250 DO Work Phone: 02-15-2021 13:46-0500 Systolic blood pressure 118 mm[Hg] Kevin Scott Naderer Work Phone: [facility] 250 DO Work Phone: Encounters Encounter Date Encounter Type Care Provider Facility Start: 05-13-2024 ambulatory Yin Cain ty:UCHE Soria Start: 03-08-2024 End: 03-08-2024 Office outpatient visit 25 minutes Mary Presley Gleason INSTRUCTOR [employer]EL[employer]-DIAGNOSTIC RADIOLOGIC TECHNOLOGIST Work Phone: [facility] Comment on above: Malignant neoplasm o f prostate (Multi) (Primary Dx); Paroxysmal SVT (supraventricular tachycardia) (CMS-HCC); Body mass index (BMI) 40.0-44.9, adult (Multi); High risk medication use; Mixed hyperlipidemia; Primary hypertension; Bifascicular block; Morbid obesity with BMI of 40.0-44.9, adult (Multi); Obstructive sleep apnea syndrome Start: 03-08-2024 End: 03-08-2024 ambulatory MARY Sakina [facility] Ambulatory Start: 02-22-2024 End: 02-22-2024 ambulatory Dayna Pulido DUPLICATING MACHINE MECHANIC Work Phone: [facility] Comment on above: Lumbar radiculopathy (Primary Dx); Chronic right-sided low back pain with right-sided sciatica Start: 02-17-2024 End: 02-17-2024 Office outpatient visit 15 minutes Kevin Brewer MD Work Phone: [facility] Comment on above: Chronic right hip pa in (Primary Dx); Degeneration of intervertebral disc of lumbar region with discogenic back pain and lower extremity pain Start: 02-17-2024 End: 02-17-2024 ambulatory Dayna Pulido DUPLICATING MACHINE MECHANIC Work Phone: [facility] Comment on above: Lumbar radiculopathy (Primary Dx); Chronic right-sided low back pain with right-sided sciatica Start: 02-15-2024 End: 02-15-2024 Bamboo flowsheet Dayna Pulido DUPLICATING MACHINE MECHANIC Work Phone: [facility] Start: 02-15-2024 End: 02-15-2024 Bamboo flowsheet Dayna Pulido DUPLICATING MACHINE MECHANIC Work Phone: [facility] Start: 02-15-2024 End: 02-15-2024 ambulatory Dayna Pulido DUPLICATING MACHINE MECHANIC Work Phone: [facility] Comment on above: Lumbar radiculopathy (Primary Dx); Chronic right-sided low back pain with right-sided sciatica Start: 02-10-2024 End: 02-10-2024 Bamboo flowseve Pulido DUPLICATING MACHINE MECHANIC Work Phone: [facility] Start: 02-10-2024 End: 02-10-2024 Bamboo flowsheet Dayna Pulido DUPLICATING MACHINE MECHANIC Work Phone: [facility] Start: 02-10-2024 End: 02-10-2024 ambulatory Dayna Pulido DUPLICATING MACHINE MECHANIC Work Phone: [facility] Comment on above: Lumbar radiculopathy (Primary Dx); Chronic right-sided low back pain with right-sided sciatica Start: 02-08-2024 End: 02-08-2024 Bamboo moi Pulido DUPLICATING MACHINE MECHANIC Work Phone: [facility] Start: 02-08-2024 End: 02-08-2024 Bamboo moi Pulido DUPLICATING MACHINE MECHANIC Work Phone: [facility] Start: 02-08-2024 End: 02-08-2024 ambulatory Dayna Pulido DUPLICATING MACHINE MECHANIC Work Phone: [facility] Comment on above: Lumbar radiculopathy (Primary Dx); Chronic right-sided low back pain with right-sided sciatica Start: 02-05-2024 End: 02-05-2024 Bamboo flowsheet Cheryl Kelbley DUPLICATING MACHINE MECHANIC [facility] Start: 02-05-2024 End: 02-05-2024 Bamboo flowsheet Cheryl Kelbley DUPLICATING MACHINE MECHANIC [facility] Start: 02-05-2024 End: 02-05-2024 ambulatory Cheryl Kelbley DUPLICATING MACHINE MECHANIC [facility] Comment on above: Lumbar radiculopathy (Primary Dx); Chronic right-sided low back pain with right-sided sciatica Start: 02-03-2024 End: 02-03-2024 Bamboo flowsheet Dayna Pulido DUPLICATING MACHINE MECHANIC Work Phone: [facility] Start: 02-03-2024 End: 02-03-2024 Bamboo flowsheet Dayna Pulido DUPLICATING MACHINE MECHANIC Work Phone: [facility] Start: 02-03-2024 End: 02-03-2024 ambulatory Dayna Pulido DUPLICATING MACHINE MECHANIC Work Phone: [facility] Comment on above: Lumbar radiculopathy (Primary Dx); Chronic right-sided low back pain with right-sided sciatica Start: 01-27-2024 End: 01-27-2024 Bamboo flowsheet Franchesca Rushing Marina PT Work Phone: [facility] Start: 01-27-2024 End: 01-27-2024 Bamboo flowsheet Franchesca Rushing Marina PT Work Phone: [facility] Start: 01-27-2024 End: 01-27-2024 ambulatory Franchesca Rushing Marina PT Work Phone: [facility] Comment on above: Lumbar radiculopathy (Primary Dx); Chronic right-sided low back pain with right-sided sciatica Start: 01-25-2024 End: 01-25-2024 Bamboo flowsheet Dayna Pulido DUPLICATING MACHINE MECHANIC Work Phone: [facility] Start: 01-25-2024 End: 01-25-2024 Bamboo flowseve Pulido DUPLICATING MACHINE MECHANIC Work Phone: [facility] Start: 01-25-2024 End: 01-25-2024 ambulatory Dayna Pulido DUPLICATING MACHINE MECHANIC Work Phone: [facility] Comment on above: Lumbar radiculopathy (Primary Dx); Chronic right-sided low back pain with right-sided sciatica Start: 01-21-2024 End: 01-21-2024 Bamboo flowsheet Dayna Pulido DUPLICATING MACHINE MECHANIC Work Phone: [facility] Start: 01-21-2024 End: 01-21-2024 Bamboo flowsheet Dayna Pulido DUPLICATING MACHINE MECHANIC Work Phone: [facility] Start: 01-21-2024 End: 01-21-2024 ambulatory Dayna Pulido DUPLICATING MACHINE MECHANIC Work Phone: [facility] Comment on above: Lumbar radiculopathy (Primary Dx); Chronic right-sided low back pain with right-sided sciatica Start: 01-20-2024 End: 01-20-2024 Bamboo flowsheet Franchesca Gray PT Work Phone: [facility] Start: 01-20-2024 End: 01-20-2024 Bamboo flowsheet Franchesca Gray PT Work Phone: [facility] Start: 01-20-2024 End: 01-20-2024 ambulatory Franchesca Gray PT Work Phone: [facility] Comment on above: Lumbar radiculopathy (Primary Dx); Chronic right-sided low back pain with right-sided sciatica Start: 01-14-2024 End: 01-14-2024 Bamboo flowsheet Tanja Ding PT Work Phone: [facility] Start: 01-14-2024 End: 01-14-2024 Bamboo flowsheet Tanja Ding PT Work Phone: [facility] Start: 01-14-2024 End: 01-14-2024 ambulatory Tanja Ding PT Work Phone: [facility] [...] 25 minutes Kevin Brewer MD Work Phone: [facility] Comment on above: Essential hypertensi on, benign [...] 12-02-2023 End: 12-02-2023 Bamboo flowsheet Naida Hobson RADIATOR FITTER Work Phone: [address] [facility] Start: 12-02-2023 End: 12-02-2023 Bamboo flowseve Hobson RADIATOR FITTER Work Phone: [address] Start: 12-02-2023 End: 12-02-2023 ambulatory NAIDA HOBSON Not Available Start: 12-02-2023 End: 12-02-2023 Office outpatient visit 25 minutes Naida Hobson RADIATOR FITTER Work Phone: [address] Comment on above: Morbid obesity due t o excess calories (CMS/HCC) (Primary Dx); RENAE on CPAP; Hypoxia; Snoring; Daytime hypersomnolence Start: 11-17-2023 End: 11-17-2023 ambulatory [facility] Work Phone: Start: 11-17-2023 End: 11-17-2023 Departed Referred DO [facility] Work Phone: [facility] Start: 10-28-2023 End: 10-28-2023 Bamboo flowsheet Franchesca Newmanett DO Work Phone: [facility] Start: 10-28-2023 End: 10-28-2023 Bamboo flowsheet Franchesca Newmanett DO Work Phone: [facility] Start: 10-28-2023 End: 10-28-2023 Patient encounter procedure Franchesca Nj DO Work Phone: [facility] [employer] Comment on above: Encounter for screen ing colonoscopy (Primary Dx) Start: 10-28-2023 End: 10-28-2023 ambulatory FRANCHESCA [place] Not Available Start: 07-13-2023 End: 07-13-2023 ambulatory FRANCHESCA [place] Not Available Start: 06-29-2023 End: 06-29-2023 ambulatory KEVIN BREWER Not Available Start: 05-11-2023 End: 05-12-2023 ambulatory Yin HAWK Facility: [facility] Start: 05-11-2023 End: 05-11-2023 Patient encounter procedure Yin HAWK [facility] Start: 04-07-2023 End: 04-07-2023 ambulatory Demond BUTLER Facility:[facility] Start: 04-07-2023 End: 04-07-2023 Patient encounter procedure Demond Butler MD Work Phone: Radiation Oncology Comment on above: Malignant neoplasm o f prostate (HCC) (Primary Dx) Start: 02-10-2023 End: 02-10-2023 Office outpatient visit 25 minutes Parveen Santo MD Work Phone: [facility] Comment on above: Paroxysmal SVT (supr aventricular tachycardia) (Primary Dx); Primary hypertension; Mixed hyperlipidemia; Morbid obesity with BMI of 40.0-44.9, adult (CMS/HCC); Bifascicular block Start: 09-30-2022 End: 09-30-2022 ambulatory KEVIN BREWER Facility:[facility] Start: 09-30-2022 End: 09-30-2022 Patient encounter procedure Demond Butler MD Work Phone: Radiation Oncology Comment on above: Malignant neoplasm o f prostate (HCC) (Primary Dx) Start: 09-08-2022 End: 09-09-2022 ambulatory Yin HAWK Facility:[facility] Start: 09-08-2022 End: 09-08-2022 Patient encounter procedure Yin HAWK [facility] Start: 07-25-2022 Rx Renewal Kevin Brewer Work Phone: [facility] 250 DO Work Phone: Start: 07-02-2022 End: 07-03-[address] KEVIN BREWER Facility:[facility] Start: 04-07-2022 Rx Renewal Kevin Brewer Work Phone: [facility] 250 DO Work Phone: Start: 04-01-2022 End: 04-01-2022 ambulatory Yancy Oneill APRN.DIAGNOSTIC RADIOLOGIC TECHNOLOGIST Work Phone: Hematology/Oncology Comment on above: Prostate cancer (HCC ) Start: 04-01-2022 End: 04-01-2022 Patient encounter procedure Yancy Oneill APRN.DIAGNOSTIC RADIOLOGIC TECHNOLOGIST Work Phone: [facility] Comment on above: Malignant neoplasm o f prostate (HCC) (Primary Dx) Start: 03-21-2022 End: 03-21-2022 Patient encounter procedure Yin HAWK [facility] Start: 03-11-2022 End: 03-12-[address] KEVIN BREWER Facility:[facility] Start: 02-11-2022 ambulatory Parveen Santo II Facility: Start: 02-11-2022 Office outpatient vi sit 15 minutes [facility] Work Phone: Start: 02-05-2022 Telephone encounter G Chavez Butler MD Work Phone: Radiation Oncology Comment on above: Future Appointment Start: 01-14-2022 Rx Renewal Kevin A [facility]aderer [facility] Work Phone: Start: 09-30-2021 End: 09-30-2021 Patient encounter procedure Yin HAWK [facility] Start: 09-23-2021 End: 09-24-[address] KEVIN BREWER Facility:[facility] Start: 08-14-2021 End: 08-14-2021 Patient encounter procedure Demond Butler MD Work Phone: Radiation Oncology Comment on above: Malignant neoplasm o f prostate (HCC) (Primary Dx) Start: 08-12-2021 Patient encounter procedure [facility] Brew[facility] Toy[employer] [facility] Work Phone: Start: 08-12-2021 ambulatory Parveen Santo II Facility: Start: 08-09-2021 End: 08-09-2021 Patient encounter procedure Yin HAWK [facility] Start: 08-05-2021 Telephone encounter Demond Butler MD Work Phone: Radiation Oncology Comment on above: FYI-No Action Needed ; Covid19 Concern Start: 07-25-2021 Patient encounter procedure Demond Butler MD Work Phone: [facility] Start: 07-25-2021 Radiation Oncology Note Demond Butler MD Work Phone: Radiation Oncology Comment on above: Simulation Note Start: 07-25-2021 End: 07-25-2021 Subsequent hospital visit by physician Pet Ct Scan [facility] Work Phone: Radiology Pet CT Start: 07-24-2021 AUDIT Kevin Brewer [facility] DO Work Phone: Start: 07-16-2021 End: 07-17-[address] KEVIN BREWER Facility:[facility] Start: 07-04-2021 End: 07-04-2021 Patient encounter procedure Abdulaziz DAWSON [facility] Start: 06-27-2021 End: 06-28-2021 Patient [...] 04-26-2021 Rx Renewal Kevin Brewer Work Phone: [facility] 250 DO Work Phone: Start: 04-09-2021 End: 04-09-2021 Subsequent hospital visit by physician Demond Butler MD Work Phone: Radiology Pet CT Start: 02-15-2021 ambulatory Parveen Santo II Facility: Start: 02-15-2021 Office outpatient vi sit 15 minutes Kevin Brewer Work Phone: [facility] 250 DO Work Phone: Start: 01-22-2021 Rx Renewal Kevin Brewer Work Phone: [facility] 250 DO Work Phone: Procedures Date Procedure Procedure Detail Performing Clinician Start: 03-08-2024 Ecg routine ecg w/le ast 12 lds w/i&r Mary Tam INSTRUCTOR CREELER-DIAGNOSTIC RADIOLOGIC TECHNOLOGIST Work Phone: Start: 12-03-2023 MHPT PSA, DIAGNOSTIC Ge neric External Data Provider Start: 11-17-2023 Colonoscopy Naida Alcantar sarah RADIATOR FITTER Work Phone: Start: 08-25-2023 Colonoscopy Franchesca Lowery tt DO Work Phone: Start: 03-31-2023 PSA screening [facility] Provi kilo Start: 02-10-2023 Ecg routine ecg w/le ast 12 lds w/i&r Parveen Santo MD Work Phone: Start: 08-29-2022 PSA screening [facility] Provi kilo Start: 03-11-2022 End: 03-11-2022 PSA screening [facility] Provider Comment on above: Performed By: #### P SAD #### [facility] [address] [place] [address] Dr. Shama Naylor Start: 09-23-[address] KEVIN BROOKS Comment on above: Performed By: #### P SAD #### [facility] [address] [address] [address] Shama Naylor Start: 07-16-2021 End: 07-16-2021 PSA screening [facility] Provider Comment on above: Performed By: #### P SAD #### [facility] [address] [address] [address] Shama Naylor Start: 06-27-2021 Brachytherapy Yin W MITCHEL Start: 03-14-2021 Transrectal biopsy o f prostate Abdulaziz DAWSON Arthroplasty of wrist Abdulaziz EUNICE Colonoscopy Abdulaziz DAWSON Surgical repair of u pper extremity Kevin A Naderer Work Phone: Total colonoscopy Kevin A Nad erer Work Phone: Plan of Treatment Date Care Activity Detail Author Start: 11-16-2033 Screening for malign ant neoplasm of colon [facility] Start: 08-24-2033 Screening for malign ant neoplasm of colon [facility] Start: 2025 RSV Vaccine (1 - 1-d ose 75+ series) RSV Vaccine (1 - 1-dose 75+ series) [facility] Start: 12-20-2024 Medicare Annual Well ness (AWV) Medicare Annual Wellness (AWV) [facility] Start: 09-05-2024 End: 09-05-2024 Patient encounter procedure 09/05/2024 10:00 AM EDT Office Visit [place] [id number] [facility] [address] [place] [address] Esther Mejía MD [address] [facility] [address] [place] [address] [facility] Start: 04-05-2024 End: 04-05-2024 Patient encounter procedure 04/05/2024 1:15 PM EST Office Visit Radiation Oncology [address] [place] [address] Demond Butler MD [address] [place] [address] 1 yr rv Radiation Oncology Comment on above: 1 yr rv Start: 03-23-2024 End: 03-23-2024 Patient encounter procedure 03/23/2024 9:00 AM EST Office Visit [facility] [address] [place] [address] Kevin Brewer MD [address] [place] [address] [facility] Start: 03-08-2024 End: 03-08-2024 Patient encounter procedure 03/08/2024 9:00 AM EST Office Visit [facility] [address] [facility] [address] [place] [address] Parveen Santo MD [address] [facility] [address] [place] [address] [facility] Start: 02-22-2024 End: 02-22-2024 ambulatory 02/22/2024 7:00 AM EST Treatment [facility] [address] [place] [address] Dayna Pulido, DUPLICATING MACHINE MECHANIC [address] [place] [address] [facility] Start: 02-17-2024 End: 02-16-2025 XR Hip - right 3 Views XR hip right 2 or 3 views Imaging Routine Chronic right hip pain Expected: 02/17/2024, Expires: 02/16/2025 [facility] Work Phone: Comment on above: Expected: 02/17/2024 , Expires: 02/16/2025 Start: 02-17-2024 End: 02-17-2024 Patient encounter procedure 02/17/2024 1:30 PM EST Office Visit [facility] [address] [place] [address] Kevin Brewer MD [address] [place] [address] [facility] Start: 02-17-2024 End: 02-17-2024 ambulatory 02/17/2024 9:00 AM EST Treatment [facility] [address] [place] [address] Dayna Pulido, DUPLICATING MACHINE MECHANIC [address] [place] [address] [facility] Start: 02-15-2024 End: 02-15-2024 [...] Treatment [facility] [address] [facility] [id number] Franchesca Gray, PT [address] [place], [place] [id number] Arrived [facility] Comment on above: [...] 12/21/2023 8:45 AM EDT Office Visit [facility] [address] [place] [address] Kevin Brewer MD [address] [place] [address] [facility] Start: 11-01-2023 COVID-19 Vaccine ( season) COVID-19 Vaccine () [facility] Start: 11-01-2023 Covid-19 Vaccine () Covid-19 Vaccine () [facility] Start: 11-01-2023 Influenza vaccination Influenza Vacc ine (#1) [facility] Start: 10-28-2023 End: 10-28-2023 Patient encounter procedure 10/28/2023 10:00 AM EDT Office Visit ANNA MERCADO [address] [place] [address] Franchesca Nj [address] [place] [address] Arrived [facility] Comment on above: Arrived Start: 04-07-2023 End: 07-07-2023 Prostate specific Ag [Mass/volume] in Serum or Plasma PSA/PROSTSPECAG DIAG Lab Routine Malignant neoplasm of prostate (HCC) Expected: 04/07/2023, Expires: 07/07/2023 [facility] Work Phone: Comment on above: Expected: 04/07/2023 , Expires: 07/07/2023 Start: 04-02-2023 End: 06-02-2023 Prostate specific Ag [Mass/volume] in Serum or Plasma PSA/PROSTSPECAG DIAG Lab Routine Malignant neoplasm of prostate (HCC) Expected: 04/02/2023 (Approximate), Expires: 06/02/2023 [facility] Work Phone: Comment on above: Expected: 04/02/2023 (Approximate), Expires: 06/02/2023 Start: 03-02-2023 Advance Directive Discussion Advance Directive Discussion [facility] Start: 03-02-2023 Depression Assessment Depression Ass essment [facility] Start: 02-10-2023 FUV, Provider: Parveen Santo, Status: Navarro, Time: 11:00 AM FUV, Provider: Parveen Santo, Status: Navarro, Time: 11:00 AM -[facility] 250 DO Work Phone: Start: 10-31-2022 Covid-19 Vaccine ( season) Covid-19 Vaccine () [facility] Start: 10-31-2022 Influenza vaccination C [facility] Start: 03-02-2022 ADVANCE DIRECTIVE DISCUSSION ADVANCE DIRECTIVE DISCUSSION [facility] Start: 03-02-2022 DEPRESSION ASSESSMENT DEPRESSION ASS ESSMENT [facility] Start: 02-11-2022 FUV, Provider: Parveen Santo, Status: Pen, Time: 10:50 AM FUV, Provider: Parveen Santo, Status: Pen, Time: 10:50 AM [facility] 250 DO Work Phone: Start: 10-31-2021 Influenza vaccination C [facility] Start: 04-15-2021 COVID-19 VACCINE (4 - Booster for Pfizer series) COVID-19 VACCINE (4 - Booster for Pfizer series) [facility] Start: 03-02-2021 ADVANCE DIRECTIVE DISCUSSION ADVANCE DIRECTIVE DISCUSSION [facility] Start: 03-02-2021 DEPRESSION ASSESSMENT DEPRESSION ASS ESSMENT [facility] Start: 02-15-2021 FUV, Provider: Parveen Santo, Status: Pen, Time: 1:30 PM FUV, Provider: Parveen Santo, Status: Pen, Time: 1:[address] [facility] 250 DO Work Phone: Start: 02-07-2021 COVID-19 VACCINE (4 - Booster for Pfizer series) COVID-19 VACCINE (4 - Booster for Pfizer series) [facility] Start: 02-07-2021 COVID-19 VACCINE (4 - Pfizer series) COVID-19 VACCINE (4 - Pfizer series) [facility] Start: 07-02-2015 Abdominal aortic aneurysm screening Abdominal Aortic Aneurysm (AAA) Screening [facility] Start: 07-02-2015 Pneumococcal Vaccine : 65+ (1 of 1 - PCV) Pneumococcal Vaccine: 65+ (1 of 1 - PCV) [facility] Start: 07-02-2015 Pneumococcal Vaccine : 65+ Years (1 - PCV) Pneumococcal Vaccine: 65+ Years (1 - PCV) [facility] Start: 07-02-2015 Pneumococcal Vaccine : 65+ Years (1 of 1 - PCV) Pneumococcal Vaccine: 65+ Years (1 of 1 - PCV) [facility] Start: 07-02-2015 PNEUMOCOCCAL: 65+ (1 - PCV) PNEUMOCOCCAL: 65+ (1 - PCV) [facility] Start: 07-02-2015 PNEUMOVAX AGE 65 AND OVER WITH 5YR LOOKBACK (#1) PNEUMOVAX AGE 65 AND OVER WITH 5YR LOOKBACK (#1) [facility] Start: 2010 RSV High Risk: (Elde rly (60+) or Population) (1 - Risk 60-74 years 1-dose series) RSV High Risk: (Elderly (60+) or Population) (1 - Risk 60-74 years 1-dose series) [facility] Start: 2010 RSV Vaccine (1 - 1-d ose 60+ series) RSV Vaccine (1 - 1-dose 60+ series) [facility] Start: 2000 Pneumococcal vaccination Pneum ococcal Vaccine (1 of 1 - PCV) [facility] Start: 2000 SHINGRIX VACCINE (1 of 2) SHINGRIX VACCINE (1 of 2) [facility] Start: 2000 Zoster Vaccines (1 of 2) Zoste r Vaccines (1 of 2) [facility] Start: 07-02-1995 COLOGUARD (FIT-DNA) COLOGUARD (FIT-D NA) [facility] Start: 07-02-1995 Colonoscopy COLONOSCOPY [facility] Start: 07-02-1995 COLORECTAL CANCER SCREENING COLORECTAL CANCER SCREENING [facility] Start: 07-02-[address] COLONOGRAPHY [facility] Start: 07-02-1995 DIABETES SCREEN DIABETES SCREEN [facility] Start: 07-02-1995 Diabetes Screening Diabetes Screenin g [facility] Start: 07-02-1995 FECAL OCCULT BLOOD FECAL OCCULT BLOO D [facility] Start: 07-02-1995 Screening for malign ant neoplasm of colon [facility] Start: 07-02-1995 SIGMOIDOSCOPY SIGMOIDOSCOPY [facility] Start: 1985 Lipid panel Lipid Screening [facility] Start: 1985 LIPID SCREEN LIPID SCREEN [facility] Start: 1972 DTaP/Tdap/Td Vaccine s (1 - Tdap) DTaP/Tdap/Td Vaccines (1 - Tdap) [facility] Start: 1969 SHINGRIX VACCINE (1 of 2) SHINGRIX VACCINE (1 of 2) [facility] Start: 1969 Urine microalbumin profile [facility] Start: 1968 Anxiety Screening Anxiety Screening [facility] Start: 1968 Depression Screening Depression Scre ening [facility] Start: 1968 Diabetes mellitus screening Diabetes Screening [facility] Start: 1968 HEPATITIS C SCREENING HEPATITIS C [facility] Start: 1968 Hepatitis C screening Hepatitis C [facility] Start: 1962 Adult depression screening assessment DEPRESSION SCREENING [facility] Start: 1956 PNEUMOCOCCAL: 65+ (1 - PCV) PNEUMOCOCCAL: 65+ (1 - PCV) [facility] Start: 1950 ABDOMINAL AORTIC ANEURYSM SCREENING ABDOMINAL AORTIC ANEURYSM SCREENING [facility] Start: 1950 Abdominal aortic aneurysm screening Abdominal Aortic Aneurysm Screening [facility] Start: 1950 Lipid panel Lipid Panel [facility] Start: 1950 Medicare Annual Well ness (AWV) Medicare Annual Wellness (AWV) [facility] Start: 1950 Medicare Annual Well ness Visit Medicare Annual Wellness Visit (AWV) [facility] Start: 1950 Screening for malign ant neoplasm of colon [facility] ECG 12 Lead ECG 12 Lead ECG Routine High risk medication use 03/08/2024 9:00 AM EST [facility] Service Area Work Phone: [facility] Immunizations Immunization Date Immunization Notes Care Provider Concha lopez 11-28-2021 Fluzone High-Dose Quadrivalent 0.7 ML Intramuscular Suspension Prefilled Syringe Kevin Brewer Work Phone: [facility] 250 DO Work Phone: 11-28-2021 influenza virus vaccine, unspecified formulation Yin HAWK [facility] 11-28-2021 influenza, high dose seasonal, preservative-free Parveen Santo MD Work Phone: [facility] Work Phone: 12-13-2020 Pfizer-BioNTech COVID-19 Vacc 30 MCG/0.3ML Intramuscular Suspension Kevin A Naderer Work Phone: [facility] 05-19-2020 Pfizer-BioNTech COVID-19 Vacc 30 MCG/0.3ML Intramuscular Suspension Kevin A Naderer Work Phone: [facility] 04-28-2020 Pfizer-BioNTech COVID-19 Vacc 30 MCG/0.3ML Intramuscular Suspension Kevin A Naderer Work Phone: [facility] 03-02-2020 SARS-CoV-2 (COVID-19 ) mRNA [id number] vax Abdulaziz DAWSON [facility] Comment on above: Result Comment: pt i s fully vaccinated and has received the booster but does not remember the dates 12-14-2019 influenza virus vaccine, unspecified formulation Yin HAWK [facility] 12-14-2019 influenza, injectabl e, quadrivalent, preservative free Kevin A Naderer Work Phone: [facility] [employer] DO Work Phone: 12-01-2019 influenza virus vaccine, unspecified formulation Yin HAWK [facility] 12-01-2019 influenza, seasonal, injectable Kevin A Naderer Work Phone: [facility] 250 DO Work Phone: 02-09-2012 influenza virus vaccine, unspecified formulation Yin [facility] 02-09-2012 influenza, seasonal, injectable Kevin A Naderer Work Phone: [facility] 250 DO Work Phone: Payers Date Payer Category Payer Self-pay [id number] 2020 Medicare supplementa l policy (as second payer) [employer] SENIOR SUPPLEMENT [id number] 2020 Private Health Insurance AETSARAVANAN Sonia VANIASARAVANAN MEDICARE SUPPLEMENT [id number] 2020-Present [phone] [address] [address] [place] [address] Indemnity [id number] 2020 Private Health Insurance [id number] 2015 Medicare MEDICARE MEDICAR E A AND B [id number] 2015-Present [phone] [address] [address] [place] [address] Medicare [id number] 2015 Medicare [id number] 1959 Medicare [id number] 1959 Private Health Insurance ACC [id number] 1950 Unknown [id number] 2.16.840.1.288309.3.579.2 .356 1950 Unknown [id number] 2.16.840.1.196810.3.579.2 .356 1950 Unknown [id number] 2.16.840.1.404319.3.579.2 .356 1950 Unknown [id number] 2.16.840.1.346696.3.579.2 .593 1950 Unknown [id number] 2.16.840.1.966653.3.579.2 .593 1950 Unknown [id number] 2.16.840.1.037572.3.579.2 .593 1950 Unknown [id number] 2.16.840.1.726264.3.579.2 .593 1950 Unknown [id number] 2.16840.1.637229.3.579.2 .727 1950 Unknown [id number] 2.16.840.1.287120.3.579.2 .727 1950 Unknown [id number] 2.16.840.1.810272.3.579.2 .727 1950 Unknown [id number] 2.16.840.1.402632.3.579.2 .1259 1950 Unknown [id number] 2.16840.1.640398.3.579.2 .125 1950 Unknown [id number] 2.16.840.1.068095.3.579.2 .1259 1950 Unknown [id number] 2.16.840.1.071022.3.579.2 .125 1950 Unknown [id number] 2.16.840.1.695021.3.579.2 .1259 1950 Unknown [id number] 2.16.840.1.249394.3.579.2 .125 1950 Unknown [id number] 2.16.840.1.461203.3.579.2 .1258 1950 Unknown [id number] 2.16.840.1.218058.3.579.2 .1258 1950 Unknown [id number] 2.16.840.1.814855.3.579.2 .1258 1950 Unknown [id number] 2.16.840.1.194884.3.579.2 .1258 1950 Unknown [id number] 2.16.840.1.466011.3.579.2 .1258 1950 Unknown [id number] 2.16.840.1.290122.3.579.2 .1258 1950 Unknown [id number] 2.16.840.1.407104.3.579.2 .1258 1950 Unknown [id number] 2.16.840.1.021404.3.579.2 .1258 1950 Unknown [id number] 2.16.840.1.835331.3.579.2 .1258 1950 Unknown [id number] 2.16.840.1.298860.3.579.2 .1258 1950 Unknown [id number] 2.16.840.1.043855.3.579.2 .1258 1950 Unknown [id number] 2.16.840.1.261358.3.579.2 .1258 1950 Unknown [id number] 2.16.840.1.323830.3.579.[address] [facility] [id number] Unknown [id number] 2.16.840.1.595097.3.579.2 .531 Social History Date Type Detail Facility Start: 05-20-2021 End: 03-08-2024 Alcohol use Alcohol use [facility] Comment on above: 4 8 oz cups of coffe e/occasional decaf coffee; Quit in 1970s; Start: 04-03-2021 End: 03-08-2024 Tobacco smoking status NHIS Ex-smoker [facility] End: 04-03-1981 History of tobacco use Current smoker [facility] End: 04-03-1981 History of tobacco use Pipe Smoker [facility] End: 04-03-1981 History of tobacco use Cigar Smoker [facility] Start: 04-03-2021 End: 12-02-2023 Tobacco use and exposure Smokeless tobacco non-user [facility] Start: 05-20-2021 End: 03-08-2024 Alcohol intake Current drinker of alcohol (finding) [facility] Start: 04-03-2021 History SDOH Alcohol Comment 2-3 times/wk [facility] Start: 1950 Sex Assigned At Not on file [facility] Start: 03-10-2021 End: 03-08-2024 Exposure to SARS-CoV-2 (event) Not sure [facility] Start: 05-20-2021 End: 03-08-2024 Sex Assigned At Male [facility] Tobacco smoking status No Smokin g Status Entered [facility] Start: 03-21-2022 Tobacco smoking status Never s moked tobacco (finding) [facility] Start: 05-11-2023 Tobacco smoking status Never [facility] End: 03-02-1969 History of tobacco use Cigarette Smoker [facility] Work Phone: Start: 02-06-2023 Alcohol Comment [facility] Work Phone: Start: 1950 Sex Assigned At Male [facility] Do you belong to any clubs or organizations such as evangelical groups, unions, fraternal or athletic groups, or [...] 05-11-2023 Functional Status N/A [facility] 09-08-2022 Functional Status N/A [facility] 03-21-2022 Functional Status N/A [facility] 09-30-2021 Functional Status N/A [facility] Clinical Notes 06-11-2021 to 03-08-2024 Assessment & Plan Note - GENA iHll - 03/08/2024 12:48 PM ESTAssessment & Plan Note - GENA Hill - 03/08/2024 12:48 PM ESTPatient InstructionsPatient Instructions Note Date & Type Note Facility 03-08-2024 Evaluation + Plan note Associated Problem(s): Morbid obesity with BMI of 40.0-44.9, adult (Multi) Reviewed the merits of healthy lifestyle choices on overall cardiovascular health. [facility] Work Phone: 03-08-2024 Evaluation + Plan note Associated Problem(s): Bifascicular block Jan [address] Santo : We discussed the concept of ablation. I note that he has bifascicular heart block and I believe this puts him at increased risk for unintended complete heart block if in fact an attempt was made at performing an atrioventricular marcia modification. Because of this I believe continued pharmacologic therapy to be an appropriate and potentially safer approach than ablation. [facility] Work Phone: 03-08-2024 Miscellaneous Notes Associated Problem(s): Morbid obesity with BMI of 40.0-44.9, adult (Multi) Reviewed the merits of healthy lifestyle choices on overall cardiovascular health. Associated Problem(s): Bifascicular block Jan [address] Santo : We discussed the concept of ablation. I note that he has bifascicular heart block and I believe this puts him at increased risk for unintended complete heart block if in fact an attempt was made at performing an atrioventricular marcia modification. Because of this I believe continued pharmacologic therapy to be an appropriate and potentially safer approach than ablation. Associated Problem(s): Paroxysmal SVT (supraventricular tachycardia) ([facility]) Initial diagnosis August 2019 Has remained quiescent on propafenone since June 2021 EKG in office maintaining normal sinus rhythm with bifascicular block Associated Problem(s): Hypertension Optimal in office Associated Problem(s): HLD (hyperlipidemia) Low intensity statin Reports he is due for annual labs April 2024 Associated Problem(s): Cardiac and Vasculature Patient originally seen in cardiology consult August 2019 presented to hospital with heart rate greater than 200 bpm. Follow-up [facility] revealed SVT and was maintained on Cardizem until June 2021 at which time noted increasing episodes of palpitation and was initiated on propafenone. Cardiovascular testing included: August 2019 TTE LVEF 55 to 6% Left atrium mildly dilated LVH moderate November 2019 MPI no ischemia, no infarct Associated Problem(s): High risk medication use Propafenone initiated June 2021 EKG in office maintaining normal sinus rhythm November 2019 MPI no ischemia, no infarct August 2019 TTE LVEF 55 to 60% Associated Problem(s): Obstructive sleep apnea syndrome Compliant with meds documented in this encounter [facility] Work Phone: 03-08-2024 Evaluation + Plan note Associated Problem(s): Paroxysmal SVT (supraventricular tachycardia) (CMS-HCC) Initial diagnosis August 2019 Has remained quiescent on propafenone since June 2021 EKG in office maintaining normal sinus rhythm with bifascicular block [facility] Work Phone: 03-08-2024 Evaluation + Plan note Associated Problem(s): Hypertension Optimal in office [facility] Work Phone: 03-08-2024 Evaluation + Plan note Associated Problem(s): HLD (hyperlipidemia) Low intensity statin Reports he is due for annual labs April 2024 [facility] Work Phone: 03-08-2024 Evaluation + Plan note Associated Problem(s): Cardiac and Vasculature Patient originally seen in cardiology consult August 2019 presented to hospital with heart rate greater than 200 bpm. Follow-up [facility] revealed SVT and was maintained on Cardizem until June 2021 at which time noted increasing episodes of palpitation and was initiated on propafenone. Cardiovascular testing included: August 2019 TTE LVEF 55 to 6% Left atrium mildly dilated LVH moderate November 2019 MPI no ischemia, no infarct [facility] Work Phone: 03-08-2024 Evaluation + Plan note Associated Problem(s): High risk medication use Propafenone initiated June 2021 EKG in office maintaining normal sinus rhythm November 2019 MPI no ischemia, no infarct August 2019 TTE LVEF 55 to 60% [facility] Work Phone: 03-08-2024 Evaluation + Plan note Associated Problem(s): Obstructive sleep apnea syndrome Compliant with meds [facility] Work Phone: 03-08-2024 History of Present illness Narrative Chief Complaint Not too bad Reason for Visit Annual follow-up Patient presents to the office today for outpatient follow-up for PSVT and high risk med use. Last evaluated in clinic by Dr. Smith January 2023. Presents today ambulatory with cane and steady gait. Accompanied by patient Patient denies any hospitalizations or significant changes to interval medical history since last office follow-up. He follows routinely with PCP. Is due for annual labs next month. History of Present Illness Patient is an extremely pleasant 73 old gentleman who presents to the office with no voiced cardiovascular complaints. He has noted difficulty with ambulation and activity due to hip discomfort, has completed physical therapy and is doing stretching exercises and will likely be referred to orthopedics next month. 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 He had to use the snowblower over the weekend and feels worn out and relates that mostly due to deconditioning and excess weight. Discussed that if orthopedic procedure would be needed will need to complete stress testing for cardiac restratification, he will update me if needed. Otherwise, he continues to report the propafenone has done the trick and he denies any recurrent palpitations. He does consume probably 4 cups of coffee, social alcohol and remains compliant with CPAP machine. Patient reports that overall has no complaint(s) of chest pain, chest pressure/discomfort, claudication, dyspnea, exertional chest pressure/discomfort, fatigue, and irregular heart beat Daily activity: Less than 4 METS Reports decrease in exercise capacity or functional tolerance since last office visit; relates that mostly due to change in exercise capacity related to hip injury and decreased activity. The importance of primary prevention reviewed: HTN: Optimal HLD: Treated DM: Denies Smoker: Denies BMI: Reviewed the merits of healthy lifestyle choices on overall cardiovascular health. He uses Lasix on a rare basis for lower extremity edema. Review of Systems Cardiovascular: Negative for chest pain, dyspnea on exertion, irregular heartbeat, leg swelling, near-syncope, orthopnea, palpitations, paroxysmal nocturnal dyspnea and syncope. Visit Vitals BP 136/80 (BP Location: Left arm, Patient Position: Sitting) Pulse 68 Ht 1.88 m (6' 2 ) Wt 145 kg (320 lb) BMI 41.09 kg/m Smoking Status Former BSA 2.75 m Physical Exam Vitals and nursing note reviewed. Constitutional: Appearance: Normal appearance. Cardiovascular: Rate and Rhythm: Normal rate and regular rhythm. Heart sounds: Normal heart sounds. Pulmonary: Effort: Pulmonary effort is normal. Breath sounds: Normal breath sounds. Musculoskeletal: Cervical back: Full passive range of motion without pain. Right lower leg: No edema. Left lower leg: No edema. Skin: General: Skin is cool. Neurological: Mental Status: He is alert and oriented to person, place, and time. Psychiatric: Attention and Perception: Attention normal. Mood and Affect: Mood normal. Behavior: Behavior is cooperative. No Known Allergies Current Outpatient Medications Medication Instructions atorvastatin (LIPITOR) 10 mg, oral, Nightly dilTIAZem CD (CARDIZEM CD) 180 mg, oral, Daily before breakfast furosemide (LASIX) 40 mg, Daily PRN meloxicam (MOBIC) 15 mg, Daily potassium chloride CR 20 mEq ER tablet 20 mEq, Daily PRN propafenone (RYTHMOL) 150 mg, oral, 3 times daily tamsulosin (FLOMAX) 0.4 mg, Daily Assessment: Obstructive sleep apnea syndrome Compliant with meds High risk medication use Propafenone initiated June 2021 EKG in office maintaining normal sinus rhythm November 2019 MPI no ischemia, no infarct August 2019 TTE LVEF 55 to 60% Cardiac and Vasculature Patient originally seen in cardiology consult August 2019 presented to hospital with heart rate greater than 200 bpm. Follow-up [facility] revealed SVT and was maintained on Cardizem until June 2021 at which time noted increasing episodes of palpitation and was initiated on propafenone. Cardiovascular testing included: August 2019 TTE LVEF 55 to 6% Left atrium mildly dilated LVH moderate November 2019 MPI no ischemia, no infarct HLD (hyperlipidemia) Low intensity statin Reports he is due for annual labs April 2024 Hypertension Optimal in office Paroxysmal SVT (supraventricular tachycardia) ([facility]) Initial diagnosis August 2019 Has remained quiescent on propafenone since June 2021 EKG in office maintaining normal sinus rhythm with bifascicular block Bifascicular block Jan [address] Santo : We discussed the concept of ablation. I note that he has bifascicular heart block and I believe this puts him at increased risk for unintended complete heart block if in fact an attempt was made at performing an atrioventricular marcia modification. Because of this I believe continued pharmacologic therapy to be an appropriate and potentially safer approach than ablation. Morbid obesity with BMI of 40.0-44.9, adult (Multi) Reviewed the merits of healthy lifestyle choices on overall cardiovascular health. Plan: Through informed decision making process incorporating patients unique circumstances, the following treatment plan will be initiated: 1. Prescription drug management of cardiovascular medication for efficacy, adherence to treatment, side effect assessment and polypharmacy. Current treatment clinically warranted and to continue without modifications. 2. If you will need surgery for our hip please let me know so that I can arrange stress test for cardiac clearance 3. Return for follow-up; in the interim, contact the office if new symptoms arise. Dr. Mejía 6 months Discussed the dynamic nature of coronary artery disease and the importance of seeking medical attention if new symptoms arise. Mary Tam MSN, INSTRUCTOR CREELER-DIAGNOSTIC RADIOLOGIC TECHNOLOGIST, PMHNP-[facility] [place], [place] Please excuse any errors in grammar or translation related to this dictation. Voice recognition software was utilized to prepare this document. documented in this encounter [facility] Work Phone: 03-08-2024 Instructions GENA Hill - 03/08/2024 9:00 AM EST Please bring all medicines, vitamins, and herbal supplements with you when you come to the office. Prescriptions will not be filled unless you are compliant with your follow up appointments or have a follow up appointment scheduled as per instruction of your physician. Refills should be requested at the time of your visit. EKG done in office today PLAN: Through informed decision making process incorporating patients unique circumstances, the following treatment plan will be initiated: 1. Prescription drug management of cardiovascular medication for efficacy, adherence to treatment, side effect assessment and polypharmacy. Current treatment clinically warranted and to continue without modifications. 2. If you will need surgery for our hip please let me know so that I can arrange stress test for cardiac clearance 3. Return for follow-up; in the interim, contact the office if new symptoms arise. Dr. Mejía 6 months documented in this encounter [facility] Work Phone: 02-17-2024 History of Present illness Narrative Associated Problem(s): Degeneration of intervertebral disc of lumbar region with discogenic back pain and lower extremity pain Continued pain and hard to walk. Continue mobic. Refer to pain management for evaluation. Associated Problem(s): Chronic right hip pain Pain in hip and groin, possibly related to arthritis. Check x-ray. Refer to pain management for evaluation and possible injections. Images from the original note were not included. Subjective Patient ID: Luis Luis is a 73 y.o. male who presents for Hip Pain (Right hip pain). C/o right hip pain for months and getting worse. Pain in back hip across belt line and outer hip. Occasional pain into right groin. Pain with walking and standing. Hard to get up from sitting. MRI lumbar spine showed degenerative changes and narrowing but no nerve involvement. 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 Using mobic daily and helps. PT has helped tightness but continued pain. Using tylenol PRN and helps. Review of Systems Constitutional: Negative for fatigue. [...] Assessment/Plan Problem List Items Addressed This Visit Degeneration of intervertebral disc of lumbar region with discogenic back pain and lower extremity pain Continued pain and hard to walk. Continue mobic. Refer to pain management for evaluation. Relevant Orders Ambulatory referral to Pain Medicine Chronic right hip pain - Primary Pain in hip and groin, possibly related to arthritis. Check x-ray. Refer to pain management for evaluation and possible injections. 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 X 15 minutes of therapeutic exercises: flexion based, self innom rotation METs PT Assessment: Therapy Diagnosis: LBP, sciatica, pain decreased with manual therapy Functional Limitations: Oswestry low back questionnaire: 12/50 points, 24% impairment Halfway Goals: in 6 weeks Centralize symptoms to low back only in 2-3 weeks. No sleep disturbance, pain with lifting leg in 2-3 weeks Pt able to walk, ride stationary bike for exercise without increase in pain Home program in place 0-04/11 pain with pt able to manage indep Rehab Potential: Good Plan: PT 1-2x/week x 6 weeks Treatment: manual therapy, therapeutic exercises, modalities as needed for pain and inflammation. I hereby deem this POC medically necessary. Please sign below and fax back to the number below. Physician Signature: Date: Cosigned by Kevin Brewer MD at 01/16/2024 3:48 PM EST documented in this encounter [facility] 12-21-2023 History of Present illness Narrative Associated [...] spine wo contrast documented in this encounter [facility] 10-28-2023 History of Present illness Narrative General Surgery H&P Luis Luis 1950 Luis Luis is a 73 y.o. male presents with chief complaint of Colonoscopy (Pt presents today for a colonoscopy consult. He states that he has had 2 colonoscopy's before, first one 10 years ago and he had one a few months ago, but the prep did not work. He states that he felt more constipated from the prep. He denies changes in bowel movements. Abdominal pain or any family hx of colon cancer. ) Denies melena or hematochezia. Denies changes in caliber of stools. Denies hx of unplanned weight loss. Denies fevers, chills, or sweats. Denies nausea or vomiting. Last colonoscopy was poor prep of this year 2023 SUBJECTIVE: MEDICATIONS: ALLERGIES Current Outpatient Medications Medication Instructions atorvastatin (LIPITOR) 10 mg, Oral, Nightly bisacodyl (DULCOLAX) 5 mg, Oral, Once, Do not crush, chew, or split. Take as detailed on clinic hand out for colonoscopy prep dilTIAZem CD (CARDIZEM CD) 180 mg, Oral, Every morning furosemide (LASIX) 40 mg, Oral, Daily PRN polyethylene glycol (PEG) 3350 (GLYCOLAX) 238 g, Oral, Once, Take as detailed from clinic hand out for colonoscopy prep potassium chloride CR (K-Tab) 20 MEQ ER tablet 20 mEq, Oral, Daily PRN, Do not crush, chew, or split. propafenone (RYTHMOL) 150 mg, Oral, 3 times daily tamsulosin (FLOMAX) 0.4 mg, Oral, Daily No Known Allergies PAST MEDICAL HISTORY: SOCIAL HISTORY SURGICAL HISTORY: Past Medical History: Diagnosis Date Cancer ([facility]) Hypertension ([facility]) Social History Tobacco Use Smoking status: Former Current packs/day: 1.00 Average packs/day: 1 pack/day for 3.0 years (3.0 ttl pk-yrs) Types: Pipe, Cigarettes Smokeless tobacco: Never Tobacco comments: Smoked pipe a short time over 40 years ago. Substance Use Topics Alcohol use: Yes Alcohol/week: 6.0 standard drinks of alcohol Types: 1 Glasses of wine, 5 Cans of beer per week Comment: Typically have drinks with dinner. Drug use: Never Past Surgical History: Procedure Laterality Date PROSTATE SURGERY Family History Problem Relation Name Age of Onset Hearing loss Mother Cassy Heart disease Father Joel Hypertension Father Joel Cancer Brother Matt Heart disease Brother Matt Cancer Brother Max No Known Allergies Past Surgical History: Procedure Laterality Date PROSTATE SURGERY Tobacco Use: Medium Risk (10/28/2023) Patient History Smoking Tobacco Use: Former Smokeless Tobacco Use: Never Passive Exposure: Not on file Alcohol Use: Alcohol Misuse (06/23/2023) AUDIT-C Frequency of Alcohol Consumption: 2-3 times a week Average Number of Drinks: 1 or 2 Frequency of Binge Drinking: Less than monthly Depression: Not at risk (04/07/2023) Received from [facility], [facility] PHQ-2 PHQ-2 score: 0 Physical Activity: Insufficiently Active (06/23/2023) Exercise Vital Sign Days of Exercise per Week: 2 days Minutes of Exercise per Session: 20 min REVIEW OF SYMPTOMS: Review of Systems All other systems reviewed and are negative. 10 systems were reviewed. Positives noted above. Remainder are negative per CMS guidelines. OBJECTIVE: Visit Vitals BP 142/80 Pulse 76 Resp 20 Ht 6' 2 Wt 324 lb SpO2 94% BMI 41.60 kg/m Smoking Status Former BSA 2.77 m Physical Exam Vitals reviewed. General: AAOx3, NAD Head: atraumatic normocephalic Neck: trachea midline. No masses or lymphadenopathy Heart: Regular rate and rhythm Lungs: equal chest rise and fall, non labored breathing Abdomen: soft, nontender, and non distended Ext: motor 5/5 all extremities with no gross deformities Psych: alert and oriented, behavior appropriate ASSESSMENT AND PLAN: Assessment/Plan Diagnoses and all orders for this visit: Encounter for screening colonoscopy - bisacodyl (Dulcolax) 5 MG EC tablet; Take 1 tablet (5 mg) by mouth 1 time for 1 dose Do not crush, chew, or split. Take as detailed on clinic hand out for colonoscopy prep - polyethylene glycol, PEG, 3350 (Glycolax) 17 GM/SCOOP powder; Take 238 g by mouth 1 (one) time for 1 dose Take as detailed from clinic hand out for colonoscopy prep Plan: Patient is average risk for colon cancer. Colonoscopy can be scheduled electively. Will do double prep/ patient instructed to start 2 days prior for prep. Patient informed of the risks of procedure which include but not limited to bleeding, perforation, and risks of anesthesia. Patient understood risks and signed informed consent for the procedure under monitored anesthesia care. Handout for bowel prep provided in clinic. Patient was informed of the need for a ride home from the hospital and the need for someone to be with them for the following 24 hrs post procedure. Thank you, Sakina Nj DO documented in this encounter [facility] 05-11-2023 Hospital Discharge instructions Patient Education 05/11/2023 [...] treatment? Where to find more information The [employer]: www.cancer.org [employer]: www.auanet.org Contact a health care [...] provider. Document Revised: 08/12/2021 Document Reviewed: 08/12/2021 [employer] Patient Education 2022 [employer]IFEMODELER. Follow Up Care 09/08/2022 12:26:22 With:CARINE DELGADO, ANITA Kaur Address: [facility] [address], [place] [phone] When: Unknown Comments:PSA in 6 mos and f/u in 1 yr w/ repeat PSA [facility] Marta 04-07-2023 Note HNO ID: [id number] Author: Demond BUTLER MD Service: ? Author Type: Physician Type: Progress Notes Filed: 04/15/2023 15:32 Note Text: Radiation Oncology - Follow Up Note PATIENT NAME: Luis Luis PATIENT DIAGNOSIS: Prostate adenocarcinoma, initial PSA 4.3, biopsy [place] score 3 + 4 = 7 (grade [...] Demond Butler MD cc: Kevin Brewer MD ([facility]) [address] [place] [address] Portions of the above note extracted and edited from previous visit as well as active information included in the EMR. [facility] 04-07-2023 Nurse Note AUA=12 documented in this encounter [facility] 04-07-2023 History of Present illness Narrative [...] ASSESSMENT/PLAN: Prostate adenocarcinoma, initial PSA 4.3, biopsy [place] score 3 + 4 = 7 (grade group 2), clinical stage T2a, N0, M0, stage IIB [T1-T2, N0, M0, PSA <20, GG 2] (AJCC 8th ed.), s/p TRUS Random and MRI fusion biopsy. PSA remains undetectable. No postradiation related issues. Plan see patient back in one year for further postradiation follow-up. Signed by: Demond Butler MD cc: Kevin Brewer MD ([facility]) [address] [place] [address] Portions of the above note extracted and edited from previous visit as well as active information included in the EMR. documented in this encounter [facility] 02-10-2023 History of Present illness Narrative [...] in office today documented in this encounter [facility] Work Phone: 02-10-2023 Instructions Felix [...] of your visit. documented in this encounter [facility] Work Phone: 09-30-2022 Note HNO ID: [id number] Author: Demond Butler MD Service: ? Author Type: Physician Type: Progress Notes Filed: 10/03/2022 8:14 AM Note Text: Radiation Oncology - Follow Up Note PATIENT NAME: Luis Luis PATIENT DIAGNOSIS: Prostate adenocarcinoma, initial PSA 4.3, biopsy [place] score 3 + 4 = 7 (grade [...] ASSESSMENT/PLAN: Prostate adenocarcinoma, initial PSA 4.3, biopsy [place] score 3 + 4 = 7 (grade group 2), clinical stage T2a, N0, M0, stage IIB [T1-T2, N0, M0, PSA <20, GG 2] (AJCC 8th ed.), s/p TRUS Random and MRI fusion biopsy. PSA remains undetectable. No postradiation related issues. Plan see patient back in 6 months for further postradiation follow-up. Signed by: Demond Butler MD cc: Kevin Brewer MD ([facility]) [address] [place] [address] Portions of the above note extracted and edited from previous visit as well as active information included in the EMR. [facility] 09-30-2022 History of Present illness Narrative Radiation Oncology - Follow Up Note PATIENT NAME: Luis Luis PATIENT DIAGNOSIS: Prostate adenocarcinoma, initial PSA 4.3, biopsy [place] score 3 + 4 = 7 (grade [...] Demond Butler MD cc: Kevin Brewer MD ([facility]) [address] [place] [address] Portions of the above note extracted and edited from previous visit as well as active information included in the EMR. documented in this encounter [facility] 08-01-2023 Nurse Note AUA 14 Naida Jacobo RN documented in this encounter [facility] 09-08-2022 Hospital Discharge instructions Patient Education [...] urethra. Follow these instructions at home: Take dfgo-wui-ztxrler and prescription medicines only as told by [...] provider. Document Revised: 09/04/2021 Document Reviewed: 09/04/2021 [employer] Patient Education 2022 [employer]EMODELER. Follow Up Care 03/21/2022 12:44:25 With:CARINE DELGADO, Yin Patel, URL Address: [facility] [address] [place] [phone] When:Within 8 Month(s) Comments:PSA [facility] 04-01-2022 History of Present illness [...] Yancy Oneill APRN.ANNA documented in this encounter [facility] 04-01-2022 History of Present illness Narrative Radiation Oncology - Follow Up Note PATIENT NAME: Luis Luis PATIENT DIAGNOSIS: Prostate adenocarcinoma, initial PSA 4.3, biopsy [place] score 3 + 4 = 7 (grade [...] Demond Butler MD cc: Kevin Brewer MD ([facility]) [address] [place] [address] Portions of the above note extracted and edited from previous visit as well as active information included in the EMR. documented in this encounter [facility] 04-01-2022 Nurse Note AUA 14 Naida Jacobo RN documented in this encounter [facility] 03-21-2022 Hospital Discharge instructions Patient Education [...] who: Are older than age 65. Are -British. Are obese. Have a family history of [...] cells. Follow these instructions at home: Take qjgq-ios-nebavtp and prescription medicines only as told by [...] 02/16/2006 Document Revised: 01/29/2018 Document Reviewed: 10/27/2016 [employer] Patient Education 2020 [employer]IFEMODELER. Follow Up Care 09/30/2021 11:58:37 With:CARINE DELGADO, Yin Patel, URL Address: [address] [place] [address]- When: Unknown Comments:6 mos w/ PSA [facility] 02-06-2022 Miscellaneous Notes Patient has been rescheduled & notified of appointment. Monica Rodríguez Pt has PSA scheduled with Dr Hawk in March and would like to postpone his follow up visit with Dr Butler until after that is done. PSS- please call pt and reschedule. He will be awaiting your call. Naida Jacobo RN documented in this encounter [facility] 09-30-2021 Hospital Discharge instructions Patient Education [...] urethra. Follow these instructions at home: Take gkjn-bpq-hddpxfa and prescription medicines only as told by [...] 02/16/2006 Document Revised: 01/11/2019 Document Reviewed: 03/23/2017 [employer] Patient Education [facility] Follow Up Care 04/01/2021 13:09:22 With:CARINE DELGADO, Yin Patel, URL Address: [facility] [address], [place] [phone] When:Within 6 Month(s) Comments:w/ PSA [facility] 08-14-2021 Nurse Note AUA 18 Naida Jacobo RN documented in this encounter [facility] 08-14-2021 History of Present illness Narrative Radiation Oncology - Follow Up Note PATIENT NAME: Luis Luis PATIENT DIAGNOSIS: Prostate adenocarcinoma, initial PSA 4.3, biopsy [place] score 3 + 4 = 7 (grade [...] ASSESSMENT/PLAN: Prostate adenocarcinoma, initial PSA 4.3, biopsy [place] score 3 + 4 = 7 (grade [...] Demond Butler MD cc: Kevin Brewer MD ([facility]) [address] [place] [address] documented in this encounter [facility] 08-09-2021 Hospital Discharge instructions Patient Education [...] including vitamins, herbs, eye drops, creams, and rven-xhd-gcsfigh medicines. Any problems you or family members [...] 07/27/2006 Document Revised: 01/29/2018 Document Reviewed: 02/25/2017 [employer] Patient Education 2020 LIFEMODELER. Follow Up Care 07/04/2021 11:13:01 With:CARINE DELGADO, Yin Patel, URL Address: [facility] [address] [place] [phone] When: Unknown [facility] 08-05-2021 Miscellaneous Notes Ok to resched Lius called in stating he tested positive for COVID-19 on 08/03/21 and his symptoms started , 08/01/21. He has a scheduled 6wk post implant follow up on 08/08/21. He will call us later in the week to possibly reschedule his follow up. Kelly Guo LPN documented in this encounter [facility] 07-25-2021 History of Present illness Narrative Patient: Luis Luis Date:07/25/2021 [facility] Department of Radiation Oncology [facility] [...] M.D. 23:26 PM documented in this encounter [facility] 06-27-2021 History of Present illness Narrative Date: 06/27/21 Facility: [facility] Procedure: prostate transperineal brachytherapy implant [...] patient identified by name and hospital ID [email or web address]. After anesthesia administered patient placed in dorsal-lithotomy [...] Butler MD (Signed electronically to expedite mailing) [facility] documented in this encounter [facility] 06-11-2021 History of Present illness Narrative [...] Demond Butler MD documented in this encounter [facility] 06-11-2021 History of Present illness Narrative LUIS LUIS [id number] 06/11/2021 [facility] Department of Radiation Oncology [facility] RADIATION ONCOLOGY SIMULATION NOTE DATE OF SIMULATION: 06/11/2021 MACHINE: Associated Content Focus 500 Diagnosis: 185 (Prostate Gland) AREA:Prostate PATIENT POSITION: Supine CONTRAST: None PROTOCOL: None CONCURRENT THERAPY: None FIXATION DEVICE: UTS Stabilization device by [employer]. PROCEDURE: Patient was simulated in exaggerated dorsal lithotomy position. Serial images of the prostate were acquired using TRUS and reconstructed in 3D space. These images were imported into [employer] Prostate planning system where a plan was generated. ASSESSMENT/PLAN: Patient tolerated simulation procedure well. Electronically Signed Chavez Butler M.D. / LAURA 25:05 PM documented in this encounter [facility] Evaluation + Plan note Future Appointments Appointment Date:08/05/2021 08:45:00 AM Scheduled Provider:Yin HAWK MD Location:[facility] Appointment Type:URO Office Visit Appointment Date:09/30/2021 10:30:00 AM Scheduled Provider:Yin HAWK MD Location:[facility] Appointment Type:URO Office Visit Future Scheduled TestsPT & PTT 03/05/21BUN 03/05/21Creatinine 03/05/21Electrolyte Panel 03/05/21CBC w/ Auto Diff 03/05/21XR Chest 2 Views 03/05/21 [facility] Evaluation + Plan note Future Appointments Appointment Date:09/30/2021 10:30:00 AM Scheduled Provider:Yin HAWK MD Location:[facility] Appointment Type:URO Office Visit Diagnostic Tests PendingPSA Total 08/09/21 Future Scheduled TestsPT & PTT 03/05/21BUN 03/05/21Creatinine 03/05/21Electrolyte Panel 03/05/21CBC w/ Auto Diff 03/05/21XR Chest 2 Views 03/05/21 [facility] Evaluation + Plan note Future Appointments Appointment Date:03/21/2022 11:00:00 AM Scheduled Provider:Yin HAWK MD Location:[facility] Appointment Type:URO Office Visit Diagnostic Tests PendingPSA Total 09/30/21 Future Scheduled TestsPT & PTT 03/05/21BUN 03/05/21Creatinine 03/05/21Electrolyte Panel 03/05/21CBC w/ Auto Diff 03/05/21XR Chest 2 Views 03/05/21 [facility] Evaluation + Plan note Future Appointments Appointment Date:09/08/2022 10:15:00 AM Scheduled Provider:Yin HAWK MD Location:[facility] Appointment Type:URO Office Visit Diagnostic Tests PendingPSA Total 06/30/22 [facility] Evaluation + Plan note Future Appointments Appointment Date:05/11/2023 09:45:00 AM Scheduled Provider:Yin HAWK MD Location:[facility] Appointment Type:URO Office Visit Diagnostic Tests PendingPSA Total 09/08/22 [facility] Evaluation + Plan note Future Appointments Appointment Date:05/13/2024 09:45:00 AM Scheduled Provider:Yin HAWK MD Location:[facility] Appointment Type:URO Office Visit Diagnostic Tests PendingPSA Total 05/11/23 [facility] Evaluation note Diagnosis Malignant neoplasm of prostate (HCC)- Primary Malignant neoplasm of prostate [facility] Diagnosis Malignant neoplasm of prostate (HCC)- Primary Malignant neoplasm of prostate [facility] Diagnosis Malignant neoplasm of prostate (HCC)- Primary Malignant neoplasm of prostate [facility] Diagnosis Prostate cancer (HCC) Malignant neoplasm of prostate [facility] Diagnosis Malignant neoplasm of prostate (HCC)- Primary Malignant neoplasm of prostate [facility] Diagnosis Malignant neoplasm of prostate (HCC)- Primary Malignant neoplasm of prostate [facility]* Diagnosis Paroxysmal SVT (supraventricular tachycardia)- Primary Primary hypertension Unspecified essential hypertension Mixed hyperlipidemia Morbid obesity with BMI of 40.0-44.9, adult (CMS/HCC) Bifascicular block Other bilateral bundle branch block documented in this encounter [facility] Work Phone: Evaluation note* Diagnosis Malignant neoplasm of prostate (HCC)- Primary Malignant neoplasm of prostate [facility] noteNo assessment information availableSelect [facility] Work Phone: Evaluation note* Diagnosis Morbid obesity due to excess calories (CMS/HCC)- Primary RENAE on CPAP Hypoxia Hypoxemia Snoring Other dyspnea and respiratory abnormality Daytime hypersomnolence documented in this encounter [facility]* Diagnosis Essential hypertension, benign [...] specified cardiac dysrhythmias documented in this encounter [facility]* Diagnosis Essential hypertension, benign [...] with right-sided sciatica documented in this encounter [facility]* Diagnosis Essential hypertension, benign [...] with right-sided sciatica documented in this encounter [facility]* Diagnosis Essential hypertension, benign [...] tachycardia) (CMS/HCC) Other specified cardiac dysrhythmias Lumbar radiculopathy Thoracic or lumbosacral neuritis or radiculitis, unspecified Chronic right-sided low back pain with right-sided sciatica documented in this encounter [facility]* Diagnosis Essential hypertension, benign [...] with right-sided sciatica documented in this encounter [facility]* Diagnosis Essential hypertension, benign [...] with right-sided sciatica documented in this encounter [facility]* Diagnosis Essential hypertension, benign [...] hyperlipidemia Morbid obesity due to excess calories (CMS/[facility]) Essential hypertension, benign (CMS/HCC)- Primary Essential hypertension, benign Lumbar radiculopathy Thoracic or lumbosacral neuritis or radiculitis, unspecified Chronic right-sided low back pain with right-sided sciatica Bilateral leg edema Edema SVT (supraventricular tachycardia) ([facility]/HCC) Other specified cardiac dysrhythmias Lumbar radiculopathy- Primary Thoracic or lumbosacral neuritis or radiculitis, unspecified Chronic right-sided low back pain with right-sided sciatica documented in this encounter [facility]* Diagnosis Essential hypertension, benign [...] with right-sided sciatica documented in this encounter [facility]* Diagnosis Essential hypertension, benign [...] with right-sided sciatica documented in this encounter [facility]* Diagnosis Encounter for screening colonoscopy- Primary documented in this encounter [facility]* Diagnosis Essential hypertension, benign [...] (supraventricular tachycardia) (CMS/HCC) Other specified cardiac dysrhythmias Chronic right hip pain- Primary Degeneration of intervertebral disc of lumbar region with discogenic back pain and lower extremity pain documented in this encounter [facility]* Diagnosis Essential hypertension, benign (CMS/HCC)- [...] Bilateral leg edema Edema SVT (supraventricular tachycardia) (CMS/[facility]) Other specified cardiac dysrhythmias Chronic right hip pain- Primary Degeneration of intervertebral disc of lumbar region with discogenic back pain and lower extremity pain Lumbar radiculopathy- Primary Thoracic or lumbosacral neuritis or radiculitis, unspecified Chronic right-sided low back pain with right-sided sciatica documented in this encounter [facility]* Diagnosis Malignant neoplasm of prostate (Multi)- Primary Malignant neoplasm of prostate Paroxysmal SVT (supraventricular tachycardia) ([facility]-HCC) Body mass index (BMI) 40.0-44.9, adult (Multi) High risk medication use Mixed hyperlipidemia Primary hypertension Unspecified essential hypertension Bifascicular block Other bilateral bundle branch block Morbid obesity with BMI of 40.0-44.9, adult (Multi) Obstructive sleep apnea syndrome Obstructive sleep apnea (adult) (pediatric) documented in this encounter [facility] Work Phone: History of Present illness NarrativePatient returns in follow-up [...] as well as blood pressure discussed and amanda otooled and treatment is adequate and appropriate. We discussed the merits of diet lifestyle modification exercise and weight loss.[facility] [employer] Toyz DO Work Phone: History of Present illness [...] merits of diet exercise and weight loss. [facility] DO Work Phone: Hospital course Narrative No data available for this section [facility] Hospital Discharge instructions No data available for this section [facility] Progress note No data available for this section [facility] Narrative* Rehabilitation - Outpatient (Routine) - Authorized Specialty Diagnoses / Procedures Referred By Myrtle romeo Referred To Contact Physical Therapy Diagnoses Lumbar radiculopathy Chronic right-sided low back pain with right-sided sciatica Procedures OR OFFICE/OUTPATIENT NEW HIGH MDM 60 MINUTES Kevin Brewer MD [address] [place] [address] Phone: tel: fax: Franchesca Gray, PT [address] [place] [address] Phone: tel: fax: Referral ID Status Reason Start Date Expiration Date Visits Requested Visits Authorized [id number] Authorized Specialty Services Required 01/06/2024 07/04/2024 20 20 [facility] N[facility]* Rehabilitation - Outpatient (Routine) - Authorized Specialty Diagnoses / Procedures Referred By Contac t Referred To Contact Physical Therapy Diagnoses Lumbar radiculopathy Chronic right-sided low back pain with right-sided sciatica Procedures OR OFFICE/OUTPATIENT NEW HIGH [facility] 60 MINUTES Kevin Brewer MD [address] [place] [address] Phone: tel: fax: Franchesca Gray, PT [address] [place] [address] Phone: tel: fax: Referral ID Status Reason Start Date Expiration Date Visits Requested Visits Authorized [id number] Authorized Specialty Services Required 01/06/2024 07/04/2024 20 30 [facility] - Outpatient (Routine) - Authorized Specialty Diagnoses / Procedures Referred By Myrtle t Referred To Contact Physical Therapy Diagnoses Lumbar radiculopathy Chronic right-sided low back pain with right-sided sciatica Procedures OR OFFICE/OUTPATIENT NEW HIGH [facility] 60 MINUTES Kevin Brewer MD [address] [place] [address] Phone: tel: fax: Franchesca Gray, PT [address] [place] [address] Phone: tel: fax: Referral ID Status Reason Start Date Expiration Date Visits Requested Visits Authorized [id number] Authorized Specialty Services Required 01/06/2024 03/01/2024 20 30 [facility] Summary Purpose Family History No [...] ECG 12 Lead Parveen Santo MD [address] [facility] [address], [place] [address] [place] [address] Referral ID Status Reason Start Date Expiration Date V isits Requested Visits Authorized [id number] Pending Review 02/10/2023 02/10/2024 1 1 Specialty Diagnoses / Procedures Referred By Contac t Referred To Contact Cardiology Diagnoses Paroxysmal SVT (supraventricular tachycardia) Procedures Follow Up In Cardiology Parveen Santo MD [address] [facility] [address], [address] [place] [address] Parveen Santo MD [address] [place] [address] [address], [place] [address] [place] [address] Referral ID Status Reason Start Date Expiration Date V isits Requested Visits Authorized [id number] Authorized 02/10/2023 02/10/2024 1 1 Additional Source Comments (unrecognized sect ion and content) No Status Records FoundNo Status Records FoundNo Status Records FoundNo Status Records FoundNo Status Records FoundNo Status Records FoundNo Status Records FoundNo Status Records FoundNo Status Records Found INFORMATION SOURCE (unrecogn ized section and content) DATE CREATED AUTHOR 12/03/2019 [facility] DATE CREATED AUTHOR AUTHOR'S ORGANIZ ATION 02/12/2022 [facility] DATE CREATED AUTHOR AUTHOR'S ORGANIZ ATION 02/12/2022 [facility] DATE CREATED AUTHOR AUTHOR'S ORGANIZ ATION 07/10/2022 [facility] DATE CREATED AUTHOR AUTHOR'S ORGANIZ ATION 04/17/2023 [facility] DATE CREATED AUTHOR AUTHOR'S ORGANIZ ATION 05/13/2023 [facility] DATE CREATED AUTHOR AUTHOR'S ORGANIZ ATION 11/22/2023 [facility] DATE CREATED AUTHOR AUTHOR'S ORGANIZ ATION 02/23/2024 [facility] DATE CREATED AUTHOR AUTHOR'S ORGANIZ ATION 03/14/2024 [facility] Source Comments (unrecognize d section and content) In the event this informatio n is protected by the Federal Confidentiality of Alcohol and Drug Abuse Patient Records regulations: The Federal rules restrict any use of the information to criminally investigate or prosecute any alcohol or drug abuse patient.[facility] HospitalIn the event this information is protected by the Federal Confidentiality of Alcohol and Drug Abuse Patient Records regulations: The Federal rules restrict any use of the information to criminally investigate or prosecute any alcohol or drug abuse patient.[facility] HospitalIn the event this information is protected by the Federal Confidentiality of Alcohol and Drug Abuse Patient Records regulations: The Federal rules restrict any use of the information to criminally investigate or prosecute any alcohol or drug abuse patient.[facility] HospitalIn the event this information is protected by the Federal Confidentiality of Alcohol and Drug Abuse Patient Records regulations: The Federal rules restrict any use of the information to criminally investigate or prosecute any alcohol or drug abuse patient.[facility] HospitalIn the event this information is protected by the Federal Confidentiality of Alcohol and Drug Abuse Patient Records regulations: The Federal rules restrict any use of the information to criminally investigate or prosecute any alcohol or drug abuse patient.[facility] HospitalIn the event this information is protected by the Federal Confidentiality of Alcohol and Drug Abuse Patient Records regulations: The Federal rules restrict any use of the information to criminally investigate or prosecute any alcohol or drug abuse patient.[facility] HospitalIn the event this information is protected by the Federal Confidentiality of Alcohol and Drug Abuse Patient Records regulations: The Federal rules restrict any use of the information to criminally investigate or prosecute any alcohol or drug abuse patient.[facility] HospitalIn the event this information is protected by the Federal Confidentiality of Alcohol and Drug Abuse Patient Records regulations: The Federal rules restrict any use of the information to criminally investigate or prosecute any alcohol or drug abuse patient.[facility] HospitalIn the event this information is protected by the Federal Confidentiality of Alcohol and Drug Abuse Patient Records regulations: The Federal rules restrict any use of the information to criminally investigate or prosecute any alcohol or drug abuse patient.[facility] HospitalIn the event this information is protected by the Federal Confidentiality of Alcohol and Drug Abuse Patient Records regulations: The Federal rules restrict any use of the information to criminally investigate or prosecute any alcohol or drug abuse patient.[facility] HospitalIn the event this information is protected by the Federal Confidentiality of Alcohol and Drug Abuse Patient Records regulations: The Federal rules restrict any use of the information to criminally investigate or prosecute any alcohol or drug abuse patient.[facility] HospitalIn the event this information is protected by the Federal Confidentiality of Alcohol and Drug Abuse Patient Records regulations: The Federal rules restrict any use of the information to criminally investigate or prosecute any alcohol or drug abuse patient.[facility] HospitalIn the event this information is protected by the Federal Confidentiality of Alcohol and Drug Abuse Patient Records regulations: The Federal rules restrict any use of the information to criminally investigate or prosecute any alcohol or drug abuse patient.[facility] Care Teams (unrecognized sec tion and content) History Instructor Relationship Specialty Start Date End Date Kevin Brewer [address] [place] [address] PCP - General Family Practice 03/22/21 Yin Hawk MD [address] [place] [address] Referring Urology 03/22/21 History Instructor Relationship Specialty Start Date End Date Kevin Brewer [address] [place] [address] PCP - General Family Practice 03/22/21 Yin Hawk MD [address] [place] [address] Referring Urology 03/22/21 History Instructor Relationship Specialty Start Date End Date Kevin Brewer [address] [place] [address] PCP - General Family Practice 03/22/21 Yin Hawk MD [address] [place] [address] Referring Urology 03/22/21 History Instructor Relationship Specialty Start Date End Date Kevin Brewer [address] [place] [address] PCP - General Family Practice 03/22/21 Yin Hawk MD [address] [place] [address] Referring Urology 03/22/21 History Instructor Relationship Specialty Start Date End Date Kevin Brewer [address] [place] [address] PCP - General Family Practice 03/22/21 Yin Hawk MD [address] [place] [address] Referring Urology 03/22/21 History Instructor Relationship Specialty Start Date End Date Kevin Brewer [address] [place] [address] PCP - General Family Medicine 03/22/21 Yin Hawk MD [address] [place] [address] Referring Urology 03/22/21 History Instructor Relationship Specialty Start Date End Date Kevin Brewer [address] [place] [address] PCP - General Family Medicine 03/22/21 Yin Hawk MD [address] [place] [address] Referring Urology 03/22/21 History Instructor Relationship Specialty Start Date End Date Kevin Brewer [address] [place] [address] PCP - General Family Medicine 03/22/21 Yin Hawk MD [address] [place] [address] Referring Urology 03/22/21 History Instructor Relationship Specialty Start Date End Date Kevin Brewer [address] [place] [address] PCP - General Family Medicine 03/22/21 Yin Hawk MD [address] [place], [place] [address] Referring Urology 03/22/21 History Instructor Relationship Specialty Start Date End Date Kevin Brewer MD [address] [place] [address] PCP - General Family Medicine 02/05/23 History Instructor Relationship Specialty Start Date End Date Kevin Brewer [address] [place] [address] PCP - General Family Medicine 03/22/21 Yin Hawk MD [address] [place] [address] Referring Urology 03/22/21 Team Status: Inactive Member Role Status Dates Franchesca Nj DO Attending Provider Active Star t: November 17, 2023 End: November 17, 2023 History Instructor Relationship Specialty Start Date End Date Kevin Brewer [address] [place], [place] [id number] PCP - General Family Medicine 03/22/21 Yin Hawk MD [address] [place] [address] Referring Urology 03/22/21 History Instructor Relationship Specialty Start Date End Date Kevin Brewer [address] [place], [place] [id number] PCP - General Family Medicine 03/22/21 Yin Hawk MD [address] [place] [address] Referring Urology 03/22/21 History Instructor Relationship Specialty Start Date End Date Kevin Brewer MD [address] [place] [address] PCP - General Family Medicine 06/29/23 History Instructor Relationship Specialty Start Date End Date Kevin Brewer MD [address] [place] [address] PCP - General Family Medicine 06/29/23 History Instructor Relationship Specialty Start Date End Date Kevin Brewer MD [address] [place] [address] PCP - General Family Medicine 06/29/23 History Instructor Relationship Specialty Start Date End Date Kevin Brewer MD [address] [place] [address] PCP - General Family Medicine 06/29/23 History Instructor Relationship Specialty Start Date End Date Kevin Brewer MD [address] [place] [address] PCP - General Family Medicine 06/29/23 History Instructor Relationship Specialty Start Date End Date Kevin Brewer MD [address] [place] [address] PCP - General Family Medicine 06/29/23 History Instructor Relationship Specialty Start Date End Date Kevin Brewer MD [address] [place] [address] PCP - General Family Medicine 06/29/23 History Instructor Relationship Specialty Start Date End Date Kevin Brewer MD [address] [place] [address] PCP - General Family Medicine 06/29/23 History Instructor Relationship Specialty Start Date End Date Kevin Brewer MD [address] [place] [address] PCP - General Family Medicine 06/29/23 History Instructor Relationship Specialty Start Date End Date Kevin Brewer MD [address] [place] [address] PCP - General Family Medicine 06/29/23 History Instructor Relationship Specialty Start Date End Date Kevin Brewer MD [address] [place] [address] PCP - General Family Medicine 06/29/23 History Instructor Relationship Specialty Start Date End Date Kevin Brewer MD [address] [place] [address] PCP - General Family Medicine 06/29/23 History Instructor Relationship Specialty Start Date End Date Kevin Brewer MD [address] [place] [address] PCP - General Family Medicine 06/29/23 History Instructor Relationship Specialty Start Date End Date Kevin Brewer MD [address] [place] [address] PCP - General Family Medicine 06/29/23 History Instructor Relationship Specialty Start Date End Date Kevin Brewer MD [address] [place] [address] PCP - General Family Medicine 06/29/23 History Instructor Relationship Specialty Start Date End Date Kevin Brewer MD [address] [place] [address] PCP - General Family Medicine 06/29/23 History Instructor Relationship Specialty Start Date End Date Kevin Brewer MD [address] [place] [address] PCP - General Family Medicine 06/29/23 History Instructor Relationship Specialty Start Date End Date Kevin Brewer MD [address] [place] [address] PCP - General Family Medicine 06/29/23 History Instructor Relationship Specialty Start Date End Date Kevin Brewer MD [address] [place] [address] PCP - General Family Medicine 06/29/23 History Instructor Relationship Specialty Start Date End Date Kevin Brewer MD [address] [place] [address] PCP - General Family Medicine 06/29/23 History Instructor Relationship Specialty Start Date End Date Kevin Brewer MD [address] [place] [address] PCP - General Family Medicine 06/29/23 History Instructor Relationship Specialty Start Date End Date Kevin Brewer MD [address] [place] [address] PCP - General Family Medicine 02/05/23 Reason for Visit (unrecogniz ed section and content) Reason Comments Annual Exam Specialty Diagnoses / Procedures Referred By Contac t Referred To Contact Cardiology Diagnoses Paroxysmal SVT (supraventricular tachycardia) ([facility]) Procedures Follow Up In Cardiology Parveen Santo MD McGuinn, William P, MD Retired From Practice Referral ID Status Reason Start Date Expiration Date V isits Requested Visits Authorized [id number] Authorized 02/10/2023 02/10/2024 1 1 Specialty Diagnoses / Procedures Referred By Contac t Referred To Contact Radiation Oncology / RADIATION ONCOLOGY Diagnoses Malignant neoplasm of prostate Seed Implant at [facility] Procedures SEED IMPLANT Demond Butler MD [address] [place] [address] [place] [address] Demond Butler MD [address] [place] [address] [place] [address] Referral ID Status Reason Start Date Expiration Date V isits Requested Visits Authorized [id number] Authorized 06/27/2021 03/01/2022 99 99 Reason Comments FYI-No Action Needed Covid19 Concern Reason Comments Prostate Cancer Reason Comments Future Appointment Specialty Diagnoses / Procedures Referred By Contac t Referred To Contact Diagnoses Paroxysmal SVT (supraventricular tachycardia) Procedures ECG 12 Lead Parveen Santo MD [address] [place] [address] Referral ID Status Reason Start Date Expiration Date V isits Requested Visits Authorized [id number] Pending Review 02/10/2023 02/10/2024 1 1 Specialty Diagnoses / Procedures Referred By Contac t Referred To Contact Radiation Oncology / RADIATION ONCOLOGY Diagnoses Malignant neoplasm of prostate SIM/JADA/Pelvis Procedures SIMULATION BREONNA IMRT 25 fractions Demond Butler MD [address] [place] [address] Demond Butler MD [address] [place] [address] Referral ID Status Reason Start Date Expiration Date Visits Re quested Visits Authorized [id number] Closed 04/09/2021 03/01/2022 99 99 Reason Comments Sleep Apnea Reason Comments Follow-up 6 mSciatic pain Reason Comments Colonoscopy Pt presents today fo r a colonoscopy consult. He states that he has had 2 colonoscopy's before, first one 10 years ago and he had one a few months ago, but the prep did not work. He states that he felt more constipated from the prep. He denies changes in bowel movements. Abdominal pain or any family hx of colon cancer. Reason Comments Hip Pain Right hip pain Goals (unrecognized section and content) Goals [...] BE BASED ON THE PRIMARY CLINICAL RECORDS. [facility]. provides no warranty or guarantee of the accuracy or completeness of information in this document.
[2024-03-14 09:21] VITALS: BP 145/93; PULSE 72; TEMP 36.5; O2SAT 95
[2024-03-14 10:03] VITALS: BP 157/73; PULSE 72; O2SAT 94
[2024-03-14 10:04] VITALS: BP 152/76; PULSE 74; O2SAT 95
[2024-03-14] MEDS: BUPIVACAINE HCL 0.25% PF 25 MG/10 ML VIAL 4 ML INJ (10:04)
[2024-03-14] MEDS: IOHEXOL 240 MG/ML - 10 ML VIAL 24 MG INJ (10:04)
[2024-03-14] MEDS: LIDOCAINE HCL 2% 400 MG/20 ML MDV INJ (10:04)
[2024-03-14] MEDS: METHYLPREDNISOLONE ACETATE 40 MG/ML VIAL INJ (10:04)
--- NOTE | 2024-03-14 10:06 | W.PM.PROCNOT ---
Date of procedure: 03/14/24 Pre-op diagnosis: Pain due to right hip osteoarthritis Post-op diagnosis: same as pre-op Procedure: Procedure: Right hip injection Medications: Bupivacaine 0.25% 3cc, depomedrol 40mg I explained the details of the procedure to the patient including the risks, benefits and alternatives. We had an informed discussion and the patient verbalized understanding and signed the consent form. All questions were answered appropriately.? A time out was performed.? After obtaining a comfortable supine position, the skin overlying the hip, subtrochanteric region, and joint space were prepped with alcohol. A sterile syringe containing the above medication was attached to a 25 guage, 3.5 inch spinal needle under strict aseptic technique. X ray was used to identify the joint space and the femoral neck on the right side.? The needle was than advanced through the subcutaneous tissue after local injection of 1% lidocaine.? The contents of the syringe were gently injected without any resistance into the joint space after contrast (isovue) outlined the appropriate area. The needle was removed and pressure was applied to the injection site to decrease the incidence of ecchymosis and hematoma formation.? A sterile bandage was applied. Anesthesia: Local Surgeon: Shantelle Ornelas Pathology: none sent Condition: stable Disposition: no change
== END 2024-03-14 10:12 | disposition home or self-care (01) ==
PROVIDERS: PCP Family Medicine; Visit Provider Anesthesiology
DX: M25.551 Pain in right hip (principal)
CPT/HCPCS: 20610; 77002; J0665; J1010; Q9966

== ENCOUNTER 2024-03-23 11:11 | Outpatient (OUT) | payer MEDICARE, SELFPAY ==
--- OUTSIDE RECORDS SUMMARY | 2024-03-23 11:28 | XMS_ITS | CCD ---
Author Organization [facility] Care Team Providers Care Jewel Gauger Name Role Phone Kevin Brewer Unavailable Unavailable Unavailable Unavailable Unavailable Kevin Brewer Primary Care Provider Yin Hawk MD Unavailable [phone] KEVIN BREWER Primary Care Physician Unavailable Unavailable [...] Rachaelvai Kevin Mclain Primary Care Provider Yin Hawk MD Unavailable [phone] KEVIN BREWER Primary Care Unavailable NADEREAmanda, [...] YIN HAWK Attending Unavailable YIN HAWK Consulting Kevin Hampton MD Primary Care Provider Demond BUTLER Attending Unavailable KEVIN BREWER Primary Care Unavailable Demond BUTLER Referring Unavailable KEVIN BREWER Primary Care Unavailable Demond BUTLER Referring Unavailable Demond BUTLER Attending Unavailable Yin HAWK Attending Unavailable Yin HAWK Attending Unavailable Yin HAWK Attending Unavailable DO Franchesca Nj Attending Provider Franchesca Nj Attending Unavailable Franchesca Nj Admitting Unavailable Kevin Brewer Primary Care Provider [phone] Carine DELGADO, Yin Patel Unavailable [phone] Kevin Brewer MD Primary Care Provider KEVIN [...] DAYNA Attending Unavailable NADERER, KEVIN Referring Unavailable KELBLECHERYL Bush Attending Unavailable NADERER, KEVIN Referring Unavailable PULIDO, DAYNA Attending Unavailable NADERER, KEVIN Referring Unavailable PULIDO, DAYNA Attending Unavailable NADERER, KEVIN Referring Unavailable PULIDO, DAYNA Attending Unavailable NADERER, KEVIN Referring Unavailable PULIDO, DAYNA Attending Unavailable NADERER, KEVIN Referring Unavailable NADERER, KEVIN Attending Unavailable PULIDO, DAYNA Attending Unavailable NADERER, KEVIN Referring Unavailable MARY TAM Attending Unavailable PARVEEN SANTO Referring Unavailable KEVIN BREWER Primary Care Unavailjennifer Ornelas MD, Shantelle Woodward Attending Unavailable Allergies Allergy Classification Reported Allergen(s) Allergy Type Date of Onset Reaction(s) Facility (1 source) tamsulosin Drug Allergy 05-31-2021 [facility] Repository Medications Current Medications Medication Drug Class(es) Dates Sig (Normalized) Sig (Original) acetaminophen 325 mg oral tablet (16 sources) Start: 03-07-2021 acetaminophen (TYLENOL) 325 mg tablet Take by mouth. 03/07/2021 Active Start: 03-07-2021 take 2 tablets by [facility] at bedtime as needed for pain acetaminophen [...] Active Start: 09-28-2019 take 1 capsule by [facility] once daily in the morning dilTIAZem CD [...] Date: 08/09/21 Status: Ordered polyethylene glycol 3350 52628 mg powder for oral solution (2 sources) [...] mg tablet Indications: Paroxysmal SVT (supraventricular tachycardia) ([facility]) Take 1 tablet (150 mg) by mouth [...] Comment on above: Take 1 capsule by [facility] twice daily. lisinopril 10 mg oral tablet [...] 01-21-2021 Chronic Other aftercare (3 sources) Other usp (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; Translations: [OTH USP CURRENT DRUG THERAPY] Onset: 07-09-2022 Episodic Other aftercare (3 sources) Taking high risk medication; Translations: [Other termite helper (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] Onset: 03-08-2024 03-08-2024 Episodic [...] current use of drug therapy; Translations: [Other termite helper (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] Onset: 06-29-2023 06-29-2023 Episodic Other aftercare (3 sources) Patient encounter status; Translations: [Other usp (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] Onset: 06-29-2023 06-29-2023 Episodic [...] Test Name Value Interpretation Reference Range Facility [facility] PSA, DIAGNOSTICon 12-02 PROSTATE SPECIFIC ANTIGEN DX 0.13 ng/mL NINF - 4.00 ng/mL [facility] Health[facility] Ruddy 11-17-2023 L Specimen: [id number] Received: 11/18/23 Status: LEILANI Javier Num: [id number] Spec Type: Surgical Subm Dr: Franchesca Nj DO Tissues: A Colon Biopsy (SIGMOID POLYP) Procedures: HE/2, Gross/Micro L4 Age/ Patient Sex Location Account Attending Physician Luis Luis/M LABELL [id number] Franchesca Nj DO SPEC NUM: [id number] RECD: 11/18/23 STATUS: LEILANI JAVIER NUM: [id number] LULÚ: 11/17/[address] [facility] [address]: Franchesca Nj DO ENTERED: 11/18/[address] [facility] [address]: Solange Soria SPEC TYPE: Surgical DEPT: CECILIO RODRIGUEZ ENTERED BY: [id number] RECV BY: [id number] ORDERED: HE/2, Gross/Micro L4 ORDERED: HE/2, Gross/Micro [...] entirely submitted in cassette A1. CPT Codes 89817 Specimen: [id number] Received: 11/18/23 Status: LEILANI Aguileraneena Num: [id number] Spec Type: Surgical Subm Dr: Franchesca Nj DO Tissues: A Colon Biopsy (SIGMOID POLYP) Procedures: HE/2, Gross/Micro L4 Patient: Luis Luis [id number] (Continued) Signed (signature on file) Brynn Watson MD 11/19/231926 [place] [facility] Ambulatory Visit Summaryon [...] DELGADO, Yin Patel Where: [facility] Patient Educationon 05-11-19 Patient Education Oncology [...] Where to find more information ? [employer] [place] [employer]: www.cancer.org ? [place] [employer]: www.auanet.org Contact a health care [...] adds flu (more content not included)... Normal [facility] Urology Office/Clinic Noteon 05-11-2023 Urology Office/Clinic Note [...] to fracture or costochondritis. Brachytherapy 06/27/21. PSA: 10/06/21 - 4.3 and 8.6% (prior to tx) [...] [facility] [address], [place] [address]- [phone] Additional Instructions: PSA in 6 mos and f/u in 1 yr w/ repeat PSA Patient Education Prostate Cancer Screening Kimberly Torres, personally scribed for Dr. Hawk on 05/11/2023 [...] Prostate ca (more content not included)... Normal [facility] Comment on above: Result Comment: Elec tronically Signed By: CARINE DELGADO, Yin Patel\.br\Date and Time Signed: 05/11/23 10:34 EDT\.br\Electronically Co-Signed By: Kimberly Nash\.br\Date and Time Co-Signed: 05/11/23 10:32 EDT Nahun 04-07-2023 CNOV Office Visit (RADTSA ) -------- LUIS LUIS ([id number]) 1950 M Date Time Provider Department 04/07/23 [...] MD cc: Kevin Brewer MD ([facility]) [address] [place] [address] Portions of the above note extracted and edited from previous visit as well as active information included in the EMR. Kelly Guo LPN 04/15/2023 3:32 PM Signed AUA=12 Referring Provider: Demond BUTLER [[id number]] Allergies As of Date: 04/07/2023 (No Known Allergies) Date Reviewed: 04/07/2023 Reviewed by: Kelly Guo LPN - Fully Assessed Reason for Visit: Prostate Cancer [590] Primary Visit Diagnosis:Malignant neoplasm of prostate (HCC) [C61] Order(s):PSA (OUTSIDE) [[id number]] Order #: [id number] PSA/PROSTSPECAG DIAG [SQPSA] Order #: [id number] FUTURE Prescriptions as of 04/15/2023 - naproxen [...] for Encounter Date Provider Department Center 04/07/2023 [id number] BUTLER JANNA RAVI Encounter Status:Closed by Demond BUTLER on 04/15/23 [facility] 04-01-2023 Lab Reports [id number] F Normal [facility] ECG 12 Leadon 02-10-2023 Normal sinus rhythm Right bundle branch block left anterior fascicular block Bifascicular block Cannot exclude age-indeterminate inferior infarct QTc 443 ms [facility] Work Phone: CNOVon 09-30-2022 CNOV Office Visit (RADTSA ) -------- BILLLUIS Rushing ([id number]) 1950 M Date Time Provider Department 09/30/22 [...] MD cc: Kevin Brewer MD ([facility]) [address] [place] [address] Portions of the above note extracted and edited from previous visit as well as active information included in the EMR. Referring Provider: Demond BUTLER [[id number]] Allergies As of Date: 09/30/2022 (No Known Allergies) Date Reviewed: 09/30/2022 Reviewed by: Naida Jacobo RN - Fully Assessed Reason for Visit: Prostate Cancer [590] Primary Visit Diagnosis:Malignant neoplasm of prostate (HCC) [C61] Order(s):PSA (OUTSIDE) [[id number]] Order #: [id number] PSA/PROSTSPECAG DIAG [SQPSA] Order #: [id number] FUTURE Prescriptions as of 10/03/2022 - naproxen [...] for Encounter Date Provider Department Center 09/30/2022 [id number] BUTLER [facility] Encounter Status:Closed by Demond BUTLER on 10/03/22 [facility] 09-09-2022 Lab Reports [id number]: 127 Normal [facility] Ambulatory Visit Summaryon 0 09-08-2022 Ambulatory Visit Summary LUIS LUIS :1950 Visit Date:09/08/2022 Ambulatory Visit Instructions Your Diagnosis Prostate cancer BPH with urinary obstruction Family history of prostate cancer Tests Performed Urnls Dip Stick Auto w/o Microscopy POC 30726 Your Care Team Attending Physician - CARINE [...] DELGADO, Yin Patel Where: [facility] Patient Educationon 09-09-19 Patient Education Urology [...] Follow these instructions at home: ? Take yjzr-tpv-iznprhw and prescription medicines only as told by [...] the medicine (more content not included)... Normal [facility] Urology Office/Clinic Noteon 09-08-2022 Urology Office/Clinic Note [...] When Contact Information CARINE DELGADO, Yin Patel, ANITA In 8 months [facility] [address], [place] [address]- [phone] Additional Instructions: PSA Patient Education Benign Prostatic Hyperplasia I, Kimberly Nash, personally scribed for Dr. Hawk on 09/08/2022 12:20:46. . Documentation recorded by the rosalindibeKimberly, accurately reflects the services(s) I performed and [...] lifetime) To (more content not included)... Normal [facility] Comment on above: Result Comment: Elec tronically Signed By: CARINE DELGADO, Yin Patel\.br\Date and Time Signed: 09/08/22 12:22 EDT\.br\Electronically Co-Signed By: Kimberly Nash\.br\Date and Time Co-Signed: 09/08/22 12:20 EDT CBC AUTO DIFFon 07-02-2022 BASO # 0.1 103/ul Normal 0.0-0.1 [facility] Comment on above: Performed By: #### C BC #### [facility] [address] [place] [address] Dr. Shama Naylor Basophils/100 WBC (Bld) 0.8 % Normal 0.2-2.0 [facility] Comment on above: Performed By: #### C BC #### [facility] [address] [place] [address] Dr. Shama Naylor EO # 0.1 103/ul Normal 0.0-0.7 [facility] Comment on above: Performed By: #### C BC #### [facility] [address] [place] [address] Dr. Shama Naylor Eosinophils/100 WBC (Bld) 2.0 % Normal 0.9-7.0 [facility] Comment on above: Performed By: #### C BC #### [facility] [address] [place] [address] Dr. Shama Naylor Erythrocyte distribution width (RBC) [Ratio] 13.6 % Normal 11.0-15.0 [facility] Comment on above: Performed By: #### C BC #### [facility] [address] [place] [address] Dr. Shama Naylor Hematocrit (Bld) [Volume fraction] 40.0 % Critically low 42.0-54.0 [facility] Comment on above: Performed By: #### C BC #### [facility] [address] [place] [address] Dr. Shama Naylor Hemoglobin (Bld) [Mass/Vol] 13.6 g/dL Critically low 14.0-18.0 [facility] Comment on above: Performed By: #### C BC #### [facility] [address] [place] [address] Dr. Shama Naylor IG # 0.02 10e3/ul Normal 0.00-0.03 [facility] Comment on above: Performed By: #### C BC #### [facility] [address] [place] [address] Dr. Shama Naylor IG % 0.3 % Normal 0.0-0.5 [facility] Comment on above: Performed By: #### C BC #### [facility] [address] [place] [address] Dr. Shama Naylor LYMPH # 1.6 103/ul Normal 1.2-3.8 [facility] Comment on above: Performed By: #### C BC #### [facility] [address] [place] [address] Dr. Shama Naylor Lymphocytes/100 WBC (Bld) 26.0 % Normal 20.5-60.0 [facility] Comment on above: Performed By: #### C BC #### [facility] [address] [place] [address] Dr. Shama Naylor MANUAL DIFF REQ NO Normal [facility] Comment on above: Performed By: #### C BC #### [facility] [address] [place] [address] Dr. Shama Naylor MCH (RBC) [Entitic mass] 30.8 pg Normal 25.9-34.0 [facility] Comment on above: Performed By: #### C BC #### [facility] [address] [place] [address] Dr. Shama Naylor MCHC (RBC) [Mass/Vol] 34.0 g/dL Normal 29.9-35.2 [facility] Comment on above: Performed By: #### C BC #### [facility] [address] [place] [address] Dr. Shama Naylor MCV (RBC) [Entitic vol] 90.7 fL Normal 80.0-94.0 [facility] Comment on above: Performed By: #### C BC #### [facility] [address] [place] [address] Dr. Shama Naylor MONO # 0.4 103/ul Normal 0.3-0.8 [facility] Comment on above: Performed By: #### C BC #### [facility] [address] [place] [address] Dr. Shama Naylor Monocytes/100 WBC (Bld) 6.1 % Normal 1.7-12.0 [facility] Comment on above: Performed By: #### C BC #### [facility] [address] [place] [address] Dr. Shama Naylor NEUT # 3.9 103/ul Normal 1.4-6.5 [facility] Comment on above: Performed By: #### C BC #### [facility] [address] [place] [address] Dr. Shama Naylor Neutrophils/100 WBC (Bld) 64.8 % Normal 43.0-75.0 [facility] Comment on above: Performed By: #### C BC #### [facility] [address] [place] [address] Dr. Shama Naylor Platelet mean volume (Bld) [Entitic vol] 10.3 fL Normal 9.5-13.5 [facility] Comment on above: Performed By: #### C BC #### [facility] [address] [place] [address] Dr. Shama Naylor PLT 165 103/ul Normal 150-450 [facility] Comment on above: Performed By: #### C BC #### [facility] [address] [place] [address] Dr. Shama Naylor RBC 4.41 106/ul Critically low 4.70-6.10 [facility] Comment on above: Performed By: #### C BC #### [facility] [address] [address] [address] Shama Naylor WBC 6.0 103/ul Normal 4.0-11.0 [facility] Comment on above: Performed By: #### C BC #### [facility] [address] [address] [address] Shama Naylor LIPID PROFILEon 07-02-2022 CHOL-HDL RATIO NORM SEE BELOW Normal [facility] Comment on above: Result Comment: 3.3 - 4.4 LOW RISK 4.4 - 7.1 AVERAGE RISK 7.1 - 11.0 MODERATE RISK >11.0 HIGH RISK Performed By: #### L IPID, BMP, LIVER #### [facility] [address] [address] [address] Shama Naylor Cholesterol [Mass/Vol] 157 mg/dL Normal <=200 [facility] Comment on above: Performed By: #### L IPID, BMP, LIVER #### [facility] [address] [address] [address] Shama Naylor Cholesterol in HDL [Mass/Vol] 58 mg/dL Normal 40-60 [facility] Comment on above: Performed By: #### L IPID, BMP, LIVER #### [facility] [address] [address] [address] Shama Naylor Cholesterol in LDL [Mass/Vol] 81.8 mg/dL Normal [facility] Comment on above: Performed By: #### L IPID, BMP, LIVER #### [facility] [address] [address] [address] Shama Naylor Cholesterol.total /Cholesterol in HDL [Mass ratio] 2.7 {ratio} Normal [facility] Comment on above: Performed By: #### L IPID, BMP, LIVER #### [facility] [address] [address] [address] Shama Naylor HDL NORMAL > or = 60 mg/dl - LO W CARDIOVASCULAR RISK <40 mg/dl - HIGH CARDIOVASCULAR RISK Normal [facility] Comment on above: Performed By: #### L IPID, BMP, LIVER #### [facility] [address] [address] [address] Shama Naylor LDL CALC NORMAL SEE BELOW Normal [facility] Comment on above: Result Comment: <100 mg/dl OPTIMAL 100 - 129 mg/dl NEAR OR ABOVE OPTIMAL 130 - 159 mg/dl BORDERLINE HIGH 160 - 189 mg/dl HIGH >190 mg/dl VERY HIGH Performed By: #### L IPID, BMP, LIVER #### [facility] [address] [address] [address] Shama Naylor Triglyceride [Mass/Vol] 86 mg/dL Normal <=150 [facility] Comment on above: Performed By: #### L IPID, BMP, LIVER #### [facility] [address] [address] [address] Shama Naylor VLDL CALC 17.2 mg/dL Normal [facility] Comment on above: Performed By: #### L IPID, BMP, LIVER #### [facility] [address] [address] [address] Shama Naylor LIVER PROFILEon 07-02-2022 Albumin [Mass/Vol] 3.3 g/dL Critically low 3.4-5.0 [facility] Comment on above: Performed By: #### L IPID, BMP, LIVER #### [facility] [address] [address] [address] Shama Naylor Albumin/Globulin [Mass ratio] 1.0 {ratio} Normal [facility] Comment on above: Performed By: #### L IPID, BMP, LIVER #### [facility] [address] [address] [address] Shama Naylor ALP [Catalytic activity/Vol] 61 U/L Normal 46-116 [facility] Comment on above: Performed By: #### L IPID, BMP, LIVER #### [facility] [address] [address] [address] Shama Naylor ALT [Catalytic activity/Vol] 38 U/L Normal 16-63 [facility] Comment on above: Performed By: #### L IPID, BMP, LIVER #### [facility] [address] [place] [address] Dr. Shama Naylor AST [Catalytic activity/Vol] 14 U/L Critically low 15-37 [facility] Comment on above: Performed By: #### L IPID, BMP, LIVER #### [facility] [address] [place] [address] Dr. Shama Naylor BILI, CONJUGATED 0.1 mg/dL Normal 0.0-0.2 [facility] Comment on above: Performed By: #### L IPID, BMP, LIVER #### [facility] [address] [place] [address] Dr. Shama Naylor Bilirubin [Mass/Vol] 0.4 mg/dL Normal 0.2-1.0 [facility] Comment on above: Performed By: #### L IPID, BMP, LIVER #### [facility] [address] [place] [address] Dr. Shama Naylor Globulin (S) [Mass/Vol] 3.3 g/dL Normal [facility] Comment on above: Performed By: #### L IPID, BMP, LIVER #### [facility] [address] [place] [address] Dr. Shama Naylor Protein [Mass/Vol] 6.6 g/dL Normal 6.4-8.2 [facility] Comment on above: Performed By: #### L IPID, BMP, LIVER #### [facility] [address] [place] [address] Dr. Shama Naylor PROF CHEM 8 (BAS METB)on Anion gap [Moles/Vol] 9.6 mmol/L Normal [facility] Comment on above: Performed By: #### L IPID, BMP, LIVER #### [facility] [address] [place] [address] Dr. Shama Naylor Calcium [Mass/Vol] 8.8 mg/dL Normal 8.5-10.1 [facility] Comment on above: Performed By: #### L IPID, BMP, LIVER #### [facility] [address] [place] [address] Dr. Shama Naylor Chloride [Moles/Vol] 107 mmol/L Normal 98-107 [facility] Comment on above: Performed By: #### L IPID, BMP, LIVER #### [facility] [address] [place] [address] Dr. Shama Naylor CO2 [Moles/Vol] 28.3 mmol/L Normal 21.0-32.0 [facility] Comment on above: Performed By: #### L IPID, BMP, LIVER #### [facility] [address] [address] [address] Shama Naylor Creatinine [Mass/Vol] 1.03 mg/dL Normal 0.70-1.30 [facility] Comment on above: Performed By: #### L IPID, BMP, LIVER #### [facility] [address] [place] [address] Dr. Shama Naylor EGFR-AF PANAMANIAN >60 Normal >=60 [facility] Comment on above: Performed By: #### L IPID, BMP, LIVER #### [facility] [address] [place] [address] Dr. Shama Naylor EGFR-NON AF PANAMANIAN >60 Normal >=60 [facility] Comment on above: Performed By: #### L IPID, BMP, LIVER #### [facility] [address] [place] [address] Dr. Shama Naylor Glucose [Mass/Vol] 103 mg/dL Normal 74-106 [facility] Comment on above: Performed By: #### L IPID, BMP, LIVER #### [facility] [address] [place] [address] Dr. Shama Naylor Potassium [Moles/Vol] 3.9 mmol/L Normal 3.5-5.1 [facility] Comment on above: Performed By: #### L IPID, BMP, LIVER #### [facility] [address] [place] [address] Dr. Shama Naylor Sodium [Moles/Vol] 141 mmol/L Normal 136-145 [facility] Comment on above: Performed By: #### L IPID, BMP, LIVER #### [facility] [address] [place] [address] Dr. Shama Naylor Urea nitrogen [Mass/Vol] 14.0 mg/dL Normal 7.0-18.0 [facility] Comment on above: Performed By: #### L IPID, BMP, LIVER #### [facility] [address] [place], [place] [address] Dr. Shama Naylor Urea nitrogen/Creatini ne [Mass ratio] 13.6 mg/mg Normal [facility] Comment on above: Performed By: #### L IPID, BMP, LIVER #### [facility] [address] [place], [place] [address] Dr. Shama Naylor Office Visit (Cardiology)on 02-11-2022 Follow-up visit Diagnoses/Problems Assessed Paroxysmal SVT (supraventricular tachycardia) (427.0) (I47.1) Hypertension (401.9) (I10) HLD (hyperlipidemia) (272.4) (E78.5) Morbid obesity with BMI of 40.0-44.9, adult (278.01,V85.41) (E66.01,Z68.41) Former smoker (V15.82) (Z87.891) Quit in 1970s Orders Morbid obesity with BMI of 40.0-44.9, adult Healthy Weight Tips; Status:Complete; Done: [id number] Some eating tips that can help you lose weight.; Status:Complete; Done: 43Yai2454 Paroxysmal SVT (supraventricular tachycardia) IO EKG Electrocardiogram- 12 Lead; Status:Complete; Done: 90Sfo0306 SocHx: Former smoker Tobacco Use Screening; Status:Complete; Done: [id number] Patient Instructions Please bring all medicines, vitamins, [...] negative for complaint. Vitals Vital Signs Recorded: 10Zbm2654 11:05AM Heart Rate73, Apical Gjsngbxt310, LUE, Sitting Gbozrobhm69, LUE, Sitting Height6 ft 2 in Pjcpaq110 lb BMI Iitxdfgwjh66.57 kg/m2 BSA Calculated2.64 Tobacco Useb) No PHQ-2 [...] Tobacco Screening.on Adult depression screening assessment No [facility] [employer] DO Work Phone: Fall risk assessment a) No falls within the last year [facility] [employer] DO Work Phone: Tobacco use status CPHS b) No [facility] [employer] 250 DO Work Phone: Falls Risk Screeningon 08-12 Fall risk assessment a) No falls within the last year [facility] [facility] [employer] 250 DO Work Phone: Office Visit (Cardiology)on [...] Weight Tips; Status:Complete - Retrospective Authorization; Done: [id number] SocHx: Former smoker Tobacco Use Screening; Status:Complete; Done: [id number] Unlinked Stop: Aspirin 81 MG Oral Tablet [...] negative for complaint. Vitals Vital Signs Recorded: [id number] 01:46PM Heart Rate72, R Radial Ommtipoh785, RUE, Sitting Xlhreecdi85, RUE, Sitting Height6 ft 2 in Qtjrnb473 lb BMI Qirutxsxrt13.67 kg/m2 BSA Calculated2.61 Tobacco Useb) No Fall [...] Feb 15 2021 5:53PM EST (Author) Normal [employer] Tobacco Screening.on Fall risk assessment a) No falls within the last year [facility] 250 DO Work Phone: Tobacco use status [facility] b) No [facility] 250 DO Work Phone: [facility] CARDIAC STRESS/REST INJE CTIONon 11-29-[address] [facility] CARDIAC STRESS/REST INJECTION Patient Name: LUIS LUIS STUDY: MYOCARDIAL PERFUSION STRESS TEST WITH LEXISCAN Performing facility: [facility], [address] [place] [address], [address], [place] [address] [facility] Provider: Mary Tam RN, TONGUE TRIMMER PCP: Dr. Julianna Brewer Supervising provider: Sunday Rai DO, [facility] INDICATION: Chest Pain; HISTORY: Gender: M; Age: 69 y/o ; Height: 187.96 cm; Weight: 025.3294534 kg. High Cholesterol; HTN; Palpitations; Chest Pain; SOB; Quit smoking 40 years ago. COMPARISON: No comparison. ACCESSION NUMBER(S): [id number]; [id number]; [id number] ORDERING CLINICIAN: MARY TAM TECHNIQUE: TWO DAY [...] Electronically signed by: JAMIL JARRELL MD Normal [facility] Vital Signs Date Time Vital Sign Value Performing Clinician Facility 03-08-2024 08:56-0500 Body height 188 cm Mary AVERY Work Phone: [facility] 03-08-2024 08:56-0500 Body mass index (BMI) [Ratio] 41.09 kg/m2 Mary AVERY Work Phone: [facility] 03-08-2024 08:56-0500 Body weight 145.15 kg Mary AVERY Work Phone: [facility] 03-08-2024 08:56-0500 Diastolic blood pressure 80 mm[Hg] Mary Tam JUNIOR NETWORK ENGINEER-TONGUE TRIMMER Work Phone: [facility] 03-08-2024 08:56-0500 Heart rate 68 /min Mary Tam JUNIOR NETWORK ENGINEER-TONGUE TRIMMER Work Phone: [facility] 03-08-2024 08:56-0500 Systolic blood pressure 136 mm[Hg] Mary Tam JUNIOR NETWORK ENGINEER-TONGUE TRIMMER Work Phone: [facility] 02-17-2024 13:36-0500 Body height 188 cm Kevin Brewer MD Work Phone: [facility] 02-17-2024 13:36-0500 Body mass index (BMI) [Ratio] 40.83 kg/m2 Kevin Brewer MD Work Phone: [facility] 02-17-2024 13:36-0500 Body temperature 97.11 [degF] Kevin Brewer MD Work Phone: [facility] 02-17-2024 13:36-0500 Body weight 144.24 kg Kevin Brewer MD Work Phone: [facility] 02-17-2024 13:36-0500 Diastolic blood pressure 72 mm[Hg] Kevin Brewer MD Work Phone: [facility] 02-17-2024 13:36-0500 Heart rate 72 /min Kevin Brewer MD Work Phone: [facility] 02-17-2024 13:36-0500 Respiratory rate 18 /min Kevin Brewer MD Work Phone: [facility] 02-17-2024 13:36-0500 SaO2% (BldA) [Mass fraction] 95 % Kevin Brewer MD Work Phone: [facility] 02-17-2024 13:36-0500 Systolic blood pressure 144 mm[Hg] Kevin Brewer MD Work Phone: [facility] 12-21-2023 08:54-0400 Body height 188 cm Kevin Brewer MD Work Phone: [facility] 12-21-2023 08:54-0400 Body mass index (BMI) [Ratio] 40.19 kg/m2 Kevin Brewer MD Work Phone: [facility] 12-21-2023 08:54-0400 Body temperature 96.6 [degF] Kevin Brewer MD Work Phone: [facility] 12-21-2023 08:54-0400 Body weight 141.98 kg Kevin Brewer MD Work Phone: [facility] 12-21-2023 08:54-0400 Diastolic blood pressure 84 mm[Hg] Kevin Brewer MD Work Phone: [facility] 12-21-2023 08:54-0400 Heart rate 87 /min Kevin Brewer MD Work Phone: [facility] 12-21-2023 08:54-0400 Respiratory rate 20 /min Kevin Brewer MD Work Phone: [facility] 12-21-2023 08:54-0400 SaO2% (BldA) [Mass fraction] 94 % Kevin Brewer MD Work Phone: [facility] 12-21-2023 08:54-0400 Systolic blood pressure 150 mm[Hg] Kevin Brewer MD Work Phone: [facility] 12-02-2023 13:42-0400 Body height 188 cm Naida Hobson DOG CATCHER Work Phone: [facility] 12-02-2023 13:42-0400 Body mass index (BMI) [Ratio] 40.06 kg/m2 Naida Hobson DOG CATCHER Work Phone: [facility] 12-02-2023 13:42-0400 Body weight 141.52 kg Naida Hboson DOG CATCHER Work Phone: [facility] 12-02-2023 13:42-0400 Diastolic blood pressure 92 mm[Hg] Naida Hobson DOG CATCHER Work Phone: [facility] [employer] 12-02-2023 13:42-0400 Heart rate 75 /min Naida Batistar DOG CATCHER Work Phone: [facility] 12-02-2023 13:42-0400 Systolic blood pressure 148 mm[Hg] Naida Padillamor DOG CATCHER Work Phone: [facility] 10-28-2023 10:12-0400 Body height 188 cm Franchesca Nj DO Work Phone: [facility] 10-28-2023 10:12-0400 Body mass index (BMI) [Ratio] 41.6 kg/m2 Franchesca Nj DO Work Phone: [facility] 10-28-2023 10:12-0400 Body weight 146.97 kg Franchesca Nj DO Work Phone: [facility] 10-28-2023 10:12-0400 Diastolic blood pressure 80 mm[Hg] Franchesca Nj DO Work Phone: [facility] 10-28-2023 10:12-0400 Heart rate 76 /min Franchesca Nj DO Work Phone: [facility] 10-28-2023 10:12-0400 Respiratory rate 20 /min Franchesca Nj DO Work Phone: [facility] 10-28-2023 10:12-0400 SaO2% (BldA) [Mass fraction] 94 % Franchesca Nj DO Work Phone: [facility] 10-28-2023 10:12-0400 Systolic blood pressure 142 mm[Hg] Franchesca Nj DO Work Phone: [facility] 04-07-2023 13:06-0500 Body temperature 97.9 [degF] SARAVANAN Butler MD Work Phone: [facility] 04-07-2023 13:06-0500 Body weight 149.2 kg SARAVANAN Butler MD Work Phone: [facility] 04-07-2023 13:06-0500 Diastolic blood pressure 83 mm[Hg] SARAVANAN Butler MD Work Phone: [facility] 04-07-2023 13:06-0500 Heart rate 80 /min SARAVANAN Butler MD Work Phone: [facility] 04-07-2023 13:06-0500 Respiratory rate 16 /min SARAVANAN Butler MD Work Phone: [facility] 04-07-2023 13:06-0500 SaO2% (BldA) [Mass fraction] 96 % SARAVANAN Butler MD Work Phone: [facility] 04-07-2023 13:06-0500 Systolic blood pressure 139 mm[Hg] SARAVANAN Butler MD Work Phone: [facility] 02-10-2023 11:10-0500 Body height 188 cm Parveen Santo MD Work Phone: [facility] 02-10-2023 11:10-0500 Body mass index (BMI) [Ratio] 41.6 kg/m2 Parveen Santo MD Work Phone: [facility] 02-10-2023 11:10-0500 Body weight 146.97 kg Parveen Santo MD Work Phone: [facility] 02-10-2023 11:10-0500 Diastolic blood pressure 84 mm[Hg] Parveen Santo MD Work Phone: [facility] 02-10-2023 11:10-0500 Heart rate 67 /min Parveen Santo MD Work Phone: [facility] 02-10-2023 11:10-0500 Systolic blood pressure 132 mm[Hg] Parveen Santo MD Work Phone: [facility] 09-30-2022 13:55-0400 Body temperature 96.69 [degF] SARAVANAN Butler MD Work Phone: [facility] 09-30-2022 13:55-0400 Body weight 144.97 kg SARAVANAN Butler MD Work Phone: [facility] 09-30-2022 13:55-0400 Diastolic blood pressure 85 mm[Hg] SARAVAANN Butler MD Work Phone: [facility] 09-30-2022 13:55-0400 Heart rate 92 /min SARAVANAN Butler MD Work Phone: [facility] 09-30-2022 13:55-0400 Respiratory rate 18 /min SARVAANAN Butler MD Work Phone: [facility] 09-30-2022 13:55-0400 SaO2% (BldA) [Mass fraction] 94 % SARAVANAN Butler MD Work Phone: [facility] 09-30-2022 13:55-0400 Systolic blood pressure 143 mm[Hg] SARAVANAN Butler MD Work Phone: [facility] 09-08-2022 10:50-0400 Blood Pressure Location Yin HAWK [facility] 09-08-2022 10:50-0400 Diastolic blood pressure 73 mm[Hg] Yin HAWK [facility] 09-08-2022 10:50-0400 Heart rate 72 /min Yin HWAK [facility] 09-08-2022 10:50-0400 Respiratory rate 16 /min Yin HAWK [facility] 09-08-2022 10:50-0400 Systolic blood pressure 132 mm[Hg] Yin HAWK [facility] 04-01-2022 14:41-0500 Body temperature 97.2 [degF] SARAVANAN Butler MD Work Phone: [facility] 04-01-2022 14:41-0500 Body weight 142.79 kg SARAVANAN Butler MD Work Phone: [facility] 04-01-2022 14:41-0500 Diastolic blood pressure 90 mm[Hg] SARAVANAN Butler MD Work Phone: [facility] 04-01-2022 14:41-0500 Heart rate 82 /min SARAVANAN Butler MD Work Phone: [facility] 04-01-2022 14:41-0500 Respiratory rate 18 /min SARAVANAN Butler MD Work Phone: [facility] 04-01-2022 14:41-0500 SaO2% (BldA) [Mass fraction] 98 % SARAVANAN Butler MD Work Phone: [facility] 04-01-2022 14:41-0500 Systolic blood pressure 159 mm[Hg] SARAVANAN Butler MD Work Phone: [facility] 03-21-2022 11:25-0500 Blood Pressure Location Yin HAWK [facility] 03-21-2022 11:25-0500 Diastolic blood pressure 80 mm[Hg] Yin HAWK [facility] 03-21-2022 11:25-0500 Heart rate 76 /min Yin HAWK [facility] 03-21-2022 11:25-0500 Respiratory rate 16 /min Yin HAWK [facility] 03-21-2022 11:25-0500 Systolic blood pressure 138 mm[Hg] Yin HAWK [facility] 02-11-2022 11:05-0500 Body height 187.96 cm Kevin Brewer Work Phone: [facility] 250 DO Work Phone: 02-11-2022 11:05-0500 Body mass index (BMI) [Ratio] 40.57 kg/m2 Kevin Scott Naderer Work Phone: [facility] 250 DO Work Phone: 02-11-2022 11:05-0500 Body surface area Derived from formula 2.64 m2 Kevin Scott Naderer Work Phone: [facility] 250 DO Work Phone: 02-11-2022 11:05-0500 Body weight 143.34 kg Kevin Scott Naderer Work Phone: [facility] 250 DO Work Phone: 02-11-2022 11:05-0500 Diastolic blood pressure 78 mm[Hg] Kevin Scott Naderer Work Phone: [facility] 250 DO Work Phone: 02-11-2022 11:05-0500 Heart rate 73 /min Kevin Scott Naderer Work Phone: [facility] 250 DO Work Phone: 02-11-2022 11:05-0500 Systolic blood pressure 132 mm[Hg] Kevin Lovelaceerer Work Phone: [facility] 250 DO Work Phone: 09-30-2021 10:54-0400 Blood Pressure Location Yin HAWK [facility] 09-30-2021 10:54-0400 Diastolic blood pressure 84 mm[Hg] Yin HAWK [facility] 09-30-2021 10:54-0400 Heart rate 75 /min Yin HAWK [facility] 09-30-2021 10:54-0400 Respiratory rate 16 /min Yinlucy HAWK [facility] 09-30-2021 10:54-0400 Systolic blood pressure 136 mm[Hg] Yin HAWK [facility] 08-14-2021 09:47-0400 Body temperature 96.69 [degF] SARAVANAN Butler MD Work Phone: [facility] 08-14-2021 09:47-0400 Body weight 141.98 kg SARAVANAN Butler MD Work Phone: [facility] 08-14-2021 09:47-0400 Diastolic blood pressure 82 mm[Hg] SARAVANAN Butler MD Work Phone: [facility] 08-14-2021 09:47-0400 Heart rate 82 /min SARAVANAN Butler MD Work Phone: [facility] 08-14-2021 09:47-0400 Respiratory rate 20 /min SARAVANAN Butler MD Work Phone: [facility] 08-14-2021 09:47-0400 SaO2% (BldA) [Mass fraction] 94 % SARAVANAN Butler MD Work Phone: [facility] 08-14-2021 09:47-0400 Systolic blood pressure 131 mm[Hg] SARAVANAN Butler MD Work Phone: [facility] 08-12-2021 10:15-0400 Body height 187.96 cm Kevin Brewer Work Phone: [facility] 250 DO Work Phone: 08-12-2021 10:15-0400 Body mass index (BMI) [Ratio] 39.93 kg/m2 Kevin Brewer Work Phone: [facility] 250 DO Work Phone: 08-12-2021 10:15-0400 Body surface area Derived from formula 2.62 m2 Kevin Scott Naderer Work Phone: [facility] 250 DO Work Phone: 08-12-2021 10:15-0400 Body weight 141.07 kg Kevin Scott Naderer Work Phone: [facility] 250 DO Work Phone: 08-12-2021 10:15-0400 Diastolic blood pressure 80 mm[Hg] Kevin Scott Naderer Work Phone: [facility] 250 DO Work Phone: 08-12-2021 10:15-0400 Heart rate 69 /min Kevin Lovelaceerer Work Phone: [facility] 250 DO Work Phone: 08-12-2021 10:15-0400 Systolic blood pressure 130 mm[Hg] Kevin Lovelaceerer Work Phone: [facility] 250 DO Work Phone: 08-09-2021 09:42-0400 Blood Pressure Location Yin HAWK [facility] 08-09-2021 09:42-0400 Diastolic blood pressure 80 mm[Hg] Yin HAWK [facility] 08-09-2021 09:42-0400 Heart rate 75 /min Yin HAWK [facility] 08-09-2021 09:42-0400 Respiratory rate 16 /min Yin HAWK [facility] 08-09-2021 09:42-0400 Systolic blood pressure 134 mm[Hg] [facility]in HAWK [facility] 02-15-2021 13:46-0500 Body height 187.96 cm Kevin Scott Naderer Work Phone: [facility] 250 DO Work Phone: 02-15-2021 13:46-0500 Body mass index (BMI) [Ratio] 39.67 kg/m2 Kevin Scott Naderer Work Phone: [facility] 250 DO Work Phone: 02-15-2021 13:46-0500 Body surface area Derived from formula 2.61 m2 Kevin Scott Naderer Work Phone: [facility] 250 DO Work Phone: 02-15-2021 13:46-0500 Body weight 140.16 kg Kevin Scott Naderer Work Phone: [facility] 250 DO Work Phone: 02-15-2021 13:46-0500 Diastolic blood pressure 80 mm[Hg] Kevin Scott Naderer Work Phone: [facility] 250 DO Work Phone: 02-15-2021 13:46-0500 Heart rate 72 /min Kevin Scott Naderer Work Phone: [facility] 250 DO Work Phone: 02-15-2021 13:46-0500 Systolic blood pressure 118 mm[Hg] Kevin Scott Naderer Work Phone: [facility] 250 DO Work Phone: Encounters Encounter Date Encounter Type Care Provider Facility Start: 05-13-2024 ambulatory Yin Amanda Cain ty:UCHE Marta Start: 03-14-2024 End: 03-14-2024 ambulatory Sahntelle Ornelas MD Facility: [facility] Start: 03-08-2024 End: 03-08-2024 Office outpatient visit 25 minutes Mary Presley Hudson JUNIOR NETWORK ENGINEER-TONGUE TRIMMER Work Phone: [facility] Comment on above: Malignant neoplasm o f prostate (Multi) (Primary Dx); Paroxysmal SVT (supraventricular tachycardia) ([facility]); Body mass index (BMI) 40.0-44.9, adult (Multi); High risk medication use; Mixed hyperlipidemia; Primary hypertension; Bifascicular block; Morbid obesity with BMI of 40.0-44.9, adult (Multi); Obstructive sleep apnea syndrome Start: 03-08-2024 End: 03-08-2024 ambulatory [facility] Start: 02-22-2024 End: 02-22-2024 ambulatory Dayna Pulido TARRING MACHINE OPERATOR Work Phone: [facility] Comment on [...] Start: 02-17-2024 End: 02-17-2024 ambulatory Dayna Pulido TARRING MACHINE OPERATOR Work Phone: [facility] Comment on above: Lumbar radiculopathy (Primary Dx); Chronic right-sided low back pain with right-sided sciatica Start: 02-15-2024 End: 02-15-2024 Bamboo flowsheet Dayna Pulido TARRING MACHINE OPERATOR Work Phone: [facility] Start: 02-15-2024 End: 02-15-2024 Bamboo moi Pulido TARRING MACHINE OPERATOR Work Phone: [facility] Start: 02-15-2024 End: 02-15-2024 ambulatory Dayna Pulido TARRING MACHINE OPERATOR Work Phone: [facility] Comment on above: Lumbar radiculopathy (Primary Dx); Chronic right-sided low back pain with right-sided sciatica Start: 02-10-2024 End: 02-10-2024 Bamboo moi Pulido TARRING MACHINE OPERATOR Work Phone: [facility] Start: 02-10-2024 End: 02-10-2024 Bamboo moi Pulido TARRING MACHINE OPERATOR Work Phone: [facility] Start: 02-10-2024 End: 02-10-2024 ambulatory Dayna Pulido TARRING MACHINE OPERATOR Work Phone: [facility] Comment on above: Lumbar radiculopathy (Primary Dx); Chronic right-sided low back pain with right-sided sciatica Start: 02-08-2024 End: 02-08-2024 Bamboo moi Pulido TARRING MACHINE OPERATOR Work Phone: [facility] Start: 02-08-2024 End: 02-08-2024 Bamboo moi Pulido TARRING MACHINE OPERATOR Work Phone: [facility] Start: 02-08-2024 End: 02-08-2024 ambulatory Dayna Pulido TARRING MACHINE OPERATOR Work Phone: [facility] Comment on above: Lumbar radiculopathy (Primary Dx); Chronic right-sided low back pain with right-sided sciatica Start: 02-05-2024 End: 02-05-2024 Bamboo flowsheet Cheryl Kelbley TARRING MACHINE OPERATOR [facility] Start: 02-05-2024 End: 02-05-2024 Bamboo flowsheet Cheryl Kelbley TARRING MACHINE OPERATOR [facility] Start: 02-05-2024 End: 02-05-2024 ambulatory Cheryl Kelbley TARRING MACHINE OPERATOR [facility] Comment on above: Lumbar radiculopathy (Primary Dx); Chronic right-sided low back pain with right-sided sciatica Start: 02-03-2024 End: 02-03-2024 Bamboo flowsheet Dayna Pulido TARRING MACHINE OPERATOR Work Phone: [facility] Start: 02-03-2024 End: 02-03-2024 Bamboo flowsheet Dayna Pulido TARRING MACHINE OPERATOR Work Phone: [facility] Start: 02-03-2024 End: 02-03-2024 ambulatory Dayna Pulido TARRING MACHINE OPERATOR Work Phone: [facility] Comment on [...] 01-25-2024 End: 01-25-2024 Bamboo flowsheet Dayna Pulido TARRING MACHINE OPERATOR Work Phone: [facility] Start: 01-25-2024 End: 01-25-2024 Bamboo flowsheet Dayna Pulido TARRING MACHINE OPERATOR Work Phone: [facility] Start: 01-25-2024 End: 01-25-2024 ambulatory Dayna Pulido TARRING MACHINE OPERATOR Work Phone: [facility] Comment on above: Lumbar radiculopathy (Primary Dx); Chronic right-sided low back pain with right-sided sciatica Start: 01-21-2024 End: 01-21-2024 Bamboo flowsheet Dayna Pulido TARRING MACHINE OPERATOR Work Phone: [facility] Start: 01-21-2024 End: 01-21-2024 Bamboo flowsheet Dayna Pulido TARRING MACHINE OPERATOR Work Phone: [facility] Start: 01-21-2024 End: 01-21-2024 ambulatory Dayna Pulido TARRING MACHINE OPERATOR Work Phone: [facility] Comment on above: Lumbar radiculopathy (Primary Dx); Chronic right-sided low back pain with right-sided sciatica Start: 01-20-2024 End: 01-20-2024 Bamboo flowsheet Franchesca Gray PT Work Phone: [facility] Start: 01-20-2024 End: 01-20-2024 Bamboo flowsheet Franchesca Kwonggs PT Work Phone: [facility] Start: [...] right-sided sciatica Start: 12-21-2023 End: 12-21-2023 Bamboo flowseve Brewer MD Work Phone: [facility] Start: 12-21-2023 End: 12-21-2023 Bamboo flowsheet Kevin Brewer MD Work Phone: [facility] Start: 12-21-2023 End: 12-21-2023 ambulatory KEVIN BREWER Not Available Start: 12-21-2023 End: 12-21-2023 Office outpatient visit 25 minutes Kevin Brewer MD Work Phone: [facility] Comment on above: Essential hypertensi on, benign [...] 12-02-2023 End: 12-02-2023 Bamboo flowsheet Naida Hobson DOG CATCHER Work Phone: [facility] Start: 12-02-2023 End: 12-02-2023 Bamboo flowsheet Naida Hobson DOG CATCHER Work Phone: [facility] Start: 12-02-2023 End: 12-02-2023 ambulatory NAIDA HOBSON Not Available Start: 12-02-2023 End: 12-02-2023 Office outpatient visit 25 minutes Naida Hobson DOG CATCHER Work Phone: [facility] Comment on above: Morbid obesity due t o excess calories (CMS/HCC) (Primary Dx); RENAE on CPAP; Hypoxia; Snoring; Daytime hypersomnolence Start: 11-17-2023 End: 11-17-2023 ambulatory Franchesca [facility] Work Phone: Start: 11-17-2023 End: 11-17-2023 Departed Referred DO Franchesca Nj Work Phone: [facility] Start: 10-28-2023 End: 10-28-2023 Bamboo flowsheet Franchesca Nj DO Work Phone: [facility] Start: 10-28-2023 End: 10-28-2023 Bamboo flowsheet Franchesca Nj DO Work Phone: [facility] Start: 10-28-2023 End: 10-28-2023 Patient encounter procedure Franchesca Nj DO Work Phone: [facility] Comment on above: Encounter for screen ing colonoscopy (Primary Dx) Start: 10-28-2023 End: 10-28-2023 ambulatory FRANCHESCA [place] Not Available Start: 07-13-2023 End: 07-13-2023 ambulatory FRANCHESCA [place] Not Available Start: 06-29-2023 End: 06-29-2023 ambulatory KEVIN BREWER Not Available Start: 05-11-2023 End: 05-12-2023 ambulatory Yin HAWK Facility:[facility] Start: 05-11-2023 End: 05-11-2023 Patient encounter procedure Yin HAWK [facility] Start: 04-07-2023 End: 04-07-2023 ambulatory Demond BUTLER Facility:[facility] Start: 04-07-2023 End: 04-07-2023 Patient encounter procedure Demond Butler MD Work Phone: Rad[facility] On[facility] Comment on above: Malignant neoplasm o f prostate (HCC) (Primary Dx) Start: 02-10-2023 End: 02-10-2023 Office outpatient visit 25 minutes Parveen Santo MD Work Phone: [facility] Comment on above: Paroxysmal SVT (supr aventricular tachycardia) (Primary Dx); Primary hypertension; Mixed hyperlipidemia; Morbid obesity with BMI of 40.0-44.9, adult (CMS/HCC); Bifascicular block Start: 09-30-2022 End: 09-30-2022 ambulatory KEVIN BREWER Facility:[facility] Start: 09-30-2022 End: 09-30-2022 Patient encounter procedure Demond Butler MD Work Phone: [facility] Comment on above: Malignant neoplasm o f prostate (HCC) (Primary Dx) Start: 09-08-2022 End: 09-09-2022 ambulatory Yin HAWK Facility:[facility] Start: 09-08-2022 End: 09-08-2022 Patient encounter procedure Yin HAWK [facility] Start: 07-25-2022 Rx Renewal Kevin Brewer Work Phone: [facility] 250 DO Work Phone: Start: 07-02-2022 End: 07-03-[address] KEVIN BREWER Facility: Start: 04-07-2022 Rx Renewal [facility] Work Phone: Start: 04-01-2022 End: 04-01-2022 ambulatory Yancy Oneill APRN.TONGUE TRIMMER Work Phone: Hematology/Oncology Comment on above: Prostate cancer (HCC ) Start: 04-01-2022 End: 04-01-2022 Patient encounter procedure Yancy Oneill APRN.TONGUE TRIMMER Work Phone: [facility] Comment on above: Malignant neoplasm o f prostate (HCC) (Primary Dx) Start: 03-21-2022 End: 03-21-2022 Patient encounter procedure Yin HAWK [facility] Start: 03-11-2022 End: 03-12-[address] KEVIN BREWER Facility: Start: 02-11-2022 ambulatory Parveen Santo II Facility: Start: 02-11-2022 Office outpatient vi sit 15 minutes Kevin Brewer [facility] Work Phone: Start: 02-05-2022 Telephone encounter G Chavez Butler MD Work Phone: Radiation Oncology Comment on above: Future Appointment Start: 01-14-2022 Rx Renewal Kevin Brewer [facility] Work Phone: Start: 09-30-2021 End: 09-30-2021 Patient encounter procedure Yin HAWK [facility] Start: 09-23-2021 End: 09-24-[address] KEVIN BREWER Facility: Start: 08-14-2021 End: 08-14-2021 Patient encounter procedure Demond Butler MD Work Phone: [facility]cology Comment on above: Malignant neoplasm o f prostate (HCC) (Primary Dx) Start: 08-12-2021 Patient encounter procedure Kevin Brewer [facility]: [facility] Work Phone: Start: 08-12-2021 ambulatory Parveen Santo II Facility: Start: 08-09-2021 End: 08-09-2021 Patient encounter procedure Yin HAWK [facility] Start: 08-05-2021 Telephone encounter Demond Butler [...] CT Start: 07-24-2021 KASSIE Brewer Work Phone: [facility] 250 DO Work Phone: Start: 07-16-2021 End: 07-17-[address] KEVIN BREWER Facility:H1 Start: 07-04-2021 End: 07-04-2021 Patient encounter procedure Abdulaziz DAWSON [facility] Start: 06-27-2021 End: 06-28-2021 Patient encounter [...] 04-26-2021 Rx Renewal Kevin Brewer Work Phone: [facility] 250 DO Work Phone: Start: 04-09-2021 End: 04-09-2021 Subsequent hospital visit by physician Demond Butler MD Work Phone: Radiology Pet CT Start: 02-15-2021 ambulatory Parveen Santo II Facility: Start: 02-15-2021 Office outpatient vi sit 15 minutes Kevin Brewer Work Phone: [facility] 250 DO Work Phone: Start: 01-22-2021 Rx Renewal Kevin Brewer Work Phone: [facility] 250 DO Work Phone: Procedures Date Procedure Procedure Detail Performing Clinician Start: 03-08-2024 Ecg routine ecg w/le ast 12 lds w/i&r Mary Tam JUNIOR NETWORK ENGINEER-TONGUE TRIMMER Work Phone: Start: 12-03-2023 MHPT PSA, DIAGNOSTIC Ge neric External Data Provider Start: 11-17-2023 Colonoscopy Naida Alcantar lmor DOG CATCHER Work Phone: Start: 08-25-2023 Colonoscopy Franchesca Lowery tt DO Work Phone: Start: 03-31-2023 PSA screening [facility] Provi kilo Start: 02-10-2023 Ecg routine ecg w/le ast 12 lds w/i&r Parveen Santo MD Work Phone: Start: 08-29-2022 PSA screening [facility] Provi kilo Start: 03-11-2022 End: 03-11-2022 PSA screening [facility] Provider Comment on above: Performed By: #### P SAD #### [facility] [address] [place] [address] Dr. Shama Naylor Start: 09-23-[address] KEVIN BROOKS Comment on above: Performed By: #### P SAD #### [facility] [address] [place] [address] Dr. Shama Naylor Start: 07-16-2021 End: 07-16-2021 PSA screening [facility] Provider Comment on above: Performed By: #### P SAD #### [facility] [address] [place] [address] Dr. Shama Naylor Start: 06-27-2021 Brachytherapy Yin W ATEBONIFACIO Start: 03-14-2021 Transrectal biopsy o f prostate Abdulaziz RICE Arthroplasty of wrist Abdulaziz RICE Colonoscopy Abdulaziz RICE Surgical repair of u pper extremity Kevin Brewer Work Phone: Total colonoscopy Kevin Lovelace erer Work Phone: Plan of Treatment Date Care Activity Detail Author Start: 11-16-2033 Screening for malign ant neoplasm of colon [facility] Start: 08-24-2033 Screening for malign ant neoplasm of colon [facility] Start: 2025 RSV Vaccine (1 - 1-d ose 75+ series) RSV Vaccine (1 - 1-dose 75+ series) [facility] Start: 12-20-2024 Medicare Annual Well ness (AWV) Medicare Annual Wellness (AWV) [facility] Start: 09-05-2024 End: 09-05-2024 Patient encounter procedure 09/05/2024 10:00 AM EDT Office Visit [facility] [address] [facility] [address] [place] [address] Esther Mejía MD [address] [facility] [address] [place] [address] [facility] Start: 04-05-2024 End: 04-05-2024 Patient encounter procedure 04/05/2024 1:15 PM EST Office Visit Radiation Oncology [address] [place] [address] [place] [address] Demond Butler MD [address] [place] [address] [place] [address] 1 yr rv Radiation Oncology Comment on above: 1 yr rv Start: 03-23-2024 End: 03-23-2024 Patient encounter procedure 03/23/2024 9:00 AM EST Office Visit [facility] [address] [place] [address] Kevin Brewer MD [address] [place] [address] [facility] Start: 03-08-2024 End: 03-08-2024 Patient encounter procedure 03/08/2024 9:00 AM EST Office Visit [facility] [address] [facility] [address] [place] [address] Parveen Santo MD [address] [facility] [address] [place] [address] [facility] Start: 02-22-2024 End: 02-22-2024 ambulatory 02/22/2024 7:00 AM EST Treatment [facility] [address] [place] [phone] Dayna Pulido, TARRING MACHINE OPERATOR [address] [place] [address] [facility] Start: 02-17-2024 End: 02-16-2025 XR Hip - right 3 Views XR hip right 2 or 3 views Imaging Routine Chronic right hip pain Expected: 02/17/2024, Expires: 02/16/2025 [facility] Work Phone: Comment on above: Expected: 02/17/2024 , Expires: 02/16/2025 Start: 02-17-2024 End: 02-17-2024 Patient encounter procedure 02/17/2024 1:30 PM EST Office Visit [facility] [address] [place] [address] Kevin Brewer MD [address] [place] [address] [facility] Start: 02-17-2024 End: 02-17-2024 ambulatory 02/17/2024 9:00 AM EST Treatment [facility] [address] [place] [phone] Dayna Pulido, TARRING MACHINE OPERATOR [address] [place] [address] [facility] Start: 02-15-2024 End: 02-15-2024 [...] Treatment [facility] [address] [place] [phone] Franchesca Gray, PT [address] [place], [place] [id number] Arrived [facility] Comment on above: [...] 12/21/2023 8:45 AM EDT Office Visit [facility] [address] [place] [phone] Kevin Brewer MD [address] [place] [phone] [facility] Start: 11-01-2023 COVID-19 Vaccine ( season) COVID-19 Vaccine ( season) [facility] Start: 11-01-2023 Covid-19 Vaccine ( season) Covid-19 Vaccine ( season) [facility] Start: 11-01-2023 Influenza vaccination Influenza Vacc ine (#1) [facility] Start: 10-28-2023 End: 10-28-2023 Patient encounter procedure 10/28/2023 10:00 AM EDT Office Visit [facility] [address] [place] [address] Franchesca Nj [address] [place] [address] Arrived ANNA MERCADO Comment on above: Arrived Start: 04-07-2023 End: 07-07-2023 Prostate specific Ag [Mass/volume] in Serum or Plasma PSA/PROSTSPECAG DIAG Lab Routine Malignant neoplasm of prostate (HCC) Expected: 04/07/2023, Expires: 07/07/2023 [facility] Work Phone: Comment on above: Expected: 04/07/2023 , Expires: 07/07/2023 Start: 04-02-2023 End: 06-02-2023 Prostate specific Ag [Mass/volume] in Serum or Plasma PSA/PROSTSPECAG DIAG Lab Routine Malignant neoplasm of prostate (HCC) Expected: 04/02/2023 (Approximate), Expires: 06/02/2023 [facility] Work Phone: Comment on above: Expected: 04/02/2023 (Approximate), Expires: 06/02/2023 Start: 03-02-2023 Advance Directive Discussion Advance Directive Discussion [facility] Start: 03-02-2023 Depression Assessment Depression Ass essment [facility] Start: 02-10-2023 FUV, Provider: Parveen Santo, Status: Pen, Time: 11:00 AM FUV, Provider: Parveen Santo, Status: Pen, Time: 11:00 AM [facility] 250 DO Work Phone: Start: 10-31-2022 Covid-19 Vaccine ( season) Covid-19 Vaccine () [facility] Start: 10-31-2022 Influenza vaccination [facility] Start: 03-02-2022 ADVANCE DIRECTIVE DISCUSSION ADVANCE DIRECTIVE DISCUSSION [facility] Start: 03-02-2022 DEPRESSION ASSESSMENT DEPRESSION ASS ESSMENT [facility] Start: 02-11-2022 FUV, Provider: Parveen Santo, Status: Pen, Time: 10:50 AM FUV, Provider: Parveen Santo, Status: Pen, Time: 10:50 AM [facility] Work Phone: Start: 10-31-2021 Influenza vaccination [facility] Start: 04-15-2021 COVID-19 VACCINE (4 - Booster for Pfizer series) COVID-19 VACCINE (4 - Booster for Pfizer series) [facility] Start: 03-02-2021 ADVANCE DIRECTIVE DISCUSSION ADVANCE DIRECTIVE DISCUSSION [facility] Start: 03-02-2021 DEPRESSION ASSESSMENT DEPRESSION ASS ESSMENT [facility] Start: 02-15-2021 FUV, Provider: Parveen Santo, Status: Pen, Time: 1:30 PM FUV, Provider: Parveen Santo, Status: Pen, Time: 1:30 PM [facility] DO Work Phone: Start: 02-07-2021 COVID-19 VACCINE (4 - Booster for Pfizer series) COVID-19 VACCINE (4 - Booster for Pfizer series) [facility] Start: 02-07-2021 COVID-19 VACCINE (4 - Pfizer series) COVID-19 VACCINE (4 - Pfizer series) [facility] Start: 07-02-2015 Abdominal aortic aneurysm screening Abdominal Aortic Aneurysm (AAA) Screening [facility] Start: 07-02-2015 Pneumococcal Vaccine : 65+ (1 of 1 - PCV) Pneumococcal Vaccine: 65+ (1 of 1 - PCV) [facility] Start: 07-02-2015 Pneumococcal Vaccine : 65+ Years (1 - PCV) Pneumococcal Vaccine: 65+ Years (1 - PCV) [facility] Start: 07-02-2015 Pneumococcal Vaccine : 65+ Years (1 of 1 - PCV) Pneumococcal Vaccine: 65+ Years (1 of 1 - PCV) [facility] Start: 07-02-2015 PNEUMOCOCCAL: 65+ (1 - PCV) PNEUMOCOCCAL: 65+ (1 - PCV) [facility] Start: 07-02-2015 PNEUMOVAX AGE 65 AND OVER WITH 5YR LOOKBACK (#1) PNEUMOVAX AGE 65 AND OVER WITH 5YR LOOKBACK (#1) [facility] Start: 2010 RSV High Risk: (Elde rly (60+) or Population) (1 - Risk 60-74 years 1-dose series) RSV High Risk: (Elderly (60+) or Population) (1 - Risk 60-74 years 1-dose series) [facility] Start: 2010 RSV Vaccine (1 - 1-d ose 60+ series) RSV Vaccine (1 - 1-dose 60+ series) [facility] Start: 2000 Pneumococcal vaccination Pneum ococcal Vaccine (1 of 1 - PCV) [facility] Start: 2000 SHINGRIX VACCINE (1 of 2) SHINGRIX VACCINE (1 of 2) [facility] Start: 2000 Zoster Vaccines (1 of 2) Zoste r Vaccines (1 of 2) [facility] Start: 07-02-1995 COLOGUARD (FIT-DNA) COLOGUARD (FIT-D NA) [facility] Start: 07-02-1995 Colonoscopy COLONOSCOPY [facility] Start: 07-02-1995 COLORECTAL CANCER SCREENING COLORECTAL CANCER SCREENING [facility] Start: 07-02-[address] COLONOGRAPHY [facility] Start: 07-02-1995 DIABETES SCREEN DIABETES SCREEN [facility] Start: 07-02-1995 Diabetes Screening Diabetes Screenin g [facility] Start: 07-02-1995 FECAL OCCULT BLOOD FECAL OCCULT BLOO D [facility] Start: 07-02-1995 Screening for malign ant neoplasm of colon [facility] Start: 07-02-1995 SIGMOIDOSCOPY SIGMOIDOSCOPY [place] [facility] Start: 1985 Lipid panel Lipid Screening [facility] Start: 1985 LIPID SCREEN LIPID SCREEN [facility] Start: 1972 DTaP/Tdap/Td Vaccine s (1 - Tdap) DTaP/Tdap/Td Vaccines (1 - Tdap) [facility] Start: 1969 SHINGRIX VACCINE (1 of 2) SHINGRIX VACCINE (1 of 2) [facility] Start: 1969 Urine microalbumin profile [facility] Start: 1968 Anxiety Screening Anxiety Screening [facility] Start: 1968 Depression Screening Depression Scre ening [facility] Start: 1968 Diabetes mellitus screening Diabetes Screening [facility] Start: 1968 HEPATITIS C SCREENING HEPATITIS C [facility] Start: 1968 Hepatitis C screening Hepatitis C [facility] Start: 1962 Adult depression screening assessment DEPRESSION SCREENING [facility] Start: 1956 PNEUMOCOCCAL: 65+ (1 - PCV) PNEUMOCOCCAL: 65+ (1 - PCV) [facility] Start: 1950 ABDOMINAL AORTIC ANEURYSM SCREENING ABDOMINAL AORTIC ANEURYSM SCREENING [facility] Start: 1950 Abdominal aortic aneurysm screening Abdominal Aortic Aneurysm Screening [facility] Start: 1950 Lipid panel Lipid Panel [facility] Start: 1950 Medicare Annual Well ness (AWV) Medicare Annual Wellness (AWV) [facility] Start: 1950 Medicare Annual Well ness Visit Medicare Annual Wellness Visit (AWV) [facility] Start: 1950 Screening for malign ant neoplasm of colon [facility] ECG 12 Lead ECG 12 Lead ECG Routine High risk medication use 03/08/2024 9:00 AM EST [facility] Service Area Work Phone: [facility] Immunizations Immunization Date Immunization Notes Care Provider Fa [facility] 11-28-2021 Fluzone High-Dose Quadrivalent 0.7 ML Intramuscular Suspension Prefilled Syringe Kevin Brewer Work Phone: [facility] 250 DO Work Phone: 11-28-2021 influenza virus vaccine, unspecified formulation Yin HAWK [facility] 11-28-2021 influenza, high dose seasonal, preservative-free Parveen Santo MD Work Phone: [facility] Work Phone: 12-13-2020 Pfizer-BioNTech COVID-19 Vacc 30 MCG/0.3ML Intramuscular Suspension Kevin A Naderer Work Phone: [facility] 05-19-2020 Pfizer-BioNTech COVID-19 Vacc 30 MCG/0.3ML Intramuscular Suspension Kevin A Naderer Work Phone: [facility] 04-28-2020 Pfizer-BioNTech COVID-19 Vacc 30 MCG/0.3ML Intramuscular Suspension Kevin A Naderer Work Phone: [facility] 03-02-2020 SARS-CoV-2 (COVID-19 ) mRNA BNT-162b2 vax Abdulaziz DAWSON [facility] Comment on above: Result Comment: pt i s fully vaccinated and has received the booster but does not remember the dates 12-14-2019 influenza virus vaccine, unspecified formulation Yin HAWK [facility] 12-14-2019 influenza, injectabl e, quadrivalent, preservative free Kevin A Naderer Work Phone: [facility] 250 DO Work Phone: 12-01-2019 influenza virus vaccine, unspecified formulation Yin HAWK [facility] 12-01-2019 influenza, seasonal, injectable Kevin A Naderer Work Phone: [facility] 250 DO Work Phone: 02-09-2012 influenza virus vaccine, unspecified formulation Yin HAWK [facility] 02-09-2012 influenza, seasonal, injectable Kevin Brewer Work Phone: [facility] 250 DO Work Phone: Payers Date Payer Category Payer Self-pay [id number] 2020 Medicare supplementa l policy (as second payer) [employer] SENIOR SUPPLEMENT [id number] 2020 Private Health Insurance [employer] Sonia ETNA MEDICARE SUPPLEMENT [id number] 2020-Present [phone] [address] [address] [place] [address] Indemnity [id number] 2020 Private Health Insurance [id number] 2015 Medicare MEDICARE MEDICAR E A AND B [id number] 2015-Present [phone] [address] [address] [place] [address] Medicare [id number] 2015 Medicare [id number] 1959 Medicare [id number] [address] [facility] [id number] 1950 Unknown [id number] 2.16.840.1.755000.3.579.2 .356 1950 Unknown [id number] 2.16.840.1.175869.3.579.2 .356 1950 Unknown [id number] 2.16.840.1.819344.3.579.2 .356 1950 Unknown [id number] 2.16.840.1.258582.3.579.2 .593 1950 Unknown [id number] 2.16.840.1.418341.3.579.2 .593 1950 Unknown [id number] 2.16.840.1.767903.3.579.2 .593 1950 Unknown [id number] 2.16.840.1.655816.3.579.2 .593 1950 Unknown [id number] 2.16.840.1.702068.3.579.2 .727 1950 Unknown [id number] 2.16.840.1.398218.3.579.2 .727 1950 Unknown [id number] 2.16.840.1.895024.3.579.2 .727 1950 Unknown [id number] 2.16.840.1.427748.3.579.2 .1259 1950 Unknown [id number] 2.16.840.1.611346.3.579.2 .1259 1950 Unknown [id number] 2.16.840.1.997055.3.579.2 .1259 1950 Unknown [id number] 2.16.840.1.016515.3.579.2 .1259 1950 Unknown [id number] 2.16.840.1.020050.3.579.2 .1259 1951 Unknown [id number] 2.16.840.1.389221.3.579.2 .1258 1950 Unknown [id number] 2.16.840.1.407582.3.579.2 .1258 1950 Unknown [id number] 2.16.840.1.283824.3.579.2 .1258 1950 Unknown [id number] 2.16.840.1.630856.3.579.2 .1258 1950 Unknown [id number] 2.16.840.1.600646.3.579.2 .1258 1950 Unknown [id number] 2.16.840.1.506559.3.579.2 .1258 1950 Unknown [id number] 2.16.840.1.005892.3.579.2 .1258 1950 Unknown [id number] 2.16.840.1.003420.3.579.2 .1258 1950 Unknown [id number] 2.16.840.1.311386.3.579.2 .1258 1950 Unknown [id number] 2.16.840.1.191086.3.579.2 .1258 1950 Unknown [id number] 2.16.840.1.033442.3.579.2 .1258 1950 Unknown [id number] 2.16.840.1.883593.3.579.2 .1258 1950 Unknown [id number] 2.16.840.1.604254.3.579.2 .1258 1950 Unknown [id number] 2.16.840.1.195998.3.579.2 .1244 1950 Unknown [id number] 2.16.840.1.348521.3.579.2 .196 Unknown Unknown [facility] [id number] Unknown [id number] 2.16.840.1.698429.3.579.2 .531 Social History Date Type Detail Facility Start: 05-20-2021 End: 03-08-2024 Alcohol use Alcohol use [facility] Comment on above: 4 8 oz cups of coffe e/occasional decaf coffee; Quit in 1970s; Start: 04-03-2021 End: 03-08-2024 Tobacco smoking status NHIS Ex-smoker [facility] End: 04-03-1981 History of tobacco use Current smoker [facility] End: 04-03-1981 History of tobacco use Pipe Smoker [facility] End: 04-03-1981 History of tobacco use Cigar Smoker [facility] Start: 04-03-2021 End: 12-02-2023 Tobacco use and exposure Smokeless tobacco non-user [facility] Start: 05-20-2021 End: 03-08-2024 Alcohol intake Current drinker of alcohol (finding) [facility] Start: 04-03-2021 History SDOH Alcohol Comment 2-3 times/wk [facility] Start: 1950 Sex Assigned At Not on file [facility] Start: 03-10-2021 End: 03-08-2024 Exposure to SARS-CoV-2 (event) Not sure [facility] Start: 05-20-2021 End: 03-08-2024 Sex Assigned At Male [facility] Tobacco smoking status No Smokin g Status Entered [facility] Start: 03-21-2022 Tobacco smoking status Never s moked tobacco (finding) [facility] Start: 05-11-2023 Tobacco smoking status Never [facility] End: 03-02-1969 History of tobacco use Cigarette Smoker [facility] Work Phone: Start: 02-06-2023 Alcohol Comment [facility] Work Phone: Start: 1950 Sex Assigned At Male F [facility] [place] Do you belong to any clubs or organizations such as amish groups, unions, fraternal or athletic groups, or [...] 05-11-2023 Functional Status N/A [facility] 09-08-2022 Functional Status N/A [facility] 03-21-2022 Functional Status N/A [facility] 09-30-2021 Functional Status N/A [facility] Clinical Notes 06-11-2021 to 03-08-2024 Assessment & Plan Note - GENA Hill - 03/08/2024 12:48 PM ESTAssessment & Plan Note - GENA Hill - 03/08/2024 12:48 PM ESTPatient InstructionsPatient Instructions Note Date & Type Note Facility 03-08-2024 Evaluation + Plan note Associated Problem(s): Morbid obesity with BMI of 40.0-44.9, adult (Multi) Reviewed the merits of healthy lifestyle choices on overall cardiovascular health. [facility] Work Phone: 03-08-2024 Evaluation + Plan note [...] appropriate and potentially safer approach than ablation. [facility] Work Phone: 03-08-2024 Miscellaneous Notes Associated Problem(s): [...] ablation. Associated Problem(s): Paroxysmal SVT (supraventricular tachycardia) ([facility]) Initial diagnosis August 2019 Has remained quiescent [...] Compliant with meds documented in this encounter [facility] Work Phone: 03-08-2024 Evaluation + Plan note Associated Problem(s): Paroxysmal SVT (supraventricular tachycardia) ([facility]) Initial diagnosis August 2019 Has remained quiescent on propafenone since June 2021 EKG in office maintaining normal sinus rhythm with bifascicular block [facility] Work Phone: 03-08-2024 Evaluation + Plan note Associated Problem(s): Hypertension Optimal in office [facility] Work Phone: 03-08-2024 Evaluation + Plan note Associated Problem(s): HLD (hyperlipidemia) Low intensity statin Reports he is due for annual labs April 2024 [facility] Work Phone: 03-08-2024 Evaluation + Plan note [...] November 2019 MPI no ischemia, no infarct [facility] Work Phone: 03-08-2024 Evaluation + Plan note Associated Problem(s): High risk medication use Propafenone initiated June 2021 EKG in office maintaining normal sinus rhythm November 2019 MPI no ischemia, no infarct August 2019 TTE LVEF 55 to 60% [facility] Work Phone: 03-08-2024 Evaluation + Plan note Associated Problem(s): Obstructive sleep apnea syndrome Compliant with meds [facility] Work Phone: 03-08-2024 History of Present illness [...] orthopedics next month. 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 [...] heart rate greater than 200 bpm. Follow-up [facility] revealed SVT and was maintained on Cardizem [...] Optimal in office Paroxysmal SVT (supraventricular tachycardia) (CMS-HCC) Initial diagnosis [...] if new symptoms arise. Mary Tam MSN, JUNIOR NETWORK ENGINEER-TONGUE TRIMMER, PMHNP-[facility] [place], [place] Please excuse any errors in grammar or translation related to this dictation. Voice recognition software was utilized to prepare this document. 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: no need [...] low back questionnaire: 12/50 points, 24% impairment Assisted Goals: in 6 weeks Centralize symptoms to [...] they go well) documented in this encounter [facility] 01-14-2024 History of Present illness Narrative Time In: 1:05 pm Time Out: 2:00 pm Supervised Time: 55 min Total Time: 55 min Evaluation Time: 20 min Visit Number: Deniz Medicare Chief Complaint: M54.16 Lumbar radiculopathy M54.41: [...] 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 X 15 minutes of therapeutic exercises: flexion based, self innom rotation METs PT Assessment: Therapy Diagnosis: LBP, sciatica, pain decreased with manual therapy Functional Limitations: Oswestry low back questionnaire: 12/50 points, 24% impairment Assisted Goals: in 6 weeks Centralize symptoms to [...] 3:48 PM EST documented in this encounter [facility] 12-21-2023 History of Present illness Narrative [...] wo contrast documented in this encounter [facility] 10-28-2023 History of Present illness Narrative General [...] HISTORY: Past Medical History: Diagnosis Date Cancer [facility] HOSPITAL/HCC) Hypertension ([facility]) Social History Tobacco Use Smoking status: Former [...] Depression: Not at risk (04/07/2023) Re[facility] from [facility] PHQ-2 PHQ-2 score: 0 Physical Activity: [...] Sakina Nj DO documented in this encounter [facility] 05-11-2023 Hospital Discharge instructions Patient Education [...] treatment? Where to find more information [employer] [place] [employer]: www.cancer.org [place] [employer]: www.auanet.org Contact a health care [...] provider. Document Revised: 08/12/2021 Document Reviewed: 08/12/2021 [employer] Patient Education 2022 TopOPPS. Follow Up Care 09/08/2022 12:26:22 With:CARINE DELGADO, Yin Patel, URL Address: [facility] [address], [place] [phone] When: Unknown Comments:PSA in 6 mos and f/u in 1 yr w/ repeat PSA [facility] 04-07-2023 Note HNO ID: [id number] Author: Demond BUTLER MD Service: ? Author [...] ASSESSMENT/PLAN: Prostate adenocarcinoma, initial PSA 4.3, biopsy Richfield score 3 + 4 = 7 (grade group 2), clinical stage T2a, N0, M0, stage IIB [T1-T2, N0, M0, PSA <20, GG 2] (AJCC 8th ed.), s/p TRUS Random and MRI fusion biopsy. PSA remains undetectable. No postradiation related issues. Plan see patient back in one year for further postradiation follow-up. Signed by: Demond Butler MD cc: Kevin Brewer MD ([facility]) [address] [place] [address] Portions of the above note extracted and edited from previous visit as well as active information included in the EMR. [facility] 04-07-2023 Nurse Note AUA=12 documented in this encounter [facility] 04-07-2023 History of Present illness Narrative Radiation Oncology - Follow Up Note PATIENT NAME: Luis Luis PATIENT DIAGNOSIS: Prostate adenocarcinoma, initial PSA 4.3, biopsy Richfield score 3 + 4 = 7 (grade [...] ASSESSMENT/PLAN: Prostate adenocarcinoma, initial PSA 4.3, biopsy Richfield score 3 + 4 = 7 (grade group 2), clinical stage T2a, N0, M0, stage IIB [T1-T2, N0, M0, PSA <20, GG 2] (AJCC 8th ed.), s/p TRUS Random and MRI fusion biopsy. PSA remains undetectable. No postradiation related issues. Plan see patient back in one year for further postradiation follow-up. Signed by: Demond Butler MD cc: Kevin Brewer MD ([facility]) [address] [place] [address] Portions of the above note extracted and edited from previous visit as well as active information included in the EMR. documented in this encounter [facility] 02-10-2023 History of Present illness [...] in office today documented in this encounter [facility] Work Phone: 02-10-2023 Instructions Felix Caal MA [...] of your visit. documented in this encounter [facility] Work Phone: 09-30-2022 Note HNO ID: [id number] Author: Demond Butler MD Service: ? Author Type: Physician Type: Progress Notes Filed: 10/03/2022 8:14 AM Note Text: Radiation Oncology - Follow Up Note PATIENT NAME: Luis Luis PATIENT DIAGNOSIS: Prostate adenocarcinoma, initial PSA 4.3, biopsy Richfield score 3 + 4 = 7 (grade [...] MD cc: Kevin Brewer MD ([facility]) [address] [place] [address] Portions of the above note extracted and edited from previous visit as well as active information included in the EMR. [facility] 09-30-2022 History of Present illness Narrative Radiation Oncology - Follow Up Note PATIENT NAME: Luis Luis PATIENT DIAGNOSIS: Prostate adenocarcinoma, initial PSA 4.3, biopsy Richfield score 3 + 4 = 7 (grade [...] ASSESSMENT/PLAN: Prostate adenocarcinoma, initial PSA 4.3, biopsy Richfield score 3 + 4 = 7 (grade group 2), clinical stage T2a, N0, M0, stage IIB [T1-T2, N0, M0, PSA <20, GG 2] (AJCC 8th ed.), s/p TRUS Random and MRI fusion biopsy. PSA remains undetectable. No postradiation related issues. Plan see patient back in 6 months for further postradiation follow-up. Signed by: Demond Butler MD cc: Kevin Brewer MD ([facility]) [address] [place] [address] Portions of the above note extracted and edited from previous visit as well as active information included in the EMR. documented in this encounter [facility] 09-30-2022 Nurse Note AUA 14 Naida Jacobo RN documented in this encounter [facility] 09-08-2022 Hospital Discharge instructions Patient [...] urethra. Follow these instructions at home: Take mnqr-wjt-wgcwpdn and prescription medicines only as told by [...] provider. Document Revised: 09/04/2021 Document Reviewed: 09/04/2021 [employer] Patient Education 2022 [employer] Follow Up Care 03/21/2022 12:44:25 With:CARINE DELGADO, Yin Patel, URL Address: [facility] [address] [place] [phone] When:Within 8 Month(s) Comments:[facility] Marta 04-01-2022 History of Present illness Narrative [...] Yancy Oneill APRN.ANNA documented in this encounter [facility] 04-01-2022 History of Present illness Narrative Radiation Oncology - Follow Up Note PATIENT NAME: Luis Luis PATIENT DIAGNOSIS: Prostate adenocarcinoma, initial PSA 4.3, biopsy Richfield score 3 + 4 = 7 (grade [...] ASSESSMENT/PLAN: Prostate adenocarcinoma, initial PSA 4.3, biopsy Richfield score 3 + 4 = 7 (grade [...] MD cc: Kevin Brewer MD ([facility]) [address] [place] [address] Portions of the above note extracted and edited from previous visit as well as active information included in the EMR. documented in this encounter [facility] 04-01-2022 Nurse Note AUA 14 Naida Jacobo RN documented in this encounter [facility] 03-21-2022 Hospital Discharge instructions Patient [...] who: Are older than age 65. Are -[place]. Are obese. Have a family history of [...] cells. Follow these instructions at home: Take zjah-aws-nupwwdp and prescription medicines only as told by [...] 02/16/2006 Document Revised: 01/29/2018 Document Reviewed: 10/27/2016 [employer] Patient Education [employer]. Follow Up Care 09/30/2021 11:58:37 With:CARINE DELGADO, Yin Patel, URL Address: [address] [place] [address]- When: Unknown Comments:6 mos w/ PSA [facility] 02-06-2022 Miscellaneous Notes Patient has been rescheduled & notified of appointment. Monica Rodríguez Pt has PSA scheduled with Dr Hawk in March and would like to postpone his follow up visit with Dr Butler until after that is done. PSS- please call pt and reschedule. He will be awaiting your call. Naida Jacobo RN documented in this encounter [facility] 09-30-2021 Hospital Discharge instructions Patient [...] urethra. Follow these instructions at home: Take sazs-xfj-dwwqcts and prescription medicines only as told by [...] 02/16/2006 Document Revised: 01/11/2019 Document Reviewed: 03/23/2017 [employer] Patient Education 2020 TopOPPS. Follow Up Care 04/01/2021 13:09:22 With:CARINE DELGADO, Yin Patel, URL Address: [facility] [address], [place] [phone] When:Within 6 Month(s) Comments:w/ PSA [facility] 08-14-2021 Nurse Note AUA 18 Naida Jacobo RN documented in this encounter [facility] 08-14-2021 History of Present illness [...] ASSESSMENT/PLAN: Prostate adenocarcinoma, initial PSA 4.3, biopsy Richfield score 3 + 4 = 7 (grade [...] MD cc: Kevin Brewer MD ([facility]) [address] [place] [address] documented in this encounter [facility] 08-09-2021 Hospital Discharge instructions Patient [...] including vitamins, herbs, eye drops, creams, and cipt-hqr-amhwjwb medicines. Any problems you or family members [...] 07/27/2006 Document Revised: 01/29/2018 Document Reviewed: 02/25/2017 [employer] Patient Education 2020 [employer] Inc. Follow Up Care 07/04/2021 11:13:01 With:CARINE DELGADO, Yin Patel, URL Address: [facility] [address], [place] [phone] When: Unknown [facility] Miscellaneous Notes Ok to resched Luis called in stating he tested positive for COVID-19 on 08/03/21 and his symptoms started , 08/01/21. He has a scheduled 6wk post implant follow up on 08/08/21. He will call us later in the week to possibly reschedule his follow up. Kelly Guo LPN documented in this encounter [facility] 07-25-2021 History of Present illness Narrative Patient: Luis Luis Date:07/25/2021 [facility] Department of Radiation Oncology [facility] [...] M.D. 23:26 PM documented in this encounter [facility] 06-27-2021 History of Present illness Narrative Date: 06/27/21 Facility: [facility] Procedure: prostate transperineal brachytherapy implant Sources: [...] Butler MD (Signed electronically to expedite mailing) [facility] documented in this encounter [facility] 06-11-2021 History of Present illness [...] Demond Butler MD documented in this encounter [facility] 06-11-2021 History of Present illness Narrative LUIS LUIS [id number] 06/11/2021 [facility] Department of Radiation Oncology [facility] RADIATION ONCOLOGY SIMULATION NOTE DATE OF SIMULATION: 06/11/2021 MACHINE: [employer] Focus 500 Diagnosis: 185 (Prostate Gland) AREA:Prostate PATIENT POSITION: Supine CONTRAST: None PROTOCOL: None CONCURRENT THERAPY: None FIXATION DEVICE: UTS Stabilization device by [employer]. PROCEDURE: Patient was simulated in exaggerated dorsal lithotomy position. Serial images of the prostate were acquired using TRUS and reconstructed in 3D space. These images were imported into [employer] Prostate planning system where a plan was generated. ASSESSMENT/PLAN: Patient tolerated simulation procedure well. Electronically Signed Chavez Butler M.D. / LAURA 25:05 PM documented in this encounter [facility] Evaluation + Plan note Future Appointments Appointment Date:08/05/2021 08:45:00 AM Scheduled Provider:Yin HAWK MD Location:[facility] Appointment Type:URO Office Visit Appointment Date:09/30/2021 10:30:00 AM Scheduled Provider:Yin HAWK MD [facility] Office Visit Future Scheduled TestsPT & PTT 03/05/21BUN 03/05/21Creatinine 03/05/21Electrolyte Panel 03/05/21CBC w/ Auto Diff 03/05/21XR Chest 2 Views 03/05/21 [facility] Evaluation + Plan note Future Appointments Appointment Date:09/30/2021 10:30:00 AM Scheduled Provider:Yin HAWK MD [facility] Type:URO Office Visit Diagnostic Tests PendingPSA Total 08/09/21 Future Scheduled TestsPT & PTT 03/05/21BUN 03/05/21Creatinine 03/05/21Electrolyte Panel 03/05/21CBC w/ Auto Diff 03/05/21XR Chest 2 Views 03/05/21 [facility] Evaluation + Plan note Future Appointments Appointment Date:03/21/2022 11:00:00 AM Scheduled Provider:Yin HAWK MD Location:[facility] Appointment Type:URO Office Visit Diagnostic Tests PendingPSA Total 09/30/21 Future Scheduled TestsPT & PTT 03/05/21BUN 03/05/21Creatinine 03/05/21Electrolyte Panel 03/05/21CBC w/ Auto Diff 03/05/21XR Chest 2 Views 03/05/21 [facility] Evaluation + Plan note Future Appointments Appointment Date:09/08/2022 10:15:00 AM Scheduled Provider:Yin HAWK MD Location:[facility] Appointment Type:URO Office Visit Diagnostic Tests PendingPSA Total 06/30/22 [facility] Evaluation + Plan note Future Appointments Appointment Date:05/11/2023 09:45:00 AM Scheduled Provider:Yin HAWK MD Location:[facility] Appointment Type:URO Office Visit Diagnostic Tests PendingPSA Total 09/08/22 [facility] [employer] Evaluation + Plan note Future Appointments Appointment Date:05/13/2024 09:45:00 AM Scheduled Provider:Yin HAWK MD Location:[facility] Appointment Type:URO Office Visit Diagnostic Tests PendingPSA Total 05/11/23 [facility] Evaluation note Diagnosis Malignant neoplasm of prostate (HCC)- Primary Malignant neoplasm of prostate [facility] Diagnosis Malignant neoplasm of prostate (HCC)- Primary Malignant neoplasm of prostate [facility] Diagnosis Malignant neoplasm of prostate (HCC)- Primary Malignant neoplasm of prostate [facility] Diagnosis Prostate cancer (HCC) Malignant neoplasm of prostate [facility] Diagnosis Malignant neoplasm of prostate (HCC)- Primary Malignant neoplasm of prostate [facility] Diagnosis Malignant neoplasm of prostate (HCC)- Primary Malignant neoplasm of prostate [facility] Diagnosis Paroxysmal SVT (supraventricular tachycardia)- Primary Primary hypertension Unspecified essential hypertension Mixed hyperlipidemia Morbid obesity with BMI of 40.0-44.9, adult (CMS/HCC) Bifascicular block Other bilateral bundle branch block documented in this encounter [facility] Work Phone: Evaluation note* Diagnosis Malignant neoplasm of prostate (HCC)- Primary Malignant neoplasm of prostate [facility]No assessment [facility] Work Phone: Evaluation note* Diagnosis Morbid obesity due to excess calories (CMS/HCC)- Primary RENAE on CPAP Hypoxia Hypoxemia Snoring Other dyspnea and respiratory abnormality Daytime hypersomnolence documented in this encounter [facility]* Diagnosis Essential hypertension, benign [...] specified cardiac dysrhythmias documented in this encounter [facility]* Diagnosis Essential hypertension, benign [...] with right-sided sciatica documented in this encounter [facility]* Diagnosis Essential hypertension, benign (CMS/HCC)- [...] with right-sided sciatica documented in this encounter [facility]* Diagnosis Essential hypertension, benign [...] with right-sided sciatica documented in this encounter [facility] note* Diagnosis Essential hypertension, benign [...] with right-sided sciatica documented in this encounter [facility] HealthcareEvaluation note* Diagnosis Essential hypertension, benign (CMS/HCC)- [...] with right-sided sciatica documented in this encounter [facility] HealthcareEvaluation note* Diagnosis Encounter for screening colonoscopy- Primary documented in this encounter [facility] Healthcare[facility] note* Diagnosis Essential hypertension, benign [...] lower extremity pain documented in this encounter [facility] Healthcare[facility]* Diagnosis Essential hypertension, benign [...] with right-sided sciatica documented in this encounter [facility] HealthcareEvaluation note* Diagnosis Malignant neoplasm of prostate (Multi)- Primary Malignant neoplasm of prostate Paroxysmal SVT (supraventricular tachycardia) (CMS-HCC) Body mass index (BMI) 40.0-44.9, adult (Multi) High risk medication use Mixed hyperlipidemia Primary hypertension Unspecified essential hypertension Bifascicular block Other bilateral bundle branch block Morbid obesity with BMI of 40.0-44.9, adult (Multi) Obstructive sleep apnea syndrome Obstructive sleep apnea (adult) (pediatric) documented in this encounter [facility] Work Phone: History of Present illness NarrativePatient [...] as well as blood pressure discussed and r eviewed and treatment is adequate and appropriate. We discussed the merits of diet lifestyle modification exercise and weight loss.[facility] [employer] Work Phone: History of Present illness Narrative* [...] merits of diet exercise and weight loss. [facility] [employer] Work Phone: Hospital course Narrative No data available for this section [facility] Hospital Discharge instructions No data available for this section [facility] Progress note No data available for this section [facility] reason for visit Narrative* Rehabilitation - Outpatient (Routine) - Authorized Specialty Diagnoses / Procedures Referred By Myrtle t Referred To Contact Physical Therapy Diagnoses Lumbar radiculopathy Chronic right-sided low back pain with right-sided sciatica Procedures [place] OFFICE/OUTPATIENT NEW HIGH MDM 60 MINUTES Kevin Brewer MD [address] [place] [address] Phone: tel: fax: Franchesca Gray, PT [address] [place] [address] Phone: tel: fax: Referral ID Status Reason Start Date Expiration Date Visits Requested Visits Authorized [id number] Authorized Specialty Services Required 01/06/2024 07/04/2024 20 20 [facility] N[facility]* Rehabilitation - Outpatient (Routine) - Authorized Specialty Diagnoses / Procedures Referred By Contac t Referred To Contact Physical Therapy Diagnoses Lumbar radiculopathy Chronic right-sided low back pain with right-sided sciatica Procedures [place] OFFICE/OUTPATIENT NEW HIGH [facility] 60 MINUTES Kevin Brewer MD [address] [place] [address] Phone: tel: fax: Franchesca Gray, PT [address] [place] [address] Phone: tel: fax: Referral ID Status Reason Start Date Expiration Date Visits Requested Visits Authorized [id number] Authorized Specialty Services Required 01/06/2024 07/04/2024 20 30 [facility] for visit Narrative* Rehabilitation - Outpatient (Routine) - Authorized Specialty Diagnoses / Procedures Referred By Contac t Referred To Contact Physical Therapy Diagnoses Lumbar radiculopathy Chronic right-sided low back pain with right-sided sciatica Procedures [place] OFFICE/OUTPATIENT NEW HIGH [facility] 60 MINUTES Kevin Brewer MD [address] [place] [address] Phone: tel: fax: Franchesca Gray, PT [address] [place] [address] Phone: tel: fax: Referral ID Status Reason Start Date Expiration Date Visits Requested Visits Authorized [id number] Authorized Specialty Services Required 01/06/2024 03/01/2024 20 30 [facility] Healthcare Summary Purpose Family History No Family History [...] seen for a 9 month follow-up of.LUIS CALEBJIGAR is being seen for a 9 month [...] Procedures ECG 12 Lead Parveen Santo MD [address] [place] [address] 2, [place] [phone] Referral ID Status Reason Start Date Expiration Date V isits Requested Visits Authorized [id number] Pending Review 02/10/2023 02/10/2024 1 1 Specialty Diagnoses / Procedures Referred By Myrtle romeo Referred To Contact Cardiology Diagnoses Paroxysmal SVT (supraventricular tachycardia) Procedures Follow Up In Cardiology Parveen Santo MD [address] [place] [address] 2, [place] [phone] Parveen Santo MD [address] [place] [address] 2, [place] [id number] Referral ID Status Reason Start Date Expiration Date V isits Requested Visits Authorized [id number] Authorized 02/10/2023 02/10/2024 1 1 Additional Source Comments (unrecognized sect ion and content) No Status Records FoundNo Status Records FoundNo Status Records FoundNo Status Records FoundNo Status Records FoundNo Status Records FoundNo Status Records FoundNo Status Records FoundNo Status Records FoundNo Status Records Found INFORMATION SOURCE (unrecogn ized section and content) DATE CREATED AUTHOR 12/03/2019 [facility] DATE CREATED AUTHOR AUTHOR'S ORGANIZ ATION 02/12/2022 [facility] DATE CREATED AUTHOR AUTHOR'S ORGANIZ ATION 02/12/2022 [employer] DATE CREATED AUTHOR AUTHOR'S ORGANIZ ATION 07/10/2022 [facility] DATE CREATED AUTHOR AUTHOR'S ORGANIZ ATION 04/17/2023 [facility] DATE CREATED AUTHOR AUTHOR'S ORGANIZ ATION 05/13/2023 [facility] DATE CREATED AUTHOR AUTHOR'S ORGANIZ ATION 11/22/2023 [facility] DATE CREATED AUTHOR AUTHOR'S ORGANIZ ATION 02/23/2024 [facility] DATE CREATED AUTHOR AUTHOR'S ORGANIZ ATION 03/14/2024 [facility] DATE CREATED AUTHOR AUTHOR'S ORGANIZ ATION 03/23/2024 [facility] Source Comments (unrecognize d section and content) In the event this informatio n is protected by the Federal Confidentiality of Alcohol and Drug Abuse Patient Records regulations: The Federal rules restrict any use of the information to criminally investigate or prosecute any alcohol or drug abuse patient.[facility] the event this information is protected by the Federal Confidentiality of Alcohol and Drug Abuse Patient Records regulations: The Federal rules restrict any use of the information to criminally investigate or prosecute any alcohol or drug abuse patient.[facility] the event this information is protected by the Federal Confidentiality of Alcohol and Drug Abuse Patient Records regulations: The Federal rules restrict any use of the information to criminally investigate or prosecute any alcohol or drug abuse patient.[facility] the event this information is protected by the Federal Confidentiality of Alcohol and Drug Abuse Patient Records regulations: The Federal rules restrict any use of the information to criminally investigate or prosecute any alcohol or drug abuse patient.[facility] the event this information is protected by the Federal Confidentiality of Alcohol and Drug Abuse Patient Records regulations: The Federal rules restrict any use of the information to criminally investigate or prosecute any alcohol or drug abuse patient.[facility] the event this information is protected by the Federal Confidentiality of Alcohol and Drug Abuse Patient Records regulations: The Federal rules restrict any use of the information to criminally investigate or prosecute any alcohol or drug abuse patient.[facility] the event this information is protected by the Federal Confidentiality of Alcohol and Drug Abuse Patient Records regulations: The Federal rules restrict any use of the information to criminally investigate or prosecute any alcohol or drug abuse patient.[facility] the event this information is protected by the Federal Confidentiality of Alcohol and Drug Abuse Patient Records regulations: The Federal rules restrict any use of the information to criminally investigate or prosecute any alcohol or drug abuse patient.[facility] the event this information is protected by the Federal Confidentiality of Alcohol and Drug Abuse Patient Records regulations: The Federal rules restrict any use of the information to criminally investigate or prosecute any alcohol or drug abuse patient.[facility] the event this information is protected by the Federal Confidentiality of Alcohol and Drug Abuse Patient Records regulations: The Federal rules restrict any use of the information to criminally investigate or prosecute any alcohol or drug abuse patient.[facility] the event this information is protected by the Federal Confidentiality of Alcohol and Drug Abuse Patient Records regulations: The Federal rules restrict any use of the information to criminally investigate or prosecute any alcohol or drug abuse patient.[facility] Hospital[facility] the event this information is protected by the [facility] Confidentiality of Alcohol and Drug Abuse Patient Records regulations: The Federal rules restrict any use of the information to criminally investigate or prosecute any alcohol or drug abuse patient.[facility] Hospital[facility] the event this information is protected by the Federal Confidentiality of Alcohol and Drug Abuse Patient Records regulations: The Federal rules restrict any use of the information to criminally investigate or prosecute any alcohol or drug abuse patient.[facility] Care Teams (unrecognized sec tion and content) Jewel Gauger Relationship Specialty Start Date End Date Kevin Brewer [address] [place] [address] PCP - General Family Practice 03/22/21 Yin Hawk MD [address] [place] [address] Referring Urology 03/22/21 Jewel Gauger Relationship Specialty Start Date End Date Kevin Brewer [address] [place] [address] PCP - General Family Practice 03/22/21 Yin Hawk MD [address] [place] [address] Referring Urology 03/22/21 Jewel Gauger Relationship Specialty Start Date End Date Kevin Brewer [address] [place] [address] PCP - General Family Practice 03/22/21 Yin Hawk MD [address] [place] [address] Referring Urology 03/22/21 Jewel Gauger Relationship Specialty Start Date End Date Kevin Brewer [address] [place] [address] PCP - General Family Practice 03/22/21 Yin Hawk MD [address] [place] [address] Referring Urology 03/22/21 Jewel Gauger Relationship Specialty Start Date End Date Kevin Brewer [address] [place] [address] PCP - General Family Practice 03/22/21 Yin Hawk MD [address] [place] [address] Referring Urology 03/22/21 Jewel Gauger Relationship Specialty Start Date End Date Kevin Brewer [address] [place] [address] PCP - General Family Medicine 03/22/21 Yin Hawk MD [address] [place] [address] Referring Urology 03/22/21 Jewel Gauger Relationship Specialty Start Date End Date Kevin Brewer [address] [place] [address] PCP - General Family Medicine 03/22/21 Yin Hawk MD [address] [place] [address] Referring Urology 03/22/21 Jewel Gauger Relationship Specialty Start Date End Date Kevin Brewer [address] [place] [address] PCP - General Family Medicine 03/22/21 Yin Hawk MD [address] [place] [address] Referring Urology 03/22/21 Jewel Gauger Relationship Specialty Start Date End Date Kevin Brewer [address] [place] [address] PCP - General Family Medicine 03/22/21 Yin Hawk MD [address] [place] [address] Referring Urology 03/22/21 Jewel Gauger Relationship Specialty Start Date End Date Kevin Brewer MD [address] [place] [address] PCP - General Family Medicine 02/05/23 Jewel Gauger Relationship Specialty Start Date End Date Kevin Brewer [address] [place] [address] PCP - General Family Medicine 03/22/21 Yin Hawk MD [address] [place] [address] Referring Urology 03/22/21 Team Status: Inactive Member Role Status Dates Franchesca DO Bren Attending Provider Active Star t: November 17, 2023 End: November 17, 2023 Jewel Gauger Relationship Specialty Start Date End Date Kevin Brewer [address] [place] [address] PCP - General Family Medicine 03/22/21 Yin Hawk MD [address] [place] [address] Referring Urology 03/22/21 Jewel Gauger Relationship Specialty Start Date End Date Kevin Brewer [address] [place], [place] [id number] PCP - General Family Medicine 03/22/21 Yin Hawk MD [address] [place] [address] Referring Urology 03/22/21 Jewel Gauger Relationship Specialty Start Date End Date Kevin Brewer MD [address] [place] [id number] PCP - General Family Medicine 06/29/23 Jewel Gauger Relationship Specialty Start Date End Date Kevin Brewer MD [address] [place] [address] PCP - General Family Medicine 06/29/23 Jewel Gauger Relationship Specialty Start Date End Date Kevin Brewer MD [address] [place] [address] PCP - General Family Medicine 06/29/23 Jewel Gauger Relationship Specialty Start Date End Date Kevin Brewer MD [address] [place] [address] PCP - General Family Medicine 06/29/23 Jewel Gauger Relationship Specialty Start Date End Date Keivn Brewer MD [address] [place] [address] PCP - General Family Medicine 06/29/23 Jewel Gauger Relationship Specialty Start Date End Date Kevin Brewer MD [address] [place] [address] PCP - General Family Medicine 06/29/23 Jewel Gauger Relationship Specialty Start Date End Date Kevin Brewer MD [address] [place] [address] PCP - General Family Medicine 06/29/23 Jewel Gauger Relationship Specialty Start Date End Date Kevin Brewer MD [address] [place] [address] PCP - General Family Medicine 06/29/23 Jewel Gauger Relationship Specialty Start Date End Date Kevin Brewer MD [address] [place] [address] PCP - General Family Medicine 06/29/23 Jewel Gauger Relationship Specialty Start Date End Date Kevin Brewer MD [address] [place] [address] PCP - General Family Medicine 06/29/23 Jewel Gauger Relationship Specialty Start Date End Date Kevin Brewer MD [address] [place] [address] PCP - General Family Medicine 06/29/23 Jewel Gauger Relationship Specialty Start Date End Date Kevin Brewer MD [address] [place] [address] PCP - General Family Medicine 06/29/23 Jewel Gauger Relationship Specialty Start Date End Date Kevin Brewer MD [address] [place] [address] PCP - General Family Medicine 06/29/23 Jewel Gauger Relationship Specialty Start Date End Date Kevin Brewer MD [address] [place] [address] PCP - General Family Medicine 06/29/23 Jewel Gauger Relationship Specialty Start Date End Date Kevin Brewer MD [address] [place] [address] PCP - General Family Medicine 06/29/23 Jewel Gauger Relationship Specialty Start Date End Date Kevin Brewer MD [address] [place] [address] PCP - General Family Medicine 06/29/23 Jewel Gauger Relationship Specialty Start Date End Date Kevin Brewer MD [address] [place] [address] PCP - General Family Medicine 06/29/23 Jewel Gauger Relationship Specialty Start Date End Date Kevin Brewer MD [address] [place] [address] PCP - General Family Medicine 06/29/23 Jewel Gauger Relationship Specialty Start Date End Date Kevin Brewer MD [address] [place] [address] PCP - General Family Medicine 06/29/23 Jewel Gauger Relationship Specialty Start Date End Date Kevin Brewer MD [address] [place] [address] PCP - General Family Medicine 06/29/23 Jewel Gauger Relationship Specialty Start Date End Date Kevin Brewer MD [address] [place] [address] PCP - General Family Medicine 06/29/23 Jewel Gauger Relationship Specialty Start Date End Date Kevin Brewer MD [address] [place], [place] [id number] PCP - General Family Medicine 02/05/23 Reason for Visit (unrecogniz ed section and content) Reason Comments Annual Exam Specialty Diagnoses / Procedures Referred By Myrtle romeo Referred To Contact Cardiology Diagnoses Paroxysmal SVT (supraventricular tachycardia) ([facility]) Procedures Follow Up In Cardiology Parveen Santo MD McGuinn, William P, MD Retired From Practice Referral ID Status Reason Start Date Expiration Date V isits Requested Visits Authorized [id number] Authorized 02/10/2023 02/10/2024 1 1 Specialty Diagnoses / Procedures Referred By Myrtle romeo Referred To Contact Radiation Oncology / RADIATION ONCOLOGY Diagnoses Malignant neoplasm of prostate Seed Implant at [facility] Procedures SEED IMPLANT Demond Butler MD [address] [place] [address] [place] [address] Demond Butler MD [address] [place] [address] [place] [address] Referral ID Status Reason Start Date Expiration Date V isits Requested Visits Authorized [id number] Authorized 06/27/2021 03/01/2022 99 99 Reason Comments FYI-No Action Needed Covid19 Concern Reason Comments Prostate Cancer Reason Comments Future Appointment Specialty Diagnoses / Procedures Referred By Contac t Referred To Contact Diagnoses Paroxysmal SVT (supraventricular tachycardia) Procedures ECG 12 Lead Parveen Santo MD [address] [place] [address] Referral ID Status Reason Start Date Expiration Date V isits Requested Visits Authorized [id number] Pending Review 02/10/2023 02/10/2024 1 1 Specialty Diagnoses / Procedures Referred By Contac t Referred To Contact Radiation Oncology / RADIATION ONCOLOGY Diagnoses Malignant neoplasm of prostate SIM/JADA/Pelvis Procedures SIMULATION [place] IMRT 25 fractions Demond Butler MD [address] [place] [address] [place] [address] Demond Butler MD [address] [place] [address] [place] [address] Referral ID Status Reason Start Date Expiration Date Visits Re quested Visits Authorized [id number] Closed 04/09/2021 03/01/2022 99 99 Reason Comments [...] BE BASED ON THE PRIMARY CLINICAL RECORDS. [employer] provides no warranty or guarantee of the accuracy or completeness of information in this document.
--- NOTE | 2024-03-23 11:38 | PM.CN ---
Consult Note: HPI Data of Consult Patient: known to practice within the last 3 years Requesting Physician: Shaina Calhoun NP Primary Care Provider: Kevin Olivo MD Consult Narrative Reason for consult: f/u Narrative: Herbert Luis a pleasant 73 year old male presents for evaluation and management of chronic right hip pain. Pt has found mild benefit to chiropractor, PT/HEP greater than 6 weeks, tylenol, NSAIDs, and baclofen. recently underwent right hip injection with moderate relief ongoing. continues to have mild to moderate right lateral hip pain, pain 4/10 increasing to 6/10 with rolling over in bed, lying on right side, standing and walking. denies numbness tingling to RLE. cc:: CC: Shaina Calhoun NP Review of Systems ROS Status of ROS 10 or more systems reviewed and unremarkable except as noted in history and below [facility] Medical History (Updated 03/23/24 @ 11:40 by Shaina Calhoun NP) Prostate cancer ?C61 - Malignant neoplasm of prostate (ICD-10) Sleep apnea ?G47.30 - Sleep apnea, unspecified (ICD-10) Atrial fibrillation ?I48.91 - Unspecified atrial fibrillation (ICD-10) Hyperlipidemia ?E78.5 - Hyperlipidemia, unspecified (ICD-10) Edema ?R60.9 - Edema, unspecified (ICD-10) Broken arm ?S42.309A - Unspecified fracture of shaft of humerus, unspecified arm, initial encounter for closed fracture (ICD-10) Hypertension ?I10 - Essential (primary) hypertension (ICD-10) Cancer ?C80.1 - Malignant (primary) neoplasm, unspecified (ICD-10) Surgical History History of surgery on arm ?Z98.890 - Other specified postprocedural states (ICD-10) Hx of colonoscopy ?Z98.890 - Other specified postprocedural states (ICD-10) History of prostate surgery ?Z98.890 - Other specified postprocedural states (ICD-10) Family History Other Family history of cancer Family history of hypertension H/O cardiac radiofrequency ablation Hearing loss Heart disease Social History Within the past year, how often did you have a drink containing alcohol: 2-3 times a week Smoking status: Former smoker Second hand tobacco smoke exposure: No Non-prescribed substance use: denies use 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 Highest level of school completed/degree received: Bachelor's degree Meds Home Medications and Allergies Home Medications ?Medication ?Instructions ?Recorded ?Confirmed ?Type atorvastatin 10 mg tablet 10 mg PO QPM 08/17/23 03/14/24 History diltiazem HCl 180 mg 180 mg PO DAILY 08/17/23 03/14/24 History capsule,extended release 24 hr furosemide 40 mg tablet 40 mg PO DAILY PRN edema 08/17/23 03/14/24 History potassium chloride 20 mEq 20 meq PO DAILY PRN hypokalemia 08/17/23 03/14/24 History tablet,extended release (K-Tab) propafenone 150 mg tablet 150 mg PO TID 08/17/23 03/14/24 History tamsulosin 0.4 mg capsule 0.4 mg PO DAILY 08/17/23 03/14/24 History baclofen 10 mg tablet 10 mg PO DAILY 03/08/24 03/14/24 History meloxicam 15 mg tablet 15 mg PO DAILY 03/08/24 03/14/24 History multivitamin 1 tab PO DAILY 03/08/24 03/14/24 History Allergies Allergy/AdvReac Type Severity Reaction Status Date / Time No Known Drug Allergies Allergy Unverified 11/11/23 12:14 Exam Constitutional Documenting provider has reviewed patient's vital signs: yes Common normals: no apparent distress, oriented x3, healthy appearing, alert and well nourished General appearance: cooperative [facility] Common normals: normocephalic, hearing grossly normal bilaterally and moist oral mucous membranes Head and scalp: normocephalic Eye Common normals: PERRL Pupil: PERRL Neck & C-Spine Common normals: full ROM General: normal visual inspection Chest Common normals: inspection of chest normal Respiratory Common normals: normal respiratory effort, no retractions and no use of accessory muscles Back & Pelvis Lumbar spine/lower back: no pain with ROM, no lumbar spinal tenderness, no paraspinal muscle tenderness and no paraspinal muscle spasm Sacroiliac joints: SI joints normal Other: negative bilateral dixie(patricks), gaenslens, thigh thrust, compression test Extremity Right lower extremity: hip joint Other: mild pain with internal log roll mild tenderness over right GTB and IT band Neuro Common normals: oriented x3, CN's II-XII intact bilaterally, moves all extremities, no focal motor deficits, no sensory deficits noted and deep tendon reflexes 2+ bilaterally Sensorium/orientation: alert Motor exam: strength 5/5 throughout and no movement abnormalities noted Psych Common normals: mental status grossly normal, thought process normal, cooperative, affect normal, speech normal and activity/motor behavior normal Speech: normal speech Thought process: normal thought process Results Additional Findings Additional findings: If on a controlled substance or opioids, I have checked an [place] report on this patient and there are no aberrancies noted in the prescribing history.??If on a controlled substance or opioid a drug screen was completed and reviewed within the last year, and if there has not been a drug screen completed we ordered one today to monitor higher risk, state monitored pain medication use. As part of providing excellent, safe, comprehensive care, the following was completed at our patient's visit: 1. A medication reconciliation and review to ensure accurate knowledge of current/active medications, including asking our patients to inform us about any [id number] medications or herbal remedies/nutritional supplements/alternative remedies. 2. A review to specifically ensure our patients have had annual screening for screening for depression, screening for tobacco use, and screening for unhealthy alcohol use. For concerning screenings had a discussion with the patient, provided patient education, and recommended follow-up with primary care provider when appropriate. If patient noted with a risk of falling, they received education on strength, gait, and balance training to prevent future risk of falling. Portions of this note may have been carried over from the previous visit and updated as appropriate. Please note this office utilizes paper charting in addition to the electronic medical record. A list of current medications, vitals, and PMH is available there as the clinical staff outside of myself do not have access to [employer] charting during the clinic day operations. As part of providing quality comprehensive care the current medications, vitals, and PMH were reviewed in the paper chart. Assessment and Plan Assessment and Plan (1) Greater trochanteric bursitis of right hip: (2) Osteoarthritis of right hip: Plan right GTB injection with Dr Nelson continue HEP as tolerated continue current medications, finds benefit without side effects f/u after injection
== END 2024-03-23 11:12 | disposition home or self-care (01) ==
LOC: PM 11:11
PROVIDERS: PCP Family Medicine; Visit Provider Nurse Practitioner
DX: M70.61 Trochanteric bursitis, right hip (principal); M16.11 Unilateral primary osteoarthritis, right hip
CPT/HCPCS: G0463

== ENCOUNTER 2024-03-23 11:48 | Outpatient (OUT) | payer MEDICARE, SELFPAY ==
--- OUTSIDE RECORDS SUMMARY | 2024-03-23 12:06 | XMS_ITS | CCD ---
Author Organization [facility] Care Team Providers Care Stringed Instrument Tuner Name Role Phone Kevin Brewer Unavailable Unavailable Unavailable Unavailable Unavailable Kevin Brewer Primary Care Provider Yin Hawk MD Unavailable [phone] KEVIN BREWER Primary Care Physician [phone] Unavailable Unavailable Rodriguezuinbrad II, Parveen Wilder Referring [...] Care Rachaelvai Kevin Mclain Primary Care Provider [phone] Yin Hawk MD Unavailable DR KEVIN BREWER [...] Care Unavailable Demond BUTLER Referring Unavailable KEVIN RBEWER Primary Care Unavailable Demond BUTLER Referring Unavailable Demond BUTLER Attending Unavailable Yin HAWK Attending Unavailable Yin HAWK Attending Unavailable Yin HAWK Attending Unavailable DO Franchesca Nj Attending Provider Franchesca Nj Attending Unavailable Franchesca Nj Admitting Unavailable Kevin Brewer Primary Care Provider Carine DELGADO, Yin Patel Unavailable [phone] Kevin Brewer MD Primary Care Provider [phone] KEVIN BREWER Attending Unavailable FRANCHESCA NJ Attending [...] (1 source) tamsulosin Drug Allergy 05-31-2021 [facility] Medications Current Medications Medication Drug Class(es) Dates Sig (Normalized) Sig (Original) acetaminophen 325 mg oral tablet (16 sources) Start: 03-07-2021 acetaminophen (TYLENOL) 325 mg tablet Take by mouth. 03/07/2021 Active Start: 03-07-2021 take 2 tablets by [facility] at bedtime as needed for pain [...] Start: 09-28-2019 take 1 capsule by [facility] once daily in the morning dilTIAZem [...] Date: 08/09/21 Status: Ordered polyethylene glycol 3350 56531 mg powder for oral solution (2 sources) [...] mg tablet Indications: Paroxysmal SVT (supraventricular tachycardia) ([facility]) Take 1 tablet (150 mg) by mouth [...] on above: Take 1 capsule by [facility] twice daily. 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 Ruddy 11-17-2023 L Specimen: [id number] Received: 11/18/23 Status: LEILANI Javier Num: [id number] Spec Type: Surgical Subm Dr: Franchesca Nj DO Tissues: A Colon Biopsy (SIGMOID POLYP) Procedures: HE/2, Gross/Micro L4 Age/ Patient Sex Location Account Attending Physician Luis Luis/M LABELL [id number] Franchesca Nj DO SPEC NUM: [id number] RECD: 11/18/23 STATUS: LEILANI JAVIER NUM: [id number] LULÚ: 11/17/[address] [facility] [address]: Franchesca Nj DO ENTERED: 11/18/[address] [facility] DR: Solange Soria SPEC TYPE: Surgical DEPT: CECILIO RODRIGUEZ ENTERED BY: [id number] RECV BY: [id number] ORDERED: HE/2, Gross/Micro L4 ORDERED: HE/2, Gross/Micro [...] entirely submitted in cassette A1. CPT Codes 38130 Specimen: [id number] Received: 11/18/23 Status: LEILANI Aguileraneena Num: [id number] Spec Type: Surgical Subm Dr: Franchesca Nj DO Tissues: A Colon Biopsy (SIGMOID POLYP) Procedures: HE/2, Gross/Micro L4 Patient: Luis Luis [id number] (Continued) Signed (signature on file) Brynn Watson MD 11/19/231926 Normal [facility] Ambulatory Visit Summaryon 0 05-11-2023 [...] DELGADO, Yin Patel Where: [facility] Patient Educationon 05-11-19 Patient Education Oncology [...] Where to find more information ? The [place] [employer]: www.cancer.org ? [place] [employer]: www.auanet.org Contact a health care [...] adds flu (more content not included)... Normal [facility] Urology Office/Clinic Noteon 05-11-2023 Urology Office/Clinic Note [...] [facility] [address], [place] [address]- [phone] Additional Instructions: PSA in 6 mos and [...] Prostate ca (more content not included)... Normal [facility] Comment on above: Result Comment: Elec tronically Signed By: CARINE DELGADO, Yin Patel\.br\Date and Time Signed: 05/11/23 10:34 EDT\.br\Electronically Co-Signed By: Kimberly Nash\.br\Date and Time Co-Signed: 05/11/23 10:32 EDT Nahun 04-07-2023 CNOV Office Visit (RADTSA ) -------- LUIS LUIS ([id number]) 1950 M Date Time Provider Department 04/07/23 [...] Demond Butler MD cc: Kevin Brewer MD ([facility]) [address] [place] [address] Portions of the above note extracted and edited from previous visit as well as active information included in the EMR. Kelly Guo LPN 04/15/2023 3:32 PM Signed AUA=12 Referring Provider: Demond BUTLER [[id number]] Allergies As of Date: 04/07/2023 (No Known Allergies) Date Reviewed: 04/07/2023 Reviewed by: Kelly Guo LPN - Fully Assessed Reason for Visit: Prostate Cancer [590] Primary Visit Diagnosis:Malignant neoplasm of prostate (HCC) [C61] Order(s):PSA (OUTSIDE) [2857981] Order #: [id number] PSA/PROSTSPECAG DIAG [SQPSA] Order #: [id number] FUTURE Prescriptions as of 04/15/2023 - naproxen [...] for Encounter Date Provider Department Center 04/07/2023 [id number] BUTLER JANNA RAVI Encounter Status:Closed by Demond BUTLER on 04/15/23 Normal [facility] Lab Reportson 04-01-2023 Lab Reports [id number] F Normal [facility] ECG 12 Leadon 02-10-2023 Normal sinus rhythm Right bundle branch block left anterior fascicular block Bifascicular block Cannot exclude age-indeterminate inferior infarct QTc 443 ms [facility] Work Phone: CNOVon 09-30-2022 CNOV Office Visit (RADTSA ) -------- BILLLUIS Rushing ([id number]) 1950 M Date Time Provider Department 09/30/22 [...] Demond Butler MD cc: Kevin Brewer MD ([facility]) [address] [facility] [place] [address] Portions of the above note extracted and edited from previous visit as well as active information included in the EMR. Referring Provider: Demond BUTLER [[id number]] Allergies As of Date: 09/30/2022 (No Known Allergies) Date Reviewed: 09/30/2022 Reviewed by: Naida Jacobo RN - Fully Assessed Reason for Visit: Prostate Cancer [590] Primary Visit Diagnosis:Malignant neoplasm of prostate (HCC) [C61] Order(s):PSA (OUTSIDE) [1375811] Order #: [id number] PSA/PROSTSPECAG DIAG [SQPSA] Order #: [id number] FUTURE Prescriptions as of 10/03/2022 - naproxen [...] for Encounter Date Provider Department Center 09/30/2022 [id number] BUTLER [facility] Encounter Status:Closed by Demond BUTLER on 10/03/22 Normal [facility] 09-09-2022 Lab Reports [id number]: 127 Normal [facility] Ambulatory Visit Summaryon 0 09-08-2022 Ambulatory Visit Summary LUIS LUIS :1950 Visit Date:09/08/2022 Ambulatory Visit Instructions Your Diagnosis Prostate cancer BPH with urinary obstruction Family history of prostate cancer Tests Performed Urnls Dip Stick Auto w/o Microscopy POC [id number] Your Care Team Attending Physician - CARINE [...] DELGADO, Yin Patel Where: [facility] Patient Educationon 09-09-19 Patient Education Urology [...] Follow these instructions at home: ? Take efqw-suf-aqogsdl and prescription medicines only as told by [...] the medicine (more content not included)... Normal [facility] Urology Office/Clinic Noteon 09-08-2022 Urology Office/Clinic Note [...] [facility] [address], [place] [address]- [phone] Additional Instructions: PSA Patient Education Benign Prostatic [...] lifetime) To (more content not included)... Normal [facility] Comment on above: Result Comment: Elec tronically Signed By: CARINE DELGADO, Yin Patel\.br\Date and Time Signed: 09/08/22 12:22 EDT\.br\Electronically Co-Signed By: Kimberly Nash\.br\Date and Time Co-Signed: 09/08/22 12:20 EDT CBC AUTO DIFFon 07-02-2022 BASO # 0.1 103/ul Normal 0.0-0.1 [facility] Comment on above: Performed By: #### C BC #### [facility] [address] [place] [address] Dr. Shama Naylor Basophils/100 WBC (Bld) 0.8 % Normal 0.2-2.0 [facility] Comment on above: Performed By: #### C BC #### [facility] [address] [place] [address] Dr. Shama Naylor EO # 0.1 103/ul Normal 0.0-0.7 [facility] Comment on above: Performed By: #### C BC #### [facility] [address] [place] [address] Dr. Shama Naylor Eosinophils/100 WBC (Bld) 2.0 % Normal 0.9-7.0 [facility] Comment on above: Performed By: #### C BC #### [facility] [address] [place] [address] Dr. Shama Naylor Erythrocyte distribution width (RBC) [Ratio] 13.6 % Normal 11.0-15.0 [facility] Comment on above: Performed By: #### C BC #### [facility] [address] [place] [address] Dr. Shama Naylor Hematocrit (Bld) [Volume fraction] 40.0 % Critically low 42.0-54.0 [facility] Comment on above: Performed By: #### C BC #### [facility] [address] [place] [address] Dr. Shama Naylor Hemoglobin (Bld) [Mass/Vol] 13.6 g/dL Critically low 14.0-18.0 [facility] Comment on above: Performed By: #### C BC #### [facility] [address] [place] [address] Dr. Shama Naylor IG # 0.02 10e3/ul Normal 0.00-0.03 [facility] Comment on above: Performed By: #### C BC #### [facility] [address] [place] [address] Dr. Shama Naylor IG % 0.3 % Normal 0.0-0.5 [facility] Comment on above: Performed By: #### C BC #### [facility] [address] [place] [address] Dr. Shama Naylor LYMPH # 1.6 103/ul Normal 1.2-3.8 [facility] Comment on above: Performed By: #### C BC #### [facility] [address] [place] [address] Dr. Shama Naylor Lymphocytes/100 WBC (Bld) 26.0 % Normal 20.5-60.0 [facility] Comment on above: Performed By: #### C BC #### [facility] [address] [place] [address] Dr. Shama Naylor MANUAL DIFF REQ NO Normal [facility] Comment on above: Performed By: #### C BC #### [facility] [address] [place] [address] Dr. Shama Naylor MCH (RBC) [Entitic mass] 30.8 pg Normal 25.9-34.0 [facility] Comment on above: Performed By: #### C BC #### [facility] [address] [place] [address] Dr. Shama Naylor MCHC (RBC) [Mass/Vol] 34.0 g/dL Normal 29.9-35.2 [facility] Comment on above: Performed By: #### C BC #### [facility] [address] [place] [address] Dr. Shama Naylor MCV (RBC) [Entitic vol] 90.7 fL Normal 80.0-94.0 [facility] Comment on above: Performed By: #### C BC #### [facility] [address] [place] [address] Dr. Shama Naylor MONO # 0.4 103/ul Normal 0.3-0.8 [facility] Comment on above: Performed By: #### C BC #### [facility] [address] [place] [address] Dr. Shama Naylor Monocytes/100 WBC (Bld) 6.1 % Normal 1.7-12.0 [facility] Comment on above: Performed By: #### C BC #### [facility] [address] [place] [address] Dr. Shama Naylor NEUT # 3.9 103/ul Normal 1.4-6.5 [facility] Comment on above: Performed By: #### C BC #### [facility] [address] [place] [address] Dr. Shama Naylor Neutrophils/100 WBC (Bld) 64.8 % Normal 43.0-75.0 [facility] Comment on above: Performed By: #### C BC #### [facility] [address] [place] [address] Dr. Shama Naylor Platelet mean volume (Bld) [Entitic vol] 10.3 fL Normal 9.5-13.5 [facility] Comment on above: Performed By: #### C BC #### [facility] [address] [place] [address] Dr. Shama Naylor PLT 165 103/ul Normal 150-450 [facility] Comment on above: Performed By: #### C BC #### [facility] [address] [place] [address] Dr. Shama Naylor RBC 4.41 106/ul Critically low 4.70-6.10 [facility] Comment on above: Performed By: #### C BC #### [facility] [address] [address] [address] Shama Naylor WBC 6.0 103/ul Normal 4.0-11.0 [facility] Comment on above: Performed By: #### C BC #### [facility] [address] [address] [address] Shama Naylor LIPID PROFILEon 07-02-2022 CHOL-HDL RATIO NORM SEE BELOW Normal [facility] Comment on above: Result Comment: 3.3 - 4.4 LOW RISK 4.4 - 7.1 AVERAGE RISK 7.1 - 11.0 MODERATE RISK >11.0 HIGH RISK Performed By: #### L IPID, BMP, LIVER #### [facility] [address] [address] [address] Shama Naylor Cholesterol [Mass/Vol] 157 mg/dL Normal <=200 [facility] Comment on above: Performed By: #### L IPID, BMP, LIVER #### [facility] [address] [address] [address] Shama Naylor Cholesterol in HDL [Mass/Vol] 58 mg/dL Normal 40-60 [facility] Comment on above: Performed By: #### L IPID, BMP, LIVER #### [facility] [address] [address] [address] Shama Naylor Cholesterol in LDL [Mass/Vol] 81.8 mg/dL Normal [facility] Comment on above: Performed By: #### L IPID, BMP, LIVER #### [facility] [address] [address] [address] Shama Naylor Cholesterol.total /Cholesterol in HDL [Mass ratio] 2.7 {ratio} Normal [facility] Comment on above: Performed By: #### L IPID, BMP, LIVER #### [facility] [address] [address] [address] Shama Naylor HDL NORMAL > or = 60 mg/dl - LO W CARDIOVASCULAR RISK <40 mg/dl - HIGH CARDIOVASCULAR RISK Normal [facility] Comment on above: Performed By: #### L IPID, BMP, LIVER #### [facility] [address] [address] [address] Shama Naylor LDL CALC NORMAL SEE BELOW Normal [facility] Comment on above: Result Comment: <100 mg/dl OPTIMAL 100 - 129 mg/dl NEAR OR ABOVE OPTIMAL 130 - 159 mg/dl BORDERLINE HIGH 160 - 189 mg/dl HIGH >190 mg/dl VERY HIGH Performed By: #### L IPID, BMP, LIVER #### [facility] [address] [address] [address] Shama Naylor Triglyceride [Mass/Vol] 86 mg/dL Normal <=150 [facility] Comment on above: Performed By: #### L IPID, BMP, LIVER #### [facility] [address] [address] [address] Shama Naylor VLDL CALC 17.2 mg/dL Normal [facility] Comment on above: Performed By: #### L IPID, BMP, LIVER #### [facility] [address] [address] [address] Shama Naylor LIVER PROFILEon 07-02-2022 Albumin [Mass/Vol] 3.3 g/dL Critically low 3.4-5.0 [facility] Comment on above: Performed By: #### L IPID, BMP, LIVER #### [facility] [address] [address] [address] Shama Naylor Albumin/Globulin [Mass ratio] 1.0 {ratio} Normal [facility] Comment on above: Performed By: #### L IPID, BMP, LIVER #### [facility] [address] [address] [address] Shama Naylor ALP [Catalytic activity/Vol] 61 U/L Normal 46-116 [facility] Comment on above: Performed By: #### L IPID, BMP, LIVER #### [facility] [address] [address] [address] Shama Naylor ALT [Catalytic activity/Vol] 38 U/L Normal 16-63 [facility] Comment on above: Performed By: #### L IPID, BMP, LIVER #### [facility] [address] [place] [address] Dr. Shama Naylor AST [Catalytic activity/Vol] 14 U/L Critically low 15-37 [facility] Comment on above: Performed By: #### L IPID, BMP, LIVER #### [facility] [address] [place] [address] Dr. Shama Naylor BILI, CONJUGATED 0.1 mg/dL Normal 0.0-0.2 [facility] Comment on above: Performed By: #### L IPID, BMP, LIVER #### [facility] [address] [place] [address] Dr. Shama Naylor Bilirubin [Mass/Vol] 0.4 mg/dL Normal 0.2-1.0 [facility] Comment on above: Performed By: #### L IPID, BMP, LIVER #### [facility] [address] [place] [address] Dr. Shama Naylor Globulin (S) [Mass/Vol] 3.3 g/dL Normal [facility] Comment on above: Performed By: #### L IPID, BMP, LIVER #### [facility] [address] [place] [address] Dr. Shama Naylor Protein [Mass/Vol] 6.6 g/dL Normal 6.4-8.2 [facility] Comment on above: Performed By: #### L IPID, BMP, LIVER #### [facility] [address] [place] [address] Dr. Shama Naylor PROF CHEM 8 (BAS METB)on Anion gap [Moles/Vol] 9.6 mmol/L Normal [facility] Comment on above: Performed By: #### L IPID, BMP, LIVER #### [facility] [address] [place] [address] Dr. Shama Naylor Calcium [Mass/Vol] 8.8 mg/dL Normal 8.5-10.1 [facility] Comment on above: Performed By: #### L IPID, BMP, LIVER #### [facility] [address] [place] [address] Dr. Shama Naylor Chloride [Moles/Vol] 107 mmol/L Normal 98-107 [facility] Comment on above: Performed By: #### L IPID, BMP, LIVER #### [facility] [address] [place] [address] Dr. Shama Naylor CO2 [Moles/Vol] 28.3 mmol/L Normal 21.0-32.0 [facility] Comment on above: Performed By: #### L IPID, BMP, LIVER #### [facility] [address] [address] [address] Shama Naylor Creatinine [Mass/Vol] 1.03 mg/dL Normal 0.70-1.30 [facility] Comment on above: Performed By: #### L IPID, BMP, LIVER #### [facility] [address] [place] [address] Dr. Shama Naylor EGFR-AF DOMINICAN >60 Normal >=60 [facility] Comment on above: Performed By: #### L IPID, BMP, LIVER #### [facility] [address] [place] [address] Dr. Shama Naylor EGFR-NON AF DOMINICAN >60 Normal >=60 [facility] Comment on above: Performed By: #### L IPID, BMP, LIVER #### [facility] [address] [place] [address] Dr. Shama Naylor Glucose [Mass/Vol] 103 mg/dL Normal 74-106 [facility] Comment on above: Performed By: #### L IPID, BMP, LIVER #### [facility] [address] [place] [address] Dr. Shama Naylor Potassium [Moles/Vol] 3.9 mmol/L Normal 3.5-5.1 [facility] Comment on above: Performed By: #### L IPID, BMP, LIVER #### [facility] [address] [place] [address] Dr. Shama Naylor Sodium [Moles/Vol] 141 mmol/L Normal 136-145 [facility] Comment on above: Performed By: #### L IPID, BMP, LIVER #### [facility] [address] [place] [address] Dr. Shama Naylor Urea nitrogen [Mass/Vol] 14.0 mg/dL Normal 7.0-18.0 [facility] Comment on above: Performed By: #### L IPID, BMP, LIVER #### [facility] [address] [place], [place] [address] Dr. Shama Naylor Urea nitrogen/Creatini ne [Mass ratio] 13.6 mg/mg Normal [facility] Comment on above: Performed By: #### L IPID, BMP, LIVER #### [facility] [address] [place], [place] [address] Dr. Shama Naylor Office Visit (Cardiology)on 02-11-2022 Follow-up visit Diagnoses/Problems Assessed Paroxysmal SVT (supraventricular tachycardia) (427.0) (I47.1) Hypertension (401.9) (I10) HLD (hyperlipidemia) (272.4) (E78.5) Morbid obesity with BMI of 40.0-44.9, adult (278.01,V85.41) (E66.01,Z68.41) Former smoker (V15.82) (Z87.891) Quit in 1970s Orders Morbid obesity with BMI of 40.0-44.9, adult Healthy Weight Tips; Status:Complete; Done: 94Mky3295 Some eating tips that can help you lose weight.; Status:Complete; Done: 16Ejc1323 Paroxysmal SVT (supraventricular tachycardia) IO EKG Electrocardiogram- 12 Lead; Status:Complete; Done: 74Ivh5266 SocHx: Former smoker Tobacco Use Screening; Status:Complete; Done: 25Wiz7587 Patient Instructions Please bring all medicines, vitamins, [...] negative for complaint. Vitals Vital Signs Recorded: 73Uuh0840 11:05AM Heart Rate73, Apical Ltpidsgw956, LUE, Sitting Jxgxlnuwd94, LUE, Sitting Height6 ft 2 in Yuybkc783 lb BMI Xgqxxjupoa84.57 kg/m2 BSA Calculated2.64 Tobacco Useb) No PHQ-2 [...] Tobacco Screening.on Adult depression screening assessment No [facility] [employer] 250 DO Work Phone: Fall risk assessment a) No falls within the last year [facility] OrderWithMe DO Work Phone: Tobacco use status [facility] b) No [facility] [employer]Seriously 250 DO Work Phone: Falls Risk Screeningon 08-12 Fall risk assessment a) No falls within the last year [facility] [employer] 250 DO Work Phone: Office Visit (Cardiology)on [...] Weight Tips; Status:Complete - Retrospective Authorization; Done: 34Uuz8294 SocHx: Former smoker Tobacco Use Screening; Status:Complete; Done: 13Kij4772 Unlinked Stop: Aspirin 81 MG Oral Tablet [...] negative for complaint. Vitals Vital Signs Recorded: 28Usc4347 01:46PM Heart Rate72, R Radial Ukcaosab719, RUE, Sitting Knezxqunw36, RUE, Sitting Height6 ft 2 in Thhmun525 lb BMI Jdiivpeqfo20.67 kg/m2 BSA Calculated2.61 Tobacco Useb) No Fall [...] Feb 15 2021 5:53PM EST (Author) Normal [facility] Tobacco Screening.on Fall risk assessment a) No falls within the last year [facility] 250 DO Work Phone: Tobacco use status [facility] b) No [facility] 250 DO Work Phone: [facility] CARDIAC STRESS/REST INJE CTIONon 11-29-2019 [facility] CARDIAC STRESS/REST INJECTION Patient Name: LUIS LUIS STUDY: MYOCARDIAL PERFUSION STRESS TEST WITH LEXISCAN Performing facility: [facility], [address] [place] [address], [address], [place] [address] [facility] Provider: Mary Tam RN, DIAPHRAGM BUILDER PCP: Dr. Julianna Brewer Supervising provider: Sunday Rai DO, [facility] INDICATION: Chest Pain; HISTORY: Gender: M; Age: 69 y/o ; Height: 187.96 cm; Weight: 170.5185062 kg. High Cholesterol; HTN; Palpitations; Chest Pain; SOB; Quit smoking 40 years ago. COMPARISON: No comparison. ACCESSION NUMBER(S): [id number]; [id number]; [id number] ORDERING CLINICIAN: MARY TAM TECHNIQUE: TWO DAY [...] Electronically signed by: JAMIL JARRELL MD Normal [facility] Vital Signs Date Time Vital Sign Value Performing Clinician Facility 03-08-2024 08:56-0500 Body height 188 cm Mary AVERY Work Phone: [facility] 03-08-2024 08:56-0500 Body mass index (BMI) [Ratio] 41.09 kg/m2 Mary AVERY Work Phone: [facility] 03-08-2024 08:56-0500 Body weight 145.15 kg Mary AVERY Work Phone: [facility] 03-08-2024 08:56-0500 Diastolic blood pressure 80 mm[Hg] Mary Tam ROTARY DRYER OPERATOR-DIAPHRAGM BUILDER Work Phone: [facility] 03-08-2024 08:56-0500 Heart rate 68 /min Mary Tam ROTARY DRYER OPERATOR-DIAPHRAGM BUILDER Work Phone: [facility] 03-08-2024 08:56-0500 Systolic blood pressure 136 mm[Hg] Mary Tam ROTARY DRYER OPERATOR-DIAPHRAGM BUILDER Work Phone: [facility] 02-17-2024 13:36-0500 Body height 188 cm Kevin Brewer MD Work Phone: [facility] 02-17-2024 13:36-0500 Body mass index (BMI) [Ratio] 40.83 kg/m2 Kevin Breewr MD Work Phone: [facility] 02-17-2024 13:36-0500 Body temperature 97.11 [degF] Kevin Brewer MD Work Phone: [facility] 02-17-2024 13:36-0500 Body weight 144.24 kg Kevin Brewer MD Work Phone: [facility] 02-17-2024 13:36-0500 Diastolic blood pressure 72 mm[Hg] Kevin Brewer MD Work Phone: [facility] 02-17-2024 13:36-0500 Heart rate 72 /min Kevin Brewer MD Work Phone: [facility] 02-17-2024 13:36-0500 Respiratory rate 18 /min Kevin Brewer MD Work Phone: [facility] 02-17-2024 13:36-0500 SaO2% (BldA) [Mass fraction] 95 % Kevin Brewer MD Work Phone: [facility] 02-17-2024 13:36-0500 Systolic blood pressure 144 mm[Hg] Kevin Brewer MD Work Phone: [facility] 12-21-2023 08:54-0400 Body height 188 cm Kevin Brewer MD Work Phone: [facility] 12-21-2023 08:54-0400 Body mass index (BMI) [Ratio] 40.19 kg/m2 Kevin Brewer MD Work Phone: [facility] 12-21-2023 08:54-0400 Body temperature 96.6 [degF] Kevin Brewer MD Work Phone: [facility] 12-21-2023 08:54-0400 Body weight 141.98 kg Kevin Brewer MD Work Phone: [facility] 12-21-2023 08:54-0400 Diastolic blood pressure 84 mm[Hg] Kevin Brewer MD Work Phone: [facility] 12-21-2023 08:54-0400 Heart rate 87 /min Kevin Brewer MD Work Phone: [facility] 12-21-2023 08:54-0400 Respiratory rate 20 /min Kevin Brewer MD Work Phone: [facility] 12-21-2023 08:54-0400 SaO2% (BldA) [Mass fraction] 94 % Kevin Brewer MD Work Phone: [facility] 12-21-2023 08:54-0400 Systolic blood pressure 150 mm[Hg] Kevin Brewer MD Work Phone: [facility] 12-02-2023 13:42-0400 Body height 188 cm Naida Hobson EDGE BLACKER Work Phone: [facility] 12-02-2023 13:42-0400 Body mass index (BMI) [Ratio] 40.06 kg/m2 Naida Hobson EDGE BLACKER Work Phone: [facility] 12-02-2023 13:42-0400 Body weight 141.52 kg Naida Hobson EDGE BLACKER Work Phone: [facility] 12-02-2023 13:42-0400 Diastolic blood pressure 92 mm[Hg] Naida Hobson EDGE BLACKER Work Phone: [facility] [employer] 12-02-2023 13:42-0400 Heart rate 75 /min Naida Batistar EDGE BLACKER Work Phone: [facility] 12-02-2023 13:42-0400 Systolic blood pressure 148 mm[Hg] Naida Padillamor EDGE BLACKER Work Phone: [facility] 10-28-2023 10:12-0400 Body height 188 cm Franchesca Nj DO Work Phone: [facility] 10-28-2023 10:12-0400 Body mass index (BMI) [Ratio] 41.6 kg/m2 Franchesca Nj DO Work Phone: [facility] 10-28-2023 10:12-0400 Body weight 146.97 kg Franchesca Nj DO Work Phone: [facility] 10-28-2023 10:12-0400 Diastolic blood pressure 80 mm[Hg] Franchesca Nj DO Work Phone: [facility] 10-28-2023 10:12-0400 Heart rate 76 /min Franchesca Nj DO Work Phone: [facility] 10-28-2023 10:12-0400 Respiratory rate 20 /min Franchesca Nj DO Work Phone: [facility] 10-28-2023 10:12-0400 SaO2% (BldA) [Mass fraction] 94 % Franchesca Nj DO Work Phone: [facility] 10-28-2023 10:12-0400 Systolic blood pressure 142 mm[Hg] Franchesca Nj DO Work Phone: [facility] 04-07-2023 13:06-0500 Body temperature 97.9 [degF] SARAVANAN Butler MD Work Phone: [facility] 04-07-2023 13:06-0500 Body weight 149.2 kg SARAVANAN Butler MD Work Phone: [facility] 04-07-2023 13:06-0500 Diastolic blood pressure 83 mm[Hg] SARAVANAN Butler MD Work Phone: [facility] 04-07-2023 13:06-0500 Heart rate 80 /min SARAVANAN Butler MD Work Phone: [facility] 04-07-2023 13:06-0500 Respiratory rate 16 /min SARAVANAN Butler MD Work Phone: [facility] 04-07-2023 13:06-0500 SaO2% (BldA) [Mass fraction] 96 % SARAVANAN Butler MD Work Phone: [facility] 04-07-2023 13:06-0500 Systolic blood pressure 139 mm[Hg] SARAVANAN Butler MD Work Phone: [facility] 02-10-2023 11:10-0500 Body height 188 cm Parveen Santo MD Work Phone: [facility] 02-10-2023 11:10-0500 Body mass index (BMI) [Ratio] 41.6 kg/m2 Parveen Santo MD Work Phone: [facility] 02-10-2023 11:10-0500 Body weight 146.97 kg Parveen Santo MD Work Phone: [facility] 02-10-2023 11:10-0500 Diastolic blood pressure 84 mm[Hg] Parveen Santo MD Work Phone: [facility] 02-10-2023 11:10-0500 Heart rate 67 /min Parveen Santo MD Work Phone: [facility] 02-10-2023 11:10-0500 Systolic blood pressure 132 mm[Hg] Parveen Santo MD Work Phone: [facility] 09-30-2022 13:55-0400 Body temperature 96.69 [degF] SARAVANAN Butler MD Work Phone: [facility] 09-30-2022 13:55-0400 Body weight 144.97 kg SARAVANAN Butler MD Work Phone: [facility] 09-30-2022 13:55-0400 Diastolic blood pressure 85 mm[Hg] SARAVANAN Butler MD Work Phone: [facility] 09-30-2022 13:55-0400 Heart rate 92 /min SARAVANAN Butler MD Work Phone: [facility] 09-30-2022 13:55-0400 Respiratory rate 18 /min SARAVANAN Butler MD Work Phone: [facility] 09-30-2022 13:55-0400 SaO2% (BldA) [Mass fraction] 94 % SARAVANAN Butler MD Work Phone: [facility] 09-30-2022 13:55-0400 Systolic blood pressure 143 mm[Hg] SARAVANAN Butler MD Work Phone: [facility] 09-08-2022 10:50-0400 Blood Pressure Location Yin HAWK [facility] 09-08-2022 10:50-0400 Diastolic blood pressure 73 mm[Hg] Yin HAWK [facility] 09-08-2022 10:50-0400 Heart rate 72 /min Yin HAWK [facility] 09-08-2022 10:50-0400 Respiratory rate 16 /min Yin HAWK [facility] 09-08-2022 10:50-0400 Systolic blood pressure 132 mm[Hg] Yin HAWK [facility] 04-01-2022 14:41-0500 Body temperature 97.2 [degF] SARAVANAN Butler MD Work Phone: [facility] 04-01-2022 14:41-0500 Body weight 142.79 kg SARAVANAN Butler MD Work Phone: [facility] 04-01-2022 14:41-0500 Diastolic blood pressure 90 mm[Hg] SARAVANAN Butler MD Work Phone: [facility] 04-01-2022 14:41-0500 Heart rate 82 /min SARAVANAN Butler MD Work Phone: [facility] 04-01-2022 14:41-0500 Respiratory rate 18 /min SARAVANAN Butler MD Work Phone: [facility] 04-01-2022 14:41-0500 SaO2% (BldA) [Mass fraction] 98 % SARAVANAN Butler MD Work Phone: [facility] 04-01-2022 14:41-0500 Systolic blood pressure 159 mm[Hg] SARAVANAN Butler MD Work Phone: [facility] 03-21-2022 11:25-0500 Blood Pressure Location Yin HAWK [facility] 03-21-2022 11:25-0500 Diastolic blood pressure 80 mm[Hg] Yin HAWK [facility] 03-21-2022 11:25-0500 Heart rate 76 /min Yin HAKW [facility] 03-21-2022 11:25-0500 Respiratory rate 16 /min Yin HAWK [facility] 03-21-2022 11:25-0500 Systolic blood pressure 138 mm[Hg] Yin HAWK [facility] 02-11-2022 11:05-0500 Body height 187.96 cm Kevin Brewer Work Phone: [facility] DO Work Phone: 02-11-2022 11:05-0500 Body mass index (BMI) [Ratio] 40.57 kg/m2 Kevin Scott Naderer Work Phone: [facility] [facility] DO Work Phone: 02-11-2022 11:05-0500 Body surface area Derived from formula 2.64 m2 Kevin Scott Naderer Work Phone: [facility] [facility] DO Work Phone: 02-11-2022 11:05-0500 Body weight 143.34 kg Kevin Scott Naderer Work Phone: [facility] [facility] DO Work Phone: 02-11-2022 11:05-0500 Diastolic blood pressure 78 mm[Hg] Kevin Scott Naderer Work Phone: [facility] DO Work Phone: 02-11-2022 11:05-0500 Heart rate 73 /min Kevin Scott Naderer Work Phone: [facility] [facility] DO Work Phone: 02-11-2022 11:05-0500 Systolic blood pressure 132 mm[Hg] Kevin Lovelaceerer Work Phone: [facility] [facility] DO Work Phone: 09-30-2021 10:54-0400 Blood Pressure Location Yin HAWK [facility] 09-30-2021 10:54-0400 Diastolic blood pressure 84 mm[Hg] Yin HAWK [facility] 09-30-2021 10:54-0400 Heart rate 75 /min Yin HAWK [facility] 09-30-2021 10:54-0400 Respiratory rate 16 /min Yinlucy HAWK [facility] 09-30-2021 10:54-0400 Systolic blood pressure 136 mm[Hg] Yin HAWK [facility] 08-14-2021 09:47-0400 Body temperature 96.69 [degF] SARAVANAN Butler MD Work Phone: [facility] 08-14-2021 09:47-0400 Body weight 141.98 kg SARAVANAN Butler MD Work Phone: [facility] 08-14-2021 09:47-0400 Diastolic blood pressure 82 mm[Hg] SARAVANAN Butler MD Work Phone: [facility] 08-14-2021 09:47-0400 Heart rate 82 /min SARAVANAN Butler MD Work Phone: [facility] 08-14-2021 09:47-0400 Respiratory rate 20 /min SARAVANAN Butler MD Work Phone: [facility] 08-14-2021 09:47-0400 SaO2% (BldA) [Mass fraction] 94 % SARAVANAN Butler MD Work Phone: [facility] 08-14-2021 09:47-0400 Systolic blood pressure 131 mm[Hg] SARAVANAN Butler MD Work Phone: [facility] 08-12-2021 10:15-0400 Body height 187.96 cm Kevin Brewer Work Phone: [facility] [facility] DO Work Phone: 08-12-2021 10:15-0400 Body mass index (BMI) [Ratio] 39.93 kg/m2 Kevin Brewer Work Phone: [facility] DO Work Phone: 08-12-2021 10:15-0400 Body surface area Derived from formula 2.62 m2 Kevin Scott Naderer Work Phone: [facility] [facility] DO Work Phone: 08-12-2021 10:15-0400 Body weight 141.07 kg Kevin Scott Naderer Work Phone: [facility] [facility] DO Work Phone: 08-12-2021 10:15-0400 Diastolic blood pressure 80 mm[Hg] Kevin Scott Naderer Work Phone: [facility] [facility] DO Work Phone: 08-12-2021 10:15-0400 Heart rate 69 /min Kevin Lovelaceerer Work Phone: [facility] [facility] DO Work Phone: 08-12-2021 10:15-0400 Systolic blood pressure 130 mm[Hg] Kevin Lovelaceerer Work Phone: [facility] DO Work Phone: 08-09-2021 09:42-0400 Blood Pressure Location Yin HAWK [facility] 08-09-2021 09:42-0400 Diastolic blood pressure 80 mm[Hg] Yin HAWK [facility] 08-09-2021 09:42-0400 Heart rate 75 /min Yin HAWK [facility] 08-09-2021 09:42-0400 Respiratory rate 16 /min [facility]in HAWK [facility] 08-09-2021 09:42-0400 Systolic blood pressure 134 mm[Hg] Yin HAWK [facility] 02-15-2021 13:46-0500 Body height 187.96 cm Kevin Scott Naderer Work Phone: [facility] [facility] DO Work Phone: 02-15-2021 13:46-0500 Body mass index (BMI) [Ratio] 39.67 kg/m2 Kevin Scott Naderer Work Phone: [facility] DO Work Phone: 02-15-2021 13:46-0500 Body surface area Derived from formula 2.61 m2 Kevin Scott Naderer Work Phone: [facility] [facility] DO Work Phone: 02-15-2021 13:46-0500 Body weight 140.16 kg Kevin Scott Naderer Work Phone: [facility] DO Work Phone: 02-15-2021 13:46-0500 Diastolic blood pressure 80 mm[Hg] Kevin Scott Naderer Work Phone: [facility] [facility] DO Work Phone: 02-15-2021 13:46-0500 Heart rate 72 /min Kevin Scott Naderer Work Phone: [facility] [facility] DO Work Phone: 02-15-2021 13:46-0500 Systolic blood pressure 118 mm[Hg] Kevin Scott Naderer Work Phone: [facility] [facility] DO Work Phone: Encounters Encounter Date Encounter Type Care Provider Facility Start: 05-13-2024 ambulatory Yin Amanda Cain ty:UCHE Marta Start: 03-14-2024 End: 03-14-2024 ambulatory Shantelle Ornelas MD Facility: [place] Start: 03-08-2024 End: 03-08-2024 Office outpatient visit 25 minutes Mary Presley [place] ROTARY DRYER OPERATOR-DIAPHRAGM BUILDER Work Phone: [facility] Comment on above: Malignant neoplasm o f prostate (Multi) (Primary Dx); Paroxysmal SVT (supraventricular tachycardia) ([facility]-HCC); Body mass index (BMI) 40.0-44.9, adult (Multi); High risk medication use; Mixed hyperlipidemia; Primary hypertension; Bifascicular block; Morbid obesity with BMI of 40.0-44.9, adult (Multi); Obstructive sleep apnea syndrome Start: 03-08-2024 End: 03-08-2024 ambulatory [facility] Start: 02-22-2024 End: 02-22-2024 ambulatory Dayna Pulido RETARDER OPERATOR Work Phone: [facility] Comment [...] Start: 02-17-2024 End: 02-17-2024 ambulatory Dayna Pulido RETARDER OPERATOR Work Phone: [facility] Comment on above: Lumbar radiculopathy (Primary Dx); Chronic right-sided low back pain with right-sided sciatica Start: 02-15-2024 End: 02-15-2024 Bamboo flowsheet Dayna Pulido RETARDER OPERATOR Work Phone: [facility] Start: 02-15-2024 End: 02-15-2024 Bamboo moi Pulido RETARDER OPERATOR Work Phone: [facility] Start: 02-15-2024 End: 02-15-2024 ambulatory Dayna Pulido RETARDER OPERATOR Work Phone: [facility] Comment on above: Lumbar radiculopathy (Primary Dx); Chronic right-sided low back pain with right-sided sciatica Start: 02-10-2024 End: 02-10-2024 Bamboo moi Pulido RETARDER OPERATOR Work Phone: [facility] Start: 02-10-2024 End: 02-10-2024 Bamboo moi Pulido RETARDER OPERATOR Work Phone: [facility] Start: 02-10-2024 End: 02-10-2024 ambulatory Dayna Pulido RETARDER OPERATOR Work Phone: [facility] Comment on above: Lumbar radiculopathy (Primary Dx); Chronic right-sided low back pain with right-sided sciatica Start: 02-08-2024 End: 02-08-2024 Bamboo moi Pulido RETARDER OPERATOR Work Phone: [facility] Start: 02-08-2024 End: 02-08-2024 Bamboo moi Pulido RETARDER OPERATOR Work Phone: [facility] Start: 02-08-2024 End: 02-08-2024 ambulatory Dayna Pulido RETARDER OPERATOR Work Phone: [facility] Comment on above: Lumbar radiculopathy (Primary Dx); Chronic right-sided low back pain with right-sided sciatica Start: 02-05-2024 End: 02-05-2024 Bamboo flowsheet Cheryl Kelbley RETARDER OPERATOR [facility] Start: 02-05-2024 End: 02-05-2024 Bamboo flowsheet Cheryl Kelbley RETARDER OPERATOR [facility] Start: 02-05-2024 End: 02-05-2024 ambulatory Cheryl Kelbley RETARDER OPERATOR [facility] Comment on above: Lumbar radiculopathy (Primary Dx); Chronic right-sided low back pain with right-sided sciatica Start: 02-03-2024 End: 02-03-2024 Bamboo flowsheet Dayna Pulido RETARDER OPERATOR Work Phone: [facility] Start: 02-03-2024 End: 02-03-2024 Bamboo flowsheet Dayna Pulido RETARDER OPERATOR Work Phone: [facility] Start: 02-03-2024 End: 02-03-2024 ambulatory Dayna Pulido RETARDER OPERATOR Work Phone: [facility] Comment [...] 01-25-2024 End: 01-25-2024 Bamboo flowsheet Dayna Pulido RETARDER OPERATOR Work Phone: [facility] Start: 01-25-2024 End: 01-25-2024 Bamboo flowsheet Dayna Pulido RETARDER OPERATOR Work Phone: [facility] Start: 01-25-2024 End: 01-25-2024 ambulatory Dayna Pulido RETARDER OPERATOR Work Phone: [facility] Comment on above: Lumbar radiculopathy (Primary Dx); Chronic right-sided low back pain with right-sided sciatica Start: 01-21-2024 End: 01-21-2024 Bamboo flowsheet Dayna Pulido RETARDER OPERATOR Work Phone: [facility] Start: 01-21-2024 End: 01-21-2024 Bamboo flowsheet Dayna Pulido RETARDER OPERATOR Work Phone: [facility] Start: 01-21-2024 End: 01-21-2024 ambulatory Dayna Pulido RETARDER OPERATOR Work Phone: [facility] Comment [...] 12-02-2023 End: 12-02-2023 Bamboo flowsheet Naida Hobson EDGE BLACKER [facility] Start: 12-02-2023 End: 12-02-2023 Bamboo flowsheet Naida Hobson EDGE BLACKER Work Phone: [facility] [address] Start: 12-02-2023 End: 12-02-2023 ambulatory NAIDA HOBSON Not Available Start: 12-02-2023 End: 12-02-2023 Office outpatient visit 25 minutes Naida Hobson EDGE BLACKER Work Phone: [facility] Comment on above: Morbid obesity due t o excess calories (CMS/HCC) (Primary Dx); RENAE on CPAP; Hypoxia; Snoring; Daytime hypersomnolence Start: 11-17-2023 End: 11-17-2023 ambulatory Franchesca [facility] Work Phone: Start: 11-17-2023 End: 11-17-2023 Departed Referred DO Franchesca Nj Work Phone: [facility] Start: 10-28-2023 End: 10-28-2023 Bamboo flowsheet Franchesca Nj DO Work Phone: [facility] Start: 10-28-2023 End: 10-28-2023 Bamboo flowsheet Franchesca Nj DO Work Phone: [facility] Start: 10-28-2023 End: 10-28-2023 Patient encounter procedure Franchesca Nj DO Work Phone: [facility] Comment on above: Encounter for screen ing colonoscopy (Primary Dx) Start: 10-28-2023 End: 10-28-2023 ambulatory FRANHCESCA [place] Not Available Start: 07-13-2023 End: 07-13-2023 ambulatory FRANCHESCA [place] Not Available Start: 06-29-2023 End: 06-29-2023 ambulatory KEVIN BREWER Not Available Start: 05-11-2023 End: 05-12-2023 ambulatory Yin HAWK Facility:[facility] Start: 05-11-2023 End: 05-11-2023 Patient encounter procedure Yin HAWK [facility] Start: 04-07-2023 End: 04-07-2023 ambulatory Demond BUTLER Facility:[facility] Start: 04-07-2023 End: 04-07-2023 Patient encounter procedure Demond Butler MD Work Phone: Radiation Oncology Comment on above: Malignant neoplasm o f prostate (HCC) (Primary Dx) Start: 02-10-2023 End: 02-10-2023 Office outpatient visit 25 minutes Parveen Santo MD Work Phone: [facility] Comment on above: Paroxysmal SVT (supr aventricular tachycardia) (Primary Dx); Primary hypertension; Mixed hyperlipidemia; Morbid obesity with BMI of 40.0-44.9, adult (CMS/HCC); Bifascicular block Start: 09-30-2022 End: 09-30-2022 ambulatory KEVIN BREWER Facility:[facility] Start: 09-30-2022 End: 09-30-2022 Patient encounter procedure Demond Butler MD Work Phone: [facility] Comment on above: Malignant neoplasm o f prostate (HCC) (Primary Dx) Start: 09-08-2022 End: 09-09-2022 ambulatory Yin HAWK Facility:[facility] Start: 09-08-2022 End: 09-08-2022 Patient encounter procedure Yin HAWK [facility] Start: 07-25-2022 Rx Renewal Kevin Brewer Work Phone: [facility] [facility] DO Work Phone: Start: 07-02-2022 End: 07-03-[address] KEVIN BREWER Facility: Start: 04-07-2022 Rx [facility] Work Phone: Start: 04-01-2022 End: 04-01-2022 ambulatory Yancy Oneill APRN.DIAPHRAGM BUILDER Work Phone: Hematology/Oncology Comment on above: Prostate cancer (HCC ) Start: 04-01-2022 End: 04-01-2022 Patient encounter procedure Yancy Oneill APRN.DIAPHRAGM BUILDER Work Phone: [facility] Comment on above: Malignant neoplasm o f prostate (HCC) (Primary Dx) Start: 03-21-2022 End: 03-21-2022 Patient encounter procedure Yin HAWK [facility] Start: 03-11-2022 End: 03-12-[address] KEVIN BREWER Facility: Start: 02-11-2022 ambulatory Parveen Santo II Facility: Start: 02-11-2022 Office outpatient vi sit 15 minutes [facility] Brew[facility] Work Phone: Start: 02-05-2022 Telephone encounter G Chavez Butler MD Work Phone: Radiation Oncology Comment on above: Future Appointment Start: 01-14-2022 Rx Renewal [facility] Work Phone: Start: 09-30-2021 End: 09-30-2021 Patient encounter procedure Yin HAWK [facility] Start: 09-23-2021 End: 09-24-[address] KEVIN BREWER Facility: Start: 08-14-2021 End: 08-14-2021 Patient encounter procedure Demond Butler MD Work Phone: Radiation Oncology Comment on above: Malignant neoplasm o f prostate (HCC) (Primary Dx) Start: 08-12-2021 Patient encounter procedure [facility] Work Phone: Start: 08-12-2021 ambulatory Parveen Santo II Facility: Start: 08-09-2021 End: 08-09-2021 Patient encounter procedure Yin HAWK [facility] Start: 08-05-2021 Telephone encounter Demond Butler [...] CT Start: 07-24-2021 KASSIE Brewer Work Phone: [facility] 250 DO Work Phone: Start: 07-16-2021 End: 07-17-[address] KEVIN BREWER Facility:[facility] Start: 07-04-2021 End: 07-04-2021 Patient encounter procedure Abdulaziz DAWSON [facility] Start: 06-27-2021 End: 06-28-2021 Patient encounter [facility] Work Phone: Start: 04-09-2021 [...] w/le ast 12 lds w/i&r Mary Tam ROTARY DRYER OPERATOR-DIAPHRAGM BUILDER Work Phone: Start: 12-03-2023 MHPT PSA, DIAGNOSTIC Ge neric External Data Provider Start: 11-17-2023 Colonoscopy Naida Alcantar lmor EDGE BLACKER Work Phone: Start: 08-25-2023 Colonoscopy Franchesca Lowery tt DO Work Phone: Start: 03-31-2023 PSA screening [facility] Provi [facility] Start: 02-10-2023 Ecg routine ecg w/le ast 12 lds w/i&r Parveen Santo MD Work Phone: Start: 08-29-2022 PSA screening [facility] Provi kilo Start: 03-11-2022 End: 03-11-2022 PSA screening [facility] Provider Comment on above: Performed By: #### P SAD #### [facility] [address] [place] [address] Dr. Shama Naylor Start: 09-23-[address] KEVIN BROOKS Comment on above: Performed By: #### P SAD #### [facility] [address] [place] [address] Dr. Shama Naylor Start: 07-16-2021 End: 07-16-2021 PSA screening [facility] Provider Comment on above: Performed By: #### P SAD #### [facility] [address] [place] [address] Dr. Shama Naylor Start: 06-27-2021 Brachytherapy Yin [...] Vaccine (1 - 1-dose 75+ series) [facility] Start: 12-20-2024 Medicare Annual Well ness (AWV) Medicare Annual Wellness (AWV) [facility] Start: 09-05-2024 End: 09-05-2024 Patient encounter procedure 09/05/2024 10:00 AM EDT Office Visit [facility] [address] [facility] [address] [place] [address] Esther Mejía MD [address] [facility] [address] [place] [address] [facility] Start: 04-05-2024 End: 04-05-2024 Patient encounter procedure 04/05/2024 1:15 PM EST Office Visit Rad[facility] Oncology [address] [place] [address] [place] [address] Demond Butler MD [address] [place] [address] [place] [address] 1 yr rv Radiation Oncology Comment on above: 1 yr rv Start: 03-23-2024 End: 03-23-2024 Patient encounter procedure 03/23/2024 9:00 AM EST Office Visit [facility] [address] [place] [address] Kevin Brewer MD [address] [place] [address] [facility] Start: 03-08-2024 End: 03-08-2024 Patient encounter procedure 03/08/2024 9:00 AM EST Office Visit [facility] [address] [facility] [address] [place] [address] Pareven Santo MD [address] [facility] [address] [place] [address] [facility] Start: 02-22-2024 End: 02-22-2024 ambulatory 02/22/2024 7:00 AM EST Treatment [facility] [address] [place] [id number] Dayna Pulido, RETARDER OPERATOR [address] [place] [address] [facility] Start: 02-17-2024 End: 02-16-2025 XR Hip - right 3 Views XR hip right 2 or 3 views Imaging Routine Chronic right hip pain Expected: 02/17/2024, Expires: 02/16/2025 [facility] Work Phone: Comment on above: Expected: 02/17/2024 , Expires: 02/16/2025 Start: 02-17-2024 End: 02-17-2024 Patient encounter procedure 02/17/2024 1:30 PM EST Office Visit [facility] [address] [place] [address] Kevin Brewer MD [address] [place] [address] [facility] Start: 02-17-2024 End: 02-17-2024 ambulatory 02/17/2024 9:00 AM EST Treatment [facility] [address] [place] [id number] Dayna Pulido, RETARDER OPERATOR [address] [place] [address] [facility] Start: 02-15-2024 End: 02-15-2024 [...] Treatment [facility] [address] [place] [id number] Franchesca Gray, PT [address] [place], [place] [id number] Arrived [facility] Comment on above: [...] [facility] [address] [place] [id number] Kevin Brewer MD [address] [place] [id number] [facility] Start: 11-01-2023 COVID-19 Vaccine ( season) COVID-19 Vaccine ( season) [facility] Start: 11-01-2023 Covid-19 Vaccine ( season) Covid-19 Vaccine ( season) [facility] Start: 11-01-2023 Influenza vaccination Influenza Vacc ine (#1) [facility] Start: 10-28-2023 End: 10-28-2023 Patient encounter procedure 10/28/2023 10:00 AM EDT Office Visit [facility] [address] [place] [address] Franchesca Nj [address] [place] [address] Arrived ANNA MERCADO Comment on above: Arrived Start: 04-07-2023 End: 07-07-2023 Prostate specific Ag [Mass/volume] in Serum or Plasma PSA/PROSTSPECAG DIAG Lab Routine Malignant neoplasm of prostate (HCC) Expected: 04/07/2023, Expires: 07/07/2023 [facility] Work Phone: Comment on above: Expected: 04/07/2023 , Expires: 07/07/2023 Start: 04-02-2023 End: 06-02-2023 Prostate specific Ag [Mass/volume] in Serum or Plasma PSA/PROSTSPECAG DIAG Lab Routine Malignant neoplasm of prostate (HCC) Expected: 04/02/2023 (Approximate), Expires: 06/02/2023 [facility] Work Phone: Comment on above: Expected: 04/02/2023 (Approximate), Expires: 06/02/2023 Start: 03-02-2023 Advance Directive Discussion Advance Directive Discussion [facility] Start: 03-02-2023 Depression Assessment Depression Ass essment [facility] Start: 02-10-2023 FUV, Provider: Parveen Santo, Status: Pen, Time: 11:00 AM FUV, Provider: Parveen Santo, Status: Pen, Time: 11:00 AM [facility] 250 DO Work Phone: Start: 10-31-2022 Covid-19 Vaccine ( season) Covid-19 Vaccine () [facility] Start: 10-31-2022 Influenza vaccination [facility] Start: 03-02-2022 ADVANCE DIRECTIVE DISCUSSION ADVANCE DIRECTIVE DISCUSSION [facility] Start: 03-02-2022 DEPRESSION ASSESSMENT DEPRESSION ASS ESSMENT [facility] Start: 02-11-2022 FUV, Provider: Parveen Santo, Status: Pen, Time: 10:50 AM FUV, Provider: Parveen Santo, Status: Pen, Time: 10:[address] [facility] Work Phone: Start: 10-31-2021 Influenza vaccination [facility] Start: 04-15-2021 COVID-19 VACCINE (4 - Booster for Pfizer series) COVID-19 VACCINE (4 - Booster for Pfizer series) [facility] Start: 03-02-2021 ADVANCE DIRECTIVE DISCUSSION ADVANCE DIRECTIVE DISCUSSION [facility] Start: 03-02-2021 DEPRESSION ASSESSMENT DEPRESSION ASS ESSMENT [facility] Start: 02-15-2021 FUV, Provider: Parveen Santo, Status: Pen, Time: 1:30 PM FUV, Provider: Parveen Santo, Status: Pen, Time: 1:30 [facility] Work Phone: Start: 02-07-2021 COVID-19 VACCINE (4 - Booster for Pfizer series) COVID-19 VACCINE (4 - Booster for Pfizer series) [facility] Start: 02-07-2021 COVID-19 VACCINE (4 - Pfizer series) COVID-19 VACCINE (4 - Pfizer series) [facility] Start: 07-02-2015 Abdominal aortic aneurysm screening Abdominal Aortic Aneurysm (AAA) Screening [facility] Start: 07-02-2015 Pneumococcal Vaccine : 65+ (1 of 1 - PCV) Pneumococcal Vaccine: 65+ (1 of 1 - PCV) [facility] Start: 07-02-2015 Pneumococcal Vaccine : 65+ Years (1 - PCV) Pneumococcal Vaccine: 65+ Years (1 - PCV) [facility] Start: 07-02-2015 Pneumococcal Vaccine : 65+ Years (1 of 1 - PCV) Pneumococcal Vaccine: 65+ Years (1 of 1 - PCV) [facility] Start: 07-02-2015 PNEUMOCOCCAL: 65+ (1 - PCV) PNEUMOCOCCAL: 65+ (1 - PCV) [facility] Start: 07-02-2015 PNEUMOVAX AGE 65 AND OVER WITH 5YR LOOKBACK (#1) PNEUMOVAX AGE 65 AND OVER WITH 5YR LOOKBACK (#1) [facility] Start: 2010 RSV High Risk: (Elde rly (60+) or Population) (1 - Risk 60-74 years 1-dose series) RSV High Risk: (Elderly (60+) or Population) (1 - Risk 60-74 years 1-dose series) [facility] Start: 2010 RSV Vaccine (1 - 1-d ose 60+ series) RSV Vaccine (1 - 1-dose 60+ series) [facility] Start: 2000 Pneumococcal vaccination Pneum ococcal Vaccine (1 of 1 - PCV) [facility] Start: 2000 SHINGRIX VACCINE (1 of 2) SHINGRIX VACCINE (1 of 2) [facility] Start: 2000 Zoster Vaccines (1 of 2) Zoste r Vaccines (1 of 2) [facility] Start: 07-02-1995 COLOGUARD (FIT-DNA) COLOGUARD (FIT-D NA) [facility] Start: 07-02-1995 Colonoscopy COLONOSCOPY [facility] Start: 07-02-1995 COLORECTAL CANCER SCREENING COLORECTAL CANCER SCREENING [facility] Start: 07-02-[address] COLONOGRAPHY [facility] [place] Start: 07-02-1995 DIABETES SCREEN DIABETES SCREEN [facility] [place] Start: 07-02-1995 Diabetes Screening Diabetes Screenin g [facility] Start: 07-02-1995 FECAL OCCULT BLOOD FECAL OCCULT BLOO D [facility] Start: 07-02-1995 Screening for malign ant neoplasm of colon [facility] Start: 07-02-1995 SIGMOIDOSCOPY SIGMOIDOSCOPY [place] [facility] Start: 1985 Lipid panel Lipid Screening [facility] Start: 1985 LIPID SCREEN LIPID SCREEN [facility] Start: 1972 DTaP/Tdap/Td Vaccine s (1 - Tdap) DTaP/Tdap/Td Vaccines (1 - Tdap) [facility] Start: 1969 SHINGRIX VACCINE (1 of 2) SHINGRIX VACCINE (1 of 2) [facility] Start: 1969 Urine microalbumin profile [facility] Start: 1968 Anxiety Screening Anxiety Screening [facility] Start: 1968 Depression Screening Depression Scre ening [facility] Start: 1968 Diabetes mellitus screening Diabetes Screening [facility] Start: 1968 HEPATITIS C SCREENING HEPATITIS C [facility] Start: 1968 Hepatitis C screening Hepatitis C [facility] Start: 1962 Adult depression screening assessment DEPRESSION SCREENING [facility] Start: 1956 PNEUMOCOCCAL: 65+ (1 - PCV) PNEUMOCOCCAL: 65+ (1 - PCV) [facility] Start: 1950 ABDOMINAL AORTIC ANEURYSM SCREENING ABDOMINAL AORTIC ANEURYSM SCREENING [facility] Start: 1950 Abdominal aortic aneurysm screening Abdominal Aortic Aneurysm Screening [facility] Start: 1950 Lipid panel Lipid Panel [facility] Start: 1950 Medicare Annual Well ness (AWV) Medicare Annual Wellness (AWV) [facility] Start: 1950 Medicare Annual Well ness Visit Medicare Annual Wellness Visit (AWV) [facility] Start: 1950 Screening for malign ant neoplasm of colon [facility] ECG 12 Lead ECG 12 Lead ECG Routine High risk medication use 03/08/2024 9:00 AM EST [facility] Service Area Work Phone: [facility] Immunizations Immunization Date Immunization Notes Care Provider Fa [facility] 11-28-2021 Fluzone High-Dose Quadrivalent 0.7 ML Intramuscular Suspension Prefilled Syringe Kevin Brewer Work Phone: [facility] 250 DO Work Phone: 11-28-2021 influenza virus vaccine, unspecified formulation Yin HAWK [facility] 11-28-2021 influenza, high dose seasonal, preservative-free Parveen Santo MD Work Phone: [facility] Work Phone: 12-13-2020 Pfizer-BioNTech COVID-19 Vacc 30 MCG/0.3ML Intramuscular Suspension Kevin A Naderer Work Phone: [facility] 05-19-2020 Pfizer-BioNTech COVID-19 Vacc 30 MCG/0.3ML Intramuscular Suspension Kevin A Naderer Work Phone: [facility] 04-28-2020 Pfizer-BioNTech COVID-19 Vacc 30 MCG/0.3ML Intramuscular Suspension Kevin A Naderer Work Phone: [facility] 03-02-2020 SARS-CoV-2 (COVID-19 ) mRNA BNT-162b2 vax Abdulaziz DAWSON [facility] Comment on above: Result Comment: pt i s fully vaccinated and has received the booster but does not remember the dates 12-14-2019 influenza virus vaccine, unspecified formulation Yin HAWK [facility] 12-14-2019 influenza, injectabl e, quadrivalent, preservative free Kevin A Naderer Work Phone: [facility] 250 DO Work Phone: 12-01-2019 influenza virus vaccine, unspecified formulation Yin HAWK [facility] 12-01-2019 influenza, seasonal, injectable Kevin A Naderer Work Phone: [facility] 250 DO Work Phone: 02-09-2012 influenza virus vaccine, unspecified formulation Yin HAWK [facility] 02-09-2012 influenza, seasonal, injectable Kevin Brewer Work Phone: [facility] 250 DO Work Phone: Payers Date Payer Category Payer Self-pay [id number] 2020 Medicare supplementa l policy (as second payer) [employer] SENIOR SUPPLEMENT [id number] 2020 Private Health Insurance [employer] Sonia ETNA MEDICARE SUPPLEMENT [id number] 2020-Present [phone] [address] [address] [place] [address] Indemnity [id number] 2020 Private Health Insurance [id number] 2015 Medicare MEDICARE MEDICAR E A AND B [id number] 2015-Present [phone] [address] [address] [place] [address] Medicare [id number] 2015 Medicare [id number] .[id number] 1959 Medicare [id number] 1959 Private Health Insurance [facility] [id number] 1950 Unknown [id number] 2.16.840.1.737349.3.579.2 .356 1950 Unknown [id number] 2.16.840.1.320895.3.579.2 .356 1950 Unknown [id number] 2.16.840.1.470510.3.579.2 .356 1950 Unknown [id number] 2.16.840.1.350101.3.579.2 .593 1950 Unknown [id number] 2.16.840.1.027538.3.579.2 .593 1950 Unknown [id number] 2.16.840.1.446322.3.579.2 .593 1950 Unknown [id number] 2.16.840.1.351538.3.579.2 .593 1950 Unknown [id number] 2.16.840.1.661043.3.579.2 .727 1950 Unknown [id number] 2.16.840.1.366416.3.579.2 .727 1950 Unknown [id number] 2.16.840.1.984374.3.579.2 .727 1950 Unknown [id number] 2.16.840.1.079388.3.579.2 .1259 1950 Unknown [id number] 2.16.840.1.332209.3.579.2 .1259 1950 Unknown [id number] 2.16.840.1.392994.3.579.2 .1259 1950 Unknown [id number] 2.16.840.1.112644.3.579.2 .1259 1950 Unknown [id number] 2.16.840.1.044253.3.579.2 .1259 1951 Unknown [id number] 2.16.840.1.664259.3.579.2 .1258 1950 Unknown [id number] 2.16.840.1.022650.3.579.2 .1258 1950 Unknown [id number] 2.16.840.1.807972.3.579.2 .1258 1950 Unknown [id number] 2.16.840.1.873138.3.579.2 .1258 1950 Unknown [id number] 2.16.840.1.145831.3.579.2 .1258 1950 Unknown [id number] 2.16.840.1.107207.3.579.2 .1258 1950 Unknown [id number] 2.16.840.1.538424.3.579.2 .1258 1950 Unknown [id number] 2.16.840.1.018253.3.579.2 .1258 1950 Unknown [id number] 2.16.840.1.253509.3.579.2 .1258 1950 Unknown [id number] 2.16.840.1.744166.3.579.2 .1258 1950 Unknown [id number] 2.16.840.1.286931.3.579.2 .1258 1950 Unknown [id number] 2.16.840.1.043395.3.579.2 .1258 1950 Unknown [id number] 2.16.840.1.875421.3.579.2 .1258 1950 Unknown [id number] 2.16.840.1.074583.3.579.2 .1244 1950 Unknown [id number] 2.16.840.1.167448.3.579.2 .196 Unknown Unknown [facility] [id number] Unknown [id number] 2.16.840.1.025369.3.579.2 .531 Social History Date Type Detail Facility Start: 05-20-2021 End: 03-08-2024 Alcohol use Alcohol use [facility] Comment on above: 4 8 oz cups of coffe e/occasional decaf coffee; Quit in 1970s; Start: 04-03-2021 End: 03-08-2024 Tobacco smoking status NHIS Ex-smoker [facility] End: 04-03-1981 History of tobacco use Current smoker [facility] End: 04-03-1981 History of tobacco use Pipe Smoker [facility] End: 04-03-1981 History of tobacco use Cigar Smoker [facility] Start: 04-03-2021 End: 12-02-2023 Tobacco use and exposure Smokeless tobacco non-user [facility] Start: 05-20-2021 End: 03-08-2024 Alcohol intake Current drinker of alcohol (finding) [facility] Start: 04-03-2021 History SDOH Alcohol Comment 2-3 times/wk [facility] Start: 1950 Sex Assigned At Not on file [facility] Start: 03-10-2021 End: 03-08-2024 Exposure to SARS-CoV-2 (event) Not sure [facility] Start: 05-20-2021 End: 03-08-2024 Sex Assigned At Male [facility] Tobacco smoking status No Smokin g Status Entered [facility] Start: 03-21-2022 Tobacco smoking status Never s moked tobacco (finding) [facility] Start: 05-11-2023 Tobacco smoking status Never [facility] End: 03-02-1969 History of tobacco use Cigarette Smoker [facility] Work Phone: Start: 02-06-2023 Alcohol Comment [facility] Work Phone: Start: 1950 Sex Assigned At Male F [facility] Do you belong to any clubs or organizations such as jewish groups, unions, fraternal or athletic groups, or [...] 05-11-2023 Functional Status N/A [facility] 09-08-2022 Functional Status N/A [facility] 03-21-2022 Functional Status N/A [facility] 09-30-2021 Functional Status N/A [facility] Clinical Notes 06-11-2021 to 03-08-2024 Assessment & Plan Note - GENA Hill - 03/08/2024 12:48 PM ESTAssessment & Plan Note - GENA Hill - 03/08/2024 12:48 PM ESTPatient InstructionsPatient Instructions Note Date & Type Note Facility 03-08-2024 Evaluation + Plan note Associated Problem(s): Morbid obesity with BMI of 40.0-44.9, adult (Multi) Reviewed the merits of healthy lifestyle choices on overall cardiovascular health. [facility] Work Phone: 03-08-2024 Evaluation + Plan [...] appropriate and potentially safer approach than ablation. [facility] Work Phone: 03-08-2024 Miscellaneous Notes Associated [...] ablation. Associated Problem(s): Paroxysmal SVT (supraventricular tachycardia) ([facility]) Initial diagnosis August 2019 Has remained [...] Compliant with meds documented in this encounter [facility] Work Phone: 03-08-2024 Evaluation + Plan note Associated Problem(s): Paroxysmal SVT (supraventricular tachycardia) ([facility]) Initial diagnosis August 2019 Has remained quiescent on propafenone since June 2021 EKG in office maintaining normal sinus rhythm with bifascicular block [facility] Work Phone: 03-08-2024 Evaluation + Plan note Associated Problem(s): Hypertension Optimal in office [facility] Work Phone: 03-08-2024 Evaluation + Plan note Associated Problem(s): HLD (hyperlipidemia) Low intensity statin Reports he is due for annual labs April 2024 [facility] Work Phone: 03-08-2024 Evaluation + Plan [...] November 2019 MPI no ischemia, no infarct [facility] Work Phone: 03-08-2024 Evaluation + Plan note Associated Problem(s): High risk medication use Propafenone initiated June 2021 EKG in office maintaining normal sinus rhythm November 2019 MPI no ischemia, no infarct August 2019 TTE LVEF 55 to 60% [facility] Work Phone: 03-08-2024 Evaluation + Plan note Associated Problem(s): Obstructive sleep apnea syndrome Compliant with meds [facility] Work Phone: 03-08-2024 History of Present illness [...] orthopedics next month. 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 [...] heart rate greater than 200 bpm. Follow-up [facility] QRGL revealed SVT and was maintained on Cardizem [...] if new symptoms arise. Mary Tam MSN, ROTARY DRYER OPERATOR-DIAPHRAGM BUILDER, PMHNP-[facility] [employer] [place], [place] Please excuse any errors in grammar or translation related to this dictation. Voice recognition software was utilized to prepare this document. documented in this encounter [facility] Work Phone: 03-08-2024 Instructions GENA Hill [...] Mejía 6 months documented in this encounter [facility] Work Phone: 02-17-2024 History of Present [...] and has to use right arm to turkey picker leg getting in/out of truck. Using [...] to Pain Medicine documented in this encounter 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 documented in this encounter 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 X 15 minutes of therapeutic exercises: flexion based, self innom rotation METs PT Assessment: Therapy Diagnosis: LBP, sciatica, pain decreased with manual therapy Functional Limitations: Oswestry low back questionnaire: 12/50 points, 24% impairment [facility] Goals: in 6 weeks Centralize symptoms to [...] 3:48 PM EST documented in this encounter [facility] 12-21-2023 History of Present illness [...] spine wo contrast documented in this encounter [facility] 10-28-2023 History of Present illness [...] HISTORY: Past Medical History: Diagnosis Date Cancer ([facility]) Hypertension ([facility]) Social History Tobacco Use Smoking status: [...] Depression: Not at risk (04/07/2023) Received from [facility], [facility] PHQ-2 PHQ-2 score: 0 Physical [...] Sakina Nj DO documented in this encounter [facility] 05-11-2023 Hospital Discharge instructions Patient [...] treatment? Where to find more information [employer] [place] [employer]: www.cancer.org [employer] [employer]: www.auanet.org Contact a health care [...] provider. Document Revised: 08/12/2021 Document Reviewed: 08/12/2021 Contactual Patient Education 2022 Catapulter. Follow Up Care 09/08/2022 12:26:22 With:CARINE DELGADO, Yin Patel, URL Address: [facility] [address] [place] [phone] When: Unknown Comments:PSA in 6 mos and f/u in 1 yr w/ repeat PSA [facility] 04-07-2023 Note HNO ID: [id number] Author: Demond BUTLER MD Service: ? Author [...] ASSESSMENT/PLAN: Prostate adenocarcinoma, initial PSA 4.3, biopsy Dunreith score 3 + 4 = 7 (grade group 2), clinical stage T2a, N0, M0, stage IIB [T1-T2, N0, M0, PSA <20, GG 2] (AJCC 8th ed.), s/p TRUS Random and MRI fusion biopsy. PSA remains undetectable. No postradiation related issues. Plan see patient back in one year for further postradiation follow-up. Signed by: Demond Butler MD cc: Kevin Brewer MD ([facility]) [address] [place] [address] Portions of the above note extracted and edited from previous visit as well as active information included in the EMR. [facility] 04-07-2023 Nurse Note AUA=12 documented in this encounter [facility] 04-07-2023 History of Present illness Narrative Radiation Oncology - Follow Up Note PATIENT NAME: Luis Luis PATIENT DIAGNOSIS: Prostate adenocarcinoma, initial PSA 4.3, biopsy Dunreith score 3 + 4 = 7 (grade [...] ASSESSMENT/PLAN: Prostate adenocarcinoma, initial PSA 4.3, biopsy Dunreith score 3 + 4 = 7 (grade group 2), clinical stage T2a, N0, M0, stage IIB [T1-T2, N0, M0, PSA <20, GG 2] (AJCC 8th ed.), s/p TRUS Random and MRI fusion biopsy. PSA remains undetectable. No postradiation related issues. Plan see patient back in one year for further postradiation follow-up. Signed by: Demond Butler MD cc: Kevin Brewer MD ([facility]) [address] [place] [address] Portions of the above note extracted and edited from previous visit as well as active information included in the EMR. documented in this encounter [facility] 02-10-2023 History of Present illness [...] in office today documented in this encounter [facility] Work Phone: 02-10-2023 Instructions Felix Caal [...] of your visit. documented in this encounter [facility] Work Phone: 09-30-2022 Note HNO ID: [id number] Author: Demond Butler MD Service: ? Author Type: Physician Type: Progress Notes Filed: 10/03/2022 8:14 AM Note Text: Radiation Oncology - Follow Up Note PATIENT NAME: Luis Luis PATIENT DIAGNOSIS: Prostate adenocarcinoma, initial PSA 4.3, biopsy Dunreith score 3 + 4 = 7 (grade [...] Demond Butler MD cc: Kevin Brewer MD ([facility]) [address] [place] [address] Portions of the above note extracted and edited from previous visit as well as active information included in the EMR. [facility] 09-30-2022 History of Present illness Narrative Radiation Oncology - Follow Up Note PATIENT NAME: Luis Luis PATIENT DIAGNOSIS: Prostate adenocarcinoma, initial PSA 4.3, biopsy Dunreith score 3 + 4 = 7 (grade [...] ASSESSMENT/PLAN: Prostate adenocarcinoma, initial PSA 4.3, biopsy Dunreith score 3 + 4 = 7 (grade group 2), clinical stage T2a, N0, M0, stage IIB [T1-T2, N0, M0, PSA <20, GG 2] (AJCC 8th ed.), s/p TRUS Random and MRI fusion biopsy. PSA remains undetectable. No postradiation related issues. Plan see patient back in 6 months for further postradiation follow-up. Signed by: Demond Butler MD cc: Kevin Brewer MD ([facility]) [address] [place] [address] Portions of the above note extracted and edited from previous visit as well as active information included in the EMR. documented in this encounter [facility] 09-30-2022 Nurse Note AUA 14 Naida Jacobo RN documented in this encounter [facility] 09-08-2022 Hospital Discharge instructions Patient [...] urethra. Follow these instructions at home: Take [id number] and prescription medicines only as told by [...] provider. Document Revised: 09/04/2021 Document Reviewed: 09/04/2021 [employer] Patient Education 2022 [employer] Follow Up Care 03/21/2022 12:44:25 With:CARINE DELGADO, Yin Patel, URL Address: [facility] [address] [place] [address] [phone] When:Within 8 Month(s) Comments:[facility] 04-01-2022 History of Present illness Narrative [...] Yancy Oneill APRN.ANNA documented in this encounter [facility] 04-01-2022 History of Present illness Narrative Radiation Oncology - Follow Up Note PATIENT NAME: Luis Luis PATIENT DIAGNOSIS: Prostate adenocarcinoma, initial PSA 4.3, biopsy Dunreith score 3 + 4 = 7 (grade [...] ASSESSMENT/PLAN: Prostate adenocarcinoma, initial PSA 4.3, biopsy Dunreith score 3 + 4 = 7 (grade [...] Demond Butler MD cc: Kevin Brewer MD ([facility]) [address] [place] [address] Portions of the above note extracted and edited from previous visit as well as active information included in the EMR. documented in this encounter [facility] 04-01-2022 Nurse Note AUA 14 Naida Jacobo RN documented in this encounter [facility] 03-21-2022 Hospital Discharge instructions Patient [...] who: Are older than age 65. Are -[place]amo[place]. Are obese. Have a family history of [...] cells. Follow these instructions at home: Take llle-ekk-nyytuac and prescription medicines only as told by [...] 02/16/2006 Document Revised: 01/29/2018 Document Reviewed: 10/27/2016 [employer] Patient Education Signicat. Follow Up Care 09/30/2021 11:58:37 With:CARINE DELGADO, Yin Patel, URL Address: [address] [place] [address]- When: Unknown Comments:6 mos w/ PSA [facility] 02-06-2022 Miscellaneous Notes Patient has been rescheduled & notified of appointment. Monica Rodríguez Pt has PSA scheduled with Dr Hawk in March and would like to postpone his follow up visit with Dr Butler until after that is done. PSS- please call pt and reschedule. He will be awaiting your call. Naida Jacobo RN documented in this encounter [facility] 09-30-2021 Hospital Discharge instructions Patient [...] urethra. Follow these instructions at home: Take ljnt-ubn-vecqrow and prescription medicines only as told by [...] 02/16/2006 Document Revised: 01/11/2019 Document Reviewed: 03/23/2017 [employer] Patient Education 2020 [employer]. Follow Up Care 04/01/2021 13:09:22 With:CARINE DELGADO, Yin Patel, URL Address: [facility] [address], [place] [address]- [phone] When:Within 6 Month(s) Comments:w/ PSA [facility] 08-14-2021 Nurse Note AUA 18 Naida Jacobo RN documented in this encounter [facility] 08-14-2021 History of Present illness [...] ASSESSMENT/PLAN: Prostate adenocarcinoma, initial PSA 4.3, biopsy Dunreith score 3 + 4 = 7 (grade [...] Demond Butler MD cc: Kevin Brewer MD ([facility]) [address] [place] [address] documented in this encounter [facility] 08-09-2021 Hospital Discharge instructions Patient [...] including vitamins, herbs, eye drops, creams, and pghv-sij-tbjyzpr medicines. Any problems you or family members [...] 07/27/2006 Document Revised: 01/29/2018 Document Reviewed: 02/25/2017 Contactual Patient Education 2020 [employer] Inc. Follow Up Care 07/04/2021 11:13:01 With:CARINE DELGADO, Yin Patel, URL Address: [facility] [address], [place] [address]- [phone] When: Unknown [facility] 08-05-2021 Miscellaneous Notes Ok to resched Luis called in stating he tested positive for COVID-19 on 08/03/21 and his symptoms started , 08/01/21. He has a scheduled 6wk post implant follow up on 08/08/21. He will call us later in the week to possibly reschedule his follow up. Kelly Guo LPN documented in this encounter [facility] 07-25-2021 History of Present illness Narrative Patient: Luis Luis Date:07/25/2021 [facility] Department of Radiation Oncology [facility] RADIATION ONCOLOGY POST SEED IMPLANT SIMULATION NOTE [...] 23:26 PM documented in this encounter [facility] 06-27-2021 History of Present illness Narrative Date: 06/27/21 Facility: [facility] Procedure: prostate transperineal brachytherapy implant Sources: [...] Butler MD (Signed electronically to expedite mailing) [facility] documented in this encounter [facility] 06-11-2021 History of Present illness [...] Butler MD documented in this encounter [facility] 06-11-2021 History of Present illness Narrative LUIS LUIS [id number] 06/11/2021 [facility] Department of Radiation Oncology [facility] RADIATION ONCOLOGY SIMULATION NOTE DATE OF SIMULATION: 06/11/2021 MACHINE: Lumexis Focus 500 Diagnosis: 185 (Prostate Gland) AREA:Prostate PATIENT POSITION: Supine CONTRAST: None PROTOCOL: None CONCURRENT THERAPY: None FIXATION DEVICE: UTS Stabilization device by [employer]. PROCEDURE: Patient was simulated in exaggerated dorsal lithotomy position. Serial images of the prostate were acquired using TRUS and reconstructed in 3D space. These images were imported into [employer] Prostate planning system where a plan was generated. ASSESSMENT/PLAN: Patient tolerated simulation procedure well. Electronically Signed Chavez Butler M.D. / LAURA 25:05 PM documented in this encounter [facility] Evaluation + Plan note Future Appointments Appointment Date:08/05/2021 08:45:00 AM Scheduled Provider:Yin HAWK MD Location:[facility] Appointment Type:URO Office Visit Appointment Date:09/30/2021 10:30:00 AM Scheduled Provider:Yin HAWK MD [facility] Appointment Type:URO Office Visit Future Scheduled TestsPT & PTT 03/05/21BUN 03/05/21Creatinine 03/05/21Electrolyte Panel 03/05/21CBC w/ Auto Diff 03/05/21XR Chest 2 Views 03/05/21 [facility] Evaluation + Plan note Future Appointments Appointment Date:09/30/2021 10:30:00 AM Scheduled Provider:Yin HAWK MD Location:[facility] Appointment Type:URO Office Visit Diagnostic Tests PendingPSA Total 08/09/21 Future Scheduled TestsPT & PTT 03/05/21BUN 03/05/21Creatinine 03/05/21Electrolyte Panel 03/05/21CBC w/ Auto Diff 03/05/21XR Chest 2 Views 03/05/21 [facility] Evaluation + Plan note Future Appointments Appointment Date:03/21/2022 11:00:00 AM Scheduled Provider:Yin HAWK MD Location:[facility] Appointment Type:URO Office Visit Diagnostic Tests PendingPSA Total 09/30/21 Future Scheduled TestsPT & PTT 03/05/21BUN 03/05/21Creatinine 03/05/21Electrolyte Panel 03/05/21CBC w/ Auto Diff 03/05/21XR Chest 2 Views 03/05/21 [facility] Evaluation + Plan note Future Appointments Appointment Date:09/08/2022 10:15:00 AM Scheduled Provider:Yin HAWK MD Location:[facility] Appointment Type:URO Office Visit Diagnostic Tests PendingPSA Total 06/30/22 [facility] Evaluation + Plan note Future Appointments Appointment Date:05/11/2023 09:45:00 AM Scheduled Provider:Yin HAWK MD Location:[facility] Appointment Type:URO Office Visit Diagnostic Tests PendingPSA Total 09/08/22 [facility] [employer] Evaluation + Plan note Future Appointments Appointment Date:05/13/2024 09:45:00 AM Scheduled Provider:Yin HAWK MD Location:[facility] Appointment Type:URO Office Visit Diagnostic Tests PendingPSA Total 05/11/23 [facility] Evaluation note Diagnosis Malignant neoplasm of prostate (HCC)- Primary Malignant neoplasm of prostate [facility] Diagnosis Malignant neoplasm of prostate (HCC)- Primary Malignant neoplasm of prostate [facility] Diagnosis Malignant neoplasm of prostate (HCC)- Primary Malignant neoplasm of prostate [facility] Diagnosis Prostate cancer (HCC) Malignant neoplasm of prostate [facility] Diagnosis Malignant neoplasm of prostate (HCC)- Primary Malignant neoplasm of prostate [facility] Diagnosis Malignant neoplasm of prostate (HCC)- Primary Malignant neoplasm of prostate [facility] Diagnosis Paroxysmal SVT (supraventricular tachycardia)- Primary Primary hypertension Unspecified essential hypertension Mixed hyperlipidemia Morbid obesity with BMI of 40.0-44.9, adult (CMS/HCC) Bifascicular block Other bilateral bundle branch block documented in this encounter [facility] Work Phone: Evaluation note* Diagnosis Malignant neoplasm of prostate (HCC)- Primary Malignant neoplasm of prostate [facility]No assessment information [facility] Work Phone: Evaluation note* Diagnosis Morbid [...] with right-sided sciatica documented in this encounter [facility]* Diagnosis Essential hypertension, benign [...] with right-sided sciatica documented in this encounter [facility]* Diagnosis Essential hypertension, benign [...] lower extremity pain documented in this encounter [facility] HealthcareEvaluation [...] apnea (adult) (pediatric) documented in this encounter [facility] Work Phone: History of Present illness [...] of diet lifestyle modification exercise and weight loss.[facility] [employer] Work Phone: History of Present illness Narrative* [...] merits of diet exercise and weight loss. [facility] [employer] Work Phone: Hospital course Narrative No data available for this section [facility] Hospital Discharge instructions No data available for this section [facility] Progress note No data available for this section [facility] reason for visit Narrative* Rehabilitation - Outpatient (Routine) - Authorized Specialty Diagnoses / Procedures Referred By Myrtle t Referred To Contact Physical Therapy Diagnoses Lumbar radiculopathy Chronic right-sided low back pain with right-sided sciatica Procedures CA OFFICE/OUTPATIENT NEW HIGH MDM 60 MINUTES Kevin Brewer MD [address] [place] [address] Phone: tel: fax: Franchesca Gray, PT [address] [place] [address] Phone: tel: fax: Referral ID Status Reason Start Date Expiration Date Visits Requested Visits Authorized [id number] Authorized Specialty Services Required 01/06/2024 07/04/[address] [facility] N[facility] Rehabilitation - Outpatient (Routine) - Authorized Specialty Diagnoses / Procedures Referred By Contac t Referred To Contact Physical Therapy Diagnoses Lumbar radiculopathy Chronic right-sided low back pain with right-sided sciatica Procedures CA OFFICE/OUTPATIENT NEW HIGH [facility] 60 MINUTES Kevin Brewer MD [address] [place] [address] Phone: tel: fax: Franchesca Gray, PT [address] [place] [address] Phone: tel: fax: Referral ID Status Reason Start Date Expiration Date Visits Requested Visits Authorized [id number] Authorized Specialty Services Required 01/06/2024 07/04/2024 20 30 [facility] for visit Narrative* Rehabilitation - Outpatient (Routine) - Authorized Specialty Diagnoses / Procedures Referred By Contac t Referred To Contact Physical Therapy Diagnoses Lumbar radiculopathy Chronic right-sided low back pain with right-sided sciatica Procedures CA OFFICE/OUTPATIENT NEW HIGH [facility] 60 MINUTES Kevin Brewer MD [address] [place] [address] Phone: tel: fax: Franchesca Gray, PT [address] [place] [address] Phone: tel: fax: Referral ID Status Reason Start Date Expiration Date Visits Requested Visits Authorized [id number] Authorized Specialty Services Required 01/06/2024 03/01/2024 20 30 [facility] Healthcare Summary Purpose Family History No Family [...] Procedures ECG 12 Lead Parveen Santo MD [address] [place] [address] 2, [place] [phone] Referral ID Status Reason Start Date Expiration Date V isits Requested Visits Authorized [id number] Pending Review 02/10/2023 02/10/2024 1 1 Specialty Diagnoses / Procedures Referred By Myrtle romeo Referred To Contact Cardiology Diagnoses Paroxysmal SVT (supraventricular tachycardia) Procedures Follow Up In Cardiology Parveen Santo MD [address] [place] [address] 2, [place] [phone] Parveen Santo MD [address] [place] [address] 2, [place] [phone] Referral ID Status Reason Start Date Expiration Date V isits Requested Visits Authorized [id number] Authorized 02/10/2023 02/10/2024 1 1 Additional Source Comments (unrecognized sect ion and content) No Status Records FoundNo Status Records FoundNo Status Records FoundNo Status Records FoundNo Status Records FoundNo Status Records FoundNo Status Records FoundNo Status Records FoundNo Status Records FoundNo Status Records Found INFORMATION SOURCE (unrecogn ized section and content) DATE CREATED AUTHOR 12/03/2019 [facility] DATE CREATED AUTHOR AUTHOR'S ORGANIZ ATION 02/12/[address] [facility] [place] [facility] DATE CREATED AUTHOR AUTHOR'S ORGANIZ ATION 02/12/2022 [facility] DATE CREATED AUTHOR AUTHOR'S ORGANIZ ATION 07/10/2022 [facility] DATE CREATED AUTHOR AUTHOR'S ORGANIZ ATION 04/17/2023 [facility] DATE CREATED AUTHOR AUTHOR'S ORGANIZ ATION 05/13/2023 [facility] DATE CREATED AUTHOR AUTHOR'S ORGANIZ ATION 11/22/2023 [facility] DATE CREATED AUTHOR AUTHOR'S ORGANIZ ATION 02/23/2024 [facility] EPIC DATE CREATED AUTHOR AUTHOR'S ORGANIZ ATION 03/14/2024 [facility] DATE CREATED AUTHOR AUTHOR'S ORGANIZ ATION 03/23/2024 [facility] Source Comments (unrecognize d section and content) In the event this informatio n is protected by the Federal Confidentiality of Alcohol and Drug Abuse Patient Records regulations: The Federal rules restrict any use of the information to criminally investigate or prosecute any alcohol or drug abuse patient.[facility] the event this information is protected by the Federal Confidentiality of Alcohol and Drug Abuse Patient Records regulations: The Federal rules restrict any use of the information to criminally investigate or prosecute any alcohol or drug abuse patient.[facility] Hospital[facility] the event this information is protected by the Federal Confidentiality of Alcohol and Drug Abuse Patient Records regulations: The Federal rules restrict any use of the information to criminally investigate or prosecute any alcohol or drug abuse patient.[facility] Hospital[facility] the event this information is protected by the Federal Confidentiality of Alcohol and Drug Abuse Patient Records regulations: The Federal rules restrict any use of the information to criminally investigate or prosecute any alcohol or drug abuse patient.[facility] Hospital[facility] the event this information is protected by the Federal Confidentiality of Alcohol and Drug Abuse Patient Records regulations: The Federal rules restrict any use of the information to criminally investigate or prosecute any alcohol or drug abuse patient.[facility] Hospital[facility] the event this information is protected by the Federal Confidentiality of Alcohol and Drug Abuse Patient Records regulations: The Federal rules restrict any use of the information to criminally investigate or prosecute any alcohol or drug abuse patient.[facility] Hospital[facility] the event this information is protected by the Federal Confidentiality of Alcohol and Drug Abuse Patient Records regulations: The Federal rules restrict any use of the information to criminally investigate or prosecute any alcohol or drug abuse patient.[facility] Hospital[facility] the event this information is protected by the Federal Confidentiality of Alcohol and Drug Abuse Patient Records regulations: The Federal rules restrict any use of the information to criminally investigate or prosecute any alcohol or drug abuse patient.[facility] Hospital[facility] the event this information is protected by the Federal Confidentiality of Alcohol and Drug Abuse Patient Records regulations: The Federal rules restrict any use of the information to criminally investigate or prosecute any alcohol or drug abuse patient.[facility] Hospital[facility] the event this information is protected by the Federal Confidentiality of Alcohol and Drug Abuse Patient Records regulations: The Federal rules restrict any use of the information to criminally investigate or prosecute any alcohol or drug abuse patient.[facility] Hospital[facility] the event this information is protected by the Federal Confidentiality of Alcohol and Drug Abuse Patient Records regulations: The Federal rules restrict any use of the information to criminally investigate or prosecute any alcohol or drug abuse patient.[facility] HospitalIn the event this information is protected by the [facility] Confidentiality of Alcohol and Drug Abuse Patient Records regulations: The Federal rules restrict any use of the information to criminally investigate or prosecute any alcohol or drug abuse patient.[facility] HospitalIn the event this information is protected by the Federal Confidentiality of Alcohol and Drug Abuse Patient Records regulations: The Federal rules restrict any use of the information to criminally investigate or prosecute any alcohol or drug abuse patient.[facility] Care Teams (unrecognized sec tion and content) Stringed Instrument Tuner Relationship Specialty Start Date End Date Kevin Brewer [address] [place] [address] PCP - General Family Practice 03/22/21 Yin Hawk MD [address] [place] [address] Referring Urology 03/22/21 Stringed Instrument Tuner Relationship Specialty Start Date End Date Kevin Brewer [address] [place] [address] PCP - General Family Practice 03/22/21 Yin Hawk MD [address] [place] [address] Referring Urology 03/22/21 Stringed Instrument Tuner Relationship Specialty Start Date End Date Kevin Brewer [address] [place] [address] PCP - General Family Practice 03/22/21 Yin Hawk MD [address] [place] [address] Referring Urology 03/22/21 Stringed Instrument Tuner Relationship Specialty Start Date End Date Kevin Brewer [address] [place] [address] PCP - General Family Practice 03/22/21 Yin Hawk MD [address] [place] [address] Referring Urology 03/22/21 Stringed Instrument Tuner Relationship Specialty Start Date End Date Kevin Brewer [address] [place] [address] PCP - General Family Practice 03/22/21 Yin Hawk MD [address] [place] [address] Referring Urology 03/22/21 Stringed Instrument Tuner Relationship Specialty Start Date End Date Kevin Brewer [address] [place] [address] PCP - General Family Medicine 03/22/21 Yin Hawk MD [address] [place] [address] Referring Urology 03/22/21 Stringed Instrument Tuner Relationship Specialty Start Date End Date Kevin Brewer [address] [place] [address] PCP - General Family Medicine 03/22/21 Yin Hawk MD [address] [place] [address] Referring Urology 03/22/21 Stringed Instrument Tuner Relationship Specialty Start Date End Date Kevin Brewer [address] [place] [address] PCP - General Family Medicine 03/22/21 Yin Hawk MD [address] [place] [address] Referring Urology 03/22/21 Stringed Instrument Tuner Relationship Specialty Start Date End Date Kevin Brewer [address] [place] [address] PCP - General Family Medicine 03/22/21 Yin Hawk MD [address] [place] [address] Referring Urology 03/22/21 Stringed Instrument Tuner Relationship Specialty Start Date End Date Kevin Brewer MD [address] [place] [address] PCP - General Family Medicine 02/05/23 Stringed Instrument Tuner Relationship Specialty Start Date End Date Kevin Brewer [address] [place] [address] PCP - General Family Medicine 03/22/21 Yin Hawk MD [address] [place] [address] Referring Urology 03/22/21 Team Status: Inactive Member Role Status Dates Franchesca DO Bren Attending Provider Active Star t: November 17, 2023 End: November 17, 2023 Stringed Instrument Tuner Relationship Specialty Start Date End Date Kevin Brewer [address] [place] [address] PCP - General Family Medicine 03/22/21 Yin Hawk MD [address] [place] [address] Referring Urology 03/22/21 Stringed Instrument Tuner Relationship Specialty Start Date End Date Kevin Brewer [address] [place], [place] [id number] PCP - General Family Medicine 03/22/21 Yin Hawk MD [address] [place] [address] Referring Urology 03/22/21 Stringed Instrument Tuner Relationship Specialty Start Date End Date Kevin Brewer MD [address] [place] [address] PCP - General Family Medicine 06/29/23 Stringed Instrument Tuner Relationship Specialty Start Date End Date Kevin Brewer MD [address] [place] [address] PCP - General Family Medicine 06/29/23 Stringed Instrument Tuner Relationship Specialty Start Date End Date Kevin Brewer MD [address] [place] [address] PCP - General Family Medicine 06/29/23 Stringed Instrument Tuner Relationship Specialty Start Date End Date Kevin Brewer MD [address] [place] [address] PCP - General Family Medicine 06/29/23 Stringed Instrument Tuner Relationship Specialty Start Date End Date Kevin Brewer MD [address] [place] [address] PCP - General Family Medicine 06/29/23 Stringed Instrument Tuner Relationship Specialty Start Date End Date Kevin Brewer MD [address] [place] [address] PCP - General Family Medicine 06/29/23 Stringed Instrument Tuner Relationship Specialty Start Date End Date Kevin Brewer MD [address] [place] [address] PCP - General Family Medicine 06/29/23 Stringed Instrument Tuner Relationship Specialty Start Date End Date Kevin Brewer MD [address] [place] [address] PCP - General Family Medicine 06/29/23 Stringed Instrument Tuner Relationship Specialty Start Date End Date Kevin Brewer MD [address] [place] [address] PCP - General Family Medicine 06/29/23 Stringed Instrument Tuner Relationship Specialty Start Date End Date Kevin Brewer MD [address] [place] [address] PCP - General Family Medicine 06/29/23 Stringed Instrument Tuner Relationship Specialty Start Date End Date Kevin Brewer MD [address] [place] [address] PCP - General Family Medicine 06/29/23 Stringed Instrument Tuner Relationship Specialty Start Date End Date Kevin Brewer MD [address] [place] [address] PCP - General Family Medicine 06/29/23 Stringed Instrument Tuner Relationship Specialty Start Date End Date Kevin Brewer MD [address] [place] [address] PCP - General Family Medicine 06/29/23 Stringed Instrument Tuner Relationship Specialty Start Date End Date Kevin Brewer MD [address] [place] [address] PCP - General Family Medicine 06/29/23 Stringed Instrument Tuner Relationship Specialty Start Date End Date Kevin Brewer MD [address] [place] [address] PCP - General Family Medicine 06/29/23 Stringed Instrument Tuner Relationship Specialty Start Date End Date Kevin Brewer MD [address] [place] [address] PCP - General Family Medicine 06/29/23 Stringed Instrument Tuner Relationship Specialty Start Date End Date Kevin Brewer MD [address] [place] [address] PCP - General Family Medicine 06/29/23 Stringed Instrument Tuner Relationship Specialty Start Date End Date Kevin Brewer MD [address] [place] [phone] PCP - General Family Medicine 06/29/23 Stringed Instrument Tuner Relationship Specialty Start Date End Date Kevin Brewer MD [address] [place] [phone] PCP - General Family Medicine 06/29/23 Stringed Instrument Tuner Relationship Specialty Start Date End Date Kevin Brewer MD [address] [place] [phone] PCP - General Family Medicine 06/29/23 Stringed Instrument Tuner Relationship Specialty Start Date End Date Kevin Brewer MD [address] [place] [phone] PCP - General Family Medicine 06/29/23 Stringed Instrument Tuner Relationship Specialty Start Date End Date Kevin Brewer MD [address] [place], [place] [id number] PCP - General Family Medicine 02/05/23 Reason for Visit (unrecogniz ed section and content) Reason Comments Annual Exam Specialty Diagnoses / Procedures Referred By Myrtle romeo Referred To Contact Cardiology Diagnoses Paroxysmal SVT (supraventricular tachycardia) ([facility]) Procedures Follow Up In Cardiology Parveen Santo MD McGuinn, William P, MD Retired From Practice Referral ID Status Reason Start Date Expiration Date V isits Requested Visits Authorized [id number] Authorized 02/10/2023 02/10/2024 1 1 Specialty Diagnoses / Procedures Referred By Myrtle romeo Referred To Contact Radiation Oncology / RADIATION ONCOLOGY Diagnoses Malignant neoplasm of prostate Seed Implant at [facility] Procedures SEED IMPLANT Demond Butler MD [address] [place] [address] [place] [address] Demond Butler MD [address] [place] [address] [place] [address] Referral ID Status Reason Start Date Expiration Date V isits Requested Visits Authorized [id number] Authorized 06/27/2021 03/01/2022 99 99 Reason Comments FYI-No Action Needed Covid19 Concern Reason Comments Prostate Cancer Reason Comments Future Appointment Specialty Diagnoses / Procedures Referred By Contac t Referred To Contact Diagnoses Paroxysmal SVT (supraventricular tachycardia) Procedures ECG 12 Lead Parveen Santo MD [address] [place] [address] Referral ID Status Reason Start Date Expiration Date V isits Requested Visits Authorized [id number] Pending Review 02/10/2023 02/10/2024 1 1 Specialty Diagnoses / Procedures Referred By Contac t Referred To Contact Radiation Oncology / RADIATION ONCOLOGY Diagnoses Malignant neoplasm of prostate SIM/JADA/Pelvis Procedures SIMULATION [place]RAY IMRT 25 fractions Demond Butler MD [address] [place] [address] [place] [address] Demond Butler MD [address] [place] [address] [place] [address] Referral ID Status Reason Start Date Expiration Date Visits Re quested Visits Authorized [id number] Closed 04/09/2021 03/01/2022 99 99 Reason Comments [...] BE BASED ON THE PRIMARY CLINICAL RECORDS. [employer] provides no warranty or guarantee of the accuracy or completeness of information in this document.
[2024-03-23 13:04] LABS: Prostate Specific Antigen Dx <0.13 ng/mL (<=4.00)
== END 2024-03-23 11:49 | disposition home or self-care (01) ==
LOC: LAB 11:53
PROVIDERS: PCP Family Medicine; Visit Provider Urology
DX: C61 Malignant neoplasm of prostate (principal)
CPT/HCPCS: 36415; 84153

== ENCOUNTER 2024-04-19 12:45 | Outpatient (OUT) | payer MEDICARE, SELFPAY ==
--- NOTE | 2024-04-19 | CONS_ITS ---
PROCEDURE DATE: 04/19/2024 PROCEDURE: Right greater trochanteric bursa injection in the office. PREOPERATIVE DIAGNOSIS: Pain secondary to right trochanteric bursitis. POSTOPERATIVE DIAGNOSIS: Pain secondary to right trochanteric bursitis. SOLUTION USED FOR INJECTION: 2 mL of 2% lidocaine, 2 mL of 0.25% Marcaine and 20 mg of Kenalog, total of 5 mL, and 5 mL used for the injection in divided doses. IMMEDIATE COMPLICATIONS: None. PROCEDURE: After informed consent was obtained from the patient, placed in the standing position. Skin overlying the area was prepped with alcohol. A 25 gauge, 1 ?? needle inserted into the right greater trochanteric bursa at a point just proximal to the insertion of the right gluteus medius. After encountering same, we injected 5 mL of solution in divided doses on different areas of the right trochanteric bursa. Post procedure, the needle was removed. Tolerated procedure with no complications. Patient reports a reduction in his pain symptoms. SHAHLA
--- OUTSIDE RECORDS SUMMARY | 2024-04-19 13:02 | XMS_ITS | CCD ---
Author Organization [facility] [employer] Care Team Providers Care Supervisor Sheet Manufacturing Name Role Phone Kevin Brewer Unavailable Unavailable Unavailable Unavailable Unavailable Kevin Brewer Primary Care Provider Carine DELGADO, Yin R Unavailable [phone] KEVIN BREWER Primary Care Physician Unavailable Unavailable [...] Bal Primary Care Provider Yin Hawk MD R Unavailable [phone] DANIELLA, DR KEVIN Scott Primary Care Unavailable NADEREAmanda, DR KEVIN Scott Admitting Unavailable NADERER, DR KEVIN Scott Attending Unavailable NADEREAmanda, DR KEVIN Scott Consulting Unavailable DANIELLA, DR KEVIN Scott Primary Care Unavailable ENGELER, DR BOAZ Denney Admitting Unavailable ENGELER, DR BOAZ Denney Attending Unavailable ENGELER, DR BOAZ Denney Consulting Unavailable YOVANAEREAmanda, DR KEVIN Scott Primary Care Unavailable YIN HAWK Admitting Unavailable YIN HAWK Attending Unavailable YIN HAWK Consulting Unavailable DANIELLA, DR KEVIN Scott Primary Care Unavailable YIN HAWK Admitting Unavailable YIN HAWK Attending Unavailable YIN HAWK Consulting Unavailable Kevin Brewer MD Primary Care Provider Yin HAWK Attending Unavailable Yin HAWK Attending Unavailable Yin HAWK Attending Unavailable DO Franchesca Nj Attending Provider Franchesca Nj Attending Unavailable Franchesca Nj Admitting Unavailable Kevin Brewer Primary Care Provider Yin Hawk MD Unavailable [phone] Kevin Brewer MD Primary Care Provider MARY TAM Attending Unavailable PARVEEN SANTO Referring Unavailable KEVIN BREWER Primary Care Unavailjennifer Ornelas MD, Shantelle Woodward Attending Unavailable NADERER, KEVIN Attending Unavailable NADERER, KEVIN Attending Unavailable ONDINAFRANCHESCA Attending Unavailable FRANCHESCA NJ Attending Unavailable GILLMONAIDA Patel Attending Unavailable NADERER, KEVIN Attending Unavailable TANJA DING Attending Unavailable NADEREAmanda, KEVIN Referring Unavailable MARINAFRANCHESCA PULIDO Attending Unavailable NADERER, KEVIN Referring Unavailable PULIDO, DAYNA Attending Unavailable NADERER, KEVIN Referring Unavailable PULIDO, DAYNA Attending Unavailable NADERER, KEVIN Referring Unavailable MARINAFRANCHESCA PULIDO Attending Unavailable NADERER, KEVIN Referring Unavailable PULIDO, DAYNA Attending Unavailable NADERER, KEVIN Referring Unavailable KELBLEYCHERYL Attending Unavailable NADERER, KEVIN Referring Unavailable PULIDO, DAYNA Attending Unavailable NADERER, KEVIN Referring Unavailable PULIDO, DAYNA Attending Unavailable NADERER, KEVIN Referring Unavailable PULIDO, DAYNA Attending Unavailable NADERER, KEVIN Referring Unavailable PULIDO, DAYNA Attending Unavailable NADERER, KEVIN Referring Unavailable NADERER, KEVIN Attending Unavailable PULIDO, DAYNA Attending Unavailable NADERER, KEVIN Referring Unavailable Gunjanr Kevin DELGADO Primary Care Provider [phone] Demond BUTLER Attending Unavailable Demond BUTLER Referring Unavailable KEVIN BREWER Primary Care Unavailable Allergies Allergy Classification Reported Allergen(s) Allergy Type Date of Onset Reaction(s) Facility (1 source) tamsulosin Drug Allergy 05-31-2021 [facility] Repository Medications Current Medications Medication Drug Class(es) Dates Sig (Normalized) Sig (Original) acetaminophen 325 mg oral tablet (17 sources) Start: 03-07-2021 acetaminophen (TYLENOL) 325 mg tablet Take by mouth. 03/07/2021 Active Start: 03-07-2021 take 2 tablets by mo [facility] at bedtime as needed for pain acetaminophen 325 mg Tab 650 mg = 2 tab(s), Oral, Bedtime, PRN as needed for pain Start Date: 03/07/21 Status: Ordered Comment on above: Take by mouth. Acetaminophen / diphenhydrAM INE (10 sources) Histamine-1 Receptor Antagonist acetaminophen/diphen hydr amine [...] sources) HMG-CoA Reductase Inhibitor Start: 0 End: atorvastatin (LIPITOR) 10 mg tablet Take 10 mg by mouth. 09/28/2019 Active Comment on above: Take 10 mg by mouth. baclofen 10 mg oral tablet (4 sources) gamma-Aminobutyric Acid-ergic Agonist Start: 5 End: take 1 tablet by mouth once daily baclofen 10 mg tablet Take 1 tablet by mouth once daily. 04/05/2024 04/05/2025 Active Start: 03-08-2024 [facility] baclofen (Lioresal) 10 MG tablet Take 10 mg by mouth Daily 03/08/2024 Active bisacodyl 5 mg delayed release oral tablet (2 sources) Stimulant Laxative Start: 10-28-2023 End: 10-28-2023 take 1 tablet by mouth once bisacodyl (Dulcolax) 5 MG EC tablet Indications: Encounter for screening colonoscopy Take 1 tablet (5 mg) by mouth 1 time for 1 dose Do not crush, chew, or split. Take as detailed on clinic hand out for colonoscopy prep 1 tablet 10/28/2023 10/28/2023 Active chondroitin sulfates 400 mg / glucosamine hydrochloride 500 mg oral capsule (4 sources) Start: 03-08-2024 glucosamine-ch ondro itin 500-400 mg capsule 03/08/2024 Active Start: 03-08-2024 Glucosamine-Ch ondroitin 500-400 MG capsule 03/08/2024 Active 24 hr dilTIAZem hydrochloride 240 mg extended release oral tablet (20 sources) Calcium Channel Braeden Start: 09-28-2019 take 1 tablet by mouth every twenty-four [...] mouth every twenty-four hours as needed furosemide (LASIX) 40 mg tablet Take 40 mg by mouth at bedtime as needed. 07/28/2023 Active hyoscyamine sulfate 0.12 mg / methenamine 118 mg / methylene blue 10 mg / phenyl salicylate 36 mg / sodium phosphate, monobasic 40.8 mg oral capsule (8 sources) Oxidation-Reduction Agent Start: 2 take 1 capsule by mouth twice daily URO-MP 118-10-40.8-36 mg Take 1 capsule by mouth twice daily. 08/09/2021 Active Comment on above: Take 1 capsule by [facility] twice daily. meloxicam 15 mg oral tablet (20 sources) Nonsteroidal Anti-inflammatory Drug Start: meloxicam (MOBIC) 15 mg tablet Take 15 mg by mouth. 02/17/2024 Active Start: 12-21-2023 End: 01-18-2024 take [...] Date: 08/09/21 Status: Ordered polyethylene glycol 3350 89967 mg powder for oral solution (2 sources) [...] oral tablet (20 sources) Start: 07-28-2023 take 20 mEq by mouth every twenty-four hours as needed potassium chloride 20 mEq TbER Take 20 mEq by mouth at bedtime as needed. 07/28/2023 Active propafenone hydrochloride 150 [...] 0 Refills: 0 Ordered: 24-Jul-2021 DO Active lisinopril 10 mg oral tablet (1 source) Angiotensin Converting Enzyme Inhibitor Start: 09-27-2019 End: 09-28-2019 take 10 mg by mouth once daily Lisinopril Discontinued 10 MG PO Daily September 27, 2019 12:00am September 28, 2019 1:39pm naproxen sodium 220 mg oral capsule (3 sources) Nonsteroidal Anti-inflammatory Drug End: 04-12-2024 naproxen sodium (ALEVE) 220 mg cap Take by mouth. 04/12/2024 Discontinued (Discontinued by Patient) Comment on above: Take by mouth. simvastatin [...] 01-21-2021 Chronic Other aftercare (3 sources) Other [employer] (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; Translations: [OTH EXHIBIT CLEANER CURRENT DRUG THERAPY] Onset: 07-09-2022 Episodic Other aftercare (3 sources) Taking high risk medication; Translations: [Other care home (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] Onset: 03-08-2024 03-08-2024 Episodic Other diseases of kidney and ureters (1 source) Urinary tract obstruction; Translations: [Other obstructive and reflux uropathy] Onset: 09-27-2021 Episodic Other lower respiratory disease (2 sources) Hypoxia; Translations: [Hypoxemia] 12-02-2023 Episodic Other lower respiratory disease (2 sources) Snoring; Translations: [Snoring] 12-02-2023 Episodic Other non-traumatic joint disorders (11 sources) Hip pain; Translations: [Pain in right hip] Onset: 02-17-2024 02-17-2024 Episodic Other nutritional; endocrine; and metabolic disorders (6 sources) Obesity; Translations: [Obesity, unspecified] Chronic Other nutritional; endocrine; and metabolic disorders (9 sources) Severe obesity; Translations: [Class 3 severe obesity due to excess calories without serious comorbidity with body mass index (BMI) of 40.0 to 44.9 in adult] Onset: 06-29-2023 01-18-2021 Chronic Other nutritional; endocrine; and metabolic [...] Spondylosis; intervertebral disc disorders; other back problems (11 sources) Degeneration of lumbar intervertebral disc; Translations: [Degeneration of intervertebral disc of lumbar region with discogenic back pain and lower extremity pain] Onset: 12-21-2023 02-17-2024 Chronic Unclassified (1 source) Supraventricular tachycardia, unspecified (CMS-HCC); Translations: [Supraventricular tachycardia, unspecified (CMS-HCC)] Onset: 02-06-2023 Past or Other Problems Problem Classification Problem Date Documented Date Episodic/Chronic Calculus of urinary tract (1 source) Calculus of ureter; Translations: [CALCULUS OF URETER] Onset: 09-24-2021 Episodic Mood disorders (3 sources) Mood disorders Onset: 03-23-2024 03-23-2024 Nonspecific chest pain (11 sources) Chest pain; Translations: [Chest pain, unspecified] Onset: 02-06-2023 Resolved: 03-08-2024 02-06-2023 Episodic Other aftercare (20 sources) Long-term current use of drug therapy; Translations: [Other [employer] (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] Onset: 06-29-2023 06-29-2023 Episodic Other aftercare (3 sources) Patient encounter status; Translations: [Other [employer] (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] Onset: 06-29-2023 06-29-2023 Episodic [...] Translations: [Localized edema] Onset: 06-29-2023 06-29-2023 Episodic Spondylosis; intervertebral disc disorders; other back problems (20 sources) Lumbar radiculopathy; Translations: [Chronic low back pain] Onset: 12-21-2023 12-21-2023 Episodic Unclassified (2 sources) Onset: 02-10-2023 Resolved: 03-08-2024 02-10-2023 Unclassified (1 source) Supraventricular tachycardia, unspecified (CMS-HCC); Translations: [Supraventricular tachycardia, unspecified ([facility]-HCC)] Onset: 03-08-2024 Results Test Name Value Interpretation Reference Range Facility OVon 04-12-2024 CNOV Office Visit (RADTSA ) -------- LUIS LUIS ([id number]) 1950 M Date Time Provider Department 04/12/24 2:00 PM Demond BUTLER During your visit today, we recorded the following information about you: Temperature Pulse Respiration Blood pressure 97 degrees 70/minute 18/minute 133/82 Weight 146.1 kg Demond Butler MD 04/12/2024 2:11 PM Signed Radiation Oncology - Follow Up Note PATIENT NAME: Luis Luis PATIENT DIAGNOSIS: Prostate adenocarcinoma, initial PSA 4.3, biopsy [place] score 3 + 4 = 7 (grade [...] PSA HISTORY: PSA. (no units) Date Value 03/23/2024 <0.13 03/31/2023 <0.13 08/29/2022 <0.13 03/11/2022 <0.13 ALLERGIES No Known Allergies baclofen 10 mg tablet Take 1 tablet by mouth once daily. furosemide (LASIX) 40 mg tablet Take 40 mg by mouth at bedtime as needed. glucosamine-chondroitin 500-400 mg capsule meloxicam (MOBIC) 15 mg tablet Take 15 mg by mouth. potassium chloride 20 mEq TbER Take 20 mEq by mouth at bedtime as needed. URO-MP 118-10-40.8-36 mg Take 1 capsule by [...] or tachycardia portable - Total AUA Score: 11 Bowel movement frequency: 1/day Bowel movement quality: normal Blood per rectum: none Unable to have erection Androgen deprivation: Onfsunh3p only, was discontinued PHYSICAL EXAM: BP 133/82 Pulse 70 Temp 36.1 ?C (97 ?F) Resp 18 Wt (!) 146.1 kg (322 lb 1.5 oz) SpO2 98% KPS: 100 General Appearance: Alert and oriented. No acute distress. Rectal exam is deferred. ASSESSMENT/PLAN: Prostate adenocarcinoma, initial PSA 4.3, biopsy Cy score 3 + 4 = 7 (grade group 2), clinical stage T2a, N0, M0, stage IIB [T1-T2, N0, M0, PSA <20, GG 2] (AJCC 8th ed.), s/p TRUS Random and MRI fusion biopsy. Overall doing fairly well. PSA remains undetectable. Plan see patient back in one year for further postradiation follow-up. Signed by: Demond Butler MD cc: Kevin Brewer MD ([facility]) [address] [place] [address] Portions of the above note extracted and edited from previous visit as well as active information included in the EMR. Demetrius Guo RN 04/12/2024 2:11 PM Signed AUA= 11 Referring Provider: Demond BUTLER [[id number]] Allergies As of Date: 04/12/2024 (No Known Allergies) Date Reviewed: 04/12/2024 Reviewed by: Demetrius Guo RN - Fully Assessed Reason for Visit: Prostate Cancer [590] Primary Visit Diagnosis:Malignant neoplasm of prostate (HCC) [C61] Order(s):PSA (OUTSIDE) [4087575] Order #: [id number] PROSTATE-SPECIFIC ANTIGEN DIAGNOSTIC [SQPSA] Order #: [id number] FUTURE Prescriptions as of 04/12/2024 - baclofen 10 mg tablet Take 1 tablet by mouth once daily. - furosemide (LASIX) 40 mg tablet Take 40 mg by mouth at bedtime as needed. - glucosamine-chondroitin 500-400 mg capsule - meloxicam (MOBIC) 15 mg tablet Take 15 mg by mouth. - potassium chloride 20 mEq TbER Take 20 mEq by mouth at bedtime as needed. - URO-MP 118-10-40.8-36 mg Take 1 capsule [...] by mouth. Problem List As Of Date 04/12/2024 Noted Resolved Prostate cancer (HCC) [C61] 04/01/2022 Medications Discontinued During This Encounter Prescriptions - naproxen sodium (ALEVE) 220 mg cap (Discontinued) Take by mouth. Level of Service: OFFICE/OUTPATIENT ESTABLISHED SF MDM 10 MIN [89565] (more content not included)... [facility], [facility] PROSTATE SPECIFIC ANTIGEN DX <0.13 NINF - 4.00 ng/mL [facility], [facility] -2024 PROSTATE SPECIFIC ANTIGEN DX 0.13 ng/mL NINF - 4.00 ng/mL [facility] Ruddy 11-17-2023 L Specimen: [id number] Received: 11/18/23 Status: LEILANI Bello Num: [id number] Spec Type: Surgical Subm Dr: Franchesca Nj DO Tissues: A Colon Biopsy (SIGMOID POLYP) Procedures: HE/2, Gross/Micro L4 Age/ Patient Sex Location Account Attending Physician Luis Luis 73/M LABELL [id number] Franchesca Nj DO SPEC NUM: [id number] RECD: 11/18/23 STATUS: LEILANI MARXFlorentin NUM: [id number] LULÚ: 11/17/[address]: Franchesca Nj DO ENTERED: 11/18/[address] [facility] [address]: Solange [place] SPEC TYPE: Surgical DEPT: CECILIO RODRIGUEZ ENTERED BY: [id number] RECV BY: [id number] ORDERED: HE/2, Gross/Micro L4 ORDERED: HE/2, Gross/Micro [...] entirely submitted in cassette A1. CPT Codes 09089 Specimen: [id number] Received: 11/18/23 Status: LEILANI Bello Num: [id number] Spec Type: Surgical Subm Dr: Franchesca Nj DO Tissues: A Colon Biopsy (SIGMOID POLYP) Procedures: HE/2, Gross/Micro L4 Patient: Luis Luis [id number] (Continued) Signed (signature on file) Brynn Watson MD 11/19/231926 Normal [facility] Ambulatory Visit Summaryon 0 [...] Appointments Thursday 9:45 AM EDT With: Yin HAWK MD Where: [facility] Marta Gregg [facility] Patient Educationon 05-11-19 24 Patient Education Oncology [...] to find more information ? The [place] [employer]: www.cancer.org ? [place] [employer]: www.auanet.org Contact a health care [...] flu (more content not included)... Normal [facility] Urology Office/Clinic Noteon 05-11-2023 Urology Office/Clinic [...] [facility] [address], [place] [phone] Additional Instructions: PSA in 6 mos and [...] (more content not included)... Normal [facility] Comment on above: Result Comment: Elec tronically Signed By: Yin HAWK MD\.br\Date and Time Signed: 05/11/23 10:34 EDT\.br\Electronically Co-Signed By: Kimberly Nash.br\Date and Time Co-Signed: 05/11/23 10:32 EDT [facility] 04-01-2023 Lab Reports [id number] F Normal [facility] ECG 12 Leadon 02-10-2023 Normal sinus rhythm Right bundle branch block left anterior fascicular block Bifascicular block Cannot exclude age-indeterminate inferior infarct QTc 443 ms [facility] Work Phone: [facility] 09-09-2022 Lab Reports [id number]: 127 Normal [facility] Ambulatory Visit Summaryon 0 09-08-2022 Ambulatory Visit Summary LUIS LUIS :1950 Visit Date:09/08/2022 Ambulatory Visit Instructions Your Diagnosis Prostate cancer BPH with urinary obstruction Family history of prostate cancer Tests Performed Urnls Dip Stick Auto w/o Microscopy POC 01266 Your Care Team Attending Physician - CARINE [...] DELGADO, Yin Patel Where: [facility] Patient Educationon 09-09-19 23 Patient [...] Follow these instructions at home: ? Take sqwv-nbo-zpzglvu and prescription medicines only as told by [...] (more content not included)... Normal [facility] Urology Office/Clinic Noteon 09-08-2022 Urology Office/Clinic Note [...] [facility] [address], [place] [address] [id number] Additional Instructions: PSA Patient Education Benign Prostatic [...] (more content not included)... Normal [facility] Comment on above: Result Comment: Elec tronically Signed By: Yin HAWK MD\.br\Date and Time Signed: 09/08/22 12:22 EDT\.br\Electronically Co-Signed By: Kimberly Nash\.br\Date and Time Co-Signed: 09/08/22 12:20 EDT CBC AUTO DIFFon 07-02-2022 BASO # 0.1 103/ul Normal 0.0-0.1 [facility] Comment on above: Performed By: #### C BC #### [facility] [address] [place] [address] Dr. Shama Naylor Basophils/100 WBC (Bld) 0.8 % Normal 0.2-2.0 [facility] Comment on above: Performed By: #### C BC #### [facility] [address] [place] [address] Dr. Shama Naylor EO # 0.1 103/ul Normal 0.0-0.7 [facility] Comment on above: Performed By: #### C BC #### [facility] [address] [place] [address] Dr. Shama Naylor Eosinophils/100 WBC (Bld) 2.0 % Normal 0.9-7.0 [facility] Comment on above: Performed By: #### C BC #### [facility] [address] [place] [address] Dr. Shama Naylor Erythrocyte distribution width (RBC) [Ratio] 13.6 % Normal 11.0-15.0 [facility] Comment on above: Performed By: #### C BC #### [facility] [address] [place] [address] Dr. Shama Naylor Hematocrit (Bld) [Volume fraction] 40.0 % Critically low 42.0-54.0 [facility] Comment on above: Performed By: #### C BC #### [facility] [address] [place] [address] Dr. Shama Naylor Hemoglobin (Bld) [Mass/Vol] 13.6 g/dL Critically low 14.0-18.0 [facility] Comment on above: Performed By: #### C BC #### [facility] [address] [place] [address] Dr. Shama Naylor IG # 0.02 10e3/ul Normal 0.00-0.03 [facility] Comment on above: Performed By: #### C BC #### [facility] [address] [place] [address] Dr. Shama Naylor IG % 0.3 % Normal 0.0-0.5 [facility] Comment on above: Performed By: #### C BC #### [facility] [address] [place] [address] Dr. Shama Naylor LYMPH # 1.6 103/ul Normal 1.2-3.8 [facility] Comment on above: Performed By: #### C BC #### [facility] [address] [place] [address] Dr. Shama Naylor Lymphocytes/100 WBC (Bld) 26.0 % Normal 20.5-60.0 [facility] Comment on above: Performed By: #### C BC #### [facility] [address] [place] [address] Dr. Shama Naylor MANUAL DIFF REQ NO Normal [facility] Comment on above: Performed By: #### C BC #### [facility] [address] [place] [address] Dr. Shama Naylor MCH (RBC) [Entitic mass] 30.8 pg Normal 25.9-34.0 [facility] Comment on above: Performed By: #### C BC #### [facility] [address] [place] [address] Dr. Shama Naylor MCHC (RBC) [Mass/Vol] 34.0 g/dL Normal 29.9-35.2 [facility] Comment on above: Performed By: #### C BC #### [facility] [address] [place] [address] Dr. Shama Naylor MCV (RBC) [Entitic vol] 90.7 fL Normal 80.0-94.0 [facility] Comment on above: Performed By: #### C BC #### [facility] [address] [place] [address] Dr. Shama Naylor MONO # 0.4 103/ul Normal 0.3-0.8 [facility] Comment on above: Performed By: #### C BC #### [facility] [address] [place] [address] Dr. Shama Naylor Monocytes/100 WBC (Bld) 6.1 % Normal 1.7-12.0 [facility] Comment on above: Performed By: #### C BC #### [facility] [address] [place] [address] Dr. Shama Naylor NEUT # 3.9 103/ul Normal 1.4-6.5 [facility] Comment on above: Performed By: #### C BC #### [facility] [address] [place] [address] Dr. Shama Naylor Neutrophils/100 WBC (Bld) 64.8 % Normal 43.0-75.0 [facility] Comment on above: Performed By: #### C BC #### [facility] [address] [place] [address] Dr. Shama Naylor Platelet mean volume (Bld) [Entitic vol] 10.3 fL Normal 9.5-13.5 [facility] Comment on above: Performed By: #### C BC #### [facility] [address] [place] [address] Dr. Shama Naylor PLT 165 103/ul Normal 150-450 [facility] Comment on above: Performed By: #### C BC #### [facility] [address] [place] [address] Dr. Shama Naylor RBC 4.41 106/ul Critically low 4.70-6.[address] [facility] Comment on above: Performed By: #### C BC #### [facility] [address] [place], [place] [address] Dr. Shama Naylor WBC 6.0 103/ul Normal 4.0-11.0 [facility] Comment on above: Performed By: #### C BC #### [facility] [address] [place] [address] [address] Shama Nyalor LIPID PROFILEon 07-02-2022 CHOL-HDL RATIO NORM SEE BELOW Normal [facility] Comment on above: Result Comment: 3.3 - 4.4 LOW RISK 4.4 - 7.1 AVERAGE RISK 7.1 - 11.0 MODERATE RISK >11.0 HIGH RISK Performed By: #### L IPID, BMP, LIVER #### [facility] [address] [place] [address] [address] Shama Naylor Cholesterol [Mass/Vol] 157 mg/dL Normal <=200 [facility] Comment on above: Performed By: #### L IPID, BMP, LIVER #### [facility] [address] [place], [place] [address] Dr. Shama Naylor Cholesterol in HDL [Mass/Vol] 58 mg/dL Normal 40-60 [facility] Comment on above: Performed By: #### L IPID, BMP, LIVER #### [facility] [address] [place] [address] [address] Shama Naylor Cholesterol in LDL [Mass/Vol] 81.8 mg/dL Normal [facility] Comment on above: Performed By: #### L IPID, BMP, LIVER #### [facility] [address] [place], [place] [address] Dr. Shama Naylor Cholesterol.total/ Cholesterol in HDL [Mass ratio] 2.7 {ratio} Normal [facility] Comment on above: Performed By: #### L IPID, BMP, LIVER #### [facility] [address] [place] [address] [address] Shama Naylor HDL NORMAL > or = 60 mg/dl - LO W CARDIOVASCULAR RISK <40 mg/dl - HIGH CARDIOVASCULAR RISK Normal [facility] Comment on above: Performed By: #### L IPID, BMP, LIVER #### [facility] [address] [place] [address] [address] Shama Naylor LDL CALC NORMAL SEE BELOW Normal [facility] Comment on above: Result Comment: <100 mg/dl OPTIMAL 100 - 129 mg/dl NEAR OR ABOVE OPTIMAL 130 - 159 mg/dl BORDERLINE HIGH 160 - 189 mg/dl HIGH >190 mg/dl VERY HIGH Performed By: #### L IPID, BMP, LIVER #### [facility] [address] [place] [address] [address] Shama Naylor Triglyceride [Mass/Vol] 86 mg/dL Normal <=150 [facility] Comment on above: Performed By: #### L IPID, BMP, LIVER #### [facility] [address] [place] [address] [address] Shama Naylor VLDL CALC 17.2 mg/dL Normal [facility] Comment on above: Performed By: #### L IPID, BMP, LIVER #### [facility] [address] [place] [address] [address] Shama Naylor LIVER PROFILEon 07-02-2022 Albumin [Mass/Vol] 3.3 g/dL Critically low 3.4-5.0 [facility] Comment on above: Performed By: #### L IPID, BMP, LIVER #### [facility] [address] [place] [address] [address] Shama Naylor Albumin/Globulin [Mass ratio] 1.0 {ratio} Normal [facility] Comment on above: Performed By: #### L IPID, BMP, LIVER #### [facility] [address] [address] [address] Shama Naylor ALP [Catalytic activity/Vol] 61 U/L Normal 46-116 [facility] Comment on above: Performed By: #### L IPID, BMP, LIVER #### [facility] [address] [address] [address] Shama Naylor ALT [Catalytic activity/Vol] 38 U/L Normal 16-63 [facility] Comment on above: Performed By: #### L IPID, BMP, LIVER #### [facility] [address] [place] [address] Dr. Shama Naylor AST [Catalytic activity/Vol] 14 U/L Critically low 15-37 [facility] Comment on above: Performed By: #### L IPID, BMP, LIVER #### [facility] [address] [place] [address] Dr. Shama Naylor BILI, CONJUGATED 0.1 mg/dL Normal 0.0-0.2 [facility] Comment on above: Performed By: #### L IPID, BMP, LIVER #### [facility] [address] [place] [address] Dr. Shama Naylor Bilirubin [Mass/Vol] 0.4 mg/dL Normal 0.2-1.0 [facility] Comment on above: Performed By: #### L IPID, BMP, LIVER #### [facility] [address] [place] [address] Dr. Shama Naylor Globulin (S) [Mass/Vol] 3.3 g/dL Normal [facility] Comment on above: Performed By: #### L IPID, BMP, LIVER #### [facility] [address] [place] [address] Dr. Shama Naylor Protein [Mass/Vol] 6.6 g/dL Normal 6.4-8.[address] [facility] Comment on above: Performed By: #### L IPID, BMP, LIVER #### [facility] [address] [place] [address] Dr. Shama Naylor PROF CHEM 8 (BAS METB)on Anion gap [Moles/Vol] 9.6 mmol/L Normal [facility] Comment on above: Performed By: #### L IPID, BMP, LIVER #### [facility] [address] [place] [address] Dr. Shama Naylor Calcium [Mass/Vol] 8.8 mg/dL Normal 8.5-10.[address] [facility] Comment on above: Performed By: #### L IPID, BMP, LIVER #### [facility] [address] [place] [address] Dr. Shama Naylor Chloride [Moles/Vol] 107 mmol/L Normal 98-107 [facility] Comment on above: Performed By: #### L IPID, BMP, LIVER #### [facility] [address] [address] [address] Shama Naylor CO2 [Moles/Vol] 28.3 mmol/L Normal 21.0-32.0 [facility] Comment on above: Performed By: #### L IPID, BMP, LIVER #### [facility] [address] [address] [address] Shama Naylor Creatinine [Mass/Vol] 1.03 mg/dL Normal 0.70-1.30 [facility] Comment on above: Performed By: #### L IPID, BMP, LIVER #### [facility] [address] [address] [address] Shama Naylor EGFR-AF UKRAINIAN >60 Normal >=60 [facility] Comment on above: Performed By: #### L IPID, BMP, LIVER #### [facility] [address] [place] [address] Dr. Shama Naylor EGFR-NON AF UKRAINIAN >60 Normal >=60 [facility] Comment on above: Performed By: #### L IPID, BMP, LIVER #### [facility] [address] [address] [address] Shama Naylor Glucose [Mass/Vol] 103 mg/dL Normal 74-[address] [facility] Comment on above: Performed By: #### L IPID, BMP, LIVER #### [facility] [address] [address] [address] Shama Naylor Potassium [Moles/Vol] 3.9 mmol/L Normal 3.5-5.1 [facility] Comment on above: Performed By: #### L IPID, BMP, LIVER #### [facility] [address] [address] [address] Shama Naylor Sodium [Moles/Vol] 141 mmol/L Normal 136-[address] [facility] Comment on above: Performed By: #### L IPID, BMP, LIVER #### [facility] [address] [place], [place] [address] Dr. Shama Naylor Urea nitrogen [Mass/Vol] 14.0 mg/dL Normal 7.0-18.0 [facility] Comment on above: Performed By: #### L IPID, BMP, LIVER #### [facility] [address] [place], [place] [address] Dr. Shama Naylor Urea nitrogen/Creatinin e [Mass ratio] 13.6 mg/mg Normal [facility] Comment on above: Performed By: #### L IPID, BMP, LIVER #### [facility] [address] [place], [place] [address] Dr. Shama Naylor Office Visit (Cardiology)on 02-11-2022 Follow-up visit Diagnoses/Problems Assessed Paroxysmal SVT (supraventricular tachycardia) (427.0) (I47.1) Hypertension (401.9) (I10) HLD (hyperlipidemia) (272.4) (E78.5) Morbid obesity with BMI of 40.0-44.9, adult (278.01,V85.41) (E66.01,Z68.41) Former smoker (V15.82) (Z87.891) Quit in 1970s Orders Morbid obesity with BMI of 40.0-44.9, adult Healthy Weight Tips; Status:Complete; Done: [id number] Some eating tips that can help you lose weight.; Status:Complete; Done: [id number] Paroxysmal SVT (supraventricular tachycardia) IO EKG Electrocardiogram- 12 Lead; Status:Complete; Done: [id number] SocHx: Former smoker Tobacco Use Screening; Status:Complete; Done: [id number] Patient Instructions Please bring all medicines, vitamins, [...] negative for complaint. Vitals Vital Signs Recorded: [id number] 11:05AM Heart Rate73, Apical Xgxjvolu425, LUE, Sitting Qqgcfkans10, LUE, Sitting Height6 ft 2 in Ldldnz374 lb BMI Fyadqothlo17.57 kg/m2 BSA Calculated2.64 Tobacco Useb) No PHQ-2 [...] Feb 11 2022 5:56PM EST (Author) Normal [facility] Tobacco Screening.on Adult depression screening assessment No [employer] [facility] [employer] 250 DO Work Phone: Fall risk assessment a) No falls within the last year [facility] [employer] 250 DO Work Phone: Tobacco use status [facility] b) No [facility] [employer] 250 DO Work Phone: Falls Risk Screeningon 08-12 Fall risk assessment a) No falls within the last year [facility] [employer] 250 DO Work Phone: Office Visit (Cardiology)on [...] Weight Tips; Status:Complete - Retrospective Authorization; Done: [id number] SocHx: Former smoker Tobacco Use Screening; Status:Complete; Done: 11Ohs0098 Unlinked Stop: Aspirin 81 MG Oral Tablet Delayed Release Patient Instructions By signing my name below, I, Shiloh Hernandez LPN ,Efe, attest that this documentation has been prepared [...] negative for complaint. Vitals Vital Signs Recorded: [id number] 01:46PM Heart Rate72, R Radial Kngloiyj532, RUE, Sitting Rfuadjdjv72, RUE, Sitting Height6 ft 2 in Manayb957 lb BMI Rtspimjynr93.67 kg/m2 BSA Calculated2.61 Tobacco Useb) No Fall [...] Feb 15 2021 5:53PM EST (Author) Normal [facility] Tobacco Screening.on 021 Fall risk assessment a) No falls within the last year [facility] [employer] 250 DO Work Phone: Tobacco use status [facility] b) No [facility] 250 DO Work Phone: [facility] CARDIAC STRESS/REST INJE CTIONon 11-29-2019 [facility] CARDIAC STRESS/REST INJECTION Patient Name: LUIS LUIS STUDY: MYOCARDIAL PERFUSION STRESS TEST WITH LEXISCAN Performing facility: [facility], [address] [place] [address], [address], [place] [address] [facility] Provider: Mary Tam RN, LACTATION COORDINATOR PCP: Dr. Julianna Brewer Supervising provider: Sunday Rai DO, [facility] INDICATION: Chest Pain; HISTORY: Gender: M; Age: 69 y/o ; Height: 187.96 cm; Weight: 597.0607447 kg. High Cholesterol; HTN; Palpitations; Chest Pain; SOB; Quit smoking 40 years ago. COMPARISON: No comparison. ACCESSION NUMBER(S): [id number]; [id number]; [id number] ORDERING CLINICIAN: MARY TAM TECHNIQUE: TWO DAY [...] Electronically signed by: JAMIL JARRELL MD Normal [facility] Vital Signs Date Time Vital Sign Value Performing Clinician Facility 04-12-2024 13:54-0500 Body temperature 97 [degF] SARAVANAN Butler MD Work Phone: [facility] 04-12-2024 13:54-0500 Body weight 146.1 kg SARAVANAN Butler MD Work Phone: [facility] 04-12-2024 13:54-0500 Diastolic blood pressure 82 mm[Hg] SARAVANAN Butler MD Work Phone: [facility] 04-12-2024 13:54-0500 Heart rate 70 /min SARAVANAN Butler MD Work Phone: [facility] 04-12-2024 13:54-0500 Respiratory rate 18 /min SARAVANAN Butler MD Work Phone: [facility] 04-12-2024 13:54-0500 SaO2% (BldA) [Mass fraction] 98 % NA Lennox DELGADO Work Phone: [facility] 04-12-2024 13:54-0500 Systolic blood pressure 133 mm[Hg] SARAVANAN Butler MD Work Phone: [facility] 03-23-2024 09:08-0500 Body height 188 cm Kevin Brewer MD Work Phone: [facility] 03-23-2024 09:08-0500 Body mass index (BMI) [Ratio] 41.6 kg/m2 Kevin Brewer MD Work Phone: [facility] 03-23-2024 09:08-0500 Body temperature 97.3 [degF] Kevin Brewer MD Work Phone: [facility] 03-23-2024 09:08-0500 Body weight 146.97 kg Kevin Brewer MD Work Phone: [facility] 03-23-2024 09:08-0500 Diastolic blood pressure 68 mm[Hg] Kevin Brewer MD Work Phone: [facility] 03-23-2024 09:08-0500 Heart rate 90 /min Kevin Brewer MD Work Phone: [facility] 03-23-2024 09:08-0500 Respiratory rate 18 /min Kevin Brewer MD Work Phone: [facility] 03-23-2024 09:08-0500 SaO2% (BldA) [Mass fraction] 95 % Kevin Brewer MD Work Phone: [facility] 03-23-2024 09:08-0500 Systolic blood pressure 136 mm[Hg] Kevin Brewer MD Work Phone: [facility] 03-08-2024 08:56-0500 Body height 188 cm Mary Tma INVENTORY CLERK-LACTATION COORDINATOR Work Phone: [facility] 03-08-2024 08:56-0500 Body mass index (BMI) [Ratio] 41.09 kg/m2 Mary Tam INVENTORY CLERK-LACTATION COORDINATOR Work Phone: [facility] 03-08-2024 08:56-0500 Body weight 145.15 kg Mary Tam INVENTORY CLERK-LACTATION COORDINATOR Work Phone: [facility] 03-08-2024 08:56-0500 Diastolic blood pressure 80 mm[Hg] Mary Tam INVENTORY CLERK-LACTATION COORDINATOR Work Phone: [facility] 03-08-2024 08:56-0500 Heart rate 68 /min Mary Yonatan INVENTORY CLERK-LACTATION COORDINATOR Work Phone: [facility] 03-08-2024 08:56-0500 Systolic blood pressure 136 mm[Hg] Mary Tam INVENTORY CLERK-LACTATION COORDINATOR Work Phone: [facility] 02-17-2024 13:36-0500 Body height 188 cm Kevin Brewer MD Work Phone: [facility] 02-17-2024 13:36-0500 Body mass index (BMI) [Ratio] 40.83 kg/m2 Kevin Brewer MD Work Phone: [facility] 02-17-2024 13:36-0500 Body temperature 97.11 [degF] Kevin Brewer MD Work Phone: [facility] 02-17-2024 13:36-0500 Body weight 144.24 kg Kevin Brewer MD Work Phone: [facility] 02-17-2024 13:36-0500 Diastolic blood pressure 72 mm[Hg] Kevin Brewer MD Work Phone: [facility] 02-17-2024 13:36-0500 Heart rate 72 /min Kevin Brewer MD Work Phone: [facility] 02-17-2024 13:36-0500 Respiratory rate 18 /min Kevin Brewer MD Work Phone: [facility] 02-17-2024 13:36-0500 SaO2% (BldA) [Mass fraction] 95 % Kevin Brewer MD Work Phone: [facility] 02-17-2024 13:36-0500 Systolic blood pressure 144 mm[Hg] Kevin Brewer MD Work Phone: [facility] 12-21-2023 08:54-0400 Body height 188 cm Kevin Brewer MD Work Phone: [facility] 12-21-2023 08:54-0400 Body mass index (BMI) [Ratio] 40.19 kg/m2 Kevin Brewer MD Work Phone: [facility] 12-21-2023 08:54-0400 Body temperature 96.6 [degF] Kevin Brewer MD Work Phone: [facility] 12-21-2023 08:54-0400 Body weight 141.98 kg Kevin Brewer MD Work Phone: [facility] 12-21-2023 08:54-0400 Diastolic blood pressure 84 mm[Hg] Kevin Brewer MD Work Phone: [facility] 12-21-2023 08:54-0400 Heart rate 87 /min Kevin Brewer MD Work Phone: [facility] 12-21-2023 08:54-0400 Respiratory rate 20 /min Kevin Brewer MD Work Phone: [facility] 12-21-2023 08:54-0400 SaO2% (BldA) [Mass fraction] 94 % Kevin Brewer MD Work Phone: [facility] 12-21-2023 08:54-0400 Systolic blood pressure 150 mm[Hg] Kevin Brewer MD Work Phone: [facility] 12-02-2023 13:42-0400 Body height 188 cm Naida Padillamor CHAIR LIFT OPERATOR Work Phone: [facility] 12-02-2023 13:42-0400 Body mass index (BMI) [Ratio] 40.06 kg/m2 Naida Padillamor CHAIR LIFT OPERATOR Work Phone: [facility] 12-02-2023 13:42-0400 Body weight 141.52 kg Naida Padillamor CHAIR LIFT OPERATOR Work Phone: [facility] 12-02-2023 13:42-0400 Diastolic blood pressure 92 mm[Hg] Naida Padillamor CHAIR LIFT OPERATOR Work Phone: [facility] 12-02-2023 13:42-0400 Heart rate 75 /min Naida Batistar CHAIR LIFT OPERATOR Work Phone: [facility] 12-02-2023 13:42-0400 Systolic blood pressure 148 mm[Hg] Naida Padillamor CHAIR LIFT OPERATOR Work Phone: [facility] 10-28-2023 10:12-0400 Body height 188 cm Franchesca Nj DO Work Phone: [facility] 10-28-2023 10:12-0400 Body mass index (BMI) [Ratio] 41.6 kg/m2 Franchescatiarra Nj DO Work Phone: [facility] 10-28-2023 10:12-0400 Body weight 146.97 kg Franchesca Nj DO Work Phone: [facility] 10-28-2023 10:12-0400 Diastolic blood pressure 80 mm[Hg] Franchesca Ondina DO Work Phone: [facility] 10-28-2023 10:12-0400 Heart rate 76 /min Franchesca Ondina DO Work Phone: [facility] 10-28-2023 10:12-0400 Respiratory rate 20 /min Franchesca Ondina DO Work Phone: [facility] 10-28-2023 10:12-0400 SaO2% (BldA) [Mass fraction] 94 % Franchesca Ondina DO Work Phone: [facility] 10-28-2023 10:12-0400 Systolic blood pressure 142 mm[Hg] Franchesca Nj DO Work Phone: [facility] 04-07-2023 13:06-0500 Body temperature 97.9 [degF] SARAVANAN Butler MD Work Phone: [facility] 04-07-2023 13:06-0500 Body weight 149.2 kg SARAVANAN Butler MD Work Phone: [facility] 04-07-2023 13:06-0500 Diastolic blood pressure 83 mm[Hg] SARAVANAN Butler MD Work Phone: [facility] 04-07-2023 13:06-0500 Heart rate 80 /min SARAVANAN Butler MD Work Phone: [facility] 04-07-2023 13:06-0500 Respiratory rate 16 /min SARAVANAN Butler MD Work Phone: [facility] 04-07-2023 13:06-0500 SaO2% (BldA) [Mass fraction] 96 % SARAVANAN Butler MD Work Phone: [facility] 04-07-2023 13:06-0500 Systolic blood pressure 139 mm[Hg] SARAVANAN Butler MD Work Phone: [facility] 02-10-2023 11:10-0500 Body height 188 cm Parveen Santo MD Work Phone: [facility] 02-10-2023 11:10-0500 Body mass index (BMI) [Ratio] 41.6 kg/m2 Parveen Santo MD Work Phone: [facility] 02-10-2023 11:10-0500 Body weight 146.97 kg Parveen Santo MD Work Phone: [facility] 02-10-2023 11:10-0500 Diastolic blood pressure 84 mm[Hg] Parveen Santo MD Work Phone: [facility] 02-10-2023 11:10-0500 Heart rate 67 /min Parveen Santo MD Work Phone: [facility] 02-10-2023 11:10-0500 Systolic blood pressure 132 mm[Hg] Parveen Santo MD Work Phone: [facility] 09-30-2022 13:55-0400 Body temperature 96.69 [degF] SARAVANAN Butler MD Work Phone: [facility] 09-30-2022 13:55-0400 Body weight 144.97 kg SARAVANAN Butler MD Work Phone: [facility] 09-30-2022 13:55-0400 Diastolic blood pressure 85 mm[Hg] SARAVANAN Butler MD Work Phone: [facility] 09-30-2022 13:55-0400 Heart rate 92 /min SARAVANAN Butler MD Work Phone: [facility] 09-30-2022 13:55-0400 Respiratory rate 18 /min SARAVANAN Butler MD Work Phone: [facility] 09-30-2022 13:55-0400 SaO2% (BldA) [Mass fraction] 94 % SARAVANAN Butler MD Work Phone: [facility] 09-30-2022 13:55-0400 Systolic blood pressure 143 mm[Hg] SARAVANAN Butler MD Work Phone: [facility] 09-08-2022 10:50-0400 Blood Pressure Location Yin HAWK [facility] 09-08-2022 10:50-0400 Diastolic blood pressure 73 mm[Hg] Yin HAWK [facility] 09-08-2022 10:50-0400 Heart rate 72 /min Yin HAWK [facility] 09-08-2022 10:50-0400 Respiratory rate 16 /min Yin HAWK [facility] 09-08-2022 10:50-0400 Systolic blood pressure 132 mm[Hg] Yin HAWK [facility] 04-01-2022 14:41-0500 Body temperature 97.2 [degF] SARAVANAN Butler MD Work Phone: [facility] 04-01-2022 14:41-0500 Body weight 142.79 kg NA Lennox DELGADO Work Phone: [facility] 04-01-2022 14:41-0500 Diastolic blood pressure 90 mm[Hg] SARAVANAN Butler MD Work Phone: [facility] 04-01-2022 14:41-0500 Heart rate 82 /min SARAVANAN Butler MD Work Phone: [facility] 04-01-2022 14:41-0500 Respiratory rate 18 /min SARAVANAN Butler MD Work Phone: [facility] 04-01-2022 14:41-0500 SaO2% (BldA) [Mass fraction] 98 % SARAVANAN Butler MD Work Phone: [facility] 04-01-2022 14:41-0500 Systolic blood pressure 159 mm[Hg] SARAVANAN Butler MD Work Phone: [facility] 03-21-2022 11:25-0500 Blood Pressure Location Yin HAWK [facility] 03-21-2022 11:25-0500 Diastolic blood pressure 80 mm[Hg] Yin HAWK [facility] 03-21-2022 11:25-0500 Heart rate 76 /min Yin HAWK [facility] 03-21-2022 11:25-0500 Respiratory rate 16 /min Yin HAWK [facility] 03-21-2022 11:25-0500 Systolic blood pressure 138 mm[Hg] Yin HAWK [facility] 02-11-2022 11:05-0500 Body height 187.96 cm Kevin Scott Naderer Work Phone: [facility] 250 DO Work Phone: 02-11-2022 11:05-0500 Body mass index (BMI) [Ratio] 40.57 kg/m2 eKvin Scott Naderer Work Phone: [facility] 250 DO Work Phone: 02-11-2022 11:05-0500 Body surface area Derived from formula 2.64 m2 Kevin Scott Naderer Work Phone: [facility] 250 DO Work Phone: 02-11-2022 11:05-0500 Body weight 143.34 kg Kevin Scott Naderer Work Phone: [facility] 250 DO Work Phone: 02-11-2022 11:05-0500 Diastolic blood pressure 78 mm[Hg] Kevin Scott Naderer Work Phone: [facility] 250 DO Work Phone: 02-11-2022 11:05-0500 Heart rate 73 /min Kevin Scott Naderer Work Phone: [facility] 250 DO Work Phone: 02-11-2022 11:05-0500 Systolic blood pressure 132 mm[Hg] Kevin Scott Naderer Work Phone: [facility] 250 DO Work Phone: 09-30-2021 10:54-0400 Blood Pressure Location Yin HAWK [facility] 09-30-2021 10:54-0400 Diastolic blood pressure 84 mm[Hg] Yin HAWK [facility] 09-30-2021 10:54-0400 Heart rate 75 /min Yin HAWK [facility] 09-30-2021 10:54-0400 Respiratory rate 16 /min Yin HAWK [facility] 09-30-2021 10:54-0400 Systolic blood pressure 136 mm[Hg] Yin HAWK [facility] 08-14-2021 09:47-0400 Body temperature 96.69 [degF] SARAVANAN Butler MD Work Phone: [facility] 08-14-2021 09:47-0400 Body weight 141.98 kg SARAVANAN Butler MD Work Phone: [facility] 08-14-2021 09:47-0400 Diastolic blood pressure 82 mm[Hg] SARAVANAN Butler MD Work Phone: [facility] 08-14-2021 09:47-0400 Heart rate 82 /min SARAVANAN Butler MD Work Phone: [facility] 08-14-2021 09:47-0400 Respiratory rate 20 /min SARAVANAN Butler MD Work Phone: [facility] 08-14-2021 09:47-0400 SaO2% (BldA) [Mass fraction] 94 % SARAVANAN Butler MD Work Phone: [facility] 08-14-2021 09:47-0400 Systolic blood pressure 131 mm[Hg] SARAVANAN Butler MD Work Phone: [facility] 08-12-2021 10:15-0400 Body height 187.96 cm Kevin Scott Naderer Work Phone: [facility] 250 DO Work Phone: 08-12-2021 10:15-0400 Body mass index (BMI) [Ratio] 39.93 kg/m2 Kevin Scott Naderer Work Phone: [facility] 250 DO Work Phone: 08-12-2021 10:15-0400 Body surface area Derived from formula 2.62 m2 Kevin Scott Naderer Work Phone: [facility] 250 DO Work Phone: 08-12-2021 10:15-0400 Body weight 141.07 kg Kevin Scott Naderer Work Phone: [facility] 250 DO Work Phone: 08-12-2021 10:15-0400 Diastolic blood pressure 80 mm[Hg] Kevin Scott Naderer Work Phone: [facility] 250 DO Work Phone: 08-12-2021 10:15-0400 Heart rate 69 /min Kevin Scott Naderer Work Phone: [facility] 250 DO Work Phone: 08-12-2021 10:15-0400 Systolic blood pressure 130 mm[Hg] Kevin Scott Naderer Work Phone: [facility] 250 DO Work Phone: 08-09-2021 09:42-0400 Blood Pressure Location Yin HAWK [facility] 08-09-2021 09:42-0400 Diastolic blood pressure 80 mm[Hg] Yin HAWK [facility] 08-09-2021 09:42-0400 Heart rate 75 /min Yin HAWK [facility] 08-09-2021 09:42-0400 Respiratory rate 16 /min Yin HAWK [facility] 08-09-2021 09:42-0400 Systolic blood pressure 134 mm[Hg] Yin HAWK [facility] 02-15-2021 13:46-0500 Body height 187.96 cm Kevin Scott Naderer Work Phone: [facility] 250 DO Work Phone: 02-15-2021 13:46-0500 Body mass index (BMI) [Ratio] 39.67 kg/m2 Kevin Scott Naderer Work Phone: [facility] 250 DO Work Phone: 02-15-2021 13:46-0500 Body surface area Derived from formula 2.61 m2 Kevin Scott Naderer Work Phone: [facility] 250 DO Work Phone: 02-15-2021 13:46-0500 Body weight 140.16 kg Kevin A Naderer Work Phone: [facility] 250 DO Work Phone: 02-15-2021 13:46-0500 Diastolic blood pressure 80 mm[Hg] Kevin Brewer Work Phone: [facility] 250 DO Work Phone: 02-15-2021 13:46-0500 Heart rate 72 /min Kevin Brewer Work Phone: [facility] 250 DO Work Phone: 02-15-2021 13:46-0500 Systolic blood pressure 118 mm[Hg] Kevin Brewer Work Phone: [facility] 250 DO Work Phone: Encounters Encounter Date Encounter Type Care Provider Facility Start: 05-13-2024 ambulatory Yin Cain ty:UCHE Soria Start: 04-12-2024 End: 04-12-2024 ambulatory Demond BUTLER Facility:[facility] Start: 04-12-2024 End: 04-12-2024 Office outpatient visit 10 minutes Demond Butler MD Work Phone: [facility] Comment on above: Malignant neoplasm o f prostate (HCC) (Primary Dx) Start: 03-23-2024 End: 03-23-2024 Bamboo flowsheet Kevin Brewer MD Work Phone: [facility] Start: 03-23-2024 End: 03-23-2024 Bamboo flowsheet Kevin Brewer MD Work Phone: [facility] Start: 03-23-2024 End: 03-23-2024 Clinisync Result Encounter Generic External Data Provider [facility] External Department Unsolicited Start: 03-23-2024 End: 03-23-2024 Patient encounter procedure Kevin Brewer MD Work Phone: [facility] Work Phone: Start: 03-23-2024 End: 03-23-2024 Postop follow up visit related to original px Kevin Brewer MD Work Phone: [facility] Comment on above: Medicare annual well ness visit, subsequent (Primary Dx); Paroxysmal SVT (supraventricular tachycardia) (CMS/HCC); Prostate cancer (CMS/HCC) Start: 03-23-2024 End: 03-23-2024 ambulatory KEVIN BREWER Not Available Start: 03-14-2024 End: 03-14-2024 ambulatory Shantelle Ornelas MD Facility:[facility] Start: 03-08-2024 End: 03-08-2024 Office outpatient visit 25 minutes [facility] INVENTORY CLERK-LACTATION COORDINATOR Work Phone: [facility] Comment on above: Malignant neoplasm o f prostate (Multi) (Primary Dx); Paroxysmal SVT (supraventricular tachycardia) (CMS-HCC); Body mass index (BMI) 40.0-44.9, adult (Multi); High risk medication use; Mixed hyperlipidemia; Primary hypertension; Bifascicular block; Morbid obesity with BMI of 40.0-44.9, adult (Multi); Obstructive sleep apnea syndrome Start: 03-08-2024 End: 03-08-2024 ambulatory [facility] Ambulatory Start: 02-22-2024 End: 02-22-2024 ambulatory Dayna Pulido AUDIT CLERKS SUPERVISOR Work Phone: [facility] Comment on above: Lumbar radiculopathy (Primary Dx); Chronic right-sided low back pain with right-sided sciatica Start: 02-17-2024 End: 02-17-2024 Office outpatient visit 15 minutes Kevin Brewer MD Work Phone: [facility] Comment on above: Chronic right hip pa in (Primary Dx); Degeneration of intervertebral disc of lumbar region with discogenic back pain and lower extremity pain Start: 02-17-2024 End: 02-17-2024 ambulatory Dayna Pulido AUDIT CLERKS SUPERVISOR Work Phone: [facility] Comment on above: Lumbar radiculopathy (Primary Dx); Chronic right-sided low back pain with right-sided sciatica Start: 02-15-2024 End: 02-15-2024 Bamboo flowsheet Dayna Pulido AUDIT CLERKS SUPERVISOR Work Phone: [facility] Start: 02-15-2024 End: 02-15-2024 Bamboo flowseve Pulido AUDIT CLERKS SUPERVISOR Work Phone: [facility] Start: 02-15-2024 End: 02-15-2024 ambulatory Dayna Pulido AUDIT CLERKS SUPERVISOR Work Phone: [facility] Comment on above: Lumbar radiculopathy (Primary Dx); Chronic right-sided low back pain with right-sided sciatica Start: 02-10-2024 End: 02-10-2024 Bamboo flowseve Pulido AUDIT CLERKS SUPERVISOR Work Phone: [facility] Start: 02-10-2024 End: 02-10-2024 Bamboo flowsheet Dayna Pulido AUDIT CLERKS SUPERVISOR Work Phone: [facility] Start: 02-10-2024 End: 02-10-2024 ambulatory Dayna Pulido AUDIT CLERKS SUPERVISOR Work Phone: [facility] Comment on above: Lumbar radiculopathy (Primary Dx); Chronic right-sided low back pain with right-sided sciatica Start: 02-08-2024 End: 02-08-2024 Bamboo flowseve Pulido AUDIT CLERKS SUPERVISOR Work Phone: [facility] Start: 02-08-2024 End: 02-08-2024 Bamboo moi Pulido AUDIT CLERKS SUPERVISOR Work Phone: [facility] Start: 02-08-2024 End: 02-08-2024 ambulatory Dayna Pulido AUDIT CLERKS SUPERVISOR Work Phone: [facility] Comment on above: Lumbar radiculopathy (Primary Dx); Chronic right-sided low back pain with right-sided sciatica Start: 02-05-2024 End: 02-05-2024 Bamboo flowsheet Cheryl Kelbley AUDIT CLERKS SUPERVISOR [facility] Start: 02-05-2024 End: 02-05-2024 Bamboo flowsheet Cheryl Kelbley AUDIT CLERKS SUPERVISOR [facility] Start: 02-05-2024 End: 02-05-2024 ambulatory Cheryl Kelbley AUDIT CLERKS SUPERVISOR [facility] Comment on above: Lumbar radiculopathy (Primary Dx); Chronic right-sided low back pain with right-sided sciatica Start: 02-03-2024 End: 02-03-2024 Bamboo flowsheet Dayna Pulido AUDIT CLERKS SUPERVISOR Work Phone: [facility] Start: 02-03-2024 End: 02-03-2024 Bamboo flowsheet Dayna Pulido AUDIT CLERKS SUPERVISOR Work Phone: [facility] Start: 02-03-2024 End: 02-03-2024 ambulatory Dayna Pulido AUDIT CLERKS SUPERVISOR Work Phone: [facility] Comment on [...] 01-25-2024 End: 01-25-2024 Bamboo flowsheet Dayna Pulido AUDIT CLERKS SUPERVISOR Work Phone: [facility] Start: 01-25-2024 End: 01-25-2024 Bamboo flowsheet Dayna Pulido AUDIT CLERKS SUPERVISOR Work Phone: [facility] Start: 01-25-2024 End: 01-25-2024 ambulatory Dayna Pulido AUDIT CLERKS SUPERVISOR Work Phone: [facility] Comment on above: Lumbar radiculopathy (Primary Dx); Chronic right-sided low back pain with right-sided sciatica Start: 01-21-2024 End: 01-21-2024 Bamboo flowsheet Dayna Pulido AUDIT CLERKS SUPERVISOR Work Phone: [facility] Start: 01-21-2024 End: 01-21-2024 Bamboo flowsheet Dayna Pulido AUDIT CLERKS SUPERVISOR Work Phone: [facility] Start: 01-21-2024 End: 01-21-2024 ambulatory Dayna Pulido AUDIT CLERKS SUPERVISOR Work Phone: [facility] Comment on above: Lumbar radiculopathy (Primary Dx); Chronic right-sided low back pain with right-sided sciatica Start: 01-20-2024 End: 01-20-2024 Bamboo flowsheet Franchesca J Marina PT Work Phone: [facility] Start: 01-20-2024 End: 01-20-2024 Bamboo flowsheet Franchesca J Marina PT Work Phone: [facility] Start: 01-20-2024 End: 01-20-2024 ambulatory Franchesca Rushing Marina PT Work Phone: [...] flowsheet Kevin Brewer MD Work Phone: [facility] Start: 12-21-2023 End: 12-21-2023 ambulatory KEVIN BREWER Not Available Start: 12-21-2023 End: 12-21-2023 Office outpatient visit 25 minutes Kevin Brewer MD Work Phone: [facility] Comment on above: Essential hypertensi on, benign (CMS/HCC) (Primary Dx); Lumbar radiculopathy; Chronic right-sided low back pain with right-sided sciatica; Bilateral leg edema; SVT (supraventricular tachycardia) (CMS/HCC) Start: 12-03-2023 End: 12-03-2023 Clinisync Result Encounter Generic External Data Provider [facility] External Department Unsolicited Start: 12-03-2023 End: 12-03-2023 Clinisync Result Encounter Generic External Data Provider [facility] External Department Unsolicited Start: 12-02-2023 End: 12-02-2023 Bamboo flowsheet Naida Hobson CHAIR LIFT OPERATOR Work Phone: [facility] Start: 12-02-2023 End: 12-02-2023 Bamboo flowsheet Naida Hobson CHAIR LIFT OPERATOR Work Phone: [facility] Start: 12-02-2023 End: 12-02-2023 ambulatory NAIDA HOBSON Not Available Start: 12-02-2023 End: 12-02-2023 Office outpatient visit 25 minutes Naida Hobson CHAIR LIFT OPERATOR Work Phone: [facility] Comment on above: Morbid obesity due t o excess calories (CMS/HCC) (Primary Dx); RENAE on CPAP; Hypoxia; Snoring; Daytime hypersomnolence Start: 11-17-2023 End: 11-17-2023 ambulatory Franchesca Nj [facility] Work Phone: Start: 11-17-2023 End: 11-17-2023 Departed Referred DO Franchesca Nj Work Phone: [facility] Start: 10-28-2023 End: 10-28-2023 Bamboo flowsheet Franchesca Nj DO Work Phone: [facility] Start: 10-28-2023 End: 10-28-2023 Bamboo flowsheet Franchesca Nj DO Work Phone: [facility] Start: 10-28-2023 End: 10-28-2023 Patient encounter procedure Franchesca Nj DO Work Phone: [facility] Comment on above: Encounter for screen ing colonoscopy (Primary Dx) Start: 10-28-2023 End: 10-28-2023 ambulatory FRANCHESCA NJ Not Available Start: 07-13-2023 End: 07-13-2023 ambulatory FRANCHESCA [place] Not Available Start: 06-29-2023 End: 06-29-2023 ambulatory KEVIN BREWER Not Available Start: 05-11-2023 End: 05-12-2023 ambulatory Yin HAWK Facility: [facility] Start: 05-11-2023 End: 05-11-2023 Patient encounter procedure Yin HAWK [facility] Start: 04-07-2023 End: 04-07-2023 Patient encounter procedure Demond Butler MD Work Phone: Radiation Oncology Comment on above: Malignant neoplasm o f prostate (HCC) (Primary Dx) Start: 02-10-2023 End: 02-10-2023 Office outpatient visit 25 minutes Parveen Santo MD Work Phone: [facility] Comment on above: Paroxysmal SVT (supr aventricular tachycardia) (Primary Dx); Primary hypertension; Mixed hyperlipidemia; Morbid obesity with BMI of 40.0-44.9, adult (CMS/HCC); Bifascicular block Start: 09-30-2022 End: 09-30-2022 Patient encounter procedure Demond Butler MD Work Phone: Radiation Oncology Comment on above: Malignant neoplasm o f prostate (HCC) (Primary Dx) Start: 09-08-2022 End: 09-09-2022 ambulatory Yin HAWK Facility:[facility] Start: 09-08-2022 End: 09-08-2022 Patient encounter procedure Yin HAWK [facility] Start: 07-25-2022 Rx Renewal Kevin Brewer Work Phone: [facility] 250 DO Work Phone: Start: 07-02-2022 End: 07-03-[address] KEVIN BREWER Facility: Start: 04-07-2022 Rx Renewal Kevin Brewer Work Phone: [facility] 250 DO Work Phone: Start: 04-01-2022 End: 04-01-2022 ambulatory Yancy Oneill APRN.LACTATION COORDINATOR Work Phone: Hematology/Oncology Comment on above: Prostate cancer (HCC ) Start: 04-01-2022 End: 04-01-2022 Patient encounter procedure Yancy Oneill APRN.LACTATION COORDINATOR Work Phone: [facility] Comment on above: Malignant neoplasm o f prostate (HCC) (Primary Dx) Start: 03-21-2022 End: 03-21-2022 Patient encounter procedure Yin HAWK [facility] Start: 03-11-2022 End: 03-12-[address] KEVIN BREWER Facility:[facility] Start: 02-11-2022 ambulatory Parveen Santo II Facility: Start: 02-11-2022 Office outpatient vi sit 15 minutes Kevin Brewer Work Phone: [facility] 250 DO Work Phone: Start: 02-05-2022 Telephone encounter G Chavez Butler MD Work Phone: Radiation Oncology Comment on above: Future Appointment Start: 01-14-2022 [facility] Work Phone: Start: 09-30-2021 End: 09-30-2021 Patient encounter procedure Yin HAWK [facility] Start: 09-23-2021 End: 09-24-[address] KEVIN BRWEER Facility: Start: 08-14-2021 End: 08-14-2021 Patient encounter procedure Demond Butler MD Work Phone: Radiation Oncology Comment on above: Malignant neoplasm o f prostate (HCC) (Primary Dx) Start: 08-12-2021 Patient encounter procedure Kevin Brewer Work Phone: [facility] [employer] DO Work Phone: Start: 08-12-2021 ambulatory Parveen Santo II Facility: Start: 08-09-2021 End: 08-09-2021 Patient encounter procedure Yin HAWK [facility] Start: 08-05-2021 Telephone encounter G Chavez Butler MD Work [...] procedure Abdulaziz DAWSON [facility] Start: 06-27-2021 End: 06-28-2021 Patient [...] 04-26-2021 Rx Renewal Kevin Brewer Work Phone: [facility] 250 DO Work Phone: Start: 04-09-2021 End: 04-09-2021 Subsequent hospital visit by physician Demond Butler MD Work Phone: Radiology Pet [facility] Start: 02-15-2021 ambulatory Parveen Santo II Facility: Start: 02-15-2021 Office outpatient vi sit 15 minutes [facility] Work Phone: Start: 01-22-2021 Rx Renewal [facility] Work Phone: Procedures Date Procedure Procedure Detail Performing Clinician Start: 03-23-2024 PSA screening [facility] Provi kilo Start: 03-23-2024 MHPT PSA, DIAGNOSTIC Ge neric External Data Provider Start: 03-08-2024 Ecg routine ecg w/le ast 12 lds w/i&r Mary Tam INVENTORY CLERK-LACTATION COORDINATOR Work Phone: Start: 12-03-2023 MHPT PSA, DIAGNOSTIC Ge nerruss External Data Provider Start: 11-17-2023 Colonoscopy Naida Alcantar sarah CHAIR LIFT OPERATOR Work Phone: Start: 08-25-2023 Colonoscopy Franchesca Lowery tt DO Work Phone: Start: 03-31-2023 PSA screening [facility] Provi kilo Start: 02-10-2023 Ecg routine ecg w/le ast 12 lds w/i&r Parveen Santo MD Work Phone: Start: 08-29-2022 PSA screening [facility] Provi kilo Start: 03-11-2022 End: 03-11-2022 PSA screening [facility] Provider Comment on above: Performed By: #### P SAD #### [facility] [address] [place] [address] Dr. Shama Naylor Start: 09-23-[address] KEVIN BROOKS Comment on above: Performed By: #### P SAD #### [facility] [address] [address] [address] Shama Naylor Start: 07-16-2021 End: 07-16-2021 PSA screening [facility] Provider Comment on above: Performed By: #### P SAD #### [facility] [address] [place] [address] Dr. Shama Naylor Start: 06-27-2021 Brachytherapy Yin W ATERS Start: 03-14-2021 Transrectal biopsy o f prostate Abdulaziz RICE Arthroplasty of wrist Abdulaziz RICE Colonoscopy Abdulaziz RICE Surgical repair of u pper extremity Kevin Brewer Work Phone: Total colonoscopy Kevin lee Work Phone: Plan of Treatment Date Care Activity Detail Author Start: 09-17-2034 Screening for malign ant neoplasm of colon [facility] Start: 08-24-2033 Screening for malign ant neoplasm of colon [facility] Start: 2025 RSV Vaccine (1 - 1-d ose 75+ series) RSV Vaccine (1 - 1-dose 75+ series) [facility] Start: 04-18-2025 End: 04-18-2025 Patient encounter procedure 04/18/2025 1:15 PM EST Office Visit Radiation Oncology [address] [address] Demond Butler MD [address] [place] [address] 1 yr rv Radiation Oncology Comment on above: 1 yr rv Start: 04-12-2025 End: 07-12-2025 Prostate specific Ag [Mass/volume] in Serum or Plasma PROSTATE-SPECIFIC ANTIGEN DIAGNOSTIC Lab Routine Malignant neoplasm of prostate (HCC) Expected: 04/12/2025, Expires: 07/12/2025 [facility] Work Phone: Comment on above: Expected: 04/12/2025 , Expires: 07/12/2025 Start: 12-20-2024 Medicare Annual Well ness (AWV) Medicare Annual Wellness (AWV) [facility] Start: 09-20-2024 End: 09-20-2024 Patient encounter procedure 09/20/2024 9:00 AM EDT Office Visit [facility] [address] [place] [phone] Kevin Brewer MD [address] [place] [address] [facility] Start: 09-05-2024 End: 09-05-2024 Patient encounter procedure 09/05/2024 10:00 AM EDT Office Visit [facility] [address] [facility] [address] [place] [address] Esther Mejía MD [address] [facility] [address] [place], [place] [id number] [facility] Start: 04-05-2024 End: 04-05-2024 Patient encounter procedure 04/05/2024 1:15 PM EST Office Visit Radiation Oncology [address] [address] Demond Butler MD [address] [place] [address] [place] [address] 1 yr rv Radiation Oncology Comment on above: 1 yr rv Start: 03-23-2024 End: 03-23-2024 Patient encounter procedure [facility] Comment on above: Arrived Start: 03-08-2024 End: 03-08-2024 Patient encounter procedure 03/08/2024 9:00 AM EST Office Visit [facility] [address] [facility] [address] [place] [address] Parveen Santo MD [address] [facility] [address] [place] [address] [facility] Start: 03-02-2024 Advance Directive Discussion Advance Directive Discussion [facility] Start: 02-22-2024 End: 02-22-2024 ambulatory 02/22/2024 7:00 AM EST Treatment [facility] [address] [place] [address] Dayna Pulido, AUDIT CLERKS SUPERVISOR [address] [place] [address] [facility] Start: 02-17-2024 End: 02-16-2025 XR Hip - right 3 Views XR hip right 2 or 3 views Imaging Routine Chronic right hip pain Expected: 02/17/2024, Expires: 02/16/2025 [facility] Work Phone: Comment on above: Expected: 02/17/2024 , Expires: 02/16/2025 Start: 02-17-2024 End: 02-17-2024 Patient encounter procedure 02/17/2024 1:30 PM EST Office Visit [facility] [address] [place] [address] Kevin Brewer MD [address] [place] [address] [facility] Start: 02-17-2024 End: 02-17-2024 ambulatory 02/17/2024 9:00 AM EST Treatment [facility] [address] [place] [address] Dayna Pulido, AUDIT CLERKS SUPERVISOR [address] [place], [place] [phone] [facility] Start: 02-15-2024 End: 02-15-2024 [...] Treatment [facility] [address] [place] [phone] Franchesca Ram, PT [address] [place], [place] [id number] Arrived [facility] Comment on above: [...] 8:45 AM EDT Office Visit [facility] [address] [place] [phone] Kevin Brewer MD [address] [place] [phone] [facility] Start: 11-01-2023 COVID-19 Vaccine ( season) COVID-19 Vaccine ( season) [facility] Start: 11-01-2023 Covid-19 Vaccine ( season) Covid-19 Vaccine ( season) [facility] Start: 11-01-2023 Influenza vaccination Influenza Vacc ine (#1) [facility] Start: 10-28-2023 End: 10-28-2023 Patient encounter procedure 10/28/2023 10:00 AM EDT Office Visit [facility] [address] [place] [phone] Franchesca Nj DO [address] [place] [address] Arrived [facility] Comment on above: Arrived Start: 04-07-2023 End: 07-07-2023 Prostate specific Ag [Mass/volume] in Serum or Plasma PSA/PROSTSPECAG DIAG Lab Routine Malignant neoplasm of prostate (HCC) Expected: 04/07/2023, Expires: 07/07/2023 [facility] Work Phone: Comment on above: Expected: 04/07/2023 , Expires: 07/07/2023 Start: 04-02-2023 End: 06-02-2023 Prostate specific Ag [Mass/volume] in Serum or Plasma PSA/PROSTSPECAG DIAG Lab Routine Malignant neoplasm of prostate (HCC) Expected: 04/02/2023 (Approximate), Expires: 06/02/2023 [facility] Work Phone: Comment on above: Expected: 04/02/2023 (Approximate), Expires: 06/02/2023 Start: 03-02-2023 Advance Directive Discussion Advance Directive Discussion [facility] Start: 03-02-2023 Depression Assessment Depression Ass essment [facility] Start: 02-10-2023 FUV, Provider: Parveen Santo, Status: Pen, Time: 11:00 AM FUV, Provider: Parveen Santo, Status: Pen, Time: 11:00 AM [facility] [employer] 250 DO Work Phone: Start: 10-31-2022 Covid-19 Vaccine ( season) Covid-19 Vaccine ( season) [facility] Start: 10-31-2022 Influenza vaccination C [facility] Start: 03-02-2022 ADVANCE DIRECTIVE DISCUSSION ADVANCE DIRECTIVE DISCUSSION [facility] Start: 03-02-2022 DEPRESSION ASSESSMENT DEPRESSION ASS ESSMENT [facility] Start: 02-11-2022 FUV, Provider: Parveen Santo, Status: Pen, Time: 10:50 AM FUV, Provider: Parveen Santo, Status: Pen, Time: 10:50 AM [facility] [employer] 250 DO Work Phone: Start: 10-31-2021 Influenza vaccination C [facility] Start: 04-15-2021 COVID-19 VACCINE (4 - Booster for Pfizer series) COVID-19 VACCINE (4 - Booster for Pfizer series) [facility] Start: 03-02-2021 ADVANCE DIRECTIVE DISCUSSION ADVANCE DIRECTIVE DISCUSSION [facility] Start: 03-02-2021 DEPRESSION ASSESSMENT DEPRESSION ASS ESSMENT [facility] Start: 02-15-2021 FUV, Provider: Parveen Santo, Status: Navarro, Time: 1:30 PM FUV, Provider: Parveen Santo, Status: Navarro, Time: 1:30 PM [facility] 250 DO Work Phone: Start: 02-07-2021 COVID-19 VACCINE (4 - Booster for Pfizer series) COVID-19 VACCINE (4 - Booster for Pfizer series) [facility] Start: 02-07-2021 COVID-19 VACCINE (4 - Pfizer series) COVID-19 VACCINE (4 - Pfizer series) [facility] Start: 07-02-2015 Abdominal aortic aneurysm screening Abdominal Aortic Aneurysm (AAA) Screening [facility] Start: 07-02-2015 Pneumococcal Vaccine : 65+ (1 of 1 - PCV) Pneumococcal Vaccine: 65+ (1 of 1 - PCV) [facility] Start: 07-02-2015 Pneumococcal Vaccine : 65+ Years (1 - PCV) Pneumococcal Vaccine: 65+ Years (1 - PCV) [facility] Start: 07-02-2015 Pneumococcal Vaccine : 65+ Years (1 of 1 - PCV) Pneumococcal Vaccine: 65+ Years (1 of 1 - PCV) [facility] Start: 07-02-2015 PNEUMOCOCCAL: 65+ (1 - PCV) PNEUMOCOCCAL: 65+ (1 - PCV) [facility] Start: 07-02-2015 PNEUMOVAX AGE 65 AND OVER WITH 5YR LOOKBACK (#1) PNEUMOVAX AGE 65 AND OVER WITH 5YR LOOKBACK (#1) [facility] Start: 2010 RSV High Risk: (Elde rly (60+) or Population) (1 - Risk 60-74 years 1-dose series) RSV High Risk: (Elderly (60+) or Population) (1 - Risk 60-74 years 1-dose series) [facility] Start: 2010 RSV Vaccine (1 - 1-d ose 60+ series) RSV Vaccine (1 - 1-dose 60+ series) [facility] Start: 2000 Pneumococcal vaccination Pneum ococcal Vaccine (1 of 1 - PCV) [facility] Start: 2000 Pneumococcal Vaccine : 50+ (1 of 1 - PCV) Pneumococcal Vaccine: 50+ (1 of 1 - PCV) [facility] Start: 2000 SHINGRIX VACCINE (1 of 2) SHINGRIX VACCINE (1 of 2) [facility] Start: 2000 Zoster Vaccines (1 of 2) Zoste r Vaccines (1 of 2) [facility] Start: 07-02-1995 COLOGUARD (FIT-DNA) COLOGUARD (FIT-D NA) [facility] Start: 07-02-1995 Colonoscopy COLONOSCOPY [facility] Start: 07-02-1995 COLORECTAL CANCER SCREENING COLORECTAL CANCER SCREENING [facility] Start: 07-02-[address] COLONOGRAPHY [facility] Start: 07-02-1995 [facility] Start: 07-02-1995 Diabetes Screening Diabetes Screenin g [facility] Start: 07-02-1995 FECAL OCCULT BLOOD FECAL OCCULT BLOO D [facility] Start: 07-02-1995 Screening for malign ant neoplasm of colon [facility] Start: 07-02-1995 SIGMOIDOSCOPY SIGMOIDOSCOPY [facility] Start: 1985 Lipid panel Lipid Screening [facility] Start: 1985 LIPID SCREEN LIPID SCREEN [facility] Start: 1972 DTaP/Tdap/Td Vaccine s (1 - Tdap) DTaP/Tdap/Td Vaccines (1 - Tdap) [facility] Start: 1969 SHINGRIX VACCINE (1 of 2) SHINGRIX VACCINE (1 of 2) [facility] Start: 1969 Urine microalbumin profile [facility] Start: 1968 Anxiety Screening Anxiety Screening [facility] Start: 1968 Depression Screening Depression Scre ening [facility] Start: 1968 Diabetes mellitus screening Diabetes Screening [facility] Start: 1968 HEPATITIS C SCREENING HEPATITIS C [facility] Start: 1968 Hepatitis C screening Hepatitis C [facility] Start: 1962 Adult depression screening assessment DEPRESSION SCREENING [facility] Start: 1956 PNEUMOCOCCAL: 65+ (1 - PCV) PNEUMOCOCCAL: 65+ (1 - PCV) [facility] Start: 1950 ABDOMINAL AORTIC ANEURYSM SCREENING ABDOMINAL AORTIC ANEURYSM SCREENING [facility] Start: 1950 Abdominal aortic aneurysm screening Abdominal Aortic Aneurysm Screening [facility] Start: 1950 Lipid panel Lipid Panel [facility] Start: 1950 Medicare Annual Well ness (AWV) Medicare Annual Wellness (AWV) [facility] Start: 1950 Medicare Annual Well ness Visit Medicare Annual Wellness Visit (AWV) [facility] Start: 1950 Screening for malign ant neoplasm of colon [facility] ECG 12 Lead ECG 12 Lead ECG Routine High risk medication use 03/08/2024 9:00 AM EST [facility] Service Area Work Phone: [facility] Immunizations Immunization Date Immunization Notes Care Provider Concha lopez 11-28-2021 Fluzone High-Dose Quadrivalent 0.7 ML Intramuscular Suspension Prefilled Syringe Kevin Brewer Work Phone: [facility] 250 DO Work Phone: 11-28-2021 influenza virus vaccine, unspecified formulation Yin CARINE [facility] 11-28-2021 influenza, high dose seasonal, preservative-free Parveen Santo MD Work Phone: [facility] Work Phone: 12-13-2020 Pfizer-BioNTech COVID-19 Vacc 30 MCG/0.3ML Intramuscular Suspension Kevin Hollinsr Work Phone: [facility] 05-19-2020 Pfizer-BioNTech COVID-19 Vacc 30 MCG/0.3ML Intramuscular Suspension Kevin A Naderer Work Phone: [facility] 04-28-2020 Pfizer-BioNTech COVID-19 Vacc 30 MCG/0.3ML Intramuscular Suspension Kevin Scott Naderer Work Phone: [facility] 03-02-2020 SARS-CoV-2 (COVID-19 ) mRNA [id number] vax Abdulaziz DAWSON [facility] Comment on above: Result Comment: pt i s fully vaccinated and has received the booster but does not remember the dates 12-14-2019 influenza virus vaccine, unspecified formulation Yin HAWK [facility] 12-14-2019 influenza, injectabl e, quadrivalent, preservative free Kevin A Naderer Work Phone: [facility] [employer] DO Work Phone: 12-01-2019 influenza virus vaccine, unspecified formulation Yin HAWK [facility] 12-01-2019 influenza, seasonal, injectable Kevin A Naderer Work Phone: [facility] [employer] DO Work Phone: 02-09-2012 influenza virus vaccine, unspecified formulation Yin HAWK [facility] 02-09-2012 influenza, seasonal, injectable Kevin A Naderer Work Phone: [facility] [employer] DO Work Phone: Payers Date Payer Category Payer Self-pay [id number] 2020 Medicare supplementa l policy (as second payer) [employer] SENIOR SUPPLEMENT [id number] 2020 Private Health Insurance [employer]ACA MEDICARE SUPPLEMENT [id number] 2020-Present [phone] [address] [address] [place] [address] Indemnity [id number] 2020 Private Health Insurance [id number] 2015 Medicare MEDICARE MEDICAR E A AND B [id number] 2015-Present [phone] [place] [address] Medicare [id number] 2015 Medicare [id number] 1959 Medicare [id number] 1959 Private Health Insurance [facility] [id number] 1950 Unknown [id number] 2.840.1.931283.3.579.2 .356 1950 Unknown [id number] 2.840.1.829142.3.579.2 .356 1950 Unknown [id number] 2.16.840.1.015386.3.579.2 .356 1950 Unknown [id number] 2.16.840.1.178691.3.579.2 .593 1950 Unknown [id number] 2.16.840.1.033236.3.579.2 .593 1950 Unknown [id number] 2.16.840.1.258445.3.579.2 .593 1950 Unknown [id number] 2.16.840.1.015562.3.579.2 .593 1950 Unknown [id number] 2.16.840.1.506358.3.579.2 .727 1950 Unknown [id number] 2.16.840.1.023842.3.579.2 .727 1950 Unknown [id number] 2.16.840.1.142960.3.579.2 .727 1950 Unknown [id number] 2.16.840.1.100178.3.579.2 .1244 1950 Unknown [id number] 2.16.840.1.699509.3.579.2 .196 1950 Unknown [id number] 2.16.840.1.988612.3.579.2 .1259 1950 Unknown [id number] 2.16.840.1.956857.3.579.2 .1259 1950 Unknown [id number] 2.16.840.1.110719.3.579.2 .1259 1950 Unknown [id number] 2.16.840.1.887589.3.579.2 .1259 1950 Unknown [id number] 2.16.840.1.683088.3.579.2 .1259 1950 Unknown [id number] 2.16.840.1.075936.3.579.2 .1259 1950 Unknown [id number] 2.16.840.1.255998.3.579.2 .1259 1950 Unknown [id number] 2.16.840.1.088501.3.579.2 .1259 1950 Unknown [id number] 2.16.840.1.448916.3.579.2 .1259 1950 Unknown [id number] 2.16.840.1.099320.3.579.2 .1258 1950 Unknown [id number] 2.16.840.1.459958.3.579.2 .1258 1950 Unknown [id number] 2.16.840.1.522791.3.579.2 .1258 1950 Unknown [id number] 2.16.840.1.514072.3.579.2 .1258 1950 Unknown [id number] 2.16.840.1.302507.3.579.2 .1258 1950 Unknown [id number] 2.16.840.1.841740.3.579.2 .1258 1950 Unknown [id number] 2.16.840.1.219916.3.579.2 .1258 1950 Unknown [id number] 2.16.840.1.182873.3.579.2 .1258 1950 Unknown [id number] 2.16.840.1.356751.3.579.2 .1258 1950 Unknown [id number] 2.16.840.1.506700.3.579.2 .125 Unknown Unknown [facility] [id number] Unknown [id number] 2.16.840.1.756118.3.579.2 .531 Social History Date Type Detail Facility Start: 05-20-2021 End: 09-30-2022 Alcohol use Alcohol use [facility] Comment on above: 4 8 oz cups of coffe e/occasional decaf coffee; Quit in 1970s; Start: 04-03-2021 End: 04-07-2023 Tobacco smoking status NHIS Ex-smoker [facility] End: 04-03-1981 History of tobacco use Current smoker [facility] End: 04-03-1981 History of tobacco use Pipe Smoker [facility] End: 04-03-1981 History of tobacco use Cigar Smoker [facility] Start: 04-03-2021 End: 04-07-2023 Tobacco use and exposure Smokeless tobacco non-user [facility] Start: 05-20-2021 End: 04-12-2024 Alcohol intake Current drinker of alcohol (finding) [facility] Start: 04-03-2021 History SDOH Alcohol Comment 2-3 times/wk [facility] Start: 1950 Sex Assigned At Not on file C [facility] Start: 03-10-2021 End: 03-08-2024 Exposure to SARS-CoV-2 (event) Not sure [facility] Start: 05-20-2021 End: 09-30-2022 Sex Assigned At Male [facility] Tobacco smoking status No Smokin g Status Entered [facility] Start: 03-21-2022 Tobacco smoking status Never s moked tobacco (finding) [facility] Start: 05-11-2023 Tobacco smoking status Never [facility] End: 03-02-1969 History of tobacco use Cigarette Smoker [facility] Work Phone: Start: 02-06-2023 Alcohol Comment [facility] Work Phone: Start: 1950 Sex Assigned At Male F [facility] Do you belong to any [...] Not at all [facility] (I/We) worried [facility] (my/our) food would run out before (I/we) [...] 05-11-2023 Functional Status N/A [facility] 09-08-2022 Functional Status N/A [facility] 03-21-2022 Functional Status N/A [facility] 09-30-2021 Functional Status N/A [facility] Clinical Notes 06-11-2021 to 04-12-2024 Demetrius Guo RN - 04/12/2024 2:00 PM Demond Anthony MD - 04/12/2024 1:52 PM Val Brewer MD - 03/23/2024 10:06 AM Val Brewer MD - 03/23/2024 10:06 AM ESTPatient Instructions Note Date & Type Note Facility 04-12-2024 Note HNO ID: [id number] Author: DEMETRIUS GUO RN Service: ? Author Type: Registered Nurse Type: Progress Notes Filed: 04/12/2024 14:11 Note Text: AUA= 11 [facility] 04-12-2024 History of Present illness Narrative AUA= 11 Radiation Oncology - Follow Up Note PATIENT [...] PSA HISTORY: PSA. (no units) Date Value 03/23/2024 <0.13 03/31/2023 <0.13 08/29/2022 <0.13 03/11/2022 <0.13 ALLERGIES No Known Allergies baclofen 10 mg tablet Take 1 tablet by mouth once daily. furosemide (LASIX) 40 mg tablet Take 40 mg by mouth at bedtime as needed. glucosamine-chondroitin 500-400 mg capsule meloxicam (MOBIC) 15 mg tablet Take 15 mg by mouth. potassium chloride 20 mEq TbER Take 20 mEq by mouth at bedtime as needed. URO-MP 118-10-40.8-36 mg Take 1 capsule by [...] or tachycardia portable - Total AUA Score: 11 Bowel movement frequency: 1/day Bowel movement quality: normal Blood per rectum: none Unable to have erection Androgen deprivation: [id number] only, was discontinued PHYSICAL EXAM: BP 133/82 Pulse 70 Temp 36.1 C (97 F) Resp 18 Wt (!) 146.1 kg (322 lb 1.5 oz) SpO2 98% KPS: 100 General Appearance: Alert and oriented. No acute distress. Rectal exam is deferred. ASSESSMENT/PLAN: Prostate adenocarcinoma, initial PSA 4.3, biopsy Cy score 3 + 4 = 7 (grade group 2), clinical stage T2a, N0, M0, stage IIB [T1-T2, N0, M0, PSA <20, GG 2] (AJCC 8th ed.), s/p TRUS Random and MRI fusion biopsy. Overall doing fairly well. PSA remains undetectable. Plan see patient back in one year for further postradiation follow-up. Signed by: Demond Butler MD cc: Kevin Brewer MD ([facility]) [address] [place] [address] Portions of the above note extracted and edited from previous visit as well as active information included in the EMR. documented in this encounter [facility] 04-12-2024 Note HNO ID: [id number] Author: Demond BUTLER MD Service: ? Author Type: Physician Type: Progress Notes Filed: 04/12/2024 14:11 Note Text: Radiation Oncology - Follow Up Note PATIENT NAME: Luis Luis PATIENT DIAGNOSIS: Prostate adenocarcinoma, initial PSA 4.3, biopsy [place] score 3 + 4 = 7 (grade [...] PSA HISTORY: PSA. (no units) Date Value 03/23/2024 <0.13 03/31/2023 <0.13 08/29/2022 <0.13 03/11/2022 <0.13 ALLERGIES No Known Allergies baclofen 10 mg tablet Take 1 tablet by mouth once daily. furosemide (LASIX) 40 mg tablet Take 40 mg by mouth at bedtime as needed. glucosamine-chondroitin 500-400 mg capsule meloxicam (MOBIC) 15 mg tablet Take 15 mg by mouth. potassium chloride 20 mEq TbER Take 20 mEq by mouth at bedtime as needed. URO-MP 118-10-40.8-36 mg Take 1 capsule by [...] or tachycardia portable - Total AUA Score: 11 Bowel movement frequency: 1/day Bowel movement quality: normal Blood per rectum: none Unable to have erection Androgen deprivation: Zeprfms1h only, was discontinued PHYSICAL EXAM: BP 133/82 Pulse 70 Temp 36.1 ?C (97 ?F) Resp 18 Wt (!) 146.1 kg (322 lb 1.5 oz) SpO2 98% KPS: 100 General Appearance: Alert and oriented. No acute distress. Rectal exam is deferred. ASSESSMENT/PLAN: Prostate adenocarcinoma, initial PSA 4.3, biopsy Cy score 3 + 4 = 7 (grade group 2), clinical stage T2a, N0, M0, stage IIB [T1-T2, N0, M0, PSA <20, GG 2] (AJCC 8th ed.), s/p TRUS Random and MRI fusion biopsy. Overall doing fairly well. PSA remains undetectable. Plan see patient back in one year for further postradiation follow-up. Signed by: Demond Butler MD cc: Kevin Brewer MD ([facility]) [address] [place] [address] Portions of the above note extracted and edited from previous visit as well as active information included in the EMR. [facility] 03-23-2024 History of Present illness Narrative Associated Problem(s): Paroxysmal SVT (supraventricular tachycardia) (CMS/HCC) Occasional palpitations and continue medication. Follow with cardiology. Associated Problem(s): Prostate cancer (CMS/HCC) Follow with specialists. Associated Problem(s): Medicare annual wellness visit, subsequent Reviewed labs. Discussed proper diet and regular aerobic exercise. Need aerobic exercise 5-6 days a week for 30 minutes at a time. Smaller portions and limit total calories. Colonoscopy every 10 years. Tetanus every 10 years. Advised not to smoke. Images from the original note were not included. Subjective Patient ID: Luis Luis is a 73 y.o. male who presents for Medicare Annual Wellness Visit Subsequent (wellness). Presents for medicare annual wellness visit. Weight up since last visit but overall unchanged in the past year. Not as active in winter but tries to do things around house. Tries to watch diet and eat healthy. Increased fruits and vegetables. Smaller portions and limits snacking. Tries to limit total daily calories. Labs checked in June. Following with urology for prostate cancer. Following with cardiology for SVT. No palpitations or heart racing. Review of Systems Constitutional: Negative for fatigue. [...] There is no guarding or rebound. Musculoskeletal: General: Normal range of motion. Left lower leg: No edema. Neurological: General: No focal deficit present. Mental Status: He is alert. Cranial Nerves: No cranial nerve deficit. Deep Tendon Reflexes: Reflexes normal. Assessment/Plan Problem List Items Addressed This Visit Prostate cancer ([facility]/HCC) Follow with specialists. Paroxysmal SVT (supraventricular tachycardia) ([facility]) Occasional palpitations and continue medication. Follow with cardiology. Medicare annual wellness visit, subsequent - Primary Reviewed labs. Discussed proper diet and regular aerobic exercise. Need aerobic exercise 5-6 days a week for 30 minutes at a time. Smaller portions and limit total calories. Colonoscopy every 10 years. Tetanus every 10 years. Advised not to smoke. documented in this encounter [facility] 03-08-2024 Evaluation + Plan note Associated Problem(s): Morbid obesity with BMI of 40.0-44.9, adult (Multi) Reviewed the merits of healthy lifestyle choices on overall cardiovascular health. [facility] Work Phone: 03-08-2024 Evaluation + Plan [...] appropriate and potentially safer approach than ablation. [facility] Work Phone: 03-08-2024 Miscellaneous Notes Associated [...] ablation. Associated Problem(s): Paroxysmal SVT (supraventricular tachycardia) ([facility]-HCC) Initial diagnosis August 2019 Has remained quiescent [...] Compliant with meds documented in this encounter [facility] Work Phone: 03-08-2024 Evaluation + Plan note Associated Problem(s): Paroxysmal SVT (supraventricular tachycardia) (CMS-HCC) Initial diagnosis August 2019 Has remained quiescent on propafenone since June 2021 EKG in office maintaining normal sinus rhythm with bifascicular block [facility] Work Phone: 03-08-2024 Evaluation + Plan note Associated Problem(s): Hypertension Optimal in office [facility] Work Phone: 03-08-2024 Evaluation + Plan note Associated Problem(s): HLD (hyperlipidemia) Low intensity statin Reports he is due for annual labs April 2024 [facility] Work Phone: 03-08-2024 Evaluation + Plan note [...] November 2019 MPI no ischemia, no infarct [facility] Work Phone: 03-08-2024 Evaluation + Plan note Associated Problem(s): High risk medication use Propafenone initiated June 2021 EKG in office maintaining normal sinus rhythm November 2019 MPI no ischemia, no infarct August 2019 TTE LVEF 55 to 60% [facility] Work Phone: 03-08-2024 Evaluation + Plan note Associated Problem(s): Obstructive sleep apnea syndrome Compliant with meds [facility] Work Phone: 03-08-2024 History of Present illness [...] orthopedics next month. 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 [...] if new symptoms arise. Mary Tam MSN, INVENTORY CLERK-LACTATION COORDINATOR, PMHNP-[facility] [place], [place] Please excuse any errors in grammar or translation related to this dictation. Voice recognition software was utilized to prepare this document. documented in this encounter [facility] Work Phone: 03-08-2024 Instructions GENA Hill [...] Mejía 6 months documented in this encounter [facility] Work Phone: 02-17-2024 History of Present [...] note were not included. Subjective Patient ID: Lusi Luis is a 73 y.o. male who [...] and has to use right arm to picker / packer leg getting in/out of truck. 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 Goals: in 6 weeks Centralize symptoms to [...] 3:48 PM EST documented in this encounter [facility] 12-21-2023 History of Present illness Narrative Associated [...] spine wo contrast documented in this encounter [facility] 10-28-2023 History of Present illness Narrative General [...] HISTORY: Past Medical History: Diagnosis Date Cancer (CMS/HCC) Hypertension (CMS/HCC) Social History Tobacco Use Smoking status: Former [...] Depression: Not at risk (04/07/2023) Received from [facility] PHQ-2 PHQ-2 score: 0 Physical [...] Sakina Nj DO documented in this encounter [facility] 05-11-2023 Hospital Discharge instructions Patient Education 05/11/2023 [...] Where to find more information [employer] [place] [employer]: www.cancer.org [place] [employer]: www.auanet.org Contact a health care [...] provider. Document Revised: 08/12/2021 Document Reviewed: 08/12/2021 [employer] Patient Education 2022 [employer]. Follow Up Care 09/08/2022 12:26:22 With:CARINE DELGADO, Yin Patel, URL Address: [facility] [address] , [place] [address] [phone] When: Unknown Comments:PSA in 6 mos and f/u in 1 yr w/ repeat PSA [facility] [place] 04-07-2023 Nurse Note AUA=12 documented in this encounter [facility] 04-07-2023 History of Present illness Narrative [...] Butler MD cc: Kevin Brewer MD ([facility]) [address] [place] [address] Portions of the above note extracted and edited from previous visit as well as active information included in the EMR. documented in this encounter [facility] 02-10-2023 History of Present illness Narrative [...] in office today documented in this encounter [facility] Work Phone: 02-10-2023 Instructions Felix Caal [...] of your visit. documented in this encounter [facility] Work Phone: 09-30-2022 History of Present illness Narrative Radiation [...] ASSESSMENT/PLAN: Prostate adenocarcinoma, initial PSA 4.3, biopsy [place] score 3 + 4 = 7 (grade group 2), clinical stage T2a, N0, M0, stage IIB [T1-T2, N0, M0, PSA <20, GG 2] (AJCC 8th ed.), s/p TRUS Random and MRI fusion biopsy. PSA remains undetectable. No postradiation related issues. Plan see patient back in 6 months for further postradiation follow-up. Signed by: Demond Butler MD cc: Kevin Brewer MD ([facility]) [address] [place] [address] Portions of the above note extracted and edited from previous visit as well as active information included in the EMR. documented in this encounter [facility] 09-30-2022 Nurse Note AUA 14 Naida Jacobo, RN documented in this encounter [facility] 09-08-2022 Hospital Discharge instructions Patient Education [...] urethra. Follow these instructions at home: Take zqxv-prc-fjkslxx and prescription medicines only as told by [...] provider. Document Revised: 09/04/2021 Document Reviewed: 09/04/2021 [employer] Patient Education 2022 [employer]. Follow Up Care 03/21/2022 12:44:25 With:CARINE DELGADO, Yin Patel, URL Address: [facility] [address], [place] [address]- [phone] When:Within 8 Month(s) Comments:PSA [facility] [place] 04-01-2022 History of Present illness [...] Yancy Oneill APRN.ANNA documented in this encounter [facility] 04-01-2022 History of Present illness Narrative Radiation Oncology - Follow Up Note PATIENT NAME: Luis Luis PATIENT DIAGNOSIS: Prostate adenocarcinoma, initial PSA 4.3, biopsy [place] score 3 + 4 = 7 (grade [...] ASSESSMENT/PLAN: Prostate adenocarcinoma, initial PSA 4.3, biopsy [place] score 3 + 4 = 7 (grade [...] Butler MD cc: Kevin Brewer MD ([facility]) [address] [place] [address] Portions of the above note extracted and edited from previous visit as well as active information included in the EMR. documented in this encounter [facility] 04-01-2022 Nurse Note AUA 14 Naida Jacobo RN documented in this encounter [facility] 03-21-2022 Hospital Discharge instructions Patient Education [...] who: Are older than age 65. Are -[place]. Are obese. Have a family history of [...] cells. Follow these instructions at home: Take iwds-qqk-pkcqhbs and prescription medicines only as told by [...] 02/16/2006 Document Revised: 01/29/2018 Document Reviewed: 10/27/2016 [employer] Patient Education 2020 [employer]. Follow Up Care 09/30/2021 11:58:37 With:CARINE DELGADO, Yin Patel, URL Address: [address] [place] [address] [place] [address]- When: Unknown Comments:6 mos w/ PSA [facility] 02-06-2022 Miscellaneous Notes Patient has been rescheduled & notified of appointment. Monica Rodríguez Pt has PSA scheduled with Dr Hawk in March and would like to postpone his follow up visit with Dr Butler until after that is done. PSS- please call pt and reschedule. He will be awaiting your call. Naida Jacobo RN documented in this encounter [facility] 09-30-2021 Hospital Discharge instructions Patient Education [...] urethra. Follow these instructions at home: Take vlvy-vzr-yvtrerf and prescription medicines only as told by [...] 02/16/2006 Document Revised: 01/11/2019 Document Reviewed: 03/23/2017 [employer] Patient Education 2020 [employer]. Follow Up Care 04/01/2021 13:09:22 With:CARINE DELGADO, Yin Patel, URL Address: [facility] [address], [place] [address]- [phone] When:Within 6 Month(s) Comments:w/ PSA [facility] [place] 08-14-2021 Nurse Note AUA 18 Naida Jacobo RN documented in this encounter [facility] 08-14-2021 History of Present illness Narrative [...] Butler MD cc: Kevin Brewer MD ([facility]) [address] [place] [address] documented in this encounter [facility] 08-09-2021 Hospital Discharge instructions Patient Education [...] including vitamins, herbs, eye drops, creams, and omag-epi-puosjro medicines. Any problems you or family members [...] 07/27/2006 Document Revised: 01/29/2018 Document Reviewed: 02/25/2017 [employer] Patient Education 2020 [employer]. Follow Up Care 07/04/2021 11:13:01 With:CARINE DELGADO, Yin Patel, URL Address: [facility] [address] [place] [address]- [phone] When: Unknown [facility] 08-05-2021 Miscellaneous Notes Ok to resched Luis called in stating he tested positive for COVID-19 on 08/03/21 and his symptoms started , 08/01/21. He has a scheduled 6wk post implant follow up on 08/08/21. He will call us later in the week to possibly reschedule his follow up. Demetrius Guo LPN documented in this encounter [facility] 07-25-2021 History of Present illness Narrative Patient: Luis Luis Date:07/25/2021 [facility] Department of Radiation Oncology [facility] RADIATION ONCOLOGY POST SEED IMPLANT SIMULATION NOTE [...] M.D. 23:26 PM documented in this encounter [facility] 06-27-2021 History of Present illness Narrative Date: 06/27/21 Facility: [facility] Procedure: prostate transperineal brachytherapy implant Sources: [id number] Anesthesia:general Urologist: Dr. Hwak This is an operative report supplement to [...] Butler MD (Signed electronically to expedite mailing) [facility] documented in this encounter [facility] 06-11-2021 History of Present illness Narrative [...] Demond Butler MD documented in this encounter [facility] 06-11-2021 History of Present illness Narrative LUIS LUIS [id number] 06/11/2021 [facility] Department of Radiation Oncology [facility] RADIATION ONCOLOGY SIMULATION NOTE DATE OF SIMULATION: 06/11/2021 MACHINE: [employer] 500 Diagnosis: 185 (Prostate Gland) AREA:Prostate PATIENT POSITION: Supine CONTRAST: None PROTOCOL: None CONCURRENT THERAPY: None FIXATION DEVICE: UTS Stabilization device by [employer]. PROCEDURE: Patient was simulated in exaggerated dorsal lithotomy position. Serial images of the prostate were acquired using TRUS and reconstructed in 3D space. These images were imported into [employer] Prostate planning system where a plan was generated. ASSESSMENT/PLAN: Patient tolerated simulation procedure well. Electronically Signed Chavez Butler M.D. / LAURA 25:05 PM documented in this encounter [facility] Evaluation + Plan note Future Appointments Appointment Date:08/05/2021 08:45:00 AM Scheduled Provider:Yin HAWK MD Location:[facility] Appointment Type:URO Office Visit Appointment Date:09/30/2021 10:30:00 AM Scheduled Provider:Yin HAWK MD Location:[facility] Appointment Type:URO Office Visit Future Scheduled TestsPT & PTT 03/05/21BUN 03/05/21Creatinine 03/05/21Electrolyte Panel 03/05/21CBC w/ Auto Diff 03/05/21XR Chest 2 Views 03/05/21 [facility] Evaluation + Plan note Future Appointments Appointment Date:09/30/2021 10:30:00 AM Scheduled Provider:Yin HAWK MD Location:[facility] Appointment Type:URO Office Visit Diagnostic Tests PendingPSA Total 08/09/21 Future Scheduled TestsPT & PTT 03/05/21BUN 03/05/21Creatinine 03/05/21Electrolyte Panel 03/05/21CBC w/ Auto Diff 03/05/21XR Chest 2 Views 03/05/21 [facility] Evaluation + Plan note Future Appointments Appointment Date:03/21/2022 11:00:00 AM Scheduled Provider:Yin HAWK MD Location:[facility] Appointment Type:URO Office Visit Diagnostic Tests PendingPSA Total 09/30/21 Future Scheduled TestsPT & PTT 03/05/21BUN 03/05/21Creatinine 03/05/21Electrolyte Panel 03/05/21CBC w/ Auto Diff 03/05/21XR Chest 2 Views 03/05/21 [facility] Evaluation + Plan note Future Appointments Appointment Date:09/08/2022 10:15:00 AM Scheduled Provider:Yin HAWK MD Location:[facility] Appointment Type:URO Office Visit Diagnostic Tests PendingPSA Total 06/30/22 [facility] Evaluation + Plan note Future Appointments Appointment Date:05/11/2023 09:45:00 AM Scheduled Provider:Yin HAWK MD Location:[facility] Appointment Type:URO Office Visit Diagnostic Tests PendingPSA Total 09/08/22 [facility] Evaluation + Plan note Future Appointments Appointment Date:05/13/2024 09:45:00 AM Scheduled Provider:Yin HAWK MD Location:[facility] Appointment Type:URO Office Visit Diagnostic Tests PendingPSA Total 05/11/23 [facility] Evaluation note Diagnosis Malignant neoplasm of prostate (HCC)- Primary Malignant neoplasm of prostate [facility] Malignant neoplasm of prostate (HCC)- Primary Malignant neoplasm of prostate [facility] Diagnosis Malignant neoplasm of prostate (HCC)- Primary Malignant neoplasm of prostate [facility]* Diagnosis Prostate cancer (HCC) Malignant neoplasm of prostate [facility] Diagnosis Malignant neoplasm of prostate (HCC)- Primary Malignant neoplasm of prostate [facility] Diagnosis Malignant neoplasm of prostate (HCC)- Primary Malignant neoplasm of prostate [facility]* Diagnosis Paroxysmal SVT (supraventricular tachycardia)- Primary Primary hypertension Unspecified essential hypertension Mixed hyperlipidemia Morbid obesity with BMI of 40.0-44.9, adult (CMS/HCC) Bifascicular block Other bilateral bundle branch block documented in this encounter [facility] Work Phone: Evaluation note* Diagnosis Malignant neoplasm of prostate (HCC)- Primary Malignant neoplasm of prostate [facility] noteNo assessment information availableMer[facility] Work Phone: Evaluation note* Diagnosis Morbid obesity due to excess calories (CMS/HCC)- Primary RENAE on CPAP Hypoxia Hypoxemia Snoring Other dyspnea and respiratory abnormality Daytime hypersomnolence documented in this encounter [facility]* Diagnosis Essential hypertension, [...] specified cardiac dysrhythmias documented in this encounter [facility]* Diagnosis Essential hypertension, [...] with right-sided sciatica documented in this encounter [facility] Healthcare[facility] note* Diagnosis Essential hypertension, [...] Special screening for malignant neoplasms, colon Dyslipidemia ([facility]/HCC) Other and unspecified hyperlipidemia Morbid obesity due to excess calories (CMS/HCC) Essential hypertension, benign (CMS/HCC)- Primary Essential hypertension, benign Lumbar radiculopathy Thoracic or lumbosacral neuritis or radiculitis, unspecified Chronic right-sided low back pain with right-sided sciatica Bilateral leg edema Edema SVT (supraventricular tachycardia) ([facility]/HCC) Other specified cardiac dysrhythmias Lumbar radiculopathy- Primary Thoracic or lumbosacral neuritis or radiculitis, unspecified Chronic right-sided low back pain with right-sided sciatica documented in this encounter [facility]* Diagnosis Essential hypertension, benign (CMS/HCC)- Primary Essential hypertension, benign Bilateral leg edema Edema SOB (shortness of breath) on exertion Shortness of breath BPH without urinary obstruction Gastroesophageal reflux disease without esophagitis Esophageal reflux RENAE on CPAP SVT (supraventricular tachycardia) ([facility]/HCC) Other specified cardiac dysrhythmias Encounter for long-term (current) use of medications Encounter for long-term (current) use of other medications Colon cancer screening Special screening for malignant neoplasms, colon Dyslipidemia ([facility]) Other and unspecified hyperlipidemia Morbid obesity due to excess calories ([facility]/HCC) Essential hypertension, benign (CMS/HCC)- Primary Essential hypertension, benign Lumbar radiculopathy Thoracic or lumbosacral neuritis or radiculitis, unspecified Chronic right-sided low back pain with right-sided sciatica Bilateral leg edema Edema SVT (supraventricular tachycardia) ([facility]/HCC) Other specified cardiac dysrhythmias Lumbar radiculopathy Thoracic or lumbosacral neuritis or radiculitis, unspecified Chronic right-sided low back pain with right-sided sciatica documented in this encounter [facility] HealthcareEvaluation note* Diagnosis Essential hypertension, [...] with right-sided sciatica documented in this encounter [facility]Evaluation note* Diagnosis Essential hypertension, benign (CMS/HCC)- Primary Essential hypertension, benign Bilateral leg edema Edema SOB (shortness of breath) on exertion Shortness of breath BPH without urinary obstruction Gastroesophageal reflux disease without esophagitis Esophageal reflux RENAE on CPAP SVT (supraventricular tachycardia) (/) Other specified cardiac dysrhythmias Encounter for long-term (current) use of medications Encounter for long-term (current) use of other medications Colon cancer screening Special screening for malignant neoplasms, colon Dyslipidemia (/) Other and unspecified hyperlipidemia Morbid obesity due to excess calories (/) Essential hypertension, benign (CMS/HCC)- Primary Essential hypertension, benign Lumbar radiculopathy Thoracic or lumbosacral neuritis or radiculitis, unspecified Chronic right-sided low back pain with right-sided sciatica Bilateral leg edema Edema SVT (supraventricular tachycardia) ([facility]/HCC) Other specified cardiac dysrhythmias Lumbar radiculopathy- Primary Thoracic or lumbosacral neuritis or radiculitis, unspecified Chronic right-sided low back pain with right-sided sciatica documented in this encounter [facility] note* Diagnosis Essential hypertension, [...] with right-sided sciatica documented in this encounter [facility] HealthcareEvaluation note* Diagnosis Essential hypertension, [...] with right-sided sciatica documented in this encounter [facility] HealthcareEvaluation note* Diagnosis Essential hypertension, [...] with right-sided sciatica documented in this encounter [facility] HealthcareEvaluation note* Diagnosis Encounter for screening colonoscopy- Primary documented in this encounter [facility] HealthcareEvaluation note* Diagnosis Essential hypertension, [...] lower extremity pain documented in this encounter [facility] HealthcareEvaluation note* Diagnosis Essential hypertension, [...] with right-sided sciatica [facility] Diagnosis Malignant neoplasm of prostate (Multi)- Primary Malignant neoplasm of prostate Paroxysmal SVT (supraventricular tachycardia) (CMS-HCC) Body mass index (BMI) 40.0-44.9, adult (Multi) High risk medication use Mixed hyperlipidemia Primary hypertension Unspecified essential hypertension Bifascicular block Other bilateral bundle branch block Morbid obesity with BMI of 40.0-44.9, adult (Multi) Obstructive sleep apnea syndrome Obstructive sleep apnea (adult) (pediatric) documented in this encounter [facility] Work Phone: Evaluation note* Diagnosis Essential hypertension, benign (CMS/HCC)- Primary [...] discogenic back pain and lower extremity pain Medicare annual wellness visit, subsequent- Primary Paroxysmal SVT (supraventricular tachycardia) (CMS/HCC) Prostate cancer (CMS/HCC) Malignant neoplasm of prostate documented in this encounter [facility] HealthcareEvaluation note* Diagnosis Malignant neoplasm of prostate (HCC)- Primary Malignant neoplasm of prostate [facility] Present illness NarrativePatient returns in [...] diet lifestyle modific ation exercise and weight loss.[facility] [employer] Work Phone: History of Present illness Narrative* [...] merits of diet exercise and weight loss. [facility] [employer] DO Work Phone: Hospital course Narrative No data available for this section [facility] Discharge instructions No data available for this section [facility] note No data available for this section [facility] N[facility]ative* Rehabilitation - Outpatient (Routine) - Authorized Specialty Diagnoses / Procedures Referred By Contac t Referred To Contact Physical Therapy Diagnoses Lumbar radiculopathy Chronic right-sided low back pain with right-sided sciatica Procedures TX OFFICE/OUTPATIENT NEW HIGH MDM 60 MINUTES Kevin Brewer MD [address] [place] [address] Phone: tel: fax: Franchesca Ram, PT [address] [place] [address] Phone: tel: fax: Referral ID Status Reason Start Date Expiration Date Visits Requested Visits Authorized [id number] Authorized Specialty Services Required 01/06/2024 07/04/2024 20 20 [facility] N[facility]* Rehabilitation - Outpatient (Routine) - Authorized Specialty Diagnoses / Procedures Referred By Contac t Referred To Contact Physical Therapy Diagnoses Lumbar radiculopathy Chronic right-sided low back pain with right-sided sciatica Procedures TX OFFICE/OUTPATIENT NEW HIGH [facility] 60 MINUTES Kevin Brewer MD [address] [place] [address] Phone: tel: fax: Franchesca Ram, PT [address] [place] [address] Phone: tel: fax: Referral ID Status Reason Start Date Expiration Date Visits Requested Visits Authorized [id number] Authorized Specialty Services Required 01/06/2024 07/04/2024 20 30 [facility] Narrative* Rehabilitation - Outpatient (Routine) - Authorized Specialty Diagnoses / Procedures Referred By Contac t Referred To Contact Physical Therapy Diagnoses Lumbar radiculopathy Chronic right-sided low back pain with right-sided sciatica Procedures TX OFFICE/OUTPATIENT NEW HIGH MDM 60 MINUTES Kevin Brewer MD [address] [place] [address] Phone: tel: fax: Franchesca Ram, PT [address] [place] [address] Phone: tel: fax: Referral ID Status Reason Start Date Expiration Date Visits Requested Visits Authorized [id number] Authorized Specialty Services Required 01/06/2024 03/01/2024 20 30 [facility] Summary Purpose Family History No Family [...] Procedures ECG 12 Lead Parveen Santo MD [address] [place] [address] [address], [address] [address] Referral ID Status Reason Start Date Expiration Date V isits Requested Visits Authorized [id number] Pending Review 02/10/2023 02/10/2024 1 1 Specialty Diagnoses / Procedures Referred By Myrtle romeo Referred To Contact Cardiology Diagnoses Paroxysmal SVT (supraventricular tachycardia) Procedures Follow Up In Cardiology [facility] [address], [address] [address] Parveen Santo MD [address] [place] [address] [address], [address] [address] Referral ID Status Reason Start Date Expiration Date V isits Requested Visits Authorized [id number] Authorized 02/10/2023 02/10/2024 1 1 Additional Source Comments (unrecognized sect ion and content) No Status Records FoundNo Status Records FoundNo Status Records FoundNo Status Records FoundNo Status Records FoundNo Status Records FoundNo Status Records FoundNo Status Records FoundNo Status Records FoundNo Status Records Found INFORMATION SOURCE (unrecogn ized section and content) DATE CREATED AUTHOR 12/03/2019 [facility] DATE CREATED AUTHOR AUTHOR'S ORGANIZ ATION 02/12/2022 [facility] DATE CREATED AUTHOR AUTHOR'S ORGANIZ ATION 02/12/2022 [employer] DATE CREATED AUTHOR AUTHOR'S ORGANIZ ATION 07/10/2022 [facility] DATE CREATED AUTHOR AUTHOR'S ORGANIZ ATION 05/13/2023 [facility] DATE CREATED AUTHOR AUTHOR'S ORGANIZ ATION 11/22/2023 [facility] DATE CREATED AUTHOR AUTHOR'S ORGANIZ ATION 03/14/2024 [facility] DATE CREATED AUTHOR AUTHOR'S ORGANIZ ATION 03/23/2024 [facility] DATE CREATED AUTHOR AUTHOR'S ORGANIZ ATION 03/25/2024 [facility] DATE CREATED AUTHOR AUTHOR'S ORGANIZ ATION 04/14/2024 [facility] Source Comments (unrecognize d section and content) In the event this informatio n is protected by the Federal Confidentiality of Alcohol and Drug Abuse Patient Records regulations: The Federal rules restrict any use of the information to criminally investigate or prosecute any alcohol or drug abuse patient.[facility] the event this information is protected by the Federal Confidentiality of Alcohol and Drug Abuse Patient Records regulations: The Federal rules restrict any use of the information to criminally investigate or prosecute any alcohol or drug abuse patient.[facility] Hospital[facility] the event this information is protected by the Federal Confidentiality of Alcohol and Drug Abuse Patient Records regulations: The Federal rules restrict any use of the information to criminally investigate or prosecute any alcohol or drug abuse patient.[facility] Hospital[facility] the event this information is protected by the Federal Confidentiality of Alcohol and Drug Abuse Patient Records regulations: The Federal rules restrict any use of the information to criminally investigate or prosecute any alcohol or drug abuse patient.[facility] Hospital[facility] the event this information is protected by the Federal Confidentiality of Alcohol and Drug Abuse Patient Records regulations: The Federal rules restrict any use of the information to criminally investigate or prosecute any alcohol or drug abuse patient.[facility] Hospital[facility] the event this information is protected by the Federal Confidentiality of Alcohol and Drug Abuse Patient Records regulations: The Federal rules restrict any use of the information to criminally investigate or prosecute any alcohol or drug abuse patient.[facility] Hospital[facility] the event this information is protected by the Federal Confidentiality of Alcohol and Drug Abuse Patient Records regulations: The Federal rules restrict any use of the information to criminally investigate or prosecute any alcohol or drug abuse patient.[facility] Hospital[facility] the event this information is protected by the Federal Confidentiality of Alcohol and Drug Abuse Patient Records regulations: The Federal rules restrict any use of the information to criminally investigate or prosecute any alcohol or drug abuse patient.[facility] Hospital[facility] the event this information is protected by the Federal Confidentiality of Alcohol and Drug Abuse Patient Records regulations: The Federal rules restrict any use of the information to criminally investigate or prosecute any alcohol or drug abuse patient.[facility] HospitalIn the event this information is protected by the Federal Confidentiality of Alcohol and Drug Abuse Patient Records regulations: The Federal rules restrict any use of the information to criminally investigate or prosecute any alcohol or drug abuse patient.[facility] Hospital[facility] the event this information is protected by the Federal Confidentiality of Alcohol and Drug Abuse Patient Records regulations: The Federal rules restrict any use of the information to criminally investigate or prosecute any alcohol or drug abuse patient.[facility] Hospital[facility] the event this information is protected by the Federal Confidentiality of Alcohol and Drug Abuse Patient Records regulations: The Federal rules restrict any use of the information to criminally investigate or prosecute any alcohol or drug abuse patient.[facility] HospitalIn the event this information is protected by the Federal Confidentiality of Alcohol and Drug Abuse Patient Records regulations: The Federal rules restrict any use of the information to criminally investigate or prosecute any alcohol or drug abuse patient.[facility] HospitalIn the event this information is protected by the Federal Confidentiality of Alcohol and Drug Abuse Patient Records regulations: The Federal rules restrict any use of the information to criminally investigate or prosecute any alcohol or drug abuse patient.[facility] Teams (unrecognized sec tion and content) Supervisor [employer] Relationship Specialty Start Date End Date Kevin Brewer [address] [place] [address] PCP - General Family Practice 03/22/21 Yin Hawk MD [address] [place] [address] Referring Urology 03/22/21 [employer] Relationship Specialty Start Date End Date Kevin Brewer [address] [place] [address] PCP - General Family Practice 03/22/21 Yin Hawk MD [address] [place] [address] Referring Urology 03/22/21 [employer] Relationship Specialty Start Date End Date Kevin Brewer [address] [place] [address] PCP - General Family Practice 03/22/21 Yin Hawk MD [address] [place] [address] Referring Urology 03/22/21 [employer]visor [employer] Relationship Specialty Start Date End Date Kevin Brewer Sonia [address] [place] [address] PCP - General Family Practice 03/22/21 Yin Hawk MD [address] [place] [address] Referring Urology 03/22/21 [employer]visor [employer] Relationship Specialty Start Date End Date Kevin Brewer [address] [place] [address] PCP - General Family Practice 03/22/21 Yin Hawk MD [address] [place] [address] Referring Urology 03/22/21 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 [employer] Relationship Specialty Start Date End Date Kevin Brewer [address] [place] [address] PCP - General Family Medicine 03/22/21 Yin Hawk MD [address] [place] [address] Referring Urology 03/22/21 [employer]visor [employer] Relationship Specialty Start Date End Date Kevin Brewer [address] [place] [address] PCP - General Family Medicine 03/22/21 Yin Hawk MD [address] [place] [address] Referring Urology 03/22/21 [employer]visor [employer] Relationship Specialty Start Date End Date Kevin Brewer [address] [place] [address] PCP - General Family Medicine 03/22/21 Yin Hawk MD [address] [place] [address] Referring Urology 03/22/21 Supervisor [employer] Relationship Specialty Start Date End Date Kevin Brewer [address] [place] [address] PCP - General Family Medicine 03/22/21 Yin Hawk MD [address] [place] [address] Referring Urology 03/22/21 Supervisor [employer] Relationship Specialty Start Date End Date Kevin Brewer MD [address] 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[employer] Relationship Specialty Start Date End Date Kevin Brewer [address] [place] [address] PCP - General Family Medicine 03/22/21 Yin Hawk MD [address] [place] [address] Referring Urology 03/22/21 Supervisor [employer] Relationship Specialty Start Date End Date Kevin Brewer [address] [place] [address] PCP - General Family Medicine 03/22/21 Yin Hawk MD [address] [place] [address] Referring Urology 03/22/21 Supervisor [employer] Relationship Specialty Start Date End Date Kevin Brewer MD [address] [place] [id number] PCP - General Family Medicine 06/29/23 Supervisor [employer] Relationship Specialty Start Date End Date Kevin Brewer MD [address] [place] [address] PCP - General Family Medicine 06/29/23 Supervisor [employer] Relationship Specialty Start Date End Date Kevin Brewer MD [address] [place] [address] PCP - General Family Medicine 06/29/23 Supervisor [employer] Relationship Specialty Start Date End Date Kevin Brewer MD [address] [place] [address] PCP - General Family Medicine 06/29/23 Supervisor [employer] Relationship Specialty Start Date End Date Kevin Brewer MD [address] [place] [address] PCP - General Family Medicine 06/29/23 Supervisor [employer] Relationship Specialty Start Date End Date Kevin Brewer MD [address] [place] [address] PCP - General Family Medicine 06/29/23 Supervisor [employer] Relationship Specialty Start Date End Date Kevin Brewer MD [address] [place] [address] PCP - General Family Medicine 06/29/23 Supervisor [employer] Relationship Specialty Start Date End Date Kevin Brewer MD [address] [place] [address] PCP - General Family Medicine 06/29/23 Supervisor [employer] Relationship Specialty Start Date End Date Kevin Brewer MD [address] [place] [address] PCP - General Family Medicine 06/29/23 Supervisor [employer] Relationship Specialty Start Date End Date Kevin Brewer MD [address] [place] [address] PCP - General Family Medicine 06/29/23 Supervisor [employer] Relationship Specialty Start Date End Date Kevin Brewer MD [address] [place] [address] PCP - General Family Medicine 06/29/23 Supervisor [employer] Relationship Specialty Start Date End Date Kevin Brewer MD [address] [place] [address] PCP - General Family Medicine 06/29/23 Supervisor [employer] Relationship Specialty Start Date End Date Kevin Brewer MD [address] [place] [address] PCP - General Family Medicine 06/29/23 Supervisor [employer] Relationship Specialty Start Date End Date Kevin Brewer MD [address] [place] [address] PCP - General Family Medicine 06/29/23 Supervisor [employer] Relationship Specialty Start Date End Date Kevin Brewer MD [address] [place] [address] PCP - General Family Medicine 06/29/23 Supervisor [employer] Relationship Specialty Start Date End Date Kevin Brewer MD [address] [place] [address] PCP - General Family Medicine 06/29/23 Supervisor [employer] Relationship Specialty Start Date End Date Kevin Brewer MD [address] [place] [address] PCP - General Family Medicine 06/29/23 Supervisor [employer] Relationship Specialty Start Date End Date Kevin Brewer MD [address] [place] [address] PCP - General Family Medicine 06/29/23 Supervisor [employer] Relationship Specialty Start Date End Date Kevin Brewer MD [address] [place] [address] PCP - General Family Medicine 06/29/23 [employer] Relationship Specialty Start Date End Date Kevin Brewer MD [address] [place] [address] PCP - General Family Medicine 06/29/23 [employer] Relationship Specialty Start Date End Date Kevin Brewer MD [address] [place] [address] PCP - General Family Medicine 06/29/23 [employer] Relationship Specialty Start Date End Date Kevin Brewer MD [address] [place] [address] PCP - General Family Medicine 02/05/23 [employer] Relationship Specialty Start Date End Date Kevin Brewer MD [address] [place] [phone] PCP - General Family Medicine 06/29/23 [employer] Relationship Specialty Start Date End Date Kevin Brewer MD [address] [place] [phone] PCP - General Family Medicine 06/29/23 [employer] Relationship Specialty Start Date End Date Kevin Brewer MD [address] [place] [address] PCP - General Family Medicine 06/29/23 [employer] Relationship Specialty Start Date End Date Kevin Brewer MD [address] [place] [address] PCP - General Family Medicine 03/22/21 Yin Hawk MD [address] [place] [address] Referring Urology 03/22/21 Reason for Visit (unrecogniz ed section and content) Reason Comments Annual Exam Specialty Diagnoses / Procedures Referred By Contac t Referred To Contact Cardiology Diagnoses Paroxysmal SVT (supraventricular tachycardia) ([facility]) Procedures Follow Up In Cardiology Parveen Santo MD McGuinn, William P, MD Retired From Practice Referral ID Status Reason Start Date Expiration Date V isits Requested Visits Authorized [id number] Authorized 02/10/2023 02/10/2024 1 1 Specialty Diagnoses / Procedures Referred By Contac t Referred To Contact Radiation Oncology / RADIATION ONCOLOGY Diagnoses Malignant neoplasm of prostate Seed Implant at [facility] Procedures SEED IMPLANT Demond Butler MD [address] [place] [address] Demond Butler MD [address] [place] [address] [place] [address] Referral ID Status Reason Start Date Expiration Date V isits Requested Visits Authorized [id number] Authorized 06/27/2021 03/01/2022 99 99 Reason Comments FYI-No Action Needed Covid19 Concern Reason Comments Prostate Cancer Reason Comments Future Appointment Specialty Diagnoses / Procedures Referred By Contac t Referred To Contact Diagnoses Paroxysmal SVT (supraventricular tachycardia) Procedures ECG 12 Lead Parveen Santo MD [address] [facility] [address], [facility] [address] [place] [address] Referral ID Status Reason Start Date Expiration Date V isits Requested Visits Authorized [id number] Pending Review 02/10/2023 02/10/2024 1 1 Specialty Diagnoses / Procedures Referred By Contac t Referred To Contact Radiation Oncology / RADIATION ONCOLOGY Diagnoses Malignant neoplasm of prostate SIM/JADA/Pelvis Procedures SIMULATION BREONNA IMRT 25 fractions Demond Butler MD [address] [address] Demond Butler MD [address] [place] [address] [place] [address] Referral ID Status Reason Start Date Expiration Date Visits Re quested Visits Authorized [id number] Closed 04/09/2021 03/01/2022 99 99 Reason Comments [...] Reason Comments Hip Pain Right hip pain Reason Comments Medicare Annual Wellness Visit Subsequen t wellness Goals (unrecognized section and content) Goals may [...] BE BASED ON THE PRIMARY CLINICAL RECORDS. [employer] provides no warranty or guarantee of the accuracy or completeness of information in this document.
== END 2024-04-19 12:46 | disposition home or self-care (01) ==
LOC: PM 12:46
PROVIDERS: PCP Family Medicine; Visit Provider Nurse Practitioner
DX: M70.61 Trochanteric bursitis, right hip (principal)
CPT/HCPCS: 20610; J0665; J1010

== ENCOUNTER 2024-05-30 13:29 | Outpatient (OUT) | payer MEDICARE, SELFPAY ==
[2024-05-30 13:54] LABS: Anion Gap 13.9; BUN Creatinine Ratio 17.8; Calcium 9.1 mg/dL (8.5-10.1); Carbon Dioxide 27.6 mmol/L (21.0-32.0); Chloride 105 mmol/L (98-107); Estimated GFR (African America >60 (>=60 mL/min/1.73m^2); Estimated GFR (Non-African Ame >60 (>=60 mL/min/1.73m^2); Glucose 88 mg/dL (74-106); Potassium 4.5 mmol/L (3.5-5.1); Sodium 142 mmol/L (136-145)
== END 2024-05-30 13:30 | disposition home or self-care (01) ==
LOC: LAB 13:31
PROVIDERS: PCP Family Medicine; Visit Provider Nurse Practitioner
DX: I47.10 Supraventricular tachycardia, unspecified (principal)
CPT/HCPCS: 36415; 80048

== ENCOUNTER 2024-07-14 08:45 | Outpatient (OUT) | payer MEDICARE, SELFPAY ==
--- NOTE | 2024-07-14 09:05 | PM.CN ---
Consult Note: HPI Data of Consult Patient: known to practice within the last 3 years Requesting Physician: Shaina Calhoun NP Primary Care Provider: Kevin Olivo MD Consult Narrative Reason for consult: f/u Narrative: Herbert Luis a pleasant 73 year old male presents for evaluation and management of chronic right hip pain secondary to OA. Pt has found mild benefit to chiropractor, PT/HEP greater than 6 weeks, tylenol, NSAIDs, and baclofen. continues to have mild to moderate right lateral hip pain, pain 5/10 increasing to 9/10 with rolling over in bed, lying on right side, standing and walking. denies numbness tingling to RLE. prior right hip injection provided >50% improvement greater than 3 months cc:: CC: Shaina Calhoun NP Review of Systems ROS Status of ROS 10 or more systems reviewed and unremarkable except as noted in history and below Musculoskeletal Reports: joint pain PFSH PFSH Medical History Prostate cancer ?C61 - Malignant neoplasm of prostate (ICD-10) Sleep apnea ?G47.30 - Sleep apnea, unspecified (ICD-10) Atrial fibrillation ?I48.91 - Unspecified atrial fibrillation (ICD-10) Hyperlipidemia ?E78.5 - Hyperlipidemia, unspecified (ICD-10) Edema ?R60.9 - Edema, unspecified (ICD-10) Broken arm ?S42.309A - Unspecified fracture of shaft of humerus, unspecified arm, initial encounter for closed fracture (ICD-10) Hypertension ?I10 - Essential (primary) hypertension (ICD-10) Cancer ?C80.1 - Malignant (primary) neoplasm, unspecified (ICD-10) Surgical History History of surgery on arm ?Z98.890 - Other specified postprocedural states (ICD-10) Hx of colonoscopy ?Z98.890 - Other specified postprocedural states (ICD-10) History of prostate surgery ?Z98.890 - Other specified postprocedural states (ICD-10) Family History Other Family history of cancer Family history of hypertension H/O cardiac radiofrequency ablation Hearing loss Heart disease Social History Within the past year, how often did you have a drink containing alcohol: 2-3 times a week Smoking status: Former smoker Second hand tobacco smoke exposure: No Non-prescribed substance use: denies use 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 Highest level of school completed/degree received: Bachelor's degree Meds Home Medications and Allergies Home Medications ?Medication ?Instructions ?Recorded ?Confirmed ?Type atorvastatin 10 mg tablet 10 mg PO QPM 08/17/23 03/14/24 History diltiazem HCl 180 mg 180 mg PO DAILY 08/17/23 03/14/24 History capsule,extended release 24 hr furosemide 40 mg tablet 40 mg PO DAILY PRN edema 08/17/23 03/14/24 History potassium chloride 20 mEq 20 meq PO DAILY PRN hypokalemia 08/17/23 03/14/24 History tablet,extended release (K-Tab) propafenone 150 mg tablet 150 mg PO TID 08/17/23 03/14/24 History tamsulosin 0.4 mg capsule 0.4 mg PO DAILY 08/17/23 03/14/24 History baclofen 10 mg tablet 10 mg PO DAILY 03/08/24 03/14/24 History meloxicam 15 mg tablet 15 mg PO DAILY 03/08/24 03/14/24 History multivitamin 1 tab PO DAILY 03/08/24 03/14/24 History Allergies Allergy/AdvReac Type Severity Reaction Status Date / Time No Known Drug Allergies Allergy Unverified 11/11/23 12:14 Exam Constitutional Documenting provider has reviewed patient's vital signs: yes Common normals: no apparent distress, oriented x3, healthy appearing, alert and well nourished General appearance: cooperative [facility] Common normals: normocephalic, hearing grossly normal bilaterally and moist oral mucous membranes Head and scalp: normocephalic Eye Common normals: PERRL Pupil: PERRL Neck & C-Spine Common normals: full ROM General: normal visual inspection Chest Common normals: inspection of chest normal Respiratory Common normals: normal respiratory effort, no retractions and no use of accessory muscles Back & Pelvis Lumbar spine/lower back: no pain with ROM, no lumbar spinal tenderness, no paraspinal muscle tenderness and no paraspinal muscle spasm Sacroiliac joints: SI joints normal Other: negative bilateral dixie(patricks), gaenslens, thigh thrust, compression test Extremity Right lower extremity: hip joint Other: moderate right hip and groin pain with internal and external rotation of right hip Neuro Common normals: oriented x3, CN's II-XII intact bilaterally, moves all extremities, no focal motor deficits, no sensory deficits noted and deep tendon reflexes 2+ bilaterally Sensorium/orientation: alert Motor exam: strength 5/5 throughout and no movement abnormalities noted Psych Common normals: mental status grossly normal, thought process normal, cooperative, affect normal, speech normal and activity/motor behavior normal Speech: normal speech Thought process: normal thought process Results Additional Findings Additional findings: If on a controlled substance or opioids, I have checked an OARRS report on this patient and there are no aberrancies noted in the prescribing history.??If on a controlled substance or opioid a drug screen was completed and reviewed within the last year, and if there has not been a drug screen completed we ordered one today to monitor higher risk, state monitored pain medication use. As part of providing excellent, safe, comprehensive care, the following was completed at our patient's visit: 1. A medication reconciliation and review to ensure accurate knowledge of current/active medications, including asking our patients to inform us about any [id number] medications or herbal remedies/nutritional supplements/alternative remedies. 2. A review to specifically ensure our patients have had annual screening for screening for depression, screening for tobacco use, and screening for unhealthy alcohol use. For concerning screenings had a discussion with the patient, provided patient education, and recommended follow-up with primary care provider when appropriate. If patient noted with a risk of falling, they received education on strength, gait, and balance training to prevent future risk of falling. Portions of this note may have been carried over from the previous visit and updated as appropriate. Please note this office utilizes paper charting in addition to the electronic medical record. A list of current medications, vitals, and PMH is available there as the clinical staff outside of myself do not have access to [employer] charting during the clinic day operations. As part of providing quality comprehensive care the current medications, vitals, and PMH were reviewed in the paper chart. Assessment and Plan Assessment and Plan (1) Osteoarthritis of right hip: Assessment and Plan: BERNA 24% with moderate to severe pain impacting standing, walking, sitting, sleep (2) Greater trochanteric bursitis of right hip: Plan repeat right hip injection under fluoroscopy, previous injection provided >50% improvement for 3 months continue current medications f/u 2 weeks after injection
== END 2024-07-14 08:46 | disposition home or self-care (01) ==
LOC: PM 08:45
PROVIDERS: PCP Family Medicine; Visit Provider Nurse Practitioner
DX: M16.11 Unilateral primary osteoarthritis, right hip (principal); M70.61 Trochanteric bursitis, right hip
CPT/HCPCS: G0463

== ENCOUNTER 2024-08-08 08:37 | Day surgery (SDC) | payer MEDICARE, SELFPAY ==
[2024-08-08 08:43] VITALS: BP 131/73; PULSE 72; TEMP 36.3; O2SAT 94
[2024-08-08 09:25] VITALS: BP 136/67; BP 137/65; PULSE 69; PULSE 71; O2SAT 93; O2SAT 94
[2024-08-08] MEDS: BUPIVACAINE HCL 0.25% PF 25 MG/10 ML VIAL 4 ML INJ (09:27)
--- NOTE | 2024-08-08 09:27 | W.PM.PROCNOT ---
Date of procedure: 08/08/24 Pre-op diagnosis: Pain due to right hip osteoarthritis Post-op diagnosis: same as pre-op Procedure: Procedure: Right hip injection Medications: Bupivacaine 0.25% 4cc, depomedrol 40mg I explained the details of the procedure to the patient including the risks, benefits and alternatives. We had an informed discussion and the patient verbalized understanding and signed the consent form. All questions were answered appropriately.? A time out was performed.? After obtaining a comfortable supine position, the skin overlying the hip, subtrochanteric region, and joint space were prepped with alcohol. A sterile syringe containing the above medication was attached to a 25 guage, 3.5 inch spinal needle under strict aseptic technique. X ray was used to identify the joint space and the femoral neck on the right side.? The needle was than advanced through the subcutaneous tissue after local injection of 1% lidocaine.? The contents of the syringe were gently injected without any resistance into the joint space after contrast (isovue) outlined the appropriate area. The needle was removed and pressure was applied to the injection site to decrease the incidence of ecchymosis and hematoma formation.? A sterile bandage was applied. Post procedural instructions were given to the patient. Anesthesia: Local Surgeon: Shantelle Ornelas Pathology: none sent Condition: stable Disposition: no change
[2024-08-08] MEDS: LIDOCAINE HCL 2% 400 MG/20 ML MDV INJ (09:28)
[2024-08-08] MEDS: IOHEXOL 240 MG/ML - 10 ML VIAL 24 MG INJ (09:28)
[2024-08-08] MEDS: METHYLPREDNISOLONE ACETATE 40 MG/ML VIAL INJ (09:28)
== END 2024-08-08 09:34 | disposition home or self-care (01) ==
LOC: SURGOUT 08:38
PROVIDERS: PCP Family Medicine; Visit Provider Anesthesiology
DX: M25.551 Pain in right hip (principal); M16.11 Unilateral primary osteoarthritis, right hip
CPT/HCPCS: 20610; 77002; J0665; J1010; Q9966

== ENCOUNTER 2024-08-18 08:45 | Outpatient (OUT) | payer MEDICARE, SELFPAY ==
--- NOTE | 2024-08-18 13:59 | PM.CN ---
Consult Note: HPI Data of Consult Patient: known to practice within the last 3 years Requesting Physician: Shaina Calhoun NP Primary Care Provider: Kevin Olivo MD Consult Narrative Reason for consult: f/u Narrative: Herbert Luis a pleasant 74 year old male presents for evaluation and management of chronic right hip pain secondary to OA. Pt has found mild benefit to chiropractor, PT/HEP greater than 6 weeks, tylenol, NSAIDs, and baclofen. continues to have mild to moderate right lateral hip pain, pain 3/10 increasing to 5/10 with rolling over in bed, lying on right side, standing and walking. denies numbness tingling to RLE. recently underwent right hip injection with 50% improvement ongoing. cc:: CC: Shaina Calhoun NP Review of Systems ROS Status of ROS 10 or more systems reviewed and unremarkable except as noted in history and below Musculoskeletal Reports: joint pain PFSH PFSH Medical History Prostate cancer ?C61 - Malignant neoplasm of prostate (ICD-10) Sleep apnea ?G47.30 - Sleep apnea, unspecified (ICD-10) Atrial fibrillation ?I48.91 - Unspecified atrial fibrillation (ICD-10) Hyperlipidemia ?E78.5 - Hyperlipidemia, unspecified (ICD-10) Edema ?R60.9 - Edema, unspecified (ICD-10) Broken arm ?S42.309A - Unspecified fracture of shaft of humerus, unspecified arm, initial encounter for closed fracture (ICD-10) Hypertension ?I10 - Essential (primary) hypertension (ICD-10) Cancer ?C80.1 - Malignant (primary) neoplasm, unspecified (ICD-10) Surgical History History of surgery on arm ?Z98.890 - Other specified postprocedural states (ICD-10) Hx of colonoscopy ?Z98.890 - Other specified postprocedural states (ICD-10) History of prostate surgery ?Z98.890 - Other specified postprocedural states (ICD-10) Family History Other Family history of cancer Family history of hypertension H/O cardiac radiofrequency ablation Hearing loss Heart disease Social History Within the past year, how often did you have a drink containing alcohol: 2-3 times a week Smoking status: Former smoker Second hand tobacco smoke exposure: No Non-prescribed substance use: denies use 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 Highest level of school completed/degree received: Bachelor's degree Meds Home Medications and Allergies Home Medications ?Medication ?Instructions ?Recorded ?Confirmed ?Type atorvastatin 10 mg tablet 10 mg PO QPM 08/17/23 08/08/24 History diltiazem HCl 180 mg 180 mg PO DAILY 08/17/23 08/08/24 History capsule,extended release 24 hr furosemide 40 mg tablet 40 mg PO DAILY PRN edema 08/17/23 08/08/24 History potassium chloride 20 mEq 20 meq PO DAILY PRN hypokalemia 08/17/23 08/08/24 History tablet,extended release (K-Tab) tamsulosin 0.4 mg capsule 0.4 mg PO DAILY 08/17/23 08/08/24 History baclofen 10 mg tablet 10 mg PO DAILY 03/08/24 08/08/24 History meloxicam 15 mg tablet 15 mg PO DAILY 03/08/24 08/08/24 History multivitamin 1 tab PO DAILY 03/08/24 08/08/24 History Allergies Allergy/AdvReac Type Severity Reaction Status Date / Time No Known Drug Allergies Allergy Verified 08/08/24 08:48 Exam Constitutional Documenting provider has reviewed patient's vital signs: yes Common normals: no apparent distress, oriented x3, healthy appearing, alert and well nourished General appearance: cooperative [facility] Common normals: normocephalic, hearing grossly normal bilaterally and moist oral mucous membranes Head and scalp: normocephalic Eye Common normals: PERRL Pupil: PERRL Neck & C-Spine Common normals: full ROM General: normal visual inspection Chest Common normals: inspection of chest normal Respiratory Common normals: normal respiratory effort, no retractions and no use of accessory muscles Back & Pelvis Lumbar spine/lower back: no pain with ROM, no lumbar spinal tenderness, no paraspinal muscle tenderness and no paraspinal muscle spasm Sacroiliac joints: SI joints normal Other: negative bilateral dixie(patricks), gaenslens, thigh thrust, compression test Extremity Right lower extremity: hip joint Other: mild right hip and groin pain with internal and external rotation of right hip Neuro Common normals: oriented x3, CN's II-XII intact bilaterally, moves all extremities, no focal motor deficits, no sensory deficits noted and deep tendon reflexes 2+ bilaterally Sensorium/orientation: alert Motor exam: strength 5/5 throughout and no movement abnormalities noted Psych Common normals: mental status grossly normal, thought process normal, cooperative, affect normal, speech normal and activity/motor behavior normal Speech: normal speech Thought process: normal thought process Results Additional Findings Additional findings: If on a controlled substance or opioids, I have checked an OARRS report on this patient and there are no aberrancies noted in the prescribing history.??If on a controlled substance or opioid a drug screen was completed and reviewed within the last year, and if there has not been a drug screen completed we ordered one today to monitor higher risk, state monitored pain medication use. As part of providing excellent, safe, comprehensive care, the following was completed at our patient's visit: 1. A medication reconciliation and review to ensure accurate knowledge of current/active medications, including asking our patients to inform us about any ucxq-[id number] medications or herbal remedies/nutritional supplements/alternative remedies. 2. A review to specifically ensure our patients have had annual screening for screening for depression, screening for tobacco use, and screening for unhealthy alcohol use. For concerning screenings had a discussion with the patient, provided patient education, and recommended follow-up with primary care provider when appropriate. If patient noted with a risk of falling, they received education on strength, gait, and balance training to prevent future risk of falling. Portions of this note may have been carried over from the previous visit and updated as appropriate. Please note this office utilizes paper charting in addition to the electronic medical record. A list of current medications, vitals, and PMH is available there as the clinical staff outside of myself do not have access to [employer] charting during the clinic day operations. As part of providing quality comprehensive care the current medications, vitals, and PMH were reviewed in the paper chart. Assessment and Plan Assessment and Plan (1) Osteoarthritis of right hip: Assessment and Plan: BERNA 18% with mild to moderate pain impacting standing, walking, sitting, sleep (2) Greater trochanteric bursitis of right hip: Plan right hip injection providing 50% improvement ongoing continue current medications continue HEP as tolerated pt finds benefit to right knee bracing PRN, can continue although pt not pleased with 50% improvement he is declining further orthopedic consultation in consideration of joint replacement at this time f/u 3 months, sooner if needed
== END 2024-08-18 08:46 | disposition home or self-care (01) ==
LOC: PM 13:41
PROVIDERS: PCP Family Medicine; Visit Provider Nurse Practitioner
DX: M16.11 Unilateral primary osteoarthritis, right hip (principal); M70.61 Trochanteric bursitis, right hip
CPT/HCPCS: G0463

== ENCOUNTER 2024-11-09 08:47 | Outpatient (OUT) | payer MEDICARE, SELFPAY ==
--- OUTSIDE RECORDS SUMMARY | 2024-11-09 09:08 | XMS_ITS | CCD ---
Author Organization [facility] Care Team Providers Care Director Executive Communications Name Role Phone Kevin Brewer Unavailable Unavailable Unavailable Unavailable Unavailable Kevin Brewer Primary Care Provider Yin Hawk MD R Unavailable KEVIN BREWER Primary Care Physician [phone] Unavailable Unavailable Kevin Brewer Primary Care Provider [phone] Yin Hawk MD R Unavailable DANIELLA, DR KEVIN Scott Primary Care Unavailable ALBANIAEREAmanda, DR KEVIN Scott Admitting Unavailable NADEREAmanda, DR KEVIN Scott Attending Unavailable NADEREAmanda, DR KEVIN Scott Consulting Unavailable NADEREAmanda, DR KEVIN Scott Primary Care Unavailable ENGELER, DR BOAZ Denney Admitting Unavailable ENGELER, DR BOAZ Denney Attending Unavailable ENGELEAmanda, DR BOAZ Denney Consulting Unavailable ALBANIAEREAmanda, DR KEVIN Scott Primary Care Unavailable HAWK, YIN Admitting Unavailable HAWK, YIN Attending Unavailable HAWK, YIN Consulting Unavailable NADERER, DR KEVIN Scott Primary Care Unavailable HAWK, YIN Admitting Unavailable HAWK, YIN Attending Unavailable HAWK, YIN Consulting Unavailable Kevin Brewer MD Primary Care Provider DO Franchesca Nj Attending Provider Kevin Brewer Primary Care Provider Carine DELGADO, Yin R Unavailable Kevin Brewer MD Primary Care Provider [phone] Kevin Brewer MD Primary Care Provider Demond BUTLER Attending Unavailable Demond BUTLER Referring Unavailable MARGIR, KEVIN A Primary Care Unavailable Yin HAWK Attending Unavailable Yin HAWK Attending Unavailable Kevin Brewer MD Unavailable JARRETT COPPOLA Attending Unavailable TEMPLE, ESSEIM Referring Unavailable NADERER, KEVIN ZUÑIGA Primary Care Unavailabl e TEMPLE, ESSEIM Attending Unavailable TEMPLE, ESSEIM Referring Unavailable NADERER, KEVIN YOGESH Primary Care Unavailabl e TERESA FRITZ Referring Unavailable NADERER, KEVIN MANHATTAN Primary Care Unavailabl e TEMPLE, ESSEIM Admitting Unavailable MAVERICK, ESSEIM Attending Unavailable KEVIN BREWER MANHATTAN Primary Care Unavailabl e TERESA HOBBS Referring Unavailable NADERER, KEVIN MANHATTAN Primary Care Unavailabl e Michele HAMPTON, Cheryl Scott Unavailable Kevin Brewer MD Primary Care Provider Estrellita Lynn MD Emergency Provider KEVIN BREWER Attending Unavailable NADERER, KEVIN Attending Unavailable FRANCHESCA [place] Attending Unavailable NAIDA HOBSON Attending Unavailable NADERER, KEVIN Attending Unavailable TANJA DING Attending Unavailable ALBANIAEREKEVIN Patel Referring Unavailable FRANCHESCA GRAY Attending Unavailable ALBANIAEREKEVIN Patel Referring Unavailable PULIDODAYNA Attending Unavailable NADEREAmanda, KEVIN Referring Unavailable DAYNA PULIDO Attending Unavailable ALBANIAEREAmanda, KEVIN Referring Unavailable FRANCHESCA GRAY Attending Unavailable ALBANIAEREAmanda, KEVIN Referring Unavailable DAYNA PULIDO Attending Unavailable NADEREAmanda, KEVIN Referring Unavailable CHERYL TAMAYO Attending Unavailable NADERER, KEVIN Referring Unavailable PULIDO, DAYNA Attending Unavailable NADERER, KEVIN Referring Unavailable PULIDODAYNA Attending Unavailable NADERER, KEVIN Referring Unavailable PULIDO, DAYNA Attending Unavailable NADERER, KEVIN Referring Unavailable PULIDO, DAYNA Attending Unavailable NADEREAmanda, KEVIN Referring Unavailable NADERER, KEVIN Attending Unavailable DAYNA PULIDO Attending Unavailable NADEREAmanda, KEVIN Referring Unavailable Johnson DELGADO, Shantelle Woodward Attending Unavailable Johnson DELGADO, Shantelle Woodward Attending Unavailable Estrellita Lynn Admitting Unavailable Estrellita Lynn Attending Unavailable Naderer, Kevin Primary Care Unavailable Franchesca Nj Admitting Unavailable Franchesca [place] Attending Unavailable ESTHER MEJÍA Attending Unavailable MARY TAM Referring Unavailable [facility] UnavailESTHER Giordano Referring Unavailable [facility], [facility] UnavailMARY Perez Attending Unavailable PARVEEN SANTO Referring Unavailable [facility], [facility] Referring Unavailable [facility], [facility] Unavailjennifer e ESTHER MEJÍA Attending Unavailable [facility] Unavailjennifer e TERESA HOBBS Referring Unavailable NADERE, [facility] MAVERICK, ESSPOLLYM Attending Unavailable ESTHER MEJÍA [facility] CH[facility]L BAUTISTA [facility]ending [facility] MAVERICK, ESSEIM Referring Unavailable Allergies Allergy Classification Reported Allergen(s) Allergy Type Date of Onset Reaction(s) Facility (1 source) tamsulosin Drug Allergy 05-31-2021 [facility] Medications Current Medications Medication Drug Class(es) Dates Sig (Normalized) Sig (Original) acetaminophen 325 mg oral tablet (18 sources) Start: 08-03-2024 take 1 tablet by mouth every four hours as needed Start: 03-07-2021 acetaminophen (TYLENOL) 325 mg tablet Take by mouth. 03/07/2021 Active Start: 03-07-2021 take 2 tablets by [facility] at bedtime as needed for pain [...] Active Comment on above: Take by mouth. amiodarone hydrochloride 200 mg oral tablet (3 sources) Antiarrhythmic Start: 09-20-19 End: 12-19-19 take 1 tablet by mouth once daily amiodarone (Pacerone) 200 mg tablet Indications: Paroxysmal SVT (supraventricular tachycardia) , Typical atrial flutter (Multi) Take 1 tablet (200 mg) by mouth once daily. 90 tablet 09/19/2024 12/18/2024 Active aspirin 81 mg oral tablet (11 sources) Platelet Aggregation Inhibitor, Nonsteroidal Anti-inflammatory Drug Start: 01-19-20 take 1 tablet by mouth once daily aspirin 81 mg Oral EC Tab 81 mg = 1 tab(s), Oral, Daily, Refills(s) 0, Prophylaxis Start Date: 01/18/21 Status: Ordered Start: 09-28-2019 End: 04-01-2022 take 1 tablet by mouth once daily Comment on above: Take 81 mg by mouth. atorvastatin 10 mg oral tablet (20 sources) HMG-CoA Reductase Inhibitor Start: take 1 tablet by mouth once daily at bedtime atorvastatin (Lipitor) 10 mg tablet Indications: Mixed hyperlipidemia Take 1 tablet (10 mg) by mouth once daily at bedtime. 90 tablet 3 09/16/2024 Active Start: 09-28-2019 End: 12-20-2024 take 1 tablet by mouth at bedtime atorvastatin (Lipitor) 10 MG tablet Indications: Dyslipidemia Take 1 tablet (10 mg) by mouth at bedtime 30 tablet 11 12/21/2023 12/20/2024 Active Comment on above: Take 10 mg by mouth. baclofen 10 mg oral tablet (19 sources) gamma-Aminobutyri c Acid-ergic Agonist Start: 04-05-2024 End: 07-11-2025 take 1 tablet by mouth once daily baclofen (Lioresal) 10 MG tablet Indications: Lumbar radiculopathy Take 1 tablet (10 mg) by mouth Daily 30 tablet 2 07/11/2024 07/11/2025 Active Start: 03-08-2024 take 1 tablet by cailin once daily baclofen (Lioresal) 10 MG tablet Take 10 mg by mouth Daily 03/08/2024 Active baclofen (Liores al) 10 mg tablet Take by mouth 3 times a day. Active bisacodyl 5 mg delayed release oral [...] 1 tablet 10/28/2023 10/28/2023 Active chondroitin sulfates 1200 mg / glucosamine sulfate 1500 mg oral capsule (20 sources) Start: 03-08-2024 Glucosamine-Ch ondro itin 500-400 MG capsule 03/08/2024 Active Start: 03-08-2024 End: 06-07-2024 glucosamine-chondroitin 500- 400 mg capsule Take by mouth 1 time. 03/08/2024 06/07/2024 Discontinued (Med List Cleanup) Start: 03-08-2024 glucosamine-ch ondroitin 500-400 mg capsule 03/08/2024 Active take 1 tablet by cailin th three times daily glucosamine-chondroitin 500-400 mg table t Take 1 tablet by mouth 3 times a day. Active dabigatran etexilate 150 mg oral capsule (11 sources) Start: 06-07-2024 take 1 capsule by mouth twice daily dabigatran etexilate (Pradaxa) 150 mg capsule Indications: Bifascicular block , Paroxysmal SVT (supraventricular tachycardia) Take 1 capsule (150 mg) by mouth 2 times a day. Do not crush or chew. 60 capsule 11 06/07/2024 Active 24 hr dilTIAZem hydrochloride 180 mg extended release oral capsule (20 sources) Calcium Channel Braeedn Start: 04-22-2024 End: 04-22-2025 take 1 capsule by mouth every twenty-four hours in the morning dilTIAZem CD (Cardizem CD) 180 MG 24 hr capsule Indications: Essential hypertension, benign Take 1 capsule (180 mg) by mouth in the morning. 30 capsule 11 04/22/2024 09/20/2024 Discontinued Start: 09-28-2019 take 1 tablet by cailin th every twenty-four hours dilTIAZem LA (CARDIZEM LA) 240 mg 24 hr tablet Take 240 mg by mouth. 09/28/2019 Active Start: 09-28-2019 End: 06-07-2024 take 1 capsule by mouth once daily Comment on above: Take 180 mg by mouth . Take 240 mg by mouth . DilTIAZem (Eqv-Tiazac) 180 mg/24 hours oral capsule, extended release (4 sources) Start: 01-18-2021 DilTIAZem (Eqv-Tiazac) 180 mg/24 hours oral capsule, extended release 180 mg = 1 cap(s), Oral, Daily, irregular heart rate, Refills(s) 0 Start Date: 01/18/21 Status: Ordered furosemide 40 mg oral tablet (20 sources) Loop Diuretic Start: 07-28-2023 take 1 tablet by mouth every twenty-four hours as needed furosemide (Lasix) 40 mg tablet Take 1 tablet (40 mg) by mouth once daily as needed. 07/28/2023 Active hyoscyamine sulfate 0.12 mg / methenamine 118 mg / methylene blue 10 mg / phenyl salicylate 36 mg / sodium phosphate, monobasic 40.8 mg oral capsule (8 sources) Oxidation-Reductio n Agent Start: 08-09-2021 take 1 capsule by mouth twice daily URO-MP 118-10-40.8-36 mg Take 1 capsule by mouth twice daily. 08/09/2021 Active Comment on above: Take 1 capsule by [facility] twice daily. magnesium oxide 400 mg oral tablet (4 sources) Start: 09-16-2024 End: 09-16-2025 take 1 tablet by mouth twice daily magnesium oxide (Mag-Ox) 400 mg (241.3 mg elemental) tablet Indications: Paroxysmal SVT (supraventricular tachycardia) Take 1 tablet by mouth 2 times a day. 180 tablet 3 09/16/2024 09/16/2025 Active Start: 09-16-2024 End: 09-16-2025 take 1 tablet by mouth in the morning magnesium oxide (Mag-Ox) 400 MG tablet Take 1 tablet by mouth in the morning and 1 tablet in the evening. 09/16/2024 09/16/2025 Active meloxicam 15 mg oral tablet (20 sources) Nonsteroidal Anti-inflammatory Drug Start: 02-17-2024 take 1 tablet by mouth once daily meloxicam (Mobic) 15 mg tablet Take 1 tablet (15 mg) by mouth once daily. 02/17/2024 Active Start: 12-21-2023 End: 01-18-2024 take 1 tablet by mouth once daily at mealtime meloxicam (Mobic) 15 MG tablet Indications: Lumbar radiculopathy Take 1 tablet (15 mg) by mouth Daily Take with food 30 tablet 5 01/18/2024 Active 24 hr metoprolol succinate 25 mg extended release oral tablet (16 sources) beta-Adrenergic Braeden Start: 09-19-2024 End: 12-18-2024 take 1 tablet by mouth once daily metoprolol succinate XL (Toprol-XL) 25 mg 24 hr tablet Indications: Bifascicular block , Paroxysmal SVT (supraventricular tachycardia) , Typical atrial flutter (Multi) Take 1 tablet (25 mg) by mouth once daily. Do not crush or chew. 90 tablet 09/19/2024 12/18/2024 Active Start: 09-19-2024 End: 12-18-2024 take 1 tablet by mouth every twenty-four hours in the morning metoprolol succinate XL (Toprol-XL) 25 MG 24 hr tablet Take 25 mg by mouth in the morning. 09/19/2024 12/18/2024 Active Start: 09-06-2024 End: 09-06-2025 take 1 tablet by mouth twice daily as needed metoprolol tartrate (Lopressor) 25 mg tablet Indications: Atrial tachycardia Take 1 tablet (25 mg) by mouth 2 times a day as needed (take if HR is > 100 bpm for more than 10 mins). 60 tablet 09/06/2024 09/06/2025 Active Start: 06-07-2024 End: 06-07-2025 take 1 tablet by mouth once daily metoprolol succinate XL (Toprol-XL) 50 mg 24 hr tablet Indications: Bifascicular block , Paroxysmal SVT (supraventricular tachycardia) , Typical atrial flutter (Multi) Take 1 tablet (50 mg) by mouth once daily. Do not crush or chew. 30 tablet 11 06/07/2024 06/07/2025 Active Multi Vitamin+ (3 sources) Start: 01-21-2021 take 1 capsule by mouth once daily Multi Vitamin+ 1 cap, Oral, Daily, Refill(s) 0, Prophylaxis Start Date: 01/21/21 Status: Ordered Ondansetron (1 source) Serotonin-3 Receptor Antagonist Start: 08-03-2024 take 1 tablet by mouth every eight hours as needed ondansetron (Zofran) tablet 4 mg 24 hr oxybutynin chloride 10 mg extended release oral tablet (2 sources) Cholinergic Muscarinic Antagonist Start: 08-09-2021 oxybutynin 10 mg ER Tab Refills(s) 0 Start Date: 08/09/21 Status: Ordered Start: 08-09-2021 oxybutynin 10 mg ER Tab Refills(s) 0 Start Date: 08/09/21 Status: Ordered pantoprazole 40 mg delayed release oral tablet (8 sources) Proton Pump Inhibitor Start: 08-03-2024 End: 09-14-2024 pantoprazole (ProtoNix) 40 mg EC tablet Indications: Atrial flutter, paroxysmal (Multi) Take 1 tablet (40 mg) by mouth 2 times a day before meals. For 6 weeks after ablation then discontinue 84 tablet 08/03/2024 Active polyethylene glycol 3350 50522 mg powder for oral solution (2 sources) [...] tablet (20 sources) Antiarrhythmic Start: 07-25-2021 End: 09-20-2024 propafenone (Rythmol) 150 MG tablet Take 150 mg by mouth in the morning and 150 mg at noon and 150 mg in the evening. 04/28/2023 09/20/2024 Discontinued Comment on above: Take 150 mg by mouth three times daily. sildenafil 100 mg oral tablet (9 sources) Phosphodiesterase 5 Inhibitor Start: 05-16-2024 sildenafil (Viagra) 100 mg tablet Take 1 tablet (100 mg) by mouth if needed for erectile dysfunction. 05/16/2024 Active tamsulosin hydrochloride 0.4 mg oral capsule (20 sources) alpha-Adrenergic Braeden Start: 08-09-2021 End: 11-08-2024 take 1 capsule by mouth once daily tamsulosin (Flomax) 0.4 mg 24 hr capsule Take 1 capsule (0.4 mg) by mouth once daily. 12/31/2022 Active Comment on above: Take 0.4 mg by mouth once daily. Completed/Discontinued Medications Medication Drug Class(es) Dates Sig (Normalized) Sig (Original) chlorhexidine gluconate 40 mg/ml medicated liquid soap (1 source) Start: 08-03-2024 End: 08-03-2024 apply 1 dose topically once Topical, Once, On Thu08/03/24 at 1215, For 1 dose, Preprocedure, For pre-op skin preparation Start: 08-03-2024 End: 08-03-2024 apply 1 dose topically once Topical, Once, On Thu at 1215, For 1 dose, Preprocedure, For pre-op skin preparation ciprofloxacin 500 mg oral tablet (2 sources) [...] DO Active lisinopril 10 mg oral tablet (2 sources) Angiotensin Converting Enzyme Inhibitor Start: 09-27-2019 End: 09-28-2019 take 1 tablet by mouth once daily Lisinopril 10 mg tablet Discontinued 10 MG PO Daily September 27, 2019 12:00am September 28, 2019 1:39pm naproxen sodium 220 mg oral capsule (3 sources) Nonsteroidal Anti-inflammatory Drug End: 04-12-2024 naproxen sodium (ALEVE) 220 mg cap Take by mouth. 04/12/2024 Discontinued (Discontinued by Patient) Comment on above: Take by mouth. simvastatin 20 mg oral tablet (2 sources) HMG-CoA Reductase Inhibitor Start: 09-27-2019 End: 09-28-2019 take 1 tablet by mouth at bedtime Simvastatin 20 mg tablet Discontinued 20 MG PO Bedtime September 27, 2019 12:00am September 28, 2019 1:39pm Problems Active Problems Problem Classification Problem Date Documented Date Episodic/Chronic Cancer of prostate (20 sources) Malignant tumor of prostate; Translations: [Malignant neoplasm of prostate] Onset: 08-09-2021 Chronic Cardiac dysrhythmias (20 sources) Paroxysmal supraventricular tachycardia; Translations: [Paroxysmal supraventricular tachycardia] Onset: 02-06-2023 01-18-2021 Chronic Comment on above: Problem List clean-u p per request of Phys. EHR Cmte Conduction disorders (20 sources) Bifascicular block; Translations: [Bifascicular block] Onset: [...] urinary tract symptoms] Onset: 08-09-2021 01-21-2021 Chronic Osteoarthritis (4 sources) Osteoarthritis of right hip joint; Translations: [Unilateral primary osteoarthritis, right hip] Onset: 02-17-2024 09-20-2024 Chronic Other aftercare (3 sources) Other [facility] (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; Translations: [OTH [facility] CURRENT DRUG THERAPY] Onset: 07-09-2022 Episodic Other aftercare (5 sources) Long-term current use of anticoagulant; Translations: [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] Onset: 09-06-2024 09-06-2024 Episodic Other aftercare (2 sources) [facility] (current) use of anticoagulants; Translations: [[facility] (current) use of anticoagulants] Onset: 09-06-2024 Episodic Other diseases of kidney and ureters (1 source) Urinary tract obstruction; Translations: [Other obstructive and reflux uropathy] Onset: 09-27-2021 Episodic Other lower respiratory disease (2 sources) Hypoxia; Translations: [Hypoxemia] 12-02-2023 Episodic Other lower respiratory disease (2 sources) Snoring; Translations: [Snoring] 12-02-2023 Episodic Other nutritional; endocrine; and metabolic disorders (12 sources) Obesity; Translations: [Obesity, unspecified] Onset: 08-03-2024 08-03-2024 Chronic Other nutritional; endocrine; and metabolic disorders (16 sources) Severe obesity; Translations: [Class 3 severe obesity due to excess calories without serious comorbidity with body mass index (BMI) of 40.0 to 44.9 in adult] Onset: 06-29-2023 01-18-2021 Chronic Other nutritional; endocrine; and metabolic disorders (20 sources) Body mass index 40+ - severely [...] to excess calories (Multi)] Onset: 02-10-2023 Chronic Other nutritional; endocrine; and metabolic disorders (2 sources) Body mass index (BMI) 40.0-44.9, adult; Translations: [Body mass index (BMI) 40.0-44.9, adult (Multi)] Onset: 02-10-2023 Chronic Other screening for suspected conditions (not mental disorders or infectious disease) (18 sources) Raised prostate specific antigen; Translations: [Patient encounter status] Onset: 06-13-2024 01-21-2021 Episodic Residual codes; unclassified (6 sources) Sleep apnea 03-07-2021 Chronic Residual codes; unclassified (20 sources) Obstructive sleep apnea syndrome; Translations: [Obstructive sleep apnea (adult) (pediatric)] Onset: 06-29-2023 12-02-2023 Chronic Residual codes; unclassified (2 sources) Daytime somnolence; Translations: [Other hypersomnia] 12-02-2023 Chronic Residual codes; unclassified (2 sources) Obstructive sleep apnea (adult) (pediatric); Translations: [Obstructive sleep apnea (adult) (pediatric)] Onset: 09-16-2024 Chronic Residual codes; unclassified (6 sources) Family history of prostate cancer 01-21-2021 Episodic Residual codes; unclassified (5 sources) Family history of cancer; Translations: [Family history of malignant neoplasm of prostate] Onset: 08-09-2021 Episodic Residual codes; unclassified (20 sources) Bilateral lower limb edema; Translations: [Localized edema] Onset: 06-29-2023 06-29-2023 Episodic Residual codes; unclassified (4 sources) History of radiofrequency ablation operation for arrhythmia; Translations: [Other specified postprocedural states] Onset: 09-06-2024 09-06-2024 Episodic Residual codes; unclassified (2 sources) Other specified postprocedural states; Translations: [Other specified postprocedural states] Onset: 09-06-2024 Episodic Screening and history of mental health and substance abuse codes (20 sources) Ex-smoker; Translations: [Personal history of tobacco use] Onset: 06-06-2024 06-06-2024 Episodic Comment on above: Quit in ; Spondylosis; intervertebral disc disorders; other back problems (18 sources) Degeneration of lumbar intervertebral disc; Translations: [Degeneration of intervertebral disc of lumbar region with discogenic back pain and lower extremity pain] Onset: 12-21-2023 02-17-2024 Chronic Unclassified (2 sources) Supraventricular tachycardia, unspecified; Translations: [Supraventricular tachycardia, unspecified] Onset: 06-28-2024 Unclassified (1 source) Other supraventricular tachycardia; Translations: [Other supraventricular tachycardia] Onset: 09-06-2024 Unclassified (1 source) Supraventricular tachycardia, unspecified (CMS-HCC); Translations: [Supraventricular tachycardia, unspecified (CMS-HCC)] Onset: 02-06-2023 Past or Other Problems Problem Classification Problem Date Documented Date Episodic/Chronic Calculus of urinary tract (1 source) Calculus of ureter; Translations: [CALCULUS OF URETER] Onset: 09-24-2021 Episodic Cardiac dysrhythmias (7 sources) Palpitations; Translations: [Palpitations] Onset: 05-31-2024 09-12-2024 Episodic Mood disorders (8 sources) Mood disorders Onset: 03-23-2024 03-23-2024 Nonspecific chest pain (20 sources) Chest pain; Translations: [Chest pain, unspecified] Onset: 02-06-2023 Resolved: 03-08-2024 02-06-2023 Episodic Other aftercare (20 sources) Long-term current use of drug therapy; Translations: [Other [facility] (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] Onset: 06-29-2023 06-29-2023 Episodic Other aftercare (3 sources) Patient encounter status; Translations: [Other manager intermediate (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] Onset: 06-29-2023 06-29-2023 Episodic Other aftercare (15 sources) Taking high risk medication; Translations: [Other [facility] (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] Onset: 03-08-2024 03-08-2024 Episodic Other lower respiratory disease (20 sources) Dyspnea on exertion; Translations: [Shortness of breath] Onset: 06-29-2023 Resolved: 12-21-2023 06-29-2023 Episodic Other non-traumatic joint disorders (14 sources) Hip pain; Translations: [Pain in right hip] Onset: 02-17-2024 02-17-2024 Episodic Residual codes; unclassified (1 source) Family history of malignant neoplasm of prostate; Translations: [FAMILY HX MALIG NEOPLASM PROSTATE] Onset: 03-13-2022 Episodic Spondylosis; intervertebral disc disorders; other back problems (20 sources) Lumbar radiculopathy; Translations: [Chronic low back pain] Onset: 12-21-2023 12-21-2023 Episodic Unclassified (12 sources) Onset: 02-10-2023 Resolved: 06-06-2024 02-10-2023 Unclassified (2 sources) Supraventricular tachycardia, unspecified; Translations: [Supraventricular tachycardia, unspecified] Onset: 08-03-2024 Unclassified (1 source) Other supraventricular tachycardia; Translations: [Other supraventricular tachycardia] Onset: 09-06-2024 Unclassified (1 source) Supraventricular tachycardia, unspecified (CMS-HCC); Translations: [Supraventricular tachycardia, unspecified (CMS-HCC)] Onset: 03-08-2024 Results Test Name Value Interpretation Reference Range Facility Alanine aminotransferase [En zymatic activity/volume] in Serum or PlasmaOrdered By: Estrellita Lynn on 09-12-2024 ALT [Catalytic activity/Vol] 23 U/L Normal 7-52 [facility] Comment on above: Performed By: #### H S TROP, MG, CK, CBC, PT, CMP, PTT #### [facility] [address] [place] [address] [place] Albumin [Mass/volume] in Ser um or Plasma by Bromocresol green (BCG) dye binding methoOrdered By: Estrellita Lynn on 09-12-2024 Albumin BCG dye [Mass/Vol] 3.9 g/dL 3.5-5.7 [facility] Alkaline phosphatase [Enzyma tic activity/volume] in Serum or PlasmaOrdered By: Estrellita Lynn on 09-12-2024 ALP [Catalytic activity/Vol] 57 U/L Normal 34-104 [facility] Comment on above: Performed By: #### H S TROP, MG, CK, CBC, PT, CMP, PTT #### [address] Aspartate aminotransferase [ Enzymatic activity/volume] in Serum or PlasmaOrdered By: Estrellita Lynn on 09-12-2024 AST [Catalytic activity/Vol] 19 U/L Normal 13-39 [facility] Comment on above: Performed By: #### H S TROP, MG, CK, CBC, PT, CMP, PTT #### [place] [address] [place] Basophils [#/volume] in Bloo d by Automated countOrdered By: Estrellita Lynn on 09-12-2024 Basophils (Bld) [#/Vol] 0.1 10*3/uL Normal 0.0-0.2 [facility] Comment on above: Result Comment: PERF ORMED BY: [place] [address] PATHOLOGIST [employer] LUDA HARMAN M.D. Performed By: #### H S TROP, MG, CK, CBC, PT, CMP, PTT #### [place] [address] [place] Basophils/100 leukocytes in Blood by Automated countOrdered By: Estrellita Lynn on 09-12-2024 Basophils/100 WBC (Bld) 0.9 % Normal . [facility] Comment on above: Performed By: #### H S TROP, MG, CK, CBC, PT, CMP, PTT #### [facility] [address] Bilirubin.total [Mass/volume ] in Serum or PlasmaOrdered By: Estrellita Lynn on 09-12-2024 Bilirubin [Mass/Vol] 0.6 mg/dL Normal 0.3-1.0 [facility] Comment on above: Performed By: #### H S TROP, MG, CK, CBC, PT, CMP, PTT #### [facility] [address] Calcium [Mass/volume] in Ser um or PlasmaOrdered By: Estrellita Lynn on 09-12-2024 Calcium [Mass/Vol] 8.7 mg/dL Normal 8.6-10.3 [facility] Comment on above: Performed By: #### H S TROP, MG, CK, CBC, PT, CMP, PTT #### [address] Carbon dioxide, total [Moles /volume] in Serum or PlasmaOrdered By: Estrellita Lynn on 09-12-2024 CO2 [Moles/Vol] 22.4 mmol/L Normal 21.0-31.0 [facility] Comment on above: Performed By: #### H S TROP, MG, CK, CBC, PT, CMP, PTT #### [address] Chloride [Moles/volume] in S joel or PlasmaOrdered By: Estrellita Lynn on 09-12-2024 Chloride [Moles/Vol] 109 mmol/L High 98-107 [facility] Comment on above: Performed By: #### H S TROP, MG, CK, CBC, PT, CMP, PTT #### [facility] [address] [place] [address] Complete Blood Count Auto Di ffon 09-12-2024 Mean Corpuscular HGB Conc 33.5 g/dL Normal 32.5-35.6 [facility] Comment on above: Performed By: #### H S TROP, MG, CK, CBC, PT, CMP, PTT #### [address] Monocytes/100 WBC (Bld) 16.81 % Normal 0.00-20.00 [facility] Comment on above: Performed By: #### H S TROP, MG, CK, CBC, PT, CMP, PTT #### [address] NRBC% 0.1 /100{WBC} Normal 0-0.5 [facility] Comment on above: Performed By: #### H S TROP, MG, CK, CBC, PT, CMP, PTT #### [address] White Blood Count 8.1 [CFU]/mL Normal 4.1-10.5 [facility] Comment on above: Performed By: #### H S TROP, MG, CK, CBC, PT, CMP, PTT #### [address] Comprehensive Metabolic Pane ruddy 09-12-2024 Albumin [Mass/Vol] 3.9 g/dL Normal 3.5-5.7 [facility] Comment on above: Performed By: #### H S TROP, MG, CK, CBC, PT, CMP, PTT #### [address] Creatinine Clr Calc Pharmacy 104.75 Normal [facility] Comment on above: Performed By: #### H S TROP, MG, CK, CBC, PT, CMP, PTT #### [address] GFR/1.73 sq M.predicted MDRD (S/P/Bld) [Vol rate/Area] mL/min/{1.73_m2} Normal [facility] Comment on above: Performed By: #### H S TROP, MG, CK, CBC, PT, CMP, PTT #### [address] Creatine kinase [Enzymatic a ctivity/volume] in Serum or PlasmaOrdered By: Estrellita Lynn on 09-12-2024 CK [Catalytic activity/Vol] 84 U/L Normal 30-223 [facility] Comment on above: Performed By: #### H S TROP, MG, CK, CBC, PT, CMP, PTT #### [facility] [address] Creatinine [Mass/volume] in Serum or PlasmaOrdered By: Estrellita Lynn on 09-12-2024 Creatinine [Mass/Vol] 0.94 mg/dL Normal 0.70-1.30 [facility] Comment on above: Performed By: #### H S TROP, MG, CK, CBC, PT, CMP, PTT #### [facility] [address] [place] [address] Eosinophils [#/volume] in Bl ood by Automated countOrdered By: Estrellita Lynn on 09-12-2024 Eosinophils (Bld) [#/Vol] 0.1 10*3/uL Normal 0.0-0.45 [facility] Comment on above: Performed By: #### H S TROP, MG, CK, CBC, PT, CMP, PTT #### [address] Eosinophils/100 leukocytes i n Blood by Automated countOrdered By: Estrellita Lynn on 09-12-2024 Eosinophils/100 WBC (Bld) 1.3 % Normal . [facility] Comment on above: Performed By: #### H S TROP, MG, CK, CBC, PT, CMP, PTT #### [facility] [address] [place] [address] Erythrocyte distribution wid th [Ratio] by Automated countOrdered By: Estrellita Lynn on 09-12-2024 Erythrocyte distribution width (RBC) [Ratio] 14.4 % Normal 12.0-14.8 [facility] Comment on above: Performed By: #### H S TROP, MG, CK, CBC, PT, CMP, PTT #### [address] Erythrocytes [#/volume] in B lood by Automated countOrdered By: Estrellita Lynn on 09-12-2024 RBC (Bld) [#/Vol] 4.96 10*6/uL Normal 3.90-5.60 [facility] Comment on above: Performed By: #### H S TROP, MG, CK, CBC, PT, CMP, PTT #### [facility] [address] Glucose [Mass/volume] in Ser um or PlasmaOrdered By: Estrellita Lynn on 09-12-2024 Glucose [Mass/Vol] 99 mg/dL Normal 70-100 [facility] Comment on above: ADA recommended refe rence rangeRandom Glucose Reference Range is dependent on time and content of last meal. Glucose of more than 200 mg/dL in a nonstressed, ambulatory subject supports the diagnosis of Diabetes Mellitus. Result Comment: [place] om Glucose Reference Range is dependent on time and content of last meal. Glucose of more than 200 mg/dL in a nonstressed, ambulatory subject supports the diagnosis of Diabetes Mellitus. ADA recommended reference range Performed By: #### H S TROP, MG, CK, CBC, PT, CMP, PTT #### [facility] [address] Hematocrit [Volume Fraction] of Blood by Automated countOrdered By: Estrellita Lynn on 09-12-2024 Hematocrit (Bld) [Volume fraction] 45.2 % Normal 38.8-50.0 [facility] Comment on above: Performed By: #### H S TROP, MG, CK, CBC, PT, CMP, PTT #### [facility] [address] Hemoglobin [Mass/volume] in BloodOrdered By: Estrellita Lynn on 09-12-2024 Hemoglobin (Bld) [Mass/Vol] 15.1 g/dL Normal 13.0-17.0 [facility] Comment on above: Performed By: #### H S TROP, MG, CK, CBC, PT, CMP, PTT #### [address] INR in Platelet poor plasma by Coagulation assayOrdered By: Estrellita Lynn on 09-12-2024 INR Coag (PPP) [Relative time] 1.1 {INR} Normal [facility] Comment on above: INR Therapeutic Rang e A) Pre- and Peroperative OAT started two weeks before surgery. NOT HIP SURGERY: 1.5 - 2.5 HIP SURGERY: 2 - 3B) Primary and secondary prevention of venous THROMBOSIS: 2 - 3C) Active venous thrombosis, pulmonary embolismand prevention of recurrent venous thrombosis: 2 - 3D) Prevention of arterial thromboembolismincluding patients with mechanical heart valves: 3 - 4.5 Result Comment: INR Therapeutic Range A) Pre- and Peroperative OAT started two weeks before surgery. NOT HIP SURGERY: 1.5 - 2.5 HIP SURGERY: 2 - 3 B) Primary and secondary prevention of venous THROMBOSIS: 2 - 3 C) Active venous thrombosis, pulmonary embolism and prevention of recurrent venous thrombosis: 2 - 3 D) Prevention of arterial thromboembolism including patients with mechanical heart valves: 3 - 4.5 Performed By: #### H S TROP, MG, CK, CBC, PT, CMP, PTT #### [address] Leukocytes [#/volume] correc surekha for nucleated erythrocytes in Blood by Automated counOrdered By: Estrellita Lynn on 09-12-2024 WBC corrected for nucl RBC Auto (Bld) [#/Vol] 8.1 10*3/uL 4.1-10.5 [facility] Leukocytes [#/volume] in Blo od by Automated countOrdered By: Estrellita Lynn on 09-12-2024 WBC (Bld) [#/Vol] 8.1 10*3/uL Normal 4.1-10.5 [facility] Comment on above: Performed By: #### H S TROP, MG, CK, CBC, PT, CMP, PTT #### [facility] [address] [place] [address] [place] Lymphocytes [#/volume] in Bl ood by Automated countOrdered By: Estrellita Lynn on 09-12-2024 Lymphocytes (Bld) [#/Vol] 2.1 10*3/uL Normal 1.00-4.8 [facility] Comment on above: Performed By: #### H S TROP, MG, CK, CBC, PT, CMP, PTT #### [place] [address] [place] Lymphocytes/100 leukocytes i n Blood by Automated countOrdered By: Estrellita Lynn on 09-12-2024 Lymphocytes/100 WBC (Bld) 25.2 % Normal . [facility] Comment on above: Performed By: #### H S TROP, MG, CK, CBC, PT, CMP, PTT #### [facility] [address] MCH [Entitic mass] by Automa surekha countOrdered By: Estrellita Lynn on 09-12-2024 MCH (RBC) [Entitic mass] 30.5 pg Normal 27.5-35.2 [facility] Comment on above: Performed By: #### H S TROP, MG, CK, CBC, PT, CMP, PTT #### [facility] [address] MCHC Auto (RBC) [Mass/Vol]Or dered By: Estrellita Lynn on 09-12-2024 MCHC (RBC) [Mass/Vol] 33.5 g/dL 32.5-35.6 [facility] MCV [Entitic volume] by Auto mated countOrdered By: Estrellita Lynn on 09-12-2024 MCV (RBC) [Entitic vol] 91.0 fL Normal 83.5-101 [facility] Comment on above: Performed By: #### H S TROP, MG, CK, CBC, PT, CMP, PTT #### [address] Magnesium [Mass/volume] in S joel or PlasmaOrdered By: Estrellita Lynn on 09-12-2024 Magnesium [Mass/Vol] 2.1 mg/dL Normal 1.9-2.7 [facility] Comment on above: Result Comment: PERF ORMED BY: [place] [address] PATHOLOGIST [employer] LU[employer] HARMAN M.D. Performed By: #### H S TROP, MG, CK, CBC, PT, CMP, PTT #### [address] Monocyte distribution width [Entitic volume] in Blood by AutomatedOrdered By: Estrellita Lynn on 09-12-2024 Monocyte distribution width Auto (Bld) [Entitic vol] 16.81 % 0.00-20.00 [facility] Monocytes [#/volume] in Bloo d by Automated countOrdered By: Estrellita Lynn on 09-12-2024 Monocytes (Bld) [#/Vol] 0.6 10*3/uL Normal 0.0-0.8 [facility] Comment on above: Performed By: #### H S TROP, MG, CK, CBC, PT, CMP, PTT #### [facility] [address] [place] [address] [place] Monocytes/100 leukocytes in Blood by Automated countOrdered By: Estrellita Lynn on 09-12-2024 Monocytes/100 WBC (Bld) 7.9 % Normal . [facility] Comment on above: Performed By: #### H S TROP, MG, CK, CBC, PT, CMP, PTT #### [facility] [address] Neutrophils [#/volume] in Bl ood by Automated countOrdered By: Estrellita Lynn on 09-12-2024 Neutrophils (Bld) [#/Vol] 5.3 10*3/uL Normal 1.8-7.7 [facility] Comment on above: Performed By: #### H S TROP, MG, CK, CBC, PT, CMP, PTT #### [facility] [address] [place] [address] Neutrophils/100 leukocytes i n Blood by Automated countOrdered By: Estrellita Lynn on 09-12-2024 Neutrophils/100 WBC (Bld) 64.7 % Normal . [facility] Comment on above: Performed By: #### H S TROP, MG, CK, CBC, PT, CMP, PTT #### [facility] [address] [place] [address] No Panel InformationOrdered By: Estrellita Lynn on 09-12-2024 Estimated GFR (CKD-EPI) > 60.0 mL/Min [facility] Pharmacy Creatinine Clearance (Chem 104.75 [facility] Nucleated erythrocytes [Pres ence] in Blood by Automated countOrdered By: Estrellita Lynn on 09-12-2024 Nucleated RBC Auto Ql (Bld) 0.1 /100{WBC} 0-0.5 [facility] Partial Thromboplastin Timeo n 09-12-2024 aPTT Coag (Bld) [Time] 43.9 s High 25.1-36.5 Th e [facility] Comment on above: Result Comment: A he matocrit value greater than 55% may lead to inaccurate results in coagulation testing. Patients having hematocrit values >55% require a special collection tube for coagulation studies. Please contact the laboratory at [phone] for redraw instructions. PERFORMED BY: [place] [address] PATHOLOGIST [employer] HARMAN M.D. Performed By: #### H S TROP, MG, CK, CBC, PT, CMP, PTT #### [facility] [address] [place] [address] Platelet mean volume [Entiti c volume] in Blood by Automated countOrdered By: Estrellita Lynn on 09-12-2024 Platelet mean volume (Bld) [Entitic vol] 9.9 fL Normal 6.6-10.1 [facility] Comment on above: Performed By: #### H S TROP, MG, CK, CBC, PT, CMP, PTT #### [facility] [address] [place] [address] [place] Platelets [#/volume] in Bloo d by Automated countOrdered By: Estrellita Lynn on 09-12-2024 Platelets (Bld) [#/Vol] 179 10*3/uL Normal 150-450 [facility] Comment on above: Performed By: #### H S TROP, MG, CK, CBC, PT, CMP, PTT #### [place] [address] [place] Potassium [Moles/volume] in Serum or PlasmaOrdered By: Estrellita Lynn on 09-12-2024 Potassium [Moles/Vol] 3.8 mmol/L Normal 3.5-5.1 [facility] Comment on above: Performed By: #### H S TROP, MG, CK, CBC, PT, CMP, PTT #### [place] [address] [place] Protein [Mass/volume] in Ser um or PlasmaOrdered By: Estrellita Lynn on 09-12-2024 Protein [Mass/Vol] 6.4 g/dL Normal 6.4-8.9 [facility] Comment on above: Performed By: #### H S TROP, MG, CK, CBC, PT, CMP, PTT #### [facility] [address] [place] [address] Prothrombin time (PT)Ordered By: Estrellita Lynn on 09-12-2024 PT Coag (PPP) [Time] 12.7 s Normal 9.0-12.9 [facility] Comment on above: A hematocrit value g reater than 55% may lead to inaccurate results in coagulation testing. Patients having hematocrit values >55% require a special collection tube for coagulation studies. Please contact the laboratory at [phone] for redraw instructions. Result Comment: A he matocrit value greater than 55% may lead to inaccurate results in coagulation testing. Patients having hematocrit values >55% require a special collection tube for coagulation studies. Please contact the laboratory at [phone] for redraw instructions. Performed By: #### H S TROP, MG, CK, CBC, PT, CMP, PTT #### [address] Serum globulin measurement b y calculation (mass/volume)Ordered By: Estrellita Lynn on 09-12-2024 Globulin (S) [Mass/Vol] 2.5 g/dL [facility] Comment on above: Performed By: #### H S TROP, MG, CK, CBC, PT, CMP, PTT #### [facility] [address] [place] [address] Serum or plasma albumin/glob ulin mass ratioOrdered By: Estrellita Lynn on 09-12-2024 Albumin/Globulin [Mass ratio] 1.6 {ratio} [facility] Comment on above: Performed By: #### H S TROP, MG, CK, CBC, PT, CMP, PTT #### [address] Serum or plasma anion gap de terminationOrdered By: Estrellita Lynn on 09-12-2024 Anion gap [Moles/Vol] 11.4 mmol/L Normal 6.0-15.0 [facility] Comment on above: Performed By: #### H S TROP, MG, CK, CBC, PT, CMP, PTT #### [address] Sodium [Moles/volume] in Ser um or PlasmaOrdered By: Estrellita Lynn on 09-12-2024 Sodium [Moles/Vol] 139 mmol/L Normal 136-145 [facility] Comment on above: Performed By: #### H S TROP, MG, CK, CBC, PT, CMP, PTT #### [facility] [address] Troponin I High Sensitivityo n 09-12-2024 Troponin I High Sensitivity 15 Normal 0-20 [facility] Comment on above: Result Comment: The Troponin units of report have been changed to meet the Chest Pain Accreditation requirement, element EC5.M1l2. Troponin units are changed from pg/ml to ng/L. Also, the decimal is removed and results are in whole numbers. PERFORMED BY: [place] [address] PATHOLOGIST [employer] LU[employer] HARMAN M.D. Performed By: #### H S TROP, MG, CK, CBC, PT, CMP, PTT #### [address] Troponin I High Sensitivity 14 Normal 0-20 [facility] Comment on above: Result Comment: The Troponin units of report have been changed to meet the Chest Pain Accreditation requirement, element EC5.M1l2. Troponin units are changed from pg/ml to ng/L. Also, the decimal is removed and results are in whole numbers. PERFORMED BY: [place] [address] PATHOLOGIST [employer] HARMAN M.D. Performed By: #### H S TROP, MG, CK, CBC, PT, CMP, PTT #### [address] Troponin I.cardiac [Mass/vol ume] in Serum or Plasma by Detection limit <= 0.01 ng/mLOrdered By: Estrellita Lynn on 09-12-2024 Troponin I.cardiac DL <= 0.01 ng/mL [Mass/Vol] 15 ng/L 0-20 [facility] Comment on above: The Troponin units o f report have been changed to meet the Chest Pain Accreditation requirement, element EC5.M1l2. Troponin units are changed from pg/ml to ng/L. Also, the decimal is removed and results are in whole numbers. Urea nitrogen [Mass/volume] in Serum or PlasmaOrdered By: Estrellita Lynn on 09-12-2024 Urea nitrogen [Mass/Vol] 19 mg/dL Normal - [facility] Comment on above: Performed By: #### H S TROP, MG, CK, CBC, PT, CMP, PTT #### [address] XR chest 2V*on 09-12-2024 XR chest 2V* [facility] [place] [address] [place] [address] XRay Report Signed Patient: Luis Luis MR#: [id number] [birth year]28 : 1950 Acct:[id number] Age/Sex: 74 / M ADM Date: 09/11/24 Loc: ER Room: Type: [facility] ER Attending Dr: Copies to: Estrellita Lynn MD Ordering Provider: Estrellita Lynn MD Date of Service: 09/12/24 XR/XR chest 2V*: Arrhythmia/Palpitations Plain film chest 2 view HISTORY: Cardiac arrhythmia. Palpitations. COMPARISON: None FINDINGS: SUPPORT DEVICES: None POSTSURGICAL CHANGES: None HEART: Within normal limits PULMONARY JELENA: Within normal limits MEDIASTINUM: Unremarkable LUNGS AND PLEURA: No acute lung process, pleural effusion or pneumothorax identified. Chronic basilar lung changes. BONY STRUCTURES: Intact ADDITIONAL FINDINGS None XR/XR chest 2V* IMPRESSION: No acute process. Impression dictated by: Preston Koch M.D. 09/12/2024 9:45 AM Dictation Location: [place] [address] Transcribed By: [facility] 09/12/24 0945 Dictated By: Preston Koch DO 09/12/24 0944 Signed By: 09/12/2445 Normal [facility] aPTT in Platelet poor plasma by Coagulation assayOrdered By: Estrellita Lynn on 09-12-2024 aPTT Coag (PPP) [Time] 43.9 s High 25.1-36.5 [facility] Comment on above: A hematocrit value g reater than 55% may lead to inaccurate results in coagulation testing. Patients having hematocrit values >55% require a special collection tube for coagulation studies. Please contact the laboratory at [phone] for redraw instructions. ECG 12 lead ECGon 09-11-2024 ECG 12 lead ECG [facility] [address] Electrocardiograph Report Signed Patient: Luis Luis MR#: [id number] 2028 : 1950 Acct:[id number] Age/Sex: 74 / M ADM Date: 09/11/24 Loc: ER Room: Type: [facility] ER Attending Dr: Ordering Provider: Estrellita Lynn MD Date of Service: 09/11/24 ECG/ECG 12 lead ECG: Arrhythmia/Palpitations Copies to: Test Reason : Blood Pressure : 129/77 mmHG Vent. Rate : 69 BPM Atrial Rate : 69 BPM P-R Int : 186 ms QRS Dur : 158 ms QT Int : 416 ms P-R-T Axes : 49 -15 13 degrees QTcB Int : 445 ms Normal sinus rhythm Right bundle branch block Confirmed by Estrellita Lynn MD ([id number]) on 09/12/2024 1:55:09 AM Referred By: Electronically Signed By: Estrellita Lynn MD Transcribed By: [facility] Signed By Estrellita Lynn MD 08/30 06/24 2520 Normal [facility] ACT Coag (Bld)on 08-03-2024 Interpretation and review of laboratory results Abnormal [facility] Interpretation and review of laboratory results Abnormal [facility] Interpretation and review of laboratory results Abnormal [facility] Interpretation and review of laboratory results Abnormal [facility] ACTIVATED CLOTTING TIME LOWo n 08-03-2024 ACT Coag (Bld) 376 s [facility] Comment on above: Target ACT range kalia l vary based on the patient population, clinical status, and surgical intervention occurring. ACT Coag (Bld) 335 s [facility] Comment on above: Target ACT range kalia l vary based on the patient population, clinical status, and surgical intervention occurring. ACT Coag (Bld) 327 s [facility] Comment on above: Target ACT range kalia l vary based on the patient population, clinical status, and surgical intervention occurring. ACT Coag (Bld) [facility] Comment on above: ABOVE LIMIT FOR SUSY CE Target ACT range will vary based on the patient population, clinical status, and surgical intervention occurring. Activated clotting timeon ACT Coag (Bld) [address] Comment on above: Result Comment: Targ et ACT range will vary based on the patient population, clinical status, and surgical intervention occurring. Performed By: #### 3 184-9 #### SABRINA SUMMERS ([id number]) [facility] ([facility]) [address] [place] [address] ACT Coag (Bld) [address] Comment on above: Result Comment: Targ et ACT range will vary based on the patient population, clinical status, and surgical intervention occurring. Performed By: #### 3 184-9 #### SABRINA SUMMERS ([id number]) [facility] ([facility]) [address] [place] [address] ACT Coag (Bld) [address] Comment on above: Result Comment: Targ et ACT range will vary based on the patient population, clinical status, and surgical intervention occurring. Performed By: #### 3 184-9 #### SABRINA SUMMERS ([id number]) [facility] ([facility]) [address] [place] [address] ACT Coag (Bld) s [address] Comment on above: Result Comment: ABOV E LIMIT FOR DEVICE Target ACT range will vary based on the patient population, clinical status, and surgical intervention occurring. Performed By: #### 3 184-9 #### SABRINA SUMMERS ([id number]) [facility] ([facility]) [address] [place] [address] Blood type and Indirect anti body screen panel (Bld)on 08-03-2024 ABO group Nom (Bld) A [facility] Blood group antibody screen Ql Negative [facility] D Ag Ql (Bld) Positive [facility] ABO group Nom (Bld) A Normal [facility] Comment on above: Performed By: #### 3 4532-2 #### SABRINA SUMMERS ([id number]) [facility] ([facility]) [address] [place] [address] Blood group antibody screen Ql Negative [facility] Comment on above: Performed By: #### 3 4532-2 #### SABRINA SUMMERS ([id number]) [facility] ([facility]) [address] [place] [address] D Ag Ql (Bld) Positive [facility] Comment on above: Performed By: #### 3 4532-2 #### SABRINA SUMMERS ([id number]) [facility] ([facility]) [address] [place] [address] CBC W Auto Differential pane l (Bld)on 08-03-2024 Basophils (Bld) [#/Vol] 0.07 10*3/uL [facility] Basophils/100 WBC (Bld) 1 % 0.0 - 2.0 % [facility] Eosinophils (Bld) [#/Vol] 0.09 10*3/uL [facility] Eosinophils/100 WBC (Bld) 1.3 % 0.0 - 6.0 % [facility] Erythrocyte distribution width (RBC) [Ratio] 13.3 % 11.5 - 14.5 % [facility] Hematocrit (Bld) [Volume fraction] 46.7 % 41.0 - 52.0 % [facility] Hemoglobin (Bld) [Mass/Vol] 15.9 g/dL 13.5 - 17.5 g/dL [facility] Immature granulocytes (Bld) [#/Vol] 0.01 10*3/uL [facility] Immature granulocytes/100 WBC (Bld) 0.1 % 0.0 - 0.9 % [facility] Comment on above: Immature Granulocyte Count (IG) includes promyelocytes, myelocytes and metamyelocytes but does not include bands. Percent differential counts (%) should be interpreted in the context of the absolute cell counts (cells/UL). Lymphocytes (Bld) [#/Vol] 2.09 10*3/uL [facility] Lymphocytes/100 WBC (Bld) 31.1 % 13.0 - 44.0 % [facility] MCH (RBC) [Entitic mass] 30.8 pg 26.0 - 34.0 pg [facility] MCHC (RBC) [Mass/Vol] 34 g/dL 32.0 - 36.0 g/dL [facility] MCV (RBC) [Entitic vol] 91 fL 80 - 100 fL [facility] Monocytes (Bld) [#/Vol] 0.5 10*3/uL [facility] Monocytes/100 WBC (Bld) 7.4 % 2.0 - 10.0 % [facility] Neutrophils (Bld) [#/Vol] 3.97 10*3/uL [facility] Comment on above: Percent differential counts (%) should be interpreted in the context of the absolute cell counts (cells/uL). Neutrophils/100 WBC (Bld) 59.1 % 40.0 - 80.0 % [facility] Nucleated RBC/100 WBC (Bld) [Ratio] 0 % [facility] Platelets (Bld) [#/Vol] 182 10*3/uL [facility] RBC (Bld) [#/Vol] 5.16 10*6/uL [facility] WBC (Bld) [#/Vol] 6.7 10*3/uL [facility] Basophils (Bld) [#/Vol] 0.07 x10*3/uL Normal 0.00-0.10 [facility] Comment on above: Performed By: #### 5 7021-8 #### SABRINA SUMMERS ([id number]) [facility] ([facility]) [address] [place] [address] 75332 Basophils/100 WBC (Bld) 1.0 % Normal 0.0-2.0 [facility] Comment on above: Performed By: #### 5 7021-8 #### SABRINA SUMMERS ([id number]) [facility] ([facility]) [address] [place] [address] 17451 Eosinophils (Bld) [#/Vol] 0.09 x10*3/uL Normal 0.00-0.40 [facility] Comment on above: Performed By: #### 7021-8 #### SABRINA SUMMERS ([id number]) [facility] ([facility]) [address] [place] [address] 15514 Eosinophils/100 WBC (Bld) 1.3 % Normal 0.0-6.0 [facility] Comment on above: Performed By: #### 7021-8 #### SABRINA SUMMERS ([id number]) [facility] ([facility]) [address] [place] [address] 50931 Erythrocyte distribution width (RBC) [Ratio] 13.3 % Normal 11.5-14.5 [facility] Comment on above: Performed By: #### 5 7021-8 #### SABRINA SUMMERS ([id number]) [facility] ([facility]) [address] [place] [address] 89806 Hematocrit (Bld) [Volume fraction] 46.7 % Normal 41.0-52.0 [facility] Comment on above: Performed By: #### 5 7021-8 #### SABRINA SUMMERS ([id number]) [facility] ([facility]) [address] [place] [address] 44260 Hemoglobin (Bld) [Mass/Vol] 15.9 g/dL Normal 13.5-17.5 [facility] Comment on above: Performed By: #### 5 7021-8 #### SABRINA SUMMERS ([id number]) [facility] ([facility]) [address] [place] [address] 18947 Immature granulocytes (Bld) [#/Vol] 0.01 x10*3/uL Normal 0.00-0.50 [facility] Comment on above: Performed By: #### 5 7021-8 #### SABRINA MARTIN [employer]AR [employer]ES ([id number]) [facility] ([facility]) [address] [place] [address] 74137 Immature granulocytes/100 WBC (Bld) 0.1 % Normal 0.0-0.9 [facility] Comment on above: Result Comment: Isabel ture Granulocyte Count (IG) includes promyelocytes, myelocytes and metamyelocytes but does not include bands. Percent differential counts (%) should be interpreted in the context of the absolute cell counts (cells/UL). Performed By: #### 5 7021-8 #### SABRINA SUMMERS ([id number]) [facility] ([facility]) [address] [place] [address] 41736 Lymphocytes (Bld) [#/Vol] 2.09 x10*3/uL Normal 0.80-3.00 [facility] Comment on above: Performed By: #### 5 7021-8 #### SABRINA MARTIN RIO KIKE ([id number]) [facility] ([facility]) [address] [place] [address] 80754 Lymphocytes/100 WBC (Bld) 31.1 % Normal 13.0-44.0 [facility] Comment on above: Performed By: #### 5 7021-8 #### SABRINA MARTIN RIO KIKE ([id number]) [facility] ([facility]) [address] [place] [address] 15696 MCH (RBC) [Entitic mass] 30.8 pg Normal 26.0-34.0 [facility] Comment on above: Performed By: #### 5 7021-8 #### SABRINA MARTIN RIO KIKE ([id number]) [facility] ([facility]) [address] [place] [address] 75847 MCHC (RBC) [Mass/Vol] 34.0 g/dL Normal 32.0-36.0 [facility] Comment on above: Performed By: #### 5 7021-8 #### SABRINA SUMMERS ([id number]) [facility] ([facility]) [address] [place] [address] 45668 MCV (RBC) [Entitic vol] 91 fL Normal 80-100 [facility] Comment on above: Performed By: #### 5 7021-8 #### SABRINA SUMMERS ([id number]) [facility] ([facility]) [address] [place] [address] 05221 Monocytes (Bld) [#/Vol] 0.50 x10*3/uL Normal 0.05-0.80 [facility] Comment on above: Performed By: #### 5 7021-8 #### SABRINA SUMMERS ([id number]) [facility] ([facility]) [address] [place] [address] 99315 Monocytes/100 WBC (Bld) 7.4 % Normal 2.0-10.0 [facility] Comment on above: Performed By: #### 5 7021-8 #### SABRINA SUMMERS ([id number]) [facility] ([facility]) [address] [place] [address] 08393 Neutrophils (Bld) [#/Vol] 3.97 x10*3/uL Normal 1.60-5.50 [facility] Comment on above: Result Comment: Perc ent differential counts (%) should be interpreted in the context of the absolute cell counts (cells/uL). Performed By: #### 5 7021-8 #### SABRINA SUMMERS ([id number]) [facility] ([facility]) [address] [place] [address] 78132 Neutrophils/100 WBC (Bld) 59.1 % Normal 40.0-80.0 [facility] Comment on above: Performed By: #### 5 7021-8 #### SABRINA SUMMERS ([id number]) [facility] ([facility]) [address] [place] [address] 23487 Nucleated RBC/100 WBC (Bld) [Ratio] 0.0 /100 WBCs Normal 0.0-0.0 [facility] Comment on above: Performed By: #### 5 7021-8 #### SABRINA SUMMERS ([id number]) [facility] ([facility]) [address] [place] [address] 15137 Platelets (Bld) [#/Vol] 182 x10*3/uL Normal 150-450 [facility] Comment on above: Performed By: #### 5 7021-8 #### SABRINA SUMMERS ([id number]) [facility] ([facility]) [address] [place] [address] 60466 RBC (Bld) [#/Vol] 5.16 x10*6/uL Normal 4.50-5.90 [facility] Comment on above: Performed By: #### 5 7021-8 #### SABRINA SUMMERS ([id number]) [facility] ([facility]) [address] [place] [address] 34946 WBC (Bld) [#/Vol] 6.7 x10*3/uL Normal 4.4-11.3 [facility] Comment on above: Performed By: #### 5 7021-8 #### SABRINA SUMMERS ([id number]) [facility] ([facility]) [address] [place] [address] 52731 Comprehensive metabolic 2000 panelon 08-03-2024 Albumin BCP dye [Mass/Vol] 4.3 g/dL 3.4 - 5.0 g/dL [facility] ALP [Catalytic activity/Vol] 53 U/L 33 - 136 U/L [facility] ALT With P-5'-P [Catalytic activity/Vol] 27 U/L 10 - 52 U/L [facility] Comment on above: Patients treated wit h Sulfasalazine may generate falsely decreased results for ALT. Anion gap [Moles/Vol] 10 mmol/L 10 - 2 0 mmol/L [facility] AST With P-5'-P [Catalytic activity/Vol] 16 U/L 9 - 39 U/L [facility] Bilirubin [Mass/Vol] 0.9 mg/dL 0.0 - 1 .2 mg/dL [facility] Calcium [Mass/Vol] 9.1 mg/dL 8.6 - 10. 3 mg/dL [facility] Chloride [Moles/Vol] 107 mmol/L 98 - 10 7 mmol/L [facility] CO2 [Moles/Vol] 26 mmol/L 21 - 32 mmol/L [facility] Creatinine [Mass/Vol] 0.86 mg/dL 0.50 - 1.30 mg/dL [facility] eGFR - PINF [facility] Comment on above: Calculations of maddy mated GFR are performed using the 2020 CKD-EPI Study Refit equation without the race variable for the IDMS-Traceable creatinine methods. https://jasn.asnjournals.org/content/early/ASN.86306 90406 Glucose [Mass/Vol] 90 mg/dL 74 - 99 mg/dL [facility] Interpretation and review of laboratory results Normal [facility] Potassium [Moles/Vol] 3.9 mmol/L 3.5 - 5.3 mmol/L [facility] Protein [Mass/Vol] 6.8 g/dL 6.4 - 8.2 g/dL [facility] Sodium [Moles/Vol] 139 mmol/L 136 - 145 mmol/L [facility] Urea nitrogen [Mass/Vol] 16 mg/dL 6 - 23 mg/dL [facility] Albumin BCP dye [Mass/Vol] 4.3 g/dL Normal 3.4-5.0 [facility] Comment on above: Performed By: #### 2 4323-8 #### SABRINA SUMMERS ([id number]) [facility] ([facility]) [address] [place] [address] 50509 ALP [Catalytic activity/Vol] 53 U/L Normal 33-136 [facility] Comment on above: Performed By: #### 2 4323-8 #### SABRINA SUMMERS ([id number]) [facility] ([facility]) [address] [place] [address] 06498 ALT With P-5'-P [Catalytic activity/Vol] 27 U/L Normal 10-52 [facility] Comment on above: Result Comment: Leidy ents treated with Sulfasalazine may generate falsely decreased results for ALT. Performed By: #### 2 4323-8 #### MICHELLEIBELIMEHRDAD SUMMERS ([id number]) [facility] ([facility]) [address] [place] [address] 15661 Anion gap [Moles/Vol] 10 mmol/L Normal 10-20 [facility] Comment on above: Performed By: #### 2 4323-8 #### MICHELLEIBELIMEHRDAD SUMMERS ([id number]) [facility] ([facility]) [address] [place] [address] 11998 AST With P-5'-P [Catalytic activity/Vol] 16 U/L Normal 9-39 [facility] Comment on above: Performed By: #### 2 4323-8 #### ANAIBELIMEHRDAD MARTINYSABEL KIKE ([id number]) [facility] ([facility]) [address] [place] [address] 44618 Bilirubin [Mass/Vol] 0.9 mg/dL Normal 0.0-1.2 [facility] Comment on above: Performed By: #### 2 4323-8 #### MICHELLEIBALEJANDRA MARTIN RIO KIKE ([id number]) [facility] ([facility]) [address] [place] [address] 32438 Calcium [Mass/Vol] 9.1 mg/dL Normal 8.6-10.[address] [facility] Comment on above: Performed By: #### 2 4323-8 #### ANAIBELIMEHRDAD YSABEL KIKE ([id number]) [facility] ([facility]) [address] [place] [address] 72974 Chloride [Moles/Vol] 107 mmol/L Normal 98-107 [facility] Comment on above: Performed By: #### 2 4323-8 #### ANAIBELIMEHRDAD YSABEL KIKE ([id number]) [facility] ([facility]) [address] [place] [address] 39263 CO2 [Moles/Vol] 26 mmol/L Normal 21-32 [facility] Comment on above: Performed By: #### 2 4323-8 #### SABRINA SUMMERS ([id number]) [facility] ([facility]) [address] [place] [address] Creatinine [Mass/Vol] 0.86 mg/dL Normal 0.50-1.30 [facility] Comment on above: Performed By: #### 2 4323-8 #### SABRINA SUMMERS ([id number]) [facility] ([facility]) [address] [place] [address] GFR/1.73 sq M.predicted MDRD (S/P/Bld) [Vol rate/Area] mL/min/{1.73_m2} Normal >60 [facility] Comment on above: Result Comment: Calc ulations of estimated GFR are performed using the 2020 CKD-EPI Study Refit equation without the race variable for the IDMS-Traceable creatinine methods. https://jasn.asnjournals.org/content//ASN.08406 76596 Performed By: #### 2 4323-8 #### SABRINA SUMMERS ([id number]) [facility] ([facility]) [address] [place] [address] 75111 Glucose [Mass/Vol] 90 mg/dL Normal 74-[address] [facility] Comment on above: Performed By: #### 2 4323-8 #### SBARINA SUMMERS ([id number]) [facility] ([facility]) [address] [place] [address] Potassium [Moles/Vol] 3.9 mmol/L Normal 3.5-5.3 [facility] Comment on above: Performed By: #### 2 4323-8 #### SABRINA SUMMERS ([id number]) [facility] ([facility]) [address] [place] [address] 54316 Protein [Mass/Vol] 6.8 g/dL Normal 6.4-8.[address] [facility] Comment on above: Performed By: #### 2 4323-8 #### SABRINA SUMMERS ([id number]) [facility] ([facility]) [address] [place] [address] Sodium [Moles/Vol] 139 mmol/L Normal 136-[address] [facility] Comment on above: Performed By: #### 2 4323-8 #### SABRINA SUMMERS ([id number]) [facility]) [address] [place] [address] Urea nitrogen [Mass/Vol] 16 mg/dL Normal 6-23 [facility] Comment on above: Performed By: #### 2 4323-8 #### SABRINA SUMMERS ([id number]) [facility] ([facility]) [address] [place] [address] 60368 ECG 12-LEADon 08-03-2024 ECG 12-LEAD Ventricular Rate 93 Atrial Rate 93 P-R Interval 186 QRS Duration 166 Q-T Interval 432 QTC Calculation(Bazett) 537 P [employer] 55 R [employer] 73 T [employer] 16 QRS Count 16 Q Onset 217 P Onset 124 P Offset 193 T Offset 433 QTC Fredericia 500 Diagnosis Normal sinus rhythm Right bundle branch block Cannot rule out Inferior infarct , age undetermined Abnormal ECG When compared with ECG of 03-AUG-2024 12:09, (unconfirmed) No significant change was found Confirmed by Jarrett Coppola ([id number]) on 08/05/2024 9:04:48 PM Normal [facility] ECG 12-LEAD Ventricular Rate 70 Atrial Rate 70 P-R Interval 188 QRS Duration 158 Q-T Interval 450 QTC Calculation(Bazett) 486 P [employer] 48 R [employer] 59 T [employer] 16 QRS Count 11 Q Onset 219 P Onset 125 P Offset 187 T Offset 444 QTC Fredericia 474 Diagnosis Normal sinus rhythm with sinus arrhythmia Right bundle branch block Abnormal ECG When compared with ECG of 13-JUN-2024 11:12, Premature supraventricular complexes are no longer Present Confirmed by Jarrett Coppola ([id number]) on 08/04/2024 2:11:13 PM Normal [facility] Electrophysiology studyon Addendum by Mikaela Temple MD on 08/03/2024 4:03 PM EDT Images from the original result were not included. Successful pulmonary vein isolation by radiofrequency ablation with demonstrated entrance block and exit block. Successful cavotricuspid isthmus ablation (aka CTI line) via RF ablation with block across the CTI. Frequent episodes of hemodynamically unstable atrial tachycardia requiring DCCVx 2. Would reliably terminate with atrial overdrive pacing. Due to hemodynamic instability, atrial tachycardia was unmappable. However, it was likely arising from the right inferior pulmonary vein. After pulmonary vein isolation, atrial tachycardia was no longer inducible. EP study showed: - Decremental AV node conduction - No evidence for infrahisian disease pre- nor post-ablation - No accessory pathway - Dual AV marcia physiology without inducible SVT - No inducible SVT Paroxysmal Atrial Fibrillation Ablation Procedures Pulmonary Vein Isolation (38806), LA Pacing and recording (40393), 3D Mapping (51519), Transeptal Catheterization (30930), His Bundle Recording (78434), Ultrasound Guided vascular access (40889), Intracardiac Echocardiogram (87184), Additional SVT Ablation (30489) Patient history: Please see attached H&P Procedure narrative: The risks, benefits, and alternatives to the procedure were explained to the patient and informed consent was obtained. After informed written consent was obtained the patient was transported to the electrophysiology laboratory in the post absorptive, non-sedated state. The team verification process was completed prior to the start of the procedure. Written consent and a completed procedural sedation form were confirmed. Allergies/Adverse reactions were noted and patient teaching was performed. The patient was positioned on table and bilateral arm supports with soft cushions and all pressure points were padded. A large diameter grounding pad was applied to the patient's thigh. ECG electrodes and a set of hands-free defibrillator pads were applied to the patient. A MCL/12 lead ECG was continuously monitored throughout the procedure. Noninvasive blood pressure, oxygen saturation, and capnography were monitored throughout the procedure. Supplemental oxygen was delivered via nasal cannula or facemask. General anesthesia was administered throughout the procedure by our staff anesthesiology service. Please see their notations for intubation and sedation. Throughout the procedure the patient's comfort (pain scale) and level of sedation (sedation scale) were noted every 5 minutes. VENOUS ACCESS: After general anesthesia, femoral access was achieved utilizing the Seldinger technique with a cook needle under ultrasound guidance. One 8 FR sheath and one 9Fr sheath were placed in the right femoral veins. Via the right femoral vein 9Fr short sheath an ICE catheter was advanced into the mid RA for continuous ultrasound guidance and into the RVOT to evaluate for an effusion. After access was obtained, a bolus injection of weight based heparin 150 units/kg was administered. The Activated Clotting Time maintained between 350-400 secs with additional boluses q 30 minutes as necessary. TRANSSEPTAL ACCESS: A transseptal atrial puncture was performed using intracardiac ultrasound guidance. A long J-tip wire was passed through the superior right femoral vein 8 Fr sheath into the SVC, the 8Fr sheath was subsequently removed. A Vizigo sheath was advanced over wire into the SVC. The wire was removed and the BRK needle was advanced into the sheath. The Vizigo with the BRK needle were dragged from the SVC along the septum until engagement of the Fossa Ovalis was confirmed by interatrial tenting seen under intracardiac ultrasound guidance. The BRK needle was advanced into the left atrium the needle position confirmed with ICE. A SafeSept wire was advanced into the LSPV. The sheath with dilator were advanced carefully over the needle into the body of the left atrium. Once the Vizigo sheath was confirmed in the left atrium via intracardiac ultrasound, the wire and dilator were removed. The sheath was attached to pressure tubing and a 25cc/hr drip of heparinized saline maintained. The ICE catheter was exchanged for a decapolar CS catheter if needed for pacing during the case. MAPPING: Prior to transseptal, a right atrial shell was reconstructed using ablation catheter FAM. The His, phrenic nerve, and CS were identified using the ablation catheter on FAM. The ICE catheter was advanced into the RVOT. The epicardial space of the heart, including around the RV and LV, was evaluated and no effusion was noted. After transseptal access, an Octaray catheter was advanced into the left atrium through the Vizigo sheath. A 3-D shell representing the left atrium and pulmonary veins was constructed by use of the CARTO Sound mapping syste (more content not included)... [facility] Work Phone: [facility] Work Phone: No Panel Informationon 08-03 Dispense Status [facility] PRODUCT BLOOD TYPE 6200 [facility] PRODUCT CODE [id number] [facility] Unit ABO A [facility] Unit RH Positive [facility] UNIT VOLUME 350 [facility] XM INTEP COMP [facility] PT and aPTT panel Coag (PPP) on 08-03-2024 aPTT Coag (PPP) [Time] 43 s High [facility] INR Coag (PPP) [Relative time] 1.1 {INR} 0.9 - 1.1 [facility] Interpretation and review of laboratory results Abnormal [facility] PT Coag (PPP) [Time] 11.9 s [facility] The APTT is no longe r used for monitoring Unfractionated Heparin Therapy. For monitoring Heparin Therapy, use the Heparin Assay. [facility] aPTT Coag (PPP) [Time] 43 s High 26-36 [facility] Comment on above: Order Comment: The A PTT is no longer used for monitoring Unfractionated Heparin Therapy. For monitoring Heparin Therapy, use the Heparin Assay. Performed By: #### 3 4529-8 #### SABRINA SUMMERS ([id number]) [facility] ([facility]) [address] [place] [address] 02940 INR Coag (PPP) [Relative time] 1.1 Normal 0.9-1.1 [facility] Comment on above: Order Comment: The A PTT is no longer used for monitoring Unfractionated Heparin Therapy. For monitoring Heparin Therapy, use the Heparin Assay. Performed By: #### 3 4529-8 #### SABRINA SUMMERS ([id number]) [facility] ([facility]) [address] [place] [address] 60191 PT Coag (PPP) [Time] 11.9 s Normal 9.8-12.4 [facility] Comment on above: Order Comment: The A PTT is no longer used for monitoring Unfractionated Heparin Therapy. For monitoring Heparin Therapy, use the Heparin Assay. Performed By: #### 3 4529-8 #### SABRINA SUMMERS ([id number]) [facility] ([facility]) [address] [place] [address] Prepare RBC: 2 Unitson 08-03 Blood Expiration Date 08/08/2024 11:59:00 PM EDT [facility] Blood Expiration Date 08/11/2024 11:59:00 PM [facility] Unit Number [id number] [facility] Unit Number [id number] [facility] CBC AND DIFFERENTIALon Basophils/100 WBC (Bld) 1 % 0.0 - 2.0 % [facility] Eosinophils/100 WBC (Bld) 1.3 % 0.0 - 6.0 % [facility] Erythrocyte distribution width (RBC) [Ratio] 13.3 % 11.5 - 14.5 % [facility] Hematocrit (Bld) [Volume fraction] 46.7 % 41.0 - 52.0 % [facility] Hemoglobin (Bld) [Mass/Vol] 15.9 g/dL 13.5 - 17.5 g/dL [facility] Lymphocytes/100 WBC (Bld) 31.1 % 13.0 - 44.0 % [facility] MCH (RBC) [Entitic mass] 30.8 pg 26.0 - 34.0 pg [facility] MCHC (RBC) [Mass/Vol] 34 g/dL 32.0 - 36.0 g/dL [facility] MCV (RBC) [Entitic vol] 91 fL 80 - 100 fL [facility] Monocytes/100 WBC (Bld) 7.4 % 2.0 - 10.0 % [facility] Neutrophils/100 WBC (Bld) 59.1 % 40.0 - 80.0 % [facility] % AUTOMATED IMMATURE GRAN 0.1 % 0.0 - 0.9 % [facility] Comment on above: Immature Granulocyte Count (IG) includes promyelocytes, myelocytes and metamyelocytes but does not include bands. Percent differential counts (%) should be interpreted in the context of the absolute cell counts (cells/UL). AUTOMATED IMMATURE GRAN 0.01 [facility] BASOPHIL 0.07 [facility] EOSINOPHIL 0.09 [facility] LYMPHOCYTE 2.09 [facility] MONOCYTE 0.5 [facility] NEUTROPHIL 3.97 [facility] Comment on above: Percent differential counts (%) should be interpreted in the context of the absolute cell counts (cells/uL). [facility] NUCLEATED RBC 0 [facility] PLT 182 [facility] RBC 5.16 [facility] WBC 6.7 [facility] Original Ordering Provider: TERESA VALDES [facility] VERAB/VERIFY ABORHon 025 ABO group Nom (Bld) A Normal [facility] Comment on above: Order Comment: Thi s is for confirming/verifying history of ABORh on file for transfusion of blood products. If this is not for transfusion, please order an ABO/RH [[id number]]. If you have any questions or unsure what to order, please call the blood bank. Performed By: #### V ERAB #### MICHELLEIBALEJANDRA [facility] ([id number]) [facility]) [address] D Ag Ql (Bld) Positive Normal [facility] Comment on above: Order Comment: Thi s is for confirming/verifying history of ABORh on file for transfusion of blood products. If this is not for transfusion, please order an ABO/RH [[id number]]. If you have any questions or unsure what to order, please call the blood bank. Performed By: #### V ERAB #### ANAIBALEJANDRA [facility] ([id number]) [facility]) [address] [place] [address] VERIFY ABO/Rh Group Teston 0 08-03-2024 ABO group Nom (Bld) A [facility] D Ag Ql (Bld) Positive [facility] Cardiology Procedure Not Per formedon 06-13-2024 [facility] Work Phone: Cardiology Procedure Not Per formed - Echoon 06-13-2024 [facility] Work Phone: ECG 12-LEADon 06-13-2024 ECG 12-LEAD Ventricular Rate 77 Atrial Rate 77 P-R Interval 192 QRS Duration 160 Q-T Interval 410 QTC Calculation(Bazett) 463 R [employer] 54 T [employer] 7 QRS Count 13 Q Onset 219 T Offset 424 QTC Fredericia 445 Diagnosis Sinus rhythm with Premature supraventricular complexes Right bundle branch block Abnormal ECG When compared with ECG of 13-JUN-2024 10:57, (unconfirmed) Right bundle branch block has replaced Nonspecific intraventricular conduction delay Confirmed by Sunday Flannery ([id number]) on 06/15/2024 1:06:03 PM Normal [facility] ECG 12 lead (Clinic Performe d)on 06-07-2024 2 to 1 atrial flutte r versus atrial tachycardia, bifascicular block, heart rate 120 bpm [facility] Work Phone: ECG 12 Leadon 06-06-2024 Wide-complex tachyca rdia regular 125 bpm, most consistent with atrial flutter with variable AV conduction. QRS duration 172 ms QTc difficult to assess because of underlying rhythm EKG from 03/08/2024 showed normal sinus rhythm at 68 bpm with W[place] interval of 178 ms QRS duration of 172 ms and QTc of 469 ms. Right bundle branch block and left anterior fascicular block noted [facility] Work Phone: [facility] Work Phone: ALL BASIC METABOLIC PANELon 05-30-2024 Anion gap [Moles/Vol] 13.9 mmol/L [facility] Calcium [Mass/Vol] 9.1 mg/dL 8.5 - 10. 1 mg/dL [facility] Chloride [Moles/Vol] 105 mmol/L 98 - 10 7 mmol/L [facility] CO2 [Moles/Vol] 27.6 mmol/L 21.0 - 32.0 mmol/L [facility] Creatinine [Mass/Vol] 1.07 mg/dL 0.70 - 1.30 mg/dL [facility] GFR/1.73 sq M.predicted CKD-EPI (S/P/Bld) [Vol rate/Area] >60 >=60 mL/min/1.73 m 2 [facility] Glucose [Mass/Vol] 88 mg/dL 74 - 106 mg/dL [facility] Interpretation and review of laboratory results Abnormal [facility] Potassium [Moles/Vol] 4.5 mmol/L 3.5 - 5.1 mmol/L [facility] Sodium [Moles/Vol] 142 mmol/L 136 - 145 mmol/L [facility] TBH EGFR-NON AF LEBANESE >60 >=60 mL/min/1.73 m 2 [facility] Urea nitrogen [Mass/Vol] 19 mg/dL High 7.0 - 18.0 mg/dL [facility] Urea nitrogen/Creatinine [Mass ratio] 17.8 mg/mg [facility] Urology Office/Clinic Noteon 05-16-2024 Urology Office/Clinic Note Urology Office/Clinic Note Chief Complaint prostate cancer HPI Staff 73yr old male pt here for 1yr f/u with PSA. S/p Brachytherapy done 06/27/21. Previous Dx: prostate cancer, urge incontinence, BPH with urinary obstruction, family history of prostate cancer *tamsulosin 0.4mg qd (managed by PCP) PSA: 12/05/20 - 4.3 & 8.6% (prior to tx) 07/16/21 - 0.20 09/23/21 - <0.13 03/11/22 - <0.13 08/29/22 - <0.13 03/31/23 - <0.13 12/03/23 - 0.13 03/23/24 - <0.13 Dysuria: denies Incomplete bladder emptying: less than 1 in 5x Hematuria: denies Frequency: about half the time Urgency: about half the time Nocturia: 1x Stream: good steady Leaking: very little Post void dripping: yes Wearing pads/ Depends: denies Urge incontinence: pt states has happened in the past but e has been good for a while Stress incontinence: denies Incontinence without Sensory Awareness: denies Abdominal pain: denies Flank pain: denies History of Present Illness Tests reviewed: reviewed [...] See HPI. Physical Exam Vitals & Measurements T: 37 ???C(Temporal Artery) HR: 68(Peripheral) RR: 17 BP: 120/86 HT: 74 in HT: 187 cm WT: 146.7 kg WT: 323.418 lb BMI: 41.95 General Appearance: alert, no distress, well nourished, well developed male. Assessment/Plan 1. History of prostate cancer (Z85.46: Personal history of malignant neoplasm of prostate) PSA: 12/05/20 - 4.3 and 8.6% (prior to tx) 07/16/21 - 0.20 09/23/21 - <0.13 03/11/22 - <0.13 08/29/22 - <0.13 03/31/23 - <0.13 12/03/23 - 0.13 03/23/24 - <0.13 Fusion bx 03/14/21 - FELICIA x2, G7 (3+4) x10 with perineural invasion, and G6 (3+3) x4. CT 03/29/21 - no metastatic disease but bone scan shows nonspecific focus of mild increase uptake at the right 5th costochondral junction related to fracture or costochondritis. Brachytherapy 06/27/21. Last Lupron done 09/30/21. PSA remains undetectable. Will continue to monitor. Pt also still follows w Dr. Butler. -F/u in 1 yr w/ PSA 2. BPH with urinary obstruction (N40.1: Benign prostatic hyperplasia with lower urinary tract symptoms) IPSS 8. Taking Tamsulosin 0.4mg qd, managed by PCP. Feels stream is good during the day. Feels he empties. Only has leakage if he delays voiding. Admits he has increased urgency at times d/t taking a diuretic. -Cont Tamsulosin per PCP 3. ED (erectile dysfunction) (N52.9: Male erectile dysfunction, unspecified) Shares he has not been able to achieve an erection since tx for prostate ca. Discussed options for ED, including oral medications, erection pumps, MUSE intraurethral pellet, intracorporal injection therapy, and surgical options. Pt wishes try medication. Possible SEs discussed. -Start Sildenafil 100mg prn. Rx sent to [facility]. Pt aware nitro products are contraindicated. 4. Family history of prostate cancer (Z80.42: Family history of malignant neoplasm of prostate) Father and two brothers [1] Follow-up With When Contact Information CARINE DELGADO, Yin Patel, URL [facility] [address], [place] [address] [phone] Additional Instructions: 1 yr w/ PSA Patient Education Erectile Dysfunction I, Kimberly Nash, personally scribed for Dr. Hawk on 05/16/2024 11:27:20. . Documentation recorded by the scribe, Kimberly Nash, accurately reflects the services(s) I performed and decisions made by me. Authenticated by Dr. Hawk on 05/16/2024 11:29:47. Problem List/Past Medical History Ongoing Apnea, sleep Benign essential hypertension BPH with urinary obstruction Class 2 severe obesity due to excess calories with serious comorbidity and body mass index (BMI) of 35.0 to 35.9 in adult Dyslipidemia ED (erectile dysfunction) Elevated PSA Family history of prostate cancer GERD without esophagitis History of prostate cancer Prostate cancer SVT (supraventricular tachycardia) Urge incontinence Historical No qualifying data Procedure/Surgical History Brachytherapy (06/27/2021), Transrectal biopsy of prostate (03/14/2021), Colonoscopy, Repair of wrist. Medications atorvastatin 10 mg Tab, 10 mg= 1 tab(s), Oral, Daily BACLOFEN 10 MG TABLET, 0, Bedtime DilTIAZ (more content not included)... Normal [facility] Comment on above: Result Comment: Elec tronically Signed By: Yin HAWK MD\.br\Date and Time Signed: 05/16/24 11:29 EDT\.br\Electronically Co-Signed By: Kimberly Nash\.br\Date and Time Co-Signed: 05/16/24 11:27 EDT CNOVon 04-12-2024 CNOV Office Visit (RADTSA ) -- LUIS LUIS ([id number]) 1950 M Date Time Provider Department 04/12/24 [...] Take 0.4 mg by mouth once daily. acetaminophen/diphenhydram ine (TYLENOL PM EXTRA STRENGTH ORAL) Take by [...] none Unable to have erection Androgen deprivation: [id number] only, was discontinued PHYSICAL EXAM: BP 133/82 Pulse 70 Temp 36.1 ?C (97 ?F) Resp 18 Wt (!) 146.1 kg (322 lb 1.5 oz) SpO2 98% KPS: 100 General Appearance: Alert and oriented. No acute distress. Rectal exam is deferred. ASSESSMENT/PLAN: Prostate adenocarcinoma, initial PSA 4.3, biopsy Epworth score 3 + 4 = 7 (grade group 2), clinical stage T2a, N0, M0, stage IIB [T1-T2, N0, M0, PSA <20, GG 2] (AJCC 8th ed.), s/p TRUS Random and MRI fusion biopsy. Overall doing fairly well. PSA remains undetectable. Plan see patient back in one year for further postradiation follow-up. Signed by: Demond Butler MD cc: Kevin Brewer MD ([facility]) [address] [place] [address] Portions of the above note extracted and edited from previous visit as well as active information included in the EMR. Demetrius Guo RN 04/12/2024 2:11 PM Signed AUA= 11 Referring Provider: Demond BUTLER [[id number]] Allergies As of Date: 04/12/2024 (No Known Allergies) Date Reviewed: 04/12/2024 Reviewed by: Graves, Demetrius E, RN - Fully Assessed Reason for Visit: Prostate Cancer [590] Primary Visit Diagnosis:Malignant neoplasm of prostate (HCC) [C61] Order(s):PSA (OUTSIDE) [2223576] Order #: [id number] PROSTATE-SPECIFIC ANTIGEN DIAGNOSTIC [SQPSA] Order #: [id number] FUTURE Prescriptions as of 04/12/2024 - baclofen [...] 0.4 mg by mouth once daily. - acetaminophen/diphenhydram ine (TYLENOL PM EXTRA STRENGTH ORAL) Take by [...] Service: OFFICE/OUTPATIENT ESTABLISHED SF MDM 10 MIN [55473] (more content not included)... [facility], [facility] PROSTATE SPECIFIC ANTIGEN DX <0.13 NINF - 4.00 ng/mL [facility] No [facility], [facility] PROSTATE SPECIFIC ANTIGEN DX 0.13 ng/mL NINF - 4.00 ng/mL [facility] Ruddy 11-17-2023 L Specimen: [id number] Received: 11/18/23 Status: LEILANI Bello Num: [id number] Spec Type: Surgical Subm Dr: Franchesca Nj DO Tissues: A Colon Biopsy (SIGMOID POLYP) Procedures: HE/2, Gross/Micro L4 Age/ Patient Sex Location Account Attending Physician DamienneoLuis Kristan 73/M LABE[place] [id number] Franchesca Nj DO SPEC NUM: [id number] RECD: 11/18/23 STATUS: SOU REQ NUM: [id number] LULÚ: 11/17/23 [facility] DR: Franchesca Nj DO ENTERED: 11/18/[address] [facility] [address]: Solange [place] SPEC TYPE: Surgical DEPT: CECILIO RODRIGUEZ ENTERED BY: [id number] RECV BY: [id number] ORDERED: HE/2, Gross/Micro L4 ORDERED: HE/2, Gross/Micro [...] entirely submitted in cassette A1. CPT Codes 62629 Specimen: [id number] Received: 11/18/23 Status: SOUCj Req Num: [id number] Spec Type: Surgical Subm Dr: Franchesca Nj DO Tissues: A Colon Biopsy (SIGMOID POLYP) Procedures: HE/2, Gross/Micro L4 Patient: Luis Luis Kristan [id number] (Continued) Signed (signature on file) Brynn Watson MD 11/19/231926 Normal [facility] ECG 12 Leadon 02-10-2023 Normal sinus rhythm Right bundle branch block left anterior fascicular block Bifascicular block Cannot exclude age-indeterminate inferior infarct QTc 443 ms [facility] Work Phone: CBC AUTO DIFFon 07-02-2022 BASO # 0.1 103/ul Normal 0.0-0.1 [facility] Comment on above: Performed By: #### C BC #### [facility] [address] [place] [address] Dr. Shama Naylor Basophils/100 WBC (Bld) 0.8 % Normal 0.2-2.0 [facility] Comment on above: Performed By: #### C BC #### [facility] [address] [place] [address] Dr. Shama Naylor EO # 0.1 103/ul Normal 0.0-0.7 [facility] Comment on above: Performed By: #### C BC #### [facility] [address] [place] [address] Dr. Shama Naylor Eosinophils/100 WBC (Bld) 2.0 % Normal 0.9-7.0 [facility] Comment on above: Performed By: #### C BC #### [facility] [address] [place] [address] Dr. Shama Naylor Erythrocyte distribution width (RBC) [Ratio] 13.6 % Normal 11.0-15.0 [facility] Comment on above: Performed By: #### C BC #### [facility] [address] [place] [address] Dr. Shama Naylor Hematocrit (Bld) [Volume fraction] 40.0 % Critically low 42.0-54.0 [facility] Comment on above: Performed By: #### C BC #### [facility] [address] [place] [address] Dr. Shama Naylor Hemoglobin (Bld) [Mass/Vol] 13.6 g/dL Critically low 14.0-18.0 [facility] Comment on above: Performed By: #### C BC #### [facility] [address] [place] [address] Dr. Shama Naylor IG # 0.02 10e3/ul Normal 0.00-0.03 [facility] Comment on above: Performed By: #### C BC #### [facility] [address] [place] [address] Dr. Shama Naylor IG % 0.3 % Normal 0.0-0.5 [facility] Comment on above: Performed By: #### C BC #### [facility] [address] [place] [address] Dr. Shama Naylor LYMPH # 1.6 103/ul Normal 1.2-3.8 [facility] Comment on above: Performed By: #### C BC #### [facility] [address] [place] [address] Dr. Shama Naylor Lymphocytes/100 WBC (Bld) 26.0 % Normal 20.5-60.0 [facility] Comment on above: Performed By: #### C BC #### [facility] [address] [place] [address] Dr. Shama Naylor MANUAL DIFF REQ NO Normal [facility] Comment on above: Performed By: #### C BC #### [facility] [address] [place] [address] Dr. Shama Naylor MCH (RBC) [Entitic mass] 30.8 pg Normal 25.9-34.0 [facility] Comment on above: Performed By: #### C BC #### [facility] [address] [place] [address] Dr. Shama Naylor MCHC (RBC) [Mass/Vol] 34.0 g/dL Normal 29.9-35.2 [facility] Comment on above: Performed By: #### C BC #### [facility] [address] [place] [address] Dr. Shama Naylor MCV (RBC) [Entitic vol] 90.7 fL Normal 80.0-94.0 [facility] Comment on above: Performed By: #### C BC #### [facility] [address] [place] [address] Dr. Shama Naylor MONO # 0.4 103/ul Normal 0.3-0.8 [facility] Comment on above: Performed By: #### C BC #### [facility] [address] [place] [address] Dr. Shama Naylor Monocytes/100 WBC (Bld) 6.1 % Normal 1.7-12.0 [facility] Comment on above: Performed By: #### C BC #### [facility] [address] [place] [address] Dr. Shama Naylor NEUT # 3.9 103/ul Normal 1.4-6.5 [facility] Comment on above: Performed By: #### C BC #### [facility] [address] [place] [address] Dr. Shama Naylor Neutrophils/100 WBC (Bld) 64.8 % Normal 43.0-75.0 [facility] Comment on above: Performed By: #### C BC #### [facility] [address] [place] [address] Dr. Shama Naylor Platelet mean volume (Bld) [Entitic vol] 10.3 fL Normal 9.5-13.5 [facility] Comment on above: Performed By: #### C BC #### [facility] [address] [address] [address] Shama Naylor PLT 165 103/ul Normal 150-450 [facility] Comment on above: Performed By: #### C BC #### [facility] [address] [address] [address] Shama Naylor RBC 4.41 106/ul Critically low 4.70-6.10 [facility] Comment on above: Performed By: #### C BC #### [facility] [address] [address] [address] Shama Naylor WBC 6.0 103/ul Normal 4.0-11.0 [facility] Comment on above: Performed By: #### C BC #### [facility] [address] [place] [address] Dr. Shama Naylor LIPID PROFILEon 07-02-2022 CHOL-HDL RATIO NORM SEE BELOW Normal [facility] Comment on above: Result Comment: 3.3 - 4.4 LOW RISK 4.4 - 7.1 AVERAGE RISK 7.1 - 11.0 MODERATE RISK >11.0 HIGH RISK Performed By: #### L IPID, BMP, LIVER #### [facility] [address] [place] [address] Dr. Shama Naylor Cholesterol [Mass/Vol] 157 mg/dL Normal <=200 [facility] Comment on above: Performed By: #### L IPID, BMP, LIVER #### [facility] [address] [place] [address] Dr. Shama Naylor Cholesterol in HDL [Mass/Vol] 58 mg/dL Normal 40-60 [facility] Comment on above: Performed By: #### L IPID, BMP, LIVER #### [facility] [address] [place] [address] Dr. Shama Naylor Cholesterol in LDL [Mass/Vol] 81.8 mg/dL Normal [facility] Comment on above: Performed By: #### L IPID, BMP, LIVER #### [facility] [address] [address] [address] Shama Naylor Cholesterol.total/Chol esterol in HDL [Mass ratio] 2.7 {ratio} Normal [facility] Comment on above: Performed By: #### L IPID, BMP, LIVER #### [facility] [address] [address] [address] Shama Naylor HDL NORMAL > or = 60 mg/dl - LO W CARDIOVASCULAR RISK <40 mg/dl - HIGH CARDIOVASCULAR RISK Normal [facility] Comment on above: Performed By: #### L IPID, BMP, LIVER #### [facility] [address] [place] [address] Dr. Shama Naylor LDL CALC NORMAL SEE BELOW Normal [facility] Comment on above: Result Comment: <100 mg/dl OPTIMAL 100 - 129 mg/dl NEAR OR ABOVE OPTIMAL 130 - 159 mg/dl BORDERLINE HIGH 160 - 189 mg/dl HIGH >190 mg/dl VERY HIGH Performed By: #### L IPID, BMP, LIVER #### [facility] [address] [address] [address] Shama Naylor Triglyceride [Mass/Vol] 86 mg/dL Normal <=150 [facility] Comment on above: Performed By: #### L IPID, BMP, LIVER #### [facility] [address] [place] [address] Dr. Shama Naylor VLDL CALC 17.2 mg/dL Normal [facility] Comment on above: Performed By: #### L IPID, BMP, LIVER #### [facility] [address] [place] [address] Dr. Shama Naylor LIVER PROFILEon 07-02-2022 Albumin [Mass/Vol] 3.3 g/dL Critically low 3.4-5.0 [facility] Comment on above: Performed By: #### L IPID, BMP, LIVER #### [facility] [address] [place] [address] Dr. Shama Naylor Albumin/Globulin [Mass ratio] 1.0 {ratio} Normal [facility] Comment on above: Performed By: #### L IPID, BMP, LIVER #### [facility] [address] [place] [address] Dr. Shama Naylor ALP [Catalytic activity/Vol] 61 U/L Normal 46-116 [facility] Comment on above: Performed By: #### L IPID, BMP, LIVER #### [facility] [address] [place] [address] Dr. Shama Naylor ALT [Catalytic activity/Vol] 38 U/L Normal 16-63 [facility] Comment on above: Performed By: #### L IPID, BMP, LIVER #### [facility] [address] [place] [address] Dr. Shama Naylor AST [Catalytic activity/Vol] 14 U/L Critically low 15-37 [facility] Comment on above: Performed By: #### L IPID, BMP, LIVER #### [facility] [address] [place] [address] Dr. Shama Naylor BILI, CONJUGATED 0.1 mg/dL Normal 0.0-0.2 [facility] Comment on above: Performed By: #### L IPID, BMP, LIVER #### [facility] [address] [place] [address] Dr. Shama Naylor Bilirubin [Mass/Vol] 0.4 mg/dL Normal 0.2-1.0 [facility] Comment on above: Performed By: #### L IPID, BMP, LIVER #### [facility] [address] [place] [address] Dr. Shama Naylor Globulin (S) [Mass/Vol] 3.3 g/dL Normal [facility] Comment on above: Performed By: #### L IPID, BMP, LIVER #### [facility] [address] [place] [address] Dr. Shama Naylor Protein [Mass/Vol] 6.6 g/dL Normal 6.4-8.2 [facility] Comment on above: Performed By: #### L IPID, BMP, LIVER #### [facility] [address] [place] [address] Dr. Shama Naylor PROF CHEM 8 (BAS METB)on Anion gap [Moles/Vol] 9.6 mmol/L Normal [facility] Comment on above: Performed By: #### L IPID, BMP, LIVER #### [facility] [address] [address] [address] Shama Naylor Calcium [Mass/Vol] 8.8 mg/dL Normal 8.5-10.1 [facility] Comment on above: Performed By: #### L IPID, BMP, LIVER #### [facility] [address] [place] [address] Dr. Shama Naylor Chloride [Moles/Vol] 107 mmol/L Normal 98-107 [facility] Comment on above: Performed By: #### L IPID, BMP, LIVER #### [facility] [address] [place] [address] Dr. Shama Naylor CO2 [Moles/Vol] 28.3 mmol/L Normal 21.0-32.0 [facility] Comment on above: Performed By: #### L IPID, BMP, LIVER #### [facility] [address] [place] [address] Dr. Shama Naylor Creatinine [Mass/Vol] 1.03 mg/dL Normal 0.70-1.30 [facility] Comment on above: Performed By: #### L IPID, BMP, LIVER #### [facility] [address] [place] [address] Dr. Shama Naylor EGFR-AF LEBANESE >60 Normal >=60 [facility] Comment on above: Performed By: #### L IPID, BMP, LIVER #### [facility] [address] [place] [address] Dr. Shama Naylor EGFR-NON AF LEBANESE >60 Normal >=60 [facility] Comment on above: Performed By: #### L IPID, BMP, LIVER #### [facility] [address] [place] [address] Dr. Shama Naylor Glucose [Mass/Vol] 103 mg/dL Normal 74-106 [facility] Comment on above: Performed By: #### L IPID, BMP, LIVER #### [facility] [address] [place] [address] Dr. Shama Naylor Potassium [Moles/Vol] 3.9 mmol/L Normal 3.5-5.1 [facility] Comment on above: Performed By: #### L IPID, BMP, LIVER #### [facility] [address] [address] [address] Shama Naylor Sodium [Moles/Vol] 141 mmol/L Normal 136-145 [facility] Comment on above: Performed By: #### L IPID, BMP, LIVER #### [facility] [address] [address] [address] Shama Naylor Urea nitrogen [Mass/Vol] 14.0 mg/dL Normal 7.0-18.0 [facility] Comment on above: Performed By: #### L IPID, BMP, LIVER #### [facility] [address] [address] [address] Shama Naylor Urea nitrogen/Creatinine [Mass ratio] 13.6 mg/mg Normal [facility] Comment on above: Performed By: #### L IPID, BMP, LIVER #### [facility] [address] [address] [address] Shama Naylor Office Visit (Cardiology)on 02-11-2022 Follow-up visit Diagnoses/Problems Assessed Paroxysmal SVT (supraventricular tachycardia) (427.0) (I47.1) Hypertension (401.9) (I10) HLD (hyperlipidemia) (272.4) (E78.5) Morbid obesity with BMI of 40.0-44.9, adult (278.01,V85.41) (E66.01,Z68.41) Former smoker (V15.82) (Z87.891) Quit in 1970s Orders Morbid obesity with BMI of 40.0-44.9, adult Healthy Weight Tips; Status:Complete; Done: [id number] Some eating tips that can help you lose weight.; Status:Complete; Done: 72Piq3404 Paroxysmal SVT (supraventricular tachycardia) IO EKG Electrocardiogram- 12 Lead; Status:Complete; Done: 72Pek1188 SocHx: Former smoker Tobacco Use Screening; Status:Complete; Done: [id number] Patient Instructions Please bring all medicines, vitamins, [...] negative for complaint. Vitals Vital Signs Recorded: [id number] 11:05AM Heart Rate73, Apical Usncaanw723, LUE, Sitting Scrgxsppt76, LUE, Sitting Height6 ft 2 in Atblcv036 lb BMI Wwywownukl90.57 kg/m2 BSA Calculated2.64 Tobacco Useb) No PHQ-2 [...] Feb 11 2022 5:56PM EST (Author) Normal [place] Tobacco Screening.on Adult depression screening assessment [facility] [employer] 250 DO Work Phone: Fall risk assessment a) No falls within the last year [facility] [employer] 250 DO Work Phone: Tobacco use status [facility] b) No [facility] [employer] 250 DO Work Phone: Falls Risk Screeningon 08-12 Fall risk assessment a) No falls within the last year [facility] [employer] 250 DO Work Phone: Office Visit (Cardiology)on [...] Weight Tips; Status:Complete - Retrospective Authorization; Done: [id number] SocHx: Former smoker Tobacco Use Screening; Status:Complete; Done: 08Wxg3786 Unlinked Stop: Aspirin 81 MG Oral Tablet [...] negative for complaint. Vitals Vital Signs Recorded: 57Vau0905 01:46PM Heart Rate72, R Radial Mxsmlbxb338, RUE, Sitting Miagfxwqn26, RUE, Sitting Height6 ft 2 in Jpemmx478 lb BMI Wcspgnunle06.67 kg/m2 BSA Calculated2.61 Tobacco Useb) No Fall [...] Feb 15 2021 5:53PM EST (Author) Normal [place] Tobacco Screening.on 021 Fall risk assessment a) No falls within the last year [facility] [employer] 250 DO Work Phone: Tobacco use status [facility] b) No [facility] [employer] aj 250 DO Work Phone: [facility] CARDIAC STRESS/REST INJE CTIONon 11-29-2019 [facility] CARDIAC STRESS/REST INJECTION Patient Name: LUIS LUIS STUDY: MYOCARDIAL PERFUSION STRESS TEST WITH LEXISCAN Performing facility: [facility], [address], [address], [place] [address] [facility] [facility] Provider: Mary Tam RN, TRANSCRIPTION PCP: Dr. Julianna Brewer Supervising provider: Sunday Rai DO, [facility] INDICATION: Chest Pain; HISTORY: Gender: M; Age: 69 y/o ; Height: 187.96 cm; Weight: [phone] kg. High Cholesterol; HTN; Palpitations; Chest Pain; SOB; Quit smoking 40 years ago. COMPARISON: No comparison. ACCESSION NUMBER(S): [id number]; [id number]; [id number] ORDERING CLINICIAN: MARY TAM TECHNIQUE: TWO DAY [...] Electronically signed by: JAMIL JARRELL MD Normal [facility] Vital Signs Date Time Vital Sign Value Performing Clinician Facility 09-22-2024 14:25-0400 Body height 188 cm [facility] 09-22-2024 14:25-0400 Body mass index (BMI) [Ratio] 39.93 kg/m2 [facility] 09-22-2024 14:25-0400 Body weight 141.07 kg [facility] 09-22-2024 14:25-0400 Diastolic blood pressure 70 mm[Hg] [facility] 09-22-2024 14:25-0400 Heart rate 69 /min [facility] 09-22-2024 14:25-0400 Systolic blood pressure 130 mm[Hg] [facility] 09-20-2024 09:11-0400 Body height 188 cm Kevin Brewer MD Work Phone: [facility] 09-20-2024 09:11-0400 Body mass index (BMI) [Ratio] 40.83 kg/m2 Kevin Brewer MD Work Phone: [facility] 09-20-2024 09:11-0400 Body temperature 97.3 [degF] Kevin Brewer MD Work Phone: [facility] 09-20-2024 09:11-0400 Body weight 144.24 kg Kevin Brewer MD Work Phone: [facility] 09-20-2024 09:11-0400 Diastolic blood pressure 72 mm[Hg] Kevin Brewer MD Work Phone: [facility] 09-20-2024 09:11-0400 Heart rate 69 /min Kevin Brewer MD Work Phone: [facility] 09-20-2024 09:11-0400 Respiratory rate 18 /min Kevin Brewer MD Work Phone: [facility] 09-20-2024 09:11-0400 SaO2% (BldA) [Mass fraction] 97 % Kevin Breewr MD Work Phone: [facility] 09-20-2024 09:11-0400 Systolic blood pressure 140 mm[Hg] Kevin Brewer MD Work Phone: [facility] 09-16-2024 10:53-0400 Body height 188 cm Esther Mejía MD Work Phone: [facility] 09-16-2024 10:53-0400 Body mass index (BMI) [Ratio] 40.7 kg/m2 Esther Mejía MD Work Phone: [facility] 09-16-2024 10:53-0400 Body weight 143.79 kg Esther Mejía MD Work Phone: [facility] 09-16-2024 10:53-0400 Diastolic blood pressure 80 mm[Hg] Esther Mejía MD Work Phone: [facility] 09-16-2024 10:53-0400 Heart rate 60 /min Esther Mejía MD Work Phone: [facility] 09-16-2024 10:53-0400 Systolic blood pressure 108 mm[Hg] Esther Mejía MD Work Phone: [facility] 09-12-2024 01:38-0400 Diastolic blood pressure 72 mm[Hg] Kevin Brewer MD Work Phone: [facility] 09-12-2024 01:38-0400 Heart rate 60 /min Kevin Brewer MD Work Phone: [facility] 09-12-2024 01:38-0400 Respiratory rate 16 /min Kevin Brewer MD Work Phone: [facility] 09-12-2024 01:38-0400 SaO2% (BldA) [Mass fraction] 94 % Kevin Brewer MD Work Phone: [facility] 09-12-2024 01:38-0400 Systolic blood pressure 127 mm[Hg] Kevin Brewer MD Work Phone: [facility] 09-11-2024 22:22-0400 Body height 187.96 cm Kevin Brewer MD Work Phone: [facility] 09-11-2024 22:22-0400 Body temperature 98.5 [degF] Kevin Brewer MD Work Phone: [facility] 09-11-2024 22:22-0400 Body weight 145.25 kg Kevin Brewer MD Work Phone: [facility] 09-06-2024 09:57-0400 Body height 188 cm Cheryl Michele PA-C Work Phone: [facility] 09-06-2024 09:57-0400 Body mass index (BMI) [Ratio] 41.21 kg/m2 Cheryl Michele PA-C Work Phone: [facility] 09-06-2024 09:57-0400 Body weight 145.6 kg Cheryl Michele PA-C Work Phone: [facility] 09-06-2024 09:57-0400 Diastolic blood pressure 74 mm[Hg] Cheryl Michele PA-C Work Phone: [facility] 09-06-2024 09:57-0400 Heart rate 139 /min Cheryl Michele PA-C Work Phone: [facility] 09-06-2024 09:57-0400 Systolic blood pressure 122 mm[Hg] Cheryl Michele PA-C Work Phone: [facility] 08-03-2024 16:30-0400 SaO2% (BldA) [Mass fraction] 96 % Mikaela Temple MD Work Phone: [facility] 08-03-2024 16:20-0400 Diastolic blood pressure 76 mm[Hg] Mikaela Temple MD Work Phone: [facility] 08-03-2024 16:20-0400 Heart rate 96 /min Mikaela Temple MD Work Phone: [facility] 08-03-2024 16:20-0400 Respiratory rate 18 /min Mikaela Temple MD Work Phone: [facility] 08-03-2024 16:20-0400 Systolic blood pressure 151 mm[Hg] Mikaela Temple MD Work Phone: [facility] 08-03-2024 16:10-0400 Body temperature 98.2 [degF] Mikaela Temple MD Work Phone: [facility] 08-03-2024 [id number] Body height 188 cm Mikaela Temple MD Work Phone: [facility] 08-03-2024 12:02-0400 Body mass index (BMI) [Ratio] 40.48 kg/m2 Mikaela Temple MD Work Phone: [facility] 08-03-2024 12:02-0400 Body weight 143 kg Mikaela Temple MD Work Phone: [facility] 06-07-2024 10:140400 Body height 188 cm Mikaela Temple MD Work Phone: [facility] 06-07-2024 10:14-0400 Body mass index (BMI) [Ratio] 41.19 kg/m2 Mikaela Temple MD Work Phone: [facility] 06-07-2024 10:14-0400 Body weight 145.51 kg Mikaela Temple MD Work Phone: [facility] 06-07-2024 10:14-0400 Diastolic blood pressure 70 mm[Hg] Mikaela Temple MD Work Phone: [facility] 06-07-2024 10:14-0400 Heart rate 120 /min Mikaela Temple MD Work Phone: [facility] 06-07-2024 10:14-0400 Systolic blood pressure 118 mm[Hg] Mikaela Temple MD Work Phone: [facility] 06-06-2024 13:29-0400 Body height 188 cm Esther Mejía MD Work Phone: [facility] 06-06-2024 13:29-0400 Body mass index (BMI) [Ratio] 41.96 kg/m2 Esther Mejía MD Work Phone: [facility] 06-06-2024 13:29-0400 Body weight 148.24 kg Esther Mejía MD Work Phone: [facility] 06-06-2024 13:29-0400 Diastolic blood pressure 82 mm[Hg] Esther Mejía MD Work Phone: [facility] 06-06-2024 13:29-0400 Heart rate 125 /min Esther Mejía MD Work Phone: [facility] 06-06-2024 13:29-0400 Systolic blood pressure 118 mm[Hg] Esther Mejía MD Work Phone: [facility] 04-12-2024 13:54-0500 Body temperature 97 [degF] SARAVANAN Butler MD Work Phone: [facility] 04-12-2024 13:54-0500 Body weight 146.1 kg SARAVANAN Butler MD Work Phone: [facility] 04-12-2024 13:54-0500 Diastolic blood pressure 82 mm[Hg] SARAVANAN Butler MD Work Phone: [facility] 04-12-2024 13:54-0500 Heart rate 70 /min SARAVANAN Butler MD Work Phone: [facility] 04-12-2024 13:54-0500 Respiratory rate 18 /min SARAVANAN Butler MD Work Phone: [facility] 04-12-2024 13:54-0500 SaO2% (BldA) [Mass fraction] 98 % SARAVANAN Butler MD Work Phone: [facility] 04-12-2024 13:54-0500 Systolic blood pressure 133 mm[Hg] SARAVANAN Butler MD Work Phone: [facility] 03-23-2024 09:08-0500 Body height 188 cm Kevin Brewer MD Work Phone: [facility] 03-23-2024 09:08-0500 Body mass index (BMI) [Ratio] 41.6 kg/m2 Kevin Brewer MD Work Phone: [facility] 03-23-2024 09:08-0500 Body temperature 97.3 [degF] Kevin Brewer MD Work Phone: [facility] 03-23-2024 09:08-0500 Body weight 146.97 kg Kevin Brewer MD Work Phone: [facility] 03-23-2024 09:08-0500 Diastolic blood pressure 68 mm[Hg] Kevin Brewer MD Work Phone: [facility] 03-23-2024 09:08-0500 Heart rate 90 /min Kevin Brewer MD Work Phone: [facility] 03-23-2024 09:08-0500 Respiratory rate 18 /min Kevin Brewer MD Work Phone: [facility] 03-23-2024 09:08-0500 SaO2% (BldA) [Mass fraction] 95 % Kevin Brewer MD Work Phone: [facility] 03-23-2024 09:08-0500 Systolic blood pressure 136 mm[Hg] Kevin Brewer MD Work Phone: [facility] 03-08-2024 08:56-0500 Body height 188 cm Mary AVERY Work Phone: [facility] 03-08-2024 08:56-0500 Body mass index (BMI) [Ratio] 41.09 kg/m2 Mary AVERY Work Phone: [facility] 03-08-2024 08:56-0500 Body weight 145.15 kg Mary Tam TRANSPORT AIDE-TRANSCRIPTION Work Phone: [facility] 03-08-2024 08:56-0500 Diastolic blood pressure 80 mm[Hg] Mary Tam TRANSPORT AIDE-TRANSCRIPTION Work Phone: [facility] 03-08-2024 08:56-0500 Heart rate 68 /min Mary Tam TRANSPORT AIDE-TRANSCRIPTION Work Phone: [facility] 03-08-2024 08:56-0500 Systolic blood pressure 136 mm[Hg] Mary Tam TRANSPORT AIDE-TRANSCRIPTION Work Phone: [facility] 02-17-2024 13:36-0500 Body height 188 cm Kevin Brewer MD Work Phone: [facility] 02-17-2024 13:36-0500 Body mass index (BMI) [Ratio] 40.83 kg/m2 Kevin Brewer MD Work Phone: [facility] 02-17-2024 13:36-0500 Body temperature 97.11 [degF] Kevin Brewer MD Work Phone: [facility] 02-17-2024 13:36-0500 Body weight 144.24 kg Kevin Brewer MD Work Phone: [facility] 02-17-2024 13:36-0500 Diastolic blood pressure 72 mm[Hg] Kevin Brewer MD Work Phone: [facility] 02-17-2024 13:36-0500 Heart rate 72 /min Kevin Brewer MD Work Phone: [facility] 02-17-2024 13:36-0500 Respiratory rate 18 /min Kevin Brewer MD Work Phone: [facility] 02-17-2024 13:36-0500 SaO2% (BldA) [Mass fraction] 95 % Kevin Brewer MD Work Phone: [facility] 02-17-2024 13:36-0500 Systolic blood pressure 144 mm[Hg] Kevin Brewer MD Work Phone: [facility] 12-21-2023 08:54-0400 Body height 188 cm Kevin Brewer MD Work Phone: [facility] 12-21-2023 08:54-0400 Body mass index (BMI) [Ratio] 40.19 kg/m2 Kevin Brewer MD Work Phone: [facility] 12-21-2023 08:54-0400 Body temperature 96.6 [degF] Kevin Brewer MD Work Phone: [facility] 12-21-2023 08:54-0400 Body weight 141.98 kg Kevin Brewer MD Work Phone: [facility] 12-21-2023 08:54-0400 Diastolic blood pressure 84 mm[Hg] Kevin Brewer MD Work Phone: [facility] 12-21-2023 08:54-0400 Heart rate 87 /min Kevin Brewer MD Work Phone: [facility] 12-21-2023 08:54-0400 Respiratory rate 20 /min Kevin Brewer MD Work Phone: [facility] 12-21-2023 08:54-0400 SaO2% (BldA) [Mass fraction] 94 % Kevin Brewer MD Work Phone: [facility] 12-21-2023 08:54-0400 Systolic blood pressure 150 mm[Hg] Kevin Brewer MD Work Phone: [facility] 12-02-2023 13:42-0400 Body height 188 cm Naida Hobson SHALE PLANER OPERATOR Work Phone: [facility] 12-02-2023 13:42-0400 Body mass index (BMI) [Ratio] 40.06 kg/m2 Naida Hobson SHALE PLANER OPERATOR Work Phone: [facility] 12-02-2023 13:42-0400 Body weight 141.52 kg Naida Hobson SHALE PLANER OPERATOR Work Phone: [facility] 12-02-2023 13:42-0400 Diastolic blood pressure 92 mm[Hg] Naida Padillamor SHALE PLANER OPERATOR Work Phone: [facility] 12-02-2023 13:42-0400 Heart rate 75 /min Naida Padillamor SHALE PLANER OPERATOR Work Phone: [facility] 12-02-2023 13:42-0400 Systolic blood pressure 148 mm[Hg] Naida Batistar SHALE PLANER OPERATOR Work Phone: [facility] 10-28-2023 10:12-0400 Body height 188 cm Franchesca Nj DO Work Phone: [facility] 10-28-2023 10:12-0400 Body mass index (BMI) [Ratio] 41.6 kg/m2 Franchesca Nj DO Work Phone: [facility] 10-28-2023 10:12-0400 Body weight 146.97 kg Franchesca Nj DO Work Phone: [facility] 10-28-2023 10:12-0400 Diastolic blood pressure 80 mm[Hg] Franchesca Ondina DO Work Phone: [facility] 10-28-2023 10:12-0400 Heart rate 76 /min Franchesca Ondina DO Work Phone: [facility] 10-28-2023 10:12-0400 Respiratory rate 20 /min Franchesca Ondina DO Work Phone: [facility] 10-28-2023 10:12-0400 SaO2% (BldA) [Mass fraction] 94 % Franchesca Ondina DO Work Phone: [facility] 10-28-2023 10:12-0400 Systolic blood pressure 142 mm[Hg] Franchesca Ondina DO Work Phone: [facility] 04-07-2023 13:06-0500 Body temperature 97.9 [degF] SARAVANAN Butler MD Work Phone: [facility] 04-07-2023 13:06-0500 Body weight 149.2 kg SARAVANAN Butler MD Work Phone: [facility] 04-07-2023 13:06-0500 Diastolic blood pressure 83 mm[Hg] SARAVANAN Butler MD Work Phone: [facility] 04-07-2023 13:06-0500 Heart rate 80 /min SARAVANAN Butler MD Work Phone: [facility] 04-07-2023 13:06-0500 Respiratory rate 16 /min SARAVANAN Butler MD Work Phone: [facility] 04-07-2023 13:06-0500 SaO2% (BldA) [Mass fraction] 96 % SARAVANAN Butler MD Work Phone: [facility] 04-07-2023 13:06-0500 Systolic blood pressure 139 mm[Hg] SARAVANAN Butler MD Work Phone: [facility] 02-10-2023 11:10-0500 Body height 188 cm Parveen Santo MD Work Phone: [facility] 02-10-2023 11:10-0500 Body mass index (BMI) [Ratio] 41.6 kg/m2 Parveen Santo MD Work Phone: [facility] 02-10-2023 11:10-0500 Body weight 146.97 kg Parveen Santo MD Work Phone: [facility] 02-10-2023 11:10-0500 Diastolic blood pressure 84 mm[Hg] Parveen Santo MD Work Phone: [facility] 02-10-2023 11:10-0500 Heart rate 67 /min Parveen Santo MD Work Phone: [facility] 02-10-2023 11:10-0500 Systolic blood pressure 132 mm[Hg] Pavreen Santo MD Work Phone: [facility] 09-30-2022 13:55-0400 Body temperature 96.69 [degF] SARAVANAN Butler MD Work Phone: [facility] 09-30-2022 13:55-0400 Body weight 144.97 kg SARAVANAN Butler MD Work Phone: [facility] 09-30-2022 13:55-0400 Diastolic blood pressure 85 mm[Hg] SARAVANAN Butler MD Work Phone: [facility] 09-30-2022 13:55-0400 Heart rate 92 /min SARAVANAN Butler MD Work Phone: [facility] 09-30-2022 13:55-0400 Respiratory rate 18 /min SARAVANAN Butler MD Work Phone: [facility] 09-30-2022 13:55-0400 SaO2% (BldA) [Mass fraction] 94 % SARAVANAN Butler MD Work Phone: [facility] 09-30-2022 13:55-0400 Systolic blood pressure 143 mm[Hg] SARAVANAN Butler MD Work Phone: [facility] 09-08-2022 10:50-0400 Blood Pressure Location Yin HAWK [facility] 09-08-2022 10:50-0400 Diastolic blood pressure 73 mm[Hg] Yin HAWK [facility] 09-08-2022 10:50-0400 Heart rate 72 /min Yin HAWK [facility] 09-08-2022 10:50-0400 Respiratory rate 16 /min Yin HAWK [facility] 09-08-2022 10:50-0400 Systolic blood pressure 132 mm[Hg] Yin HAWK [facility] 04-01-2022 14:41-0500 Body temperature 97.2 [degF] SARAVANAN Butler MD Work Phone: [facility] 04-01-2022 14:41-0500 Body weight 142.79 kg NA Lennox DELGADO Work Phone: [facility] 04-01-2022 14:41-0500 Diastolic blood pressure 90 mm[Hg] SARAVANAN Butler MD Work Phone: [facility] 04-01-2022 14:41-0500 Heart rate 82 /min SARAVANAN Butler MD Work Phone: [facility] 04-01-2022 14:41-0500 Respiratory rate 18 /min SARAVANAN Butler MD Work Phone: [facility] 04-01-2022 14:41-0500 SaO2% (BldA) [Mass fraction] 98 % SARAVANAN Butler MD Work Phone: [facility] 04-01-2022 14:41-0500 Systolic blood pressure 159 mm[Hg] SARAVANAN Butler MD Work Phone: [facility] 03-21-2022 11:25-0500 Blood Pressure Location Yin HAWK [facility] 03-21-2022 11:25-0500 Diastolic blood pressure 80 mm[Hg] Yin HAWK [facility] 03-21-2022 11:25-0500 Heart rate 76 /min Yin HAWK [facility] 03-21-2022 11:25-0500 Respiratory rate 16 /min Yin HAWK [facility] 03-21-2022 11:25-0500 Systolic blood pressure 138 mm[Hg] Yin HAWK [facility] 02-11-2022 11:05-0500 Body height 187.96 cm Kevin Brewer Work Phone: [facility] DO Work Phone: 02-11-2022 11:05-0500 Body mass index (BMI) [Ratio] 40.57 kg/m2 Kevin Scott Naderer Work Phone: [facility] DO Work Phone: 02-11-2022 11:05-0500 Body surface area Derived from formula 2.64 m2 Kevin Lovelaceerer Work Phone: [facility] DO Work Phone: 02-11-2022 11:05-0500 Body weight 143.34 kg Kevin Scott Naderer Work Phone: [facility] DO Work Phone: 02-11-2022 11:05-0500 Diastolic blood pressure 78 mm[Hg] Kevin Scott Albaniaerer Work Phone: [facility] DO Work Phone: 02-11-2022 11:05-0500 Heart rate 73 /min Kevin Scott Albaniaerer Work Phone: [facility] DO Work Phone: 02-11-2022 11:05-0500 Systolic blood pressure 132 mm[Hg] Kevin Scott Albaniaerer Work Phone: [facility] DO Work Phone: 09-30-2021 10:54-0400 Blood Pressure Location Yin HAWK [facility] 09-30-2021 10:54-0400 Diastolic blood pressure 84 mm[Hg] Yin HAWK [facility] 09-30-2021 10:54-0400 Heart rate 75 /min Yin HAWK [facility] 09-30-2021 10:54-0400 Respiratory rate 16 /min Yin HAWK [facility] 09-30-2021 10:54-0400 Systolic blood pressure 136 mm[Hg] Yin HAWK [facility] 08-14-2021 09:47-0400 Body temperature 96.69 [degF] SARAVANAN Butler MD Work Phone: [facility] 08-14-2021 09:47-0400 Body weight 141.98 kg SARAVANAN Butler MD Work Phone: [facility] 08-14-2021 09:47-0400 Diastolic blood pressure 82 mm[Hg] SARAVANAN Butler MD Work Phone: [facility] 08-14-2021 09:47-0400 Heart rate 82 /min SARAVANAN Butler MD Work Phone: [facility] 08-14-2021 09:47-0400 Respiratory rate 20 /min SARAVANAN Butler MD Work Phone: [facility] 08-14-2021 09:47-0400 SaO2% (BldA) [Mass fraction] 94 % SARAVANAN Butler MD Work Phone: [facility] 08-14-2021 09:47-0400 Systolic blood pressure 131 mm[Hg] SARAVANAN Butler MD Work Phone: [facility] 08-12-2021 10:15-0400 Body height 187.96 cm Kevin Brewer Work Phone: [facility] DO Work Phone: 08-12-2021 10:15-0400 Body mass index (BMI) [Ratio] 39.93 kg/m2 Kevin Scott Naderer Work Phone: [facility] DO Work Phone: 08-12-2021 10:15-0400 Body surface area Derived from formula 2.62 m2 Kevin Scott Naderer Work Phone: [facility] DO Work Phone: 08-12-2021 10:15-0400 Body weight 141.07 kg Kevin Scott Naderer Work Phone: [facility] DO Work Phone: 08-12-2021 10:15-0400 Diastolic blood pressure 80 mm[Hg] Kevin Scott Naderer Work Phone: [facility] DO Work Phone: 08-12-2021 10:15-0400 Heart rate 69 /min Kevin Scott Naderer Work Phone: [facility] DO Work Phone: 08-12-2021 10:15-0400 Systolic blood pressure 130 mm[Hg] Kevin Scott Naderer Work Phone: [facility] DO Work Phone: 08-09-2021 09:42-0400 Blood Pressure Location Yin HAWK [facility] 08-09-2021 09:42-0400 Diastolic blood pressure 80 mm[Hg] Yin HAWK [facility] 08-09-2021 09:42-0400 Heart rate 75 /min Yin HAWK [facility] 08-09-2021 09:42-0400 Respiratory rate 16 /min Yin HAWK [facility] 08-09-2021 09:42-0400 Systolic blood pressure 134 mm[Hg] [facility] HAWK [facility] 02-15-2021 13:46-0500 Body height 187.96 cm Kevin Sonia Naderer Work Phone: [facility] DO Work Phone: 02-15-2021 13:46-0500 Body mass index (BMI) [Ratio] 39.67 kg/m2 Kevin Scott Naderer Work Phone: [facility] DO Work Phone: 02-15-2021 13:46-0500 Body surface area Derived from formula 2.61 m2 Kevin Sonia Naderer Work Phone: [facility] DO Work Phone: 02-15-2021 13:46-0500 Body weight 140.16 kg Kevin Scott Naderer Work Phone: [facility] DO Work Phone: 02-15-2021 13:46-0500 Diastolic blood pressure 80 mm[Hg] Kevin Scott Naderer Work Phone: [facility] DO Work Phone: 02-15-2021 13:46-0500 Heart rate 72 /min Kevin Scott Naderer Work Phone: [facility] DO Work Phone: 02-15-2021 13:46-0500 Systolic blood pressure 118 mm[Hg] Kevin Brewer Work Phone: [facility] DO Work Phone: Encounters Encounter Date Encounter Type Care Provider Facility Start: 05-15-2025 ambulatory Yin Patel CARINE Cain ty:UCHE Soria Start: 11-03-2024 End: 11-03-2024 ambulatory TERESA Guerrero [facility] Ambulatory Start: 09-22-2024 End: 09-22-2024 Professional / ancillary services management Marisol Bravo LPN [facility] Comment on above: Paroxysmal SVT (supr aventricular tachycardia); Atrial flutter, unspecified type (Multi) Start: 09-22-2024 End: 09-22-2024 ambulatory [facility] Start: 09-20-2024 End: 09-20-2024 Montrell Pittarelloeve Brewer MD Work Phone: [facility] Start: 09-20-2024 End: [facility] Work Phone: [facility] Start: 09-20-2024 End: 09-20-2024 Office outpatient visit 25 minutes Kevin Brewer MD Work Phone: [facility] Comment on above: Essential hypertensi on, benign (Primary Dx); Bilateral leg edema; Paroxysmal SVT (supraventricular tachycardia) (HCC); Degeneration of intervertebral disc of lumbar region with discogenic back pain and lower extremity pain; Primary osteoarthritis of right hip; Class 3 severe obesity due to excess calories without serious comorbidity with body mass index (BMI) of 40.0 to 44.9 in adult ([facility]) Start: 09-20-2024 End: 09-20-2024 ambulatory KEVIN BREWER Not Available Start: 09-16-2024 End: 09-16-2024 ambulatory [facility] Ambulatory Start: 09-16-2024 End: 09-16-2024 Office outpatient visit 25 minutes Esther Mejía MD Work Phone: [facility] Comment on above: Paroxysmal SVT (supr aventricular tachycardia); High risk medication use; 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; Palpitations; Primary hypertension; Unspecified right bundle-branch block; Mixed hyperlipidemia; RENAE on CPAP; Former cigarette smoker; Morbid obesity with BMI of 40.0-44.9, adult (Multi) Start: 09-11-2024 End: 09-12-2024 Emergency department patient visit Kevin Brewer MD Work Phone: -Emergency Room Work Phone: Start: 09-06-2024 End: 09-06-2024 Office outpatient visit 25 minutes Cherylstephanie Gibsont MEMO Work Phone: [facility] Comment on above: Atrial tachycardia ( Primary Dx); Paroxysmal SVT (supraventricular tachycardia); Chronic anticoagulation; H/O cardiac radiofrequency ablation Start: 09-06-2024 End: 09-06-2024 ambulatory [facility] Ambulatory Start: 08-08-2024 End: 08-08-2024 ambulatory Shantelle Ornelas MD Facility:[facility] Start: 08-03-2024 End: 08-03-2024 ambulatory TERESA Guerrero [facility] Start: 08-03-2024 End: 08-03-2024 Subsequent hospital visit by physician Antonina Emery Ec[facility] Start: 08-03-2024 End: 08-03-2024 Clinisync Result Encounter Generic External Data Provider [facility] External Department Unsolicited Start: 08-03-2024 End: 08-03-2024 Clinisync Result Encounter Generic External Data Provider [facility] External Department Unsolicited Start: 08-03-2024 End: 08-03-2024 Subsequent hospital visit by physician Mikaela Temple MD Work Phone: [facility] Comment on above: Paroxysmal SVT (supr aventricular tachycardia) (Primary Dx); Atrial flutter, paroxysmal (Multi) Start: 08-03-2024 ambulatory MIKAELA TEMPLE [facility] Start: 06-13-2024 End: 06-13-2024 Subsequent hospital visit by physician Jarrett Coppola MD Work Phone: [facility] Comment on above: Atrial fibrillation, unspecified type (Multi); Abnormal electrocardiogram (ECG) (EKG); Abnormal findings on diagnostic imaging of heart and coronary circulation Atrial fibrillation, unspecified type (Multi) Start: 06-13-2024 End: 06-13-2024 ambulatory [facility] Start: 06-07-2024 End: 06-07-2024 Office outpatient new 60 minutes Mikaela Temple MD Work Phone: [facility] Comment on above: Atrial fibrillation, unspecified type (Multi) (Primary Dx); Bifascicular block; Paroxysmal SVT (supraventricular tachycardia) (CMS-HCC); Typical atrial flutter (Multi); Abnormal electrocardiogram (ECG) (EKG); Abnormal findings on diagnostic imaging of heart and coronary circulation Start: 06-07-2024 End: 06-07-2024 ambulatory [facility] Ambulatory Start: 06-06-2024 End: 06-06-2024 ambulatory [facility] Amb[facility] Start: 06-06-2024 End: 06-06-2024 Office outpatient visit 40 minutes Esther Mejía MD Work Phone: [facility] Comment on above: Bifascicular block; Paroxysmal SVT (supraventricular tachycardia) (CMS-HCC); High risk medication use; Obstructive sleep apnea syndrome; Morbid obesity with BMI of 40.0-44.9, adult (Multi); Former cigarette smoker Start: 05-31-2024 End: 05-31-2024 ambulatory [facility] Ambulatory Start: 05-30-2024 End: 05-30-2024 Clinisync Result Encounter Generic External Data Provider [facility] External Department Unsolicited Start: 05-30-2024 End: 05-30-2024 Clinisync Result Encounter Generic External Data Provider [facility] External Department Unsolicited Start: 05-16-2024 End: 05-16-2024 ambulatory Yin HAWK Facility:[facility] Start: 04-12-2024 End: 04-12-2024 ambulatory Demond BUTLER Facility:[facility] Start: 04-12-2024 End: 04-12-2024 Office outpatient visit 10 minutes G Chavez Butler MD Work Phone: Radiation [...] encounter procedure Kevin Brewer MD Work Phone: [facility] Work Phone: Start: 03-23-2024 End: 03-23-2024 Postop follow up visit related to original px Kevin Brewer MD Work Phone: [facility] Comment on above: Medicare annual well ness visit, subsequent (Primary Dx); Paroxysmal SVT (supraventricular tachycardia) (CMS/HCC); Prostate cancer (CMS/HCC) Start: 03-23-2024 End: 03-23-2024 ambulatory KEVIN BREWER Not Available Start: 03-14-2024 End: 03-14-2024 ambulatory Shantelle Ornelas MD Facility:[facility] Start: 03-08-2024 End: 03-08-2024 Office outpatient visit 25 minutes Mary Tam TRANSPORT AIDE-TRANSCRIPTION Work Phone: [facility] Comment on above: Malignant neoplasm o f prostate (Multi) (Primary Dx); Paroxysmal SVT (supraventricular tachycardia) (CMS-HCC); Body mass index (BMI) 40.0-44.9, adult (Multi); High risk medication use; Mixed hyperlipidemia; Primary hypertension; Bifascicular block; Morbid obesity with BMI of 40.0-44.9, adult (Multi); Obstructive sleep apnea syndrome Start: 03-08-2024 End: 03-08-2024 [facility] Start: 02-22-2024 End: 02-22-2024 ambulatory Dayna Pulido COVER MACHINE OPERATOR Work Phone: [facility] [...] Start: 02-17-2024 End: 02-17-2024 ambulatory Dayna Pulido COVER MACHINE OPERATOR Work Phone: [facility] Comment on above: Lumbar radiculopathy (Primary Dx); Chronic right-sided low back pain with right-sided sciatica Start: 02-15-2024 End: 02-15-2024 Bamboo flowsheet Dayna Pulido COVER MACHINE OPERATOR Work Phone: [facility] Start: 02-15-2024 End: 02-15-2024 Bamboo flowsheet Dayna Pulido COVER MACHINE OPERATOR Work Phone: [facility] Start: 02-15-2024 End: 02-15-2024 ambulatory Dayna Pulido COVER MACHINE OPERATOR Work Phone: [facility] Comment on above: Lumbar radiculopathy (Primary Dx); Chronic right-sided low back pain with right-sided sciatica Start: 02-10-2024 End: 02-10-2024 Bamboo flowsheet Dayna Pulido COVER MACHINE OPERATOR Work Phone: [facility] Start: 02-10-2024 End: 02-10-2024 Bamboo flowsheet Dayna Pulido COVER MACHINE OPERATOR Work Phone: [facility] Start: 02-10-2024 End: 02-10-2024 ambulatory Dayna Pulido COVER MACHINE OPERATOR Work Phone: [facility] Comment on above: Lumbar radiculopathy (Primary Dx); Chronic right-sided low back pain with right-sided sciatica Start: 02-08-2024 End: 02-08-2024 Bamboo flowsheet Dayna Pulido COVER MACHINE OPERATOR Work Phone: [facility] Start: 02-08-2024 End: 02-08-2024 Bamboo flowseve Pulido COVER MACHINE OPERATOR Work Phone: [facility] Start: 02-08-2024 End: 02-08-2024 ambulatory Dayna Pulido COVER MACHINE OPERATOR Work Phone: [facility] Comment on above: Lumbar radiculopathy (Primary Dx); Chronic right-sided low back pain with right-sided sciatica Start: 02-05-2024 End: 02-05-2024 Bamboo flowsheet Cheryl Tamayo COVER MACHINE OPERATOR [facility] Start: 02-05-2024 End: 02-05-2024 Bamboo flowsheet Cheryl Tamayo COVER MACHINE OPERATOR [facility] Start: 02-05-2024 End: 02-05-2024 ambulatory Cheryl Tamayo COVER MACHINE OPERATOR [facility] Comment on above: Lumbar radiculopathy (Primary Dx); Chronic right-sided low back pain with right-sided sciatica Start: 02-03-2024 End: 02-03-2024 Bamboo flowseve Pulido COVER MACHINE OPERATOR Work Phone: [facility] Start: 02-03-2024 End: 02-03-2024 Bamboo flowsheet Dayna Pulido COVER MACHINE OPERATOR Work Phone: [facility] Start: 02-03-2024 End: 02-03-2024 ambulatory Dayna Pulido COVER MACHINE OPERATOR Work Phone: [facility] Comment on above: Lumbar radiculopathy (Primary Dx); Chronic right-sided low back pain with right-sided sciatica Start: 01-27-2024 End: 01-27-2024 Bamboo flowsheet Franchesca Gray PT Work Phone: [facility] Start: 01-27-2024 End: 01-27-2024 Bamboo flowsheet Franchesca J Yo PT Work Phone: [facility] Start: 01-27-2024 End: 01-27-2024 ambulatory Franchesca J Yo PT Work Phone: [facility] Comment on above: Lumbar radiculopathy (Primary Dx); Chronic right-sided low back pain with right-sided sciatica Start: 01-25-2024 End: 01-25-2024 Bamboo flowsheet Dayna Pulido COVER MACHINE OPERATOR Work Phone: [facility] Start: 01-25-2024 End: 01-25-2024 Bamboo flowsheet Dayna Pulido COVER MACHINE OPERATOR Work Phone: [facility] Start: 01-25-2024 End: 01-25-2024 ambulatory Dayna Pulido COVER MACHINE OPERATOR Work Phone: [facility] Comment on above: Lumbar radiculopathy (Primary Dx); Chronic right-sided low back pain with right-sided sciatica Start: 01-21-2024 End: 01-21-2024 Bamboo flowseve Pulido COVER MACHINE OPERATOR Work Phone: [facility] Start: 01-21-2024 End: 01-21-2024 Bamboo moi Pulido COVER MACHINE OPERATOR Work Phone: [facility] Start: 01-21-2024 End: 01-21-2024 ambulatory Dayna Pulido COVER MACHINE OPERATOR Work Phone: [facility] Comment on above: Lumbar radiculopathy (Primary Dx); Chronic right-sided low back pain with right-sided sciatica Start: 01-20-2024 End: 01-20-2024 Bamboo flowsheet Franchesca J Yo PT Work Phone: [facility] Start: 01-20-2024 End: 01-20-2024 Bamboo flowsheet Franchesca J Yo PT Work Phone: [facility] Start: 01-20-2024 End: 01-20-2024 ambulatory Franchesca J Yo PT Work Phone: [facility] Comment on above: Lumbar radiculopathy (Primary Dx); Chronic right-sided low back pain with right-sided sciatica Start: 01-14-2024 End: 01-14-2024 Bamboo flowsheet Tanja Rushing Ding PT Work Phone: [facility] Start: 01-14-2024 End: 01-14-2024 Bamboo flowsheet Tanja Ding PT Work Phone: [facility] Start: 01-14-2024 End: 01-14-2024 ambulatory Tanja Rushing Ding PT Work Phone: [facility] [...] 12-02-2023 End: 12-02-2023 Bamboo flowsheet Naida Hobson NP Work Phone: [facility] Start: 12-02-2023 End: 12-02-2023 Bamboo flowsheet Naida Hobson SHALE PLANER OPERATOR Work Phone: [facility] Start: 12-02-2023 End: 12-02-2023 ambulatory NAIDA HOBSON Not Available Start: 12-02-2023 End: 12-02-2023 Office outpatient visit 25 minutes Naida Hobson SHALE PLANER OPERATOR Work Phone: [facility] Comment on above: Morbid obesity due t o excess calories (CMS/HCC) (Primary Dx); RENAE on CPAP; Hypoxia; Snoring; Daytime hypersomnolence Start: 11-17-2023 End: 11-17-2023 ambulatory Franchesca Nj [facility] Work Phone: Start: 11-17-2023 End: 11-17-2023 Departed Referred DO Franchescatiarra Nj Work Phone: [facility] Start: 10-28-2023 End: 10-28-2023 Bamboo flowsheet Franchesca Nj DO Work Phone: [facility] Start: 10-28-2023 End: 10-28-2023 Bamboo flowsheet Franchesca Nj DO Work Phone: [facility] Start: 10-28-2023 End: 10-28-2023 Patient encounter procedure Franchesca Nj Work Phone: [facility] Comment on above: Encounter for screen ing colonoscopy (Primary Dx) Start: 10-28-2023 End: 10-28-2023 ambulatory FRANCHESCA ONDINA Not Available Start: 05-11-2023 End: 05-11-2023 Patient encounter procedure Yin HAWK [facility] Start: 04-07-2023 End: 04-07-2023 Patient encounter procedure Demond Butler MD Work Phone: Radiation Oncology Comment on above: Malignant neoplasm o f prostate (HCC) (Primary Dx) Start: 02-10-2023 End: 02-10-2023 Office outpatient visit 25 minutes Parveen Santo MD Work Phone: [facility] Comment on above: Paroxysmal SVT (supr aventricular tachycardia) (Primary Dx); Primary hypertension; Mixed hyperlipidemia; Morbid obesity with BMI of 40.0-44.9, adult (CMS/HCC); Bifascicular block Start: 09-30-2022 End: 09-30-2022 Patient encounter procedure Demond Butler MD Work Phone: Radiation Oncology Comment on above: Malignant neoplasm o f prostate (HCC) (Primary Dx) Start: 09-08-2022 End: 09-08-2022 Patient encounter procedure Yin HAWK [facility] Start: 07-25-2022 Rx Renewal Kevin Brewer Work Phone: [facility] 250 DO Work Phone: Start: 07-02-2022 End: 07-03-[address] KEVIN BREWER Facility: Start: 04-07-2022 Rx Renewal Kevin Brewer Work Phone: [facility] 250 DO Work Phone: Start: 04-01-2022 End: 04-01-2022 ambulatory Yancy Oneill APRN.TRANSCRIPTION Work Phone: Hematology/Oncology Comment on above: Prostate cancer (HCC ) Start: 04-01-2022 End: 04-01-2022 Patient encounter procedure Yancy Oneill APRN.TRANSCRIPTION Work Phone: [facility] Comment on above: Malignant neoplasm o f prostate (HCC) (Primary Dx) Start: 03-21-2022 End: 03-21-2022 Patient encounter procedure Yin HAWK [facility] Start: 03-11-2022 End: 03-12-[address] KEVIN BREWER Facility:[facility] Start: 02-11-2022 Office outpatient vi sit 15 minutes Kevin Brewer Work Phone: [facility] [address] DO Work Phone: Start: 02-05-2022 Telephone encounter Demond Butler MD Work Phone: Radiation Oncology Comment on above: Future Appointment Start: 01-14-2022 Rx Renewal Kevin Brewer Work Phone: [facility] [address] DO Work Phone: Start: 09-30-2021 End: 09-30-2021 Patient encounter procedure Yin HAWK [facility] Start: 09-23-2021 End: 09-24-[address] KEVIN BREWER Facility:[facility] Start: 08-14-2021 End: 08-14-2021 Patient encounter procedure Demond Butler MD Work Phone: Radiation Oncology Comment on above: Malignant neoplasm o f prostate (HCC) (Primary Dx) Start: 08-12-2021 Patient encounter procedure Darwin Brewer Work Phone: [facility] [address] DO Work Phone: Start: 08-09-2021 End: 08-09-2021 Patient encounter procedure Yin HAWK [facility] Start: 08-05-2021 Telephone encounter Demond Butler MD Work Phone: Radiation Oncology Comment on above: FYI-No Action Needed ; Covid19 Concern Start: 07-25-2021 Patient encounter procedure Demond Butler MD Work Phone: [place] Start: 07-25-2021 Radiation Oncology Note G Kedar Butler MD Work Phone: Radiation Oncology Comment on above: Simulation Note Start: 07-25-2021 End: 07-25-2021 Subsequent hospital visit by physician Pet Ct Scan Breonna Mc Work Phone: Radiology Pet CT Start: 07-24-2021 AUDIT Kevin Brewer Work Phone: [facility] 250 DO Work Phone: Start: 07-16-2021 End: 07-17-[address] KEVIN BREWER Facility:[facility] Start: 07-04-2021 End: 07-04-2021 Patient encounter procedure Abdulaziz Ramirez EUNICE [facility] Start: 06-27-2021 End: 06-28-2021 Patient encounter procedure [...] 04-26-2021 Rx Renewal Kevin Brewer Work Phone: [facility] 250 DO Work Phone: Start: 04-09-2021 End: 04-09-2021 Subsequent hospital visit by physician Demond Butler MD Work Phone: Radiology Pet CT Start: 02-15-2021 Office outpatient vi sit 15 minutes Kevin Brewer Work Phone: [facility] 250 DO Work Phone: Start: 01-22-2021 Rx Renewal Kevin Brewer Work Phone: [facility] 250 DO Work Phone: Procedures Date Procedure Procedure Detail Performing Clinician Start: 08-03-2024 Ecg routine ecg w/le ast 12 lds trcg only w/o i&r Teresa Hobbs TRANSPORT AIDE-TRANSCRIPTION Work Phone: Start: 08-03-2024 PULSE OXIMETRY, CONTINUOUS Lidya Farrar MD Work Phone: Start: 08-03-2024 Electrophysiology study Mikaela Temple MD Work Phone: Start: 08-03-2024 Coagulation time activated Mikaela Temple MD Work Phone: Start: 08-03-2024 End: 08-03-2024 Coagulation time activated Mikaela Temple MD Work Phone: Start: 08-03-2024 Ecg routine ecg w/le ast 12 lds trcg only w/o i&r Teresa Fritz TRANSPORT AIDE-TRANSCRIPTION Work Phone: Start: 08-03-2024 VERAB/VERIFY ABORH Ruddy Temple MD Work Phone: Start: 08-03-2024 Blood typing serologic rh (d) Teresa Fritz TRANSPORT AIDE-TRANSCRIPTION Work Phone: Start: 08-03-2024 Comprehensive metabolic panel Teresa Fritz TRANSPORT AIDE-TRANSCRIPTION Work Phone: Start: 08-03-2024 UH CBC AND DIFFERENTIAL Generic External Data Provider Start: 08-03-2024 PREPARE RBC Teresa walden TRANSPORT AIDE-TRANSCRIPTION Work Phone: Start: 06-13-2024 CARDIOLOGY PROCEDURE NOT PERFORMED Mikaela Temple MD Work Phone: Start: 06-13-2024 CARDIOLOGY PROCEDURE NOT PERFORMED Mikaela Temple MD Work Phone: Start: 06-13-2024 Ecg routine ecg w/le ast 12 lds trcg only w/o i&r Teresa Fritz TRANSPORT AIDE-TRANSCRIPTION Work Phone: Start: 06-07-2024 Ecg routine ecg w/le ast 12 lds w/i&r Mikaela Temple MD Work Phone: Start: 06-06-2024 Ecg routine ecg w/le ast 12 lds w/i&r Esther Mejía MD Work Phone: Start: 05-30-2024 ALL BASIC METABOLIC PANEL Generic External Data Provider Start: 03-23-2024 PSA screening [facility] Provi kilo Start: 03-23-2024 MHPT PSA, DIAGNOSTIC Ge neric External Data Provider Start: 03-08-2024 Ecg routine ecg w/le ast 12 lds w/i&r Mary Tam TRANSPORT AIDE-TRANSCRIPTION Work Phone: Start: 12-03-2023 MHPT PSA, DIAGNOSTIC Ge neric External Data Provider Start: 11-17-2023 Colonoscopy Naida smith SHALE PLANER OPERATOR Work Phone: Start: 08-25-2023 Colonoscopy Franchesca Lowery tt DO Work Phone: Start: 03-31-2023 PSA screening [facility] Provi kilo Start: 02-10-2023 Ecg routine ecg w/le ast 12 lds w/i&r Parveen Santo MD Work Phone: Start: 08-29-2022 PSA screening [facility] Provi kilo Start: 03-11-2022 End: 03-11-2022 PSA screening [facility] Provider Comment on above: Performed By: #### P SAD #### [facility] [address] [place] [address] Dr. Shama Naylor Start: 09-23-[address] KEVIN BROOKS Comment on above: Performed By: #### P SAD #### [facility] [address] [address] [address] Shama Naylor Start: 07-16-2021 End: 07-16-2021 PSA screening [facility] Provider Comment on above: Performed By: #### P SAD #### [facility] [address] [address] [address] Shama Naylor Start: 06-27-2021 Brachytherapy Yin GRULLON Start: 03-14-2021 Transrectal biopsy o f prostate Abdulaziz DAWSON Arthroplasty of wrist Abdulaziz DAWSON Colonoscopy Abdulaziz DAWSON Surgical repair of u pper extremity Kevin A Naderer Work Phone: Total colonoscopy Kevin A Nad erer Work Phone: Plan of Treatment Date Care Activity Detail Author Start: 11-16-2033 Screening for malignant neoplasm of colon [facility] Start: 08-24-2033 Screening for malignant neoplasm of colon [facility] Start: 08-03-2025 Creatinine measurement Creatinine Level [facility] Start: 08-03-2025 Diabetes mellitus screening Diabetes Screening [facility] Start: 08-03-2025 Potassium measurement Potassium Level [facility] Start: 2025 RSV Vaccine (1 - 1-dose 75+ series) RSV Vaccine (1 - 1-dose 75+ series) [facility] Start: 04-18-2025 End: 04-18-2025 Patient encounter procedure 04/18/2025 1:15 PM EST Office Visit Radiation Oncology [address] [place] [address] [place] [address] Demond Butler MD [address] [place] [address] [place] [address] 1 yr rv Radiation Oncology Comment on above: 1 yr rv Start: 04-12-2025 End: 07-12-2025 Prostate specific Ag [Mass/volume] in Serum or Plasma PROSTATE-SPECIFIC ANTIGEN DIAGNOSTIC Lab Routine Malignant neoplasm of prostate (HCC) Expected: 04/12/2025, Expires: 07/12/2025 [facility] Work Phone: Comment on above: Expected: 04/12/2025, Expires: Start: 03-27-2025 End: 03-27-2025 Patient encounter procedure 03/27/2025 11:30 AM EST Office Visit [facility] [address] [place] [address] Kevin Brewer MD [address] [place] [address] [facility] Start: 03-23-2025 Medicare Annual Wellness (AWV) Medicare Annual Wellness (AWV) [facility] Start: 03-20-2025 End: 03-20-2025 Patient encounter procedure 03/20/2025 10:15 AM EST Office Visit [facility] [address] [facility] [address] [place] [address] Esther Mejía MD [address] [facility] [address] [place] [address] [facility] Start: 12-20-2024 Medicare Annual Wellness (AWV) Medicare Annual Wellness (AWV) [facility] Start: 11-16-2024 End: 11-16-2024 Patient encounter procedure [facility] Start: 11-03-2024 End: 08-03-2025 Holter monitor study Holter Or Event Rehabilitation Services Coordinator Cardiac Services Routine Paroxysmal SVT (supraventricular tachycardia) Atrial flutter, paroxysmal (Multi) Expected: 11/03/2024 (Approximate), Expires: 08/03/2025 [facility] Service Area Work Phone: Comment on above: Expected: 11/03/2024 (Approximate), Expi res: 08/03/2025 Start: 11-03-2024 End: 11-03-2024 Professional / ancillary services management 11/03/2024 9:30 AM EDT Ancillary Procedure [facility] [address] [facility] [address] [place] [address] [facility] Start: 10-31-2024 Influenza vaccination [facility] Start: 09-20-2024 End: 09-20-2024 Patient encounter procedure [facility] Comment on above: Arrived Start: 09-16-2024 End: 09-16-2024 Patient encounter procedure 09/16/2024 10:30 AM EDT Office Visit [address] [address] Esther Mejía MD [address] [facility] [address] [place] [address] [facility] Start: 09-12-2024 Plain chest X-ray XR chest 2V* [facility] Start: 09-12-2024 XR Chest 2 Views [facility] Start: 09-06-2024 End: 09-06-2024 Patient encounter procedure 09/06/2024 10:00 AM EDT Office Visit [facility] [address] [facility] [address] [place] [address] Cheryl Bautista PA-C [address] [facility] [address] [place] [address] [facility] Start: 09-05-2024 End: 09-05-2024 Patient encounter procedure 09/05/2024 10:00 AM EDT Office Visit [address] [address] Esther Mejía MD [address] [facility] [address] [place] [address] [facility] Start: 06-07-2024 End: 06-07-2026 Cardioversion External Cardioversion External Cardiac Services Routine Atrial fibrillation, unspecified type (Multi) Expected: 06/07/2024 (Approximate), Expires: 06/07/2026 [facility] Service Area Work Phone: Comment on above: Expected: 06/07/2024 (Approximate), Expi res: 06/07/2026 Start: 06-07-2024 End: 06-07-2024 Patient encounter procedure 06/07/2024 10:00 AM EDT Office Visit [facility] [address] [place] [address] Mikaela Temple MD [address] [place] [address] [facility] Start: 04-05-2024 End: 04-05-2024 Patient encounter procedure 04/05/2024 1:15 PM EST Office Visit Radiation Oncology [address] [facility] [address] Demond Butler MD [address] [facility] [address] 1 yr rv Radiation Oncology Comment on above: 1 yr rv Start: 03-23-2024 End: 03-23-2024 Patient encounter procedure [facility] Comment on above: Arrived Start: 03-08-2024 End: 03-08-2024 Patient encounter procedure 03/08/2024 9:00 AM EST Office Visit [facility] [address] [facility] [address] [place] [address] Parveen Santo MD [address] [facility] [address] [place] [address] [facility] Start: 03-02-2024 Advance Directive Discussion Advance Directive Discussion [facility] Start: 02-22-2024 End: 02-22-2024 ambulatory 02/22/2024 7:00 AM EST Treatment [facility] [address] [place] [address] Dayna Pulido, COVER MACHINE OPERATOR [address] [place] [address] [facility] Start: 02-17-2024 End: 02-16-2025 XR Hip - right 3 Views XR hip right 2 or 3 views Imaging Routine Chronic right hip pain Expected: 02/17/2024, Expires: 02/16/2025 [facility] Work Phone: Comment on above: Expected: 02/17/2024, Expires: Start: 02-17-2024 End: 02-17-2024 Patient encounter procedure 02/17/2024 1:30 PM EST Office Visit [facility] [address] [place] [address] Kevin Brewer MD [address] [place] [address] [facility] Start: 02-17-2024 End: 02-17-2024 ambulatory 02/17/2024 9:00 AM EST Treatment [facility] [address] [place] [address] Dayna Pulido, COVER MACHINE OPERATOR [address] [place] [address] [facility] Start: 02-15-2024 End: 02-15-2024 [...] [facility] [address] [place] [address] Franchesca Gray, PT [address] [facility] [address] Arrived [facility] Comment on above: Arrived Start: 12-21-2023 End: 12-20-2024 MR Lumbar spine WO contrast MR lumbar spine wo contrast Imaging Routine Lumbar radiculopathy Chronic right-sided low back pain with right-sided sciatica Expected: 12/21/2023, Expires: 12/20/2024 [facility] Work Phone: Comment on above: Expected: 12/21/2023, Expires: Start: 12-21-2023 End: 12-21-2023 Patient encounter procedure 12/21/2023 8:45 AM EDT Office Visit [facility] [address] [place] [id number] Kevin Brewer MD [address] [place] [id number] [facility] Start: 11-01-2023 COVID-19 Vaccine ( season) COVID-19 Vaccine ( season) [facility] Start: 11-01-2023 Covid-19 Vaccine ( season) Covid-19 Vaccine ( season) [facility] Start: 11-01-2023 Influenza vaccination Influenza Vaccine (#1) [facility] Start: 10-28-2023 End: 10-28-2023 Patient encounter procedure 10/28/2023 10:00 AM EDT Office Visit [facility] [address] [place] [address] Franchesca Nj DO [address] [place] [address] Arrived [facility] Comment on above: Arrived Start: 04-07-2023 End: 07-07-2023 Prostate specific Ag [Mass/volume] in Serum or Plasma PSA/PROSTSPECAG DIAG Lab Routine Malignant neoplasm of prostate (HCC) Expected: 04/07/2023, Expires: 07/07/2023 [facility] Work Phone: Comment on above: Expected: 04/07/2023, Expires: Start: 04-02-2023 End: 06-02-2023 Prostate specific Ag [Mass/volume] in Serum or Plasma PSA/PROSTSPECAG DIAG Lab Routine Malignant neoplasm of prostate (HCC) Expected: 04/02/2023 (Approximate), Expires: 06/02/2023 [facility] Work Phone: Comment on above: Expected: 04/02/2023 (Approximate), Expi res: 06/02/2023 Start: 03-02-2023 Advance Directive Discussion Advance Directive Discussion [facility] Start: 03-02-2023 Depression Assessment Depression Assessment [facility] Start: 02-10-2023 FUV, Provider: Parveen Santo, Status: Pen, Time: 11:00 AM FUV, Provider: Parveen Santo, Status: Pen, Time: 11:00 AM [facility] [address] DO Work Phone: Start: 10-31-2022 Covid-19 Vaccine ( season) Covid-19 Vaccine ( season) [facility] Start: 10-31-2022 Influenza vaccination [facility] Start: 03-02-2022 ADVANCE DIRECTIVE DISCUSSION ADVANCE DIRECTIVE DISCUSSION [facility] Start: 03-02-2022 DEPRESSION ASSESSMENT DEPRESSION ASSESSMENT [facility] Start: 02-11-2022 FUV, Provider: Parveen Santo, Status: Pen, Time: 10:50 AM FUV, Provider: Parveen Santo, Status: Pen, Time: 10:50 AM [facility] [address] DO Work Phone: Start: 10-31-2021 Influenza vaccination [facility] Start: 04-15-2021 COVID-19 VACCINE (4 - Booster for Pfizer series) COVID-19 VACCINE (4 - Booster for Pfizer series) [facility] Start: 03-02-2021 ADVANCE DIRECTIVE DISCUSSION ADVANCE DIRECTIVE DISCUSSION [facility] Start: 03-02-2021 DEPRESSION ASSESSMENT DEPRESSION ASSESSMENT [facility] Start: 02-15-2021 FUV, Provider: Parveen Santo, Status: Navarro, Time: 1:30 PM FUV, Provider: Parveen Santo, Status: Navarro, Time: 1:30 PM [facility] [address] DO Work Phone: Start: 02-07-2021 COVID-19 VACCINE (4 - Booster for Pfizer series) COVID-19 VACCINE (4 - Booster for Pfizer series) [facility] Start: 02-07-2021 COVID-19 VACCINE (4 - Pfizer series) COVID-19 VACCINE (4 - Pfizer series) [facility] Start: 07-02-2015 Abdominal aortic aneurysm screening Abdominal Aortic Aneurysm (AAA) Screening [facility] Start: 07-02-2015 Pneumococcal Vaccine: 65+ (1 of 1 - PCV) Pneumococcal Vaccine: 65+ (1 of 1 - PCV) [facility] Start: 07-02-2015 Pneumococcal Vaccine: 65+ Years (1 - PCV) Pneumococcal Vaccine: 65+ Years (1 - PCV) [facility] Start: 07-02-2015 Pneumococcal Vaccine: 65+ Years (1 of 1 - PCV) Pneumococcal Vaccine: 65+ Years (1 of 1 - PCV) [facility] Start: 07-02-2015 PNEUMOCOCCAL: 65+ (1 - PCV) PNEUMOCOCCAL: 65+ (1 - PCV) [facility] Start: 07-02-2015 PNEUMOVAX AGE 65 AND OVER WITH 5YR LOOKBACK (#1) PNEUMOVAX AGE 65 AND OVER WITH 5YR LOOKBACK (#1) [facility] Start: 2010 RSV High Risk: (Elderly (60+) or Population) (1 - Risk 60-74 years 1-dose series) RSV High Risk: (Elderly (60+) or Population) (1 - Risk 60-74 years 1-dose series) [facility] Start: 2010 RSV Vaccine (1 - 1-dose 60+ series) RSV Vaccine (1 - 1-dose 60+ series) [facility] Start: 2000 Pneumococcal vaccination Pneumococcal Vaccine (1 of 1 - PCV) [facility] Start: 2000 Pneumococcal Vaccine: 50+ (1 of 1 - PCV) Pneumococcal Vaccine: 50+ (1 of 1 - PCV) [facility] Start: 2000 Pneumococcal Vaccine: 65+ Years (1 of 1 - PCV) Pneumococcal Vaccine: 65+ Years (1 of 1 - PCV) [facility] Start: 2000 SHINGRIX VACCINE (1 of 2) SHINGRIX VACCINE (1 of 2) [facility] Start: 2000 Zoster Vaccines (1 of 2) Zoster Vaccines (1 of 2) [facility] Start: 07-02-1995 COLOGUARD (FIT-DNA) COLOGUARD (FIT-DNA) [facility] Start: 07-02-1995 Colonoscopy COLONOSCOPY [facility] Start: 07-02-1995 COLORECTAL CANCER SCREENING COLORECTAL CANCER SCREENING [facility] Start: 07-02-[address] COLONOGRAPHY [facility] Start: 07-02-1995 DIABETES SCREEN DIABETES SCREEN [facility] Start: 07-02-1995 Diabetes Screening Diabetes Screening [facility] Start: 07-02-1995 FECAL OCCULT BLOOD FECAL OCCULT BLOOD [facility] Start: 07-02-1995 Screening for malignant neoplasm of colon [facility] Start: 07-02-1995 SIGMOIDOSCOPY SIGMOIDOSCOPY [facility] Start: 1985 Lipid panel Lipid Screening [facility] Start: 1985 LIPID SCREEN LIPID SCREEN [facility] Start: 1972 DTaP/Tdap/Td Vaccines (1 - Tdap) DTaP/Tdap/Td Vaccines (1 - Tdap) [facility] Start: 1969 SHINGRIX VACCINE (1 of 2) SHINGRIX VACCINE (1 of 2) [facility] Start: 1969 Urine microalbumin profile [facility] Start: 1968 Anxiety Screening Anxiety Screening [facility] Start: 1968 Depression Screening Depression Screening [facility] Start: 1968 Diabetes mellitus screening Diabetes Screening [facility] Start: 1968 HEPATITIS C SCREENING HEPATITIS C SCREENING [facility] Start: 1968 Hepatitis C screening Hepatitis C Screening [facility] Start: 1962 Adult depression screening assessment DEPRESSION SCREENING [facility] Start: 1956 PNEUMOCOCCAL: 65+ (1 - PCV) PNEUMOCOCCAL: 65+ (1 - PCV) [facility] Start: 1950 ABDOMINAL AORTIC ANEURYSM SCREENING ABDOMINAL AORTIC ANEURYSM SCREENING [facility] Start: 1950 Abdominal aortic aneurysm screening Abdominal Aortic Aneurysm Screening [facility] Start: 1950 Echocardiography Echocardiogram [facility] Start: 1950 Lipid panel Lipid Panel [facility] Start: 1950 Medicare Annual Wellness (AWV) Medicare Annual Wellness (AWV) [facility] Start: 1950 Medicare Annual Wellness Visit Medicare Annual Wellness Visit (AWV) [facility] Start: 1950 Screening for malignant neoplasm of colon [facility] Start: 1950 Thyroid stimulating hormone measurement TSH Level [facility] End: 06-13-2024 Basic metabolic 2000 panel - Serum or Plasma Basic Metabolic Panel Lab STAT STAT (Lab) for 1 Occurrences starting 06/13/2024 until 06/13/2024 [facility] Work Phone: Comment on above: STAT (Lab) for 1 Occurrences starting until 06/13/2024 End: 06-13-2024 CBC panel - Blood by Automated count CBC Lab STAT STAT (Lab) for 1 Occurrences starting 06/13/2024 until 06/13/2024 [facility] Work Phone: Comment on above: STAT (Lab) for 1 Occurrences starting until 06/13/2024 ECG 12 Lead ECG 12 Lead ECG Routine High risk medication use 03/08/2024 9:00 AM EST [facility] Work Phone: ECG 12 lead ECG 12 lead ECG STAT 06/13/2024 11:03 AM EDT [facility] Work Phone: ECG 12 Lead ECG 12 Lead ECG Routine Paroxysmal SVT (supraventricular tachycardia) Atrial flutter, unspecified type (Multi) 09/22/2024 1:47 PM EDT [facility] Work Phone: ECG 12 lead (Clinic Performed) ECG 12 lead (Clinic Performed) ECG Routine Paroxysmal SVT (supraventricular tachycardia) 09/06/2024 9:52 AM EDT [facility] Work Phone: ECG 12 lead STAT ECG 12 lead STA T ECG STAT 08/03/2024 12:24 PM EDT [facility] Service Area Work Phone: Electrocardiogram, 12-lead PRN ACS symptoms [facility] Work Phone: Comment on above: As needed until discontinued starting Patient Education Palpitations ED [facility] Work Phone: Patient referral [facility] Work Phone: End: 06-13-2024 PT and aPTT panel - Platelet poor plasma by Coagulation assay Coagulation Screen Lab STAT STAT (Lab) for 1 Occurrences starting 06/13/2024 until 06/13/2024 [facility] Work Phone: Comment on above: STAT (Lab) for 1 Occurrences starting until 06/13/2024 End: 06-07-2026 US Heart Transesophageal Transesophageal Echo (ANGELICA) Echocardiography Routine Atrial fibrillation, unspecified type (Multi) Abnormal electrocardiogram (ECG) (EKG) Abnormal findings on diagnostic imaging of heart and coronary circulation 1 Occurrences starting 06/07/2024 until 06/07/2026 [facility] Work Phone: Comment on above: 1 Occurrences starting 06/07/2024 until 06/07/2026 [facility] Immunizations Immunization Date Immunization Notes Care Provider Concha lopez 11-28-2021 Fluzone High-Dose Quadrivalent 0.7 ML Intramuscular Suspension Prefilled Syringe Kevin Brewer Work Phone: [facility] [address] DO Work Phone: 11-28-2021 influenza virus vaccine, unspecified formulation Yin HAWK [facility] 11-28-2021 influenza, high dose seasonal, preservative-free Parveen Santo MD Work Phone: [facility] Work Phone: 12-13-2020 Pfizer-BioNTech COVID-19 Vacc 30 MCG/0.3ML Intramuscular Suspension Kevin A Naderer Work Phone: [facility] 05-19-2020 Pfizer-BioNTech COVID-19 Vacc 30 MCG/0.3ML Intramuscular Suspension Kevin A Naderer Work Phone: [facility] 04-28-2020 Pfizer-BioNTech COVID-19 Vacc 30 MCG/0.3ML Intramuscular Suspension Kevin A Naderer Work Phone: [facility] 03-02-2020 SARS-CoV-2 (COVID-19 ) mRNA BNT-162b2 vax Abdulaziz DAWSON [facility] Comment on above: Result Comment: pt i s fully vaccinated and has received the booster but does not remember the dates 12-14-2019 influenza virus vaccine, unspecified formulation Yin Deem [facility] 12-14-2019 influenza, injectabl e, quadrivalent, preservative free Kevin A Naderer Work Phone: [facility] 250 DO Work Phone: 12-01-2019 influenza virus vaccine, unspecified formulation Yin HAWK [facility] 12-01-2019 influenza, seasonal, injectable Kevin A Naderer Work Phone: [facility] 250 DO Work Phone: 02-09-2012 influenza virus vaccine, unspecified formulation Yin Deem [facility] 02-09-2012 influenza, seasonal, injectable Kevin A Naderer Work Phone: [facility] [address] DO Work Phone: Payers Date Payer Category Payer Self-pay [id number] 2020 Medicare supplementa l policy (as second payer) [employer] SENIOR SUPPLEMENT [id number] 2020 Private Health Insurance [employer]NAN Sonia VACA MEDICARE SUPPLEMENT [id number] 2020-Present [phone] [address] [address] [place] [address] Indemnity [id number] 2020 Private Health Insurance [id number] 2015 Medicare MEDICARE MEDICAR E A AND B [id number] 2015-Present [phone] [address] [address] [place] [address] Medicare [id number] 2015 Medicare [id number] 1959 Medicare [id number] 1959 Private Health Insurance [facility] [id number] 1950 Unknown [id number] 2.16.840.1.787986.3.579.2 .593 1950 Unknown [id number] 2.16.840.1.003075.3.579.2 .593 1950 Unknown [id number] 2.16.840.1.908312.3.579.2 .593 1950 Unknown [id number] 2.16.840.1.953986.3.579.2 .593 1950 Unknown [id number] 2.16.840.1.225729.3.579.2 .727 1950 Unknown [id number] 2.16.840.1.906183.3.579.2 .727 1950 Unknown [id number] 2.16.840.1.618310.3.579.2 .1246 1950 Unknown [id number] 2.16.840.1.327728.3.579.2 .124 1950 Unknown [id number] 2.16.840.1.779573.3.579.2 .1246 1950 Unknown [id number] 2.16.840.1.346955.3.579.2 .1246 1950 Unknown [id number] 2.16.840.1.325342.3.579.2 .1246 1950 Unknown [id number] 2.16.840.1.900991.3.579.2 .1259 1950 Unknown [id number] 2.16.840.1.364776.3.579.2 .9 1950 Unknown [id number] 2.16.840.1.418722.3.579.2 .1258 1950 Unknown [id number] 2.16.840.1.262443.3.579.2 .1258 1950 Unknown [id number] 2.16.840.1.219315.3.579.2 .1258 1950 Unknown [id number] 2.16.840.1.179309.3.579.2 .1258 1950 Unknown [id number] 2.16.840.1.000562.3.579.2 .1258 1950 Unknown [id number] 2.16.840.1.733604.3.579.2 .1258 1950 Unknown [id number] 2.16.840.1.037393.3.579.2 .1258 1950 Unknown [id number] 2.16.840.1.412596.3.579.2 .1258 1950 Unknown [id number] 2.16.840.1.199960.3.579.2 .1258 1950 Unknown [id number] 2.16.840.1.635481.3.579.2 .1258 1950 Unknown [id number] 2.16.840.1.973225.3.579.2 .1258 1950 Unknown [id number] 2.16.840.1.425538.3.579.2 .1258 1950 Unknown [id number] 2.16.840.1.109465.3.579.2 .1258 1950 Unknown [id number] 2.16.840.1.150818.3.579.2 .1258 1950 Unknown [id number] 2.16.840.1.299005.3.579.2 .1258 1950 Unknown [id number] 2.16.840.1.747335.3.579.2 .1258 1950 Unknown [id number] 2.16.840.1.108611.3.579.2 .1950 Unknown [id number] 2.16.840.1.090665.3.579.2 .1950 Unknown [id number] 2.16.840.1.461118.3.579.2 .1244 1950 Unknown [id number] 2.16.840.1.579107.3.579.2 .1244 1950 Unknown [id number] 2.16.840.1.548010.3.579.2 .1244 1950 Unknown [id number] 2.16.840.1.293641.3.579.2 .1243 1950 Unknown [id number] 2.16.840.1.209653.3.579.2 .1243 1950 Unknown [id number] 2.16.840.1.051628.3.579.2 .1243 1950 Unknown [id number] 2.16.840.1.664765.3.579.2 .1243 1950 Unknown [id number] 2.16.840.1.665196.3.579.2 .1244 Unknown Unknown [facility] [id number] Unknown [id number] 2.16.840.1.251210.3.579.2 .531 Unknown [id number] 2.16.840.1.675475.3.579.2 .531 Social History Date Type Detail Facility Start: 05-20-2021 End: 09-16-2024 Alcohol use Alcohol use [facility] Comment on above: 4 8 oz cups of coffe e/occasional decaf coffee; Quit in 1970s; Start: 04-03-2021 End: 08-30-2024 Tobacco smoking status NHIS Ex-smoker [facility] Start: 03-02-1971 End: 04-03-1981 History of tobacco use Current smoker [facility] End: 04-03-1981 History of tobacco use Pipe Smoker [facility] End: 04-03-1981 History of tobacco use Cigar Smoker [facility] Start: 04-03-2021 End: 08-30-2024 Tobacco use and exposure Smokeless tobacco non-user [facility] Start: 05-20-2021 End: 09-16-2024 Alcohol intake Current drinker of alcohol (finding) [facility] Start: 04-03-2021 History SDOH Alcohol Comment 2-3 times/wk [facility] Start: 1950 Sex Assigned At Not on file C [facility] Start: 03-10-2021 End: 08-03-2024 Exposure to SARS-CoV-2 (event) Not sure [facility] Start: 05-20-2021 End: 09-16-2024 Sex Assigned At Male [facility] Tobacco smoking status No Smokin g Status Entered [facility] Start: 03-21-2022 End: 09-12-2024 Tobacco smoking status Never smoked tobacco (finding) [facility] Start: 01-24-2022 End: 05-11-2023 Tobacco smoking status Never [facility] Start: 03-02-1971 End: 03-02-1973 History of tobacco use Cigarette Smoker [facility] Work Phone: Start: 02-06-2023 Alcohol Comment [facility] Work Phone: Start: 1950 Sex Assigned At Male [facility] Do you belong to any clubs or organizations such as confucianist groups, unions, fraternal or athletic groups, or [...] Typically have drinks with dinner. [facility] Start: 08-30-2024 Tobacco Comment Was an occasio nal smoker of a pipe. [facility] Work Phone: Sex Male (finding) [facility] How often do you nee d to have someone help you when you read instructions, pamphlets, or other written material from your doctor or pharmacy [SILS] Never [facility] How often to you hav e a drink containing alcohol? 2-4 times a month [facility] How many standard dr inks containing alcohol do you have on a typical day? 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 [C-SSRS] [facility] Work Phone: 05-11-2023 Functional Status N/A [facility] 09-08-2022 Functional Status N/A [facility] 03-21-2022 Functional Status N/A [facility] 09-30-2021 Functional Status N/A [facility] Clinical Notes 06-11-2021 to 09-22-2024 Marisol Bravo LPN - 09/22/2024 2:00 PM Sumi Brewer MD - 09/20/2024 9:45 AM Sumi Brewer MD - 09/20/2024 9:44 AM Sumi Brewer MD - 09/20/2024 9:44 AM EDTPatient InstructionsAttachments Note Date & Type Note Facility 09-22-2024 History of Present illness Narrative Patient here for EKG visit ordered by Dr. Mejía due to paroxysmal SVT. Dr. Abraham in suite to review EKG prior to discharge. Patient here due to follow up from medication adjustments. Medication list Updated verbally. Has cardiac complaints elevated heart rate that is increasing getting better. To Dr. Mejía to read. Vitals: 09/22/24 1425 BP: 130/70 BP Location: Left arm Patient Position: Sitting Pulse: 69 Weight: 141 kg (311 lb) Height: 1.88 m (6' 2 ) documented in this encounter [facility] Work Phone: 09-20-2024 History of Present illness Narrative Associated Problem(s): Primary osteoarthritis of right hip Pain unchanged and follow with pain management. Associated Problem(s): Paroxysmal SVT (supraventricular tachycardia) (HCC) Occasional palpitations and follow with cardiology. Associated Problem(s): Essential hypertension, benign BP controlled and monitor PRN. Associated Problem(s): Degeneration of intervertebral disc of lumbar region with discogenic back pain and lower extremity pain Pain stable and follow with pain management. Associated Problem(s): Class 3 severe obesity due to excess calories without serious comorbidity with body mass index (BMI) of 40.0 to 44.9 in adult (CMS-HCC) Weight loss indicated. Associated Problem(s): Bilateral leg edema Edema stable and continue lasix. Elevate legs PRN. Images from the original note were not included. Subjective Patient ID: Luis Luis is a 74 y.o. male who presents for Follow-up (6M). Follow up HTN, SVT, pain, and edema. Checking BP PRN and typically controlled. BP okay today. Taking medication daily and tolerating without side effects. SVT stable. Occasional palpitations and heart racing but only lasts few seconds. Not lightheaded or dizzy. Recent ablation but still occasional racing. Following with cardiology and adjusting medication. Pain stable. Mild pain in back but no radicular symptoms. Right hip pain slightly better. Seen by pain management and had a few injections. Pain with walking and standing. Not ready for hip replacement. Edema controlled with medication. Mild swelling at end of day and if on feet a lot. Edema improved in am and with elevation. Review of Systems Constitutional: Negative for fatigue. [...] Items Addressed This Visit Essential hypertension, benign - Primary BP controlled and monitor PRN. Paroxysmal SVT (supraventricular tachycardia) (HCC) Occasional palpitations and follow with cardiology. Class 3 severe obesity due to excess calories without serious comorbidity with body mass index (BMI) of 40.0 to 44.9 in adult (CMS-HCC) Weight loss indicated. Bilateral leg edema Edema stable and continue lasix. Elevate legs PRN. Degeneration of intervertebral disc of lumbar region with discogenic back pain and lower extremity pain Pain stable and follow with pain management. Primary osteoarthritis of right hip Pain unchanged and follow with pain management. documented in this encounter [facility] 09-16-2024 History of Present illness Narrative Images from the original note were not included. Chief Complaint: Chief Complaint Patient presents with Follow-up 6 month Atrial fibrillation, unspecified type (Multi) Most recently seen by Cheryl ARGUETA September 06, 2024. I have reviewed her notes. Underwent SVT ablation by Dr. Temple 08/03/2024. During the ablation process he was noted to have hemodynamically unstable atrial tachycardia requiring electrical cardioversion x 2. The atrial tachycardia would terminate with atrial overdrive pacing. Atrial tachycardia was not mappable. It is reported that it was arising from the right inferior pulmonic vein. After pulmonary vein isolation the atrial tachycardia subsided. A as needed regimen of metoprolol tartrate 25 mg p.o. twice daily as needed for heart rates greater than 100 bpm lasting greater than 10 minutes duration was recommended. EKG at most recent office visit on 09/06/2024 was reported to show atrial tachycardia with wide QRS/right bundle branch block with a ventricular rate of 139 bpm Reports compliance with CPAP therapy Reports medication compliance The ER had recommended adding diltiazem CD1 80 mg to his regimen, patient does not have a prescription, and we will not be initiating a second AV marcia blocking agent at this time. Previously had bifascicular block, EKG today shows right bundle branch block normal [place] interval. Subjective : Review of Systems continues to have palpitations almost on a regular basis. His watch will alert him when his heart rate stays in excess of 100 for over 10 minutes. Recently seen by EP service, Cheryl Barron, I have reviewed her notes. Patient was prescribed metoprolol tartrate 25 mg p.o. twice daily to take in addition to the metoprolol succinate 50 mg that he takes regularly, for tachycardia lasting more than 10 minutes. He says he has been frequently taking the extra medication he notices that his heart rate is elevated almost on a regular basis, but at least 2 or 3 times a week it stays high for more than 10 minutes. During 1 of these episodes he got short of breath and presented to the emergency department at [facility], by the time he got there he had reverted back to sinus rhythm. Uses cane as ambulatory aid, has not had any falls or bleeding diathesis 12 point review of systems is negative or noncontributory except as noted History so Far : Obstructive sleep apnea syndrome Compliant with CPAP High risk medication use Propafenone initiated June 2021, propafenone was discontinued per EP service due to bifascicular block, at 06/07/2024 visit. November 2019 MPI no ischemia, no infarct [...] 6% Left atrium mildly dilated LVH moderate 07/14/2023 ECHO([facility]) 1. Global left ventricular systolic function is difficult to assess but appears preserved; visually estimated ejection fraction is 55 to 60% 2. The right ventricle is poorly seen; appears normal in size with reduced systolic function 3. Normal diastolic function 4. Valves are poorly seen; no obvious significant valvular abnormalities 5. Anterior free space; trivial effusion versus fat pad November 2019 MPI no ischemia, no infarct HLD (hyperlipidemia) Low intensity statin Reports he is due for annual labs April 2024 Hypertension Optimal in office Paroxysmal SVT (supraventricular tachycardia) ([facility]) Initial diagnosis August 2019 Has remained quiescent on propafenone since June 2021 EKG in office 06/07/24 : shows wide-complex tachycardia at 125 bpm, most consistent with atrial tachycardia or atrial flutter with variable AV conduction right bundle branch block is noted. Ventricular rate 120 bpm. May 2024: 14-day cardiac cath lab technologist Abnormal 14-day monitor with several bouts of atrial fibrillation/flutter intraventricular conduction delay ventricular rates ranging from 92 bpm to 142 bpm. Several of these were auto triggered. No bradycardia No malignant ventricular dysrhythmia No AV block Morbid obesity with BMI of 40.0-44.9, adult (Multi) Reviewed the merits of healthy lifestyle choices on overall cardiovascular health Objective Wt Readings from Last 3 Encounters: 09/16/24 144 kg (317 lb) 09/06/24 146 kg (321 lb) 08/03/24 143 kg (315 lb 4.1 oz) Vitals: 09/16/24 1053 BP: 108/80 BP Location: Left arm Patient Position: Sitting Pulse: 60 Weight: 144 kg (317 lb) Height: 1.88 m (6' 2 ) Physical Exam: GENERAL APPEARANCE: in no acute distress. CHEST: Symmetric and non-tender. INTEGUMENT: Skin warm and dry HEENT: No gross abnormalities identified.No pallor or scleral icterus. NECK: Supple, no JVD, no bruit. NEURO/PSHCY: Alert and oriented x3; appropriate behavior and responses and responses LUNGS: Clear to auscultation bilaterally; normal respiratory effort. HEART: Rate and rhythm regular with no evident murmur; no gallop appreciated. ABDOMEN: Soft, non tender. MUSCULOSKELETAL: No gross deformities. EXTREMITIES: Warm There is no edema noted. Meds: Current Outpatient Medications Medication Instructions atorvastatin (LIPITOR) 10 mg, oral, Nightly baclofen (Lioresal) 10 mg tablet 3 times daily dabigatran etexilate (PRADAXA) 150 mg, oral, 2 times daily, Do not crush or chew. furosemide (LASIX) 40 mg, Daily PRN glucosamine-chondroitin 500-400 mg tablet 1 tablet, 3 times daily magnesium oxide (Mag-Ox) 400 mg (241.3 mg elemental) tablet 1 tablet, oral, 2 times daily meloxicam (MOBIC) 15 mg, Daily metoprolol succinate XL (TOPROL-XL) 50 mg, oral, Daily, Do not crush or chew. metoprolol tartrate (LOPRESSOR) 25 mg, oral, 2 times daily PRN pantoprazole (PROTONIX) 40 mg, oral, 2 times daily before meals, For 6 weeks after ablation then discontinue potassium chloride CR 20 mEq ER tablet 20 mEq, Daily PRN sildenafil (VIAGRA) 100 mg, As needed tamsulosin (FLOMAX) 0.4 mg, Daily Allergies: Patient has no known allergies. LABS: Testing Reviewed Labs CBC: Lab Results Component Value Date WBC 6.7 08/03/2024 RBC 5.16 08/03/2024 HGB 15.9 08/03/2024 HCT 46.7 08/03/2024 PLT 182 08/03/2024 CMP: Lab Results Component Value Date NA 139 08/03/2024 K 3.9 08/03/2024 CL 107 08/03/2024 CO2 26 08/03/2024 BUN 16 08/03/2024 CREATININE 0.86 08/03/2024 GLUCOSE 90 08/03/2024 CALCIUM 9.1 08/03/2024 EKG in the ER showed normal sinus rhythm and right bundle branch block. Bifascicular block was not noted. Potassium level 3.8. Reviewed all available pertinent laboratory data and diagnostic testing results that occurred after the last office visit with me Assessment: 1. Paroxysmal SVT (supraventricular tachycardia) Follow Up In Cardiology magnesium oxide (Mag-Ox) 400 mg (241.3 mg elemental) tablet Follow Up In Cardiology 2. High risk medication use 3. 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 Palpitations 5. Primary hypertension 6. Unspecified right bundle-branch block 7. Mixed hyperlipidemia atorvastatin (Lipitor) 10 mg tablet 8. RENAE on CPAP 9. Former cigarette smoker 10. Morbid obesity with BMI of 40.0-44.9, adult (Multi) Clinical Decision Making: Persistent and frequent tachycardia with symptoms EKG today shows right bundle branch block, previously noted bifascicular block is no longer present. [place] interval is normal. I suggest magnesium oxide 400 mg p.o. twice daily Discussed with Dr. Temple. Will initiate amiodarone. Amiodarone 200 mg p.o. daily, decrease metoprolol succinate from 50 mg daily to 25 mg daily, EKG next week, Follow-up in office next week, at which time further discussions can be made. He can continue to use the metoprolol tartrate 25 mg p.o. twice daily as needed for palpitations associated with tachycardia lasting more than 10 minutes. Blood pressures at target Patient is compliant with CPAP therapy. Reviewed ER notes and laboratory data. Follow up : 1 week I,Jennie Winslow LPN am scribing for, and in the presence of Dr. Esther Mejía MD, [facility]. I, Dr. Esther Mejía MD, [facility], personally performed the services described in the documentation as scribed by Jennie Winslow LPN in my presence, and confirm it is both accurate and complete. documented in this encounter [facility] Work Phone: 09-16-2024 Instructions Jennie Swann LPN - 09/16/2024 10:30 AM EDT Please bring all medicines, vitamins, and herbal supplements with you when you come to the office. Prescriptions will not be filled unless you are compliant with your follow up appointments or have a follow up appointment scheduled as per instruction of your physician. Refills should be requested at the time of your visit. BMI was above normal measurement. Current weight: 144 kg (317 lb) Weight change since last visit (-) denotes wt loss -4 lbs Weight loss needed to achieve BMI 25: 122.7 Lbs Weight loss needed to achieve BMI 30: 83.8 Lbs Provided instructions on dietary changes. The following attachments cannot be sent through Care Everywhere.Heart Healthy Diet (Eritrean)documented in this encounter [facility] Work Phone: 09-06-2024 History of Present illness Narrative Electrophysiology Office Visit CHIEF COMPLAINT Chief Complaint Patient presents with Follow-up 4 week for SVT/aflutter ablation Primary EP doctor: Dr Temple Primary Electrolysis Engineer: Dr Mejía EP History: Atrial tachy/pSVT s/p Ablation (08/03/24), HTN, bifascicular block, RENAE, prostate CA 09/28/2019 Admit for CP, palpitations, diaphoresis. His apple watch showed rate of 210. Cardiology suspect SVT. Unremarkable cardiology workup. Cardiology suggests cardiac cath lab technologist. Lisinopril changed to Cardizem. 1 month FCO monitor showed pSVT and SR w/ atrial ectopy, occasional PVCs. 2021 He starts propafenone for break through SVT 06/06/[address] Mejía from Dr Santo. Patient was reporting that his heart rate was elevated on his Apple Watch, frequently giving alarms of 120s and 130s. Short runs of wide-complex tachycardia at 125 bpm. Possible Atrial flutter. 06/07/2024 NEW EP OV w/ Dr Temple for pSVT and 2:1 Atrial flutter w/ underlying bifascicular block, referred by Dr Mejía. He was maintained on propafenone but not good considering his bifascicular block. Stop propafenone. Stop diltiazem. Start metoprolol XL 50 mg daily and Pradaxa 150 mg twice daily (more cost effective). Pt will be scheduled for EP study and ablation. 08/03/2024 EP study w/ ABLATION of Atrial tachycardia. No inducible SVT Maintained on metoprolol succinate 50 mg daily, Pradaxa 150 mg BID HPI: 09/06/2024 74 year old male pmhx Atrial tachy/pSVT s/p Ablation (08/03/24), HTN, bifascicular block, RENAE, prostate CA. Maintained on metoprolol succinate 50 mg daily, Pradaxa 150 mg BID. He is here for 1 month follow-up status post EP study with ablation of atrial tachycardia with Dr. Temple on August 03 No inducible SVT. However, he did have frequent episodes of hemodynamically unstable atrial tachycardia requiring DCCVx 2. They would reliably terminate with atrial overdrive pacing. Due to hemodynamic instability, atrial tachycardia was unmappable. However, it was likely arising from the right inferior pulmonary vein. After pulmonary vein isolation, atrial tachycardia was no longer inducible. Today's EKG shows what appears to be an atrial tachycardia with a wide QRS/right bundle branch block. Ventricular rate 139 bpm. He is not on any antiarrhythmics. He is on metoprolol succinate 50 mg daily. He states that his heart rates have a large range. Today on his smart watch his rate has been between 59-159 bpm. He states his heart rate elevated when he had to walk to the office. Patient is not symptomatic with any shortness of breath lightheadedness or dizziness during this episode of rapid rate. He is agreeable to starting pill in the pocket metoprolol tartrate 25 mg twice daily as needed for rates greater than 100 bpm lasting greater than 10 minutes in duration. He may need cardioverted if he requires more than 2 doses of metoprolol tartrate. He has been told to call the office if this is the case. Today's EKG Interpretation: Possible atrial tachycardia with wide QRS/right bundle branch block, ventricular rate 139 bpm, QRS duration 148 ms, QTc 529 ms VITALS Vitals: 09/06/24 0957 BP: 122/74 Pulse: (!) 139 Wt Readings from Last 4 Encounters: 09/06/24 146 kg (321 lb) 08/03/24 143 kg (315 lb 4.1 oz) 06/07/24 146 kg (320 lb 12.8 oz) 06/06/24 148 kg (326 lb 12.8 oz) PHYSICAL EXAM: GENERAL: Well developed, well nourished, in no acute distress. NEURO/PSYCH: No focal deficits. A&O x 3 LUNGS: Clear to auscultation bilaterally. No wheezing, rhonci, or crackles HEART: Initially his EKG showed tachycardia however during auscultation it reverted to less than 100 bpm. No murmurs rubs or gallops EXTREMITIES: Warm with good color, no clubbing or cyanosis. No pitting edema. Medical History[1] Surgical History[2] Social History[3] Family History[4] RX Allergies[5] Current Outpatient Medications Medication Instructions atorvastatin (LIPITOR) 10 mg, oral, Nightly baclofen (Lioresal) 10 mg tablet 3 times daily dabigatran etexilate (PRADAXA) 150 mg, oral, 2 times daily, Do not crush or chew. furosemide (LASIX) 40 mg, Daily PRN glucosamine-chondroitin 500-400 mg tablet 1 tablet, 3 times daily meloxicam (MOBIC) 15 mg, Daily metoprolol succinate XL (TOPROL-XL) 50 mg, oral, Daily, Do not crush or chew. metoprolol tartrate (LOPRESSOR) 25 mg, oral, 2 times daily PRN pantoprazole (PROTONIX) 40 mg, oral, 2 times daily before meals, For 6 weeks after ablation then discontinue potassium chloride CR 20 mEq ER tablet 20 mEq, Daily PRN sildenafil (VIAGRA) 100 mg, As needed tamsulosin (FLOMAX) 0.4 mg, Daily Relevant reports: 07/14/2023 ECHO 1. Global left ventricular systolic function is difficult to assess but appears preserved; visually estimated ejection fraction is 55 to 60% 2. The right ventricle is poorly seen; appears normal in size with reduced systolic function 3. Normal diastolic function 4. Valves are poorly seen; no obvious significant valvular abnormalities 5. Anterior free space; trivial effusion versus fat pad 09/27/2019 ECHO Moderate concentric LVH EF 55-60% Left atrium appears mildly dilated 08/03/2024 EP study w/ ABLATION Successful pulmonary vein isolation by radiofrequency ablation with demonstrated entrance block and exit block. Successful cavotricuspid isthmus ablation (aka CTI line) via RF ablation with block across the CTI. Frequent episodes of hemodynamically unstable atrial tachycardia requiring DCCVx 2. Would reliably terminate with atrial overdrive pacing. Due to hemodynamic instability, atrial tachycardia was unmappable. However, it was likely arising from the right inferior pulmonary vein. After pulmonary vein isolation, atrial tachycardia was no longer inducible. EP study showed: - Decremental AV node conduction - No evidence for infrahisian disease pre- nor post-ablation - No accessory pathway - Dual AV marcia physiology without inducible SVT - No inducible SVT 11/29/2019 Nuclear Stress Test Normal. No ischemia or WA. EF 54%. 05/31/2024 Rehabilitation Services Coordinator x 14 days Abnormal 14-day monitor with several bouts of atrial fibrillation/flutter intraventricular conduction delay ventricular rates ranging from 92 bpm to 142 bpm. Several of these were auto triggered. No bradycardia No malignant ventricular dysrhythmia No AV block Problem List[6] ASSESSMENT AND PLAN Problem List Items Addressed This Visit Paroxysmal SVT (supraventricular tachycardia) Today on his smart watch his rate has been between 59-159 bpm. He states his heart rate elevated when he had to walk to the office. Patient is not symptomatic with any shortness of breath lightheadedness or dizziness during this episode of rapid rate. He is agreeable to starting pill in the pocket metoprolol tartrate 25 mg twice daily as needed for rates greater than 100 bpm lasting greater than 10 minutes in duration. He may need cardioverted if he requires more than 2 doses of metoprolol tartrate. He has been told to call the office if this is the case. He is scheduled for a 3-month post ablation Zio patch on 11/03/[address] Temple on 11/16/2024 Relevant Medications metoprolol tartrate (Lopressor) 25 mg tablet Other Relevant Orders ECG 12 lead (Clinic Performed) Atrial tachycardia - Primary Relevant Medications metoprolol tartrate (Lopressor) 25 mg tablet Chronic anticoagulation No bleeding complications with Pradaxa H/O cardiac radiofrequency ablation 08/03/2024 EP study w/ ABLATION Successful pulmonary vein isolation by radiofrequency ablation with demonstrated entrance block and exit block. Successful cavotricuspid isthmus ablation (aka CTI line) via RF ablation with block across the CTI. Frequent episodes of hemodynamically unstable atrial tachycardia requiring DCCVx 2. Would reliably terminate with atrial overdrive pacing. Due to hemodynamic instability, atrial tachycardia was unmappable. However, it was likely arising from the right inferior pulmonary vein. After pulmonary vein isolation, atrial tachycardia was no longer inducible. EP study showed: - Decremental AV node conduction - No evidence for infrahisian disease pre- nor post-ablation - No accessory pathway - Dual AV marcia physiology without inducible SVT - No inducible SVT Relevant Medications metoprolol tartrate (Lopressor) 25 mg tablet NINO Hoover, MEMO [1] Past Medical History: Diagnosis Date Arrhythmia Cancer (Multi) Heart murmur Hyperlipidemia Hypertension Sleep apnea [2] Past Surgical History: Procedure Laterality Date CARDIAC ELECTROPHYSIOLOGY PROCEDURE N/A 08/03/2024 Procedure: Ablation A-Fib; Surgeon: Mikaela Temple MD; Location: [facility]; Service: Electrophysiology; Laterality: N/A; do type and screen on admit/pt on pradaxa was told to continue am of COLONOSCOPY 2023 OTHER SURGICAL HISTORY 01/30/2021 Arm surgery OTHER SURGICAL HISTORY 01/30/2021 Complete colonoscopy [3] Social History Tobacco Use Smoking status: Former Current packs/day: 0.00 Average packs/day: 0.3 packs/day for 4.0 years (1.0 ttl pk-yrs) Types: Cigarettes Start date: 03/02/1971 Quit date: 03/02/1973 Years since quittin.5 Smokeless tobacco: Never Tobacco comments: Was an occasional smoker of a pipe. Vaping Use Vaping status: Never Used Substance Use Topics Alcohol use: Yes Alcohol/week: 6.0 standard drinks of alcohol Types: 2 Glasses of wine, 4 Cans of beer per week Comment: social Drug use: Never [4] Family History Problem Relation Name Age of Onset No Known Problems Mother Cassy Luis Arrhythmia Father Joel Luis Cancer Father Joel Luis Arrhythmia Brother Matt Luis Cancer Brother Matt Lusi Asthma Brother Matt Luis Arrhythmia Brother Steve Luis Cancer Brother Steve Luis Stroke Sister Omaira Collins Arrhythmia Father Joel Luis Cancer Father Joel Luis Arrhythmia Brother Matt Luis Cancer Brother Matt Luis Asthma Brother Matt Luis Arrhythmia Brother Steve Quezadaon Cancer Brother Steve Quezadaon Stroke Sister Omaira Collins [5] No Known Allergies [6] Patient Active Problem List Diagnosis HLD (hyperlipidemia) Hypertension Paroxysmal SVT (supraventricular tachycardia) Morbid obesity with BMI of 40.0-44.9, adult (Multi) Bifascicular block Malignant neoplasm of prostate (Multi) High risk medication use RENAE (obstructive sleep apnea) Former cigarette smoker Obesity Atrial tachycardia Chronic anticoagulation H/O cardiac radiofrequency ablation documented in this encounter [facility] Work Phone: 09-06-2024 Instructions Cheryl Bautista PA-C - 09/06/2024 10:00 AM EDT Great to see you today. Please take your medications and or do life style behavior modifications as discussed. Continue to take your 50 mg Metoprolol succinate daily. Use 25 mg Metoprolol tartrate twice daily as NEEDED if your heart rate is > 100 for more than 10 mins. If you notice you need your as needed medication more than twice daily, call office as you might need a cardioversion. Please call if you have any questions or concerns. Please go to emergency department if you have abrupt onset of chest, shortness of breath, light headedness or dizziness. documented in this encounter [facility] Work Phone: 08-03-2024 Nurse Note Patient returned from PACU to [place] [id number]. Drainage noted on right groin site dressing, area outlined for monitoring. Groin site remains soft with palpable pedal pulses. Patient is A&Ox4 and has no c/o at this time. VSS, tele monitor applied and external catheter hooked to suction. Patient to remain flat for 2 hours post procedure. Family at bedside and call light within reach. Will continue to monitor. [facility] Work Phone: 08-03-2024 Nurse Note Discharge instructions reviewed with patient and family. Discussed in depth post procedure restrictions, medications and follow up appointments. Questions and concerns addressed. Right groin site remains stable and unchanged. Plan to dc home. [facility] Work Phone: 08-03-2024 Nurse Note Patient returned from PACU to [place] [id number]. Drainage noted on right groin site dressing, area outlined for monitoring. Groin site remains soft with palpable pedal pulses. Patient is A&Ox4 and has no c/o at this time. VSS, tele monitor applied and external catheter hooked to suction. Patient to remain flat for 2 hours post procedure. Family at bedside and call light within reach. Will continue to monitor. Discharge instructions reviewed with patient and family. Discussed in depth post procedure restrictions, medications and follow up appointments. Questions and concerns addressed. Right groin site remains stable and unchanged. Plan to dc home. documented in this encounter [facility] Work Phone: 08-03-2024 Nurse Surgical operation note Left radial josh discontinued. Manual pressure held 10 min for hemostasis. [facility] 08-03-2024 Miscellaneous Notes Left radial josh discontinued. Manual pressure held 10 min for hemostasis. documented in this encounter [facility] Work Phone: 08-03-2024 Hospital Discharge instructions Teresa Hobbs, TRANSPORT AIDE-TRANSCRIPTION - 08/03/2024 3:40 PM EDT Images from the original note were not included. INSTRUCTIONS AFTER ATRIAL FIBRILLATION ABLATION PROCEDURE: After the procedure: You should return home and rest for the remainder of the day and evening. DO NOT drive a car, operate machinery or power tools. It is recommended a responsible adult be with you for the first 24 hours after the procedure. DO NOT make any legal decisions for 24 hours after your procedure. DO NOT drink any alcoholic drinks or take any non-prescriptive medications that contain alcohol for the first 24 hours. What to expect: Some minor bruising is common at each groin access site with minor soreness as if you had banged the area. Bruising may occasionally be seen to extend down the leg. This is normal as is an occasional small quarter sized bump in the area. If larger swelling or more significant pain occurs at the area, please contact the office or go the nearest Emergency Room. You may have some minor chest pain for the next week or so. The pain will often worsen with a deep breath and be better when leaning forward. This is pericardial chest pain from the ablation and is generally not of concern. It should resolve within a week although it might increase for a day or so after the ablation. Low grade fevers of around 99 degrees are common in the first day or so post-ablation. If you develop unexplained fevers exceeding 100 degrees anytime within the first 3 weeks post-ablation, you need to contact the office. Atrial fibrillation (AFib) can recur in all patients who undergo this ablation for up to 4-8 weeks post-ablation. The ablation itself can cause inflammation (pericarditis) in the atria and this can cause AFib. Some patients will actually experience an increased amount of atrial arrhythmia early after ablation. Approximately 1/3 of patients will have this early recurrence of AFib. Medications should be continued and your heart rate controlled. Nothing else needs be done initially except waiting as in many cases these episodes of AFib will prove self limited. Important Medication Instructions: You will need to continue blood thinner (warfarin, Pradaxa, Xarelto or Eliquis) until instructed otherwise. It is important not to interrupt blood thinner for any reason (other than an emergency) during the first 30 days after ablation. You will be on Pantoprazole (a heartburn medicine) or related medicine for 6 weeks to protect the esophagus as it can become irritated with ablation. It is very important that you take this medication. All other medications will generally remain the same unless you are told otherwise. Resume taking your home medications today (including blood thinner) as listed on the discharge instructions. Activity and Other Restrictions: In the first week post-ablation you should take it easy. No heavy lifting or heavy exercise, no treadmill. You can use the stairs if needed but go slowly and minimize the number of times up and down. Avoid heavy lifting (over 10 pounds), strenuous activity/exercise, squatting or excessive bending for 7 days. This allows for proper healing of the groin. Avoid sexual activity for 24 hours after you arrive home. No driving for 48 hours after procedure. Call 911 if: Severe dizziness, lightheadedness, or feeling faint Severe chest pain Change in mental status or weakness in extremities. If there is a large amount of bleeding or spurting of blood. DO NOT drive yourself to the hospital. Notify Provider if: Breathing faster than normal. Fever of 100.4 F (38 C) or higher or chills. If you develop a large area of bruising or a large lump. It is normal to notice a small bruise around the puncture site and/or a small lump. If groin pain is not relieved with acetaminophen (Tylenol). If you develop tingling, numbness, pain, or coolness in the leg/arm beyond the site where the procedure was performed. If post procedure chest discomfort unrelieved with acetaminophen (Tylenol) Any new concerning symptoms Wound Care: The transparent dressing should be removed from the site 24 hours after the procedure. It is ok to shower after transparent dressing is removed. Gently cleanse the puncture site in your groin with soap and water only. No tub baths, soaking, hot tubs, or swimming for one week. If slight bleeding should occur at groin site, lie down and have someone apply firm pressure just above the puncture site for 15 minutes. If there is a large amount of bleeding or spurting of blood, DO NOT drive yourself to the hospital. Always notify your doctor if bleeding occurs. Keep site clean and dry. Let air dry or pat dry. You may use a simple bandaid. You may experience some tenderness, bruising or minimal inflammation. You may take acetaminophen (Tylenol) as directed for discomfort. If you have any concerns, you may contact Dr. Temple. Avoid lotions, ointments, or powders until fully healed. Follow-up Appointments You will be scheduled for a follow up appointment with your provider in 3-4 months. A heart monitor may be ordered prior to your provider appointment if indicated. Any necessary appointments will be scheduled and appear on your After Visit Summary. Other Instructions: If you need to speak with Dr. Temple for any reason, please call [phone] during business hours. For urgent questions after normal business hours, please call and ask for Cardiac Electrophysiology coverage for Dr. Temple to be paged. For medical emergencies, please call [phone]. documented in this encounter [facility] Work Phone: 08-03-2024 History and physical note History Of Present Illness Luis Luis is a 74 y.o. male past medical history significant for paroxysmal atrial flutter/tachycardia SVT, currently maintained on metoprolol succinate 50 mg daily and anticoagulated with Pradaxa 150 mg twice daily, bifascicular block, HTN, HLD, obstructive sleep apnea, morbid obesity and was recently referred to machine mover, Dr. Temple by Dr. Mejía for further management of tachyarrhythmia. Patient has had paroxysmal SVT since 2019. He has been managed by Dr. Santo and has been maintained on propafenone. Patient has been experiencing more persistent elevations in heart rate from the 120s to 150s causing him to feel lightheaded as well as chest tightness and increased lower extremity edema. ECG in the office on 06/07/2024 revealed 2-1 atrial flutter versus atrial tachycardia with a bifascicular block and heart rate of 120. Recent event monitor also revealed 100% atrial tachycardia versus atrial flutter. Patient was taken off his propafenone and subsequently initiated on metoprolol succinate as well as anticoagulation with a [id number] score of 2. It was recommended he undergo future A-flutter/SVT ablation. Patient is a [facility] today for this procedure under the care of Dr. Temple. Past Medical History Medical History[1] Surgical History Surgical History[2] Social History Remote tobacco use Occasional alcohol use Denies drug use Family History Family History[3] Allergies Patient has no known allergies. Review of Systems Constitutional: Positive for fatigue. HENT: Negative. Eyes: Negative. Respiratory: Positive for chest tightness. Negative for shortness of breath. Cardiovascular: Positive for palpitations and leg swelling. Gastrointestinal: Negative. Endocrine: Negative. Genitourinary: Negative. Skin: Negative. Allergic/Immunologic: Negative. Neurological: Negative. Negative for dizziness and light-headedness. Psychiatric/Behavioral: Negative. All other systems reviewed and are negative. Physical Exam Vitals reviewed. Constitutional: Appearance: Normal appearance. He is obese. HENT: Head: Normocephalic and atraumatic. Nose: Nose normal. Mouth/Throat: Mouth: Mucous membranes are moist. Pharynx: Oropharynx is clear. Eyes: Pupils: Pupils are equal, round, and reactive to light. Cardiovascular: Rate and Rhythm: Normal rate and regular rhythm. Pulses: Normal pulses. Heart sounds: Normal heart sounds. Pulmonary: Effort: Pulmonary effort is normal. Breath sounds: Normal breath sounds. Abdominal: General: Bowel sounds are normal. Palpations: Abdomen is soft. Musculoskeletal: General: Normal range of motion. Cervical back: Normal range of motion and neck supple. Right lower leg: Edema present. Left lower leg: Edema present. Skin: General: Skin is warm and dry. Neurological: General: No focal deficit present. Mental Status: He is alert and oriented to person, place, and time. Psychiatric: Mood and Affect: Mood normal. Behavior: Behavior normal. Last Recorded Vitals Blood pressure 138/76, pulse 65, temperature 36.7 C (98.1 F), temperature source Temporal, resp. rate 16, height 1.88 m (6' 2 ), weight 143 kg (315 lb 4.1 oz), SpO2 95%. Relevant Results Results for orders placed or performed during the hospital encounter of 08/03/24 (from the past 24 hours) Comprehensive Metabolic Panel Result Value Ref Range Glucose 90 74 - 99 mg/dL Sodium 139 136 - 145 mmol/L Potassium 3.9 3.5 - 5.3 mmol/L Chloride 107 98 - 107 mmol/L Bicarbonate 26 21 - 32 mmol/L Anion Gap 10 10 - 20 mmol/L Urea Nitrogen 16 6 - 23 mg/dL Creatinine 0.86 0.50 - 1.30 mg/dL eGFR >90 >60 mL/min/1.73m*2 Calcium 9.1 8.6 - 10.3 mg/dL Albumin 4.3 3.4 - 5.0 g/dL Alkaline Phosphatase 53 33 - 136 U/L Total Protein 6.8 6.4 - 8.2 g/dL AST 16 9 - 39 U/L Bilirubin, Total 0.9 0.0 - 1.2 mg/dL ALT 27 10 - 52 U/L CBC and Auto Differential Result Value Ref Range WBC 6.7 4.4 - 11.3 x10*3/uL nRBC 0.0 0.0 - 0.0 /100 WBCs RBC 5.16 4.50 - 5.90 x10*6/uL Hemoglobin 15.9 13.5 - 17.5 g/dL Hematocrit 46.7 41.0 - 52.0 % MCV 91 80 - 100 fL MCH 30.8 26.0 - 34.0 pg MCHC 34.0 32.0 - 36.0 g/dL RDW 13.3 11.5 - 14.5 % Platelets 182 150 - 450 x10*3/uL Neutrophils % 59.1 40.0 - 80.0 % Immature Granulocytes %, Automated 0.1 0.0 - 0.9 % Lymphocytes % 31.1 13.0 - 44.0 % Monocytes % 7.4 2.0 - 10.0 % Eosinophils % 1.3 0.0 - 6.0 % Basophils % 1.0 0.0 - 2.0 % Neutrophils Absolute 3.97 1.60 - 5.50 x10*3/uL Immature Granulocytes Absolute, Automated 0.01 0.00 - 0.50 x10*3/uL Lymphocytes Absolute 2.09 0.80 - 3.00 x10*3/uL Monocytes Absolute 0.50 0.05 - 0.80 x10*3/uL Eosinophils Absolute 0.09 0.00 - 0.40 x10*3/uL Basophils Absolute 0.07 0.00 - 0.10 x10*3/uL Coagulation Screen Result Value Ref Range Protime 11.9 9.8 - 12.4 seconds INR 1.1 0.9 - 1.1 aPTT 43 (H) 26 - 36 seconds ECG 12 lead STAT Result Value Ref Range Ventricular Rate 70 BPM Atrial Rate 70 BPM [place] Interval 188 ms QRS Duration 158 ms QT Interval 450 ms QTC Calculation(Bazett) 486 ms P [employer] 48 degrees R [employer] 59 degrees T [employer] 16 degrees QRS Count 11 beats Q Onset 219 ms P Onset 125 ms P Offset 187 ms T Offset 444 ms QTC Fredericia 474 ms Assessment/Plan Persistent atrial flutter/atrial tachycardia/SVT - Currently maintained on metoprolol succinate 50 mg daily and anticoagulated with Pradaxa 150 mg twice daily. - Plan for a flutter/SVT ablation today under the care of Dr. Temple 2. Bifascicular block 3. Benign essential hypertension -stable 4. Obstructive sleep apnea 5. Morbid obesity -BMI 41.2 Further recommendations pending procedure results. I spent 75 minutes in the professional and overall care of this patient. GENA Hinkle [1] Past Medical History: Diagnosis Date Arrhythmia Cancer (Multi) Hyperlipidemia Hypertension [2] Past Surgical History: Procedure Laterality Date COLONOSCOPY 2023 OTHER SURGICAL HISTORY 01/30/2021 Arm surgery OTHER SURGICAL HISTORY 01/30/2021 Complete colonoscopy [3] Family History Problem Relation Name Age of Onset No Known Problems Mother [facility] Work Phone: 08-03-2024 History and physical note History Of Present Illness Luis Luis is a 74 y.o. male past medical history significant for paroxysmal atrial flutter/tachycardia SVT, currently maintained on metoprolol succinate 50 mg daily and anticoagulated with Pradaxa 150 mg twice daily, bifascicular block, HTN, HLD, obstructive sleep apnea, morbid obesity and was recently referred to machine mover, Dr. Temple by Dr. Mejía for further management of tachyarrhythmia. Patient has had paroxysmal SVT since 2019. He has been managed by Dr. Santo and has been maintained on propafenone. Patient has been experiencing more persistent elevations in heart rate from the 120s to 150s causing him to feel lightheaded as well as chest tightness and increased lower extremity edema. ECG in the office on 06/07/2024 revealed 2-1 atrial flutter versus atrial tachycardia with a bifascicular block and heart rate of 120. Recent event monitor also revealed 100% atrial tachycardia versus atrial flutter. Patient was taken off his propafenone and subsequently initiated on metoprolol succinate as well as anticoagulation with a [id number] score of 2. It was recommended he undergo future A-flutter/SVT ablation. Patient is a [facility] today for this procedure under the care of Dr. Temple. Past Medical History Medical History[1] Surgical History Surgical History[2] Social History Remote tobacco use Occasional alcohol use Denies drug use Family History Family History[3] Allergies Patient has no known allergies. Review of Systems Constitutional: Positive for fatigue. HENT: Negative. Eyes: Negative. Respiratory: Positive for chest tightness. Negative for shortness of breath. Cardiovascular: Positive for palpitations and leg swelling. Gastrointestinal: Negative. Endocrine: Negative. Genitourinary: Negative. Skin: Negative. Allergic/Immunologic: Negative. Neurological: Negative. Negative for dizziness and light-headedness. Psychiatric/Behavioral: Negative. All other systems reviewed and are negative. Physical Exam Vitals reviewed. Constitutional: Appearance: Normal appearance. He is obese. HENT: Head: Normocephalic and atraumatic. Nose: Nose normal. Mouth/Throat: Mouth: Mucous membranes are moist. Pharynx: Oropharynx is clear. Eyes: Pupils: Pupils are equal, round, and reactive to light. Cardiovascular: Rate and Rhythm: Normal rate and regular rhythm. Pulses: Normal pulses. Heart sounds: Normal heart sounds. Pulmonary: Effort: Pulmonary effort is normal. Breath sounds: Normal breath sounds. Abdominal: General: Bowel sounds are normal. Palpations: Abdomen is soft. Musculoskeletal: General: Normal range of motion. Cervical back: Normal range of motion and neck supple. Right lower leg: Edema present. Left lower leg: Edema present. Skin: General: Skin is warm and dry. Neurological: General: No focal deficit present. Mental Status: He is alert and oriented to person, place, and time. Psychiatric: Mood and Affect: Mood normal. Behavior: Behavior normal. Last Recorded Vitals Blood pressure 138/76, pulse 65, temperature 36.7 C (98.1 F), temperature source Temporal, resp. rate 16, height 1.88 m (6' 2 ), weight 143 kg (315 lb 4.1 oz), SpO2 95%. Relevant Results Results for orders placed or performed during the hospital encounter of 08/03/24 (from the past 24 hours) Comprehensive Metabolic Panel Result Value Ref Range Glucose 90 74 - 99 mg/dL Sodium 139 136 - 145 mmol/L Potassium 3.9 3.5 - 5.3 mmol/L Chloride 107 98 - 107 mmol/L Bicarbonate 26 21 - 32 mmol/L Anion Gap 10 10 - 20 mmol/L Urea Nitrogen 16 6 - 23 mg/dL Creatinine 0.86 0.50 - 1.30 mg/dL eGFR >90 >60 mL/min/1.73m*2 Calcium 9.1 8.6 - 10.3 mg/dL Albumin 4.3 3.4 - 5.0 g/dL Alkaline Phosphatase 53 33 - 136 U/L Total Protein 6.8 6.4 - 8.2 g/dL AST 16 9 - 39 U/L Bilirubin, Total 0.9 0.0 - 1.2 mg/dL ALT 27 10 - 52 U/L CBC and Auto Differential Result Value Ref Range WBC 6.7 4.4 - 11.3 x10*3/uL nRBC 0.0 0.0 - 0.0 /100 WBCs RBC 5.16 4.50 - 5.90 x10*6/uL Hemoglobin 15.9 13.5 - 17.5 g/dL Hematocrit 46.7 41.0 - 52.0 % MCV 91 80 - 100 fL MCH 30.8 26.0 - 34.0 pg MCHC 34.0 32.0 - 36.0 g/dL RDW 13.3 11.5 - 14.5 % Platelets 182 150 - 450 x10*3/uL Neutrophils % 59.1 40.0 - 80.0 % Immature Granulocytes %, Automated 0.1 0.0 - 0.9 % Lymphocytes % 31.1 13.0 - 44.0 % Monocytes % 7.4 2.0 - 10.0 % Eosinophils % 1.3 0.0 - 6.0 % Basophils % 1.0 0.0 - 2.0 % Neutrophils Absolute 3.97 1.60 - 5.50 x10*3/uL Immature Granulocytes Absolute, Automated 0.01 0.00 - 0.50 x10*3/uL Lymphocytes Absolute 2.09 0.80 - 3.00 x10*3/uL Monocytes Absolute 0.50 0.05 - 0.80 x10*3/uL Eosinophils Absolute 0.09 0.00 - 0.40 x10*3/uL Basophils Absolute 0.07 0.00 - 0.10 x10*3/uL Coagulation Screen Result Value Ref Range Protime 11.9 9.8 - 12.4 seconds INR 1.1 0.9 - 1.1 aPTT 43 (H) 26 - 36 seconds ECG 12 lead STAT Result Value Ref Range Ventricular Rate 70 BPM Atrial Rate 70 BPM WY Interval 188 ms QRS Duration 158 ms QT Interval 450 ms QTC Calculation(Bazett) 486 ms P [employer] 48 degrees R [employer] 59 degrees T [employer] 16 degrees QRS Count 11 beats Q Onset 219 ms P Onset 125 ms P Offset 187 ms T Offset 444 ms QTC Fredericia 474 ms Assessment/Plan Persistent atrial flutter/atrial tachycardia/SVT - Currently maintained on metoprolol succinate 50 mg daily and anticoagulated with Pradaxa 150 mg twice daily. - Plan for a flutter/SVT ablation today under the care of Dr. Temple 2. Bifascicular block 3. Benign essential hypertension -stable 4. Obstructive sleep apnea 5. Morbid obesity -BMI 41.2 Further recommendations pending procedure results. I spent 75 minutes in the professional and overall care of this patient. Teresa Fritz, TRANSPORT AIDE-TRANSCRIPTION [1] Past Medical History: Diagnosis Date Arrhythmia Cancer (Multi) Hyperlipidemia Hypertension [2] Past Surgical History: Procedure Laterality Date COLONOSCOPY 2023 OTHER SURGICAL HISTORY 01/30/2021 Arm surgery OTHER SURGICAL HISTORY 01/30/2021 Complete colonoscopy [3] Family History Problem Relation Name Age of Onset No Known Problems Mother documented in this encounter [facility] Work Phone: 06-13-2024 Note This procedure was n ot performed. Procedure: DCC Reason: Pt in NSR CPACS 06-13-2024 Note This procedure was n ot performed. Procedure: ANGELICA Reason: Pt in NSR SYNGO_SECTRA 06-13-2024 Nurse Note Admission EKG shows patient in NSR. EKG shown to Vish Fritz CNP, ANGELICA Cancelled. Teresa Fritz CNP here speaking with patient and . Patient to be scheduled for Ablation on June. Patient discharged. [facility] Work Phone: 06-13-2024 Nurse Note Admission EKG shows patient in NSR. EKG shown to Vish Fritz CNP, ANGELICA Cancelled. Teresa Fritz CNP here speaking with patient and . Patient to be scheduled for Ablation on June. Patient discharged. Teresa Hobbs CNP here speaking with patient and about Ablation. Verbal information about ablation given to patient and . Patient and were able to ask questions about up coming ablation and get their questions answered by Teresa to their satisfaction. Teresa also informed them that they would also be able to go over this information with Dr. Temple in office. documented in this encounter [facility] Work Phone: 06-13-2024 Nurse Note Teresa Hobbs CNP here speaking with patient and about Ablation. Verbal information about ablation given to patient and . Patient and were able to ask questions about up coming ablation and get their questions answered by Teresa to their satisfaction. Teresa also informed them that they would also be able to go over this information with Dr. Temple in office. [facility] Work Phone: 06-07-2024 History of Present illness Narrative Images from the original note were not included. Referring Provider: Esther Mejía MD Reason for Consult: Tachycardia History of Present Illness: Luis Luis is a 73 y.o. year old male patient with a history significant for paroxysmal supraventricular tachycardia, hypertension, bifascicular block, morbid obesity, who is referred by Dr. Mejía for tachycardia. He has had paroxysmal SVT for many years since 2019. He has been managed by Dr. Santo and has been maintained on propafenone. Since 2021, he has worn an Apple Watch at all times and has noted intermittent episodes of rapid heart rates. However, more recently, he has been lightheaded and has had more persistent elevations in his heart rates in the 120s to 150s range. Along with these elevated heart rates over the past month, he has noted lightheadedness and some chest discomfort. He has also had increased lower extremity edema. Denies any syncope, dyspnea on exertion, or other cardiac symptoms. Focused Cardiovascular Problem List: Paroxysmal supraventricular tachycardia Hypertension Bifascicular block Morbid obesity Past Medical and Surgical History: Mr. Luis has no past medical history on file. has a past surgical history that includes Other surgical history (01/30/2021); Other surgical history (01/30/2021); and Colonoscopy (2023). Social History: Social History Tobacco Use Smoking status: Former Current packs/day: 0.00 Types: Cigarettes Quit date: 1970 Years since quittin.3 Smokeless tobacco: Not on file Substance Use Topics Alcohol use: Yes Comment: social Tobacco: Denies Alcohol: Social Drug use: Denies Relevant Family History: Family History Problem Relation Name Age of Onset No Known Problems Mother Allergies: No Known Allergies Medications: Current Outpatient Medications Medication Instructions atorvastatin (LIPITOR) 10 mg, oral, Nightly baclofen (Lioresal) 10 mg tablet 3 times daily dabigatran etexilate (PRADAXA) 150 mg, oral, 2 times daily, Do not crush or chew. furosemide (LASIX) 40 mg, Daily PRN glucosamine-chondroitin 500-400 mg tablet 1 tablet, 3 times daily meloxicam (MOBIC) 15 mg, Daily metoprolol succinate XL (TOPROL-XL) 50 mg, oral, Daily, Do not crush or chew. potassium chloride CR 20 mEq ER tablet 20 mEq, Daily PRN sildenafil (VIAGRA) 100 mg, As needed tamsulosin (FLOMAX) 0.4 mg, Daily Objective Physical Exam: Last Recorded Vitals: 02/15/2021 1:46 PM 08/12/2021 10:15 AM 02/11/2022 11:05 AM 02/10/2023 11:10 AM 03/08/2024 8:56 AM 06/06/2024 1:29 PM 06/07/2024 10:14 AM Vitals Systolic 118 130 132 132 136 118 118 Diastolic 80 80 78 84 80 82 70 BP Location Left arm Left arm Left arm Left arm Heart Rate 72 69 73 67 68 125 120 Height 1.88 m (6' 2 ) 1.88 m (6' 2 ) 1.88 m (6' 2 ) 1.88 m (6' 2 ) 1.88 m (6' 2 ) 1.88 m (6' 2 ) 1.88 m (6' 2 ) Weight (lb) 309 311 316 324 320 326.8 320.8 BMI 39.67 kg/m2 39.93 kg/m2 40.57 kg/m2 41.6 kg/m2 41.09 kg/m2 41.96 kg/m2 41.19 kg/m2 BSA (m2) 2.7 m2 2.71 m2 2.73 m2 2.77 m2 2.75 m2 2.78 m2 2.76 m2 Visit Report Report Report Report Report Visit Vitals BP 118/70 (BP Location: Left arm, Patient Position: Sitting) Pulse (!) 120 Ht 1.88 m (6' 2 ) Wt 146 kg (320 lb 12.8 oz) BMI 41.19 kg/m Smoking Status Former BSA 2.76 m Gen: NAD, sitting comfortably HEENT: NC/AT Card: Tachycardic, regular rate Pulm: Clear to auscultation bilaterally Ext: No LE edema Neuro: No focal deficits Diagnostic Results My Independent nterpretation of Reviewed Study(s): Prior ECGs (reviewed and my interpretation): 06/07/2024: 2 to 1 atrial flutter versus atrial tachycardia, bifascicular block, heart rate 120 bpm Cardiac Rhythm Monitors: 06/01/2024: Event monitor showing 100% atrial tachycardia versus flutter burden Echocardiography: 07/2023: LVEF 55 to 60%, RV normal size with reduced systolic function, no significant valvular abnormalities Relevant Labs: No results found for: CREATININE , CCL , K , HGBA1C , HGB , INR , AST , ALT Assessment/Plan Assessment and Plan: Luis Luis is a 73 y.o. year old male patient who is referred for management and evaluation of tachycardia. He has a prior history of SVT and bifascicular block which has been managed with propafenone. Based on review of ECG, the most likely explanation is this is due to 2-1 atrial flutter or atrial tachycardia. Given his underlying bifascicular block, propafenone is not a good long-term medication for him. I have discontinued this medication. For the new onset atrial flutter, given his [id number] score of 2, I have initiated him on anticoagulation. Apixaban and Xarelto are both very expensive, so I started him on Pradaxa 150 mg twice daily. Will arrange for a ANGELICA cardioversion. Long-term, ablation would be the best option to get rid of his atrial flutter and possibly also address the supraventricular tachycardia. # 2 1 atrial flutter -ANGELICA cardioversion next week -Stop propafenone - Stop diltiazem - Start metoprolol XL 50 mg daily - Start Pradaxa 150 mg twice daily - After cardioversion, we will plan for ablation versus initiation of antiarrhythmic therapy (dronedarone). Avoid class Ic agents given underlying bifascicular block. Return to Clinic: After ablation Thank you very much for allowing me to participate in the care of this patient. Please do not hesitate to contact me with any further questions or concerns. Mikaela Temple MD Clinical Cardiac Food Stylist, [facility] [place] [employer] Sorterpastry artist, [facility] [employer] Director of Atrial Fibrillation Ablation, [facility] Offbearer of Ventricular Arrhythmias Research, [facility] Office documented in this encounter [facility] Work Phone: 06-06-2024 History of Present illness Narrative Images from the original note were not included. Chief Complaint: Chief Complaint Patient presents with Follow-up Follow up for irregular heartbeat New to this provider. Saw Dr. Santo and then Mary Tam NP notes were reviewed. Last office visit 03/08/2024. History of PSVT and high risk medication use. Patient was reporting that his heart rate was elevated on his Apple Watch, frequently giving alarms of 120s and 130s. Accented monitor Short runs of wide-complex tachycardia at 125 bpm, on the rhythm strips I could not figure out if this was atrial flutter, did not look like atrial flutter, patient was advised to come in for a sooner appointment Subjective : Review of Systems shortness of breath and decreased exercise tolerance Frequent alerts from Apple Watch that heart rates are elevated Patient's heart rate has been in the 120s and 130s for the past several days No chest pressure tightness or heaviness no lightheadedness presyncope or syncope no TIA or CVA type symptoms Currently wearing a 2-week extended monitor. History so Far : Obstructive sleep apnea syndrome Compliant with CPAP High risk medication use Propafenone initiated June MPI no ischemia, no infarct August 2019 TTE LVEF 55 to 60% Cardiac and Vasculature Patient originally seen in cardiology consult August 2019 presented to hospital with heart rate greater than 200 bpm. [facility] revealed SVT and was maintained on Cardizem [...] propafenone since June 2021 EKG in office today shows wide-complex tachycardia at 125 bpm, most consistent with atrial tachycardia or atrial flutter with variable AV conduction right bundle branch block is noted. Bifascicular block: EKG 03/08/2024 with right bundle branch block and left anterior fascicular block QRS duration 172 ms Morbid obesity with BMI of 40.0-44.9, adult (Multi) Reviewed the merits of healthy lifestyle choices on overall cardiovascular health. Objective Wt Readings from Last 3 Encounters: 06/06/24 148 kg (326 lb 12.8 oz) 03/08/24 145 kg (320 lb) 02/10/23 147 kg (324 lb) Vitals: 06/06/24 1329 BP: 118/82 BP Location: Left arm Patient Position: Sitting Pulse: (!) 125 Weight: 148 kg (326 lb 12.8 oz) Height: 1.88 m (6' 2 ) Physical Exam: GENERAL APPEARANCE: in no acute distress. CHEST: Symmetric and non-tender. INTEGUMENT: Skin warm and dry HEENT: No gross abnormalities identified.No pallor or scleral icterus. NECK: Supple, no JVD, no bruit. NEURO/PSHCY: Alert and oriented x3; appropriate behavior and responses and responses LUNGS: Clear to auscultation bilaterally; normal respiratory effort. HEART: Rate and rhythm regular, tachycardic with no evident murmur; no gallop appreciated. ABDOMEN: Soft, non tender. MUSCULOSKELETAL: No gross deformities. EXTREMITIES: Warm There is no edema noted. Meds: Current Outpatient Medications Medication Instructions atorvastatin (LIPITOR) 10 mg, oral, Nightly baclofen (Lioresal) 10 mg tablet 3 times daily dilTIAZem CD (CARDIZEM CD) 180 mg, oral, Daily before breakfast furosemide (LASIX) 40 mg, Daily PRN glucosamine-chondroitin 500-400 mg tablet 1 tablet, 3 times daily meloxicam (MOBIC) 15 mg, Daily potassium chloride CR 20 mEq ER tablet 20 mEq, Daily PRN propafenone (RYTHMOL) 150 mg, oral, 3 times daily tamsulosin (FLOMAX) 0.4 mg, Daily No Known Allergies LABS: No recent laboratory data available. Reviewed all available pertinent laboratory data and diagnostic testing results that occurred after the last office visit with me Assessment: 1. Bifascicular block 2. Paroxysmal SVT (supraventricular tachycardia) (CMS-HCC) 3. High risk medication use 4. Obstructive sleep apnea syndrome 5. Morbid obesity with BMI of 40.0-44.9, adult (Multi) 6. Former cigarette smoker Clinical Decision Making: Patient has been tachycardic for several weeks now. Most likely this is atrial flutter with variable AV conduction [id number] score is 2. Patient is best served initially with electrical cardioversion. Patient will need transesophageal echocardiogram prior to cardioversion. Procedure of ANGELICA and cardioversion was reviewed, risks discussed included but were not limited to minor throat irritation minor bleeding and in rare instances of esophageal perforation ANGELICA, precipitation of bradycardia dysrhythmia or malignant dysrhythmia with cardioversion was also discussed. Subsequently patient will benefit from ablation of atrial flutter. Personally discussed with EP service Dr. Temple, patient is being added to Dr. Temple's office tomorrow Patient understands that if he gets lightheaded or presyncopal he needs emergent medical attention. Will start aspirin 81 mg daily. Follow up :As previously scheduled 09/05/2024. Subsequently located a basic metabolic profile from a week ago, sodium was 142 potassium 4.5 BUN 19 creatinine 1.07 GFR greater than 60 IMarisol LPN am scribing for, and in the presence of Dr. Esther Mejía MD, FACC. I, Dr. Esther Mejía MD, FACC, personally performed the services described in the documentation as scribed by Marisol Ovalles LPN in my presence, and confirm it is both accurate and complete. documented in this encounter [facility] Work Phone: 06-06-2024 Instructions Marisol Bravo LPN - 06/06/2024 1:15 PM EDT Please bring all medicines, vitamins, and herbal supplements with you when you come to the office. Prescriptions will not be filled unless you are compliant with your follow up appointments or have a follow up appointment scheduled as per instruction of your physician. Refills should be requested at the time of your visit. BMI was above normal measurement. Current weight: 148 kg (326 lb 12.8 oz) Weight change since last visit (-) denotes wt loss 6.8 lbs Weight loss needed to achieve BMI 25: 132.5 Lbs Weight loss needed to achieve BMI 30: 93.6 Lbs Provided instructions on dietary changes Provided instructions on exercise. documented in this encounter [facility] Work Phone: 05-16-2024 Note Patient Education Urology Erectile Dysfunction Erectile dysfunction (ED) is the inability to get or keep an erection in order to have sexual intercourse. ED is considered a symptom of an underlying disorder and is not considered a disease. ED may include: ??? Inability to get an erection. ??? Lack of enough hardness of the erection to allow penetration. ??? Loss of erection before sex is finished. What are the causes? This condition may be caused by: ??? Physical causes, such as: ? Artery problems. This may include heart disease, high blood pressure, atherosclerosis, and diabetes. ? Hormonal problems, such as low testosterone. ? Obesity. ? Nerve problems. This may include back or pelvic injuries, multiple sclerosis, Parkinson's disease, spinal cord injury, and stroke. ??? Certain medicines, such as: ? Pain relievers. ? Antidepressants. ? Blood pressure medicines and water pills (diuretics). ? Cancer medicines. ? Antihistamines. ? Muscle relaxants. ??? Lifestyle factors, such as: ? Use of drugs such as marijuana, cocaine, or opioids. ? Excessive use of alcohol. ? Smoking. ? Lack of physical activity or exercise. ??? Psychological causes, such as: ? Anxiety or stress. ? Sadness or depression. ? Exhaustion. ? Fear about sexual performance. ? Guilt. What are the signs or symptoms? Symptoms of this condition include: ??? Inability to get an erection. ??? Lack of enough hardness of the erection to allow penetration. ??? Loss of the erection before sex is finished. ??? Sometimes having normal erections, but with frequent unsatisfactory episodes. ??? Low sexual satisfaction in either partner due to erection problems. ??? A curved penis occurring with erection. The curve may cause pain, or the penis may be too curved to allow for intercourse. ??? Never having nighttime or morning erections. How is this diagnosed? This condition is often diagnosed by: ??? Performing a physical exam to find other diseases or specific problems with the penis. ??? Asking you detailed questions about the problem. ??? Doing tests, such as: ? Blood tests to check for diabetes mellitus or high cholesterol, or to measure hormone levels. ? Other tests to check for underlying health conditions. ? An ultrasound exam to check for scarring. ? A test to check blood flow to the penis. ??? Doing a sleep study at home to measure nighttime erections. How is this treated? This condition may be treated by: ??? Medicines, such as: ? Medicine taken by mouth to help you achieve an erection (oral medicine). ? Hormone replacement therapy to replace low testosterone levels. ? Medicine that is injected into the penis. Your health care provider may instruct you how to give yourself these injections at home. ? Medicine that is delivered with a short applicator tube. The tube is inserted into the opening at the tip of the penis, which is the opening of the urethra. A tiny pellet of medicine is put in the urethra. The pellet dissolves and enhances erectile function. This is also called MUSE (medicated urethral system for erections) therapy. ??? Vacuum pump. This is a pump with a ring on it. The pump and ring are placed on the penis and used to create pressure that helps the penis become erect. ??? Penile implant surgery. In this procedure, you may receive: ? An inflatable implant. This consists of cylinders, a pump, and a reservoir. The cylinders can be inflated with a fluid that helps to create an erection, and they can be deflated after intercourse. ? A semi-rigid implant. This consists of two silicone rubber rods. The rods provide some rigidity. They are also flexible, so the penis can both curve downward in its normal position and become straight for sexual intercourse. ??? Blood vessel surgery to improve blood flow to the penis. During this procedure, a blood vessel from a different part of the body is placed into the penis to allow blood to flow around (bypass) damaged or blocked blood vessels. ??? Lifestyle changes, such as exercising more, losing weight, and quitting smoking. Follow these instructions at home: Medicines ??? Take mdmf-ine-ivxqahy and prescription medicines only as told by your health care provider. Do not increase the dosage without first discussing it with your health care provider. ??? If you are using self-injections, do injections as directed by your health care provider. Make sure you avoid any veins that are on the surface of the penis. After giving an injection, apply pressure to the injection site for 5 minutes. ??? Talk to your health care provider about how to prevent headaches while taking ED medicines. These medicines may cause a sudden headache due to the increase in blood flow in your body. General instructions ??? Exercise regularly, as directed by your health care provider. Work with your health care provider to lose weight, if needed. ??? Do not u (more content not included)... [facility] 04-12-2024 Note HNO ID: [id number] Author: DEMETRIUS GUO RN Service: ? Author Type: Registered Nurse Type: Progress Notes Filed: 04/12/2024 14:11 Note Text: AUA= 11 [facility] 04-12-2024 History of Present illness Narrative AUA= [...] none Unable to have erection Androgen deprivation: Cbwwmps9m only, was discontinued PHYSICAL EXAM: BP 133/82 Pulse 70 Temp 36.1 C (97 F) Resp 18 Wt (!) 146.1 kg (322 lb 1.5 oz) SpO2 98% KPS: 100 General Appearance: Alert and oriented. No acute distress. Rectal exam is deferred. ASSESSMENT/PLAN: Prostate adenocarcinoma, initial PSA 4.3, biopsy Epworth score 3 + 4 = 7 (grade group 2), clinical stage T2a, N0, M0, stage IIB [T1-T2, N0, M0, PSA <20, GG 2] (AJCC 8th ed.), s/p TRUS Random and MRI fusion biopsy. Overall doing fairly well. PSA remains undetectable. Plan see patient back in one year for further postradiation follow-up. Signed by: Demond Butler MD cc: Kevin Brewer MD ([facility]) [address] [place] [address] Portions of the above note extracted and edited from previous visit as well as active information included in the EMR. documented in this encounter [facility] 04-12-2024 Note HNO ID: [id number] Author: Demond BUTLER MD Service: ? Author [...] none Unable to have erection Androgen deprivation: Uoemqck7c only, was discontinued PHYSICAL EXAM: BP 133/82 Pulse 70 Temp 36.1 ?C (97 ?F) Resp 18 Wt (!) 146.1 kg (322 lb 1.5 oz) SpO2 98% KPS: 100 General Appearance: Alert and oriented. No acute distress. Rectal exam is deferred. ASSESSMENT/PLAN: Prostate adenocarcinoma, initial PSA 4.3, biopsy Epworth score 3 + 4 = 7 (grade group 2), clinical stage T2a, N0, M0, stage IIB [T1-T2, N0, M0, PSA <20, GG 2] (AJCC 8th ed.), s/p TRUS Random and MRI fusion biopsy. Overall doing fairly well. PSA remains undetectable. Plan see patient back in one year for further postradiation follow-up. Signed by: Demond Butler MD cc: Kevin Brewer MD ([facility]) [address] [place] [address] Portions of the above note extracted and edited from previous visit as well as active information included in the EMR. [facility] 03-23-2024 History of Present illness Narrative Associated [...] List Items Addressed This Visit Prostate cancer ([facility]) Follow with specialists. Paroxysmal SVT (supraventricular tachycardia) ([facility]) Occasional palpitations and continue medication. Follow with cardiology. Medicare annual wellness visit, subsequent - Primary Reviewed labs. Discussed proper diet and regular aerobic exercise. Need aerobic exercise 5-6 days a week for 30 minutes at a time. Smaller portions and limit total calories. Colonoscopy every 10 years. Tetanus every 10 years. Advised not to smoke. documented in this encounter [facility] 03-08-2024 Evaluation + Plan note Associated Problem(s): Morbid obesity with BMI of 40.0-44.9, adult (Multi) Reviewed the merits of healthy lifestyle choices on overall cardiovascular health. [facility] Work Phone: 03-08-2024 Evaluation + Plan [...] appropriate and potentially safer approach than ablation. [facility] Work Phone: 03-08-2024 Miscellaneous Notes Associated [...] ablation. Associated Problem(s): Paroxysmal SVT (supraventricular tachycardia) ([facility]) Initial diagnosis August 2019 Has remained quiescent [...] heart rate greater than 200 bpm. Follow-up [facility] revealed SVT and was maintained on Cardizem [...] Compliant with meds documented in this encounter [facility] Work Phone: 03-08-2024 Evaluation + Plan note Associated Problem(s): Paroxysmal SVT (supraventricular tachycardia) ([facility]) Initial diagnosis August 2019 Has remained quiescent on propafenone since June 2021 EKG in office maintaining normal sinus rhythm with bifascicular block [facility] Work Phone: 03-08-2024 Evaluation + Plan note Associated Problem(s): Hypertension Optimal in office [facility] Work Phone: 03-08-2024 Evaluation + Plan note Associated Problem(s): HLD (hyperlipidemia) Low intensity statin Reports he is due for annual labs April 2024 [facility] Work Phone: 03-08-2024 Evaluation + Plan note Associated Problem(s): Cardiac and Vasculature Patient originally seen in cardiology consult August 2019 presented to hospital with heart rate greater than 200 bpm. Follow-up [facility] revealed SVT and was maintained on Cardizem until June 2021 at which time noted increasing episodes of palpitation and was initiated on propafenone. Cardiovascular testing included: August 2019 TTE LVEF 55 to 6% Left atrium mildly dilated LVH moderate November 2019 MPI no ischemia, no infarct [facility] Work Phone: 03-08-2024 Evaluation + Plan note Associated Problem(s): High risk medication use Propafenone initiated June 2021 EKG in office maintaining normal sinus rhythm November 2019 MPI no ischemia, no infarct August 2019 TTE LVEF 55 to 60% [facility] Work Phone: 03-08-2024 Evaluation + Plan note Associated Problem(s): Obstructive sleep apnea syndrome Compliant with meds [facility] Work Phone: 03-08-2024 History of Present [...] orthopedics next month. 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 Follow-up [facility] revealed SVT and was maintained on Cardizem [...] if new symptoms arise. Mary Tam MSN, TRANSPORT AIDE-TRANSCRIPTION, PMHNP-[facility] [place], [place] Please excuse any errors in grammar or translation related to this dictation. Voice recognition software was utilized to prepare this document. documented in this encounter [facility] Work Phone: 03-08-2024 Instructions GENA Hill [...] Mejía 6 months documented in this encounter [facility] Work Phone: 02-17-2024 History of Present [...] and has to use right arm to peanut picker leg getting in/out of truck. 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 X 15 minutes of therapeutic exercises: flexion based, self innom rotation METs PT Assessment: Therapy Diagnosis: LBP, sciatica, pain decreased with manual therapy Functional Limitations: Oswestry low back questionnaire: 12/50 points, 24% impairment Hat Mender Goals: in 6 weeks Centralize symptoms to [...] 3:48 PM EST documented in this encounter [facility] 12-21-2023 History of Present illness Narrative [...] spine wo contrast documented in this encounter [facility] 10-28-2023 History of Present illness Narrative [...] Depression: Not at risk (04/07/2023) [facility] PHQ-2 PHQ-2 score: 0 Physical Activity: [...] Sakina Nj DO documented in this encounter [facility] 05-11-2023 Hospital Discharge instructions Patient Education [...] provider. Document Revised: 08/12/2021 Document Reviewed: 08/12/2021 Lovely Patient Education 2022 Central Test. Follow Up Care 09/08/2022 12:26:22 With:CARINE DELGADO, Yin Patel, URL Address: [facility] [address] [place] [address]- [phone] When: Unknown Comments:PSA in 6 mos and f/u in 1 yr w/ repeat PSA [facility] [place] 04-07-2023 Nurse Note AUA=12 documented in this encounter [facility] 04-07-2023 History of Present illness Narrative [...] Demond Butler MD cc: Kevin Brewer MD ([facility]) [address] [place] [address] Portions of the above note extracted and edited from previous visit as well as active information included in the EMR. documented in this encounter [facility] 02-10-2023 History of Present illness Narrative [...] in office today documented in this encounter [facility] Work Phone: 02-10-2023 Instructions Felix Caal [...] of your visit. documented in this encounter [facility] Work Phone: 09-30-2022 History of Present illness Narrative Radiation Oncology - Follow Up Note PATIENT NAME: Luis Luis PATIENT DIAGNOSIS: Prostate adenocarcinoma, initial PSA 4.3, biopsy Epworth score 3 + 4 = 7 (grade [...] ASSESSMENT/PLAN: Prostate adenocarcinoma, initial PSA 4.3, biopsy Epworth score 3 + 4 = 7 (grade group 2), clinical stage T2a, N0, M0, stage IIB [T1-T2, N0, M0, PSA <20, GG 2] (AJCC 8th ed.), s/p TRUS Random and MRI fusion biopsy. PSA remains undetectable. No postradiation related issues. Plan see patient back in 6 months for further postradiation follow-up. Signed by: Demond Butler MD cc: Kevin Brewer MD ([facility]) [address] [place] [address] Portions of the above note extracted and edited from previous visit as well as active information included in the EMR. documented in this encounter [facility] 09-30-2022 Nurse Note AUA 14 Naida Jacobo RN documented in this encounter [facility] 09-08-2022 Hospital Discharge instructions Patient Education [...] urethra. Follow these instructions at home: Take jtso-azq-uhdkyre and prescription medicines only as told by [...] provider. Document Revised: 09/04/2021 Document Reviewed: 09/04/2021 Lovely Patient Education 2022 Central Test. Follow Up Care 03/21/2022 12:44:25 With:CARINE DELGADO, Yin Patel, URL Address: [facility] [address], [place] [address]- [phone] When:Within 8 Month(s) Comments:ASHER [facility] [place] 04-01-2022 History of [...] Yancy Oneill APRN.ANNA documented in this encounter [facility] 04-01-2022 History of Present illness Narrative [...] Demond Butler MD cc: Kevin Brewer MD ([facility]) [address] [place] [address] Portions of the above note extracted and edited from previous visit as well as active information included in the EMR. documented in this encounter [facility] 04-01-2022 Nurse Note AUA 14 Naida Jacobo RN documented in this encounter [facility] 03-21-2022 Hospital Discharge instructions Patient Education [...] cells. Follow these instructions at home: Take umbc-nuy-oycijkv and prescription medicines only as told by [...] 02/16/2006 Document Revised: 01/29/2018 Document Reviewed: 10/27/2016 Lovely Patient Education 2020 Central Test. Follow Up Care 09/30/2021 11:58:37 With:CARINE DELGADO, Yin Patel, URL Address: [address] [place] [address] [place] [address] When: Unknown Comments:6 mos w/ PSA [facility] 02-06-2022 Miscellaneous Notes Patient has been rescheduled & notified of appointment. Monica Rodríguez Pt has PSA scheduled with Dr Hawk in March and would like to postpone his follow up visit with Dr Butler until after that is done. PSS- please call pt and reschedule. He will be awaiting your call. Naida Jacobo RN documented in this encounter [facility] 09-30-2021 Hospital Discharge instructions Patient Education [...] urethra. Follow these instructions at home: Take vzoa-oqb-rbxybki and prescription medicines only as told by [...] 02/16/2006 Document Revised: 01/11/2019 Document Reviewed: 03/23/2017 Lovely Patient Education 2020 Central Test. Follow Up Care 04/01/2021 13:09:22 With:CARINE DELGADO, Yin Patel, URL Address: [facility] [address], [place] [address]- [phone] When:Within 6 Month(s) Comments:w/ PSA [facility] [place] 08-14-2021 Nurse Note AUA 18 Naida Jacobo RN documented in this encounter [facility] 08-14-2021 History of Present illness Narrative [...] Demond Butler MD cc: Kevin Brewer MD ([facility]) [address] [place] [address] documented in this encounter [facility] 08-09-2021 Hospital Discharge instructions Patient Education [...] including vitamins, herbs, eye drops, creams, and xgzg-hla-jlsrsld medicines. Any problems you or family members [...] 07/27/2006 Document Revised: 01/29/2018 Document Reviewed: 02/25/2017 Lovely Patient Education [email or web address] Follow Up Care 07/04/2021 11:13:01 With:CARINE DELGADO, Yin Patel, URL Address: [facility] [address], [place] [address]- [phone] When: Unknown [facility] 08-05-2021 Miscellaneous Notes Ok to resched Luis called in stating he tested positive for COVID-19 on 08/03/21 and his symptoms started , 08/01/21. He has a scheduled 6wk post implant follow up on 08/08/21. He will call us later in the week to possibly reschedule his follow up. Demetrius Guo LPN documented in this encounter [facility] 07-25-2021 History of Present illness Narrative Patient: Luis Luis Date:07/25/2021 [facility] Department of Radiation Oncology [facility] [...] M.D. 23:26 PM documented in this encounter [facility] 06-27-2021 History of Present illness Narrative Date: 06/27/21 Facility: [facility] Procedure: prostate transperineal brachytherapy implant Sources: [id number] [...] Butler MD (Signed electronically to expedite mailing) [facility] documented in this encounter [facility] 06-11-2021 History of Present illness Narrative [...] Demond Butler MD documented in this encounter [facility] 06-11-2021 History of Present illness Narrative LUIS LUIS [id number] 06/11/2021 [facility] Department of Radiation Oncology [facility] RADIATION ONCOLOGY SIMULATION NOTE DATE OF SIMULATION: 06/11/2021 MACHINE: [employer] 500 Diagnosis: 185 (Prostate Gland) AREA:Prostate PATIENT POSITION: Supine CONTRAST: None PROTOCOL: None CONCURRENT THERAPY: None FIXATION DEVICE: UTS Stabilization device by [employer]. PROCEDURE: Patient was simulated in exaggerated dorsal lithotomy position. Serial images of the prostate were acquired using TRUS and reconstructed in 3D space. These images were imported into [employer] Prostate planning system where a plan was generated. ASSESSMENT/PLAN: Patient tolerated simulation procedure well. Electronically Signed Chavez Butler M.D. / LAURA 25:05 PM documented in this encounter [facility] Evaluation + Plan note Future Appointments Appointment Date:08/05/2021 08:45:00 AM Scheduled Provider:Yin HAWK MD Location:[facility] Appointment Type:URO Office Visit Appointment Date:09/30/2021 10:30:00 AM Scheduled Provider:Yin HAWK MD Location:[facility] Appointment Type:URO Office Visit Future Scheduled TestsPT & PTT 03/05/21BUN 03/05/21Creatinine 03/05/21Electrolyte Panel 03/05/21CBC w/ Auto Diff 03/05/21XR Chest 2 Views 03/05/21 [facility] [place] Evaluation + Plan note Future Appointments Appointment Date:09/30/2021 10:30:00 AM Scheduled Provider:Yin HAWK MD Location:[facility] Appointment Type:URO Office Visit Diagnostic Tests PendingPSA Total 08/09/21 Future Scheduled TestsPT & PTT 03/05/21BUN 03/05/21Creatinine 03/05/21Electrolyte Panel 03/05/21CBC w/ Auto Diff 03/05/21XR Chest 2 Views 03/05/21 [facility] Evaluation + Plan note Future Appointments Appointment Date:03/21/2022 11:00:00 AM Scheduled Provider:Yin HAWK MD Location:[facility] Appointment Type:URO Office Visit Diagnostic Tests PendingPSA Total 09/30/21 Future Scheduled TestsPT & PTT 03/05/21BUN 03/05/21Creatinine 03/05/21Electrolyte Panel 03/05/21CBC w/ Auto Diff 03/05/21XR Chest 2 Views 03/05/21 [facility] Evaluation + Plan note Future Appointments Appointment Date:09/08/2022 10:15:00 AM Scheduled Provider:Yin HAWK MD Location:[facility] Appointment Type:URO Office Visit Diagnostic Tests PendingPSA Total 06/30/22 [facility] Evaluation + Plan note Future Appointments Appointment Date:05/11/2023 09:45:00 AM Scheduled Provider:Yin HAWK MD Location:[facility] Appointment Type:URO Office Visit Diagnostic Tests PendingPSA Total 09/08/22 [facility] Evaluation + Plan note Future Appointments Appointment Date:05/13/2024 09:45:00 AM Scheduled Provider:Yin HAWK MD Location:[facility] Appointment Type:URO Office Visit Diagnostic Tests PendingPSA Total 05/11/23 [facility] Diagnosis Malignant neoplasm of prostate (HCC)- Primary Malignant neoplasm of prostate [facility] Malignant neoplasm of prostate (HCC)- Primary Malignant neoplasm of prostate [facility] [place] [facility] Diagnosis Malignant neoplasm of prostate (HCC)- Primary Malignant neoplasm of prostate [facility] [place] [facility]* Diagnosis Prostate cancer (HCC) Malignant neoplasm of prostate [facility] [place] [facility]* Diagnosis Malignant neoplasm of prostate (HCC)- Primary Malignant neoplasm of prostate [facility] [place] [facility]* Diagnosis Malignant neoplasm of prostate (HCC)- Primary Malignant neoplasm of prostate [facility] [place] [facility]* Diagnosis Paroxysmal SVT (supraventricular tachycardia)- Primary Primary hypertension Unspecified essential hypertension Mixed hyperlipidemia Morbid obesity with BMI of 40.0-44.9, adult (CMS/HCC) Bifascicular block Other bilateral bundle branch block documented in this encounter [facility] Work Phone: Evaluation note* Diagnosis Malignant neoplasm of prostate (HCC)- Primary Malignant neoplasm of prostate [facility] [place] noteNo assessment information availableVeterans Health Administration Work Phone: Evaluation note* Diagnosis Morbid obesity due to excess calories (CMS/HCC)- Primary RENAE on CPAP Hypoxia Hypoxemia Snoring Other dyspnea and respiratory abnormality Daytime hypersomnolence [facility] [place] [facility]* Diagnosis Essential hypertension, benign (CMS/HCC)- Primary [...] specified cardiac dysrhythmias [facility]* Diagnosis Essential hypertension, benign [...] with right-sided sciatica documented in this encounter [facility]* Diagnosis Essential hypertension, benign [...] with right-sided sciatica documented in this encounter [facility]* Diagnosis Essential hypertension, benign [...] with right-sided sciatica documented in this encounter [facility]* Diagnosis Essential hypertension, benign [...] with right-sided sciatica documented in this encounter [facility]* Diagnosis Essential hypertension, benign [...] with right-sided sciatica documented in this encounter [facility]* Diagnosis Essential hypertension, benign [...] with right-sided sciatica documented in this encounter [facility]* Diagnosis Essential hypertension, benign [...] with right-sided sciatica documented in this encounter [facility]* Diagnosis Essential hypertension, benign [...] with right-sided sciatica documented in this encounter [facility]* Diagnosis Encounter for screening colonoscopy- Primary documented in this encounter [facility]* Diagnosis Essential hypertension, benign [...] Bilateral leg edema Edema SVT (supraventricular tachycardia) ([facility]/HCC) Other specified cardiac dysrhythmias Chronic right hip pain- Primary Degeneration of intervertebral disc of lumbar region with discogenic back pain and lower extremity pain documented in this encounter [facility]* Diagnosis Essential hypertension, benign [...] with right-sided sciatica [facility] Diagnosis Malignant neoplasm of prostate (Multi)- Primary Malignant neoplasm of prostate Paroxysmal SVT (supraventricular tachycardia) (CMS-HCC) Body mass index (BMI) 40.0-44.9, adult (Multi) High risk medication use Mixed hyperlipidemia Primary hypertension Unspecified essential hypertension Bifascicular block Other bilateral bundle branch block Morbid obesity with BMI of 40.0-44.9, adult (Multi) Obstructive sleep apnea syndrome Obstructive sleep apnea (adult) (pediatric) documented in this encounter [facility] Work Phone: Evaluation note* Diagnosis Essential [...] neoplasm of prostate documented in this encounter [facility]* Diagnosis Malignant neoplasm of prostate (HCC)- Primary Malignant neoplasm of prostate [facility] Diagnosis Malignant neoplasm of prostate (Multi)- Primary Malignant neoplasm of prostate Paroxysmal SVT (supraventricular tachycardia) ([facility]-HCC) Body mass index (BMI) 40.0-44.9, adult (Multi) High risk medication use Mixed hyperlipidemia Primary hypertension Unspecified essential hypertension Bifascicular block Other bilateral bundle branch block Morbid obesity with BMI of 40.0-44.9, adult (Multi) Obstructive sleep apnea syndrome Obstructive sleep apnea (adult) (pediatric) Bifascicular block Other bilateral bundle branch block Paroxysmal SVT (supraventricular tachycardia) ([facility]-HCC) High risk medication use Obstructive sleep apnea syndrome Obstructive sleep apnea (adult) (pediatric) Morbid obesity with BMI of 40.0-44.9, adult (Multi) Former cigarette smoker Personal history of tobacco use, presenting hazards to health documented in this encounter [facility] Work Phone: Evaluation note* Diagnosis Malignant neoplasm of prostate (Multi)- Primary Malignant neoplasm of prostate Paroxysmal SVT (supraventricular tachycardia) ([facility]) Body mass index (BMI) 40.0-44.9, adult (Multi) High risk medication use Mixed hyperlipidemia Primary hypertension Unspecified essential hypertension Bifascicular block Other bilateral bundle branch block Morbid obesity with BMI of 40.0-44.9, adult (Multi) Obstructive sleep apnea syndrome Obstructive sleep apnea (adult) (pediatric) Atrial fibrillation, unspecified type (Multi)- Primary Bifascicular block Other bilateral bundle branch block Paroxysmal SVT (supraventricular tachycardia) ([facility]-HCC) Typical atrial flutter (Multi) Abnormal electrocardiogram (ECG) (EKG) Abnormal findings on diagnostic imaging of heart and coronary circulation documented in this encounter [facility] Work Phone: Evaluation note* Diagnosis Malignant neoplasm of prostate (Multi)- Primary Malignant neoplasm of prostate Paroxysmal SVT (supraventricular tachycardia) ([facility]-HCC) Body mass index (BMI) 40.0-44.9, adult (Multi) High risk medication use Mixed hyperlipidemia Primary hypertension Unspecified essential hypertension Bifascicular block Other bilateral bundle branch block Morbid obesity with BMI of 40.0-44.9, adult (Multi) Obstructive sleep apnea syndrome Obstructive sleep apnea (adult) (pediatric) Atrial fibrillation, unspecified type (Multi) Abnormal electrocardiogram (ECG) (EKG) Abnormal findings on diagnostic imaging of heart and coronary circulation documented in this encounter [facility] Work Phone: Evaluation note* Diagnosis Malignant neoplasm of prostate (Multi)- Primary Malignant neoplasm of prostate Paroxysmal SVT (supraventricular tachycardia) ([facility]-HCC) Body mass index (BMI) 40.0-44.9, adult (Multi) High risk medication use Mixed hyperlipidemia Primary hypertension Unspecified essential hypertension Bifascicular block Other bilateral bundle branch block Morbid obesity with BMI of 40.0-44.9, adult (Multi) Obstructive sleep apnea syndrome Obstructive sleep apnea (adult) (pediatric) Atrial fibrillation, unspecified type (Multi) documented in this encounter [facility] Work Phone: Evaluation note* Diagnosis Malignant neoplasm of prostate (Multi)- Primary Malignant neoplasm of prostate Paroxysmal SVT (supraventricular tachycardia) Body mass index (BMI) 40.0-44.9, adult (Multi) High risk medication use Mixed hyperlipidemia Primary hypertension Unspecified essential hypertension Bifascicular block Other bilateral bundle branch block Morbid obesity with BMI of 40.0-44.9, adult (Multi) Obstructive sleep apnea syndrome Obstructive sleep apnea (adult) (pediatric) Paroxysmal SVT (supraventricular tachycardia)- Primary Atrial flutter, paroxysmal (Multi) Obesity Obesity, unspecified RENAE (obstructive sleep apnea) Obstructive sleep apnea (adult) (pediatric) Paroxysmal SVT (supraventricular tachycardia) documented in this encounter [facility] Work Phone: Evaluation note* Diagnosis Malignant neoplasm of prostate (Multi)- Primary Malignant neoplasm of prostate Paroxysmal SVT (supraventricular tachycardia) Body mass index (BMI) 40.0-44.9, adult (Multi) High risk medication use Mixed hyperlipidemia Primary hypertension Unspecified essential hypertension Bifascicular block Other bilateral bundle branch block Morbid obesity with BMI of 40.0-44.9, adult (Multi) Obstructive sleep apnea syndrome Obstructive sleep apnea (adult) (pediatric) Atrial tachycardia- Primary Other specified cardiac dysrhythmias Paroxysmal SVT (supraventricular tachycardia) Chronic anticoagulation Encounter for long-term (current) use of anticoagulants H/O cardiac radiofrequency ablation documented in this encounter [facility] Work Phone: Evaluation note* Diagnosis Malignant neoplasm of prostate (Multi)- Primary Malignant neoplasm of prostate Paroxysmal SVT (supraventricular tachycardia) Body mass index (BMI) 40.0-44.9, adult (Multi) High risk medication use Mixed hyperlipidemia Primary hypertension Unspecified essential hypertension Bifascicular block Other bilateral bundle branch block Morbid obesity with BMI of 40.0-44.9, adult (Multi) Obstructive sleep apnea syndrome Obstructive sleep apnea (adult) (pediatric) Paroxysmal SVT (supraventricular tachycardia) High risk medication use MCC (current) use of anticoagulants Long-term (current) use of anticoagulants Palpitations Primary hypertension Unspecified essential hypertension Unspecified right bundle-branch block Mixed hyperlipidemia RENAE on CPAP Former cigarette smoker Personal history of tobacco use, presenting hazards to health Morbid obesity with BMI of 40.0-44.9, adult (Multi) documented in this encounter [facility] Work Phone: Evaluation note* Diagnosis Essential hypertension, benign- Primary Essential hypertension, benign Bilateral leg edema Edema SOB (shortness of breath) on exertion Shortness of breath BPH without urinary obstruction Gastroesophageal reflux disease without esophagitis Esophageal reflux RENAE on CPAP SVT (supraventricular tachycardia) (HCC) Other specified cardiac dysrhythmias Encounter for long-term (current) use of medications Encounter for long-term (current) use of other medications Colon cancer screening Special screening for malignant neoplasms, colon Dyslipidemia Other and unspecified hyperlipidemia Morbid obesity due to excess calories ([facility]-HCC) Essential hypertension, benign- Primary Essential hypertension, benign Lumbar radiculopathy Thoracic or lumbosacral neuritis or radiculitis, unspecified Chronic right-sided low back pain with right-sided sciatica Bilateral leg edema Edema SVT (supraventricular tachycardia) (HCC) Other specified cardiac dysrhythmias Chronic right hip pain- Primary Degeneration of intervertebral disc of lumbar region with discogenic back pain and lower extremity pain Medicare annual wellness visit, subsequent- Primary Paroxysmal SVT (supraventricular tachycardia) (HCC) Prostate cancer (HCC) Malignant neoplasm of prostate Essential hypertension, benign- Primary Essential hypertension, benign Bilateral leg edema Edema Paroxysmal SVT (supraventricular tachycardia) (HCC) Degeneration of intervertebral disc of lumbar region with discogenic back pain and 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 Class 3 severe obesity due to excess calories without serious comorbidity with body mass index (BMI) of 40.0 to 44.9 in adult (CMS-HCC) documented in this encounter [facility]* Diagnosis Malignant neoplasm of prostate (Multi)- Primary Malignant neoplasm of prostate Paroxysmal SVT (supraventricular tachycardia) Body mass index (BMI) 40.0-44.9, adult (Multi) High risk medication use Mixed hyperlipidemia Primary hypertension Unspecified essential hypertension Bifascicular block Other bilateral bundle branch block Morbid obesity with BMI of 40.0-44.9, adult (Multi) Obstructive sleep apnea syndrome Obstructive sleep apnea (adult) (pediatric) Paroxysmal SVT (supraventricular tachycardia) Atrial flutter, unspecified type (Multi) documented in this encounter [facility] Work Phone: History of Present illness [...] of diet lifestyle modification exercise and weight loss.[facility] DO Work Phone: History of Present illness [...] merits of diet exercise and weight loss. [facility] DO Work Phone: Hospital course Narrative No data available for this section [facility] Discharge instructions No data available for this section [facility] Discharge instructions Additional Instructions Please return to emergency department for any new or worrisome symptoms including any return of palpitations, chest pain, shortness of breath, vomiting, fever. Follow-up with your family physician within the next 3 to 5 days and cardiology as directed.[facility] Work Phone: Progress note No data available for this section [facility] reason for referral (narrative)No reason for referral information [facility] Work Phone: Reason for visit Narrative* Rehabilitation - Outpatient (Routine) - Authorized Specialty Diagnoses / Procedures Referred By Contac t Referred To Contact Physical Therapy Diagnoses Lumbar radiculopathy Chronic right-sided low back pain with right-sided sciatica Procedures [place] OFFICE/OUTPATIENT NEW HIGH MDM 60 MINUTES Kevin Brewer MD [address] [place] [address] Phone: tel: fax: Franchesca Gray, PT [address] [place] [address] Phone: tel: fax: Referral ID Status Reason Start Date Expiration Date Visits Requested Visits Authorized [id number] Authorized Specialty Services Required 01/06/2024 07/04/2024 20 20 [facility] N[facility]* Rehabilitation - Outpatient (Routine) - Authorized Specialty Diagnoses / Procedures Referred By Contac t Referred To Contact Physical Therapy Diagnoses Lumbar radiculopathy Chronic right-sided low back pain with right-sided sciatica Procedures [place] OFFICE/OUTPATIENT NEW HIGH MDM 60 MINUTES Kevin Brewer MD [address] [place] [address] Phone: tel: fax: Franchesca Gray, PT [address] [place] [address] Phone: tel: fax: Referral ID Status Reason Start Date Expiration Date Visits Requested Visits Authorized [id number] Authorized Specialty Services Required 01/06/2024 07/04/2024 20 30 [facility] Narrative* Rehabilitation - Outpatient (Routine) - Authorized Specialty Diagnoses / Procedures Referred By Contac t Referred To Contact Physical Therapy Diagnoses Lumbar radiculopathy Chronic right-sided low back pain with right-sided sciatica Procedures [place] OFFICE/OUTPATIENT [facility] 60 MINUTES Kevin Brewer MD [address] [place] [address] Phone: tel: fax: Franchesca Gray, PT [address] [place] [address] Phone: tel: fax: Referral ID Status Reason Start Date Expiration Date Visits Requested Visits Authorized [id number] Authorized Specialty Services Required 01/06/2024 03/01/2024 20 30 [facility] Narrative* CV Imaging (Routine) - Pending Review Specialty Diagnoses / Procedures Referred By Contac t Referred To Contact Cardiology Diagnoses Atrial fibrillation, unspecified type (Multi) Abnormal electrocardiogram (ECG) (EKG) Abnormal findings on diagnostic imaging of heart and coronary circulation Procedures Cardiology Procedure Not Performed - Echo Transesophageal Echo (ANGELICA) [place] ECHO TRANSESOPHAG R-T 2D W/PRB IMG ACQUISJ I&R W[place] DOPPLER ECHO PULSE WAVE W/SPECTRAL DISPLAY COMPL W[place] DOPPLER ECHO COLOR FLOW VELOCITY MAPPING [place] ECHO TRANSESOPHAG R-T 2D W/PRB IMG ACQUISJ I&R WY DOPPLER ECHO PULSE WAVE W/SPECTRAL DISPLAY COMPL WY DOPPLER ECHO COLOR FLOW VELOCITY MAPPING WY CARDIOVERSION ELECTIVE ARRHYTHMIA EXTERNAL WY ECHO TRANSESOPHAG CONGEN PROBE PLCMT IMGNG I&R WY DOPPLER ECHO PULSE WAVE W/SPECTRAL DISPLAY COMPL W[place] DOPPLER ECHO COLOR FLOW VELOCITY MAPPING Mikaela Temple MD [address] [place] [address] Phone: tel: fax: Referral ID Status Reason Start Date Expiration Date Visits Requested Visits Authorized [id number] Pending Review Perform Procedure 06/07/2024 06/07/2025 1 1 [facility] Work Phone: Reason for visit Narrative* Cardiovascular (Routine) - Pending Review Specialty Diagnoses / Procedures Referred By Contac t Referred To Contact Cardiology Diagnoses Atrial fibrillation, unspecified type (Multi) Procedures Cardiology Procedure Not Performed Cardioversion External Mikaela Temple MD [address] [place] [address] Phone: tel: fax: Referral ID Status Reason Start Date Expiration Date V isits Requested Visits Authorized [id number] Pending Review 06/07/2024 06/07/2025 1 1 [facility] Work Phone: Reason for visit Narrative* Auth/Cert Specialty Diagnoses / Procedures Referred By Contac t Referred To Contact Diagnoses Paroxysmal SVT (supraventricular tachycardia) Procedures [place] COMPRE EP EVAL ABLTJ ATR FIB PULM VEIN ISOLATION Ablation Mikaela Alberts MD [address] [place] [address] Phone: tel: fax: [facility] [address] [place] [address] Phone: tel: fax: Referral ID Status Reason Start Date Expiration Date Visits Re quested Visits Authorized [id number] [facility] Work Phone: Reason for visit Narrative* Auth/Cert Specialty Diagnoses / Procedures Referred By Contac t Referred To Contact Diagnoses Paroxysmal SVT (supraventricular tachycardia) Procedures [place] COMPRE EP EVAL ABLTJ ATR FIB PULM VEIN ISOLATION Ablation Mikaela Alberts MD [address] [place] [address] Phone: tel: fax: [facility] [address] [place] [address] Phone: tel: fax: Referral ID Status Reason Start Date Expiration Date Visits Re quested Visits Authorized [id number] [facility] Work Phone: Summary Purpose Family History No Family History [...] Time Advance Directives No September 26 4:21pm Date Activated Date Inactivated Comments 06/13/2024 10:47 AM Question Answer Comments Plan of Care: Code Status Discussion Not Compl eted Decision Maker: Provider Rationale: Patient condition does not warra nt discussion Date Activated Date Inactivated Comments 06/13/2024 10:47 AM Question Answer Comments Plan of Care: Code Status Discussion Not Compl eted Decision Maker: Provider Rationale: Patient condition does not warra nt discussion Chief Complaint LUIS LUIS is being seen [...] Procedures ECG 12 Lead Parveen Santo MD [address] [place] [address] 2, [place] [phone] Referral ID Status Reason Start Date Expiration Date V isits Requested Visits Authorized [id number] Pending Review 02/10/2023 02/10/2024 1 1 Specialty Diagnoses / Procedures Referred By Myrtle romeo Referred To Contact Cardiology Diagnoses Paroxysmal SVT (supraventricular tachycardia) Procedures Follow Up In Cardiology Parveen Santo MD [address] [place] [address] 2, [place] [phone] Parveen Santo MD [address] [place] [address] 2, [place] [phone] Referral ID Status Reason Start Date Expiration Date V isits Requested Visits Authorized [id number] Authorized 02/10/2023 02/10/2024 1 1 Chief Complaint and Reason for Visit Chief Complaint Admit Date high heart rate September 11, 2024 10:0 7pm Additional Source Comments (unrecognized sect ion and content) No Status Records FoundNo Status Records FoundNo Status Records FoundNo Status Records FoundNo Status Records FoundNo Status Records FoundNo Status Records FoundNo Status Records FoundNo Status Records FoundNo Status Records FoundNo Status Records Found INFORMATION SOURCE (unrecogn ized section and content) DATE CREATED AUTHOR 12/03/2019 [facility] DATE CREATED AUTHOR AUTHOR'S ORGANIZ ATION 02/12/2022 [employer] DATE CREATED AUTHOR AUTHOR'S ORGANIZ ATION 07/10/2022 [facility] DATE CREATED AUTHOR AUTHOR'S ORGANIZ ATION 04/14/2024 [facility] DATE CREATED AUTHOR AUTHOR'S ORGANIZ ATION 05/17/2024 [facility] DATE CREATED AUTHOR AUTHOR'S ORGANIZ ATION 08/04/2024 [facility] DATE CREATED AUTHOR AUTHOR'S ORGANIZ ATION 08/07/2024 [facility] DATE CREATED AUTHOR AUTHOR'S ORGANIZ ATION 09/21/2024 [facility] DATE CREATED AUTHOR AUTHOR'S ORGANIZ ATION 10/01/2024 [facility] DATE CREATED AUTHOR AUTHOR'S ORGANIZ ATION 10/03/2024 [facility] DATE CREATED AUTHOR AUTHOR'S ORGANIZ ATION 11/05/2024 [facility] Source Comments (unrecognize d section and content) In the event this informatio n is protected by the Federal Confidentiality of Alcohol and Drug Abuse Patient Records regulations: The Federal rules restrict any use of the information to criminally investigate or prosecute any alcohol or drug abuse patient.[facility] Hospital[facility] the event this information is protected by the Federal Confidentiality of Alcohol and Drug Abuse Patient Records regulations: The Federal rules restrict any use of the information to criminally investigate or prosecute any alcohol or drug abuse patient.[facility] HospitalIn the event this information is protected by the Federal Confidentiality of Alcohol and Drug Abuse Patient Records regulations: The Federal rules restrict any use of the information to criminally investigate or prosecute any alcohol or drug abuse patient.[facility] HospitalIn the event this information is protected by the Federal Confidentiality of Alcohol and Drug Abuse Patient Records regulations: The Federal rules restrict any use of the information to criminally investigate or prosecute any alcohol or drug abuse patient.[facility] HospitalIn the event this information is protected by the Federal Confidentiality of Alcohol and Drug Abuse Patient Records regulations: The Federal rules restrict any use of the information to criminally investigate or prosecute any alcohol or drug abuse patient.[facility] HospitalIn the event this information is protected by the Federal Confidentiality of Alcohol and Drug Abuse Patient Records regulations: The Federal rules restrict any use of the information to criminally investigate or prosecute any alcohol or drug abuse patient.[facility] HospitalIn the event this information is protected by the Federal Confidentiality of Alcohol and Drug Abuse Patient Records regulations: The Federal rules restrict any use of the information to criminally investigate or prosecute any alcohol or drug abuse patient.[facility] HospitalIn the event this information is protected by the Federal Confidentiality of Alcohol and Drug Abuse Patient Records regulations: The Federal rules restrict any use of the information to criminally investigate or prosecute any alcohol or drug abuse patient.[facility] HospitalIn the event this information is protected by the Federal Confidentiality of Alcohol and Drug Abuse Patient Records regulations: The Federal rules restrict any use of the information to criminally investigate or prosecute any alcohol or drug abuse patient.[facility] HospitalIn the event this information is protected by the Federal Confidentiality of Alcohol and Drug Abuse Patient Records regulations: The Federal rules restrict any use of the information to criminally investigate or prosecute any alcohol or drug abuse patient.[facility] HospitalIn the event this information is protected by the Federal Confidentiality of Alcohol and Drug Abuse Patient Records regulations: The Federal rules restrict any use of the information to criminally investigate or prosecute any alcohol or drug abuse patient.[facility] HospitalIn the event this information is protected by the Federal Confidentiality of Alcohol and Drug Abuse Patient Records regulations: The Federal rules restrict any use of the information to criminally investigate or prosecute any alcohol or drug abuse patient.[facility] HospitalIn the event this information is protected by the Federal Confidentiality of Alcohol and Drug Abuse Patient Records regulations: The Federal rules restrict any use of the information to criminally investigate or prosecute any alcohol or drug abuse patient.[facility] HospitalIn the event this information is protected by the Federal Confidentiality of Alcohol and Drug Abuse Patient Records regulations: The Federal rules restrict any use of the information to criminally investigate or prosecute any alcohol or drug abuse patient.[facility] Teams (unrecognized sec tion and content) Director Executive Communications Relationship Specialty Start Date End Date Kevin Brewer [address] [place] [address] PCP - General Family Practice 03/22/21 Yin Hawk MD [address] [place] [address] Referring Urology 03/22/21 Director Executive Communications Relationship Specialty Start Date End Date Kevin Brweer [address] [place] [address] PCP - General Family Practice 03/22/21 Yin Hawk MD [address] [place] [address] Referring Urology 03/22/21 Director Executive Communications Relationship Specialty Start Date End Date AlabniaKevin lee [address] [place] [address] PCP - General Family Practice 03/22/21 Yin Hawk MD [address] [place] [address] Referring Urology 03/22/21 Director Executive Communications Relationship Specialty Start Date End Date Kevin Brewer [address] [place] [address] PCP - General Family Practice 03/22/21 Yin Hawk MD [address] [place] [address] Referring Urology 03/22/21 Director Executive Communications Relationship Specialty Start Date End Date Kevin Brewer [address] [place] [address] PCP - General Family Practice 03/22/21 Yin Hawk MD [address] [place] [address] Referring Urology 03/22/21 Director Executive Communications Relationship Specialty Start Date End Date Kevin Brewre [address] [place] [address] PCP - General Family Medicine 03/22/21 Yin Hawk MD [address] [place] [address] Referring Urology 03/22/21 Director Executive Communications Relationship Specialty Start Date End Date Kevin Brewer [address] [place] [address] PCP - General Family Medicine 03/22/21 Yin Hawk MD [address] [place] [address] Referring Urology 03/22/21 Director Executive Communications Relationship Specialty Start Date End Date Kevin Brewer [address] [place] [address] PCP - General Family Medicine 03/22/21 Yin Hawk MD [address] [place] [address] Referring Urology 03/22/21 Director Executive Communications Relationship Specialty Start Date End Date Kevin Brewer [address] [place] [address] PCP - General Family Medicine 03/22/21 Yin Hawk MD [address] [place] [address] Referring Urology 03/22/21 Director Executive Communications Relationship Specialty Start Date End Date Kevin Brewer MD [address] [place] [address] PCP - General Family Medicine 02/05/23 Director Executive Communications Relationship Specialty Start Date End Date Kevin Brewer [address] [place] [address] PCP - General Family Medicine 03/22/21 Yin Hawk MD [address] [place] [address] Referring Urology 03/22/21 Team Status: Inactive Member Role Status Dates Franchesca Nj DO Attending Provider Active Star t: November 17, 2023 End: November 17, 2023 Director Executive Communications Relationship Specialty Start Date End Date Kevin Brewer [address] [place] [address] PCP - General Family Medicine 03/22/21 Yin Hawk MD [address] [place] [address] Referring Urology 03/22/21 Director Executive Communications Relationship Specialty Start Date End Date Kevin Brewer [address] [place] [address] PCP - General Family Medicine 03/22/21 Yin Hawk MD [address] [place] [address] Referring Urology 03/22/21 Director Executive Communications Relationship Specialty Start Date End Date Kevin Brewer MD [address] [place] [address] PCP - General Family Medicine 06/29/23 Director Executive Communications Relationship Specialty Start Date End Date Kevin Brewer MD [address] [place] [address] PCP - General Family Medicine 06/29/23 Director Executive Communications Relationship Specialty Start Date End Date Kevin Brewer MD [address] [place] [address] PCP - General Family Medicine 06/29/23 Director Executive Communications Relationship Specialty Start Date End Date Kevin Brewer MD [address] [place] [address] PCP - General Family Medicine 06/29/23 Director Executive Communications Relationship Specialty Start Date End Date Kevin Brewer MD [address] [place] [address] PCP - General Family Medicine 06/29/23 Director Executive Communications Relationship Specialty Start Date End Date Kevin Brewer MD [address] [place] [address] PCP - General Family Medicine 06/29/23 Director Executive Communications Relationship Specialty Start Date End Date Kevin Brewer MD [address] [place] [address] PCP - General Family Medicine 06/29/23 Director Executive Communications Relationship Specialty Start Date End Date Kevin Brewer MD [address] [place] [address] PCP - General Family Medicine 06/29/23 Director Executive Communications Relationship Specialty Start Date End Date Kevin Brewer MD [address] [place] [address] PCP - General Family Medicine 06/29/23 Director Executive Communications Relationship Specialty Start Date End Date Kevin Brewer MD [address] [place] [address] PCP - General Family Medicine 06/29/23 Director Executive Communications Relationship Specialty Start Date End Date Kevin Brewer MD [address] [place] [address] PCP - General Family Medicine 06/29/23 Director Executive Communications Relationship Specialty Start Date End Date Kevin Brewer MD [address] [place] [address] PCP - General Family Medicine 06/29/23 Director Executive Communications Relationship Specialty Start Date End Date Kevin Brewer MD [address] [place] [address] PCP - General Family Medicine 06/29/23 Director Executive Communications Relationship Specialty Start Date End Date Kevin Brewer MD [address] [place] [address] PCP - General Family Medicine 06/29/23 Director Executive Communications Relationship Specialty Start Date End Date Kevin Brewer MD [address] [place] [address] PCP - General Family Medicine 06/29/23 Director Executive Communications Relationship Specialty Start Date End Date Kevin Brewer MD [address] [place] [address] PCP - General Family Medicine 06/29/23 Director Executive Communications Relationship Specialty Start Date End Date Kevin Brewer MD [address] [place] [address] PCP - General Family Medicine 06/29/23 Director Executive Communications Relationship Specialty Start Date End Date Kevin Brewer MD [address] [place] [address] PCP - General Family Medicine 06/29/23 Director Executive Communications Relationship Specialty Start Date End Date Kevin Brewer MD [address] [place] [address] PCP - General Family Medicine 06/29/23 Director Executive Communications Relationship Specialty Start Date End Date Kevin Brewer MD [address] [place] [address] PCP - General Family Medicine 06/29/23 Director Executive Communications Relationship Specialty Start Date End Date Kevin Brewer MD [address] [place] [address] PCP - General Family Medicine 06/29/23 Director Executive Communications Relationship Specialty Start Date End Date Kevin Brewer MD [address] [place] [address] PCP - General Family Medicine 02/05/23 Director Executive Communications Relationship Specialty Start Date End Date Kevin Brewer MD [address] [place] [address] PCP - General Family Medicine 06/29/23 Director Executive Communications Relationship Specialty Start Date End Date Kevin Brewer MD [address] [place] [address] PCP - General Family Medicine 06/29/23 Director Executive Communications Relationship Specialty Start Date End Date Kevin Brewer MD [address] [place] [address] PCP - General Family Medicine 06/29/23 Director Executive Communications Relationship Specialty Start Date End Date Kevin Brewer MD [address] [place] [address] PCP - General Family Medicine 03/22/21 Yin Hawk MD [address] [place] [address] Referring Urology 03/22/21 Director Executive Communications Relationship Specialty Start Date End Date Kevin Brewer MD [address] [place] [address] PCP - General Family Medicine 06/29/23 Kevin Brewer MD [address] [place] [address] PCP - ACO Reach 04/08/24 Director Executive Communications Relationship Specialty Start Date End Date Kevin Brewer MD [address] [place] [address] PCP - General Family Medicine 02/05/23 Director Executive Communications Relationship Specialty Start Date End Date Kevin Brewer MD [address] [place] [address] PCP - General Family Medicine 02/05/23 Director Executive Communications Relationship Specialty Start Date End Date Kevin Brewer MD [address] [place] [address] PCP - General Family Medicine 02/05/23 Director Executive Communications Relationship Specialty Start Date End Date Kevin Brewer MD [address] [place] [address] PCP - General Family Medicine 02/05/23 Director Executive Communications Relationship Specialty Start Date End Date Kevin Brewer MD [address] [place] [address] PCP - General Family Medicine 02/05/23 Director Executive Communications Relationship Specialty Start Date End Date Kevin Brewer MD [address] [place] [address] PCP - General Family Medicine 02/05/23 Director Executive Communications Relationship Specialty Start Date End Date Kevin Brewer MD [address] [place] [address] PCP - General Family Medicine 02/05/23 Director Executive Communications Relationship Specialty Start Date End Date Kevin Brewer MD [address] [place] [address] PCP - General Family Medicine 02/05/23 Cheryl Bautista PA-C [address] [facility] [place] [address] Physician Accounting Software Specialist Cardiology-Clinical Cardiac Electrophysiology 09/05/24 Team Status: Active Member Role Status Dates Kevin Brewer MD Primary Care Provider Active Team Status: Inactive Member Role Status Dates Kevin Brewer MD Primary Care Provider Active S tart: September 11, 2024 End: September 12, 2024 Estrellita Lynn MD Emergency Provider Active Start: September 11, 2024 End: September 12, 2024 Director Executive Communications Relationship Specialty Start Date End Date Kevin Brewer MD [address] [place] [address] PCP - General Family Medicine 02/05/23 Cheryl Bautista PA-C [address] [facility] [place] [address] Physician Accounting Software Specialist Cardiology-Clinical Cardiac Electrophysiology 09/05/24 Director Executive Communications Relationship Specialty Start Date End Date Kevin Brewer MD [address] [place] [address] PCP - General Family Medicine 06/29/23 Kevin Brewer MD [address] [place] [address] PCP - ACO Reach 04/08/24 Director Executive Communications Relationship Specialty Start Date End Date Kevin Brewer MD [address] [place] [address] PCP - General Family Medicine 02/05/23 Cheyrl Bautista PA-C [address] [facility] Medical [facility] [place] [address] Physician Accounting Software Specialist Cardiology-Clinical Cardiac Electrophysiology 09/05/24 Reason for Visit (unrecogniz ed section and content) Reason Comments Annual Exam Specialty Diagnoses / Procedures Referred By Contac t Referred To Contact Cardiology Diagnoses Paroxysmal SVT (supraventricular tachycardia) ([facility]) Procedures Follow Up In Cardiology Parveen Santo MD McGuinn, William P, MD Retired From Practice Referral ID Status Reason Start Date Expiration Date V isits Requested Visits Authorized [id number] Authorized 02/10/2023 02/10/2024 1 1 Specialty Diagnoses / Procedures Referred By Contac t Referred To Contact Radiation Oncology / RADIATION ONCOLOGY Diagnoses Malignant neoplasm of prostate Seed Implant at [facility] Procedures SEED IMPLANT Demond Butler MD [address] [facility] [place] [address] Demond Butler MD [address] [place] [address] [place] [address] Referral ID Status Reason Start Date Expiration Date V isits Requested Visits Authorized [id number] Authorized 06/27/2021 03/01/2022 99 99 Reason Comments FYI-No Action Needed Covid19 Concern Reason Comments Prostate Cancer Reason Comments Future Appointment Specialty Diagnoses / Procedures Referred By Contac t Referred To Contact Diagnoses Paroxysmal SVT (supraventricular tachycardia) Procedures ECG 12 Lead Parveen Santo MD [address] [facility] [address] [place] [address] Referral ID Status Reason Start Date Expiration Date V isits Requested Visits Authorized [id number] Pending Review 02/10/2023 02/10/2024 1 1 Specialty Diagnoses / Procedures Referred By Contac t Referred To Contact Radiation Oncology / RADIATION ONCOLOGY Diagnoses Malignant neoplasm of prostate SIM/JADA/Pelvis Procedures SIMULATION BREONNA IMRT 25 fractions Demond Butler MD [address] [facility] [address] [place] [address] Demond Butler MD [address] [place] [address] [place] [address] Referral ID Status Reason Start Date Expiration Date Visits Re quested Visits Authorized [id number] Closed 04/09/2021 03/01/2022 99 99 Reason Comments [...] Medicare Annual Wellness Visit Subsequen t wellness Reason Comments Follow-up Follow up for irregu lar heartbeat Reason Comments New Patient Visit Pt is here today est ablishing care, Bifascicular block and Paroxysmal SVT (supraventricular tachycardia) ([facility]) Specialty Diagnoses / Procedures Referred By Myrtle romeo Referred To Contact Cardiology Diagnoses Bifascicular block Paroxysmal SVT (supraventricular tachycardia) ([facility]) Esther Mejía MD [address] [place] [address] [address] [place] [address] Phone: tel: fax: Mikaela Temple MD [address] [place] [address] Phone: tel: fax: Referral ID Status Reason Start Date Expiration Date Visits Requested Visits Authorized [id number] Authorized Specialty Services Required 06/06/2024 06/06/2025 1 1 Reason Comments Follow-up 4 week for SVT/aflut ter ablation Specialty Diagnoses / Procedures Referred By Myrtle romeo Referred To Contact Diagnoses Paroxysmal SVT (supraventricular tachycardia) Procedures ECG 12 lead (Clinic Performed) Mikaela Temple MD [address] [facility] [address], [facility] [address] [place] [address] Phone: tel: fax: Referral ID Status Reason Start Date Expiration Date V isits Requested Visits Authorized [id number] Authorized 09/06/2024 09/06/2025 1 1 Reason Comments Follow-up 6 month Atrial fibri llation, unspecified type (Multi) Specialty Diagnoses / Procedures Referred By Contac t Referred To Contact Cardiology Diagnoses Paroxysmal SVT (supraventricular tachycardia) Procedures Follow Up In Cardiology Mary Tam, TRANSPORT AIDE-TRANSCRIPTION [address] [facility] [address] [place] [address] Phone: tel: fax: Esther Mejía MD [address] [facility] [address] [place] [address] Phone: tel: fax: Referral ID Status Reason Start Date Expiration Date V isits Requested Visits Authorized [id number] Authorized 03/08/2024 03/08/2025 1 1 Reason Comments Follow-up 6M Reason Comments ekg visit Specialty Diagnoses / Procedures Referred By Contac t Referred To Contact Diagnoses Paroxysmal SVT (supraventricular tachycardia) Atrial flutter, unspecified type (Multi) Procedures ECG 12 Lead Esther Mejía MD [address] [address] Phone: tel: fax: Referral ID Status Reason Start Date Expiration Date V isits Requested Visits Authorized [id number] Authorized 09/21/2024 09/21/2025 1 1 Goals (unrecognized section and content) Goals may be documented in a n alternate section Scheduled Active and Recently Administ ered Medications (unrecognized section and content) Medication Order 08/01/2024 08/02/2024 08/03/2024 chlorhexidine (Hibiclens) 4 % liquid (COMPLETED) Topical, Once, On Thu08/03/24 at 1215, For 1 dose, Preprocedure, For pre-op skin preparation 1206 (Given - Provid er: Abby Dean RN) pantoprazole (ProtoNix) EC tablet 40 mg 40 mg, oral, 2 times daily before meals, First dose on Thu08/03/24 at 1700, Phase II/On Unit, Do not crush, chew, or split. 1737 (Given - Provid er: Abby Dean RN) PRN Medication Order 08/01/2024 08/02/2024 08/03/2024 acetaminophen (Tylenol) tablet 650 mg 650 mg, oral, Every 4 hours PRN, pain mild (1-3), first line, Starting on Thu08/03/24 at 1638, Phase II/On Unit, If ordered PRN for pain, nurse is permitted to administer this medication for higher pain scores based on patient preference? Yes lidocaine-epinephrine (Xylocaine W/EPI) 1 %-1:100,000 injection (CANCELED) As needed, Starting on Thu08/03/24 at 1520, Intraprocedure 1520 (Given - Provid er: Mikaela Temple MD) ondansetron (Zofran) injection 4 mg(Linked Group 1) 4 mg, intravenous, Every 8 hours PRN, nausea/vomiting, first line, Starting on Thu08/03/24 at 1638, Phase II/On Unit, 1st Line. Give IV if patient is unable to take orally. If inadequate response within 60 minutes, proceed to next-line agent for same PRN reason or contact provider if no further options ordered. When administering via IV Push, administer over 3-5 minutes. ondansetron (Zofran) tablet 4 mg(Linked Group 1) 4 mg, oral, Every 8 hours PRN, nausea/vomiting, first line, Starting on Thu08/03/24 at 1638, Phase II/On Unit, 1st Line. Use oral route first, if possible. If inadequate response within 60 minutes, proceed to next-line agent for same PRN reason or contact provider if no further options ordered. Linked Groups Order Group 1: ondansetron (Zofran) tablet 4 mgJump to med 4 mg, oral, Every 8 hours PRN, nausea/vomiting, first line, Starting on Thu08/03/24 at 1638, Phase II/On Unit, 1st Line. Use oral route first, if possible. If inadequate response within 60 minutes, proceed to next-line agent for same PRN reason or contact provider if no further options ordered. Or ondansetron (Zofran) injection 4 mgJump to med 4 mg, intravenous, Every 8 hours PRN, nausea/vomiting, first line, Starting on Thu08/03/24 at 1638, Phase II/On Unit, 1st Line. Give IV if patient is unable to take orally. If inadequate response within 60 minutes, proceed to next-line agent for same PRN reason or contact provider if no further options ordered. When administering via IV Push, administer over 3-5 minutes. FOR RECORDS PERTAINING TO PATIENTS WHO ARE [...] BE BASED ON THE PRIMARY CLINICAL RECORDS. [facility] [email or web address] provides no warranty or guarantee of the accuracy or completeness of information in this document.
--- NOTE | 2024-11-09 09:13 | P.CN_ITS ---
Consult Note: HPI Data of Consult Patient: known to practice within the last 3 years Consult date: 11/09/24 Requesting Physician: Shaina Calhoun NP Primary Care Provider: Kevin Olivo MD Consult Narrative Reason for consult: low back right hip pain Narrative: Herbert Luis presents for evaluation of right low back pain. noting pain 8/10 sharp aching increasing to 10/10 with standing, walking, in the AM, stairs, bending, activity. pain improved with heat, sitting, and utilizing cane. denies fall/injury. hx of right hip oa with mild response to joint injections, previously declined orthopedic consultation to discuss joint replacement. cc:: CC: Shaina Calhoun NP Review of Systems ROS Musculoskeletal Reports: joint pain PFSH PFSH Medical History Prostate cancer ?C61 - Malignant neoplasm of prostate (ICD-10) Sleep apnea ?G47.30 - Sleep apnea, unspecified (ICD-10) Atrial fibrillation ?I48.91 - Unspecified atrial fibrillation (ICD-10) Hyperlipidemia ?E78.5 - Hyperlipidemia, unspecified (ICD-10) Edema ?R60.9 - Edema, unspecified (ICD-10) Broken arm ?S42.309A - Unspecified fracture of shaft of humerus, unspecified arm, initial encounter for closed fracture (ICD-10) Hypertension ?I10 - Essential (primary) hypertension (ICD-10) Cancer ?C80.1 - Malignant (primary) neoplasm, unspecified (ICD-10) Surgical History History of surgery on arm ?Z98.890 - Other specified postprocedural states (ICD-10) Hx of colonoscopy ?Z98.890 - Other specified postprocedural states (ICD-10) History of prostate surgery ?Z98.890 - Other specified postprocedural states (ICD-10) Family History Other Family history of cancer Family history of hypertension H/O cardiac radiofrequency ablation Hearing loss Heart disease Social History Within the past year, how often did you have a drink containing alcohol: 2-3 times a week Smoking status: Former smoker Second hand tobacco smoke exposure: No Non-prescribed substance use: denies use 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 Highest level of school completed/degree received: Bachelor's degree Meds Home Medications and Allergies Home Medications ?Medication ?Instructions ?Recorded ?Confirmed ?Type atorvastatin 10 mg tablet 10 mg PO QPM 08/17/23 History diltiazem HCl 180 mg 180 mg PO DAILY 08/17/2311/24 History capsule,extended release 24 hr furosemide 40 mg tablet 40 mg PO DAILY PRN edema 08/08/24 History potassium chloride 20 mEq 20 meq PO DAILY PRN hypokale dylon 08/17/23 08/08/24 History tablet,extended release (K-Tab) tamsulosin 0.4 mg capsule 0.4 mg PO DAILY 08/17/2311/24 History baclofen 10 mg tablet 10 mg PO DAILY 03/08/2411/24 History meloxicam 15 mg tablet 15 mg PO DAILY 03/08/2411/24 History multivitamin 1 tab PO DAILY 03/08/2411/24 History Allergies Allergy/AdvReac Type Severity Reaction Status Date / Time No Known Drug Allergies Allergy Verified 08/08/24 08:48 Exam Constitutional Documenting provider has reviewed patient's vital signs: yes Common normals: no apparent distress, oriented x3, healthy appearing, alert and well nourished General appearance: cooperative HENMT Common normals: normocephalic, hearing grossly normal bilaterally and moist oral mucous membranes Head and scalp: normocephalic Eye Common normals: PERRL Pupil: PERRL Neck & C-Spine Common normals: full ROM General: normal visual inspection Chest Common normals: inspection of chest normal Respiratory Common normals: normal respiratory effort, no retractions and no use of accessory muscles Back & Pelvis Lumbar spine/lower back: pain with ROM and lumbar spinal tenderness Sacroiliac joints: SI joint(s) abnormal Other: right sij positive dixie(patricks), gaenslens, thigh thrust, compression test Extremity Right lower extremity: hip joint Other: pain with internal/external log roll of right hip Neuro Common normals: oriented x3 Sensorium/orientation: alert Psych Common normals: mental status grossly normal, thought process normal, cooperative, affect normal, speech normal and activity/motor behavior normal Speech: normal speech Thought process: normal thought process Results Additional Findings Additional findings: If on a controlled substance or opioids, I have checked an [place]AR[place] report on this patient and there are no aberrancies noted in the prescribing history.??If on a controlled substance or opioid a drug screen was completed and reviewed within the last year, and if there has not been a drug screen completed we ordered one today to monitor higher risk, state monitored pain medication use. As part of providing excellent, safe, comprehensive care, the following was completed at our patient's visit: 1. A medication reconciliation and review to ensure accurate knowledge of current/active medications, including asking our patients to inform us about any inyb-gst-jjvungz medications or herbal remedies/nutritional supplemen ts/alternative remedies. 2. A review to specifically ensure our patients have had annual screening for screening for depression, screening for tobacco use, and screening for unhealthy alcohol use. For concerning screenings had a discussion with the patient, provided patient education, and recommended follow-up with primary care provider when appropriate. If patient noted with a risk of falling, they received education on strength, gait, and balance training to prevent future risk of falling. Portions of this note may have been carried over from the previous visit and updated as appropriate. Please note this office utilizes paper charting in addition to the electronic medical record. A list of current medications, vitals, and PMH is available there as the clinical staff outside of myself do not have access to [employer] charting during the clinic day operations. As part of providing quality comprehensive care the current medications, vitals, and PMH were reviewed in the paper chart. Assessment and Plan Assessment and Plan (1) Sacroiliitis: (2) Osteoarthritis of right hip: Plan The patient has had over 3 months of moderate to severe low back and right hip pain with functional impairment and inadequate response to conservative care including NSAIDS (unless there are contraindication such as concurrent blood thinners), multiple oral or topical pain medications, and home exercise program/physical therapy.? Patient has completed >6 weeks of guided home exercise program and/or formal physical therapy program without relief of their symptoms.? pt declining right SIJ injection under fluoroscopy for sacroiliitis pt would like to be referred to Dr Morales at [facility] orthopedics for evaluation of right hip OA and consideration of surgical intervention f/u prn
== END 2024-11-09 08:48 | disposition home or self-care (01) ==
LOC: PM 08:47
PROVIDERS: PCP Family Medicine; Visit Provider Nurse Practitioner
DX: M46.1 Sacroiliitis, not elsewhere classified (principal); M16.11 Unilateral primary osteoarthritis, right hip
CPT/HCPCS: G0463

== ENCOUNTER 2025-02-16 08:00 | Outpatient (OUT) | payer MEDICARE, SELFPAY ==
--- OUTSIDE RECORDS SUMMARY | 2025-02-20 07:20 | XMS_ITS | Clinical Summary ---
Author Organization [facility] Address [address] [place] [id number] Care Team Providers Care Program Instructor Name Role Phone Kevin Olivo MD Primary Care Provider [phone] Meño Grove MD Unavailable [phone] Shaina Calhoun CNP Unavailable Medications MedicationSigDispense QuantityRefillsLast FilledStart DateEnd DateStatus acetaminophen (TYLENOL) 325 mg tablet Take by mouth.03/07/2021ctive atorvastatin (LIPITOR) 10 mg tablet Take 10 mg by mouth.09/28/2019Active dilTIAZem LA (CARDIZEM LA) 240 mg 24 hr tablet Take 240 mg by mouth. 09/28/2019Active tamsulosin (FLOMAX) 0.4 mg Take 0.4 mg by mouth once daily.Active acetaminophen/diphenhydramine (TYLENOL PM EXTRA STRENGTH ORAL) Take by mouth.Active URO-MP 118-10-40.8-36 mg Take 1 capsule by mouth twice daily.08/09/2021ctive propafenone (RYTHMOL) 150 mg tablet Take 150 mg by mouth three times daily.Active baclofen 10 mg tablet Take 1 tablet by mouth once daily./ctive furosemide (LASIX) 40 mg tablet Take 40 mg by mouth at bedtime as needed.07/28/2023ctive glucosamine-chondroitin 500-400 mg capsule 03/08/2024tive meloxicam (MOBIC) 15 mg tablet Take 15 mg by mouth.02/17/2024ctive potassium chloride 20 mEq TbER Take 20 mEq by mouth at bedtime as needed.07/28/2023ctive dabigatran etexilate (PRADAXA) 150 mg pellets in packet Take 150 mg by mouth.06/07/2024tive metoprolol succinate ER (TOPROL XL) 25 mg 24 hr tablet Take 25 mg by mouth.09/19/2024tive amiodarone (PACERONE) 200 mg tablet Take 200 mg by mouth.09/19/2024tive sildenafil (VIAGRA) 100 mg tablet Take 100 mg by mouth.05/16/2024tive MULTI-VITAMIN ORAL Take by mouth.Active mupirocin (BACTROBAN) 2 % ointment Indications:Preop testingApply to both nares twice daily for the five days preceding your joint replacement surgery 22 g 01/10/2025 2:46 PM EST504/ctive Active Problems ProblemNoted DateDiagnosed DateProstate mbjokn7104/01/2022 Encounters DateTypeDepartmentCare YorwEwozxzsujxi50/31/2025Patient Update Orthopaedics [address] [facility] [place] [address] Bairon Styles MD 12/30/2024Patient Update Orthopaedics [address] [facility] [place] [address] Melissa Melgar RN Schedule Surgery (Right MARIA DE JESUS Posterior Isac 06/19/25 @ [facility] /Jeremy Acc 2/Trident 2/Lateral pegboard/Posterior approach/PAS stockings/2 hour case/)12/21/2024 9:15 AM EDTOffice Visit Orthopaedics [address] [facility] [place] [id number] Bairon Styles MD Osteoarthritis of right hip, unspecified osteoarthritis type12/12/2024 10:17 AM EDT - 12/12/2024 11:59 PM EDTHospital Encounter Radiology [address] [id number] Osteoarthritis of right hip, unspecified osteoarthritis type [M16.11] Discharge Disposition: Home12/12/2024 10:00 AM EDTOffice Visit Orthopaedics [address] [place] [address] Juan Patterson PA-C Osteoarthritis of right hip, unspecified osteoarthritis type12/05/2024Travelfrom Last 3 Months Family History Medical HistoryRelationCommentsProstate CancerBrother 1Prostate CancerBrother 2 Prostate CancerFatherCervical CancerMotherRelationStatusCommentsBrother 1Alive Brother 2AliveFatherDeceasedMotherDeceased Social History Tobacco UseTypesPacks/DayYears UsedDateSmoking Tobacco: FormerPipeQuit: 04/03/1981CigarsQuit: 04/03/1981Smokeless Tobacco: NeverAlcohol UseStandard Drinks/WeekCommentsYes0 (1 standard drink = 0.6 oz pure alcohol)2-3 times/wk PHQ-2AnswerDate RecordedPHQ-2 gygll8615Area Deprivation IndexAnswerDate RecordedNational Score (1-100), lower number is lower aodg972409/30/2022State Score (1-10), lower number is lower luji4143Data from: https://www.neighborhoodatlas.medicine.[facility].edu/. Last address used for [address]/30/2022Sex and Gender InformationValueDate RecordedSex Assigned at BirthNot on fileLegal AluFksj5103/22/2021 1:46 PM ESTGender Identity Not on fileSexual OrientationNot on file Last Filed Vital Signs Vital SignReadingTime TakenCommentsBlood Olmvypnu933/8204/12/2024 1:54 PM EST Jifcu153004/12/2024 1:54 PM JWDCtsmvnivbir81.1 ??C (97 ??F)04/12/2024 1:54 PM EST Respiratory Wwqq150104/12/2024 1:54 PM ESTOxygen Aorgabclhh01%04/12/2024 1:54 PM ESTInhaled Oxygen Concentration--Xzplzv185.6 kg (323 lb 3.1 oz)12/21/2024 9:41 AM IVHOkebks842 cm (6' 2 )12/12/2024 10:12 AM EDTBody Mass Index41. 10:12 AM EDT Plan of Treatment DateTypeDepartmentCare Team (Latest Contact Info)Illpzxaslvd12/17/2026 1:15 PM ESTOffice Visit Radiation Oncology [address] [place] [address] Demond High MD [address] [place] [address] [place] [address] 1 yr rv04/24/2025 1:00 PM ESTOffice Visit Orthopaedics [address] [place] [address] Bairon Styles MD [address] [place] [address] right hip06/19/2025 7:30 AM EDTHospital Encounter [facility] [address] [place] [address] Bairon Styles MD [address] [place] [address] Primary osteoarthritis of right hip [M16.11]06/19/2025 7:30 AM EDT - 06/19/2025 11:10 AM EDTSurgery [facility] [address] [place] [address] Bairon Styles MD [address] [place] [address] ROBOTIC ASSISTED TOTAL HIP ARTHROPLASTYNamePriorityAssociated DiagnosesDate/Time ROBOTIC ASSISTED TOTAL HIP ARTHROPLASTY Primary osteoarthritis of right hip 06/19/2025 7:30 AM EDTHealth MaintenanceDue DateLast DoneCommentsAbdominal Aortic Aneurysm Pkafxhnre21/02/1951Anxiety Defsiwxcw34/02/1969Depression Jnatahxjx84/02/1969Hepatitis C Nlugvcnxc98/02/1969DTaP,Tdap,Td Vaccine (1 - Tdap)1969Lipid Dpljdlszk75/02/1986CT Pfgqmyxippnb17/02/1996Cologuard (FIT-DNA)07/02/19956954Rgkgucfmycc83/02/1996Colorectal Cancer Mkfmwqbnh35/02/1996 Fecal Occult Blood07/02/19953158Etwtmyvebeewc03/02/1996Pneumococcal Vaccine: 50+ (1 of 1 - PCV)2000RSV Vaccine (1 - Risk 50-74 years 1-dose series)2000 Shingrix Vaccine (1 of 2)2000Medicare Annual Wellness Visit2015 Advance Directive Lqyjhufiir84/01/2025Covid-19 Vaccine (2024- season) 51, 05/19/2020, 04/28/2020Influenza Vaccine (#1)2024 11/28/2021, 11/28/2021, 12/14/2019, Additional history existsDiabetes Screening 8008/03/2024, 08/03/2024 Goals GoalPatient Goal TypeAssociated ProblemsRecent ProgressPatient-Stated?Author Autogenerated Goal Care PlanAutogenerated ProblemNoCroston Coord, Jennifer Procedures Procedure NamePriorityDate/TimeAssociated DiagnosisCommentsXR HIP GENERAL 3V PELV/AP/LAT WRQYNOrpktgy59/13/2025 10:37 AM EDT Osteoarthritis of right hip, unspecified osteoarthritis type from Last 3 Months Results * XR HIP GENERAL 3V PELV/AP/LAT RIGHT (12/12/2024 10:37 AM EDT)Anatomical Region LateralityModalityHipOtherSpecimen (Source)Anatomical Location / Laterality Collection Method / VolumeCollection TimeReceived Time12/12/2024 10:37 AM EDT Impressions 12/12/2024 11:22 AM EDT IMPRESSION: 1. ??Advanced right hip joint space narrowing and osteoarthropathy with suggestion of CPPD arthritis, pseudogout. Recooperer: SMITH ?? Transcribe Date/Time: Dec 12 2024 11:17A Dictated by : YOGESH SAMSON MD This examination was interpreted and the report reviewed and electronically signed by: YOGESH SAMSON MD on Dec 12 2024 11:20AM ??EST Narrative 12/12/2024 11:22 AM EDT * * *Final Report* * * DATE OF EXAM: Dec 12 2024 10:37AM ?? STX ?? [id number] ??- ??XR HIP 3V PELV+ AP/LAT RT ??/ PROCEDURE REASON: Osteoarthritis of right hip, unspecified osteoarthritis type ? * * * * Physician Interpretation * * * * EXAM: XR HIP 3V PELV+ AP/LAT RT HISTORY: Osteoarthritis of right hip, unspecified osteoarthritis type ?? . PT C/O OF PAIN ALONG LATERAL EDGE OF RIGHT HIP X1 YEAR. NO INJURY TECHNIQUE: XR HIP 3V PELV+ AP/LAT RT Laterality: RIGHT Number of different views (projections): 3 COMPARISON: CT 04/09/2021 and whole body bone scan 03/29/2021 RESULT: There is some slight diffuse increase sclerosis throughout the pelvis and proximal femurs. ??No discrete osseous lesion. No fracture or dislocation is present. There is mild left and advanced right hip joint space narrowing and osteoarthropathy. ??Some slight bone loss on the right. ??Subchondral cystic changes. ??Marginal osteophytes. ??There is a moderate size cam superiorly on the right. There is suggestion of chondrocalcinosis at the hips and pubis suggesting CPPD arthritis, pseudogout. Multiple small metal treatment seeds overlie the prostate. Procedure Note Provider, [facility] [place] - 12/12/2024 * * *Final Report* * * DATE OF EXAM: Dec 12 2024 10:37AM STX 5352 - XR HIP 3V PELV+ AP/LAT RT / PROCEDURE REASON: Osteoarthritis of right hip, unspecified osteoarthritis type * * * * Physician Interpretation * * * * EXAM: XR HIP 3V PELV+ AP/LAT RT HISTORY: Osteoarthritis of right hip, unspecified osteoarthritis type . PT C/O OF PAIN ALONG LATERAL EDGE OF RIGHT HIP X1 YEAR. NO INJURY TECHNIQUE: XR HIP 3V PELV+ AP/LAT RT Laterality: RIGHT Number of different views (projections): 3 COMPARISON: CT 04/09/2021 and whole body bone scan 03/29/2021 RESULT: There is some slight diffuse increase sclerosis throughout the pelvis and proximal femurs. No discrete osseous lesion. No fracture or dislocation is present. There is mild left and advanced right hip joint space narrowing and osteoarthropathy. Some slight bone loss on the right. Subchondral cystic changes. Marginal osteophytes. There is a moderate size cam superiorly on the right. There is suggestion of chondrocalcinosis at the hips and pubis suggesting CPPD arthritis, pseudogout. Multiple small metal treatment seeds overlie the prostate. IMPRESSION IMPRESSION: 1. Advanced right hip joint space narrowing and osteoarthropathy with suggestion of CPPD arthritis, pseudogout. Recooperer: PSCB Transcribe Date/Time: Dec 12 2024 11:17A Dictated by : YOGESH SAMSON MD This examination was interpreted and the report reviewed and electronically signed by: YOGESH SAMSON MD on Dec 12 2024 11:20AM EST Authorizing ProviderResult TypeResult StatusBrecristofer RONDON-CRAD-PAMAFinal Result from Last 3 Months Additional Health Concerns Active ProblemsNoted DateDiagnosed DateAutogenerated Uokxdom5101/02/2025 [place] [address] Care Teams Team MemberRelationshipSpecialtyStart DateEnd Date Kevin Olivo MD [address] [place] [address] PCP - GeneralFagaly Medicine03/22/21 Meño Grove MD [address] [place] [address] ReferringUrolog03/22/21 Shaina Calhoun, ANNA [address] [place] [address] Pain Management11/11/24
--- OUTSIDE RECORDS SUMMARY | 2025-02-20 07:20 | XMS_ITS | Clinical Summary ---
Author Organization [facility] Healthcare Address [address] [facility] [place] [address] Care Team Providers Care Technician Support [employer] Name Role Phone Kevin Olivo MD Primary Care Provider [phone] Kevin Olivo MD Unavailable Allergies No known active allergies Medications MedicationSigDispense QuantityRefillsLast FilledStart DateEnd DateStatus atorvastatin (Lipitor) 10 MG tablet Indications:DyslipidemiaTake 1 tablet (10 mg) by mouth at bedtime 30 tablet 4Active Glucosamine-Chondroitin 500-400 MG capsule 5Active furosemide (Lasix) 40 MG tablet Indications:Bilateral leg edemaTake 1 tablet (40 mg) by mouth Daily as needed (Leg Edema) 30 tablet 5Active meloxicam (Mobic) 15 MG tablet Indications:Lumbar radiculopathyTake 1 tablet (15 mg) by mouth Daily Take with food 30 tablet 5Active baclofen (Lioresal) 10 MG tablet Indications:Lumbar radiculopathyTake 1 tablet (10 mg) by mouth Daily 30 tablet /6Active potassium chloride CR (K-Tab) 20 MEQ ER tablet Indications:Bilateral leg edemaTake 1 tablet (20 mEq) by mouth Daily as needed (Use with furosemide) Do not crush, chew, or split. 30 tablet 50/5Active magnesium oxide (Mag-Ox) 400 MG tablet Take 1 tablet by mouth in the morning and 1 tablet in the evening.09/16/2024 6Active pantoprazole (ProtoNix) 40 MG EC tablet Take 40 mg by mouth in the morning and 40 mg in the evening. Take before meals. 5Active amiodarone (Pacerone) 200 MG tablet Take 200 mg by mouth in the morning.5Active dabigatran etexilate (Pradaxa) 150 MG capsule Take 150 mg by mouth in the morning and 150 mg in the evening.5Active metoprolol succinate XL (Toprol-XL) 25 MG 24 hr tablet Take 25 mg by mouth in the morning.5Active Active Problems ProblemNoted DateDiagnosed DateMedicare annual wellness visit, subsequent 03/23/2024 Assessment & Plan (03/23/2024 10:06 AM EST): Reviewed labs. Discussed proper diet and regular aerobic exercise. Need aerobic exercise 5-6 days aweek for 30 minutes at a time. Smaller portions and limit total calories. Colonoscopy every 10 years. Tetanus every 10 years. Advised not to smoke. Primary osteoarthritis of right hip02/17/2024 Assessment & Plan (09/20/2024 9:45 AM EDT): Pain unchanged and follow with pain management. Assessment & Plan (02/17/2024 2:40 PM EST): Pain in hip and groin, possibly related to arthritis. Check x-ray. Refer to pain management for evaluation and possible injections. Lumbar rfrfpmwzhcapt17/21/2024 Assessment & Plan (12/21/2023 9:34 AM EDT): Increased symptoms and abnormal exam. Check MRI. Degeneration of intervertebral disc of lumbar region with discogenic back pain and lower extremity pain12/21/2023 Assessment & Plan (09/20/2024 9:44 AM EDT): Pain stable and follow with pain management. Assessment & Plan (02/17/2024 2:40 PM EST): Continued pain and hard to walk. Continue mobic. Refer to pain management for evaluation. Assessment & Plan (12/21/2023 9:34 AM EDT): Increased pain and radicular symptoms. Abnormal exam on left leg. Check MRI and start PT. Use mobicPRN. Essential hypertension, zcvqss2606/29/2023 Assessment & Plan (09/20/2024 9:44 AM EDT): BP controlled and monitor PRN. Assessment & Plan (12/21/2023 9:34 AM EDT): BP elevated but previously controlled and monitor PRN. Assessment & Plan (06/29/2023 9:03 AM EDT): BP controlled and monitor PRN. BPH without urinary pcpwlwhidta05/29/2024 Assessment & Plan (06/29/2023 9:02 AM EDT): Symptoms controlled with flomax and continue. Npfgaapyhvgl50/29/2024Gastroesophageal reflux disease without esophagitis 06/29/2023 Assessment & Plan (06/29/2023 9:03 AM EDT): Symptoms controlled with OTC and continue. RENAE on CPAP06/29/2023 Assessment & Plan (06/29/2023 9:03 AM EDT): Sleeping well with CPAP and use nightly. Patient is benefiting from PAP therapy. Prostate eeberg5406/29/2023 Assessment & Plan (03/23/2024 10:06 AM EST): Follow with specialists. Paroxysmal SVT (supraventricular tachycardia)06/29/2023 Assessment & Plan (09/20/2024 9:44 AM EDT): Occasional palpitations and follow with cardiology. Assessment & Plan (03/23/2024 10:06 AM EST): Occasional palpitations and continue medication. Follow with cardiology. Assessment & Plan (12/21/2023 9:33 AM EDT): Occasional palpitations and continue medication. Follow with cardiology. Assessment & Plan (06/29/2023 9:04 AM EDT): Occasional palpitations and continue medication. Follow with cardiology. Class 3 severe obesity due to excess calories without serious comorbidity with body mass index (BMI) of 40.0 to 44.9 in adult06/29/2023 Assessment & Plan (09/20/2024 9:43 AM EDT): Weight loss indicated. Assessment & Plan (06/29/2023 9:03 AM EDT): Discussed proper diet and regular aerobic exercise. Recommend Weight Watchers and need to limit calories and smaller portions. Need to increase activity and regular aerobic exercise several days a week for 30 minutes at a time. Bilateral leg edema06/29/2023 Assessment & Plan (09/20/2024 9:43 AM EDT): Edema stable and continue lasix. Elevate legs PRN. Assessment & Plan (12/21/2023 9:34 AM EDT): Edema stable and continue lasix. Elevate legs PRN. Assessment & Plan (06/29/2023 9:02 AM EDT): Recent edema and check labs and echo. Possibly related to venous insufficiency and start lasix. Elevate legs PRN. Use compression. Encounter for long-term (current) use of kmwceaodxei67/29/2024 Resolved Problems ProblemNoted DateDiagnosed DateResolved DateSOB (shortness of breath) on ifbkvzif13 Assessment & Plan (06/29/2023 9:03 AM EDT): Increased SOB with exertion and check echo. Encounters DateTypeDepartmentCare EfczJqzblqfrpof39/16/2025 10:45 AM EDTOffice Visit [facility] [address] [place] [address] Mingo Garcia DPM Dermatophytosis of nail (Primary Dx); Dystrophic nail; Pain around toenail, right foot; Pain around toenail, left foot12/15/2024amboo flowsheet [facility] [address] [place] [phone] Mingo Garcia DPM 12/15/20242468Xzsypo49/15/3309Cpviez75/09/2025Travelfrom Last 3 Months Family History Medical HistoryRelationNameCommentsCancerBrother 1KeithHeart diseaseBrother 1 KeithCancerBrother 2KenHeart diseaseFatherHenryHypertensionFatherHenryHearing lossMotherDorisRelationNameStatusCommentsBrother 1KeithBrother 2KenFatherHenry DeceasedMotherDorisDeceased Social History Tobacco UseTypesPacks/DayYears UsedDateSmoking Tobacco: ZzsljdFhlvouuiuw000Dqvq Smokeless Tobacco: Never Tobacco Cessation:Counseling Given: Not Answered Comments:Smoked pipe a short time over 40 years ago. Alcohol UseStandard Drinks/WeekCommentsYes6 (1 standard drink = 0.6 oz pure alcohol)Typically have drinks with dinner.B1300 Health LiteracyAnswerDate RecordedHow often do you need to have someone help you when you read instructions, pamphlets, or other written material from your doctor or pharmacy? Never09/13/2024Humiliation, Afraid, Rape, and Kick questionnaireAnswerDate RecordedWithin the last year, have you been afraid of your partner or ex-partner?No09/13/2024Within the last year, have you been humiliated or emotionally abused in other ways by your partner or ex-partner?No09/13/2024 Within the last year, have you been kicked, hit, slapped, or otherwise physically hurt by your partner or ex-partner?No09/13/2024Within the last year, have you been raped or forced to have any kind of sexual activity by your part ner or ex-partner?No09/13/2024Social Connection and Isolation PanelAnswerDate RecordedIn a typical week, how many times do you talk on the phone with family, friends, or neighbors?More than three times a week09/13/2024How often do you get together with friends or relatives?Once a week09/13/2024How often do you attend oriental orthodox or jain services?More than 4 times per year09/13/2024Do you belong to any clubs or organizations such as oriental orthodox groups, unions, fraBeem or athletic groups, or school groups?Yes09/13/2024How often do you attend meetings of the clubs or organizations you belong to?1 to 4 times per year09/13/2024re you , , , , never , or living with a partner?Lmmhduq3609/13/2024UDIT-CAnswerDate RecordedQ1: How often do you have a drink containing alcohol?2-4 times a month09/13/2024Q2: How many drinks containing alcohol do you have on a typical day when you are drinking?3 or 4 09/13/2024Q3: How often do you have six or more drinks on one occasion?Never 09/13/2024Overall Financial Resource Strain (CARDIA)AnswerDate RecordedHow hard is it for you to pay for the very basics like food, housing, medical care, and heating?Not hard at all09/13/2024PHQ-2AnswerDate RecordedPatient Health Questionnaire-2 [facility]so574[facility] [place] [facility] - Occupational Stress QuestionnaireAnswerDate RecordedDo you feel stress - tense, restless, nervous, or anxious, or unable to sleep at night because yourmind is troubled all the time - these days?Not at all09/13/2024Exercise Vital SignAnswer Date RecordedOn average, how many days per week do you engage in moderate to strenuous exercise (like a brisk walk)?2 days09/13/2024On average, how many minutes do you engage in exercise at this level?20 min09/13/2024Hunger Vital SignAnswerDate RecordedWithin the past 12 months, you worried that your food would run out before you got the money to buymore.Never true09/13/2024Within the past 12 months, the food you bought just didn't last and you didn't have money to get more.Never true09/13/2024PRAPARE - TransportationAnswerDate RecordedIn the past 12 months, has lack of transportation kept you from medical appointments or from getting medications?No09/13/2024In the past 12 months, has lack of transportation kept you from meetings, work, or from getting things needed for daily living?No09/13/2024Housing Stability Vital SignAnswerDate RecordedIn the last 12 months, was there a time when you were not able to pay the mortgage or rent on time?No06/23/2023In the last 12 months, how many places have you lived?In the last 12 months, was there a time when you did not have a steady place to sleep or slept in [facility] (including now)?No 06/23/2023Housing Stability Vital SignAnswerDate RecordedIn the last 12 months, was there a time when you were not able to pay the mortgage or rent on time?No 09/13/2024In the past 12 months, how many times have you moved where you were living?t any time in the past 12 months, were you homeless or living in a group home (including now)?No09/13/2024Sex and Gender InformationValueDate RecordedSex Assigned at BirthNot on fileLegal XdmLxnk7705/14/2022 7:01 PM EDT Gender IdentityNot on fileSexual OrientationNot on file Last Filed Vital Signs Vital SignReadingTime TakenCommentsBlood Yfyghlur357/72009/20/2024 9:11 AM EDT Pqyfp281909/20/2024 9:11 AM UFWVgvaoolzmym70.3 ??C (97.3 ??F)09/20/2024 9:11 AM EDTRespiratory Rrfh667909/20/2024 9:11 AM EDTOxygen Evjocugegt45%09/20/2024 9:11 AM EDTInhaled Oxygen Concentration--Hktxji112 kg (317 lb)12/15/2024 10:56 AM EDT Sljgga770 cm (6' 2 )12/15/2024 10:56 AM EDTBody Mass Index40. 10:56 AM EDT Plan of Treatment Health MaintenanceDue DateLast DoneCommentsCT Xendslgleepe17/02/1951FIT-DNA 1950FIT1950FOBT1950 2163Ghcgfpfufstlq81/02/1951neumococcal Vaccine: 65+ Years (1 of 1 - PCV)2000COVID-19 Vaccine (4 - 2024- season) , 05/19/2020, 04/28/2020Influenza Vaccine (#1)2024 11/28/2021, 12/14/2019, 12/01/2019, Additional history existsMedicare Annual Wellness (AWV)6003/23/2024, 12/21/2023 (Patient Refused)Colonoscopy , 08/25/2023olorectal Cancer Btccnjtdf72/17/2034 Insurance * Guarantor: Herbert Luis TypeRelation to PatientDate of BirthPhone Billing AddressPersonal/ZnooqfRwju[birth year][address] [place] [address] Care Teams Team MemberRelationshipSpecialtySteighty eight DateEnd Date Kevin Olivo MD PCP - [facility]06/29/23 Kevin Olivo MD [address] [place] [address] PCP - [facility]04/08/24
--- OUTSIDE RECORDS SUMMARY | 2025-02-20 07:20 | XMS_ITS | Clinical Summary ---
Author Organization [facility] Address [address] [place] [address] Phone Care Team Providers Care Yacht Master Name Role Phone Kevin Olivo MD Primary Care Provider + Cheryl Bautista PA-C Unavailable [phone] Matias Banks MD Unavailable [phone] Allergies No known active allergies Medications MedicationSigDispense QuantityRefillsLast FilledStart DateEnd DateStatus tamsulosin (Flomax) 0.4 mg 24 hr capsule Take 1 capsule (0.4 mg) by mouth once daily.12/31/2022ctive furosemide (Lasix) 40 mg tablet Take 1 tablet (40 mg) by mouth once daily as needed.07/28/2023ctive potassium chloride CR 20 mEq ER tablet Take 1 tablet (20 mEq) by mouth once daily as needed.07/28/2023ctive meloxicam (Mobic) 15 mg tablet Take 1 tablet (15 mg) by mouth once daily.02/17/2024ctive baclofen (Lioresal) 10 mg tablet Take 1 tablet (10 mg) by mouth once daily at bedtime.Active glucosamine-chondroitin 500-400 mg tablet Take 1 tablet by mouth 2 times a day.Active sildenafil (Viagra) 100 mg tablet Take 1 tablet (100 mg) by mouth if needed for erectile dysfunction.05/16/2024 Active dabigatran etexilate (Pradaxa) 150 mg capsule Indications:Bifascicular block,Paroxysmal SVT (supraventricular tachycardia)Take 1 capsule (150 mg) by mouth 2 times a day. Do not crush or chew. 60 capsule 1105Active metoprolol tartrate (Lopressor) 25 mg tablet Indications:Atrial tachycardiaTake 1 tablet (25 mg) by mouth 2 times a day as needed (take if HR is > 100 bpm for more than 10mins). 60 tablet ctive atorvastatin (Lipitor) 10 mg tablet Indications:Mixed hyperlipidemiaTake 1 tablet (10 mg) by mouth once daily at bedtime. 90 tablet tive magnesium oxide (Mag-Ox) 400 mg (241.3 mg elemental) tablet Indications:Paroxysmal SVT (supraventricular tachycardia)Take 1 tablet by mouth 2 times a day. 180 tablet ctive metoprolol succinate XL (Toprol-XL) 25 mg 24 hr tablet Indications:Bifascicular block,Paroxysmal SVT (supraventricular tachycardia), Typical atrial flutter (Multi)Take 1 tablet (25 mg) by mouth once daily. Do not crush or chew. 90 tablet ctive Active Problems ProblemNoted DateDiagnosed DateUnspecified right bundle-branch block09/16/2024 Qseophaohjzq70/18/2025trial mpdpouftfzl66/08/2025Long term (current) use of dcsxiultsbjpcu92/08/2025H/O cardiac radiofrequency etintzzt34/08/2025Obesity 08/03/2024Former cigarette tohgff5306/06/2024Malignant neoplasm of prostate 03/08/2024High risk medication use03/08/2024 Assessment & Plan (03/08/2024 12:45 PM EST): Propafenone initiated June 2021 EKG in office maintaining normal sinus rhythm November 2019 MPI no ischemia, no infarct August 2019 TTE LVEF 55 to 60% RENAE on CPAP03/08/2024 Assessment & Plan (03/08/2024 9:12 AM EST): Compliant with meds Morbid obesity with BMI of 40.0-44.9, adult02/10/2023 Assessment & Plan (03/08/2024 12:48 PM EST): Reviewed the merits of healthy lifestyle choices on overall cardiovascular health. Bifascicular block02/10/2023 Assessment & Plan (03/08/2024 12:48 PM EST): Jan [address] Santo : [...] appropriate and potentially safer approach than ablation. HLD (hyperlipidemia)02/06/2023 Assessment & Plan (03/08/2024 12:47 PM EST): Low intensity statin Reports he is due for annual labs April 2024 Udwxjhgagmvm60/08/2023 Assessment & Plan (03/08/2024 12:47 PM EST): Optimal in office Paroxysmal SVT (supraventricular tachycardia)02/06/2023 Assessment & Plan (03/08/2024 12:48 PM EST): Initial diagnosis August 2019 Has remained quiescent on propafenone since June 2021 EKG in office maintaining normal sinus rhythm with bifascicular block Resolved Problems ProblemNoted DateDiagnosed DateResolved DateChest pain/08/2024 Encounters DateTypeDepartmentCare OakbTozsggdrvtw92/24/2025Refill at [facility] [address] [place] [address] Araceli Mayo CMA Bifascicular block; Paroxysmal SVT (supraventricular tachycardia); Typical atrial flutter (Multi)11/22/2024 11:15 AM EDTOffice Visit at [facility] [address] [place] [address] Matias Banks MD Primary hypertension; Atrial tachycardia Discharge Disposition: Home11/21/2024Travelfrom Last 3 Months Immunizations ImmunizationAdministration DatesNext DueFlu vaccine (IIV4), preservative free *Check age/dose*12/14/2019Flu vaccine, quadrivalent, high-dose, preservative free, age 65y+ (FLUZONE)11/28/2021Flu vaccine, trivalent, preservative free, HIGH-DOSE, age 65y+ (Fluzone)11/28/2021Influenza, seasonal, sxdlpqycbn98/01/2020 ,02/09/2012 Family History Medical HistoryRelationNameCommentsArrhythmiaBrother 1Keith BonnigsonAsthma Brother 1Keith BonnigsonCancerBrother 1Keith BonnigsonArrhythmiaBrother 2Kenneth BonnigsonCancerBrother 2Kenneth BonnigsonArrhythmiaBrother 3Keith Bonnigson AsthmaBrother 3Keith BonnigsonCancerBrother 3Keith BonnigsonArrhythmiaBrother 4 Steve BonnigsonCancerBrother 4Kenneth BonnigsonArrhythmiaBrother 5Keith BonnigsonAsthmaBrother 5Keith BonnigsonCancerBrother 5Keith BonnigsonArrhythmia Brother 6Kenneth BonnigsonCancerBrother 6Kenneth BonnigsonArrhythmiaFather 2 Joel BonnigsonCancerFather 2Henry BonnigsonArrhythmiaFather 4Henry Bonnigson CancerFather 4Henry BonnigsonNo Known ProblemsMotherDoris BonnigsonStrokeSister 1Joann FrischStrokeSister 2Joann FrischStrokeSister 3Joann FrischRelationName StatusCommentsBrother 1Keith BonnigsonAliveBrother 2Kenneth BonnigsonAlive Brother 3Keith BonnigsonAliveBrother 4Kenneth BonnigsonAliveBrother 5Keith BonnigsonAliveBrother 6Kenneth BonnigsonAliveFather 1Henry BonnigsonAliveFather 2Henry BonnigsonAliveFather 3DeceasedFather 4Henry BonnigsonAliveMotherDoris BonnigsonDeceasedSister 1Joann FrischAliveSister 2Joann FrischAliveSister 3Joann FrischAlive Social History Tobacco UseTypesPacks/DayYears UsedDateSmoking Tobacco: FormerCigarettes0.34.7 03/02/1971 - 03/02/1973Smokeless Tobacco: Never Tobacco Cessation:Counseling Given: Yes Comments:Was an occasional smoker of a pipe. Alcohol UseStandard Drinks/WeekCommentsYes6 (1 standard drink = 0.6 oz pure alcohol)socialSex and Gender InformationValueDate RecordedSex Assigned at Not on fileLegal UdsDlzl15/25/2022 12:12 PM ESTGender IdentityNot on fileSexual OrientationNot on file Last Filed Vital Signs Vital SignReadingTime TakenCommentsBlood Upbvyupa370/7009 11:39 AM EDT Ghstk1739 11:39 AM PYHYwpcikczsbm87.8 ??C (98.2 ??F)08/03/2024 4:10 PM EDTRespiratory Yuwj468608/03/2024 4:20 PM EDTOxygen Beacojhvum08%08/03/2024 4:30 PM EDTInhaled Oxygen Concentration--Umscaf284 kg (318 lb)11/22/2024 11:39 AM EDT Jnistb796 cm (6' 2 )11/22/2024 11:39 AM EDTBody Mass Index40.8309 11:39 AM EDT Plan of Treatment DateTypeDepartmentCare Team (Latest Contact Info)Qwrlafhciuy47/19/2026 10:15 AM ESTOffice Visit at [facility] [address] [facility] [address] [place] [address] Esther Mejía MD [address] [facility] [address] [place] [address] 07/03/2025 9:00 AM EDTAncillary Procedure at [facility] [address] [facility] [address] [place] [phone] 08/22/2025 11:15 AM EDTOffice Visit at [facility] [address] [facility] [address] [place] [phone] Matias Banks MD [address] [facility] [address], [facility] [address] [place], [place] [phone] Health MaintenanceDue DateLast DoneCommentsCT Rexfcvaeenje39/02/1951FIT-DNA (Cologuard)1950FIT1Lipid Panel1950MMR Vaccines (1 of 1 - Standard series)07/02/1951Hepatitis C Fxmqxlpio49/02/1969DTaP/Tdap/Td Vaccines (1 - Tdap)1972Pneumococcal Vaccine (1 of 1 - PCV)2000RSV High Risk: (Elderly (60+) or Population) (1 - Risk 50-74 years 1-dose series) 2000Zoster Vaccines (1 of 2)2000Abdominal Aortic Aneurysm (AAA) Phodieeyp82/02/2016COVID-19 Vaccine (1 - season)2024Influenza Vaccine (#1)/, 11/28/2021, 12/14/2019, Additional history existsMedicare Annual Wellness Visit (AWV)601/Diabetes Screening /05/20240738Wdsckibqobruj16/25/202906/6676Nfrjwrnbtxf15/17/2034 11/17/2023, 11/17/2023olorectal Cancer Dvwityisg99/17/2034HIB VaccinesAged Out No longer eligible based on patient's age to complete this topicHPV VaccinesAged OutNo longer eligible based on patient's age to complete this topicHepatitis A VaccinesAged OutNo longer eligible based on patient's age to complete this topic Hepatitis B VaccinesAged OutNo longer eligible based on patient's age to complete this topicIPV VaccinesAged OutNo longer eligible based on patient's age to complete this topicMeningococcal VaccineAged OutNo longer eligible based on patient's age to complete this topicRotavirus VaccinesAged OutNo longer eligible based on patient's age to complete this topic Procedures Procedure NamePriorityDate/TimeAssociated DiagnosisCommentsCOMPREHENSIVE METABOLIC IVEWSDRQH63/04/2025 11:56 AM EDT from Last 3 Months or Most Recently Relevant to Health Maintenance Results * Comprehensive Metabolic Panel (08/03/2024 11:56 AM EDT)ComponentValueRef Range Test MethodAnalysis TimePerformed AtPathologist IxalditqvYkubfzz9861 - 99 mg/dL LAB CHEMISTRY METHOD 08/03/2024 12:33 PM [facility] UOPXqucgd223775 - 145 mmol/L LAB CHEMISTRY METHOD 08/03/2024 12:33 PM [facility] LABPotassium3.93.5 - 5.3 mmol/L LAB CHEMISTRY METHOD 08/03/2024 12:33 PM [facility] HZAXljiihpa70941 - 107 mmol/L LAB CHEMISTRY METHOD 08/03/2024 12:33 PM [facility] NRJWibfmtcalhm6279 - 32 mmol/L LAB CHEMISTRY METHOD 08/03/2024 12:33 PM [facility] LABAnion Mdl4000 - 20 mmol/L LAB CHEMISTRY METHOD 08/03/2024 12:33 PM [facility] LABUrea Hoanukrk192 - 23 mg/dL LAB CHEMISTRY METHOD 08/03/2024 12:33 PM [facility] LABCreatinine0.860.50 - 1.30 mg/dL LAB CHEMISTRY METHOD 08/03/2024 12:33 PM [facility] LABeGFR>90>60 mL/min/1.73m*2 LAB CHEMISTRY METHOD 08/03/2024 12:33 PM [facility] LABComment: Calculations of estimated GFR are performed using the 2020 CKD-EPI Study Refit equation without therace variable for the IDMS-Traceable creatinine methods. https://jasn.asnjournals.org/content//ASN.5838150122 Calcium9.18.6 - 10.3 mg/dL LAB CHEMISTRY METHOD 08/03/2024 12:33 PM [facility] LABAlbumin4.33.4 - 5.0 g/dL LAB CHEMISTRY METHOD 08/03/2024 12:33 PM [facility] LABAlkaline Onsixzvgrlx8414 - 136 U/L LAB CHEMISTRY METHOD 08/03/2024 12:33 PM [facility] LABTotal Protein6.86.4 - 8.2 g/dL LAB CHEMISTRY METHOD 08/03/2024 12:33 PM [facility] UULPCK348 - 39 U/L LAB CHEMISTRY METHOD 08/03/2024 12:33 PM [facility] LABBilirubin, Total0.90.0 - 1.2 mg/dL LAB CHEMISTRY METHOD 08/03/2024 12:33 PM [facility] HQUDEK6894 - 52 U/L LAB CHEMISTRY METHOD 08/03/2024 12:33 PM [facility] LABComment:Patients treated with Sulfasalazine may generate falsely decreased results for ALT.Specimen (Source) Anatomical Location / LateralityCollection Method / VolumeCollection Time Received TimeBloodVenous blood specimen / UnknownVenipuncture / Unknown 08/03/2024 11:56 AM EDT08/03/2024 12:09 PM EDT Narrative Authorizing ProviderResult TypeResult Jeffery Fritz ARMORER TECHNICIAN-CNPLAB BLOOD ORDERABLESFinal ResultPerforming OrganizationAddressCity/State/ZIP CodePhone Number [facility] [address] [place] [address] from Last 3 Months or Most Recently Relevant to Health Maintenance Insurance * Guarantor: Herbert Luis TypeRelation to PatientDate of BirthPhone Billing AddressPersonal/OqkpcdNytx60/02/1951 [address] [place] [address] Advance Directives For more information, please contact: [phone] (Available ) * Full Code (Latest Code Status on File) Date ActivatedDate [facility]Combay[facility]06/13/2024 10:47 AMQuestionAnswerComments Plan of Care:* Code Status Discussion Not Completed Decision Maker:* Provider Rationale:* Patient condition does not warrant discussion Care Teams Team MemberRelationshipSpecialtyStart DateEnd Date Kevin [place] [address] PCP - GeneralFahily Hyckcudj12/7/23 Cheryl Bautista PA-C [address] [facility] [place], [place] [phone] Physician AssistantCardiology-Clinical Cardiac Electrophysiology09/05/24 Matias Banks MD [address] [facility], [facility] [address] [place], [place] [phone] Consulting PhysicianCardiology-Clinical Cardiac Electrophysiology11/18/24
--- OUTSIDE RECORDS SUMMARY | 2025-02-20 07:20 | XMS_ITS ---
Author Organization [facility] Address [address] [place] [address] Care Team Providers Care Developmental Services Worker Name Role Phone Kevin Olivo MD Primary Care Provider [phone] Meño Grove MD Unavailable [phone] Shaina Calhoun CNP Unavailable Active Problems ProblemNoted DateDiagnosed DateProstate slkayb0404/01/2022 Current Treatment and Therapy Plans No current plan information found. Past Treatment and Therapy Plans No past plan information found. Treatment Summaries Prostate cancer (HCC)* Treatment Summary and Survivorship Care Plan for Prostate Cancer Provided by: Yancy Oneill APRN.CNP General Information Patient Name: Herbert Luis Patient : 1950 Patient phone: Email: [email or web address] [facility] Care Providers Primary Care Provider: Dr. Kevin Olivo Urologic Surgeon: Dr. Meño Grove Radiation Oncologist: Dr. 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 External beam radiation: Yes Pelvis: Yes: End Date (year): May 22, 2021 (April 17, 2021 through May 22, 2021) Brachytherapy to prostate: Yes: End Date (year): June 27, 2021 RADIATION SUMMARY: DATES OF TREATMENT: Pelvic external beam 04/17/2021- 05/22/2021 Prostate brachytherapy: 06/27/2021 DELIVERED DOSE: Pelvis/ Prostate 45 Gy in 25 fractions Prostate brachytherapy 100 Gy, medium 103 sources, 107.14 mCi Systemic Therapy (chemotherapy, hormonal therapy, other): Yes Name of Agents Used: Lupron (or similar LHRH agonist): Ongoing Received 04/01/2021 09/30/2021 Presistent symptoms or side effects at completion of treatment: Yes: Occasional burning with urination- improved and improving. Follow-up Care Plan Schedule of clinical visits Coordinating Provider When/How often Dr. Arnol High Every 6 months x2 years, then once yearly. Dr. Meño Grove Per Dr. Grove Cancer surveillance or other recommended related tests Coordinating Provider Test How Often Dr. Arnol High PSA (Prostate Specific Antigen) Every 6 months x2 years, then once yearly. Dr. Meño Grove PSA (Prostate Specific Antigen) Per Dr. Grove Please continue to see your primary care provider for all general health care recommended for a (man) (women) your age, including cancer screening tests. Any symptoms should be brought to the attention of your provider: 1. Anything that represents a brand new symptom; 2. Anything that represents a persistent symptom; 3. Anything you are worried about that might be related to the cancer coming back. Possible late- and long-term effects that someone with this type of cancer and treatment may experience: Decreased sex drive, Enlarging breast tissue, Erectile dysfunction, Fatigue, Hair Loss, Hot flashes, Incontinence, Increased body fat, Loss of muscle mass, Metabolic syndrome (increased blood pressure, blood sugar, cholesterol), Mood swings, Osteoporosis, Painful urination, Rectal pain, Shorten ing of the penis, Skin irritation or darkening, Sterility, Tirdness, Trouble voiding or passing uring (urinary retention), and Urinary frequency Cancer survivors may experience issues with the areas listed below. If you have any concerns in these or other areas, please speak with your doctors or nurses to find out how you can get help with them: anxiety or depression , emotional or mental health, fatigue, fertility, financial advice or assistance, insurance, memory or concentration loss, parenting, physicial functioning, school/work, and sexual functioning A number of lifestyle/behaviors can affect your ongoing health, including the risk for the cancer coming back or developing another cancer. Discuss these recommendations with your doctor or nurse: alcohol use, diet, management of medications, management of other illnesses, physical activity, sun screen use, tobacco use/cessation, and weight management (loss/gain) Resources you may be interested in: www.cancer.net Sales Representative [employer] Labor Relations Specialist Art Therapy Support Groups- Contact Sales Representative [employer] for dates and times. Prepared by: Yancy Oneill APRN.HEALTH EDUCATION COORDINATOR Delivered on: April 01, 2022 - This Survivorship Care Plan is a cancer treatment summary and follow-up plan is provided to you to keep with your health care records and to share with your primary care provider. - This summary is a brief record of major aspects of your cancer treatment. You can share your copywith any of your doctors or nurses. However, this is not a detailed or comprehensive record of yourcare.
== END 2025-02-16 08:01 | disposition home or self-care (01) ==
LOC: FHNEUROLOG 02-20 07:18
PROVIDERS: PCP Family Medicine; Visit Provider Psychiatry & Neurology Neurology
DX: G47.33 Obstructive sleep apnea (adult) (pediatric) (principal)
CPT/HCPCS: G0463